=== PATIENT | male | born 1950 | race Caucasian/White ===

== ENCOUNTER 2017-11-19 07:22 | Day surgery (SDC) | payer OTHER, BC ==
[2017-11-18 11:21] VITALS: BMI 31.8
[2017-11-19] MEDS ORDERED: PROMETHAZINE HCL 25 MG/1 ML VIAL IVPB PRN (09:35)
[2017-11-19] MEDS ORDERED: ONDANSETRON 4 MG/2 ML VIAL IVPUSH PRN (09:35)
[2017-11-19] MEDS ORDERED: PROPOFOL 20 ML ONE ×2 (09:40→11:11)
[2017-11-19] MEDS ORDERED: MIDAZOLAM HCL 2 MG/2 ML SINGLE DOSE VIAL ONE (09:40)
[2017-11-19] MEDS ORDERED: LACTATED RINGERS SOLUTION 1,000 ML IV SCH (09:45)
[2017-11-19] MEDS ORDERED: ceFAZolin SODIUM 1 GM VIAL ONE (10:06)
[2017-11-19] MEDS ORDERED: SODIUM CHLORIDE 0.9% P/F 10 ML VIAL IJ ONE (10:06)
[2017-11-19] MEDS ORDERED: LIDOCAINE HCL/PF 2% SDV 5ML VIAL ONE (10:11)
[2017-11-19] MEDS ORDERED: ceFAZolin SODIUM 1 GM VIAL IVPB ONE ×2 (10:12)
[2017-11-19] MEDS ORDERED: LIDOCAINE HCL 1%, 10 MG/ML (20ML VIAL) PNB ONE (10:40)
--- NOTE | 2017-11-19 10:57 | EKG ---
Test Reason : Blood Pressure : / mmHG Vent. Rate : 067 BPM Atrial Rate : 067 BPM P-R Int : 182 ms QRS Dur : 086 ms QT Int : 406 ms P-R-T Axes : 063 053 055 degrees QTc Int : 429 ms NORMAL SINUS RHYTHM NORMAL ECG NO PREVIOUS ECGS AVAILABLE Confirmed by CLAY MOHAN, RHIANNA ([id number]) on 11/19/2017 10:57:26 AM Referred By: VIRAL AMAYA Confirmed By:RHIANNA WILLIAMSON MD
[2017-11-19] MEDS ORDERED: IOHEXOL 300 MG/ML INFUS..BTL IV ONE (11:39)
[2017-11-19] MEDS ORDERED: CLOPIDOGREL BISULFATE 75 MG TABLET (FP) PO ONE (11:52)
--- NOTE | 2017-11-19 11:52 | HP ---
Admitting History and Physical - Admission Chief Complaint: left heel ulcer - Advance Directives Advance Directives: Yes: Health Care Proxy - Smoking History Smoking history: Former smoker Have you smoked in the past 12 months: No If you are a former smoker, when did you quit?: 25 years ago - Alcohol/Substance Use Hx Alcohol Use: No Home Medications - Allergies Allergies/Adverse Reactions: Allergies Allergy/AdvReac Type Severity Reaction Status Date / Time levofloxacin [From Levaquin] Allergy Intermediate Verified 11/18/17 11:35 morphine Allergy Intermediate Vomiting Verified 11/18/17 11:35 codeine AdvReac Verified 10/13/17 15:00 - Home Medications Home Medications: Ambulatory Orders Collagenase Clostridium Hist. [Santyl] 1 applic TP DAILY #90 oint...g. 10/13/17 Amoxicillin/Potassium Clav [Augmentin 500-125 Tablet] 1 each PO BID 11/18/17 Aspirin Coated [Ecotrin -] 81 mg PO DAILY 11/18/17 Insulin Glargine/Lixisenatide [Soliqua 100 Unit-33 Mcg/ml Pen] 6 ml SQ ACBK Pregabalin [Lyrica] 100 mg PO BID 11/18/17 Review of Systems - Review of Systems Constitutional: reports: No Symptoms Eyes: reports: No Symptoms HENT: reports: No Symptoms Neck: reports: No Symptoms Cardiovascular: reports: No Symptoms Respiratory: reports: No Symptoms Gastrointestinal: reports: No Symptoms Genitourinary: reports: No Symptoms Breasts: reports: No Symptoms Reported Musculoskeletal: reports: No Symptoms Integumentary: reports: No Symptoms Neurological: reports: No Symptoms Endocrine: reports: No Symptoms Hematology/Lymphatic: reports: No Symptoms Psychiatric: reports: No Symptoms Physical Examination Vital Signs: Vital Signs Temperature 98.2 F 11/19/17 08:12 Pulse Rate 66 11/19/17 08:12 Respiratory Rate 18 11/19/17 08:12 Blood Pressure 138/76 11/19/17 08:12 O2 Sat by Pulse Oximetry (%) 97 11/19/17 08:13 Constitutional: Yes: Well Nourished, No Distress, Calm Eyes: Yes: WNL, Conjunctiva Clear, EOM Intact HENT: Yes: WNL, Atraumatic, Normocephalic Neck: Yes: WNL, Supple, Trachea Midline Cardiovascular: Yes: WNL, Regular Rate and Rhythm Respiratory: Yes: WNL, Regular, CTA Bilaterally Gastrointestinal: Yes: WNL, Normal Bowel Sounds Musculoskeletal: Yes: WNL Extremities: Yes: WNL Edema: No Integumentary: Yes: WNL Neurological: Yes: WNL, Alert, Oriented ...Motor Strength: WNL Psychiatric: Yes: WNL Problem List - Problems (1) Diabetic foot ulcer Code(s): E11.621 - TYPE 2 DIABETES MELLITUS WITH FOOT ULCER; L97.509 - NON- PRESSURE CHRONIC ULCER OTH PRT UNSP FOOT W UNSP SEVERITY Assessment/Plan left heel ulcer 1. for angiogram today
--- NOTE | 2017-11-19 11:56 | OP ---
Operative Note - Note: Operative Date: 11/19/17 Pre-Operative Diagnosis: left heel ulcer Operation: Aortogram, LLE angiogram, ant tibial artery angioplasty , SFA, Popliteal artery DCB angioplasty . Findings: SFA/Pop 80% stenosis Post-Operative Diagnosis: Same as Pre-op Anesthesia: Fractional Estimated Blood Loss (mls): 50 Operative Report Dictated: Yes
[2017-11-19 13:12] VITALS: TEMP 97.8
--- NOTE | 2017-11-19 16:35 | OP ---
DATE OF OPERATION: 11/19/2017 PREOPERATIVE DIAGNOSIS: Left heel ulcer. POSTOPERATIVE DIAGNOSIS: Left heel ulcer. PROCEDURE: Aortogram, left lower extremity angiogram, anterior tibial artery angioplasty, superficial popliteal artery, and DCB angioplasty. SURGEON: Matt Mix D.O. ANESTHESIA: Fractional. BLOOD LOSS: 50 mL. INDICATION FOR PROCEDURE: The patient is a 67-year-old male with a left heel ulcer that has been non-healing for about 6 months. Preoperative ultrasound showed that he has superficial popliteal artery disease and it was decided that he would need an angiogram. The patient was cleared by Cardiology. The patient then came through Ambulatory Surgery. The patient was consented for the procedure, understanding all the risks, benefits and alternatives and was then taken to the operating room. DESCRIPTION OF THE PROCEDURE: Once in the operating room he was laid on the operating table in a supine manner. The areas of the right and left groin were prepped and draped in a sterile surgical manner. We then injected 10 mL of lidocaine 1% into the right groin. We then went ahead and took our micropuncture needle and punctured the right common femoral artery. The micropuncture wire was inserted and the micropuncture sheath was inserted. We then placed a 0.035 floppy guidewire into the aorta followed by an Omniflush catheter. We then shot an aortogram via hand injection showing that the aorta and the coronary arteries were without any disease. We then placed a 0.035 floppy guidewire up and over to the left common femoral artery and into the SFA. We then placed a 6 x 45 crossover sheath up and over the left common femoral artery. Then 5000 units of IV heparin were administered to the patient. We then went ahead and shot an angiogram of the left lower extremity showing that the SFA, profunda, and the common femoral artery but the distal SFA had a 90% stenosis above the knee and the popliteal artery had an 80% stenosis. The anterior tibial artery was occluded. PT trunk was patent and the patient had a 2-vessel run off into the foot which was PT and peroneal. At this point we went ahead and got our 0.035 stiff guidewire through the stenosis and the SFA vein and popliteal artery and placed it down into the anterior tibial artery. We exchanged for a wire. We then used a 2.5 x 220 Ultraverse balloon and formed an angioplasty of the anterior tibial artery. We then went ahead and used a 4 x 100 DCB balloon and performed DCB angioplasty of the SFA vein and popliteal artery of both stenoses. Completion angiogram now showed that the SFA vein and popliteal arteries were patent. The anterior tibial artery was still occluded. TP trunk was patent and the patient had 2-vessel runoff into the foot. Opening the proximal lesions will now get more blood flow down to the heel and at this point no more intervention was needed. We brought our sheath up and over and the StarClose device was successfully deployed in the right common femoral artery. Pressure was up for 5 minutes. After there was no more bleeding, the area was wet and dried and Dermabond was placed. The patient tolerated the procedure with no complication. The patient was transferred to the PACU in stable condition. MATT MIX DO [id number]
[2017-11-19 17:19] VITALS: BP 142/74; PULSE 71
== END 2017-11-19 16:30 | disposition home or self-care (01) ==
LOC: JASU-SURG 07:22
PROVIDERS: ATTEND Surgery Vascular Surgery
PROC: 047L3Z1 Dilation of Left Femoral Artery using Drug-Coated Balloon, Percutaneous Approach (ICD-10-PCS; 2017-11-19)
PROC: B41DZZZ Fluoroscopy of Aorta and Bilateral Lower Extremity Arteries (ICD-10-PCS; 2017-11-19)
PROC: 047N3Z1 Dilation of Left Popliteal Artery using Drug-Coated Balloon, Percutaneous Approach (ICD-10-PCS; principal; 2017-11-19 09:00)
DX: E11.621 Type 2 diabetes mellitus with foot ulcer (principal); L97.509 Non-pressure chronic ulcer of other part of unspecified foot with unspecified severity; Z79.4 Long term (current) use of insulin; I70.202 Unspecified atherosclerosis of native arteries of extremities, left leg; Z87.891 Personal history of nicotine dependence
CPT/HCPCS: 37224; C1725; C2623; 76000-TC; 82962; 93005; 93010; 94760; J1644

== ENCOUNTER 2018-01-06 12:21 | Inpatient (IN) | payer OTHER, BC ==
[2018-01-06 12:27] VITALS: BMI 30.7
--- NOTE | 2018-01-06 12:33 | PDOC ---
History of Present Illness <Kaylene Garcia - Last Filed: 01/06/18 16:07> - History of Present Illness Initial Comments: 01/06/18 12:34 Mr. Red is a 67 yo male w/ pmh of DM, quadruple bypass, leg stent on plavix , stroke, and chronic wound to left heel recently grafted by Dr. Garcia who presents complaining of pain and swelling in his right hand. He had initially noticed a small cut to the mid proximal phalange of his 2nd finger on the right hand on friday and was given a bandaid to put on it at his hyperbarics session. He took off the bandage today and noticed that his finger had swollen. He also complains of pain with flexion/extension of the finger and that he believes the dorsum of his hand is swollen as well. Mr. Red cannot recall his last tetanus immunization. The patient denies chest pain, shortness of breath, headache and dizziness. Denies fever, chills, nausea, vomit, diarrhea and constipation. Denies dysuria, frequency, urgency and hematuria. Allergies: Levofloxacin, morphine, codeine <Raman Stoll - Last Filed: 01/06/18 16:49> - General Chief Complaint: Wound Stated Complaint: RT FINGER WOUND (WOUND CARE SENT) Time Seen by Provider: 01/06/18 12:33 Past History <Kaylene Garcia - Last Filed: 01/06/18 16:07> - Past Medical History Anemia: No Asthma: No Cancer: No Cardiac Disorders: No CVA: Yes COPD: No CHF: No Dementia: No Diabetes: Yes GI Disorders: No Disorders: No HTN: Yes Hypercholesterolemia: No Liver Disease: No Seizures: No Thyroid Disease: No - Surgical History Abdominal Surgery: Yes Appendectomy: No Cardiac Surgery: Yes (quad bypass) Cholecystectomy: No Lung Surgery: No Neurologic Surgery: Yes (diac replaced - titanium screws) Orthopedic Surgery: Yes - Immunization History Immunization Up to Date: Yes - Suicide/Smoking/Psychosocial Hx Smoking History: Never smoked Have you smoked in the past 12 months: No If you are a former smoker, when did you quit?: 25 years ago Information on smoking cessation initiated: No Hx Alcohol Use: No Drug/Substance Use Hx: No Substance Use Type: None <Raman Stoll - Last Filed: 01/06/18 16:49> - Past Medical History Allergies/Adverse Reactions: Allergies Allergy/AdvReac Type Severity Reaction Status Date / Time levofloxacin [From Levaquin] Allergy Intermediate Verified 01/06/18 12:24 morphine Allergy Intermediate Vomiting Verified 01/06/18 12:24 codeine AdvReac Verified 01/06/18 12:24 Home Medications: Ambulatory Orders Collagenase Clostridium Hist. [Santyl] 1 applic TP DAILY #90 oint...g. 10/13/17 Aspirin Coated [Ecotrin -] 81 mg PO DAILY 11/18/17 Insulin Glargine/Lixisenatide [Soliqua 100 Unit-33 Mcg/ml Pen] 6 ml SQ ACBK Pregabalin [Lyrica] 100 mg PO BID 11/18/17 Clopidogrel Bisulfate [Plavix -] 75 mg PO DAILY #120 tablet MDD 1 11/19/17 Becaplermin [Regranex] 15 gm TP DAILY #1 gel..gram. 11/28/17 Becaplermin [Regranex] 15 gm TP DAILY #1 gel..gram. 12/19/17 Review of Systems - Review of Systems Comments:: 01/06/18 12:34 GENERAL/CONSTITUTIONAL: No fever or chills. No weakness. HEAD, EYES, EARS, NOSE AND THROAT: No change in vision. No ear pain or discharge. No sore throat. CARDIOVASCULAR: No chest pain or shortness of breath RESPIRATORY: No cough, wheezing, or hemoptysis. GASTROINTESTINAL: No nausea, vomiting, diarrhea or constipation. GENITOURINARY: No dysuria, frequency, or change in urination. MUSCULOSKELETAL: +Right 2nd finger swelling with pain on movement and drainage to wound site. SKIN: No rash NEUROLOGIC: No headache, vertigo, loss of consciousness, or change in strength/ sensation. ENDOCRINE: No increased thirst. No abnormal weight change HEMATOLOGIC/LYMPHATIC: No anemia, easy bleeding, or history of blood clots. ALLERGIC/IMMUNOLOGIC: No hives or skin allergy. 01/06/18 12:50 <Raman Stoll - Last Filed: 01/06/18 16:49> *Physical Exam - Vital Signs Last Vital Signs Temp Pulse Resp BP Pulse Ox 97.4 F L 82 17 140/66 99 01/06/18 12:24 01/06/18 12:24 01/06/18 12:24 01/06/18 12:24 01/06/18 12:24 <Kaylene Garcia - Last Filed: 01/06/18 16:07> - Vital Signs Last Vital Signs Temp Pulse Resp BP Pulse Ox 97.4 F L 82 17 140/66 99 01/06/18 12:24 01/06/18 12:24 01/06/18 12:24 01/06/18 12:24 01/06/18 12:24 - Physical Exam Comments: 01/06/18 12:34 GENERAL: Awake, alert, and fully oriented, in no acute distress HEAD: No signs of trauma, normocephalic, atraumatic EYES: PERRLA, EOMI, sclera anicteric, conjunctiva clear ENT: Auricles normal inspection, hearing grossly normal, nares patent, oropharynx clear without exudates. Moist mucosa NECK: Normal ROM, supple, no lymphadenopathy, JVD, or masses LUNGS: No distress, speaks full sentences, clear to auscultation bilaterally HEART: Regular rate and rhythm, normal S1 and S2, no murmurs, rubs or gallops, peripheral pulses normal and equal bilaterally. ABDOMEN: Soft, nontender, normoactive bowel sounds. No guarding, no rebound. No masses EXTREMITIES: +Right 2nd proximal phalange has 1/2 cm abbrasion draining bloody fluid on dorsum of finger. Finger and dorsum of hand noted to be warm, swollen, and painful to flexion. NEUROLOGICAL: Cranial nerves II through XII grossly intact. Normal speech, normal gait, no focal sensorimotor deficits SKIN: Warm, Dry, normal turgor, no rashes or lesions noted. <Raman Stoll - Last Filed: 01/06/18 16:49> ED Treatment Course - LABORATORY CBC & Chemistry Diagram: 01/06/18 13:22 01/06/18 13:22 - ADDITIONAL ORDERS Additional order review: Laboratory Results 01/06/18 13:22 Sodium 139 Potassium 4.3 Chloride 105 Carbon Dioxide 24 Anion Gap 10 BUN 33 H Creatinine 2.6 H Creat Clearance w eGFR 24.67 Random Glucose 288 H Calcium 8.1 L Total Bilirubin 0.3 AST 13 L ALT 13 Alkaline Phosphatase 64 Total Protein 6.7 Albumin 2.9 L 01/06/18 13:22 RBC 3.73 L MCV 78.5 L MCHC 32.6 RDW 14.9 MPV 9.5 Neutrophils % 79.1 Lymphocytes % 11.2 Monocytes % 7.6 Eosinophils % 1.3 Basophils % 0.8 - Medications Given in the ED: ED Medications Discontinued Medications Generic Name Dose Route Start Last Admin Trade Name Melissa PRN Reason Stop Dose Admin Diphtheria/Tetanus/Acell Pertussis 0.5 ml 01/06/18 12:55 01/06/18 13:01 Boostrix - IM 01/06/18 12:56 0.5 ml .ONCE ONE Administration Vancomycin HCl 1,000 mg 01/06/18 12:56 01/06/18 14:05 Vancomycin (Pre-Docked) IVPB 01/06/18 12:57 1,000 mg ONCE ONE Administration Protocol <Kaylene Garcia - Last Filed: 01/06/18 16:07> - LABORATORY CBC & Chemistry Diagram: 01/06/18 13:22 01/06/18 13:22 <Raman Stoll - Last Filed: 01/06/18 16:49> Medical Decision Making - Medical Decision Making 01/06/18 14:35 Dr. Avila was paged and notified via phone service. Second page was placed at 15 :29. Third page was sent at 15:56. Dr. Avila returned our call at 16:07, her patients will be admitted to Hospitalist service. <Kaylene Garcia - Last Filed: 01/06/18 16:07> - Medical Decision Making 01/06/18 13:00 Mr. Red is a 67 yo male w/ pmh as described who presents w/ wound concerning for cellulitis. Wound culture sent. Tetanus booster given. Vancomycin /Unasyn started in ER. CBC/CMP/XR sent for further evaluation. 01/06/18 14:34 Dr. Avila (admitting for Dr. Adam) paged for admission. 01/06/18 16:47 Signout given to Kassidy (PRECIOUS). Admitted to Dr. Serrano <Raman Stoll - Last Filed: 01/06/18 16:49> *DC/Admit/Observation/Transfer <Kaylene Garcia - Last Filed: 01/06/18 16:07> - Discharge Dispostion Admit: Yes <Raman Stoll - Last Filed: 01/06/18 16:49> Diagnosis at time of Disposition: Cellulitis Qualifiers: Site of cellulitis: unspecified site Qualified Code(s): L03.90 - Cellulitis, unspecified - Referrals Referrals: Joaquín Adam MD [Primary Care Provider] -
[2018-01-06] MEDS ORDERED: DIPHTH,PERTUSS(ACELL),TET 0.5 ML DISP.SYRIN IM ONE (12:55)
[2018-01-06] MEDS ORDERED: VANCOMYCIN 1 GRAM (PRE-DOCKED) 1,000 MG/250 ML BAG IVPB ONE ×2 (12:56→14:00)
[2018-01-06] MEDS ORDERED: AMPICILLIN NA/SULBACTAM NA 3 GM in SODIUM CHLORIDE 100 ML IVPB ONE (13:02)
[2018-01-06 13:36] LABS: BASO % 0.8 % (0-2.0); EOS % 1.3 % (0-4.5); HEMATOCRIT 29.3 % (35.4-49); HEMOGLOBIN 9.6 GM/dL (11.7-16.9); LYMPH % 11.2 % (8-40); MCH 25.6 pg (25.7-33.7); MCHC 32.6 g/dl (32.0-35.9); MEAN CELL VOLUME 78.5 fl (80-96); MEAN PLT VOLUME 9.5 fl (7.5-11.1); MONO % 7.6 % (3.8-10.2); NEUT % 79.1 % (42.8-82.8); PLATELET COUNT 248 K/MM3 (134-434); RBC 3.73 M/mm3 (4.00-5.60); RDW 14.9 % (11.9-15.9); WHITE BLOOD COUNT 8.9 K/mm3 (4.0-10.0)
[2018-01-06 14:06] LABS: ALBUMIN 2.9 g/dl (3.4-5.0); ANION GAP 10 (8-16); BLOOD UREA NITROGEN 33 mg/dL (7-18); CALCIUM 8.1 mg/dL (8.5-10.1); CHLORIDE 105 mmol/L (98-107); CO2 24 mmol/L (21-32); CREATININE 2.6 mg/dL (0.7-1.3); GLUCOSE,RANDOM 288 mg/dL (74-106); POTASSIUM 4.3 mmol/L (3.5-5.1); SGOT/AST 13 U/L (15-37); SGPT/ALT 13 U/L (12-78); SODIUM 139 mmol/L (136-145)
[2018-01-06 14:07] LABS: ALK PHOS 64 U/L (45-117); BILIRUBIN,TOTAL 0.3 mg/dL (0.2-1.0); TOT PROT 6.7 g/dl (6.4-8.2)
--- NOTE | 2018-01-06 14:26 | PDOC ---
Attending Attestation - Resident Resident Name: Raman Stoll - ED Attending Attestation I have performed the following: I have examined & evaluated the patient, The case was reviewed & discussed with the resident, I agree w/resident's findings & plan, Exceptions are as noted - HPI HPI: 01/06/18 14:23 67-year-old male with history of CVA, CABG, diabetes sent from wound clinic with worsening right hand infection/swelling over the last 4 days. No fevers or chills, glucose has been at his baseline. - Physicial Exam PE: 01/06/18 14:24 Afebrile. 2-3 mm relatively superficial ulceration on the dorsal aspect of the proximal phalanx of the right index finger, surrounding near circumferential induration and erythema, dorsal hand swelling with discomfort extending to the distal third of the right forearm. There is no crepitus, there is circumferential swelling around the right index finger but no flexor tendon tenderness, full range of motion with brisk cap refill and intact sensation - Medical Decision Making 01/06/18 14:25 Patient seen and evaluated with the resident. I agree with the overall evaluation, assessment, and management with the following summary of visit: 67-year-old male diabetic with worsening right finger/hand cellulitis with proximal extension. Afebrile and neurovascularly intact, but progressive illness. Check labs and right hand x-ray IV antibiotics Likely observation overnight for iv abx Heart Score/ECG Review #1 ECG reviewed & interpreted by me at: 14:48 General ECG Interpretation: Sinus Rhythm, Normal Rate (79), Normal Intervals ( qtc 454), No acute ischemic changes (TWI I/AVL, Q in III)
--- NOTE | 2018-01-06 15:51 | EKG ---
Test Reason : Blood Pressure : / mmHG Vent. Rate : 079 BPM Atrial Rate : 079 BPM P-R Int : 174 ms QRS Dur : 092 ms QT Int : 396 ms P-R-T Axes : 051 022 066 degrees QTc Int : 454 ms NORMAL SINUS RHYTHM INCOMPLETE RIGHT BUNDLE BRANCH BLOCK ABNORMAL ECG WHEN COMPARED WITH ECG OF 19-NOV-2017 09:59, NO SIGNIFICANT CHANGE WAS FOUND Confirmed by MD Cruz, Garrett ([id number]) on 01/06/2018 3:50:56 PM Referred By: Confirmed By:Garrett Arroyo MD
--- NOTE | 2018-01-06 18:05 | HP ---
CHIEF COMPLAINT: Right hand tenderness and swelling PCP: Dr. Joaquín Adam HISTORY OF PRESENT ILLNESS: Patient is a 67 year old male with a significant past medical history of quadruple bypass, leg stent (on Plavix), CVA, chronic wound to left heal with a recent graft by Dr. Garcia. Patient was sent to the ED today after being seen at wound care for pain and swelling of his right hand, 2nd finger. Patient was scheduled for hyperbarics today but it was noted that his finger was swollen, reddended and tender to touch. He states he has limited range of motion and feels that his entire right hand is swollen. In the ED he was given a tetanus immunization. He was given a dose of Vancomycin and Unasyn also. On exam, patient is ambulatory with a steady gait, in no acute distress. States his right hand is painful to touch and he is unable to close his hand fully without experiencing pain/discomfort. Patient is s/p apiligraf on 2017 for left heal diabetic foot ulcer. Of note, in the ED he was noted to have an elevated creatinine of 2.6. No other visits on records to compare previous labs. ER course was notable for: (1) Vancomycin and Unasyn for right hand, 2nd finger cellulitis (2) Creatinine 2.6 (3) Right hand xray negative for fracture Recent Travel: PAST MEDICAL HISTORY: quadruple bypass, leg stent (on Plavix), CVA, chronic wound to left heal with a recent graft by Dr. Garcia. PAST SURGICAL HISTORY: Social History: Smoking: denies Alcohol: denies Drugs: denies Family History: Allergies levofloxacin [From Levaquin] Allergy (Intermediate, Verified 01/06/18 12:24) CHILLS/SHAKES morphine Allergy (Intermediate, Verified 01/06/18 12:24) Vomiting codeine Adverse Reaction (Verified 01/06/18 12:24) HOME MEDICATIONS: Home Medications Medication Instructions Recorded Collagenase Clostridium Hist. 1 applic TP DAILY #90 oint...g. 10/13/17 [Santyl] Aspirin Coated [Ecotrin -] 81 mg PO DAILY 11/18/17 Insulin Glargine/Lixisenatide 6 ml SQ ACBK 11/18/17 [Soliqua 100 Unit-33 Mcg/ml Pen] Pregabalin [Lyrica] 100 mg PO BID 11/18/17 Clopidogrel Bisulfate [Plavix -] 75 mg PO DAILY #120 tablet MDD 1 11/19/17 Becaplermin [Regranex] 15 gm TP DAILY #1 gel..gram. 11/28/17 Becaplermin [Regranex] 15 gm TP DAILY #1 gel..gram. 12/19/17 PHYSICAL EXAMINATION Vital Signs - 24 hr 01/06/18 12:24 Temperature 97.4 F L Pulse Rate 82 Respiratory 17 Rate Blood Pressure 140/66 O2 Sat by Pulse 99 Oximetry (%) GENERAL: Awake, alert, and fully oriented, in no acute distress. HEAD: Normal with no signs of trauma. EYES: Pupils equal, round and reactive to light, extraocular movements intact, sclera anicteric, conjunctiva clear. No lid lag. EARS, NOSE, THROAT: Ears normal, nares patent, oropharynx clear without exudates. Moist mucous membranes. NECK: Normal range of motion, supple without lymphadenopathy, JVD, or masses. LUNGS: Breath sounds equal, clear to auscultation bilaterally. No wheezes, and no crackles. No accessory muscle use. HEART: Regular rate and rhythm, normal S1 and S2 without murmur, rub or gallop. ABDOMEN: Soft, nontender, not distended, normoactive bowel sounds, no guarding, no rebound, no masses. No hepatomegaly or splenomegaly. LOWER EXTREMITIES: left heel diabetic foot ulcer s/p apilgraf, dressing c/d/i UPPER EXT: Right 2nd proximal phalange with 0.5cm of abrasion/scab, no open lesions. Finger and hand with limited ROM, warm and tender to touch NEUROLOGICAL: Normal speech. Normal gait. PSYCHIATRIC: Cooperative. Good eye contact. Appropriate mood and affect. + Laboratory Results - last 24 hr 01/06/18 01/06/18 13:22 13:22 WBC 8.9 RBC 3.73 L Hgb 9.6 L Hct 29.3 L MCV 78.5 L MCH 25.6 L MCHC 32.6 RDW 14.9 Plt Count 248 MPV 9.5 Neutrophils % 79.1 Lymphocytes % 11.2 Monocytes % 7.6 Eosinophils % 1.3 Basophils % 0.8 Sodium 139 Potassium 4.3 Chloride 105 Carbon Dioxide 24 Anion Gap 10 BUN 33 H Creatinine 2.6 H Creat Clearance w eGFR 24.67 Random Glucose 288 H Calcium 8.1 L Total Bilirubin 0.3 AST 13 L ALT 13 Alkaline Phosphatase 64 Total Protein 6.7 Albumin 2.9 L ASSESSMENT/PLAN: Patient is a 67 year old male with a significant past medical history of quadruple bypass, leg stent (on Plavix), CVA, chronic wound to left heal with a recent graft by Dr. Garcia. Patient was sent to the ED today after being seen at wound care for pain and swelling of his right hand, 2nd finger. Patient was scheduled for hyperbarics today but it was noted that his finger was swollen, reddended and tender to touch. He states he has limited range of motion and feels that his entire right hand is swollen. In the ED he was given a tetanus immunization. He was given a dose of Vancomycin and Unasyn also. On exam, patient is ambulatory with a steady gait, in no acute distress. States his right hand is painful to touch and he is unable to close his hand fully without experiencing pain/discomfort. Patient is s/p apiligraf on 2017 for left heal diabetic foot ulcer. Of note, in the ED he was noted to have an elevated creatinine of 2.6. No other visits on records to compare previous labs. Vascular: Right 2nd proximal phalange with 0.5cm of abrasion/scab, no open lesions Hand xray negative for fracture Start on Unasyn q8 Wound culture pending Blood cultures ordered, but given antbx in ED Monitor labs, vitals Vascular consult (Dr. Garcia) Endocrine: Diabetes II, chronic Novolg SS Renal: MALIA @ 2.6 No other labs to compare Hydrate overnight and repeat labs F.E.N. Fluids: NS @ 50cc/hr Electrolytes: monitor Nutrition: diabetic diet. Prophylaxis DVT: deferred, LOS < 48 hrs Disposition: full code. Visit type - Emergency Visit Emergency Visit: Yes ED Registration Date: 01/06/18 Care time: The patient presented to the Emergency Department on the above date and was hospitalized for further evaluation of their emergent condition. - New Patient This patient is new to me today: Yes Date on this admission: 01/06/18 - Critical Care Critical Care patient: No Hospitalist Screening - Colonoscopy Questionnaire Colonoscopy Questionnaire: Colonoscopy Questionnaire - Patient: 50 - 75 years old and never had a screening colonoscopy: Unknown History of colon or rectal polyps, or CA: Unknown History of IBD, Crohn's disease or UC: Unknown History of abdominal radiation therapy as a child: Unknown - Relative: 1 with colon or rectal CA, or polyps at age 60 or younger: Unknown Colon or rectal CA diagnosed at age 45 or younger: Unknown Multiple relatives with colon or rectal CA: Unknown - Outcome: Screening Result: Negative Screen
[2018-01-06] MEDS: SODIUM CHLORIDE 1,000 ML IV SCH (21:15)
[2018-01-06] MEDS ORDERED: INSULIN (NOVOLOG) ASPART 100 UNITS/ML 10ML VIAL ONE (21:17)
[2018-01-06] MEDS ORDERED: INSULIN SLIDING SCALE (NOVOLOG) 1 VIAL SQ SCH (22:00)
[2018-01-06] MEDS: PREGABALIN 100 MG CAPSULE PO SCH (22:16)
[2018-01-06] MEDS: ZOLPIDEM TARTRATE 5 MG TABLET PO PRN (22:16)
[2018-01-06] MEDS ORDERED: ACETAMINOPHEN 325 MG TABLET (FP) PO PRN (22:57)
[2018-01-07] MEDS: AMPICILLIN NA/SULBACTAM NA 3 GM in SODIUM CHLORIDE 100 ML IVPB SCH ×2 (01:23→09:59)
[2018-01-07] MEDS ORDERED: PT OWN MED DRAWER 7, Y5N ONE ×4 (09:52→17:11)
[2018-01-07] MEDS: CLOPIDOGREL BISULFATE 75 MG TABLET (FP) PO SCH (09:59)
[2018-01-07] MEDS: PREGABALIN 100 MG CAPSULE PO SCH ×2 (09:59→21:46)
--- NOTE | 2018-01-07 12:32 | CON.ID ---
Consult Consult Specialty:: infectious disease Referred by:: hospitalist service Reason for Consultation:: finger swelling - History of Present Illness Chief Complaint: finger swelling History of Present Illness: 67 year old man with longstanding diabetes, chronic left heel ulcer- followed at the wound care center by Dr Garcia seen Friday for apligraf placement for his chronic heel wound- he went to hyperbaric after and noted his finger was bleeding- not sure how that happened they gave him a bandaid on Friday he noted the finger was swollen, yesterday he noted pain and swelling of the hand with erythema streaking up the hand to the wrist no fevers seen in ED given tetanus toxoid and vanco/unasyn no blood cultures sent reports there was pus draining from the finger yesterday- now stopped no prior abscesses he has had 2 major surgeries in the last several years- no major infectious complications- cabg and gastric bypass 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 Medical History Cardio/Vascular: Yes: CAD, Other (PAD) Endocrine: Yes: Diabetes Mellitus - Past Surgical History Past Surgical History: Yes: CABG Additional Surgical History: gastric bypass, left leg stent - Alcohol/Substance Use Hx Alcohol Use: No History of Substance Use: reports: None - Smoking History Smoking history: Never smoked Have you smoked in the past 12 months: No If you are a former smoker, when did you quit?: 25 years ago - Social History ADL: Independent History of Recent Travel: No Home Medications - Allergies Allergies/Adverse Reactions: Allergies Allergy/AdvReac Type Severity Reaction Status Date / Time levofloxacin [From Levaquin] Allergy Intermediate Verified 01/06/18 12:24 morphine Allergy Intermediate Vomiting Verified 01/06/18 12:24 codeine AdvReac Verified 01/06/18 12:24 - Home Medications Home Medications: Ambulatory Orders Collagenase Clostridium Hist. [Santyl] 1 applic TP DAILY #90 oint...g. 10/13/17 Aspirin Coated [Ecotrin -] 81 mg PO DAILY 11/18/17 Insulin Glargine/Lixisenatide [Soliqua 100 Unit-33 Mcg/ml Pen] 6 ml SQ ACBK Pregabalin [Lyrica] 100 mg PO BID 11/18/17 Clopidogrel Bisulfate [Plavix -] 75 mg PO DAILY #120 tablet MDD 1 11/19/17 Becaplermin [Regranex] 15 gm TP DAILY #1 gel..gram. 12/19/17 Zolpidem Tartrate [Ambien] 0 mg PO HS 01/06/18 Family Disease History - Family Disease History Family History: Unremarkable Review of Systems - Review of Systems Constitutional: reports: No Symptoms. denies: Chills, Fever Eyes: reports: No Symptoms HENT: reports: No Symptoms Neck: reports: No Symptoms Cardiovascular: reports: No Symptoms. denies: Chest Pain Respiratory: reports: No Symptoms. denies: Cough Gastrointestinal: reports: No Symptoms. denies: Abdominal Pain, Diarrhea Genitourinary: reports: No Symptoms Neurological: reports: No Symptoms Physical Exam Vital Signs: Vital Signs Temperature 98.7 F 01/07/18 09:20 Pulse Rate 85 01/07/18 09:20 Respiratory Rate 18 01/07/18 09:20 Blood Pressure 134/62 01/07/18 09:20 O2 Sat by Pulse Oximetry (%) 98 01/06/18 20:19 Constitutional: Yes: Well Nourished, No Distress, Calm Eyes: Yes: WNL, Conjunctiva Clear HENT: Yes: Atraumatic, Normocephalic Neck: Yes: Supple, Trachea Midline Cardiovascular: Yes: Regular Rate and Rhythm Respiratory: Yes: Regular, CTA Bilaterally Gastrointestinal: Yes: Normal Bowel Sounds, Soft. No: Tenderness, Epigastrium ...Rectal Exam: Yes: Deferred Extremities: Yes: Other (swelling of the seond finger of the right hand, able to bend finger, +flluctuance, +erythema radial pulse 2+) Edema: No Peripheral Pulses WNL: Yes Neurological: Yes: Alert, Oriented Psychiatric: Yes: Alert, Oriented Labs: CBC, BMP 01/06/18 13:22 01/06/18 13:22 Microbiology 01/06/18 13:00 Wound Gram Stain - Final 01/06/18 13:00 Wound Wound Culture - Preliminary Presumptive Mrsa (Pbp2a Pos) Beta Hemolytic Strep Imaging - Results Chest X-ray: Report Reviewed X-ray: Report Reviewed Problem List - Problems (1) Cellulitis Code(s): L03.90 - CELLULITIS, UNSPECIFIED Qualifiers: Site of cellulitis: unspecified site Qualified Code(s): L03.90 - Cellulitis , unspecified (2) Abscess of finger of right hand Code(s): L02.511 - CUTANEOUS ABSCESS OF RIGHT HAND (3) Renal insufficiency Code(s): N28.9 - DISORDER OF KIDNEY AND URETER, UNSPECIFIED Assessment/Plan continue vancomycin based on levels- wound culture strep and probable mrsa isolate, redose if less then 15 hand surgery consult ?renal eval - is renal insuff new?
--- NOTE | 2018-01-07 13:47 | PN ---
Physical Exam: SUBJECTIVE: Patient seen and examined. He denies fever, chills. He has tenderness to r hand. Denies seeing a kidney doctor, knows his cr is high attributed to dehydration. OBJECTIVE: Vital Signs Period Temp Pulse Resp BP Sys/Snow Pulse Ox Last 24 Hr 98.6 F-99.4 F 80-85 18-18 115-146/54-85 96-98 PE Neuro: alert, awake, cn 2-12intact Pulm: CTAB CV: s1 s2 rrr no mrg Abd: s nt nd + bs Ext: R hand swelling, warm, R 2nd digit DIP swelling, erythema, tenderness, mild fluctuance Lfoot wound dressed +1 edema Laboratory Results - last 24 hr 01/06/18 01/06/18 01/07/18 13:22 21:14 06:59 Sodium 139 Potassium 4.3 Chloride 105 Carbon Dioxide 24 Anion Gap 10 BUN 33 H Creatinine 2.6 H Creat Clearance w eGFR 24.67 POC Glucometer 288 78 Random Glucose 288 H Calcium 8.1 L Total Bilirubin 0.3 AST 13 L ALT 13 Alkaline Phosphatase 64 Total Protein 6.7 Albumin 2.9 L Active Medications Generic Name Dose Route Start Last Admin Trade Name Freq PRN Reason Stop Dose Admin Acetaminophen 650 mg 01/06/18 22:57 Tylenol - PO Q6H PRN pain 4-6 Clopidogrel Bisulfate 75 mg 01/07/18 10:00 01/07/18 09:59 Plavix - PO 75 mg DAILY LINDA Administration Sodium Chloride 1,000 mls @ 50 mls/hr 01/06/18 19:30 01/06/18 21:15 Normal Saline - IV 01/07/18 19:18 50 mls/hr ASDIR LINDA Administration Insulin Aspart 1 vial 01/06/18 22:00 01/06/18 21:17 Novolog Vial Sliding Scale - SQ 6 units HS LINDA Administration Protocol Pregabalin 100 mg 01/06/18 22:00 01/07/18 09:59 Lyrica - PO 100 mg BID LINDA Administration Zolpidem Tartrate 5 mg 01/06/18 21:38 01/06/18 22:16 Ambien - PO 5 mg HS PRN Administration INSOMNIA Microbiology 01/06/18 13:00 Wound Gram Stain - Final 01/06/18 13:00 Wound Wound Culture - Preliminary Presumptive Mrsa (Pbp2a Pos) Beta Hemolytic Strep Assessment: 67 year old male with pmhx quadruple bypass, leg stent (on Plavix), CVA, chronic wound to left heal with a recent graft by Dr. Garcia admitted with cellulitis to R 2nd finger. Plan: 1. R hand 2nd digit cellulitis - Wound cx presumptive MRSA.strep - Stop Unysan - Vanco given in ED - Repeat Vanco level now, if <15 redose 1gm - Dr. Mcleod consulted for I&D 2. DM II - ISS, BGM ACHS - Pt has own insulin pen, NF here 3. s/p leg stent - Continue plavix 4. Diabetic Neuropathy - Lyrica 100mg BID 5. MALIA on ?CKD - UA and urine studies - Urine cr, sodium, electrolytes, renal us - Renal consulted Visit type - Emergency Visit Emergency Visit: Yes ED Registration Date: 01/06/18 Care time: The patient presented to the Emergency Department on the above date and was hospitalized for further evaluation of their emergent condition. - New Patient This patient is new to me today: Yes Date on this admission: 01/07/18 - Critical Care Critical Care patient: No
[2018-01-07] MEDS ORDERED: VANCOMYCIN 1 GRAM (PRE-DOCKED) 1,000 MG/250 ML BAG IVPB ONE (15:15)
--- NOTE | 2018-01-07 15:24 | CONSULT ---
Consult Consult Specialty:: Nephrology Reason for Consultation:: MALIA - History of Present Illness Chief Complaint: sent in for right second figure swelling and erythema History of Present Illness: Pt is a 67 year old male with pmhx of DM, CABG, PCD, and left foot wound who was sent in for pain and swelling of his right hand second finger. He denies fevers or chills. The wound started as a small cut. He denies fevers or chills. I was called to evaluate him for elevated creatinine. He denies dysuria or hematuria. He takes nsaids at times. He denies history of CKD. He does have foamy urine. - History Source History Provided By: Patient, Medical Record - Past Medical History Cardio/Vascular: Yes: CAD, Other (PAD) Endocrine: Yes: Diabetes Mellitus - Past Surgical History Past Surgical History: Yes: CABG Additional Surgical History: gastric bypass, left leg stent - Alcohol/Substance Use Hx Alcohol Use: No History of Substance Use: reports: None - Smoking History Smoking history: Never smoked Have you smoked in the past 12 months: No If you are a former smoker, when did you quit?: 25 years ago - Social History ADL: Independent History of Recent Travel: No Home Medications - Allergies Allergies/Adverse Reactions: Allergies Allergy/AdvReac Type Severity Reaction Status Date / Time levofloxacin [From Levaquin] Allergy Intermediate Verified 01/06/18 12:24 morphine Allergy Intermediate Vomiting Verified 01/06/18 12:24 codeine AdvReac Verified 01/06/18 12:24 - Home Medications Home Medications: Ambulatory Orders Collagenase Clostridium Hist. [Santyl] 1 applic TP DAILY #90 oint...g. 10/13/17 Aspirin Coated [Ecotrin -] 81 mg PO DAILY 11/18/17 Insulin Glargine/Lixisenatide [Soliqua 100 Unit-33 Mcg/ml Pen] 6 ml SQ ACBK Pregabalin [Lyrica] 100 mg PO BID 11/18/17 Clopidogrel Bisulfate [Plavix -] 75 mg PO DAILY #120 tablet MDD 1 11/19/17 Becaplermin [Regranex] 15 gm TP DAILY #1 gel..gram. 12/19/17 Zolpidem Tartrate [Ambien] 0 mg PO HS 01/06/18 Family Disease History - Family Disease History Family History: Denies Review of Systems - Review of Systems Constitutional: denies: Chills, Fever Eyes: reports: No Symptoms HENT: reports: No Symptoms Neck: reports: No Symptoms Cardiovascular: reports: No Symptoms Respiratory: reports: No Symptoms Gastrointestinal: reports: No Symptoms Genitourinary: reports: No Symptoms Musculoskeletal: reports: No Symptoms Integumentary: reports: Erythema, Wound Neurological: reports: No Symptoms Endocrine: reports: No Symptoms Hematology/Lymphatic: reports: No Symptoms Psychiatric: reports: No Symptoms Physical Exam Vital Signs: Vital Signs Temperature 98.7 F 01/07/18 09:20 Pulse Rate 85 01/07/18 09:20 Respiratory Rate 18 01/07/18 09:20 Blood Pressure 134/62 01/07/18 09:20 O2 Sat by Pulse Oximetry (%) 98 01/06/18 20:19 Constitutional: Yes: Calm Eyes: Yes: Conjunctiva Clear HENT: Yes: Atraumatic Cardiovascular: Yes: S1, S2 Respiratory: Yes: CTA Bilaterally Gastrointestinal: Yes: Normal Bowel Sounds Renal/: Yes: WNL Musculoskeletal: Yes: WNL Edema: Yes Edema: LLE: Trace Wound/Incision: Yes: Open to air, Other (right hand second finger) Neurological: Yes: Oriented Psychiatric: Yes: Oriented Labs: CBC, BMP 01/06/18 13:22 01/06/18 13:22 Laboratory Tests 01/06/18 01/06/18 01/07/18 13:22 13:22 13:30 WBC 8.9 Hgb 9.6 L Plt Count 248 Sodium 139 Potassium 4.3 Chloride 105 Carbon Dioxide 24 BUN 33 H Creatinine 2.6 H Random Glucose 288 H Calcium 8.1 L AST 13 L ALT 13 Random Vancomycin 5.521 Imaging - Results Ultrasound: Report Reviewed Problem List - Problems (1) Cellulitis Code(s): L03.90 - CELLULITIS, UNSPECIFIED Qualifiers: Site of cellulitis: unspecified site Qualified Code(s): L03.90 - Cellulitis , unspecified (2) Renal insufficiency Code(s): N28.9 - DISORDER OF KIDNEY AND URETER, UNSPECIFIED (3) Diabetic foot ulcer Code(s): E11.621 - TYPE 2 DIABETES MELLITUS WITH FOOT ULCER; L97.509 - NON- PRESSURE CHRONIC ULCER OTH PRT UNSP FOOT W UNSP SEVERITY Assessment/Plan Current Medications Generic Name Dose Route Start Last Admin Trade Name Reneq PRN Reason Stop Dose Admin Acetaminophen 650 mg 01/06/18 22:57 Tylenol - PO Q6H PRN pain 4-6 Clopidogrel Bisulfate 75 mg 01/07/18 10:00 01/07/18 09:59 Plavix - PO 75 mg DAILY LINDA Administration Heparin Sodium (Porcine) 5,000 unit 01/07/18 14:00 Heparin - SQ TID LINDA Sodium Chloride 1,000 mls @ 50 mls/hr 01/06/18 19:30 01/06/18 21:15 Normal Saline - IV 01/07/18 19:18 50 mls/hr ASDIR LINDA Administration Vancomycin HCl 1,000 mg/ 250 mls @ 500 mls/hr 01/07/18 15:30 Dextrose IVPB 01/07/18 15:59 ONCE ONE Insulin Aspart 1 vial 01/07/18 16:30 Novolog Vial Sliding Scale - SQ ACHS LINDA Protocol Pregabalin 100 mg 01/06/18 22:00 01/07/18 09:59 Lyrica - PO 100 mg BID LINDA Administration Zolpidem Tartrate 5 mg 01/06/18 21:38 01/06/18 22:16 Ambien - PO 5 mg HS PRN Administration INSOMNIA Impression 1. MALIA 2. cellulitis 3. DM 4. PVD 5. insomnia 6. anemia Plan - check ua and lytes - check bmp - can start fluids, will order - cont abx - hand surgery eval - anemia workup, check iron studies and stool for occult blood - cont wound care - renal ultrasound reviewed - discussed with medical team - will order urine protein to replenishment specialist ratio as he describes foam in his urine - will need to obtain outpt labs to see what baseline replenishment specialist is Dr Daniel
[2018-01-07] MEDS ORDERED: VANCOMYCIN 1,000 MG in DEXTROSE 5%-WATER - 250 ML IVPB ONE (15:30)
[2018-01-07] MEDS: HEPARIN NA (PORCINE) 5,000 UNITS/ML 1ML VIAL SQ SCH ×2 (15:39→21:46)
[2018-01-07] MEDS: SODIUM CHLORIDE 1,000 ML IV SCH (15:53)
[2018-01-07 16:49] LABS: ANION GAP 9 (8-16); BLOOD UREA NITROGEN 36 mg/dL (7-18); CALCIUM 7.6 mg/dL (8.5-10.1); CHLORIDE 109 mmol/L (98-107); CO2 23 mmol/L (21-32); CREATININE 2.1 mg/dL (0.7-1.3); GLUCOSE,RANDOM 250 mg/dL (74-106); SODIUM 141 mmol/L (136-145)
[2018-01-07] MEDS: INSULIN SLIDING SCALE (NOVOLOG) 1 VIAL SQ SCH ×2 (17:16→21:46)
[2018-01-07] MEDS: MAG HYDROX/AL HYDROX/SIMETH 30 ML UNIT-DOSE CUP PO PRN (19:02)
[2018-01-07 19:26] LABS: URINE APPEARANCE CLEAR; URINE BILIRUBIN NEGATIVE (NEGATIVE); URINE BLOOD NEGATIVE (NEGATIVE); URINE COLOR STRAW; URINE GLUCOSE (UA) 3+ (NEGATIVE); URINE KETONE NEGATIVE (NEGATIVE); URINE LEUK ESTERASE NEGATIVE (NEGATIVE); URINE NITRITE NEGATIVE (NEGATIVE); URINE UROBILINOGEN NEGATIVE mg/dL (0.2-1.0)
[2018-01-07 20:03] LABS: URINE CREATININE 53.8 mg/dL (20-370)
[2018-01-07 20:47] LABS: URINE PROTEIN 2+ (NEGATIVE)
[2018-01-07 21:19] LABS: URINE MUCUS RARE
[2018-01-07] MEDS: ZOLPIDEM TARTRATE 5 MG TABLET PO PRN (21:46)
[2018-01-08] MEDS: HEPARIN NA (PORCINE) 5,000 UNITS/ML 1ML VIAL SQ SCH ×3 (06:30→22:07)
[2018-01-08] MEDS: INSULIN SLIDING SCALE (NOVOLOG) 1 VIAL SQ SCH ×2 (06:30→11:58)
[2018-01-08 07:49] LABS: BASO % 0.6 % (0-2.0); EOS % 2.2 % (0-4.5); HEMATOCRIT 26.5 % (35.4-49); HEMOGLOBIN 8.8 GM/dL (11.7-16.9); LYMPH % 16.1 % (8-40); MCH 25.7 pg (25.7-33.7); MEAN CELL VOLUME 77.8 fl (80-96); MEAN PLT VOLUME 9.4 fl (7.5-11.1); MONO % 7.9 % (3.8-10.2); NEUT % 73.2 % (42.8-82.8); PLATELET COUNT 236 K/MM3 (134-434); RBC 3.41 M/mm3 (4.00-5.60); RDW 14.9 % (11.9-15.9); WHITE BLOOD COUNT 8.1 K/mm3 (4.0-10.0)
--- NOTE | 2018-01-08 09:33 | PN ---
Progress Note (short form) - Note Progress Note: [facility] Pt seen and examined. Pt has right index finger cellulitis with abscess. Palpable radial pulse. General surgery already consulted for I&D of area. Will follow Matt magana DO
[2018-01-08] MEDS: PREGABALIN 100 MG CAPSULE PO SCH ×2 (10:25→22:07)
[2018-01-08] MEDS: CLOPIDOGREL BISULFATE 75 MG TABLET (FP) PO SCH (10:25)
[2018-01-08] MEDS: MAG HYDROX/AL HYDROX/SIMETH 30 ML UNIT-DOSE CUP PO PRN (10:26)
[2018-01-08] MEDS ORDERED: PT OWN MED DRAWER 7, Y5N ONE (11:44)
--- NOTE | 2018-01-08 12:30 | PN ---
Progress Note, Physician - Current Medication List Current Medications: Active Medications Acetaminophen (Tylenol -) 650 mg PO Q6H PRN PRN Reason: pain 4-6 Al Hydroxide/Mg Hydroxide (Mylanta Oral Suspension -) 30 ml PO Q6H PRN PRN Reason: INDIGESTION Last Admin: 01/08/18 10:26 Dose: 30 ml Clopidogrel Bisulfate (Plavix -) 75 mg PO DAILY [facility] Last Admin: 01/08/18 10:25 Dose: 75 mg Heparin Sodium (Porcine) (Heparin -) 5,000 unit SQ TID [facility] Last Admin: 01/08/18 06:30 Dose: 5,000 unit Insulin Aspart (Novolog Vial Sliding Scale -) 1 vial SQ ACHS [facility] PRN Reason: Protocol Last Admin: 01/08/18 11:58 Dose: 4 units Pregabalin (Lyrica -) 100 mg PO BID [facility] Last Admin: 01/08/18 10:25 Dose: 100 mg Zolpidem Tartrate (Ambien -) 5 mg PO HS PRN PRN Reason: INSOMNIA Last Admin: 01/07/18 21:46 Dose: 5 mg - Objective Vital Signs: Vital Signs Temperature 99.2 F 01/08/18 10:21 Pulse Rate 72 01/08/18 10:21 Respiratory Rate 24 01/08/18 10:21 Blood Pressure 154/70 01/08/18 10:21 O2 Sat by Pulse Oximetry (%) 98 01/07/18 20:58 Labs: CBC, BMP 01/08/18 06:30 01/07/18 16:00
--- NOTE | 2018-01-08 12:39 | CONSULT ---
Consult Consult Specialty:: hand and microsurgery Referred by:: Cornelius - Reason for Consultation:: right hand cellulitis - History of Present Illness Chief Complaint: right index finger infection History of Present Illness: 67 yo LHD male PMH DM type 2 s/p bypass, leg stent (on Plavix), CVA, chronic wound to left heal with a recent graft by Dr. Garcia. Patient was sent to the ED today after being seen at wound care for pain and swelling of his right hand , 2nd finger. Patient was scheduled for hyperbarics today but it was noted that his finger was swollen, reddended and tender to touch. He states he has limited range of motion and feels that his entire right hand is swollen. we were asked to assess. - History Source History Provided By: Patient, Medical Record Limitations to Obtaining History: No Limitations - Past Medical History Cardio/Vascular: Yes: CAD, Other (PAD) Endocrine: Yes: Diabetes Mellitus - Past Surgical History Past Surgical History: Yes: CABG Additional Surgical History: gastric bypass, left leg stent - Alcohol/Substance Use Hx Alcohol Use: No History of Substance Use: reports: None - Smoking History Smoking history: Never smoked Have you smoked in the past 12 months: No If you are a former smoker, when did you quit?: 25 years ago - Social History ADL: Independent History of Recent Travel: No Home Medications - Allergies Allergies/Adverse Reactions: Allergies Allergy/AdvReac Type Severity Reaction Status Date / Time levofloxacin [From Levaquin] Allergy Intermediate Verified 01/06/18 12:24 morphine Allergy Intermediate Vomiting Verified 01/06/18 12:24 codeine AdvReac Verified 01/06/18 12:24 - Home Medications Home Medications: Ambulatory Orders Collagenase Clostridium Hist. [Santyl] 1 applic TP DAILY #90 oint...g. 10/13/17 Aspirin Coated [Ecotrin -] 81 mg PO DAILY 11/18/17 Insulin Glargine/Lixisenatide [Soliqua 100 Unit-33 Mcg/ml Pen] 6 ml SQ ACBK Pregabalin [Lyrica] 100 mg PO BID 11/18/17 Clopidogrel Bisulfate [Plavix -] 75 mg PO DAILY #120 tablet MDD 1 11/19/17 Becaplermin [Regranex] 15 gm TP DAILY #1 gel..gram. 12/19/17 Zolpidem Tartrate [Ambien] 0 mg PO HS 01/06/18 Review of Systems - Review of Systems Constitutional: denies: Chills, Fever Eyes: denies: Blurred Vision, Recent Change in Vision HENT: denies: Difficult Swallowing, Throat Pain Neck: denies: Swollen Glands, Tenderness Respiratory: reports: Snoring. denies: Cough, SOB Gastrointestinal: denies: Abdominal Pain, Constipation, Diarrhea Genitourinary: denies: Discharge, Dysuria Musculoskeletal: denies: Muscle Pain, Muscle Weakness Integumentary: denies: Lesions, Rash Neurological: denies: Seizure, Syncope, Tremors Endocrine: denies: Unexplained Weight Gain, Unexplained Weight Loss Hematology/Lymphatic: reports: Easily Bruised, Excessive Bleeding Psychiatric: denies: Anxiety, Depression Physical Exam Vital Signs: Vital Signs Temperature 99.2 F 01/08/18 10:21 Pulse Rate 72 01/08/18 10:21 Respiratory Rate 24 01/08/18 10:21 Blood Pressure 154/70 01/08/18 10:21 O2 Sat by Pulse Oximetry (%) 98 01/07/18 20:58 Constitutional: Yes: No Distress, Calm, Obese Eyes: Yes: Conjunctiva Clear, EOM Intact HENT: Yes: Atraumatic, Normocephalic Neck: Yes: Supple, Trachea Midline Cardiovascular: Yes: Regular Rate and Rhythm, S1, S2 Respiratory: Yes: Regular, CTA Bilaterally. No: Cough Gastrointestinal: Yes: Normal Bowel Sounds, Soft. No: Tenderness ...Rectal Exam: Yes: Deferred Renal/: No: CVA Tenderness - Left, CVA Tenderness - Right Musculoskeletal: No: Muscle Pain, Muscle Weakness Extremities: Yes: Erythema (dorsum of right index finger). No: Cool, Cyanosis Edema: Yes Edema: RUE: Trace (dorsum of right index over proximal phalanx) Integumentary: Yes: Erythema (dorsal right index finger 3cm^2). No: Jaundice, Rash Wound/Incision: Yes: Open to air (right index finger), Draining, Reddened Neurological: Yes: Alert, Oriented Psychiatric: Yes: Alert, Oriented Labs: CBC, BMP 01/08/18 06:30 01/07/18 16:00 Imaging - Results Chest X-ray: Report Reviewed, Image Reviewed X-ray: Report Reviewed, Image Reviewed (right hand soft tissue swellling) Problem List - Problems (1) Abscess of finger Assessment/Plan: 67 yo male MMP including DM with right index finger abscess NPO and IVF hydration Broad spectrum IV antibiotics OR for Incision and drainge of right index finger abscess - Discussed with patient risks, benefits and alternatives of to proposed procedure, including but not limited to bleeding, infection, injury to adjacent structures, loss of function, intraabdominal abscess, need for further procedures, ; alternatives include antibiotics, delayed or no surgery - risks of this include failure of nonoperative therapy, perforation, sepsis, recurrence, . Patient desires to proceed with operation - will take to OR for above. Informed consent signed for same. Thank you for the opportunity to participate in the care of this patient. Code(s): L02.519 - CUTANEOUS ABSCESS OF UNSPECIFIED HAND (2) PVD (peripheral vascular disease) Code(s): I73.9 - PERIPHERAL VASCULAR DISEASE, UNSPECIFIED (3) Cellulitis Code(s): L03.90 - CELLULITIS, UNSPECIFIED Qualifiers: Site of cellulitis: unspecified site Qualified Code(s): L03.90 - Cellulitis , unspecified (4) Renal insufficiency Code(s): N28.9 - DISORDER OF KIDNEY AND URETER, UNSPECIFIED (5) Diabetic foot ulcer Code(s): E11.621 - TYPE 2 DIABETES MELLITUS WITH FOOT ULCER; L97.509 - NON- PRESSURE CHRONIC ULCER OTH PRT UNSP FOOT W UNSP SEVERITY
[2018-01-08] MEDS ORDERED: BUPIVACAINE HCL/PF 0.5% (5MG/ML) 10 ML VIAL ONE (14:32)
--- NOTE | 2018-01-08 14:32 | PN ---
Progress Note, Physician History of Present Illness: Pt seen and examined at bedside. He is awake and alert. He feels that his finger is worse today. - Current Medication List Current Medications: Active Medications Acetaminophen (Tylenol -) 650 mg PO Q6H PRN PRN Reason: pain 4-6 Al Hydroxide/Mg Hydroxide (Mylanta Oral Suspension -) 30 ml PO Q6H PRN PRN Reason: INDIGESTION Last Admin: 01/08/18 10:26 Dose: 30 ml Clopidogrel Bisulfate (Plavix -) 75 mg PO DAILY [facility] Last Admin: 01/08/18 10:25 Dose: 75 mg Heparin Sodium (Porcine) (Heparin -) 5,000 unit SQ TID [facility] Last Admin: 01/08/18 13:42 Dose: 5,000 unit Insulin Aspart (Novolog Vial Sliding Scale -) 1 vial SQ ACHS LINDA PRN Reason: Protocol Last Admin: 01/08/18 11:58 Dose: 4 units Pregabalin (Lyrica -) 100 mg PO BID [facility] Last Admin: 01/08/18 10:25 Dose: 100 mg Zolpidem Tartrate (Ambien -) 5 mg PO HS PRN PRN Reason: INSOMNIA Last Admin: 01/07/18 21:46 Dose: 5 mg - Objective Vital Signs: Vital Signs Temperature 99.2 F 01/08/18 10:21 Pulse Rate 72 01/08/18 10:21 Respiratory Rate 24 01/08/18 10:21 Blood Pressure 154/70 01/08/18 10:21 O2 Sat by Pulse Oximetry (%) 98 01/07/18 20:58 Constitutional: Yes: Calm Eyes: Yes: Conjunctiva Clear HENT: Yes: Atraumatic Cardiovascular: Yes: S1, S2 Respiratory: Yes: CTA Bilaterally Gastrointestinal: Yes: Soft Genitourinary: Yes: WNL Musculoskeletal: Yes: WNL Edema: Yes Neurological: Yes: Oriented Psychiatric: Yes: Oriented Labs: CBC, BMP 01/08/18 06:30 01/07/18 16:00 Problem List - Problems (1) Cellulitis Code(s): L03.90 - CELLULITIS, UNSPECIFIED Qualifiers: Qualified Code(s): L03.90 - Cellulitis, unspecified (2) Renal insufficiency Code(s): N28.9 - DISORDER OF KIDNEY AND URETER, UNSPECIFIED (3) Diabetic foot ulcer Code(s): E11.621 - TYPE 2 DIABETES MELLITUS WITH FOOT ULCER; L97.509 - NON- PRESSURE CHRONIC ULCER OTH PRT UNSP FOOT W UNSP SEVERITY Assessment/Plan Current Medications Generic Name Dose Route Start Last Admin Trade Name Freq PRN Reason Stop Dose Admin Acetaminophen 650 mg 01/06/18 22:57 Tylenol - PO Q6H PRN pain 4-6 Al Hydroxide/Mg Hydroxide 30 ml 01/07/18 17:02 01/08/18 10:26 Mylanta Oral Suspension - PO 30 ml Q6H PRN Administration INDIGESTION Clopidogrel Bisulfate 75 mg 01/07/18 10:00 01/08/18 10:25 Plavix - PO 75 mg DAILY LINDA Administration Heparin Sodium (Porcine) 5,000 unit 01/07/18 14:00 01/08/18 13:42 Heparin - SQ 5,000 unit TID LINDA Administration Insulin Aspart 1 vial 01/07/18 16:30 01/08/18 11:58 Novolog Vial Sliding Scale - SQ 4 units ACHS LINDA Administration Protocol Pregabalin 100 mg 01/06/18 22:00 01/08/18 10:25 Lyrica - PO 100 mg BID LINDA Administration Zolpidem Tartrate 5 mg 01/06/18 21:38 01/07/18 21:46 Ambien - PO 5 mg HS PRN Administration INSOMNIA Laboratory Tests 01/07/18 19:00 Protein/Creatinin Ratio 4.0 Impression 1. MALIA 2. cellulitis 3. DM 4. PVD 5. insomnia 6. anemia Plan - renal function is improving - pt has about 4 grams of protein in his urine - cont with fluids - surgery eval for possible abscess - cont abx - monitor vanco levels - check bmp - pt will need a full renal workup and will need outpt follow up Dr Daniel
--- NOTE | 2018-01-08 14:33 | PN ---
Progress Note (short form) - Note Progress Note: ID Getting Vancomycin dosing Seen by general surgery and vascular Selected Entries 01/08/18 10:21 Temperature 99.2 F Pulse Rate 72 Respiratory 24 Rate Blood Pressure 154/70 Right second finger swelling with erythema ? fluctuance dry necrotic eschar Laboratory Tests 01/08/18 06:30 Random Vancomycin 12.155 Microbiology 01/06/18 13:00 Wound Gram Stain - Final 01/06/18 13:00 Wound Wound Culture - Preliminary Mr S Aureus Beta Hemolytic Strep Assessment Abscess with cellulitis MRSA strep Plan Redose Vanco x 1- 1 gram and going to OR today Lennox MOHAN
[2018-01-08] MEDS ORDERED: MIDAZOLAM HCL 2 MG/2 ML SINGLE DOSE VIAL ONE ×3 (14:34→17:44)
[2018-01-08] MEDS: VANCOMYCIN 1,000 MG in DEXTROSE 5%-WATER - 250 ML IVPB ONE ×2 (15:30→16:49)
[2018-01-08] MEDS ORDERED: ONDANSETRON 4 MG/2 ML VIAL IVPUSH PRN (17:22)
--- NOTE | 2018-01-08 17:32 | OP ---
Operative Note - Note: Operative Date: 01/08/18 Pre-Operative Diagnosis: right index finger abscess Operation: incsion and drainge of right index finger abscess Findings: right index finger abscess dorsally over proximal phalanx, thick yellow/ white pus ~4ml Post-Operative Diagnosis: Same as Pre-op Surgeon: Joaquín Mcleod Anesthesiologist/ADVERTISING SALES AGENT: Gregorio Mathews Anesthesia: Local (scalene block), MAC Specimens Removed: tissue culture and culture swab Estimated Blood Loss (mls): 2 Instrument used (Debridements only): scalple and scissors Drains & Tubes with Location: none Fluid Volume Replaced (mls): 400 (crystalloid ) Operative Report Dictated: Yes
[2018-01-08] MEDS ORDERED: PROPOFOL 20 ML ONE (17:47)
[2018-01-08] MEDS ORDERED: LIDOCAINE HCL/PF 2% SDV 5ML VIAL ONE (17:47)
[2018-01-08] MEDS ORDERED: SUCCINYLCHOLINE CHLORIDE 200 MG/10 ML VIAL ONE (17:55)
[2018-01-08] MEDS ORDERED: ACETAMINOPHEN 325 MG TABLET (FP) PO PRN (18:49)
[2018-01-08] MEDS ORDERED: MAG HYDROX/AL HYDROX/SIMETH 30 ML UNIT-DOSE CUP PO PRN (18:49)
[2018-01-08] MEDS ORDERED: DEXTROSE 5%-0.45% SALINE 1,000 ML IV SCH (20:45)
[2018-01-08] MEDS: ZOLPIDEM TARTRATE 5 MG TABLET PO PRN (22:07)
--- NOTE | 2018-01-08 22:31 | PN ---
Progress Note, Physician History of Present Illness: Pt went to OR today - Current Medication List Current Medications: Active Medications Acetaminophen (Tylenol -) 650 mg PO Q6H PRN PRN Reason: pain 4-6 Al Hydroxide/Mg Hydroxide (Mylanta Oral Suspension -) 30 ml PO Q6H PRN PRN Reason: INDIGESTION Clopidogrel Bisulfate (Plavix -) 75 mg PO DAILY [facility] Heparin Sodium (Porcine) (Heparin -) 5,000 unit SQ TID [facility] Last Admin: 01/08/18 22:07 Dose: 5,000 unit Dextrose/Sodium Chloride (D5-1/2ns -) 1,000 mls @ 75 mls/hr IV ASDIR [facility] Last Admin: 01/08/18 21:30 Dose: 75 mls/hr Insulin Aspart (Novolog Vial Sliding Scale -) 1 vial SQ ACHS [facility] PRN Reason: Protocol Pregabalin (Lyrica -) 100 mg PO BID [facility] Last Admin: 01/08/18 22:07 Dose: 100 mg Zolpidem Tartrate (Ambien -) 5 mg PO HS PRN PRN Reason: INSOMNIA Last Admin: 01/08/18 22:07 Dose: 5 mg - Objective Vital Signs: Vital Signs Temperature 98.1 F 01/08/18 20:00 Pulse Rate 70 01/08/18 20:00 Respiratory Rate 18 01/08/18 20:00 Blood Pressure 153/71 01/08/18 20:00 O2 Sat by Pulse Oximetry (%) 98 01/08/18 20:00 HENT: Yes: WNL Neck: Yes: WNL, Supple Cardiovascular: Yes: WNL, Regular Rate and Rhythm Respiratory: Yes: WNL, Regular, CTA Bilaterally Gastrointestinal: Yes: WNL, Normal Bowel Sounds, Soft Extremities: Yes: Other (RT index finger in dressing) Labs: CBC, BMP 01/08/18 06:30 01/07/18 16:00 Problem List - Problems (1) Abscess of finger Assessment/Plan: S/P I&D of finger Cont wound care Antibxs as per ID Code(s): L02.519 - CUTANEOUS ABSCESS OF UNSPECIFIED HAND (2) Renal insufficiency Assessment/Plan: Cont IV hydration Monitor labs As per renal Code(s): N28.9 - DISORDER OF KIDNEY AND URETER, UNSPECIFIED (3) Cellulitis Assessment/Plan: Cont IV antibxs Code(s): L03.90 - CELLULITIS, UNSPECIFIED Qualifiers: Site of cellulitis: unspecified site Qualified Code(s): L03.90 - Cellulitis , unspecified (4) Diabetes mellitus Assessment/Plan: Cont sliding scale w/ coverage Code(s): E11.9 - TYPE 2 DIABETES MELLITUS WITHOUT COMPLICATIONS
[2018-01-09] MEDS: INSULIN SLIDING SCALE (NOVOLOG) 1 VIAL SQ SCH ×5 (00:16→22:55)
[2018-01-09] MEDS: DOCUSATE SODIUM 100 MG CAPSULE (FP) PO SCH ×4 (01:51→21:37)
[2018-01-09] MEDS: SODIUM CHLORIDE 0.45% 1,000 ML IV SCH (01:51)
[2018-01-09] MEDS: HEPARIN NA (PORCINE) 5,000 UNITS/ML 1ML VIAL SQ SCH ×3 (05:38→21:37)
[2018-01-09 06:06] LABS: TRANSFERRIN 188 mg/dL (200-370)
[2018-01-09 08:07] LABS: SERUM IRON SATURATION 6 % (15-55); TOTAL IRON BINDING CAPACITY 232 ug/dL (250-450); UIBC 217 ug/dL (111-343)
[2018-01-09 08:33] LABS: BASO % 0.7 % (0-2.0); EOS % 3.3 % (0-4.5); HEMOGLOBIN 8.9 GM/dL (11.7-16.9); LYMPH % 16.9 % (8-40); MCH 25.4 pg (25.7-33.7); MEAN CELL VOLUME 77.2 fl (80-96); MEAN PLT VOLUME 9.5 fl (7.5-11.1); MONO % 8.1 % (3.8-10.2); PLATELET COUNT 245 K/MM3 (134-434); RBC 3.49 M/mm3 (4.00-5.60); RDW 14.7 % (11.9-15.9); WHITE BLOOD COUNT 6.4 K/mm3 (4.0-10.0)
[2018-01-09 08:56] LABS: CHLORIDE 108 mmol/L (98-107); SODIUM 141 mmol/L (136-145)
[2018-01-09 09:04] LABS: ALBUMIN 2.3 g/dl (3.4-5.0); ALK PHOS 54 U/L (45-117); ANION GAP 9 (8-16); BILIRUBIN,TOTAL 0.5 mg/dL (0.2-1.0); BLOOD UREA NITROGEN 28 mg/dL (7-18); CALCIUM 7.7 mg/dL (8.5-10.1); CO2 24 mmol/L (21-32); CREATININE 1.9 mg/dL (0.7-1.3); GLUCOSE,RANDOM 162 mg/dL (74-106); SGOT/AST 11 U/L (15-37); SGPT/ALT 8 U/L (12-78); TOT PROT 5.8 g/dl (6.4-8.2)
[2018-01-09] MEDS ORDERED: IRON SUCROSE INJECTION 200 MG in SODIUM CHLORIDE 90 ML IVPB ONE (09:30)
[2018-01-09] MEDS: CLOPIDOGREL BISULFATE 75 MG TABLET (FP) PO SCH (09:44)
[2018-01-09] MEDS: PREGABALIN 100 MG CAPSULE PO SCH ×2 (09:45→21:36)
[2018-01-09] MEDS: ASCORBIC ACID 500 MG TABLET (FP) PO SCH (09:45)
[2018-01-09] MEDS ORDERED: DOCUSATE SODIUM 100 MG CAPSULE (FP) PO SCH (10:00)
--- NOTE | 2018-01-09 10:34 | PN ---
Physical Exam: SUBJECTIVE: Patient seen and examined. He feels well, no complaints, no pain, wants to go home OBJECTIVE: Vital Signs Period Temp Pulse Resp BP Sys/Snow Pulse Ox Last 24 Hr 98 F-99.3 F 63-79 16-20 124-184/54-80 95-100 PE Neuro: alert, awake, cn 2-12intact Pulm: CTA anteriorly CV: s1 s2 rrr no mrg Abd: s nt nd + bs Ext: L Foot dressing intact, R hand dressing in tact, no pain Laboratory Results - last 24 hr 01/08/18 01/08/18 01/08/18 06:30 11:56 22:10 WBC RBC Hgb Hct MCV MCH MCHC RDW Plt Count MPV Neutrophils % Lymphocytes % Monocytes % Eosinophils % Basophils % Sodium Potassium Chloride Carbon Dioxide Anion Gap BUN Creatinine Creat Clearance w eGFR POC Glucometer 209 495 Random Glucose Calcium Iron 15 L TIBC 232 L Iron Saturation 6 L Transferrin 188 L Total Bilirubin AST ALT Alkaline Phosphatase Total Protein Albumin 01/09/18 01/09/18 07:30 07:30 WBC 6.4 RBC 3.49 L Hgb 8.9 L Hct 27.0 L MCV 77.2 L MCH 25.4 L MCHC 33.0 RDW 14.7 Plt Count 245 MPV 9.5 Neutrophils % 71.0 Lymphocytes % 16.9 Monocytes % 8.1 Eosinophils % 3.3 Basophils % 0.7 Sodium 141 Potassium 4.0 Chloride 108 H Carbon Dioxide 24 Anion Gap 9 BUN 28 H D Creatinine 1.9 H Creat Clearance w eGFR 35.43 POC Glucometer Random Glucose 162 H D Calcium 7.7 L Iron TIBC Iron Saturation Transferrin Total Bilirubin 0.5 D AST 11 L ALT 8 L D Alkaline Phosphatase 54 Total Protein 5.8 L Albumin 2.3 L D Active Medications Generic Name Dose Route Start Last Admin Trade Name Freq PRN Reason Stop Dose Admin Acetaminophen 650 mg 01/08/18 18:49 Tylenol - PO Q6H PRN pain 4-6 Al Hydroxide/Mg Hydroxide 30 ml 01/08/18 18:49 01/09/18 09:44 Mylanta Oral Suspension - PO 30 ml Q6H PRN Administration INDIGESTION Ascorbic Acid 500 mg 01/09/18 10:00 01/09/18 09:45 Vitamin C - PO 500 mg DAILY [facility] Administration Clopidogrel Bisulfate 75 mg 01/09/18 10:00 01/09/18 09:44 Plavix - PO 75 mg DAILY [facility] Administration Docusate Sodium 100 mg 01/09/18 01:00 01/09/18 05:38 Colace - PO 100 mg TID [facility] Administration Ferrous Sulfate 325 mg 01/09/18 12:00 Feosol - PO TIDCM [facility] Heparin Sodium (Porcine) 5,000 unit 01/08/18 22:00 01/09/18 05:38 Heparin - SQ 5,000 unit TID [facility] Administration Sodium Chloride 1,000 mls @ 75 mls/hr 01/09/18 01:00 01/09/18 01:51 1/2 Normal Saline IV 75 mls/hr ASDIR [facility] Administration Insulin Aspart 1 vial 01/08/18 22:00 01/09/18 06:01 Novolog Vial Sliding Scale - SQ 2 units ACHS [facility] Administration Protocol Pregabalin 100 mg 01/08/18 22:00 01/09/18 09:45 Lyrica - PO 100 mg BID [facility] Administration Zolpidem Tartrate 5 mg 01/08/18 18:49 01/08/18 22:07 Ambien - PO 5 mg HS PRN Administration INSOMNIA Microbiology 01/06/18 13:00 Wound Gram Stain - Final 01/06/18 13:00 Wound Wound Culture - Final Mr S Aureus Streptococcus Pyogenes Grp A 01/08/18 19:45 Finger - Right Index Finger Wound Culture - Preliminary Assessment: 67 year old male with pmhx quadruple bypass, leg stent (on Plavix), CVA, chronic wound to left heal with a recent graft by Dr. Garcia admitted with cellulitis to R 2nd finger. Plan: 1. R hand 2nd digit cellulitis - s/p I&D R finger abscess01/08 - Daily dressing changes per Dr. Mcleod - Wound cx presumptive MRSA, strep - Vanco dosing daily per levels - Goal 15 - ESR/CRP 2. DM II - ISS, BGM ACHS - Pt has own insulin pen, NF here 3. s/p leg stent - Continue plavix 4. Diabetic Neuropathy - Lyrica 100mg BID 5. MALIA on ?CKD - CKD likely DM related - Cr improving - Will need continued outpt work up, pt aware - Continue 1/2 75cc/hr - Renal seeing 6. Iron deficiency anemia - Iron studies noted - Venofer 200mg x1 now - Start Ferrous sulfate TID - Vit C - Colace Visit type - Emergency Visit Emergency Visit: Yes ED Registration Date: 01/08/18 Care time: The patient presented to the Emergency Department on the above date and was hospitalized for further evaluation of their emergent condition. - New Patient This patient is new to me today: No - Critical Care Critical Care patient: No
--- NOTE | 2018-01-09 11:05 | PN ---
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 Garcia. Patient was sent to the ED today after being seen at wound care for pain and swelling of his right hand , 2nd finger. stable overnight, afebrile Tmax 99.3 - Current Medication List Current Medications: Active Medications Acetaminophen (Tylenol -) 650 mg PO Q6H PRN PRN Reason: pain 4-6 Al Hydroxide/Mg Hydroxide (Mylanta Oral Suspension -) 30 ml PO Q6H PRN PRN Reason: INDIGESTION Last Admin: 01/09/18 09:44 Dose: 30 ml Amlodipine Besylate (Norvasc -) 5 mg PO DAILY [facility] Ascorbic Acid (Vitamin C -) 500 mg PO DAILY [facility] Last Admin: 01/09/18 09:45 Dose: 500 mg Clopidogrel Bisulfate (Plavix -) 75 mg PO DAILY [facility] Last Admin: 01/09/18 09:44 Dose: 75 mg Docusate Sodium (Colace -) 100 mg PO TID [facility] Last Admin: 01/09/18 05:38 Dose: 100 mg Ferrous Sulfate (Feosol -) 325 mg PO TIDCM [facility] Heparin Sodium (Porcine) (Heparin -) 5,000 unit SQ TID [facility] Last Admin: 01/09/18 05:38 Dose: 5,000 unit Sodium Chloride (1/2 Normal Saline) 1,000 mls @ 75 mls/hr IV ASDIR [facility] Last Admin: 01/09/18 01:51 Dose: 75 mls/hr Insulin Aspart (Novolog Vial Sliding Scale -) 1 vial SQ ACHS [facility] PRN Reason: Protocol Last Admin: 01/09/18 06:01 Dose: 2 units Pregabalin (Lyrica -) 100 mg PO BID [facility] Last Admin: 01/09/18 09:45 Dose: 100 mg Zolpidem Tartrate (Ambien -) 5 mg PO HS PRN PRN Reason: INSOMNIA Last Admin: 01/08/18 22:07 Dose: 5 mg - Objective Vital Signs: Vital Signs Temperature 98 F 01/09/18 09:40 Pulse Rate 76 01/09/18 09:40 Respiratory Rate 20 01/09/18 09:40 Blood Pressure 157/63 01/09/18 09:40 O2 Sat by Pulse Oximetry (%) 98 01/08/18 21:00 Vital Signs Period Temp Pulse Resp BP Sys/Snow Pulse Ox Last 24 Hr 98 F-99.3 F 63-79 16-20 124-184/54-80 95-100 Constitutional: Yes: No Distress, Calm Eyes: Yes: Conjunctiva Clear, EOM Intact HENT: Yes: Atraumatic, Normocephalic Neck: Yes: Supple, Trachea Midline Cardiovascular: Yes: Regular Rate and Rhythm, S1, S2 Respiratory: Yes: Regular, CTA Bilaterally Gastrointestinal: Yes: Normal Bowel Sounds, Soft Genitourinary: No: CVA Tenderness - Left, CVA Tenderness - Right Extremities: Yes: Other (Wound Measurement: Dorsum of Right Index finger, [id number] with extensor tendon at the base Dressing Instrucstion: 1/4" iodoform packing, 4X4 gauze and kerlex with tape). No: Cool, Cyanosis Edema: No Peripheral Pulses WNL: No Neurological: Yes: Alert, Oriented Psychiatric: Yes: Alert, Oriented Labs: CBC, BMP 01/09/18 07:30 01/09/18 07:30 Problem List - Problems (1) Abscess of finger Assessment/Plan: 67 yo male MMP including DM with right index finger abscess POD#1 s/p I&D and debridement of right index finger abscess Daily wound care by VNS or at wound care Wound Measurement: Dorsum of Right Index finger, [id number] with extensor tendon at the base Dressing Instrucstion: 1/4" iodoform packing, 4X4 gauze and kerlex with tape Right Arm elevation encourage ambulation and Incentive spirometry Adequate analgesia Code(s): L02.519 - CUTANEOUS ABSCESS OF UNSPECIFIED HAND (2) PVD (peripheral vascular disease) Code(s): I73.9 - PERIPHERAL VASCULAR DISEASE, UNSPECIFIED (3) Cellulitis Code(s): L03.90 - CELLULITIS, UNSPECIFIED Qualifiers: Site of cellulitis: unspecified site Qualified Code(s): L03.90 - Cellulitis , unspecified (4) Renal insufficiency Code(s): N28.9 - DISORDER OF KIDNEY AND URETER, UNSPECIFIED (5) Diabetic foot ulcer Code(s): E11.621 - TYPE 2 DIABETES MELLITUS WITH FOOT ULCER; L97.509 - NON- PRESSURE CHRONIC ULCER OTH PRT UNSP FOOT W UNSP SEVERITY
[2018-01-09] MEDS ORDERED: INSULIN (NOVOLOG) ASPART 100 UNITS/ML 10ML VIAL ONE ×4 (11:40→19:36)
[2018-01-09] MEDS: amLODIPine BESYLATE 5 MG TABLET (FP) PO SCH (11:51)
--- NOTE | 2018-01-09 12:05 | PN ---
Progress Note (short form) - Note Progress Note: ANESTHESIOLOGY POST-OP CHECK 67M s/p right hand I&D under peripheral nerve block and sedation. No acute complaints. Denies pain, N/V. Vital Signs Temperature 98 F 01/09/18 09:40 Pulse Rate 71 01/09/18 11:50 Respiratory Rate 20 01/09/18 11:50 Blood Pressure 169/77 01/09/18 11:50 O2 Sat by Pulse Oximetry (%) 98 01/08/18 21:00 Active Medications Acetaminophen (Tylenol -) 650 mg PO Q6H PRN PRN Reason: pain 4-6 Al Hydroxide/Mg Hydroxide (Mylanta Oral Suspension -) 30 ml PO Q6H PRN PRN Reason: INDIGESTION Last Admin: 01/09/18 09:44 Dose: 30 ml Amlodipine Besylate (Norvasc -) 5 mg PO DAILY [facility] Last Admin: 01/09/18 11:51 Dose: 5 mg Ascorbic Acid (Vitamin C -) 500 mg PO DAILY [facility] Last Admin: 01/09/18 09:45 Dose: 500 mg Clopidogrel Bisulfate (Plavix -) 75 mg PO DAILY [facility] Last Admin: 01/09/18 09:44 Dose: 75 mg Docusate Sodium (Colace -) 100 mg PO TID [facility] Last Admin: 01/09/18 05:38 Dose: 100 mg Ferrous Sulfate (Feosol -) 325 mg PO TIDCM [facility] Heparin Sodium (Porcine) (Heparin -) 5,000 unit SQ TID [facility] Last Admin: 01/09/18 05:38 Dose: 5,000 unit Sodium Chloride (1/2 Normal Saline) 1,000 mls @ 75 mls/hr IV ASDIR [facility] Last Admin: 01/09/18 01:51 Dose: 75 mls/hr Insulin Aspart (Novolog Vial Sliding Scale -) 1 vial SQ ACHS [facility] PRN Reason: Protocol Last Admin: 01/09/18 11:51 Dose: 6 units Pregabalin (Lyrica -) 100 mg PO BID [facility] Last Admin: 01/09/18 09:45 Dose: 100 mg Zolpidem Tartrate (Ambien -) 5 mg PO HS PRN PRN Reason: INSOMNIA Last Admin: 01/08/18 22:07 Dose: 5 mg Gen: Awake, alert Ext: No motor or sensory deficits No apparent anesthesia complications. Pain well controlled. continue management as per primary team.
[2018-01-09] MEDS: FERROUS SO4 325 MG TABLET (FP) PO SCH ×2 (12:13→17:43)
--- NOTE | 2018-01-09 13:10 | PN ---
Progress Note (short form) - Note Progress Note: s/p drainage of finger abscess yesterday by Dr Mcleod hand is wrapped he feels well Vital Signs Period Temp Pulse Resp BP Sys/Snow Pulse Ox Last 24 Hr 98 F-99.3 F 63-79 16-20 124-184/54-80 93-100 cor-rrr lungs clear abd soft,nt ext hand is wrapped CBC, BMP 01/09/18 07:30 01/09/18 07:30 Microbiology 01/06/18 13:00 Wound Gram Stain - Final 01/06/18 13:00 Wound Wound Culture - Final Mr S Aureus Streptococcus Pyogenes Grp A 01/08/18 19:45 Finger - Right Index Finger Wound Culture - Preliminary a/p s/p drainage of finger abscess-MRSA, Group A strep DM renal insufficiency- improving vancomycin daily (vanco levels renewed) check esr/crp- will d/w surgery f/u cultures Problem List - Problems (1) Cellulitis Code(s): L03.90 - CELLULITIS, UNSPECIFIED Qualifiers: Site of cellulitis: unspecified site Qualified Code(s): L03.90 - Cellulitis , unspecified (2) Abscess of finger of right hand Code(s): L02.511 - CUTANEOUS ABSCESS OF RIGHT HAND (3) Renal insufficiency Code(s): N28.9 - DISORDER OF KIDNEY AND URETER, UNSPECIFIED
[2018-01-09] MEDS ORDERED: VANCOMYCIN 1 GRAM (PRE-DOCKED) 1,000 MG/250 ML BAG IVPB SCH (13:15)
[2018-01-09] MEDS: CEFTRIAXONE 1 G/50 ML PREMIX 50 ML IVPB SCH (14:42)
--- NOTE | 2018-01-09 15:16 | PN ---
Progress Note, Physician History of Present Illness: Pt seen and examined at bedside. He is awake and alert. He says that he is eager to go home. - Current Medication List Current Medications: Active Medications Acetaminophen (Tylenol -) 650 mg PO Q6H PRN PRN Reason: pain 4-6 Al Hydroxide/Mg Hydroxide (Mylanta Oral Suspension -) 30 ml PO Q6H PRN PRN Reason: INDIGESTION Last Admin: 01/09/18 09:44 Dose: 30 ml Amlodipine Besylate (Norvasc -) 5 mg PO DAILY [facility] Last Admin: 01/09/18 11:51 Dose: 5 mg Ascorbic Acid (Vitamin C -) 500 mg PO DAILY [facility] Last Admin: 01/09/18 09:45 Dose: 500 mg Clopidogrel Bisulfate (Plavix -) 75 mg PO DAILY [facility] Last Admin: 01/09/18 09:44 Dose: 75 mg Docusate Sodium (Colace -) 100 mg PO TID [facility] Last Admin: 01/09/18 14:39 Dose: 100 mg Ferrous Sulfate (Feosol -) 325 mg PO TIDCM [facility] Last Admin: 01/09/18 12:13 Dose: 325 mg Heparin Sodium (Porcine) (Heparin -) 5,000 unit SQ TID [facility] Last Admin: 01/09/18 14:39 Dose: 5,000 unit Sodium Chloride (1/2 Normal Saline) 1,000 mls @ 75 mls/hr IV ASDIR [facility] Last Admin: 01/09/18 01:51 Dose: 75 mls/hr Vancomycin HCl 1,000 mg/ (Dextrose) 250 mls @ 250 mls/hr IVPB DAILY@1400 [facility] CEFTRIAXONE 1 G/50 ML PREMIX (Ceftriaxone 1 Gm-D5w Bag) 50 mls @ 100 mls/hr IVPB DAILY [facility] Last Admin: 01/09/18 14:42 Dose: 100 mls/hr Insulin Aspart (Novolog Vial Sliding Scale -) 1 vial SQ ACHS [facility] PRN Reason: Protocol Last Admin: 01/09/18 11:51 Dose: 6 units Pregabalin (Lyrica -) 100 mg PO BID [facility] Last Admin: 01/09/18 09:45 Dose: 100 mg Zolpidem Tartrate (Ambien -) 5 mg PO HS PRN PRN Reason: INSOMNIA Last Admin: 01/08/18 22:07 Dose: 5 mg - Objective Vital Signs: Vital Signs Temperature 98 F 01/09/18 09:40 Pulse Rate 71 01/09/18 11:50 Respiratory Rate 20 01/09/18 11:50 Blood Pressure 169/77 01/09/18 11:50 O2 Sat by Pulse Oximetry (%) 93 L 01/09/18 11:05 Constitutional: Yes: Calm Eyes: Yes: Conjunctiva Clear HENT: Yes: Atraumatic Cardiovascular: Yes: S1, S2 Respiratory: Yes: CTA Bilaterally Gastrointestinal: Yes: Normal Bowel Sounds, Soft Genitourinary: Yes: WNL Musculoskeletal: Yes: WNL Edema: Yes Neurological: Yes: Oriented Psychiatric: Yes: Oriented Labs: CBC, BMP 01/09/18 07:30 01/09/18 07:30 Problem List - Problems (1) Cellulitis Code(s): L03.90 - CELLULITIS, UNSPECIFIED Qualifiers: Site of cellulitis: unspecified site Qualified Code(s): L03.90 - Cellulitis , unspecified (2) Renal insufficiency Code(s): N28.9 - DISORDER OF KIDNEY AND URETER, UNSPECIFIED (3) Diabetic foot ulcer Code(s): E11.621 - TYPE 2 DIABETES MELLITUS WITH FOOT ULCER; L97.509 - NON- PRESSURE CHRONIC ULCER OTH PRT UNSP FOOT W UNSP SEVERITY Assessment/Plan Current Medications Generic Name Dose Route Start Last Admin Trade Name Freq PRN Reason Stop Dose Admin Acetaminophen 650 mg 01/08/18 18:49 Tylenol - PO Q6H PRN pain 4-6 Al Hydroxide/Mg Hydroxide 30 ml 01/08/18 18:49 01/09/18 09:44 Mylanta Oral Suspension - PO 30 ml Q6H PRN Administration INDIGESTION Amlodipine Besylate 5 mg 01/09/18 10:45 01/09/18 11:51 Norvasc - PO 5 mg DAILY [facility] Administration Ascorbic Acid 500 mg 01/09/18 10:00 01/09/18 09:45 Vitamin C - PO 500 mg DAILY [facility] Administration Clopidogrel Bisulfate 75 mg 01/09/18 10:00 01/09/18 09:44 Plavix - PO 75 mg DAILY [facility] Administration Docusate Sodium 100 mg 01/09/18 01:00 01/09/18 14:39 Colace - PO 100 mg TID [facility] Administration Ferrous Sulfate 325 mg 01/09/18 12:00 01/09/18 12:13 Feosol - PO 325 mg TIDCM [facility] Administration Heparin Sodium (Porcine) 5,000 unit 01/08/18 22:00 01/09/18 14:39 Heparin - SQ 5,000 unit TID [facility] Administration Sodium Chloride 1,000 mls @ 75 mls/hr 01/09/18 01:00 01/09/18 01:51 1/2 Normal Saline IV 75 mls/hr ASDIR [facility] Administration Vancomycin HCl 1,000 mg/ 250 mls @ 250 mls/hr 01/09/18 14:00 Dextrose IVPB DAILY@1400 [facility] CEFTRIAXONE 1 G/50 ML PREMIX 50 mls @ 100 mls/hr 01/09/18 14:00 01/09/18 14: 42 Ceftriaxone 1 Gm-D5w Bag IVPB 100 mls/hr DAILY [facility] Administration Insulin Aspart 1 vial 01/08/18 22:00 01/09/18 11:51 Novolog Vial Sliding Scale - SQ 6 units ACHS [facility] Administration Protocol Pregabalin 100 mg 01/08/18 22:00 01/09/18 09:45 Lyrica - PO 100 mg BID [facility] Administration Zolpidem Tartrate 5 mg 01/08/18 18:49 01/08/18 22:07 Ambien - PO 5 mg HS PRN Administration INSOMNIA Impression 1. MALIA 2. cellulitis 3. DM 4. PVD 5. insomnia 6. anemia 7. CKD Plan - renal function is improving - cont with hypotonic saline - repeat labs in am - will need renal workup after discharge - pt was s/p I and D right hand index finger abscess - cont abx - monitor vanco levels Dr Daniel
[2018-01-09] MEDS: VANCOMYCIN 1,000 MG in DEXTROSE 5%-WATER - 250 ML IVPB SCH (15:36)
[2018-01-09] MEDS ORDERED: BISACODYL 10 MG SUPP.RECT PR ONE (18:07)
[2018-01-09] MEDS ORDERED: MAGNESIUM HYDROX 2400MG/30ML ORAL SUSPENSION 30 ML CUP PO ONE (19:00)
[2018-01-09] MEDS ORDERED: PT OWN MED DRAWER 7, Y5N ONE (19:35)
[2018-01-09] MEDS: ZOLPIDEM TARTRATE 5 MG TABLET PO PRN (21:57)
[2018-01-09] MEDS: INSULIN DETEMIR 100 UNITS/ML MDV SQ SCH (22:53)
[2018-01-10] MEDS: HEPARIN NA (PORCINE) 5,000 UNITS/ML 1ML VIAL SQ SCH ×3 (06:25→22:24)
[2018-01-10] MEDS: DOCUSATE SODIUM 100 MG CAPSULE (FP) PO SCH ×3 (06:28→22:30)
[2018-01-10] MEDS: SODIUM CHLORIDE 0.45% 1,000 ML IV SCH (06:50)
[2018-01-10] MEDS: INSULIN SLIDING SCALE (NOVOLOG) 1 VIAL SQ SCH ×5 (06:54→22:25)
[2018-01-10 08:30] LABS: ANION GAP 11 (8-16); BLOOD UREA NITROGEN 26 mg/dL (7-18); CHLORIDE 109 mmol/L (98-107); CO2 23 mmol/L (21-32); GLUCOSE,RANDOM 126 mg/dL (74-106); POTASSIUM 3.9 mmol/L (3.5-5.1); SODIUM 143 mmol/L (136-145)
[2018-01-10 08:33] LABS: CREATININE 1.8 mg/dL (0.7-1.3)
[2018-01-10] MEDS: FERROUS SO4 325 MG TABLET (FP) PO SCH ×3 (09:11→17:11)
--- NOTE | 2018-01-10 09:53 | PN ---
Progress Note (short form) - Note Progress Note: s/p drainage of finger abscess by Dr Mcleod-d/w Dr Mcleod- finger is improving hand is wrapped he feels well Vital Signs Period Temp Pulse Resp BP Sys/Snow Pulse Ox Last 24 Hr 97.9 F-99.2 F 63-74 16-20 130-169/55-79 93-93 cor-rrr lungs clear abd soft,nt ext hand dressing intact CBC, BMP 01/09/18 07:30 01/10/18 07:50 Microbiology 01/08/18 19:45 Finger - Right Index Finger Gram Stain - Final 01/06/18 13:00 Wound Gram Stain - Final 01/06/18 13:00 Wound Wound Culture - Final Mr S Aureus Streptococcus Pyogenes Grp A a/p s/p drainage of finger abscess-MRSA, Group A strep DM renal insufficiency- improving vancomycin daily (vanco levels reviewed- ordered for tomorrow), rocephin plan iv antibioitcs at least through the weekend, po options limited given renal insuff and sensitivities of the MRSA patient is aware Problem List - Problems (1) Cellulitis Code(s): L03.90 - CELLULITIS, UNSPECIFIED Qualifiers: Site of cellulitis: unspecified site Qualified Code(s): L03.90 - Cellulitis , unspecified (2) Abscess of finger of right hand Code(s): L02.511 - CUTANEOUS ABSCESS OF RIGHT HAND (3) Renal insufficiency Code(s): N28.9 - DISORDER OF KIDNEY AND URETER, UNSPECIFIED
[2018-01-10] MEDS ORDERED: PT OWN MED DRAWER 7, Y5N ONE ×3 (10:39→18:34)
[2018-01-10] MEDS: amLODIPine BESYLATE 5 MG TABLET (FP) PO SCH (10:55)
[2018-01-10] MEDS: CEFTRIAXONE 1 G/50 ML PREMIX 50 ML IVPB SCH (10:55)
[2018-01-10] MEDS: CLOPIDOGREL BISULFATE 75 MG TABLET (FP) PO SCH (10:55)
[2018-01-10] MEDS: PREGABALIN 100 MG CAPSULE PO SCH ×2 (10:55→22:29)
[2018-01-10] MEDS: ASCORBIC ACID 500 MG TABLET (FP) PO SCH (10:55)
[2018-01-10] MEDS ORDERED: DOCUSATE SODIUM 100 MG CAPSULE (FP) PO SCH (11:00)
[2018-01-10] MEDS ORDERED: DOCUSATE SODIUM 100 MG CAPSULE (FP) PO ONE (11:00)
--- NOTE | 2018-01-10 11:02 | OP ---
DATE OF OPERATION: 01/08/2018 PREOPERATIVE DIAGNOSIS: Right index finger abscess. POSTOPERATIVE DIAGNOSIS: Right index finger abscess. PROCEDURE: Incision and drainage, right index finger abscess. ATTENDING SURGEON: Joaquín Mcleod MD ANESTHESIOLOGIST: PIANO CASE AND BENCH ASSEMBLER: None. ANESTHESIA: Includes scalene block and MAC. SPECIMEN SENT: Culture swab, right index finger abscess and tissue culture, right index finger abscess. ESTIMATED BLOOD LOSS: 2 mL INTRAVENOUS FLUID: 400 mL crystalloid. INSTRUMENTS USED FOR DEBRIDEMENT: Scalpel and scissors. INDICATION: Patient is a 67-year-old male. He has a history of diabetes, presents with right index finger swelling, pain extending to the dorsum of the right hand for a period of 3 days, worsening. He was seen in the wound care clinic for a foot ulcer that is maintained. He was counseled regarding the need for evaluation of the index finger given the redness and swelling that ensued. He was explained the risks, benefits, and alternatives to incision, drainage, and debridement, signed informed consent, was taken for the procedure. DESCRIPTION OF PROCEDURE: Patient was brought to the operating room, placed in supine position on the operating table. With the right arm extended at 90 degrees perpendicular to the body's axis, the patient had a tourniquet placed after a scalene block was placed by Anesthesia. He had the lower extremities, bilateral SCDs were placed. He was given intravenous antibiotics. At which point, sedation was administered. Patient was provided with supplemental oxygen without incident. We then proceeded with a formal shave, prep, and drape of the right hand into a surgical field. Formal timeout was completed, identifying the operative site as the index finger which was marked. At this point, we proceeded then with surgical marking. A linear incision was scribed circumferential around the punctum that was on the dorsum of the right index finger overlying the proximal phalanx. It was incised with a 15-blade scalpel, deepened and widened through the subcutaneous tissue with a scalpel until there was a gush of thick pus. It did not appear foul smelling. It was immediately culture swabbed. At which point, we proceeded then with excising an ellipse of skin to exclude the punctum which was the likely entry for the abscess. The pus was expressed from the dorsum of the palm toward the index finger. There appeared to be a copious amount. Approximately 3 mL of kendall purulent drainage was noted. It was suctioned from the site. Additional rongeur and freer was used to identify the plane. The skin was opened a length of approximately 2 cm proximally and distally over the proximal interphalangeal joint as well as over the metacarpophalangeal joint on the dorsum to clear the pus. The extensor tendon was identified below. A rongeur and curette were used to clear the fibrinous material which was organized and appeared to be applied to the extensor complex. It was cleared until only the tenosynovium, which was clean, was remaining. The area was completely debrided using scalpel and tenotomy scissors to debride the purulent material and its pseudocapsule. It was debrided from the field and sent for tissue culture as well. The site was then irrigated with 0.5 L of saline irrigation solution. The site, once clean, was approximated with 4-0 nylon in interrupted fashion, everting skin edges with a vertical mattress close to the site of the punctum and simple interrupted flanking each of these vertical mattress sutures. This was done to ablate the space over the extensor tendon and conceal it except for a small opening where 1/4-inch Iodoform packing was installed into the site. This would allow for packing the site above the tendon until the wound could contract and close just above the extensor tendon. The skin was cleaned. Sterile dressings of absorbent gauze with web space protection were placed. The patient was then placed into a volar resting splint with care taken to pad the wrist and place the patient's hand into a position of function. Counts were correct. The patient was then placed into a sling carefully. He was awoken from his sedation and tolerated the procedure, was stable throughout the procedure, and was returned to Recovery in stable condition. MD SUNIL [id number]
[2018-01-10] MEDS ORDERED: BISACODYL 5 MG TABLET.DR (FP) PO ONE (12:00)
[2018-01-10] MEDS ORDERED: BISACODYL 10 MG SUPP.RECT RC ONE (12:00)
[2018-01-10] MEDS ORDERED: INSULIN (NOVOLOG) ASPART 100 UNITS/ML 10ML VIAL ONE ×3 (12:33→18:34)
[2018-01-10] MEDS: VANCOMYCIN 1,000 MG in DEXTROSE 5%-WATER - 250 ML IVPB SCH (14:50)
--- NOTE | 2018-01-10 15:46 | PN ---
Progress Note, Physician History of Present Illness: Pt seen and examined at bedside. He is awake and alert. He denies shortness of breath. - Current Medication List Current Medications: Active Medications Acetaminophen (Tylenol -) 650 mg PO Q6H PRN PRN Reason: pain 4-6 Al Hydroxide/Mg Hydroxide (Mylanta Oral Suspension -) 30 ml PO Q6H PRN PRN Reason: INDIGESTION Last Admin: 01/09/18 09:44 Dose: 30 ml Amlodipine Besylate (Norvasc -) 5 mg PO DAILY [facility] Last Admin: 01/10/18 10:55 Dose: 5 mg Ascorbic Acid (Vitamin C -) 500 mg PO DAILY [facility] Last Admin: 01/10/18 10:55 Dose: 500 mg Clopidogrel Bisulfate (Plavix -) 75 mg PO DAILY [facility] Last Admin: 01/10/18 10:55 Dose: 75 mg Docusate Sodium (Colace -) 100 mg PO TID [facility] Last Admin: 01/10/18 15:02 Dose: 100 mg Ferrous Sulfate (Feosol -) 325 mg PO TIDCM [facility] Last Admin: 01/10/18 12:42 Dose: 325 mg Heparin Sodium (Porcine) (Heparin -) 5,000 unit SQ TID [facility] Last Admin: 01/10/18 14:50 Dose: 5,000 unit Sodium Chloride (1/2 Normal Saline) 1,000 mls @ 75 mls/hr IV ASDIR [facility] Last Admin: 01/10/18 06:50 Dose: 75 mls/hr Vancomycin HCl 1,000 mg/ (Dextrose) 250 mls @ 250 mls/hr IVPB DAILY@1400 [facility] Last Admin: 01/10/18 14:50 Dose: 250 mls/hr CEFTRIAXONE 1 G/50 ML PREMIX (Ceftriaxone 1 Gm-D5w Bag) 50 mls @ 100 mls/hr IVPB DAILY [facility] Last Admin: 01/10/18 10:55 Dose: 100 mls/hr Insulin Aspart (Novolog Vial Sliding Scale -) 1 vial SQ ACHS [facility] PRN Reason: Protocol Last Admin: 01/10/18 12:40 Dose: 4 units Insulin Detemir (Levemir Vial) 12 units SQ HS [facility] Last Admin: 01/09/18 22:53 Dose: 12 units Pregabalin (Lyrica -) 100 mg PO BID [facility] Last Admin: 01/10/18 10:55 Dose: 100 mg Zolpidem Tartrate (Ambien -) 5 mg PO HS PRN PRN Reason: INSOMNIA Last Admin: 01/09/18 21:57 Dose: 5 mg - Objective Vital Signs: Vital Signs Temperature 97.8 F 01/10/18 15:10 Pulse Rate 70 01/10/18 15:10 Respiratory Rate 18 01/10/18 15:10 Blood Pressure 139/64 01/10/18 15:10 O2 Sat by Pulse Oximetry (%) 95 01/10/18 09:00 Constitutional: Yes: Calm Eyes: Yes: Conjunctiva Clear HENT: Yes: Atraumatic Neck: Yes: Supple Cardiovascular: Yes: S1, S2 Respiratory: Yes: CTA Bilaterally Gastrointestinal: Yes: Soft, Abdomen, Obese Genitourinary: Yes: WNL Musculoskeletal: Yes: WNL Edema: Yes Wound/Incision: Yes: Dressing Dry and Intact Neurological: Yes: Oriented Psychiatric: Yes: Oriented Labs: CBC, BMP 01/09/18 07:30 01/10/18 07:50 Problem List - Problems (1) Cellulitis Code(s): L03.90 - CELLULITIS, UNSPECIFIED Qualifiers: Site of cellulitis: unspecified site Qualified Code(s): L03.90 - Cellulitis , unspecified (2) Renal insufficiency Code(s): N28.9 - DISORDER OF KIDNEY AND URETER, UNSPECIFIED (3) Diabetic foot ulcer Code(s): E11.621 - TYPE 2 DIABETES MELLITUS WITH FOOT ULCER; L97.509 - NON- PRESSURE CHRONIC ULCER OTH PRT UNSP FOOT W UNSP SEVERITY Assessment/Plan Current Medications Generic Name Dose Route Start Last Admin Trade Name Reneq PRN Reason Stop Dose Admin Acetaminophen 650 mg 01/08/18 18:49 Tylenol - PO Q6H PRN pain 4-6 Al Hydroxide/Mg Hydroxide 30 ml 01/08/18 18:49 01/09/18 09:44 Mylanta Oral Suspension - PO 30 ml Q6H PRN Administration INDIGESTION Amlodipine Besylate 5 mg 01/09/18 10:45 01/10/18 10:55 Norvasc - PO 5 mg DAILY [facility] Administration Ascorbic Acid 500 mg 01/09/18 10:00 01/10/18 10:55 Vitamin C - PO 500 mg DAILY [facility] Administration Clopidogrel Bisulfate 75 mg 01/09/18 10:00 01/10/18 10:55 Plavix - PO 75 mg DAILY [facility] Administration Docusate Sodium 100 mg 01/09/18 01:00 01/10/18 15:02 Colace - PO 100 mg TID [facility] Administration Ferrous Sulfate 325 mg 01/09/18 12:00 01/10/18 12:42 Feosol - PO 325 mg TIDCM [facility] Administration Heparin Sodium (Porcine) 5,000 unit 01/08/18 22:00 01/10/18 14:50 Heparin - SQ 5,000 unit TID [facility] Administration Sodium Chloride 1,000 mls @ 75 mls/hr 01/09/18 01:00 01/10/18 06:50 1/2 Normal Saline IV 75 mls/hr ASDIR [facility] Administration Vancomycin HCl 1,000 mg/ 250 mls @ 250 mls/hr 01/09/18 14:00 01/10/18 14:50 Dextrose IVPB 250 mls/hr DAILY@1400 [facility] Administration CEFTRIAXONE 1 G/50 ML PREMIX 50 mls @ 100 mls/hr 01/09/18 14:00 01/10/18 10: 55 Ceftriaxone 1 Gm-D5w Bag IVPB 100 mls/hr DAILY [facility] Administration Insulin Aspart 1 vial 01/08/18 22:00 01/10/18 12:40 Novolog Vial Sliding Scale - SQ 4 units ACHS [facility] Administration Protocol Insulin Detemir 12 units 01/09/18 22:00 01/09/18 22:53 Levemir Vial SQ 12 units HS [facility] Administration Pregabalin 100 mg 01/08/18 22:00 01/10/18 10:55 Lyrica - PO 100 mg BID [facility] Administration Zolpidem Tartrate 5 mg 01/08/18 18:49 01/09/18 21:57 Ambien - PO 5 mg HS PRN Administration INSOMNIA Impression 1. MALIA 2. cellulitis 3. DM 4. PVD 5. insomnia 6. anemia 7. CKD Plan - cont fluids - repeat labs in am - renal function is stabilizing - will need outpt workup - cont wound care - abx per ID Dr Daniel
--- NOTE | 2018-01-10 20:17 | PN ---
Progress Note, Physician History of Present Illness: S/P I&D of rt index finger - Current Medication List Current Medications: Active Medications Acetaminophen (Tylenol -) 650 mg PO Q6H PRN PRN Reason: pain 4-6 Al Hydroxide/Mg Hydroxide (Mylanta Oral Suspension -) 30 ml PO Q6H PRN PRN Reason: INDIGESTION Last Admin: 01/09/18 09:44 Dose: 30 ml Amlodipine Besylate (Norvasc -) 5 mg PO DAILY [facility] Last Admin: 01/10/18 10:55 Dose: 5 mg Ascorbic Acid (Vitamin C -) 500 mg PO DAILY [facility] Last Admin: 01/10/18 10:55 Dose: 500 mg Clopidogrel Bisulfate (Plavix -) 75 mg PO DAILY [facility] Last Admin: 01/10/18 10:55 Dose: 75 mg Docusate Sodium (Colace -) 100 mg PO TID [facility] Last Admin: 01/10/18 15:02 Dose: 100 mg Ferrous Sulfate (Feosol -) 325 mg PO TIDCM [facility] Last Admin: 01/10/18 17:11 Dose: 325 mg Heparin Sodium (Porcine) (Heparin -) 5,000 unit SQ TID [facility] Last Admin: 01/10/18 14:50 Dose: 5,000 unit Sodium Chloride (1/2 Normal Saline) 1,000 mls @ 75 mls/hr IV ASDIR [facility] Last Admin: 01/10/18 06:50 Dose: 75 mls/hr Vancomycin HCl 1,000 mg/ (Dextrose) 250 mls @ 250 mls/hr IVPB DAILY@1400 [facility] Last Admin: 01/10/18 14:50 Dose: 250 mls/hr CEFTRIAXONE 1 G/50 ML PREMIX (Ceftriaxone 1 Gm-D5w Bag) 50 mls @ 100 mls/hr IVPB DAILY [facility] Last Admin: 01/10/18 10:55 Dose: 100 mls/hr Insulin Aspart (Novolog Vial Sliding Scale -) 1 vial SQ ACHS [facility] PRN Reason: Protocol Last Admin: 01/10/18 17:11 Dose: 8 units Insulin Detemir (Levemir Vial) 12 units SQ HS [facility] Last Admin: 01/09/18 22:53 Dose: 12 units Pregabalin (Lyrica -) 100 mg PO BID [facility] Last Admin: 01/10/18 10:55 Dose: 100 mg Zolpidem Tartrate (Ambien -) 5 mg PO HS PRN PRN Reason: INSOMNIA Last Admin: 01/09/18 21:57 Dose: 5 mg - Objective Vital Signs: Vital Signs Temperature 98.2 F 01/10/18 18:41 Pulse Rate 74 01/10/18 18:41 Respiratory Rate 20 01/10/18 18:41 Blood Pressure 160/74 01/10/18 18:41 O2 Sat by Pulse Oximetry (%) 95 01/10/18 09:00 Constitutional: Yes: Well Nourished Neck: Yes: WNL, Supple Cardiovascular: Yes: WNL, Regular Rate and Rhythm Respiratory: Yes: WNL, Regular, CTA Bilaterally Gastrointestinal: Yes: WNL, Normal Bowel Sounds, Soft Extremities: Yes: Other (RT hand in dressing) Labs: CBC, BMP 01/09/18 07:30 01/10/18 07:50 Problem List - Problems (1) Abscess of finger Assessment/Plan: S/P I&D of finger Cont wound care Antibxs as per ID Code(s): L02.519 - CUTANEOUS ABSCESS OF UNSPECIFIED HAND (2) Renal insufficiency Assessment/Plan: Cont IV hydration Monitor labs As per renal Code(s): N28.9 - DISORDER OF KIDNEY AND URETER, UNSPECIFIED (3) Cellulitis Assessment/Plan: Cont IV antibxs Code(s): L03.90 - CELLULITIS, UNSPECIFIED Qualifiers: Site of cellulitis: unspecified site Qualified Code(s): L03.90 - Cellulitis , unspecified (4) Diabetes mellitus Assessment/Plan: Cont sliding scale w/ coverage Code(s): E11.9 - TYPE 2 DIABETES MELLITUS WITHOUT COMPLICATIONS
[2018-01-10] MEDS: ZOLPIDEM TARTRATE 5 MG TABLET PO PRN (22:23)
[2018-01-10] MEDS: INSULIN DETEMIR 100 UNITS/ML MDV SQ SCH (22:27)
[2018-01-11] MEDS: SODIUM CHLORIDE 0.45% 1,000 ML IV SCH ×2 (06:05→19:00)
[2018-01-11] MEDS: HEPARIN NA (PORCINE) 5,000 UNITS/ML 1ML VIAL SQ SCH ×3 (06:07→21:21)
[2018-01-11] MEDS: DOCUSATE SODIUM 100 MG CAPSULE (FP) PO SCH ×3 (06:07→21:23)
[2018-01-11] MEDS: INSULIN SLIDING SCALE (NOVOLOG) 1 VIAL SQ SCH ×4 (06:55→21:24)
[2018-01-11] MEDS: FERROUS SO4 325 MG TABLET (FP) PO SCH ×3 (08:46→17:34)
[2018-01-11] MEDS: CLOPIDOGREL BISULFATE 75 MG TABLET (FP) PO SCH (10:30)
[2018-01-11] MEDS: ASCORBIC ACID 500 MG TABLET (FP) PO SCH (10:30)
[2018-01-11] MEDS: PREGABALIN 100 MG CAPSULE PO SCH ×2 (10:31→21:23)
[2018-01-11] MEDS: amLODIPine BESYLATE 5 MG TABLET (FP) PO SCH (10:31)
[2018-01-11] MEDS: CEFTRIAXONE 1 G/50 ML PREMIX 50 ML IVPB SCH (10:31)
[2018-01-11] MEDS: SENNOSIDES 8.6MG TABLET (FP) PO SCH ×2 (11:09→21:23)
--- NOTE | 2018-01-11 11:17 | PN ---
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 Garcia. Patient was sent to the ED today after being seen at wound care for pain and swelling of his right hand , 2nd finger. stable overnight, afebrile Tmax 99.3 - Current Medication List Current Medications: Active Medications Acetaminophen (Tylenol -) 650 mg PO Q6H PRN PRN Reason: pain 4-6 Al Hydroxide/Mg Hydroxide (Mylanta Oral Suspension -) 30 ml PO Q6H PRN PRN Reason: INDIGESTION Last Admin: 01/09/18 09:44 Dose: 30 ml Amlodipine Besylate (Norvasc -) 5 mg PO DAILY [facility] Last Admin: 01/11/18 10:31 Dose: 5 mg Ascorbic Acid (Vitamin C -) 500 mg PO DAILY [facility] Last Admin: 01/11/18 10:30 Dose: 500 mg Clopidogrel Bisulfate (Plavix -) 75 mg PO DAILY [facility] Last Admin: 01/11/18 10:30 Dose: 75 mg Docusate Sodium (Colace -) 100 mg PO TID [facility] Last Admin: 01/11/18 06:07 Dose: 100 mg Ferrous Sulfate (Feosol -) 325 mg PO TIDCM [facility] Last Admin: 01/11/18 08:46 Dose: 325 mg Heparin Sodium (Porcine) (Heparin -) 5,000 unit SQ TID [facility] Last Admin: 01/11/18 06:07 Dose: 5,000 unit Sodium Chloride (1/2 Normal Saline) 1,000 mls @ 75 mls/hr IV ASDIR [facility] Last Admin: 01/11/18 06:05 Dose: 75 mls/hr Vancomycin HCl 1,000 mg/ (Dextrose) 250 mls @ 250 mls/hr IVPB DAILY@1400 [facility] Last Admin: 01/10/18 14:50 Dose: 250 mls/hr CEFTRIAXONE 1 G/50 ML PREMIX (Ceftriaxone 1 Gm-D5w Bag) 50 mls @ 100 mls/hr IVPB DAILY [facility] Last Admin: 01/11/18 10:31 Dose: 100 mls/hr Insulin Aspart (Novolog Vial Sliding Scale -) 1 vial SQ ACHS [facility] PRN Reason: Protocol Last Admin: 01/11/18 06:55 Dose: 4 units Insulin Detemir (Levemir Vial) 12 units SQ HS [facility] Last Admin: 01/10/18 22:27 Dose: 12 units Pregabalin (Lyrica -) 100 mg PO BID [facility] Last Admin: 01/11/18 10:31 Dose: 100 mg Senna (Senna -) 1 tab PO HS [facility] Last Admin: 01/11/18 11:09 Dose: 1 tab Zolpidem Tartrate (Ambien -) 5 mg PO HS PRN PRN Reason: INSOMNIA Last Admin: 01/10/18 22:23 Dose: 5 mg - Objective Vital Signs: Vital Signs Temperature 98.1 F 01/11/18 06:00 Pulse Rate 61 01/11/18 06:00 Respiratory Rate 20 01/11/18 06:00 Blood Pressure 143/71 01/11/18 06:00 O2 Sat by Pulse Oximetry (%) 95 01/10/18 21:00 Vital Signs Period Temp Pulse Resp BP Sys/Snow Pulse Ox Last 24 Hr 97.8 F-98.5 F 61-74 18-20 139-160/64-74 95 Constitutional: Yes: No Distress, Calm, Obese Eyes: Yes: Conjunctiva Clear, EOM Intact HENT: Yes: Atraumatic, Normocephalic Neck: Yes: Supple, Trachea Midline Cardiovascular: Yes: Regular Rate and Rhythm, S1, S2. No: Murmur Respiratory: Yes: Regular, CTA Bilaterally Gastrointestinal: Yes: Normal Bowel Sounds, Soft, Abdomen, Obese. No: Tenderness ...Rectal Exam: Yes: Deferred Genitourinary: No: CVA Tenderness - Left, CVA Tenderness - Right Extremities: No: Cool, Cyanosis Wound/Incision: Yes: Unapproximated Neurological: Yes: Alert, Oriented Psychiatric: Yes: Alert, Oriented Labs: CBC, BMP 01/09/18 07:30 01/10/18 07:50 Problem List - Problems (1) Abscess of finger Assessment/Plan: 67 yo male MMP including DM with right index finger abscess POD#2 s/p I&D and debridement of right index finger abscess Daily wound care by [facility] or at wound care Wound Measurement: Dorsum of Right Index finger, [id number] with extensor tendon at the base Dressing Instrucstion: 11/06" iodoform packing, 4X4 gauze and kerlex with tape Right Arm elevation encourage ambulation and Incentive spirometry Adequate analgesia Code(s): L02.519 - CUTANEOUS ABSCESS OF UNSPECIFIED HAND (2) PVD (peripheral vascular disease) Code(s): I73.9 - PERIPHERAL VASCULAR DISEASE, UNSPECIFIED (3) Cellulitis Code(s): L03.90 - CELLULITIS, UNSPECIFIED Qualifiers: Site of cellulitis: unspecified site Qualified Code(s): L03.90 - Cellulitis , unspecified (4) Renal insufficiency Code(s): N28.9 - DISORDER OF KIDNEY AND URETER, UNSPECIFIED (5) Diabetic foot ulcer Code(s): E11.621 - TYPE 2 DIABETES MELLITUS WITH FOOT ULCER; L97.509 - NON- PRESSURE CHRONIC ULCER OTH PRT UNSP FOOT W UNSP SEVERITY
[2018-01-11] MEDS ORDERED: INSULIN (NOVOLOG) ASPART 100 UNITS/ML 10ML VIAL ONE ×3 (12:05→17:31)
--- NOTE | 2018-01-11 13:03 | PN ---
Progress Note (short form) - Note Progress Note: s/p drainage of finger abscess by Dr Mcleod-01/08 he feels well Vital Signs Period Temp Pulse Resp BP Sys/Snow Pulse Ox Last 24 Hr 97.8 F-98.5 F 61-74 18-20 139-160/64-74 95 finger examined - wound with exposed tendon, still some diffuse swelling, able to flex, no palmar erythema CBC, BMP 01/09/18 07:30 01/10/18 07:50 Laboratory Tests 01/09/18 01/10/18 01/10/18 09:50 07:50 07:50 ESR 105 H C-Reactive Protein 10.1 H Random Vancomycin 9.565 Microbiology 01/09/18 09:40 Blood - Peripheral Venous Blood Culture - Preliminary NO GROWTH OBTAINED AFTER 48 HOURS, INCUBATION TO CONTINUE FOR 3 DAYS. 01/09/18 10:00 Blood - Peripheral Venous Blood Culture - Preliminary NO GROWTH OBTAINED AFTER 48 HOURS, INCUBATION TO CONTINUE FOR 3 DAYS. 01/08/18 19:45 Finger - Right Index Finger Gram Stain - Final 01/08/18 19:45 Finger - Right Index Finger Wound Culture - Final Mr S Aureus 01/08/18 19:45 Finger - Right Index Finger Wound Culture - Preliminary Presumptive Mrsa (Pbp2a Pos) 01/06/18 13:00 Wound Gram Stain - Final 01/06/18 13:00 Wound Wound Culture - Final Mr S Aureus Streptococcus Pyogenes Grp A a/p s/p drainage of finger abscess-MRSA, Group A strep DM renal insufficiency- improving vancomycin daily /rocephin, vancomycin trough today repeat crp in am repeat renal function in am Problem List - Problems (1) Cellulitis Code(s): L03.90 - CELLULITIS, UNSPECIFIED Qualifiers: Site of cellulitis: unspecified site Qualified Code(s): L03.90 - Cellulitis , unspecified (2) Abscess of finger of right hand Code(s): L02.511 - CUTANEOUS ABSCESS OF RIGHT HAND (3) Renal insufficiency Code(s): N28.9 - DISORDER OF KIDNEY AND URETER, UNSPECIFIED
[2018-01-11] MEDS ORDERED: PT OWN MED DRAWER 7, Y5N ONE (15:07)
[2018-01-11] MEDS: VANCOMYCIN 1,000 MG in DEXTROSE 5%-WATER - 250 ML IVPB SCH (15:10)
--- NOTE | 2018-01-11 18:41 | PN ---
Progress Note, Physician History of Present Illness: Pt seen and examined at bedside. He is awake and alert. He denies shortness of breath. - Current Medication List Current Medications: Active Medications Acetaminophen (Tylenol -) 650 mg PO Q6H PRN PRN Reason: pain 4-6 Al Hydroxide/Mg Hydroxide (Mylanta Oral Suspension -) 30 ml PO Q6H PRN PRN Reason: INDIGESTION Last Admin: 01/09/18 09:44 Dose: 30 ml Amlodipine Besylate (Norvasc -) 5 mg PO DAILY [facility] Last Admin: 01/11/18 10:31 Dose: 5 mg Ascorbic Acid (Vitamin C -) 500 mg PO DAILY [facility] Last Admin: 01/11/18 10:30 Dose: 500 mg Clopidogrel Bisulfate (Plavix -) 75 mg PO DAILY [facility] Last Admin: 01/11/18 10:30 Dose: 75 mg Docusate Sodium (Colace -) 100 mg PO TID [facility] Last Admin: 01/11/18 15:10 Dose: 100 mg Ferrous Sulfate (Feosol -) 325 mg PO TIDCM [facility] Last Admin: 01/11/18 17:34 Dose: 325 mg Heparin Sodium (Porcine) (Heparin -) 5,000 unit SQ TID [facility] Last Admin: 01/11/18 15:10 Dose: 5,000 unit Sodium Chloride (1/2 Normal Saline) 1,000 mls @ 75 mls/hr IV ASDIR [facility] Last Admin: 01/11/18 06:05 Dose: 75 mls/hr Vancomycin HCl 1,000 mg/ (Dextrose) 250 mls @ 250 mls/hr IVPB DAILY@1400 [facility] Last Admin: 01/11/18 15:10 Dose: 250 mls/hr CEFTRIAXONE 1 G/50 ML PREMIX (Ceftriaxone 1 Gm-D5w Bag) 50 mls @ 100 mls/hr IVPB DAILY [facility] Last Admin: 01/11/18 10:31 Dose: 100 mls/hr Insulin Aspart (Novolog Vial Sliding Scale -) 1 vial SQ ACHS [facility] PRN Reason: Protocol Last Admin: 01/11/18 17:33 Dose: 8 units Insulin Detemir (Levemir Vial) 12 units SQ HS [facility] Last Admin: 01/10/18 22:27 Dose: 12 units Pregabalin (Lyrica -) 100 mg PO BID [facility] Last Admin: 01/11/18 10:31 Dose: 100 mg Senna (Senna -) 1 tab PO HS [facility] Last Admin: 01/11/18 11:09 Dose: 1 tab Zolpidem Tartrate (Ambien -) 5 mg PO HS PRN PRN Reason: INSOMNIA Last Admin: 01/10/18 22:23 Dose: 5 mg - Objective Vital Signs: Vital Signs Temperature 98.6 F 01/11/18 17:00 Pulse Rate 69 01/11/18 17:00 Respiratory Rate 16 01/11/18 17:00 Blood Pressure 106/51 01/11/18 17:00 O2 Sat by Pulse Oximetry (%) 97 01/11/18 09:00 Constitutional: Yes: Calm Eyes: Yes: Conjunctiva Clear HENT: Yes: Atraumatic Neck: Yes: Supple Cardiovascular: Yes: S1, S2 Respiratory: Yes: CTA Bilaterally Gastrointestinal: Yes: Soft Genitourinary: Yes: WNL Musculoskeletal: Yes: WNL Edema: Yes Edema: LLE: Trace, RLE: Trace Wound/Incision: Yes: Dressing Dry and Intact Neurological: Yes: Oriented Psychiatric: Yes: Oriented Labs: CBC, BMP 01/09/18 07:30 01/10/18 07:50 Problem List - Problems (1) Cellulitis Code(s): L03.90 - CELLULITIS, UNSPECIFIED Qualifiers: Site of cellulitis: unspecified site Qualified Code(s): L03.90 - Cellulitis , unspecified (2) Renal insufficiency Code(s): N28.9 - DISORDER OF KIDNEY AND URETER, UNSPECIFIED (3) Diabetic foot ulcer Code(s): E11.621 - TYPE 2 DIABETES MELLITUS WITH FOOT ULCER; L97.509 - NON- PRESSURE CHRONIC ULCER OTH PRT UNSP FOOT W UNSP SEVERITY Assessment/Plan Current Medications Generic Name Dose Route Start Last Admin Trade Name Freq PRN Reason Stop Dose Admin Acetaminophen 650 mg 01/08/18 18:49 Tylenol - PO Q6H PRN pain 4-6 Al Hydroxide/Mg Hydroxide 30 ml 01/08/18 18:49 01/09/18 09:44 Mylanta Oral Suspension - PO 30 ml Q6H PRN Administration INDIGESTION Amlodipine Besylate 5 mg 01/09/18 10:45 01/11/18 10:31 Norvasc - PO 5 mg DAILY [facility] Administration Ascorbic Acid 500 mg 01/09/18 10:00 01/11/18 10:30 Vitamin C - PO 500 mg DAILY [facility] Administration Clopidogrel Bisulfate 75 mg 01/09/18 10:00 01/11/18 10:30 Plavix - PO 75 mg DAILY [facility] Administration Docusate Sodium 100 mg 01/09/18 01:00 01/11/18 15:10 Colace - PO 100 mg TID [facility] Administration Ferrous Sulfate 325 mg 01/09/18 12:00 01/11/18 17:34 Feosol - PO 325 mg TIDCM [facility] Administration Heparin Sodium (Porcine) 5,000 unit 01/08/18 22:00 01/11/18 15:10 Heparin - SQ 5,000 unit TID [facility] Administration Sodium Chloride 1,000 mls @ 75 mls/hr 01/09/18 01:00 01/11/18 06:05 1/2 Normal Saline IV 75 mls/hr ASDIR [facility] Administration Vancomycin HCl 1,000 mg/ 250 mls @ 250 mls/hr 01/09/18 14:00 01/11/18 15:10 Dextrose IVPB 250 mls/hr DAILY@1400 [facility] Administration CEFTRIAXONE 1 G/50 ML PREMIX 50 mls @ 100 mls/hr 01/09/18 14:00 01/11/18 10: 31 Ceftriaxone 1 Gm-D5w Bag IVPB 100 mls/hr DAILY [facility] Administration Insulin Aspart 1 vial 01/08/18 22:00 01/11/18 17:33 Novolog Vial Sliding Scale - SQ 8 units ACHS [facility] Administration Protocol Insulin Detemir 12 units 01/09/18 22:00 01/10/18 22:27 Levemir Vial SQ 12 units HS [facility] Administration Pregabalin 100 mg 01/08/18 22:00 01/11/18 10:31 Lyrica - PO 100 mg BID [facility] Administration Senna 1 tab 01/11/18 10:45 01/11/18 11:09 Senna - PO 1 tab HS [facility] Administration Zolpidem Tartrate 5 mg 01/08/18 18:49 01/10/18 22:23 Ambien - PO 5 mg HS PRN Administration INSOMNIA Impression 1. MALIA 2. cellulitis 3. DM 4. PVD 5. insomnia 6. anemia 7. CKD Plan - check bmp in am - cont fluids - cont abx - follow cultures - will need outpt workup - cont wound care - abx per ID Dr Daniel
[2018-01-11] MEDS: ZOLPIDEM TARTRATE 5 MG TABLET PO PRN (21:23)
[2018-01-11] MEDS: INSULIN DETEMIR 100 UNITS/ML MDV SQ SCH (21:24)
--- NOTE | 2018-01-11 23:07 | PN ---
Progress Note, Physician - Current Medication List Current Medications: Active Medications Acetaminophen (Tylenol -) 650 mg PO Q6H PRN PRN Reason: pain 4-6 Al Hydroxide/Mg Hydroxide (Mylanta Oral Suspension -) 30 ml PO Q6H PRN PRN Reason: INDIGESTION Last Admin: 01/09/18 09:44 Dose: 30 ml Amlodipine Besylate (Norvasc -) 5 mg PO DAILY [facility] Last Admin: 01/11/18 10:31 Dose: 5 mg Ascorbic Acid (Vitamin C -) 500 mg PO DAILY [facility] Last Admin: 01/11/18 10:30 Dose: 500 mg Clopidogrel Bisulfate (Plavix -) 75 mg PO DAILY [facility] Last Admin: 01/11/18 10:30 Dose: 75 mg Docusate Sodium (Colace -) 100 mg PO TID [facility] Last Admin: 01/11/18 21:23 Dose: 100 mg Ferrous Sulfate (Feosol -) 325 mg PO TIDCM [facility] Last Admin: 01/11/18 17:34 Dose: 325 mg Heparin Sodium (Porcine) (Heparin -) 5,000 unit SQ TID [facility] Last Admin: 01/11/18 21:21 Dose: 5,000 unit Sodium Chloride (1/2 Normal Saline) 1,000 mls @ 75 mls/hr IV ASDIR [facility] Last Admin: 01/11/18 19:00 Dose: 75 mls/hr Vancomycin HCl 1,000 mg/ (Dextrose) 250 mls @ 250 mls/hr IVPB DAILY@1400 [facility] Last Admin: 01/11/18 15:10 Dose: 250 mls/hr CEFTRIAXONE 1 G/50 ML PREMIX (Ceftriaxone 1 Gm-D5w Bag) 50 mls @ 100 mls/hr IVPB DAILY [facility] Last Admin: 01/11/18 10:31 Dose: 100 mls/hr Insulin Aspart (Novolog Vial Sliding Scale -) 1 vial SQ ACHS [facility] PRN Reason: Protocol Last Admin: 01/11/18 21:24 Dose: 6 units Insulin Detemir (Levemir Vial) 12 units SQ HS [facility] Last Admin: 01/11/18 21:24 Dose: 12 units Pregabalin (Lyrica -) 100 mg PO BID [facility] Last Admin: 01/11/18 21:23 Dose: 100 mg Senna (Senna -) 1 tab PO HS [facility] Last Admin: 01/11/18 21:23 Dose: 1 tab Zolpidem Tartrate (Ambien -) 5 mg PO HS PRN PRN Reason: INSOMNIA Last Admin: 01/11/18 21:23 Dose: 5 mg - Objective Vital Signs: Vital Signs Temperature 98.6 F 01/11/18 17:00 Pulse Rate 69 01/11/18 17:00 Respiratory Rate 16 01/11/18 17:00 Blood Pressure 106/51 01/11/18 17:00 O2 Sat by Pulse Oximetry (%) 97 01/11/18 09:00 Labs: CBC, BMP 01/09/18 07:30 01/10/18 07:50 Problem List - Problems (1) Abscess of finger Code(s): L02.519 - CUTANEOUS ABSCESS OF UNSPECIFIED HAND (2) Renal insufficiency Code(s): N28.9 - DISORDER OF KIDNEY AND URETER, UNSPECIFIED (3) Cellulitis Code(s): L03.90 - CELLULITIS, UNSPECIFIED Qualifiers: Site of cellulitis: unspecified site Qualified Code(s): L03.90 - Cellulitis , unspecified (4) Diabetes mellitus Code(s): E11.9 - TYPE 2 DIABETES MELLITUS WITHOUT COMPLICATIONS
[2018-01-12] MEDS: SODIUM CHLORIDE 0.45% 1,000 ML IV SCH (01:20)
[2018-01-12] MEDS: DOCUSATE SODIUM 100 MG CAPSULE (FP) PO SCH ×3 (06:20→22:06)
[2018-01-12] MEDS: HEPARIN NA (PORCINE) 5,000 UNITS/ML 1ML VIAL SQ SCH ×3 (06:20→22:07)
[2018-01-12] MEDS: INSULIN SLIDING SCALE (NOVOLOG) 1 VIAL SQ SCH ×4 (06:21→22:07)
[2018-01-12 08:12] LABS: ANION GAP 10 (8-16); BLOOD UREA NITROGEN 22 mg/dL (7-18); CALCIUM 7.2 mg/dL (8.5-10.1); CHLORIDE 109 mmol/L (98-107); CO2 23 mmol/L (21-32); CREATININE 1.9 mg/dL (0.7-1.3); GLUCOSE,RANDOM 223 mg/dL (74-106); POTASSIUM 3.7 mmol/L (3.5-5.1); SODIUM 142 mmol/L (136-145)
[2018-01-12] MEDS: FERROUS SO4 325 MG TABLET (FP) PO SCH ×3 (08:27→17:21)
[2018-01-12] MEDS ORDERED: PICC LINE 8 ML FLUSH PROTOCOL IVPUSH PRN (08:59)
--- NOTE | 2018-01-12 08:59 | PN ---
Progress Note (short form) - Note Progress Note: s/p drainage of finger abscess by Dr Mcleod-01/08 he feels well anxious to go home Vital Signs Period Temp Pulse Resp BP Sys/Snow Pulse Ox Last 24 Hr 97.2 F-98.8 F 64-80 16-20 106-150/51-80 97-99 cor-rrr llungs clear abd soft,nt ext finger is wrapped CBC, BMP 01/09/18 07:30 01/12/18 06:35 Laboratory Tests 01/10/18 01/10/18 01/12/18 07:50 07:50 06:35 ESR 105 H C-Reactive Protein 10.1 H 3.1 H Microbiology 01/09/18 09:40 Blood - Peripheral Venous Blood Culture - Preliminary NO GROWTH OBTAINED AFTER 48 HOURS, INCUBATION TO CONTINUE FOR 3 DAYS. 01/09/18 10:00 Blood - Peripheral Venous Blood Culture - Preliminary NO GROWTH OBTAINED AFTER 48 HOURS, INCUBATION TO CONTINUE FOR 3 DAYS. 01/08/18 19:45 Finger - Right Index Finger Gram Stain - Final 01/08/18 19:45 Finger - Right Index Finger Wound Culture - Final S Aureus 01/08/18 19:45 Finger - Right Index Finger Wound Culture - Preliminary Presumptive Mrsa (Pbp2a Pos) 01/06/18 13:00 Wound Gram Stain - Final 01/06/18 13:00 Wound Wound Culture - Final Mr S Aureus-clindamycin resistant Streptococcus Pyogenes Grp A vanco trough 12.8 Current Medications Acetaminophen (Tylenol -) 650 mg PO Q6H PRN PRN Reason: pain 4-6 Al Hydroxide/Mg Hydroxide (Mylanta Oral Suspension -) 30 ml PO Q6H PRN PRN Reason: INDIGESTION Last Admin: 01/09/18 09:44 Dose: 30 ml Amlodipine Besylate (Norvasc -) 5 mg PO DAILY [facility] Last Admin: 01/11/18 10:31 Dose: 5 mg Ascorbic Acid (Vitamin C -) 500 mg PO DAILY [facility] Last Admin: 01/11/18 10:30 Dose: 500 mg Clopidogrel Bisulfate (Plavix -) 75 mg PO DAILY [facility] Last Admin: 01/11/18 10:30 Dose: 75 mg Docusate Sodium (Colace -) 100 mg PO TID [facility] Last Admin: 01/12/18 06:20 Dose: 100 mg Ferrous Sulfate (Feosol -) 325 mg PO TIDCM [facility] Last Admin: 01/12/18 08:27 Dose: 325 mg Heparin Sodium (Porcine) (Heparin -) 5,000 unit SQ TID [facility] Last Admin: 01/12/18 06:20 Dose: 5,000 unit IV Flush (Picc Line Flush) 8 ml IVPUSH PRN PRN PRN Reason: Protocol Sodium Chloride (1/2 Normal Saline) 1,000 mls @ 75 mls/hr IV ASDIR [facility] Last Admin: 01/12/18 01:20 Dose: 75 mls/hr Vancomycin HCl 1,000 mg/ (Dextrose) 250 mls @ 250 mls/hr IVPB DAILY@1400 [facility] Last Admin: 01/11/18 15:10 Dose: 250 mls/hr CEFTRIAXONE 1 G/50 ML PREMIX (Ceftriaxone 1 Gm-D5w Bag) 50 mls @ 100 mls/hr IVPB DAILY [facility] Last Admin: 01/11/18 10:31 Dose: 100 mls/hr Insulin Aspart (Novolog Vial Sliding Scale -) 1 vial SQ ACHS [facility] PRN Reason: Protocol Last Admin: 01/12/18 06:21 Dose: 6 units Insulin Detemir (Levemir Vial) 12 units SQ HS [facility] Last Admin: 01/11/18 21:24 Dose: 12 units Pregabalin (Lyrica -) 100 mg PO BID [facility] Last Admin: 01/11/18 21:23 Dose: 100 mg Senna (Senna -) 1 tab PO HS [facility] Last Admin: 01/11/18 21:23 Dose: 1 tab Zolpidem Tartrate (Ambien -) 5 mg PO HS PRN PRN Reason: INSOMNIA Last Admin: 01/11/18 21:23 Dose: 5 mg a/p s/p drainage of finger abscess-MRSA, Group A strep DM renal insufficiency- stable given elevated inflammatory markers and extent of drainage will place picc line and treat with iv vancomycin will need close f/u of labs as outpt needs close f/u with ID and 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
[2018-01-12] MEDS: amLODIPine BESYLATE 5 MG TABLET (FP) PO SCH (09:55)
[2018-01-12] MEDS: CLOPIDOGREL BISULFATE 75 MG TABLET (FP) PO SCH (09:55)
[2018-01-12] MEDS: PREGABALIN 100 MG CAPSULE PO SCH ×2 (09:55→22:06)
[2018-01-12] MEDS: CEFTRIAXONE 1 G/50 ML PREMIX 50 ML IVPB SCH (09:55)
[2018-01-12] MEDS: ASCORBIC ACID 500 MG TABLET (FP) PO SCH (09:55)
--- NOTE | 2018-01-12 10:17 | PN ---
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 Garcia. Patient was sent to the ED today after being seen at wound care for pain and swelling of his right hand , 2nd finger. stable overnight, afebrile. - Current Medication List Current Medications: Active Medications Acetaminophen (Tylenol -) 650 mg PO Q6H PRN PRN Reason: pain 4-6 Al Hydroxide/Mg Hydroxide (Mylanta Oral Suspension -) 30 ml PO Q6H PRN PRN Reason: INDIGESTION Last Admin: 01/09/18 09:44 Dose: 30 ml Amlodipine Besylate (Norvasc -) 5 mg PO DAILY [facility] Last Admin: 01/12/18 09:55 Dose: 5 mg Ascorbic Acid (Vitamin C -) 500 mg PO DAILY [facility] Last Admin: 01/12/18 09:55 Dose: 500 mg Clopidogrel Bisulfate (Plavix -) 75 mg PO DAILY [facility] Last Admin: 01/12/18 09:55 Dose: 75 mg Docusate Sodium (Colace -) 100 mg PO TID [facility] Last Admin: 01/12/18 06:20 Dose: 100 mg Ferrous Sulfate (Feosol -) 325 mg PO TIDCM [facility] Last Admin: 01/12/18 08:27 Dose: 325 mg Heparin Sodium (Porcine) (Heparin -) 5,000 unit SQ TID [facility] Last Admin: 01/12/18 06:20 Dose: 5,000 unit IV Flush (Picc Line Flush) 8 ml IVPUSH PRN PRN PRN Reason: Protocol Sodium Chloride (1/2 Normal Saline) 1,000 mls @ 75 mls/hr IV ASDIR [facility] Last Admin: 01/12/18 01:20 Dose: 75 mls/hr Vancomycin HCl 1,000 mg/ (Dextrose) 250 mls @ 250 mls/hr IVPB DAILY@1400 [facility] Last Admin: 01/11/18 15:10 Dose: 250 mls/hr CEFTRIAXONE 1 G/50 ML PREMIX (Ceftriaxone 1 Gm-D5w Bag) 50 mls @ 100 mls/hr IVPB DAILY [facility] Last Admin: 01/12/18 09:55 Dose: 100 mls/hr Insulin Aspart (Novolog Vial Sliding Scale -) 1 vial SQ ACHS [facility] PRN Reason: Protocol Last Admin: 01/12/18 06:21 Dose: 6 units Insulin Detemir (Levemir Vial) 12 units SQ HS [facility] Last Admin: 01/11/18 21:24 Dose: 12 units Pregabalin (Lyrica -) 100 mg PO BID [facility] Last Admin: 01/12/18 09:55 Dose: 100 mg Senna (Senna -) 1 tab PO HS [facility] Last Admin: 01/11/18 21:23 Dose: 1 tab Zolpidem Tartrate (Ambien -) 5 mg PO HS PRN PRN Reason: INSOMNIA Last Admin: 01/11/18 21:23 Dose: 5 mg - Objective Vital Signs: Vital Signs Temperature 98.8 F 01/12/18 10:00 Pulse Rate 65 01/12/18 10:00 Respiratory Rate 18 01/12/18 10:00 Blood Pressure 151/72 01/12/18 10:00 O2 Sat by Pulse Oximetry (%) 99 01/11/18 21:00 Vital Signs Period Temp Pulse Resp BP Sys/Snow Pulse Ox Last 24 Hr 97.2 F-98.8 F 64-71 16-20 106-151/51-80 99 Constitutional: Yes: No Distress, Calm, Anxious, Obese Eyes: Yes: Conjunctiva Clear, EOM Intact HENT: Yes: Atraumatic, Normocephalic Neck: Yes: Supple, Trachea Midline Cardiovascular: Yes: Regular Rate and Rhythm, S1, S2. No: Murmur Respiratory: Yes: Regular, CTA Bilaterally Gastrointestinal: Yes: Normal Bowel Sounds, Soft. No: Tenderness ...Rectal Exam: Yes: Deferred Extremities: No: Cool, Cyanosis Wound/Incision: Yes: Unapproximated (right index finger). No: Draining, Reddened, Bleeding Neurological: Yes: Alert, Oriented Psychiatric: Yes: Alert, Oriented Labs: CBC, BMP 01/09/18 07:30 01/12/18 06:35 Microbiology 01/09/18 09:40 Blood - Peripheral Venous Blood Culture - Preliminary NO GROWTH OBTAINED AFTER 72 HOURS, INCUBATION TO CONTINUE FOR 2 DAYS. 01/09/18 10:00 Blood - Peripheral Venous Blood Culture - Preliminary NO GROWTH OBTAINED AFTER 72 HOURS, INCUBATION TO CONTINUE FOR 2 DAYS. 01/08/18 19:45 Finger - Right Index Finger Gram Stain - Final 01/08/18 19:45 Finger - Right Index Finger Wound Culture - Final Presumptive Mrsa (Pbp2a Pos) 01/08/18 19:45 Finger - Right Index Finger Gram Stain - Final 01/08/18 19:45 Finger - Right Index Finger Wound Culture - Final S Aureus 01/06/18 13:00 Wound Gram Stain - Final 01/06/18 13:00 Wound Wound Culture - Final S Aureus Streptococcus Pyogenes Grp A Problem List - Problems (1) Abscess of finger Assessment/Plan: 67 yo male MMP including DM with right index finger abscess POD#3 s/p I&D and debridement of right index finger abscess, MRSA in culture. Agree with PICC and continued IV antibiotics Physical Therapy evaluation - Right hand active and passive ROM and strengthening exercises Daily wound care by . She should come in to learn how to do the dressing prior to discharge Wound Measurement: Dorsum of Right Index finger, 0.5cmX0.5cmX0.2cm with extensor tendon at the base Dressing Instrucstion: 11/06" iodoform packing, 4X4 gauze and kerlex with tape Right Arm elevation Adequate analgesia Code(s): L02.519 - CUTANEOUS ABSCESS OF UNSPECIFIED HAND (2) PVD (peripheral vascular disease) Code(s): I73.9 - PERIPHERAL VASCULAR DISEASE, UNSPECIFIED (3) Cellulitis Code(s): L03.90 - CELLULITIS, UNSPECIFIED Qualifiers: Site of cellulitis: unspecified site Qualified Code(s): L03.90 - Cellulitis , unspecified (4) Renal insufficiency Code(s): N28.9 - DISORDER OF KIDNEY AND URETER, UNSPECIFIED (5) Diabetic foot ulcer Code(s): E11.621 - TYPE 2 DIABETES MELLITUS WITH FOOT ULCER; L97.509 - NON- PRESSURE CHRONIC ULCER OTH PRT UNSP FOOT W UNSP SEVERITY
[2018-01-12] MEDS ORDERED: PT OWN MED DRAWER 7, Y5N ONE (13:50)
[2018-01-12] MEDS: VANCOMYCIN 1,000 MG in DEXTROSE 5%-WATER - 250 ML IVPB SCH (13:55)
--- NOTE | 2018-01-12 18:19 | PN ---
Progress Note, Physician History of Present Illness: Pt seen and examined at bedside. He is awake and alert. He is eager to go home. - Current Medication List Current Medications: Active Medications Acetaminophen (Tylenol -) 650 mg PO Q6H PRN PRN Reason: pain 4-6 Al Hydroxide/Mg Hydroxide (Mylanta Oral Suspension -) 30 ml PO Q6H PRN PRN Reason: INDIGESTION Last Admin: 01/09/18 09:44 Dose: 30 ml Amlodipine Besylate (Norvasc -) 5 mg PO DAILY [facility] Last Admin: 01/12/18 09:55 Dose: 5 mg Ascorbic Acid (Vitamin C -) 500 mg PO DAILY [facility] Last Admin: 01/12/18 09:55 Dose: 500 mg Clopidogrel Bisulfate (Plavix -) 75 mg PO DAILY [facility] Last Admin: 01/12/18 09:55 Dose: 75 mg Docusate Sodium (Colace -) 100 mg PO TID [facility] Last Admin: 01/12/18 13:55 Dose: 100 mg Ferrous Sulfate (Feosol -) 325 mg PO TIDCM [facility] Last Admin: 01/12/18 17:21 Dose: 325 mg Heparin Sodium (Porcine) (Heparin -) 5,000 unit SQ TID [facility] Last Admin: 01/12/18 13:55 Dose: 5,000 unit IV Flush (Picc Line Flush) 8 ml IVPUSH PRN PRN PRN Reason: Protocol Sodium Chloride (1/2 Normal Saline) 1,000 mls @ 75 mls/hr IV ASDIR [facility] Last Admin: 01/12/18 01:20 Dose: 75 mls/hr Vancomycin HCl 1,000 mg/ (Dextrose) 250 mls @ 250 mls/hr IVPB DAILY@1400 [facility] Last Admin: 01/12/18 13:55 Dose: 250 mls/hr CEFTRIAXONE 1 G/50 ML PREMIX (Ceftriaxone 1 Gm-D5w Bag) 50 mls @ 100 mls/hr IVPB DAILY [facility] Last Admin: 01/12/18 09:55 Dose: 100 mls/hr Insulin Aspart (Novolog Vial Sliding Scale -) 1 vial SQ ACHS [facility] PRN Reason: Protocol Last Admin: 01/12/18 16:50 Dose: 4 units Insulin Detemir (Levemir Vial) 12 units SQ HS [facility] Last Admin: 01/11/18 21:24 Dose: 12 units Pregabalin (Lyrica -) 100 mg PO BID [facility] Last Admin: 01/12/18 09:55 Dose: 100 mg Senna (Senna -) 1 tab PO HS [facility] Last Admin: 01/11/18 21:23 Dose: 1 tab Zolpidem Tartrate (Ambien -) 5 mg PO HS PRN PRN Reason: INSOMNIA Last Admin: 01/11/18 21:23 Dose: 5 mg - Objective Vital Signs: Vital Signs Temperature 98.9 F 01/12/18 14:58 Pulse Rate 66 01/12/18 14:58 Respiratory Rate 20 01/12/18 14:58 Blood Pressure 140/61 01/12/18 14:58 O2 Sat by Pulse Oximetry (%) 99 01/11/18 21:00 Constitutional: Yes: Calm Eyes: Yes: Conjunctiva Clear HENT: Yes: Atraumatic Neck: Yes: Supple Cardiovascular: Yes: S1, S2 Respiratory: Yes: CTA Bilaterally Gastrointestinal: Yes: Normal Bowel Sounds, Soft Genitourinary: Yes: WNL Musculoskeletal: Yes: WNL Edema: Yes Edema: LLE: Trace, RLE: Trace Neurological: Yes: Oriented Psychiatric: Yes: Oriented Labs: CBC, BMP 01/09/18 07:30 01/12/18 06:35 Problem List - Problems (1) Cellulitis Code(s): L03.90 - CELLULITIS, UNSPECIFIED Qualifiers: Site of cellulitis: unspecified site Qualified Code(s): L03.90 - Cellulitis , unspecified (2) Renal insufficiency Code(s): N28.9 - DISORDER OF KIDNEY AND URETER, UNSPECIFIED (3) Diabetic foot ulcer Code(s): E11.621 - TYPE 2 DIABETES MELLITUS WITH FOOT ULCER; L97.509 - NON- PRESSURE CHRONIC ULCER OTH PRT UNSP FOOT W UNSP SEVERITY Assessment/Plan Current Medications Generic Name Dose Route Start Last Admin Trade Name Freq PRN Reason Stop Dose Admin Acetaminophen 650 mg 01/08/18 18:49 Tylenol - PO Q6H PRN pain 4-6 Al Hydroxide/Mg Hydroxide 30 ml 01/08/18 18:49 01/09/18 09:44 Mylanta Oral Suspension - PO 30 ml Q6H PRN Administration INDIGESTION Amlodipine Besylate 5 mg 01/09/18 10:45 01/12/18 09:55 Norvasc - PO 5 mg DAILY [facility] Administration Ascorbic Acid 500 mg 01/09/18 10:00 01/12/18 09:55 Vitamin C - PO 500 mg DAILY [facility] Administration Clopidogrel Bisulfate 75 mg 01/09/18 10:00 01/12/18 09:55 Plavix - PO 75 mg DAILY [facility] Administration Docusate Sodium 100 mg 01/09/18 01:00 01/12/18 13:55 Colace - PO 100 mg TID [facility] Administration Ferrous Sulfate 325 mg 01/09/18 12:00 01/12/18 17:21 Feosol - PO 325 mg TIDCM [facility] Administration Heparin Sodium (Porcine) 5,000 unit 01/08/18 22:00 01/12/18 13:55 Heparin - SQ 5,000 unit TID [facility] Administration IV Flush 8 ml 01/12/18 08:59 Picc Line Flush IVPUSH PRN PRN Protocol Sodium Chloride 1,000 mls @ 75 mls/hr 01/09/18 01:00 01/12/18 01:20 1/2 Normal Saline IV 75 mls/hr ASDIR [facility] Administration Vancomycin HCl 1,000 mg/ 250 mls @ 250 mls/hr 01/09/18 14:00 01/12/18 13:55 Dextrose IVPB 250 mls/hr DAILY@1400 [facility] Administration CEFTRIAXONE 1 G/50 ML PREMIX 50 mls @ 100 mls/hr 01/09/18 14:00 01/12/18 09: 55 Ceftriaxone 1 Gm-D5w Bag IVPB 100 mls/hr DAILY [facility] Administration Insulin Aspart 1 vial 01/08/18 22:00 01/12/18 16:50 Novolog Vial Sliding Scale - SQ 4 units ACHS [facility] Administration Protocol Insulin Detemir 12 units 01/09/18 22:00 01/11/18 21:24 Levemir Vial SQ 12 units HS [facility] Administration Pregabalin 100 mg 01/08/18 22:00 01/12/18 09:55 Lyrica - PO 100 mg BID [facility] Administration Senna 1 tab 01/11/18 10:45 01/11/18 21:23 Senna - PO 1 tab HS [facility] Administration Zolpidem Tartrate 5 mg 01/08/18 18:49 01/11/18 21:23 Ambien - PO 5 mg HS PRN Administration INSOMNIA Impression 1. MALIA 2. cellulitis 3. DM 4. PVD 5. insomnia 6. anemia 7. CKD Plan - monitor vanco levels - will need outpt follow up - discussed abx with ID - check bmp in am - cont fluids - cont wound care Dr Daniel
--- NOTE | 2018-01-12 21:18 | PN ---
Progress Note, Physician - Current Medication List Current Medications: Active Medications Acetaminophen (Tylenol -) 650 mg PO Q6H PRN PRN Reason: pain 4-6 Al Hydroxide/Mg Hydroxide (Mylanta Oral Suspension -) 30 ml PO Q6H PRN PRN Reason: INDIGESTION Last Admin: 01/09/18 09:44 Dose: 30 ml Amlodipine Besylate (Norvasc -) 5 mg PO DAILY [facility] Last Admin: 01/12/18 09:55 Dose: 5 mg Ascorbic Acid (Vitamin C -) 500 mg PO DAILY [facility] Last Admin: 01/12/18 09:55 Dose: 500 mg Clopidogrel Bisulfate (Plavix -) 75 mg PO DAILY [facility] Last Admin: 01/12/18 09:55 Dose: 75 mg Docusate Sodium (Colace -) 100 mg PO TID [facility] Last Admin: 01/12/18 13:55 Dose: 100 mg Ferrous Sulfate (Feosol -) 325 mg PO TIDCM [facility] Last Admin: 01/12/18 17:21 Dose: 325 mg Heparin Sodium (Porcine) (Heparin -) 5,000 unit SQ TID [facility] Last Admin: 01/12/18 13:55 Dose: 5,000 unit IV Flush (Picc Line Flush) 8 ml IVPUSH PRN PRN PRN Reason: Protocol Sodium Chloride (1/2 Normal Saline) 1,000 mls @ 75 mls/hr IV ASDIR [facility] Last Admin: 01/12/18 01:20 Dose: 75 mls/hr Vancomycin HCl 1,000 mg/ (Dextrose) 250 mls @ 250 mls/hr IVPB DAILY@1400 [facility] Last Admin: 01/12/18 13:55 Dose: 250 mls/hr CEFTRIAXONE 1 G/50 ML PREMIX (Ceftriaxone 1 Gm-D5w Bag) 50 mls @ 100 mls/hr IVPB DAILY [facility] Last Admin: 01/12/18 09:55 Dose: 100 mls/hr Insulin Aspart (Novolog Vial Sliding Scale -) 1 vial SQ ACHS [facility] PRN Reason: Protocol Last Admin: 01/12/18 16:50 Dose: 4 units Insulin Detemir (Levemir Vial) 12 units SQ HS [facility] Last Admin: 01/11/18 21:24 Dose: 12 units Pregabalin (Lyrica -) 100 mg PO BID [facility] Last Admin: 01/12/18 09:55 Dose: 100 mg Senna (Senna -) 1 tab PO HS [facility] Last Admin: 01/11/18 21:23 Dose: 1 tab Zolpidem Tartrate (Ambien -) 5 mg PO HS PRN PRN Reason: INSOMNIA Last Admin: 01/11/18 21:23 Dose: 5 mg - Objective Vital Signs: Vital Signs Temperature 99.2 F 01/12/18 18:42 Pulse Rate 68 01/12/18 18:42 Respiratory Rate 20 01/12/18 18:42 Blood Pressure 151/66 01/12/18 18:42 O2 Sat by Pulse Oximetry (%) 99 01/11/18 21:00 Labs: CBC, BMP 01/09/18 07:30 01/12/18 06:35 Problem List - Problems (1) Abscess of finger Code(s): L02.519 - CUTANEOUS ABSCESS OF UNSPECIFIED HAND (2) Renal insufficiency Code(s): N28.9 - DISORDER OF KIDNEY AND URETER, UNSPECIFIED (3) Cellulitis Code(s): L03.90 - CELLULITIS, UNSPECIFIED Qualifiers: Site of cellulitis: unspecified site Qualified Code(s): L03.90 - Cellulitis , unspecified (4) Diabetes mellitus Code(s): E11.9 - TYPE 2 DIABETES MELLITUS WITHOUT COMPLICATIONS
[2018-01-12] MEDS: SENNOSIDES 8.6MG TABLET (FP) PO SCH (22:06)
[2018-01-12] MEDS: ZOLPIDEM TARTRATE 5 MG TABLET PO PRN (22:06)
[2018-01-12] MEDS: INSULIN DETEMIR 100 UNITS/ML MDV SQ SCH (22:07)
[2018-01-13] MEDS: SODIUM CHLORIDE 0.45% 1,000 ML IV SCH (01:30)
[2018-01-13] MEDS: DOCUSATE SODIUM 100 MG CAPSULE (FP) PO SCH ×2 (06:00→13:50)
[2018-01-13] MEDS: HEPARIN NA (PORCINE) 5,000 UNITS/ML 1ML VIAL SQ SCH ×2 (06:01→13:50)
[2018-01-13] MEDS: INSULIN SLIDING SCALE (NOVOLOG) 1 VIAL SQ SCH ×2 (06:01→12:31)
[2018-01-13 08:09] LABS: ANION GAP 11 (8-16); BLOOD UREA NITROGEN 19 mg/dL (7-18); CALCIUM 7.3 mg/dL (8.5-10.1); CHLORIDE 108 mmol/L (98-107); CO2 23 mmol/L (21-32); CREATININE 1.8 mg/dL (0.7-1.3); GLUCOSE,RANDOM 154 mg/dL (74-106); POTASSIUM 3.8 mmol/L (3.5-5.1); SODIUM 142 mmol/L (136-145)
[2018-01-13] MEDS: FERROUS SO4 325 MG TABLET (FP) PO SCH ×2 (08:24→12:54)
--- NOTE | 2018-01-13 09:58 | PN ---
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 Garcia. Patient was sent to the ED today after being seen at wound care for pain and swelling of his right hand , 2nd finger. stable overnight, afebrile. - Current Medication List Current Medications: Active Medications Acetaminophen (Tylenol -) 650 mg PO Q6H PRN PRN Reason: pain 4-6 Al Hydroxide/Mg Hydroxide (Mylanta Oral Suspension -) 30 ml PO Q6H PRN PRN Reason: INDIGESTION Last Admin: 01/09/18 09:44 Dose: 30 ml Amlodipine Besylate (Norvasc -) 5 mg PO DAILY [facility] Last Admin: 01/12/18 09:55 Dose: 5 mg Ascorbic Acid (Vitamin C -) 500 mg PO DAILY [facility] Last Admin: 01/12/18 09:55 Dose: 500 mg Clopidogrel Bisulfate (Plavix -) 75 mg PO DAILY [facility] Last Admin: 01/12/18 09:55 Dose: 75 mg Docusate Sodium (Colace -) 100 mg PO TID [facility] Last Admin: 01/13/18 06:00 Dose: Not Given Ferrous Sulfate (Feosol -) 325 mg PO TIDCM [facility] Last Admin: 01/13/18 08:24 Dose: 325 mg Heparin Sodium (Porcine) (Heparin -) 5,000 unit SQ TID [facility] Last Admin: 01/13/18 06:01 Dose: Not Given IV Flush (Picc Line Flush) 8 ml IVPUSH PRN PRN PRN Reason: Protocol Sodium Chloride (1/2 Normal Saline) 1,000 mls @ 75 mls/hr IV ASDIR [facility] Last Admin: 01/13/18 01:30 Dose: 75 mls/hr Vancomycin HCl 1,000 mg/ (Dextrose) 250 mls @ 250 mls/hr IVPB DAILY@1400 [facility] Last Admin: 01/12/18 13:55 Dose: 250 mls/hr CEFTRIAXONE 1 G/50 ML PREMIX (Ceftriaxone 1 Gm-D5w Bag) 50 mls @ 100 mls/hr IVPB DAILY [facility] Last Admin: 01/12/18 09:55 Dose: 100 mls/hr Insulin Aspart (Novolog Vial Sliding Scale -) 1 vial SQ ACHS [facility] PRN Reason: Protocol Last Admin: 01/13/18 06:01 Dose: Not Given Insulin Detemir (Levemir Vial) 12 units SQ HS [facility] Last Admin: 01/12/18 22:07 Dose: 12 units Pregabalin (Lyrica -) 100 mg PO BID [facility] Last Admin: 01/12/18 22:06 Dose: 100 mg Senna (Senna -) 1 tab PO HS [facility] Last Admin: 01/12/18 22:06 Dose: 1 tab Zolpidem Tartrate (Ambien -) 5 mg PO HS PRN PRN Reason: INSOMNIA Last Admin: 01/12/18 22:06 Dose: 5 mg - Objective Vital Signs: Vital Signs Temperature 98.1 F 01/13/18 08:50 Pulse Rate 94 H 01/13/18 08:50 Respiratory Rate 17 01/13/18 08:50 Blood Pressure 130/81 01/13/18 08:50 O2 Sat by Pulse Oximetry (%) 99 01/12/18 21:00 Vital Signs Period Temp Pulse Resp BP Sys/Snow Pulse Ox Last 24 Hr 97.6 F-99.2 F 64-94 17-20 130-151/61-81 99 Constitutional: Yes: No Distress, Calm, Obese Eyes: Yes: Conjunctiva Clear, EOM Intact HENT: Yes: Atraumatic, Normocephalic Neck: Yes: Supple, Trachea Midline Respiratory: Yes: Regular, CTA Bilaterally Gastrointestinal: Yes: Normal Bowel Sounds, Soft. No: Tenderness Extremities: No: Cool, Cyanosis Wound/Incision: Yes: Dressing Removed, Unapproximated Neurological: Yes: Alert, Oriented Psychiatric: Yes: Alert, Oriented Labs: CBC, BMP 01/09/18 07:30 01/13/18 06:30 Problem List - Problems (1) Abscess of finger Assessment/Plan: 67 yo male MMP including DM with right index finger abscess POD#4 s/p I&D and debridement of right index finger abscess, MRSA in culture. Agree with PICC and continued IV antibiotics Physical Therapy evaluation - Right hand active and passive ROM and strengthening exercises Daily wound care by . She should come in to learn how to do the dressing prior to discharge Wound Measurement: Dorsum of Right Index finger, 0.5cmX0.5cmX0.2cm with extensor tendon at the base Dressing Instrucstion: 11/06" iodoform packing, 4X4 gauze and kerlex with tape Right Arm elevation Adequate analgesia Code(s): L02.519 - CUTANEOUS ABSCESS OF UNSPECIFIED HAND (2) PVD (peripheral vascular disease) Code(s): I73.9 - PERIPHERAL VASCULAR DISEASE, UNSPECIFIED (3) Cellulitis Code(s): L03.90 - CELLULITIS, UNSPECIFIED Qualifiers: Site of cellulitis: unspecified site Qualified Code(s): L03.90 - Cellulitis , unspecified (4) Renal insufficiency Code(s): N28.9 - DISORDER OF KIDNEY AND URETER, UNSPECIFIED (5) Diabetic foot ulcer Code(s): E11.621 - TYPE 2 DIABETES MELLITUS WITH FOOT ULCER; L97.509 - NON- PRESSURE CHRONIC ULCER OTH PRT UNSP FOOT W UNSP SEVERITY
[2018-01-13] MEDS ORDERED: INSULIN (NOVOLOG) ASPART 100 UNITS/ML 10ML VIAL ONE (12:07)
[2018-01-13] MEDS: CEFTRIAXONE 1 G/50 ML PREMIX 50 ML IVPB SCH (12:13)
[2018-01-13] MEDS: ASCORBIC ACID 500 MG TABLET (FP) PO SCH (12:13)
[2018-01-13] MEDS: amLODIPine BESYLATE 5 MG TABLET (FP) PO SCH (12:13)
[2018-01-13] MEDS: PREGABALIN 100 MG CAPSULE PO SCH (12:13)
[2018-01-13] MEDS: CLOPIDOGREL BISULFATE 75 MG TABLET (FP) PO SCH (12:13)
--- NOTE | 2018-01-13 12:37 | DS ---
Physical Examination Vital Signs: Vital Signs Temperature 98.1 F 01/13/18 08:50 Pulse Rate 94 H 01/13/18 08:50 Respiratory Rate 17 01/13/18 08:50 Blood Pressure 130/81 01/13/18 08:50 O2 Sat by Pulse Oximetry (%) 99 01/12/18 21:00 HENT: Yes: WNL Neck: Yes: WNL, Supple Cardiovascular: Yes: WNL Respiratory: Yes: WNL, Regular, CTA Bilaterally Gastrointestinal: Yes: WNL, Normal Bowel Sounds, Soft Extremities: Yes: Other ((+) dressing right finger) Labs: CBC, BMP 01/09/18 07:30 01/13/18 06:30 Discharge Summary Reason For Visit: CELLULITIS OF RIGHT HAND Current Active Problems Abscess of finger (Acute) Abscess of finger of right hand (Acute) Cellulitis (Acute) Diabetes mellitus (Acute) PVD (peripheral vascular disease) (Acute) Renal insufficiency (Acute) Hospital Course: Pt is a 67 y/o male wo presented to the ER w/ cellulitis and abscess of his rt inex finger. Pt was started on IV antibxs and was followed by ID and hand surgeo. Pt was also followed by renal for ARF. Pt was taken to the OR for I&D of rt finger and has been receiving wound care. Wound cultures grew MR S Aureus and streptococcus pyogenes Pt is to conitnue IV Vanco for another 4 weeks and had PIC line placement. Patient is to follow up in [address] Dr Mcleod and to follow up with infectious disease Dr Frias [phone] Patient also to see Dr Joaquín Adam [phone] Patient is to have labs: CBC CMP and vanco trough levels twice a week while on antibiotis Wound care includes: 11/06" iodoform packing with 4 x 4 gauze and kerlex w/ tape Condition: Improved - Instructions Diet, Activity, Other Instructions: Postoperative instructions: You had an incision and drainage of right index finger abscess on 01/08/[address] Joaquín Mcleod of [facility]. Activity: Resume your usual activities gradually, but no heavy exertion or lifting more than 10-15 pounds for 4-6 weeks. Please keep you dressing clean and dry. Sutures will need be removed in 10-14 days. Eat lightly at first, but advance to your usual diet as tolerated. Pain: For pain, you may use and alternate Tylenol (acetaminophen) and/or ibuprofen every 6 hours each as needed; this means that you can take one OR the other at 3-hour intervals. If you are prescribed a Tylenol/narcotic combination for severe pain, use it instead of plain Tylenol as needed and switch back when your pain starts decreasing. Do not take more than 4000mg of acetaminophen in a day. Take medications as prescribed or indicated on the labeling. Follow-up: Call Dr. Mcleod' office at [phone] to make your postop appointment (Friday ~2 weeks after surgery as advised). Clinic is held in the [facility] on the first floor of [facility]. Call the office if you have: * increasing pain not responsive to pain medication * fever of 101F or higher * unusual or increasing bleeding or drainage from wounds * increasing redness or swelling at wound sites Also, see your primary medical doctor within 1-2 weeks. Referrals: Joaquín Adam MD [Primary Care Provider] - Disposition: HOME - Home Medications Comprehensive Discharge Medication List: Ambulatory Orders Collagenase Clostridium Hist. [Santyl] 1 applic TP DAILY #90 oint...g. 10/13/17 Aspirin Coated [Ecotrin -] 81 mg PO DAILY 11/18/17 Insulin Glargine/Lixisenatide [Soliqua 100 Unit-33 Mcg/ml Pen] 6 ml SQ ACBK Pregabalin [Lyrica] 100 mg PO BID 11/18/17 Clopidogrel Bisulfate [Plavix -] 75 mg PO DAILY #120 tablet MDD 1 11/19/17 Becaplermin [Regranex] 15 gm TP DAILY #1 gel..gram. 12/19/17 Zolpidem Tartrate [Ambien] 0 mg PO HS 01/06/18 Acetaminophen [Tylenol .Regular Strength -] 650 mg PO Q6H PRN #90 tablet Amlodipine Besylate [Norvasc -] 5 mg PO DAILY #30 tablet 01/13/18 Ascorbic Acid [Vitamin C -] 500 mg PO DAILY tablet 01/13/18 Ceftriaxone 1 G/50 ml Premix [Ceftriaxone 1 gm-D5w Bag] 1 ml IVPB DAILY #30 bag 01/13/18 Docusate Sodium [Colace -] 100 mg PO TID capsule 01/13/18 Ferrous Sulfate [Feosol] 325 mg PO TIDCM #90 ud 01/13/18 Mag Hydrox/Al Hydrox/Simeth [Mylanta Oral Suspension -] 30 ml PO Q6H PRN cup Picc Line Flush [Picc Line Flush -] 8 ml IVPUSH PRN PRN ml 01/13/18 Pregabalin [Lyrica -] 100 mg PO BID #60 capsule MDD 2 01/13/18 Vancomycin 1,000 mg IVPB DAILY@1400 #30 vial 01/13/18
--- NOTE | 2018-01-13 12:38 | PN ---
Progress Note (short form) - Note Progress Note: This was entered in error Problem List - Problems (1) Abscess of finger Code(s): L02.519 - CUTANEOUS ABSCESS OF UNSPECIFIED HAND (2) Renal insufficiency Code(s): N28.9 - DISORDER OF KIDNEY AND URETER, UNSPECIFIED (3) Cellulitis Code(s): L03.90 - CELLULITIS, UNSPECIFIED Qualifiers: Site of cellulitis: unspecified site Qualified Code(s): L03.90 - Cellulitis , unspecified (4) Diabetes mellitus Code(s): E11.9 - TYPE 2 DIABETES MELLITUS WITHOUT COMPLICATIONS
[2018-01-13] MEDS ORDERED: PT OWN MED DRAWER 7, Y5N ONE (13:24)
[2018-01-13] MEDS: VANCOMYCIN 1,000 MG in DEXTROSE 5%-WATER - 250 ML IVPB SCH (13:43)
[2018-01-13 14:48] VITALS: BP 153/76; PULSE 68; TEMP 98.5
--- NOTE | 2018-01-13 16:21 | PN ---
Progress Note, Physician History of Present Illness: Pt seen and examined at bedside. He is awake and alert. He had catheter placed for abx. - Current Medication List Current Medications: Active Medications Acetaminophen (Tylenol -) 650 mg PO Q6H PRN PRN Reason: pain 4-6 Al Hydroxide/Mg Hydroxide (Mylanta Oral Suspension -) 30 ml PO Q6H PRN PRN Reason: INDIGESTION Last Admin: 01/09/18 09:44 Dose: 30 ml Amlodipine Besylate (Norvasc -) 5 mg PO DAILY [facility] Last Admin: 01/13/18 12:13 Dose: 5 mg Ascorbic Acid (Vitamin C -) 500 mg PO DAILY [facility] Last Admin: 01/13/18 12:13 Dose: 500 mg Clopidogrel Bisulfate (Plavix -) 75 mg PO DAILY [facility] Last Admin: 01/13/18 12:13 Dose: 75 mg Docusate Sodium (Colace -) 100 mg PO TID [facility] Last Admin: 01/13/18 13:50 Dose: Not Given Ferrous Sulfate (Feosol -) 325 mg PO TIDCM [facility] Last Admin: 01/13/18 12:54 Dose: 325 mg Heparin Sodium (Porcine) (Heparin -) 5,000 unit SQ TID [facility] Last Admin: 01/13/18 13:50 Dose: Not Given IV Flush (Picc Line Flush) 8 ml IVPUSH PRN PRN PRN Reason: Protocol Sodium Chloride (1/2 Normal Saline) 1,000 mls @ 75 mls/hr IV ASDIR [facility] Last Admin: 01/13/18 01:30 Dose: 75 mls/hr Vancomycin HCl 1,000 mg/ (Dextrose) 250 mls @ 250 mls/hr IVPB DAILY@1400 [facility] Last Admin: 01/13/18 13:43 Dose: 250 mls/hr CEFTRIAXONE 1 G/50 ML PREMIX (Ceftriaxone 1 Gm-D5w Bag) 50 mls @ 100 mls/hr IVPB DAILY [facility] Last Admin: 01/13/18 12:13 Dose: 100 mls/hr Insulin Aspart (Novolog Vial Sliding Scale -) 1 vial SQ ACHS [facility] PRN Reason: Protocol Last Admin: 01/13/18 12:31 Dose: 4 units Insulin Detemir (Levemir Vial) 12 units SQ HS [facility] Last Admin: 01/12/18 22:07 Dose: 12 units Pregabalin (Lyrica -) 100 mg PO BID [facility] Last Admin: 01/13/18 12:13 Dose: 100 mg Senna (Senna -) 1 tab PO HS [facility] Last Admin: 01/12/18 22:06 Dose: 1 tab Zolpidem Tartrate (Ambien -) 5 mg PO HS PRN PRN Reason: INSOMNIA Last Admin: 01/12/18 22:06 Dose: 5 mg - Objective Vital Signs: Vital Signs Temperature 98.5 F 01/13/18 14:46 Pulse Rate 68 01/13/18 14:46 Respiratory Rate 22 01/13/18 14:46 Blood Pressure 153/76 01/13/18 14:46 O2 Sat by Pulse Oximetry (%) 97 01/13/18 09:00 Constitutional: Yes: Calm Eyes: Yes: Conjunctiva Clear HENT: Yes: Atraumatic Cardiovascular: Yes: S1, S2 Respiratory: Yes: CTA Bilaterally Gastrointestinal: Yes: Soft Genitourinary: Yes: WNL Wound/Incision: Yes: Dressing Dry and Intact Labs: CBC, BMP 01/09/18 07:30 01/13/18 06:30 Problem List - Problems (1) Cellulitis Code(s): L03.90 - CELLULITIS, UNSPECIFIED Qualifiers: Site of cellulitis: unspecified site Qualified Code(s): L03.90 - Cellulitis , unspecified (2) Renal insufficiency Code(s): N28.9 - DISORDER OF KIDNEY AND URETER, UNSPECIFIED (3) Diabetic foot ulcer Code(s): E11.621 - TYPE 2 DIABETES MELLITUS WITH FOOT ULCER; L97.509 - NON- PRESSURE CHRONIC ULCER OTH PRT UNSP FOOT W UNSP SEVERITY Assessment/Plan Current Medications Generic Name Dose Route Start Last Admin Trade Name Freq PRN Reason Stop Dose Admin Acetaminophen 650 mg 01/08/18 18:49 Tylenol - PO Q6H PRN pain 4-6 Al Hydroxide/Mg Hydroxide 30 ml 01/08/18 18:49 01/09/18 09:44 Mylanta Oral Suspension - PO 30 ml Q6H PRN Administration INDIGESTION Amlodipine Besylate 5 mg 01/09/18 10:45 01/13/18 12:13 Norvasc - PO 5 mg DAILY [facility] Administration Ascorbic Acid 500 mg 01/09/18 10:00 01/13/18 12:13 Vitamin C - PO 500 mg DAILY [facility] Administration Clopidogrel Bisulfate 75 mg 01/09/18 10:00 01/13/18 12:13 Plavix - PO 75 mg DAILY [facility] Administration Docusate Sodium 100 mg 01/09/18 01:00 01/13/18 13:50 Colace - PO Not Given TID [facility] Ferrous Sulfate 325 mg 01/09/18 12:00 01/13/18 12:54 Feosol - PO 325 mg TIDCM [facility] Administration Heparin Sodium (Porcine) 5,000 unit 01/08/18 22:00 01/13/18 13:50 Heparin - SQ Not Given TID [facility] IV Flush 8 ml 01/12/18 08:59 Picc Line Flush IVPUSH PRN PRN Protocol Sodium Chloride 1,000 mls @ 75 mls/hr 01/09/18 01:00 01/13/18 01:30 1/2 Normal Saline IV 75 mls/hr ASDIR [facility] Administration Vancomycin HCl 1,000 mg/ 250 mls @ 250 mls/hr 01/09/18 14:00 01/13/18 13:43 Dextrose IVPB 250 mls/hr DAILY@1400 [facility] Administration CEFTRIAXONE 1 G/50 ML PREMIX 50 mls @ 100 mls/hr 01/09/18 14:00 01/13/18 12: 13 Ceftriaxone 1 Gm-D5w Bag IVPB 100 mls/hr DAILY [facility] Administration Insulin Aspart 1 vial 01/08/18 22:00 01/13/18 12:31 Novolog Vial Sliding Scale - SQ 4 units ACHS [facility] Administration Protocol Insulin Detemir 12 units 01/09/18 22:00 01/12/18 22:07 Levemir Vial SQ 12 units HS [facility] Administration Pregabalin 100 mg 01/08/18 22:00 01/13/18 12:13 Lyrica - PO 100 mg BID [facility] Administration Senna 1 tab 01/11/18 10:45 01/12/18 22:06 Senna - PO 1 tab HS [facility] Administration Zolpidem Tartrate 5 mg 01/08/18 18:49 01/12/18 22:06 Ambien - PO 5 mg HS PRN Administration INSOMNIA Impression 1. MALIA 2. cellulitis 3. DM 4. PVD 5. insomnia 6. anemia 7. CKD Plan - will need outpt follow up - will have bmp and vanco levels checked as outpt - channel turner has been stable for last few days - cont fluids - cont wound care Dr Daniel
== END 2018-01-13 16:42 | disposition home or self-care (01) | DRG 580 ==
LOC: JER 12:21 → JERBED 16:41 → J5S 19:11 → OBSVTOIN 01-08 10:00
PROVIDERS: ADMIT Internal Medicine; ATTEND Internal Medicine
PROC: 0J9J0ZX Drainage of Right Hand Subcutaneous Tissue and Fascia, Open Approach, Diagnostic (ICD-10-PCS; 2018-01-08)
PROC: 0JBJ0ZZ Excision of Right Hand Subcutaneous Tissue and Fascia, Open Approach (ICD-10-PCS; principal; 2018-01-08 15:30)
PROC: 05HM33Z Insertion of Infusion Device into Right Internal Jugular Vein, Percutaneous Approach (ICD-10-PCS; 2018-01-13)
PROC: B513ZZA Fluoroscopy of Right Jugular Veins, Guidance (ICD-10-PCS; 2018-01-13)
DX: L02.511 Cutaneous abscess of right hand (principal); N17.9 Acute kidney failure, unspecified; E11.621 Type 2 diabetes mellitus with foot ulcer; I73.9 Peripheral vascular disease, unspecified; A49.02 Methicillin resistant Staphylococcus aureus infection, unspecified site; Z86.73 Personal history of transient ischemic attack (TIA), and cerebral infarction without residual deficits; G47.00 Insomnia, unspecified; N18.9 Chronic kidney disease, unspecified; E11.40 Type 2 diabetes mellitus with diabetic neuropathy, unspecified; D50.9 Iron deficiency anemia, unspecified; I25.10 Atherosclerotic heart disease of native coronary artery without angina pectoris; Z95.1 Presence of aortocoronary bypass graft; L03.011 Cellulitis of right finger; L97.509 Non-pressure chronic ulcer of other part of unspecified foot with unspecified severity
CPT/HCPCS: 36415; 36558; 71046-TC-FY; 73130-TC-RT-FY; 76775-TC; 77001-TC-FY; 80048; 80053; 81003; 81015; 82272; 82436; 82570; 82947; 82962; 83540; 83550; 84133; 84156; 84300; 84466; 85025; 85651; 86140; 87040; 87070; 87186; 87205; 90715; 93005; 93010; 94760; 97161-GP; 99283-25; C1751; G0277; G0378; G0480; J1644; J1756; J7030

== ENCOUNTER → 2018-02-19 | Day surgery (SDC) | payer OTHER, BC | END | disposition home or self-care (01) | LOC: JRADIR 13:07 | PROVIDERS: ATTEND Internal Medicine | PROC: 02PY03Z Removal of Infusion Device from Great Vessel, Open Approach (ICD-10-PCS; principal; 2018-02-19) | DX: Z45.2 Encounter for adjustment and management of vascular access device (principal) | CPT/HCPCS: 36589 ==

== ENCOUNTER 2019-07-19 19:34 | Inpatient (IN) | payer OTHER, BC ==
--- NOTE | 2019-07-19 20:38 | PDOC ---
History of Present Illness - General Chief Complaint: Lightheaded Stated Complaint: DIZZY Time Seen by Provider: 07/19/19 20:31 - History of Present Illness Initial Comments: 07/19/19 21:32 69 y/o M hx of CAD, s/p cabg,PAD s/p right carotid endarctetomy and stent placement, CVA, Diabetes( with insulin pump) bariatric surgery, presents to the ED with 1 week of nausea and vomiting. He saw his bariatric surgeon who saw him last week and did an endoscopy. He claims " inflammation was found" but reports no other findings.He has had approximately 2 episodes of non-bloody emesis a day with associated stomach cramping and burning preceding these episodes. the cramping pain is epigastric and subsides after emesis. He has had episodes of vertigo and lightheadedness on standing from sitting position for the last 4 days. He has fell a few days ago when he was going to the bathroom. He denies hitting his head, and fell on his buttocks. His last bowel movement was 3 days ago.He denies any fevers, chills, diarrhea, dysuria, hematuria, bloody stools. 07/19/19 23:10 Past History - Past Medical History Allergies/Adverse Reactions: Allergies Allergy/AdvReac Type Severity Reaction Status Date / Time levofloxacin [From Levaquin] Allergy Intermediate Verified 07/19/19 20:33 morphine Allergy Intermediate Vomiting Verified 07/19/19 20:33 codeine AdvReac Verified 07/19/19 20:33 Home Medications: Ambulatory Orders Aspirin Coated [Ecotrin -] 81 mg PO DAILY 11/18/17 Insulin Glargine/Lixisenatide [Soliqua 100 Unit-33 Mcg/ml Pen] 6 ml SQ ACBK Zolpidem Tartrate [Ambien] 10 mg PO HS 01/06/18 Acetaminophen [Tylenol .Regular Strength -] 650 mg PO Q6H PRN #90 tablet Docusate Sodium [Colace -] 100 mg PO TID capsule 01/13/18 Mag Hydrox/Al Hydrox/Simeth [Mylanta Oral Suspension -] 30 ml PO Q6H PRN cup Pregabalin [Lyrica -] 100 mg PO BID #60 capsule MDD 2 01/13/18 Cholecalciferol (Vitamin D3) [Vitamin D3] 10,000 unit PO WEEKLY 05/24/18 Glucosamine Chondroitin Tab 1 tablet PO BID 05/24/18 Prevacid 40 mg PO DAILY 05/24/18 Lisinopril 1 tab PO DAILY 04/19/19 Prednisone 10 mg PO BID #14 tablet 06/21/19 Anemia: No Asthma: No Cancer: No Cardiac Disorders: No CVA: Yes COPD: No CHF: No Dementia: No Diabetes: Yes GI Disorders: No Disorders: No HTN: Yes Hypercholesterolemia: No Liver Disease: No Seizures: No Thyroid Disease: No - Surgical History Abdominal Surgery: Yes Appendectomy: No Cardiac Surgery: Yes (quad bypass) Cholecystectomy: No Lung Surgery: No Neurologic Surgery: Yes (DDD) Orthopedic Surgery: Yes - Immunization History Immunization Up to Date: Yes - Suicide/Smoking/Psychosocial Hx Smoking History: Former smoker Have you smoked in the past 12 months: No If you are a former smoker, when did you quit?: 25 years ago Hx Alcohol Use: No Drug/Substance Use Hx: No Substance Use Type: None Hx Substance Use Treatment: No Review of Systems - Review of Systems Constitutional: No: Chills, Fever, Loss of Appetite HEENTM: No: Eye Pain, Recent change in vision Respiratory: No: Cough, Shortness of Breath Cardiac (ROS): No: Chest Pain ABD/GI: Yes: Symptoms Reported : No: Burning, Dysuria Musculoskeletal: No: Back Pain, Joint Pain Integumentary: Yes: Pruritus Neurological: No: Headache, Tingling, Dizziness *Physical Exam - Physical Exam General Appearance: Yes: Nourished, Appropriately Dressed. No: Apparent Distress HEENT: positive: EOMI. negative: Scleral Icterus (R), Scleral Icterus (L) Neck: positive: Trachea midline, Supple. negative: Tender Respiratory/Chest: positive: Lungs Clear, Normal Breath Sounds. negative: Chest Tender, Respiratory Distress, Accessory Muscle Use Cardiovascular: positive: Regular Rhythm, Regular Rate, S1, S2. negative: JVD Gastrointestinal/Abdominal: positive: Normal Bowel Sounds, Soft, Guarding (in the RLQ and epigastric area), Tenderness (sligh bulge palpated slightly superior to the umbilicus) Musculoskeletal: positive: Normal Inspection. negative: CVA Tenderness Extremity: positive: Normal Capillary Refill, Normal Inspection, Normal Range of Motion, Other (diminished sensation on left lower leg from calf downwards. stasis dermatitis on that portion of affected leg. Not a new finding, hx of venous insufficiency) Neurologic: positive: president celebrity acquistion II-XII NML intact, Fully Oriented, Alert, Normal Mood/ Affect ED Treatment Course - LABORATORY CBC & Chemistry Diagram: 07/19/19 21:30 07/19/19 21:30 Medical Decision Making - Medical Decision Making 07/19/19 21:53 69 y/o M hx of CAD, s/p cabg,PAD s/p right carotid endarctetomy and stent placement, CVA, Diabetes( with insulin pump) bariatric surgery, presents to the ED with 1 week of nausea and vomiting. cbc, cmp, ua ekg, troponin, cmp, pending cmp results, CT abdomen and pelvis with IV contrast. Troponin at 0.3 repeat in 3hours BUN/Cr elevated pt will get CT with oral contrast. Pt. signed out to Dr. Natarajan 07/20/19 00:06 *DC/Admit/Observation/Transfer Diagnosis at time of Disposition: Nausea & vomiting Qualifiers: Vomiting type: unspecified Vomiting Intractability: unspecified Qualified Code( s): R11.2 - Nausea with vomiting, unspecified - Referrals Referrals: Joaquín Adam MD [Primary Care Provider] - - Patient Instructions - Post Discharge Activity
[2019-07-19] MEDS ORDERED: SODIUM CHLORIDE 1,000 ML IV STA ×2 (21:08→23:48)
[2019-07-19] MEDS ORDERED: FAMOTIDINE 20 MG/50 ML IVPB 20 MG/50 ML MG IVPB ONE ×2 (21:08→21:43)
[2019-07-19] MEDS ORDERED: ONDANSETRON 4 MG/2 ML VIAL IVPB ONE (21:08)
[2019-07-19] MEDS ORDERED: ONDANSETRON 4 MG/2 ML VIAL ONE (21:42)
[2019-07-19 22:06] LABS: BASO % 1.1 % (0-2.0); EOS % 1.7 % (0-4.5); HEMATOCRIT 36.1 % (35.4-49); HEMOGLOBIN 11.4 GM/dL (11.7-16.9); LYMPH % 15.5 % (8-40); MCH 25.9 pg (25.7-33.7); MCHC 31.7 g/dl (32.0-35.9); MEAN CELL VOLUME 81.6 fl (80-96); MEAN PLT VOLUME 9.6 fl (7.5-11.1); MONO % 8.3 % (3.8-10.2); NEUT % 73.4 % (42.8-82.8); PLATELET COUNT 273 K/MM3 (134-434); RBC 4.42 M/mm3 (4.00-5.60); WHITE BLOOD COUNT 7.2 K/mm3 (4.0-10.0)
[2019-07-19 22:34] LABS: ALBUMIN 2.8 g/dl (3.4-5.0); BILIRUBIN,TOTAL 0.3 mg/dL (0.2-1); BLOOD UREA NITROGEN 30.8 mg/dL (7-18); CALCIUM 11.1 mg/dL (8.5-10.1); CREATININE 3.4 mg/dL (0.55-1.3); POTASSIUM 3.7 mmol/L (3.5-5.1); TOT PROT 5.8 g/dl (6.4-8.2)
--- NOTE | 2019-07-19 22:47 | PDOC ---
Attending Attestation - Resident Resident Name: Estephanie Chaves - ED Attending Attestation I have performed the following: I have examined & evaluated the patient, The case was reviewed & discussed with the resident, I agree w/resident's findings & plan, Exceptions are as noted - HPI HPI: 07/19/19 22:41 69 yo male h/;o htn, dm insulin pump, cad, cabg, bariatric surgery (sleeve) here with c/o intermittent nausea vomiting. for one week. pt states she has had it off and on every since his surgery 1.5 yrs ago. denies f/c does have lower abd pain. no cp no other complaints. saw his surgeon at [facility] 5 days ago,had recent endoscopy was feeling lightheaded and fagiue, generalized weakness had fall few days ago out of weakness. no melena, no dark stool, last bm 3 days ago, normal. - Physicial Exam PE: 07/19/19 22:43 awake alert nad lungs clear bilat heart reg rate Rythm, no mrg abd soft pump in place. no palp hernia. rlq ttp. no rebound no guarding. ext wwp no edema. no calf tenderness. alert oriented x 3. - Medical Decision Making 07/19/19 22:46 69 yo male h/o bariatric surg, dm htn cabg here with c/o n/v abd pain. differential obstruction, electrolyte abnormality, appendicitis, hyponatremia, renal failure, uti. plan ct a/p labs iv hydration antiemetics, ekg. 07/20/19 00:04 pt with MALIA creatinine 3.[address] a/p pending without iv contrast. oral only.
[2019-07-19] MEDS ORDERED: oxyCODONE HCL 5 MG TABLET PO ONE (23:21)
[2019-07-19] MEDS ORDERED: GABAPENTIN 300 MG CAPSULE (FP) PO ONE (23:21)
--- NOTE | 2019-07-20 01:52 | PDOC ---
*Physical Exam - Vital Signs Last Vital Signs Temp Pulse Resp BP Pulse Ox 98.4 F 84 19 98/64 100 07/19/19 20:31 07/19/19 20:31 07/19/19 20:31 07/19/19 20:31 07/19/19 20:31 ED Treatment Course - LABORATORY CBC & Chemistry Diagram: 07/19/19 21:30 07/19/19 21:30 - ADDITIONAL ORDERS Additional order review: Laboratory Results 07/19/19 07/19/19 21:30 21:30 Sodium 141 Potassium 3.7 Chloride 102 Carbon Dioxide 34 H Anion Gap 6 L BUN 30.8 H Creatinine 3.4 H Est GFR (CKD-EPI)AfAm 20.04 Est GFR (CKD-EPI)NonAf 17.29 Random Glucose 220 H Calcium 11.1 H Total Bilirubin 0.3 AST 14 L ALT 13 Alkaline Phosphatase 57 Creatine Kinase 128 Troponin I 0.30 H Total Protein 5.8 L Albumin 2.8 L Lipase 196 07/19/19 21:30 RBC 4.42 MCV 81.6 MCHC 31.7 L RDW 15.0 D MPV 9.6 Neutrophils % 73.4 Lymphocytes % 15.5 Monocytes % 8.3 D Eosinophils % 1.7 Basophils % 1.1 - Medications Given in the ED: ED Medications Discontinued Medications Generic Name Dose Route Start Last Admin Trade Name Melissa PRN Reason Stop Dose Admin Diphenhydramine HCl 12.5 mg 07/19/19 22:26 07/19/19 22:58 Benadryl Injection - IVPUSH 07/19/19 22:27 12.5 mg ONCE ONE Administration Famotidine/Sodium Chloride 20 mg in 50 mls @ 100 mls/hr 07/19/19 21:08 21:55 Pepcid 20 Mg Premixed Ivpb - IVPB 07/19/19 21:37 100 mls/hr ONCE ONE Administration Sodium Chloride 1,000 mls @ 1,000 mls/hr 07/19/19 21:08 07/19/19 21:55 Normal Saline - IV 07/19/19 22:07 1,000 mls/hr ASDIR STA Administration Sodium Chloride 1,000 mls @ 1,000 mls/hr 07/19/19 23:48 07/20/19 00:35 Normal Saline - IV 07/20/19 00:47 1,000 mls/hr ASDIR STA Administration Ondansetron HCl 4 mg 07/19/19 21:08 07/19/19 21:56 Zofran Injection IVPB 07/19/19 21:09 4 mg ONCE ONE Administration Medical Decision Making - Medical Decision Making 07/20/19 01:38 Sign out received. Benji Red is a 69yo man with a PMH of CAD s/p CABG, PAD, carotid stenosis s/p Rt CEA, IDDM with insulin pump, CVA, obesity s/p bariatric surgery who presented to the ED with one week of nausea and vomiting, now w/ 4 days of dizziness upon standing. He did see his surgeon and had an endoscopy showing "inflammation." He denies fevers/chills, dysuria, melena, but does endorse 3 days of constipation. ED course so far notable for: - Labs notable for MALIA, Cr 3.7 and trop 0.30 - CT abd/pelvis with PO contrast ordered. Currently being completed - IVF for MALIA - Repeat trop at 3hrs - Pt currently at CT, will evaluate when he returns 07/20/19 04:04 - CT without obstruction, colitis, free air, free fluid - Repeat trop elevated to 0.36 - Plan to admit to trend trop and for MALIA - Dr Avila called by Dr Bonner. Will accept to telemetry. Discussed with Dr Britton. Joellen Natarajan PGY2 *DC/Admit/Observation/Transfer Diagnosis at time of Disposition: MALIA (acute kidney injury), Elevated troponin Nausea & vomiting Qualifiers: Vomiting type: unspecified Vomiting Intractability: unspecified Qualified Code( s): R11.2 - Nausea with vomiting, unspecified - Discharge Dispostion Decision to Admit order: Yes - Referrals Referrals: Joaquín Adam MD [Primary Care Provider] - - Patient Instructions - Post Discharge Activity
[2019-07-20 03:24] LABS: EPI CELLS 2.8 /HPF (0-5/HPF); HYALINE CASTS 9 /lpf (0-8); PH,URINE 7.5 (5.0-8.0); URINE APPEARANCE CLEAR; URINE BACTERIA 1.5 /hpf (NEGATIVE); URINE BILIRUBIN NEGATIVE (NEGATIVE); URINE COLOR YELLOW; URINE GLUCOSE (UA) 1+ (NEGATIVE); URINE KETONE NEGATIVE (NEGATIVE); URINE LEUK ESTERASE NEGATIVE (NEGATIVE); URINE NITRITE NEGATIVE (NEGATIVE); URINE PROTEIN 4+ (NEGATIVE); URINE RBC 1 /hpf (0-4); URINE UROBILINOGEN 0.2 mg/dL (0.2-1.0); URINE WBC 2 /hpf (0-5)
[2019-07-20] MEDS ORDERED: ZOLPIDEM TARTRATE 5 MG TABLET PO ONE (04:30)
[2019-07-20] MEDS ORDERED: ZOLPIDEM TARTRATE 5 MG TABLET ONE (04:58)
--- NOTE | 2019-07-20 10:47 | EKG ---
Test Reason : Blood Pressure : / mmHG Vent. Rate : 073 BPM Atrial Rate : 073 BPM P-R Int : 172 ms QRS Dur : 102 ms QT Int : 380 ms P-R-T Axes : 019 005 267 degrees QTc Int : 418 ms NORMAL SINUS RHYTHM INCOMPLETE RIGHT BUNDLE BRANCH BLOCK ANTERIOR INFARCT , AGE UNDETERMINED ABNORMAL ECG WHEN COMPARED WITH ECG OF 24-MAY-2018 06:59, VENT. RATE HAS DECREASED BY 44 BPM QRS AXIS SHIFTED LEFT T WAVE INVERSION NOW EVIDENT IN INFERIOR LEADS T WAVE INVERSION NOW EVIDENT IN ANTEROLATERAL LEADS Confirmed by MD Cruz, Garrett ([id number]) on 07/20/2019 10:46:31 AM Referred By: Confirmed By:Garrett Arroyo MD
[2019-07-20] MEDS ORDERED: DEXTROSE 5%-0.45% SALINE 1,000 ML IV SCH (15:45)
--- NOTE | 2019-07-20 17:50 | CONSULT ---
Consult Consult Specialty:: Nephrology Reason for Consultation:: MALIA - History of Present Illness Chief Complaint: nausea and vomiting History of Present Illness: Pt is a 69 year old male with pmhx of HTN, DM, CKD, proteinuria, CABG, and cad who presents to the ER with nausea and vomiting for the last week. He was found to have elevated creatinine and I was called to evaluate him. He denies shortness of breath or chest pain. He denies fevers or chills. He denies dysuria or hematuria. He has not followed in the office in quite some time. He has proteinuria. - History Source History Provided By: Patient, Medical Record - Past Medical History SKATE HOP: Yes: CVA Cardio/Vascular: Yes: CAD, Other Renal/: Yes: Renal Failure (? baseline creatinine, elevated on this admission) , Renal Inusuff Infectious Disease: Yes: MRSA (Lt finger abscess) Endocrine: Yes: Diabetes Mellitus Dermatology: Yes: Cellulitis - Past Surgical History Past Surgical History: Yes: Bariatric Surgery (gastric sleeve ), CABG (about 2 years ago) - Alcohol/Substance Use Hx Alcohol Use: No History of Substance Use: reports: None - Smoking History Smoking history: Former smoker Have you smoked in the past 12 months: No If you are a former smoker, when did you quit?: 25 years ago - Social History ADL: Independent History of Recent Travel: No Home Medications - Allergies Allergies/Adverse Reactions: Allergies Allergy/AdvReac Type Severity Reaction Status Date / Time levofloxacin [From Levaquin] Allergy Intermediate Verified 07/19/19 20:33 morphine Allergy Intermediate Vomiting Verified 07/19/19 20:33 codeine AdvReac Verified 07/19/19 20:33 - Home Medications Home Medications: Ambulatory Orders Aspirin Coated [Ecotrin -] 81 mg PO DAILY 11/18/17 Insulin Glargine/Lixisenatide [Soliqua 100 Unit-33 Mcg/ml Pen] 6 ml SQ ACBK Zolpidem Tartrate [Ambien] 10 mg PO HS 01/06/18 Acetaminophen [Tylenol .Regular Strength -] 650 mg PO Q6H PRN #90 tablet Docusate Sodium [Colace -] 100 mg PO TID capsule 01/13/18 Mag Hydrox/Al Hydrox/Simeth [Mylanta Oral Suspension -] 30 ml PO Q6H PRN cup Cholecalciferol (Vitamin D3) [Vitamin D3] 10,000 unit PO WEEKLY 05/24/18 Glucosamine Chondroitin Tab 1 tablet PO BID 05/24/18 Prevacid 40 mg PO DAILY 05/24/18 Lisinopril 1 tab PO DAILY 04/19/19 Duloxetine HCl 40 mg PO DAILY 07/20/19 Pregabalin [Lyrica -] 50 mg PO BID MDD 2 07/20/19 Family Disease History - Family Disease History Family Disease History: Diabetes: Father, CA: Mother (breast with mets unclear wehre ) Review of Systems - Review of Systems Constitutional: reports: Malaise. denies: Chills Eyes: reports: No Symptoms HENT: reports: No Symptoms Neck: reports: No Symptoms Cardiovascular: reports: No Symptoms Gastrointestinal: reports: Abdominal Pain, Indigestion, Vomiting Genitourinary: reports: No Symptoms Musculoskeletal: reports: No Symptoms Integumentary: reports: No Symptoms Neurological: reports: No Symptoms Endocrine: reports: No Symptoms Hematology/Lymphatic: reports: No Symptoms Psychiatric: reports: No Symptoms Physical Exam Vital Signs: Vital Signs Temperature 97.6 F 07/20/19 11:44 Pulse Rate 68 07/20/19 11:44 Respiratory Rate 16 07/20/19 07:12 Blood Pressure 140/76 07/20/19 11:44 O2 Sat by Pulse Oximetry (%) 95 07/20/19 07:12 Constitutional: Yes: Calm Eyes: Yes: Conjunctiva Clear HENT: Yes: Atraumatic Neck: Yes: Supple Cardiovascular: Yes: S1, S2 Respiratory: Yes: CTA Bilaterally Gastrointestinal: Yes: Normal Bowel Sounds, Soft Renal/: Yes: WNL Musculoskeletal: Yes: WNL Edema: LLE: Trace, RLE: Trace Neurological: Yes: Oriented Psychiatric: Yes: Oriented Labs: CBC, BMP 07/19/19 21:30 07/19/19 21:30 Laboratory Tests 01/13/18 05/24/18 05/25/18 06:30 06:58 06:00 Creatinine 1.8 H 3.1 H 3.1 H Urine Protein Urine Blood Myeloperoxidase Ab Double Strand DNA Ab Glomerular Base Memb Ab 05/26/18 05/26/18 05/26/18 06:00 06:00 06:00 Creatinine 2.7 H Urine Protein Urine Blood Myeloperoxidase Ab Pending Double Strand DNA Ab 1 Glomerular Base Memb Ab Pending 05/27/18 07/19/19 07/20/19 06:00 21:30 01:00 Creatinine 2.2 H 3.4 H Urine Protein 4+ H Urine Blood Trace Myeloperoxidase Ab Double Strand DNA Ab Glomerular Base Memb Ab Imaging - Results Cat Scan: Report Reviewed Problem List - Problems (1) Acute kidney injury Code(s): N17.9 - ACUTE KIDNEY FAILURE, UNSPECIFIED Assessment/Plan Current Medications Generic Name Dose Route Start Last Admin Trade Name Freq PRN Reason Stop Dose Admin Aspirin 81 mg 07/21/19 10:00 Ecotrin - PO DAILY LINDA Docusate Sodium 100 mg 07/20/19 22:00 Colace - PO TID LINDA Duloxetine HCl 40 mg 07/20/19 15:45 Cymbalta - PO DAILY [facility] Heparin Sodium (Porcine) 5,000 unit 07/20/19 22:00 Heparin - SQ BID LINDA Dextrose/Sodium Chloride 1,000 mls @ 75 mls/hr 07/20/19 15:45 07/20/19 16:40 D5-1/2ns - IV 75 mls/hr ASDIR LINDA Administration Insulin Aspart 1 vial 07/20/19 16:30 Novolog Vial Sliding Scale - SQ ACHS [facility] Protocol Lisinopril 10 mg 07/21/19 10:00 Prinivil PO DAILY LINDA Pregabalin 50 mg 07/20/19 22:00 Lyrica - PO BID LINDA Zolpidem Tartrate 5 mg 07/20/19 15:37 Ambien - PO HS PRN INSOMNIA Impression 1. MALIA 2. vomiting 3. DM 4. PVD 5. insomnia 6. anemia 7. CKD 8. proteinuria 9. non compliance 10. bladder diverticulum Plan - change fluids from d51/2 to 1/2 - repeat labs in am - check ua and lytes - pt is not compliant with outpt follow up - check prt to sleever ratio
[2019-07-20] MEDS: DULoxetine HCL 20 MG CAPSULE.DR PO SCH (18:00)
[2019-07-20] MEDS ORDERED: SODIUM CHLORIDE 0.45% 1,000 ML IV SCH (18:00)
[2019-07-20] MEDS: INSULIN SLIDING SCALE (NOVOLOG) 1 VIAL SQ SCH ×2 (18:35→22:55)
[2019-07-20] MEDS ORDERED: LISINOPRIL 10 MG TABLET (FP) PO ONE (21:45)
[2019-07-20] MEDS: PREGABALIN 50 MG CAPSULE PO SCH (22:55)
[2019-07-20] MEDS: DOCUSATE SODIUM 100 MG CAPSULE (FP) PO SCH (22:55)
[2019-07-20] MEDS: ZOLPIDEM TARTRATE 5 MG TABLET PO PRN (22:55)
[2019-07-20] MEDS: HEPARIN NA (PORCINE) 5,000 UNITS/ML 1ML VIAL SQ SCH (22:55)
[2019-07-20 23:24] LABS: EPI CELLS 1.3 /HPF (0-5/HPF); HYALINE CASTS 3 /lpf (0-8); URINE APPEARANCE CLEAR; URINE BACTERIA 0.5 /hpf (NEGATIVE); URINE BILIRUBIN NEGATIVE (NEGATIVE); URINE COLOR YELLOW; URINE GLUCOSE (UA) TRACE (NEGATIVE); URINE KETONE NEGATIVE (NEGATIVE); URINE LEUK ESTERASE NEGATIVE (NEGATIVE); URINE NITRITE NEGATIVE (NEGATIVE); URINE PROTEIN 3+ (NEGATIVE); URINE RBC 1 /hpf (0-4); URINE UROBILINOGEN 0.2 mg/dL (0.2-1.0); URINE WBC 1 /hpf (0-5)
--- NOTE | 2019-07-20 23:45 | HP ---
Admitting History and Physical - Admission History of Present Illness: Pt is a 69 y/o male w/ PMH significant for CAD(s/p cabg), PAD, carotid stenosis (s/p right carotid endarctetomy), CVA, diabetes( with insulin pump), CKD, HTN and bariatric surgery few months ago. Pt now presents to the ER with 1 week of nausea and vomiting. He saw his bariatric surgeon last week and did an endoscopy. He was told that he had inflammation and was put on 3 medications( prevacid and antibx). He has had approximately 2 episodes of non-bloody emesis a day with associated stomach cramping wc is epigastric and sensation of burning with these episodes. He has had episodes of vertigo and lightheadedness on standing from sitting position for the last 4 days. He has fell a few days ago when he was going to the bathroom. He denies hitting his head, and fell on his buttocks. His last bowel movement was 3 days ago. In the ER pt found to have elevated creatinine and troponin. 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 baseline creatinine, elevated on this admission) , Renal Inusuff Infectious Disease: Yes: MRSA (Lt finger abscess) Endocrine: Yes: Diabetes Mellitus Dermatology: Yes: Cellulitis - Past Surgical History Past Surgical History: Yes: Bariatric Surgery (gastric sleeve ), CABG (about 2 years ago), Carotid Endarterectomy - Smoking History Smoking history: Former smoker Have you smoked in the past 12 months: No If you are a former smoker, when did you quit?: 25 years ago - Alcohol/Substance Use Hx Alcohol Use: No History of Substance Use: reports: None - Social History ADL: Independent History of Recent Travel: No Home Medications - Allergies Allergies/Adverse Reactions: Allergies Allergy/AdvReac Type Severity Reaction Status Date / Time levofloxacin [From Levaquin] Allergy Intermediate Verified 07/19/19 20:33 morphine Allergy Intermediate Vomiting Verified 07/19/19 20:33 codeine AdvReac Verified 07/19/19 20:33 - Home Medications Home Medications: Ambulatory Orders Aspirin Coated [Ecotrin -] 81 mg PO DAILY 11/18/17 Insulin Glargine/Lixisenatide [Soliqua 100 Unit-33 Mcg/ml Pen] 6 ml SQ ACBK Zolpidem Tartrate [Ambien] 10 mg PO HS 01/06/18 Acetaminophen [Tylenol .Regular Strength -] 650 mg PO Q6H PRN #90 tablet Docusate Sodium [Colace -] 100 mg PO TID capsule 01/13/18 Mag Hydrox/Al Hydrox/Simeth [Mylanta Oral Suspension -] 30 ml PO Q6H PRN cup Cholecalciferol (Vitamin D3) [Vitamin D3] 10,000 unit PO WEEKLY 05/24/18 Glucosamine Chondroitin Tab 1 tablet PO BID 05/24/18 Prevacid 40 mg PO DAILY 05/24/18 Lisinopril 1 tab PO DAILY 04/19/19 Duloxetine HCl 40 mg PO DAILY 07/20/19 Pregabalin [Lyrica -] 50 mg PO BID MDD 2 07/20/19 Family Disease History - Family Disease History Family History: Unremarkable Family Disease History: Diabetes: Father, CA: Mother (breast with mets unclear wehre ) Review of Systems - Review of Systems Constitutional: reports: Loss of Appetite, Weakness Eyes: reports: No Symptoms HENT: reports: No Symptoms Neck: reports: No Symptoms Cardiovascular: reports: No Symptoms Respiratory: reports: No Symptoms Gastrointestinal: reports: Abdominal Pain, Nausea, Vomiting Genitourinary: reports: No Symptoms Physical Examination Vital Signs: Vital Signs Temperature 98.4 F 07/20/19 18:44 Pulse Rate 77 07/20/19 18:44 Respiratory Rate 12 07/20/19 18:44 Blood Pressure 147/63 07/20/19 18:44 O2 Sat by Pulse Oximetry (%) 98 07/20/19 18:44 Constitutional: Yes: Well Nourished Eyes: Yes: WNL HENT: Yes: WNL Neck: Yes: WNL, Supple Cardiovascular: Yes: WNL, Regular Rate and Rhythm Respiratory: Yes: WNL, Regular, CTA Bilaterally Gastrointestinal: Yes: WNL, Normal Bowel Sounds, Soft Musculoskeletal: Yes: WNL Extremities: Yes: WNL Edema: No Neurological: Yes: WNL, Alert, Oriented ...Motor Strength: WNL Labs: CBC, BMP 07/19/19 21:30 07/19/19 21:30 Problem List - Problems (1) Elevated troponin Assessment/Plan: Cont to trend cpk/troponin Cardio consult Check echo Code(s): R74.8 - ABNORMAL LEVELS OF OTHER SERUM ENZYMES (2) ARF (acute renal failure) Assessment/Plan: Cont IVF ?Due to dehydration from N/V Renal consult Code(s): N17.9 - ACUTE KIDNEY FAILURE, UNSPECIFIED (3) Nausea & vomiting Assessment/Plan: Now resolved Cont to monitor Code(s): R11.2 - NAUSEA WITH VOMITING, UNSPECIFIED Qualifiers: Vomiting type: unspecified Vomiting Intractability: unspecified Qualified Code(s): R11.2 - Nausea with vomiting, unspecified (4) Diabetes mellitus Assessment/Plan: Cont sliding scale w/ coverage Code(s): E11.9 - TYPE 2 DIABETES MELLITUS WITHOUT COMPLICATIONS (5) Hyperlipidemia Assessment/Plan: Cont lipitor Code(s): E78.5 - HYPERLIPIDEMIA, UNSPECIFIED (6) Hypertension Assessment/Plan: BP stable Cont lisinopril/hctz Code(s): I10 - ESSENTIAL (PRIMARY) HYPERTENSION
[2019-07-21 00:52] LABS: RATIO URIN PROTEIN/URIN CREAT 5.25 MG/DL
[2019-07-21 03:42] VITALS: BMI 31.6
[2019-07-21 06:20] LABS: HEMOGLOBIN 9.9 GM/dL (11.7-16.9)
[2019-07-21] MEDS: DOCUSATE SODIUM 100 MG CAPSULE (FP) PO SCH ×3 (06:39→22:03)
[2019-07-21] MEDS: INSULIN SLIDING SCALE (NOVOLOG) 1 VIAL SQ SCH ×4 (06:39→22:01)
[2019-07-21 06:49] LABS: ALBUMIN 2.5 g/dl (3.4-5.0); BILIRUBIN,TOTAL 0.3 mg/dL (0.2-1); CALCIUM 8.6 mg/dL (8.5-10.1); CREATININE 3.5 mg/dL (0.55-1.3); POTASSIUM 3.1 mmol/L (3.5-5.1); TOT PROT 5.2 g/dl (6.4-8.2)
[2019-07-21 06:53] LABS: BASO % 0.9 % (0-2.0); EOS % 4.4 % (0-4.5); HEMATOCRIT 30.4 % (35.4-49); LYMPH % 22.5 % (8-40); MCH 26.3 pg (25.7-33.7); MCHC 32.4 g/dl (32.0-35.9); MEAN CELL VOLUME 81.1 fl (80-96); MONO % 7.8 % (3.8-10.2); NEUT % 64.4 % (42.8-82.8); PLATELET COUNT 229 K/MM3 (134-434); RBC 3.75 M/mm3 (4.00-5.60); RDW 14.8 % (11.9-15.9); WHITE BLOOD COUNT 5.3 K/mm3 (4.0-10.0)
[2019-07-21] MEDS: HEPARIN NA (PORCINE) 5,000 UNITS/ML 1ML VIAL SQ SCH ×2 (09:05→22:02)
[2019-07-21] MEDS: ASPIRIN COATED 81 MG TABLET.EC PO SCH (09:05)
[2019-07-21] MEDS: PREGABALIN 50 MG CAPSULE PO SCH ×2 (09:06→22:03)
[2019-07-21] MEDS: DULoxetine HCL 20 MG CAPSULE.DR PO SCH (09:06)
[2019-07-21] MEDS: LISINOPRIL 10 MG TABLET (FP) PO SCH (09:06)
--- NOTE | 2019-07-21 11:50 | CON.CARD ---
Consult Consult Specialty:: Cardiology - History of Present Illness History of Present Illness: 69 yo male h/;o htn, dm insulin pump, cad, cabg, bariatric surgery (sleeve) here with c/o intermittent nausea vomiting. for one week. pt states she has had it off and on every since his surgery 1.5 yrs ago. denies f/c does have lower abd pain. no cp no other complaints. saw his surgeon at [facility] 5 days ago,had recent endoscopy was feeling lightheaded and fagiue, generalized weakness had fall few days ago out of weakness. no melena, no dark stool, last bm 3 days ago, normal. 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 baseline creatinine, elevated on this admission) , Renal Inusuff Infectious Disease: Yes: MRSA (Lt finger abscess) Endocrine: Yes: Diabetes Mellitus Dermatology: Yes: Cellulitis - Past Surgical History Past Surgical History: Yes: Bariatric Surgery (gastric sleeve ), CABG (about 2 years ago) - Alcohol/Substance Use Hx Alcohol Use: No History of Substance Use: reports: None - Smoking History Smoking history: Former smoker Have you smoked in the past 12 months: No If you are a former smoker, when did you quit?: 25 years ago - Social History ADL: Independent History of Recent Travel: No Home Medications - Allergies Allergies/Adverse Reactions: Allergies Allergy/AdvReac Type Severity Reaction Status Date / Time levofloxacin [From Levaquin] Allergy Intermediate Verified 07/19/19 20:33 morphine Allergy Intermediate Vomiting Verified 07/19/19 20:33 codeine AdvReac Verified 07/19/19 20:33 - Home Medications Home Medications: Ambulatory Orders Aspirin Coated [Ecotrin -] 81 mg PO DAILY 11/18/17 Insulin Glargine/Lixisenatide [Soliqua 100 Unit-33 Mcg/ml Pen] 6 ml SQ ACBK Zolpidem Tartrate [Ambien] 10 mg PO HS 01/06/18 Acetaminophen [Tylenol .Regular Strength -] 650 mg PO Q6H PRN #90 tablet Docusate Sodium [Colace -] 100 mg PO TID capsule 01/13/18 Mag Hydrox/Al Hydrox/Simeth [Mylanta Oral Suspension -] 30 ml PO Q6H PRN cup Cholecalciferol (Vitamin D3) [Vitamin D3] 10,000 unit PO WEEKLY 05/24/18 Glucosamine Chondroitin Tab 1 tablet PO BID 05/24/18 Prevacid 40 mg PO DAILY 05/24/18 Lisinopril 1 tab PO DAILY 04/19/19 Duloxetine HCl 40 mg PO DAILY 07/20/19 Pregabalin [Lyrica -] 50 mg PO BID MDD 2 07/20/19 Family Disease History - Family Disease History Family Disease History: Diabetes: Father, CA: Mother (breast with mets unclear wehre ) Review of Systems - Review of Systems Constitutional: reports: No Symptoms Eyes: reports: No Symptoms HENT: reports: No Symptoms Neck: reports: No Symptoms Cardiovascular: reports: No Symptoms Gastrointestinal: reports: No Symptoms Genitourinary: reports: No Symptoms Breasts: reports: No Symptoms Reported Musculoskeletal: reports: No Symptoms Integumentary: reports: No Symptoms Neurological: reports: No Symptoms Endocrine: reports: No Symptoms Hematology/Lymphatic: reports: No Symptoms Psychiatric: reports: No Symptoms Vital Signs: Vital Signs Temperature 98.2 F 07/21/19 10:41 Pulse Rate 78 07/21/19 08:47 Respiratory Rate 16 07/21/19 08:47 Blood Pressure 135/58 L 07/21/19 08:47 O2 Sat by Pulse Oximetry (%) 99 07/20/19 22:00 Constitutional: Yes: Well Nourished, No Distress, Calm Eyes: Yes: WNL, Conjunctiva Clear, EOM Intact HENT: Yes: WNL, Atraumatic, Normocephalic Neck: Yes: WNL, Supple, Trachea Midline Respiratory: Yes: WNL, Regular, CTA Bilaterally Gastrointestinal: Yes: WNL, Normal Bowel Sounds Renal/: Yes: WNL Cardiovascular: Yes: WNL, Regular Rate and Rhythm Heart Sounds: Yes: S1, S2 Musculoskeletal: Yes: WNL Extremities: Yes: WNL Integumentary: Yes: WNL Neurological: Yes: WNL, Alert, Oriented ...Motor Strength: WNL Psychiatric: Yes: WNL, Alert, Oriented - Other Data Labs, Other Data: CBC, BMP 07/21/19 05:30 07/21/19 05:30 Laboratory Tests 07/19/19 07/19/19 07/19/19 21:30 21:30 21:30 WBC 7.2 RBC 4.42 Hgb 11.4 L Hct 36.1 D MCV 81.6 MCH 25.9 MCHC 31.7 L RDW 15.0 D Plt Count 273 MPV 9.6 Absolute Neuts (auto) 5.3 Neutrophils % 73.4 Lymphocytes % 15.5 Monocytes % 8.3 D Eosinophils % 1.7 Basophils % 1.1 Nucleated RBC % 0 Sodium 141 Potassium 3.7 Chloride 102 Carbon Dioxide 34 H Anion Gap 6 L BUN 30.8 H Creatinine 3.4 H Est GFR (CKD-EPI)AfAm 20.04 Est GFR (CKD-EPI)NonAf 17.29 POC Glucometer Random Glucose 220 H Calcium 11.1 H Total Bilirubin 0.3 AST 14 L ALT 13 Alkaline Phosphatase 57 Creatine Kinase 128 Troponin I 0.30 H Total Protein 5.8 L Albumin 2.8 L Lipase 196 Urine Color Urine Appearance Urine pH Ur Specific [place] Urine Protein Urine Glucose (UA) Urine Ketones Urine Blood Urine Nitrite Urine Bilirubin Urine Urobilinogen Ur Leukocyte Esterase Urine WBC (Auto) Urine RBC (Auto) Urine Casts (Auto) U Epithel Cells (Auto) Urine Bacteria (Auto) Ur Random Creatinine U Random Total Protein Ur Random Sodium Ur Random Potassium Ur Random Chloride Urine Creatinine Protein/Creatinin Ratio Blood Type Antibody Screen 07/20/19 07/20/19 07/20/19 01:00 01:13 01:13 WBC RBC Hgb Hct MCV MCH MCHC RDW Plt Count MPV Absolute Neuts (auto) Neutrophils % Lymphocytes % Monocytes % Eosinophils % Basophils % Nucleated RBC % Sodium Potassium Chloride Carbon Dioxide Anion Gap BUN Creatinine Est GFR (CKD-EPI)AfAm Est GFR (CKD-EPI)NonAf POC Glucometer Random Glucose Calcium Total Bilirubin AST ALT Alkaline Phosphatase Creatine Kinase Troponin I 0.36 H Total Protein Albumin Lipase Urine Color Yellow Urine Appearance Clear Urine pH 7.5 D Ur Specific [place] 1.017 Urine Protein 4+ H Urine Glucose (UA) 1+ H Urine Ketones Negative Urine Blood Trace Urine Nitrite Negative Urine Bilirubin Negative Urine Urobilinogen 0.2 Ur Leukocyte Esterase Negative Urine WBC (Auto) 2 Urine RBC (Auto) 1 Urine Casts (Auto) 9 U Epithel Cells (Auto) 2.8 Urine Bacteria (Auto) 1.5 Ur Random Creatinine U Random Total Protein Ur Random Sodium Ur Random Potassium Ur Random Chloride Urine Creatinine Protein/Creatinin Ratio Blood Type A POSITIVE Antibody Screen Negative 07/20/19 07/20/19 07/20/19 09:18 10:38 17:20 WBC RBC Hgb Hct MCV MCH MCHC RDW Plt Count MPV Absolute Neuts (auto) Neutrophils % Lymphocytes % Monocytes % Eosinophils % Basophils % Nucleated RBC % Sodium Potassium Chloride Carbon Dioxide Anion Gap BUN Creatinine Est GFR (CKD-EPI)AfAm Est GFR (CKD-EPI)NonAf POC Glucometer 207 Random Glucose Calcium Total Bilirubin AST ALT Alkaline Phosphatase Creatine Kinase Troponin I 0.39 H Total Protein Albumin Lipase Urine Color Urine Appearance Urine pH Ur Specific [place] Urine Protein Urine Glucose (UA) Urine Ketones Urine Blood Urine Nitrite Urine Bilirubin Urine Urobilinogen Ur Leukocyte Esterase Urine WBC (Auto) Urine RBC (Auto) Urine Casts (Auto) U Epithel Cells (Auto) Urine Bacteria (Auto) Ur Random Creatinine U Random Total Protein Ur Random Sodium Ur Random Potassium Ur Random Chloride Urine Creatinine Protein/Creatinin Ratio Blood Type A POSITIVE Antibody Screen 07/20/19 07/20/19 07/20/19 21:51 21:51 21:51 WBC RBC Hgb Hct MCV MCH MCHC RDW Plt Count MPV Absolute Neuts (auto) Neutrophils % Lymphocytes % Monocytes % Eosinophils % Basophils % Nucleated RBC % Sodium Potassium Chloride Carbon Dioxide Anion Gap BUN Creatinine Est GFR (CKD-EPI)AfAm Est GFR (CKD-EPI)NonAf POC Glucometer Random Glucose Calcium Total Bilirubin AST ALT Alkaline Phosphatase Creatine Kinase Troponin I Total Protein Albumin Lipase Urine Color Yellow Urine Appearance Clear Urine pH 7.0 Ur Specific [place] 1.013 Urine Protein 3+ H Urine Glucose (UA) Trace Urine Ketones Negative Urine Blood 1+ H Urine Nitrite Negative Urine Bilirubin Negative Urine Urobilinogen 0.2 Ur Leukocyte Esterase Negative Urine WBC (Auto) 1 Urine RBC (Auto) 1 Urine Casts (Auto) 3 U Epithel Cells (Auto) 1.3 Urine Bacteria (Auto) 0.5 Ur Random Creatinine 72.0 U Random Total Protein 378.0 H Ur Random Sodium 60 Ur Random Potassium 21.0 L Ur Random Chloride 56 L Urine Creatinine 72.0 Protein/Creatinin Ratio 5.250 Blood Type Antibody Screen 07/20/19 07/21/19 07/21/19 22:53 05:30 05:30 WBC 5.3 RBC 3.75 L Hgb 9.9 L Hct 30.4 L D MCV 81.1 MCH 26.3 MCHC 32.4 RDW 14.8 Plt Count 229 MPV 9.0 Absolute Neuts (auto) 3.4 Neutrophils % 64.4 Lymphocytes % 22.5 D Monocytes % 7.8 Eosinophils % 4.4 D Basophils % 0.9 Nucleated RBC % 0 Sodium 141 Potassium 3.1 L Chloride 104 Carbon Dioxide 31 Anion Gap 6 L BUN 29.0 H Creatinine 3.5 H Est GFR (CKD-EPI)AfAm 19.35 Est GFR (CKD-EPI)NonAf 16.69 POC Glucometer 110 Random Glucose 80 Calcium 8.6 Total Bilirubin 0.3 AST 19 ALT 12 L Alkaline Phosphatase 51 Creatine Kinase Troponin I Total Protein 5.2 L Albumin 2.5 L Lipase Urine Color Urine Appearance Urine pH Ur Specific [place] Urine Protein Urine Glucose (UA) Urine Ketones Urine Blood Urine Nitrite Urine Bilirubin Urine Urobilinogen Ur Leukocyte Esterase Urine WBC (Auto) Urine RBC (Auto) Urine Casts (Auto) U Epithel Cells (Auto) Urine Bacteria (Auto) Ur Random Creatinine U Random Total Protein Ur Random Sodium Ur Random Potassium Ur Random Chloride Urine Creatinine Protein/Creatinin Ratio Blood Type Antibody Screen 07/21/19 07/21/19 06:37 12:06 WBC RBC Hgb Hct MCV MCH MCHC RDW Plt Count MPV Absolute Neuts (auto) Neutrophils % Lymphocytes % Monocytes % Eosinophils % Basophils % Nucleated RBC % Sodium Potassium Chloride Carbon Dioxide Anion Gap BUN Creatinine Est GFR (CKD-EPI)AfAm Est GFR (CKD-EPI)NonAf POC Glucometer 87 134 Random Glucose Calcium Total Bilirubin AST ALT Alkaline Phosphatase Creatine Kinase Troponin I Total Protein Albumin Lipase Urine Color Urine Appearance Urine pH Ur Specific [place] Urine Protein Urine Glucose (UA) Urine Ketones Urine Blood Urine Nitrite Urine Bilirubin Urine Urobilinogen Ur Leukocyte Esterase Urine WBC (Auto) Urine RBC (Auto) Urine Casts (Auto) U Epithel Cells (Auto) Urine Bacteria (Auto) Ur Random Creatinine U Random Total Protein Ur Random Sodium Ur Random Potassium Ur Random Chloride Urine Creatinine Protein/Creatinin Ratio Blood Type Antibody Screen Imaging - Results Chest X-ray: Image Reviewed (no i/e) EKG: Image Reviewed (sr rbbb ?old anterio septal mi inf-lateral ischemia) Problem List - Problems (1) Acute kidney injury Code(s): N17.9 - ACUTE KIDNEY FAILURE, UNSPECIFIED (2) Elevated troponin Code(s): R74.8 - ABNORMAL LEVELS OF OTHER SERUM ENZYMES (3) Nausea & vomiting Code(s): R11.2 - NAUSEA WITH VOMITING, UNSPECIFIED Qualifiers: Vomiting type: unspecified Vomiting Intractability: unspecified Qualified Code(s): R11.2 - Nausea with vomiting, unspecified (4) Cellulitis of finger of right hand Code(s): L03.011 - CELLULITIS OF RIGHT FINGER (5) Diabetic ulcer of left foot Code(s): E11.621 - TYPE 2 DIABETES MELLITUS WITH FOOT ULCER; L97.529 - NON- PRESSURE CHRONIC ULCER OTH PRT LEFT FOOT W UNSP SEVERITY Qualifiers: Diabetic foot ulcer location: toe (6) Foot ulcer Code(s): L97.509 - NON-PRESSURE CHRONIC ULCER OTH PRT UNSP FOOT W UNSP SEVERITY Qualifiers: Laterality: left (7) Pneumonia Code(s): J18.9 - PNEUMONIA, UNSPECIFIED ORGANISM (8) Sepsis Code(s): A41.9 - SEPSIS, UNSPECIFIED ORGANISM Qualifiers: Sepsis type: sepsis due to unspecified organism Qualified Code(s): A41.9 - Sepsis, unspecified organism (9) Type 2 diabetes mellitus with foot ulcer Code(s): E11.621 - TYPE 2 DIABETES MELLITUS WITH FOOT ULCER; L97.509 - NON- PRESSURE CHRONIC ULCER OTH PRT UNSP FOOT W UNSP SEVERITY (10) Venous insufficiency Code(s): I87.2 - VENOUS INSUFFICIENCY (CHRONIC) (PERIPHERAL) (11) CAD (coronary artery disease) Code(s): I25.10 - ATHSCL HEART DISEASE OF [place] CORONARY ARTERY W/O ANG PCTRS (12) Diabetes mellitus Code(s): E11.9 - TYPE 2 DIABETES MELLITUS WITHOUT COMPLICATIONS (13) Hyperlipidemia Code(s): E78.5 - HYPERLIPIDEMIA, UNSPECIFIED (14) Hypertension Code(s): I10 - ESSENTIAL (PRIMARY) HYPERTENSION (15) PVD (peripheral vascular disease) Code(s): I73.9 - PERIPHERAL VASCULAR DISEASE, UNSPECIFIED (16) Renal insufficiency Code(s): N28.9 - DISORDER OF KIDNEY AND URETER, UNSPECIFIED Assessment/Plan 69 yo male h/;o htn, dm insulin pump, cad, cabg, bariatric surgery (sleeve) here with c/o intermittent nausea vomitin for one week found to have ARF Cr 3.5 and elevated tnis 0.39 nl ck and ? new ekg changes. ECHO tds nl ef, hct drop from 36to 30% overnight ? dilution, cp free Plan; asa telemetry seria;ekg and tnis repeat hct supplement K MIBI stress test when stable keep ldl below 70 Lipitor started
[2019-07-21] MEDS ORDERED: POTASSIUM CHLORIDE ORAL LIQUID 20 MEQ/15 ML PO ONE (12:15)
--- NOTE | 2019-07-21 12:18 | ECHO ---
Name: KATHERINE RODRIGUEZ Exam:Adult Echocardiogram Study Date: 07/21/2019 09:22 AM Age: 69 yrs Reason For Study: Chest pain Height: 71 in Weight: 270 lb BSA: 2.4 m2 MMode/2D Measurements & Calculations IVSd: 1.3 cm Ao root diam: 3.1 cm LVIDd: 4.1 cm LA dimension: 3.4 cm LVIDs: 2.6 cm LVPWd: 1.3 cm LVPWs: 1.6 cm EDV(Teich): 75.3 ml ESV(Teich): 24.5 ml LVOT diam: 2.1 cm Doppler Measurements & Calculations MV E max suraj: 71.1 cm/sec Ao V2 max: 148.5 cm/sec MV A max suraj: 105.1 cm/sec Ao max P.0 mmHg MV E/A: 0.68 Ao V2 mean: 103.8 cm/sec MV dec time: 0.26 sec Ao mean P.0 mmHg Ao V2 VTI: 25.5 cm ISAIAH(I,D): 3.5 cm2 ISAIAH(V,D): 3.2 cm2 LV V1 max P.2 mmHg SV(LVOT): 89.7 ml LV V1 mean P.7 mmHg LV V1 max: 143.1 cm/sec LV V1 mean: 103.7 cm/sec LV V1 VTI: 27.0 cm PA V2 max: 143.9 cm/sec Lat Peak E' Suraj: 6.4 cm/sec PA max P.3 mmHg Lat E/e': 11.0 Procedure A two-dimensional transthoracic echocardiogram with color flow and Doppler was performed. The study w as technically difficult with many images being suboptimal in quality. Left Ventricle There is mild concentric left ventricular hypertrophy. The left ventricular ejection fraction is norm al. E/A reversal consistent with but not diagnostic of poor LV compliance. Regional wall motion abnormalities cannot be excluded due to limited visualization. Right Ventricle The right ventricle is not well visualized. Atria Normal left and right atrial size and function. Mitral Valve The mitral valve is not well visualized. There is no mitral valve stenosis. There is mild mitral regurgitation. Tricuspid Valve The tricuspid valve is not well visualized. There is no tricuspid stenosis. There was insufficient TR detected to calculate RV systolic pressure. Aortic Valve The aortic valve is not well visualized. No hemodynamically significant valvular aortic stenosis. No aortic regurgitation is present. Pulmonic Valve The pulmonic valve is not well visualized. Great Vessels The aortic root is normal size. Pericardium/Pleura There is no pericardial effusion. Interpretation Summary There is mild concentric left ventricular hypertrophy. The left ventricular ejection fraction is normal. The study was technically difficult with many images being suboptimal in quality. The right ventricle is not well visualized. E/A reversal consistent with but not diagnostic of poor LV compliance Regional wall motion abnormalities cannot be excluded due to limited visualization. There is mild mitral regurgitation. There was insufficient TR detected to calculate RV systolic pressure. MD Piero Dejesus 07/21/2019 12:17 PM
--- NOTE | 2019-07-21 13:10 | PN ---
Progress Note, Physician History of Present Illness: Pt seen and examined at bedside. He is awake and alert. He says that he feels much better. - Current Medication List Current Medications: Active Medications Aspirin (Ecotrin -) 81 mg PO DAILY [facility] Last Admin: 07/21/19 09:05 Dose: 81 mg Atorvastatin Calcium (Lipitor -) 20 mg PO HS [facility] Docusate Sodium (Colace -) 100 mg PO TID [facility] Last Admin: 07/21/19 06:39 Dose: Not Given Duloxetine HCl (Cymbalta -) 40 mg PO DAILY [facility] Last Admin: 07/21/19 09:06 Dose: 40 mg Heparin Sodium (Porcine) (Heparin -) 5,000 unit SQ BID [facility] Last Admin: 07/21/19 09:05 Dose: 5,000 unit Sodium Chloride (1/2 Normal Saline) 1,000 mls @ 75 mls/hr IV ASDIR [facility] Last Admin: 07/20/19 18:34 Dose: 75 mls/hr Insulin Aspart (Novolog Vial Sliding Scale -) 1 vial SQ ACHS [facility]; Protocol Last Admin: 07/21/19 12:17 Dose: Not Given Lisinopril (Prinivil) 10 mg PO DAILY [facility] Last Admin: 07/21/19 09:06 Dose: 10 mg Pregabalin (Lyrica -) 50 mg PO BID [facility] Last Admin: 07/21/19 09:06 Dose: 50 mg Zolpidem Tartrate (Ambien -) 5 mg PO HS PRN PRN Reason: INSOMNIA Last Admin: 07/20/19 22:55 Dose: 5 mg - Objective Vital Signs: Vital Signs Temperature 98.2 F 07/21/19 10:41 Pulse Rate 78 07/21/19 08:47 Respiratory Rate 16 07/21/19 08:47 Blood Pressure 135/58 L 07/21/19 08:47 O2 Sat by Pulse Oximetry (%) 99 07/20/19 22:00 Constitutional: Yes: Calm Eyes: Yes: Conjunctiva Clear HENT: Yes: Atraumatic Neck: Yes: Supple Cardiovascular: Yes: S1, S2 Respiratory: Yes: CTA Bilaterally Gastrointestinal: Yes: Soft Genitourinary: Yes: WNL Musculoskeletal: Yes: WNL Edema: No Neurological: Yes: Oriented Psychiatric: Yes: Oriented Labs: CBC, BMP 07/21/19 05:30 07/21/19 05:30 Problem List - Problems (1) Acute kidney injury Code(s): N17.9 - ACUTE KIDNEY FAILURE, UNSPECIFIED Assessment/Plan Current Medications Generic Name Dose Route Start Last Admin Trade Name Melissa PRN Reason Stop Dose Admin Aspirin 81 mg 07/21/19 10:00 07/21/19 09:05 Ecotrin - PO 81 mg DAILY LINDA Administration Atorvastatin Calcium 20 mg 07/21/19 22:00 Lipitor - PO HS LINDA Docusate Sodium 100 mg 07/20/19 22:00 07/21/19 06:39 Colace - PO Not Given TID LINDA Duloxetine HCl 40 mg 07/20/19 15:45 07/21/19 09:06 Cymbalta - PO 40 mg DAILY LINDA Administration Heparin Sodium (Porcine) 5,000 unit 07/20/19 22:00 07/21/19 09:05 Heparin - SQ 5,000 unit BID LINDA Administration Sodium Chloride 1,000 mls @ 75 mls/hr 07/20/19 18:00 07/20/19 18:34 1/2 Normal Saline IV 75 mls/hr ASDIR LINDA Administration Insulin Aspart 1 vial 07/20/19 16:30 07/21/19 12:17 Novolog Vial Sliding Scale - SQ Not Given ACHS [facility] Protocol Lisinopril 10 mg 07/21/19 10:00 07/21/19 09:06 Prinivil PO 10 mg DAILY [facility]DA Administration Pregabalin 50 mg 07/20/19 22:00 07/21/19 09:06 Lyrica - PO 50 mg BID [facility]DA Administration Zolpidem Tartrate 5 mg 07/20/19 15:37 07/20/19 22:55 Ambien - PO 5 mg HS PRN Administration INSOMNIA Impression 1. MALIA 2. vomiting 3. DM 4. PVD 5. insomnia 6. anemia 7. CKD 8. proteinuria 9. non compliance 10. bladder diverticulum Plan - d/c fluids - pt tolerating diet - replace potassium - monitor renal function - he will need outpt follow up - he is still not sure whether or not he wants a kidney biopsy
--- NOTE | 2019-07-21 15:02 | EKG ---
Test Reason : Blood Pressure : / mmHG Vent. Rate : 077 BPM Atrial Rate : 077 BPM P-R Int : 168 ms QRS Dur : 098 ms QT Int : 418 ms P-R-T Axes : 062 008 196 degrees QTc Int : 473 ms NORMAL SINUS RHYTHM T WAVE ABNORMALITY, CONSIDER ANTEROLATERAL ISCHEMIA PROLONGED QT ABNORMAL ECG WHEN COMPARED WITH ECG OF 19-JUL-2019 22:58, QT HAS LENGTHENED Confirmed by RHIANNA WILLIAMSON MD ([id number]) on 07/21/2019 3:02:01 PM Referred By: CLAY MOCTEZUMA DR Confirmed By:RHIANNA WILLIAMSON MD
[2019-07-21 17:28] LABS: BASO % 0.8 % (0-2.0); EOS % 4.4 % (0-4.5); HEMATOCRIT 32.6 % (35.4-49); HEMOGLOBIN 10.3 GM/dL (11.7-16.9); LYMPH % 17.7 % (8-40); MCHC 31.7 g/dl (32.0-35.9); MEAN CELL VOLUME 82.1 fl (80-96); MEAN PLT VOLUME 9.8 fl (7.5-11.1); MONO % 7.4 % (3.8-10.2); NEUT % 69.7 % (42.8-82.8); PLATELET COUNT 254 K/MM3 (134-434); RBC 3.97 M/mm3 (4.00-5.60); RDW 15.3 % (11.9-15.9); WHITE BLOOD COUNT 5.2 K/mm3 (4.0-10.0)
[2019-07-21 17:49] LABS: CHOLESTEROL 195 mg/dL (50-200); HDL CHOLESTEROL 47 mg/dL (40-60); TRIGLYCERIDES 392 mg/dL (0-150)
--- NOTE | 2019-07-21 20:44 | PN ---
Progress Note, Physician History of Present Illness: Pt feels better - Current Medication List Current Medications: Active Medications Aspirin (Ecotrin -) 81 mg PO DAILY [facility] Last Admin: 07/21/19 09:05 Dose: 81 mg Atorvastatin Calcium (Lipitor -) 20 mg PO HS [facility] Docusate Sodium (Colace -) 100 mg PO TID [facility] Last Admin: 07/21/19 13:41 Dose: 100 mg Duloxetine HCl (Cymbalta -) 40 mg PO DAILY [facility] Last Admin: 07/21/19 09:06 Dose: 40 mg Heparin Sodium (Porcine) (Heparin -) 5,000 unit SQ BID [facility] Last Admin: 07/21/19 09:05 Dose: 5,000 unit Insulin Aspart (Novolog Vial Sliding Scale -) 1 vial SQ ACHS [facility]; Protocol Last Admin: 07/21/19 17:14 Dose: 2 units Lisinopril (Prinivil) 10 mg PO DAILY [facility] Last Admin: 07/21/19 09:06 Dose: 10 mg Pregabalin (Lyrica -) 50 mg PO BID [facility] Last Admin: 07/21/19 09:06 Dose: 50 mg Zolpidem Tartrate (Ambien -) 5 mg PO HS PRN PRN Reason: INSOMNIA Last Admin: 07/20/19 22:55 Dose: 5 mg - Objective Vital Signs: Vital Signs Temperature 97.7 F 07/21/19 18:00 Pulse Rate 69 07/21/19 18:00 Respiratory Rate 19 07/21/19 18:00 Blood Pressure 119/70 07/21/19 18:00 O2 Sat by Pulse Oximetry (%) 95 07/21/19 10:00 Neck: Yes: WNL, Supple Cardiovascular: Yes: WNL, Regular Rate and Rhythm Respiratory: Yes: WNL, Regular, CTA Bilaterally Gastrointestinal: Yes: WNL, Normal Bowel Sounds, Soft Extremities: Yes: WNL Edema: No Labs: CBC, BMP 07/21/19 16:30 07/21/19 05:30 Problem List - Problems (1) ARF (acute renal failure) Assessment/Plan: IVF wi'ed Pt may need renal bx in future Cont to trend creatinine Code(s): N17.9 - ACUTE KIDNEY FAILURE, UNSPECIFIED (2) Elevated troponin Assessment/Plan: Cont to trend cpk/troponin Cardio consult Check echo Code(s): R74.8 - ABNORMAL LEVELS OF OTHER SERUM ENZYMES (3) Nausea & vomiting Assessment/Plan: Now resolved Cont to monitor Code(s): R11.2 - NAUSEA WITH VOMITING, UNSPECIFIED Qualifiers: Vomiting type: unspecified Vomiting Intractability: unspecified Qualified Code(s): R11.2 - Nausea with vomiting, unspecified (4) CAD (coronary artery disease) Code(s): I25.10 - ATHSCL HEART DISEASE OF [place] CORONARY ARTERY W/O ANG PCTRS (5) Diabetes mellitus Assessment/Plan: Cont sliding scale w/ coverage Code(s): E11.9 - TYPE 2 DIABETES MELLITUS WITHOUT COMPLICATIONS (6) Hyperlipidemia Assessment/Plan: Cont lipitor Code(s): E78.5 - HYPERLIPIDEMIA, UNSPECIFIED (7) Hypertension Assessment/Plan: BP stable Cont lisinopril/hctz Code(s): I10 - ESSENTIAL (PRIMARY) HYPERTENSION
[2019-07-21] MEDS ORDERED: ATORVASTATIN CA 20 MG TABLET (FP) PO SCH (22:00)
[2019-07-21] MEDS: PANTOPRAZOLE 40 MG TABLET (FP) PO SCH (22:03)
[2019-07-21] MEDS: ZOLPIDEM TARTRATE 5 MG TABLET PO PRN (22:10)
[2019-07-22] MEDS: INSULIN SLIDING SCALE (NOVOLOG) 1 VIAL SQ SCH ×2 (06:20→11:00)
[2019-07-22] MEDS: DOCUSATE SODIUM 100 MG CAPSULE (FP) PO SCH (06:21)
[2019-07-22 06:48] LABS: ALBUMIN 2.6 g/dl (3.4-5.0); BILIRUBIN,TOTAL 0.3 mg/dL (0.2-1); BLOOD UREA NITROGEN 31.6 mg/dL (7-18); CALCIUM 8.3 mg/dL (8.5-10.1); CREATININE 3.7 mg/dL (0.55-1.3); POTASSIUM 3.5 mmol/L (3.5-5.1); TOT PROT 5.5 g/dl (6.4-8.2)
[2019-07-22 07:57] VITALS: BP 143/86; PULSE 87
[2019-07-22 08:11] VITALS: TEMP 98
--- NOTE | 2019-07-22 08:42 | PN ---
Progress Note, Physician Chief Complaint: Pt A&Ox3; siting up at bedside; feels "100% better"; no more nausea. No chest pain, dizziness, palpitations, dyspnea. History of Present Illness: 69 yo male h/;o CABG ?2016 (no hx IN), s/p ablation therapy for "atrial flutter " 06/08/2019 at [facility] (anticoagulation was discontinued shortly afterward)htn,s/ p loop recorder implantation a few weeks ago, dm insulin pump, s/p bariatric surgery (sleeve) here with c/o intermittent nausea vomiting. for one week. pt states she has had it off and on every since his surgery 1.5 yrs ago. denies f/ c does have lower abd pain. no cp no other complaints. saw his surgeon at [facility] 5 days ago,had recent endoscopy was feeling lightheaded and fagiue, generalized weakness had fall few days ago out of weakness. no melena, no dark stool, last bm 3 days ago, normal. Pt's paster hat lining: Dr. Huggins ([facility]) PMD: Dr. Joaquín Adam - Current Medication List Current Medications: Active Medications Aspirin (Ecotrin -) 81 mg PO DAILY [facility] Last Admin: 07/21/19 09:05 Dose: 81 mg Atorvastatin Calcium (Lipitor -) 20 mg PO HS [facility] Last Admin: 07/21/19 22:03 Dose: 20 mg Docusate Sodium (Colace -) 100 mg PO TID [facility] Last Admin: 07/22/19 06:21 Dose: 100 mg Duloxetine HCl (Cymbalta -) 40 mg PO DAILY [facility] Last Admin: 07/21/19 09:06 Dose: 40 mg Heparin Sodium (Porcine) (Heparin -) 5,000 unit SQ BID [facility] Last Admin: 07/21/19 22:02 Dose: 5,000 unit Insulin Aspart (Novolog Vial Sliding Scale -) 1 vial SQ ACHS [facility]; Protocol Last Admin: 07/22/19 06:20 Dose: Not Given Lisinopril (Prinivil) 10 mg PO DAILY [facility] Last Admin: 07/21/19 09:06 Dose: 10 mg Pantoprazole Sodium (Protonix -) 40 mg PO DAILY [facility] Last Admin: 07/21/19 22:03 Dose: 40 mg Pregabalin (Lyrica -) 50 mg PO BID [facility] Last Admin: 07/21/19 22:03 Dose: 50 mg Zolpidem Tartrate (Ambien -) 5 mg PO HS PRN PRN Reason: INSOMNIA Last Admin: 07/21/19 22:10 Dose: 5 mg - Objective Vital Signs: Vital Signs Temperature 98.0 F 07/22/19 07:56 Pulse Rate 87 07/22/19 07:56 Respiratory Rate 16 07/22/19 07:56 Blood Pressure 143/86 07/22/19 07:56 O2 Sat by Pulse Oximetry (%) 98 07/21/19 21:00 Constitutional: Yes: No Distress, Obese Eyes: Yes: WNL HENT: Yes: WNL Neck: Yes: WNL Labs: CBC, BMP 07/21/19 16:30 07/22/19 05:30 Problem List - Problems (1) Diabetic neuropathy Code(s): E11.40 - TYPE 2 DIABETES MELLITUS WITH DIABETIC NEUROPATHY, UNSP (2) Hx of CABG Code(s): Z95.1 - PRESENCE OF AORTOCORONARY BYPASS GRAFT (3) S/P ablation of accessory bypass tract Code(s): Z98.890 - OTHER SPECIFIED POSTPROCEDURAL STATES (4) Elevated troponin Assessment/Plan: TNI 0.30-->0.24 EKG: NSR: incomplete RBBB; T wave changes I, aVL, precordially. ECHO: normal LVEF. Pt has been walking for nearly an hour a day, [place] uses a cart for support due to peripheral neuropathy), up to the time of this admission, without chest pain or dyspnea. I discussed Mr. Moeller with his paster hat lining, Dr. Huggins. Pt has Lexiscan stress MIBI 12/2018: small, mildly intense inferolateral ischemia was noted.He had T wave inversions, though not as marked precordially. He underwent ablation therapy in June for atrial flutter, with resulting TNI and EKG changes. He will see him at [facility] for further evaluation of coronary artery status; this may include a repeat nuclear MIBI and/or coronary angiogram.Pt was told that he needed to be transferred to [facility], but he refuses, saying he will go to the hospital in the morning. The risks involved, which may include IN and , were discussed with him. Discussed pt's case with his RN and Dr. Avila. Code(s): R74.8 - ABNORMAL LEVELS OF OTHER SERUM ENZYMES (5) Nausea & vomiting Code(s): R11.2 - NAUSEA WITH VOMITING, UNSPECIFIED Qualifiers: Vomiting type: unspecified Vomiting Intractability: unspecified Qualified Code(s): R11.2 - Nausea with vomiting, unspecified (6) Diabetic ulcer of left foot Code(s): E11.621 - TYPE 2 DIABETES MELLITUS WITH FOOT ULCER; L97.529 - NON- PRESSURE CHRONIC ULCER OTH PRT LEFT FOOT W UNSP SEVERITY Qualifiers: Diabetic foot ulcer location: toe
[2019-07-22] MEDS: PANTOPRAZOLE 40 MG TABLET (FP) PO SCH (09:30)
[2019-07-22] MEDS: PREGABALIN 50 MG CAPSULE PO SCH (09:30)
[2019-07-22] MEDS: DULoxetine HCL 20 MG CAPSULE.DR PO SCH (09:30)
[2019-07-22] MEDS: ASPIRIN COATED 81 MG TABLET.EC PO SCH (09:30)
[2019-07-22] MEDS: LISINOPRIL 10 MG TABLET (FP) PO SCH (09:30)
[2019-07-22] MEDS: HEPARIN NA (PORCINE) 5,000 UNITS/ML 1ML VIAL SQ SCH (09:31)
--- NOTE | 2019-07-22 14:24 | PN ---
Progress Note, Physician History of Present Illness: Pt seen and examined at bedside. He is awake and alert. His is at bedside. She says that he has not been compliant with diet or meds. - Current Medication List Current Medications: Active Medications Aspirin (Ecotrin -) 81 mg PO DAILY [facility] Last Admin: 07/22/19 09:30 Dose: 81 mg Atorvastatin Calcium (Lipitor -) 20 mg PO HS [facility] Last Admin: 07/21/19 22:03 Dose: 20 mg Docusate Sodium (Colace -) 100 mg PO TID [facility] Last Admin: 07/22/19 06:21 Dose: 100 mg Duloxetine HCl (Cymbalta -) 40 mg PO DAILY [facility] Last Admin: 07/22/19 09:30 Dose: 40 mg Heparin Sodium (Porcine) (Heparin -) 5,000 unit SQ BID [facility] Last Admin: 07/22/19 09:31 Dose: 5,000 unit Insulin Aspart (Novolog Vial Sliding Scale -) 1 vial SQ ACHS [facility]; Protocol Last Admin: 07/22/19 11:00 Dose: 6 units Lisinopril (Prinivil) 10 mg PO DAILY [facility] Last Admin: 07/22/19 09:30 Dose: 10 mg Pantoprazole Sodium (Protonix -) 40 mg PO DAILY [facility] Last Admin: 07/22/19 09:30 Dose: 40 mg Pregabalin (Lyrica -) 50 mg PO BID [facility] Last Admin: 07/22/19 09:30 Dose: 50 mg Zolpidem Tartrate (Ambien -) 5 mg PO HS PRN PRN Reason: INSOMNIA Last Admin: 07/21/19 22:10 Dose: 5 mg - Objective Vital Signs: Vital Signs Temperature 98.0 F 07/22/19 07:56 Pulse Rate 87 07/22/19 07:56 Respiratory Rate 16 07/22/19 07:56 Blood Pressure 143/86 07/22/19 07:56 O2 Sat by Pulse Oximetry (%) 98 07/21/19 21:00 Constitutional: Yes: Calm Eyes: Yes: Conjunctiva Clear HENT: Yes: Atraumatic Cardiovascular: Yes: S1, S2 Respiratory: Yes: CTA Bilaterally Gastrointestinal: Yes: Soft Genitourinary: Yes: WNL Musculoskeletal: Yes: WNL Edema: Yes Edema: LLE: Trace, RLE: Trace Integumentary: Yes: Venous Stasis Changes Neurological: Yes: Oriented Psychiatric: Yes: Oriented Labs: CBC, BMP 07/21/19 16:30 07/22/19 05:30 Problem List - Problems (1) Acute kidney injury Code(s): N17.9 - ACUTE KIDNEY FAILURE, UNSPECIFIED Assessment/Plan Current Medications Generic Name Dose Route Start Last Admin Trade Name Freq PRN Reason Stop Dose Admin Aspirin 81 mg 07/21/19 10:00 07/22/19 09:30 Ecotrin - PO 81 mg DAILY LINDA Administration Atorvastatin Calcium 20 mg 07/21/19 22:00 07/21/19 22:03 Lipitor - PO 20 mg HS LINDA Administration Docusate Sodium 100 mg 07/20/19 22:00 07/22/19 06:21 Colace - PO 100 mg TID LINDA Administration Duloxetine HCl 40 mg 07/20/19 15:45 07/22/19 09:30 Cymbalta - PO 40 mg DAILY LINDA Administration Heparin Sodium (Porcine) 5,000 unit 07/20/19 22:00 07/22/19 09:31 Heparin - SQ 5,000 unit BID LINDA Administration Insulin Aspart 1 vial 07/20/19 16:30 07/22/19 11:00 Novolog Vial Sliding Scale - SQ 6 units ACHS LINDA Administration Protocol Lisinopril 10 mg 07/21/19 10:00 07/22/19 09:30 Prinivil PO 10 mg DAILY LINDA Administration Pantoprazole Sodium 40 mg 07/21/19 21:30 07/22/19 09:30 Protonix - PO 40 mg DAILY LINDA Administration Pregabalin 50 mg 07/20/19 22:00 07/22/19 09:30 Lyrica - PO 50 mg BID LINDA Administration Zolpidem Tartrate 5 mg 07/20/19 15:37 07/21/19 22:10 Ambien - PO 5 mg HS PRN Administration INSOMNIA Impression 1. MALIA 2. vomiting 3. DM 4. PVD 5. insomnia 6. anemia 7. CKD 8. proteinuria 9. non compliance 10. bladder diverticulum Plan - will need outpt follow up - discussed compliance with meds - at bedside and is aware of plan - pt likely has progression of his CKD - he does not want to get a kidney biopsy
--- NOTE | 2019-07-23 14:40 | EKG ---
Test Reason : Blood Pressure : / mmHG Vent. Rate : 075 BPM Atrial Rate : 075 BPM P-R Int : 204 ms QRS Dur : 098 ms QT Int : 398 ms P-R-T Axes : 049 -07 254 degrees QTc Int : 444 ms NORMAL SINUS RHYTHM INCOMPLETE RIGHT BUNDLE BRANCH BLOCK POSSIBLE ANTERIOR INFARCT , AGE UNDETERMINED ABNORMAL ECG WHEN COMPARED WITH ECG OF 21-JUL-2019 13:17, NO SIGNIFICANT CHANGE WAS FOUND Confirmed by TRACY MOHAN, AZAM ([id number]) on 07/23/2019 2:39:46 PM Referred By: CLAY MOCTEZUMA DR Confirmed By:AZAM MOLINA MD
== END 2019-07-22 15:17 | disposition home or self-care (01) | DRG 684 ==
LOC: JER 19:34 → JERBED 23:50 → J4S 07-20 20:34
PROVIDERS: ADMIT Internal Medicine; ATTEND Internal Medicine
DX: N17.9 Acute kidney failure, unspecified (principal); I25.10 Atherosclerotic heart disease of native coronary artery without angina pectoris; E11.9 Type 2 diabetes mellitus without complications; Z95.1 Presence of aortocoronary bypass graft; R11.2 Nausea with vomiting, unspecified; E78.5 Hyperlipidemia, unspecified; R74.8 Abnormal levels of other serum enzymes; I12.9 Hypertensive chronic kidney disease with stage 1 through stage 4 chronic kidney disease, or unspecified chronic kidney disease; D64.9 Anemia, unspecified; N18.9 Chronic kidney disease, unspecified; E66.9 Obesity, unspecified; Z68.31 Body mass index [BMI] 31.0-31.9, adult; G47.00 Insomnia, unspecified; E86.0 Dehydration
CPT/HCPCS: 36415; 74176-TC; 76775-TC; 80053; 80061; 81003; 82436; 82550; 82565; 82570; 82962; 83690; 83721; 84133; 84156; 84300; 84484; 85025; 86850; 86900; 86901; 87081; 93005; 93010; 93306-TC; 99284-25; J1644; J7030

== ENCOUNTER 2020-05-12 14:13 | Inpatient (IN) | payer OTHER, BC ==
--- NOTE | 2020-05-12 14:18 | PDOC ---
Rapid Medical Evaluation Time Seen by Provider: 05/12/20 14:16 Medical Evaluation: Allergies Allergy/AdvReac Type Severity Reaction Status Date / Time levofloxacin [From Levaquin] Allergy Intermediate Verified 05/12/20 14:16 morphine Allergy Intermediate Vomiting Verified 05/12/20 14:16 codeine AdvReac Verified 05/12/20 14:16 egg AdvReac Vomiting Verified 05/12/20 14:16 egg yolk AdvReac Vomiting Verified 05/12/20 14:16 05/12/20 14:16 CC: sent for admission form dr magana, diabetic foot ulcer x 1 month, in hyperbarics. no fever Exam: VSS. Plan: Labs, iv, Discharge Disposition - Diagnosis Foot ulcer - Referrals - Patient Instructions - Post Discharge Activity
[2020-05-12 15:12] LABS: BASO % 0.5 % (0-2.0); EOS % 3.7 % (0-4.5); HEMATOCRIT 24.6 % (35.4-49); HEMOGLOBIN 7.8 GM/dL (11.7-16.9); LYMPH % 13.4 % (8-40); MCH 27.9 pg (25.7-33.7); MCHC 31.6 g/dl (32.0-35.9); MEAN CELL VOLUME 88.3 fl (80-96); MEAN PLT VOLUME 9.2 fl (7.5-11.1); MONO % 10.3 % (3.8-10.2); NEUT % 72.1 % (42.8-82.8); PLATELET COUNT 178 K/MM3 (134-434); RBC 2.78 M/mm3 (4.00-5.60); RDW 17.3 % (11.9-15.9); WHITE BLOOD COUNT 6.1 K/mm3 (4.0-10.0)
[2020-05-12 15:21] LABS: INR 1.2 (0.83-1.09); PROTHROMBIN TIME (PATIENT) 14.2 SEC (9.7-13.0)
[2020-05-12] MEDS ORDERED: VANCOMYCIN HCL 1,500 MG in DEXTROSE 5%-WATER - 500 ML IVPB ONE (15:28)
[2020-05-12] MEDS ORDERED: PIPERACILLIN/TAZOB 3.375 GM 3.375 GM in DEXTROSE 5%-WATER - 50 ML IVPB ONE (15:29)
--- NOTE | 2020-05-12 15:34 | PDOC ---
History of Present Illness - General Chief Complaint: Wound Stated Complaint: SENT BY PCP/LT FOOT CELLULITIS Time Seen by Provider: 05/12/20 14:16 - History of Present Illness Initial Comments: 05/12/20 15:28 69 yo male with a history of DM, HTN, CAD, BOBY, CKD, HLD, diastolic CHF, atrial flutter, CVA, PAD, peripheral neuropathy and morbid obesity sent to ED by Dr Garcia (wound care) for chronic left lateral mal ulcer with overlying cellulitis. Pt states that he has had the ulcer which has not improved with hyperbarics for 2 months. Pt states that he has limited sensation in his LE 2/2 neuropathy and can not endorse pain at this time. Pt states he has however noted increased swelling in the LLE. Pt otherwise denies: fevers, chills, syncope, lightheadedness, dizziness, headaches, neck pain, chest pain, shortness of b reath, palpitations, back pain, abdominal pain, nausea, vomiting, diarrhea, constipation. Past History - Medical History Allergies/Adverse Reactions: Allergies Allergy/AdvReac Type Severity Reaction Status Date / Time levofloxacin [From Levaquin] Allergy Intermediate Verified 05/12/20 14:16 morphine Allergy Intermediate Vomiting Verified 05/12/20 14:16 codeine AdvReac Verified 05/12/20 14:16 egg AdvReac Vomiting Verified 05/12/20 14:16 egg yolk AdvReac Vomiting Verified 05/12/20 14:16 Home Medications: Ambulatory Orders Aspirin Coated [Ecotrin -] 81 mg PO DAILY 11/18/17 Zolpidem Tartrate [Ambien] 10 mg PO HS 01/06/18 Duloxetine HCl 40 mg PO DAILY 07/20/19 Pregabalin [Lyrica -] 50 mg PO BID MDD 2 07/20/19 Apixaban [Eliquis -] 5 mg PO BID 12/24/19 Gabapentin [Neurontin -] 100 mg PO BID 04/12/20 Insulin Aspart [Novolog] 0 unit SQ ASDIR 04/12/20 Amlodipine Besylate [Norvasc -] 5 mg PO DAILY #30 tablet 04/18/20 Atorvastatin Ca [Lipitor] 20 mg PO HS #30 tablet 04/18/20 Calcium 500Mg/Vit-D 200 Units [Os-Osvaldo 500+D -] 1 tab PO DAILY #30 tab 04/18/20 Collagenase Clostridium Hist. [Santyl -] 1 applic TP DAILY #1 tube 04/18/20 Metoprolol Succinate [Toprol XL -] 25 mg PO DAILY #30 tab.sr.24h 04/18/20 Pantoprazole Sodium [Protonix -] 40 mg PO DAILY #30 tablet.ec 04/18/20 Anemia: No Asthma: No Cancer: No Cardiac Disorders: Yes (a fib on eliquis) CVA: Yes COPD: No CHF: No Dementia: No Diabetes: Yes GI Disorders: No Disorders: Yes (CKD) HTN: Yes Hypercholesterolemia: Yes Liver Disease: No Seizures: No Thyroid Disease: No - Surgical History Abdominal Surgery: Yes (BARIATRIC) Appendectomy: No Cardiac Surgery: Yes (quad bypass) Cholecystectomy: No Lung Surgery: No Neurologic Surgery: Yes (DDD) Orthopedic Surgery: Yes (RIGHT HAND, NECK) - Immunization History Immunization Up to Date: Yes - Psycho-Social/Smoking History Smoking History: Unknown if ever smoked Have you smoked in the past 12 months: No If you are a former smoker, when did you quit?: 25 years ago - Substance Abuse Hx (Audit-C & DAST Scrn) How often the patient has a drink containing alcohol: Monthly or less Score: In Men: 4 or > Positive; In Women: 3 or > Positive: 1 Screen Result (Pos requires Nsg. Audit-10AR): Negative In the last yr the pt used illegal drug/Rx for NonMed reason: No Score: Yes response is considered Positive: 0 Screen Result (Positive result requires Nsg. DAST-10): Negative Review of Systems - Review of Systems Constitutional: No: Chills, Fever Respiratory: No: Orthopnea, Shortness of Breath Cardiac (ROS): No: Chest Pain ABD/GI: No: Abdominal Distended : No: Dysuria, Discharge Integumentary: Yes: Change in Color, Erythema. No: Bruising Neurological: No: Headache, Tingling *Physical Exam - Vital Signs Last Vital Signs Temp Pulse Resp BP Pulse Ox 98.0 F 65 18 133/53 L 99 05/12/20 14:20 05/12/20 14:20 05/12/20 14:20 05/12/20 14:20 05/12/20 14:20 - Physical Exam 05/12/20 15:33 Gen: AAOx 3, no acute distress, comfortable, no signs of respiratory distress HENT: atraumatic, normocephalic with no laceration or contusion. Nasal mucosa without erythema. Oropharynx without erythema or exudates. Mucous membranes moist. EYES: PERRL, EOM intact, conjunctiva pink NECK: supple; trachea midline; no JVD, no lymphadenopathy, or thyromegaly CV: RRR no murmurs, gallops, or rubs. CHEST: CTA b/l no wheezing, rales or rhonchi ABD: +BS/ND. no TTP; soft, no rebound, no guarding EXTREMITY: no cyanosis or erythema. 1+ dorsalis pedis, posterior tibial, and radial pulse. No pedal edema; LLE calf swelling without tenderness LLE: swelling and erythema to the anterior gu with increased warmth, stage 4 ulcer to the lateral mal SKIN: no rash, warm and dry, no diaphoresis HEME: no purpura or ecchymosis NEURO: normal speech, CN II-XII intact, sensation intact, normal gait, no cerebellar deficits MS: 5/5 strength in all extremities, FROM intact in all extremities. ED Treatment Course - LABORATORY CBC & Chemistry Diagram: 05/12/20 14:48 05/12/20 14:48 - ADDITIONAL ORDERS Additional order review: Laboratory Results 05/12/20 14:48 PT with INR 14.20 H INR 1.20 H 05/12/20 14:48 RBC 2.78 L MCV 88.3 MCHC 31.6 L RDW 17.3 H MPV 9.2 Neutrophils % 72.1 Lymphocytes % 13.4 D Monocytes % 10.3 H Eosinophils % 3.7 Basophils % 0.5 - RADIOLOGY Radiology Studies Ordered: Category Date Time Status ANKLE & FOOT-LEFT* [RAD] Stat Radiology 05/12/20 15:15 Ordered DUPLEX VASCUL US-1 LEG [US] Stat Ultrasound 05/12/20 15:15 Ordered Medical Decision Making - Medical Decision Making 05/12/20 15:34 69 yo male with a history of DM, HTN, CAD, BOBY, CKD, HLD, diastolic CHF, atrial flutter, CVA, PAD, peripheral neuropathy and morbid obesity sent for admission for LLE ulcer and cellulitis. Will obtain CBC, CMP, BCx2, Wound culture, US doppler LLE, XR left ankle and foot, lactate. Will adminsiter Reva and Shyanne Spoke with Dr Garcia, Dr Null, and Dr Avila. Pt admitted to Dr Vo service for further management. X-ray shows moderate soft tissue swelling of the medial mall no acute fracture dislocation or bone destruction identified Venous doppler negative for DVT in LLE Labs Show: Laboratory Tests 05/12/20 05/12/20 05/12/20 14:48 14:48 14:48 RBC 2.78 L Hgb 7.8 L Hct 24.6 L PT with INR 14.20 H INR 1.20 H Potassium 5.1 BUN 67.9 H Creatinine 5.0 H Random Glucose 300 H Calcium 7.1 L CRP 1.6H Last admission on 04/17/20 H&H 8.8/27 Cr 4.4 Will defer decision to transfuse to admitting team. Discharge - Discharge Information Problems reviewed: Yes Clinical Impression/Diagnosis: Diabetic ulcer of left foot Qualifiers: Diabetic foot ulcer location: unspecified part of foot Diabetes mellitus type: type 2 Non-pressure ulcer stage: unspecified non-pressure ulcer stage Qualified Code(s): E11.621 - Type 2 diabetes mellitus with foot ulcer; L97.529 - Non- pressure chronic ulcer of other part of left foot with unspecified severity - Follow up/Referral - Patient Discharge Instructions - Post Discharge Activity
[2020-05-12 15:47] LABS: ALBUMIN 2.5 g/dl (3.4-5.0); BILIRUBIN,TOTAL 0.4 mg/dL (0.2-1); BLOOD UREA NITROGEN 67.9 mg/dL (7-18); CALCIUM 7.1 mg/dL (8.5-10.1); POTASSIUM 5.1 mmol/L (3.5-5.1); TOT PROT 5.7 g/dl (6.4-8.2)
[2020-05-12] MEDS ORDERED: PIPERACILLIN/TAZOB 3.375 GM 3.375 GM/50 ML BAG IVPB ONE (17:07)
[2020-05-12 18:00] LABS: ERYTHROCYTE SEDIMENTATION RATE 105 mm/hr (0-20)
[2020-05-12 19:24] LABS: EPI CELLS 6 /uL (0-25.1); HYALINE CASTS 1 /uL (0-3.1); URINE APPEARANCE CLEAR; URINE BACTERIA 10 /uL (0-1359); URINE BILIRUBIN NEGATIVE (NEGATIVE); URINE COLOR YELLOW; URINE GLUCOSE (UA) 3+ (NEGATIVE); URINE KETONE NEGATIVE (NEGATIVE); URINE LEUK ESTERASE NEGATIVE (NEGATIVE); URINE NITRITE NEGATIVE (NEGATIVE); URINE PROTEIN 3+ (NEGATIVE); URINE RBC 20 /uL (0-23.9); URINE UROBILINOGEN 0.2 mg/dL (0.2-1.0); URINE WBC 9 /uL (0-25.8)
[2020-05-12] MEDS ORDERED: ZOLPIDEM TARTRATE 5 MG TABLET PO ONE (23:00)
--- NOTE | 2020-05-12 23:55 | HP ---
Admitting History and Physical - Admission History of Present Illness: 69 yo male with a history of DM, HTN, CAD, BOBY, CKD, HLD, diastolic CHF, atrial flutter, CVA, PAD, peripheral neuropathy and morbid obesity sent to ED by Dr Garcia (wound care) for chronic left lateral mal ulcer with overlying cellulitis. Pt states that he has had the ulcer which has not improved with hyperbarics for 2 months. Pt states that he has limited sensation in his LE 2/2 neuropathy and can not endorse pain at this time. Pt states he has however noted increased swelling in the LLE. Pt otherwise denies: fevers, chills, syncope, ligh theadedness, dizziness, headaches, neck pain, chest pain, shortness of breath, palpitations, back pain, abdominal pain, nausea, vomiting, diarrhea, constipation. 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 Cardiovascular: Yes: CAD, HTN, Other Renal/: Yes: Renal Failure, Renal Inusuff Infectious Disease: Yes: MRSA (Lt finger abscess) Endocrine: Yes: Diabetes Mellitus Dermatology: Yes: Cellulitis - Past Surgical History Past Surgical History: Yes: Bariatric Surgery, CABG, Carotid Endarterectomy - Advance Directives Advance Directives: Yes: Health Care Proxy - Smoking History Smoking history: Unknown if ever smoked Have you smoked in the past 12 months: No If you are a former smoker, when did you quit?: 25 years ago - Alcohol/Substance Use Hx Alcohol Use: No History of Substance Use: reports: None - Social History ADL: Independent History of Recent Travel: No Home Medications - Allergies Allergies/Adverse Reactions: Allergies Allergy/AdvReac Type Severity Reaction Status Date / Time levofloxacin [From Levaquin] Allergy Intermediate Verified 05/12/20 14:16 morphine Allergy Intermediate Vomiting Verified 05/12/20 14:16 codeine AdvReac Verified 05/12/20 14:16 egg AdvReac Vomiting Verified 05/12/20 14:16 egg yolk AdvReac Vomiting Verified 05/12/20 14:16 - Home Medications Home Medications: Ambulatory Orders Aspirin Coated [Ecotrin -] 81 mg PO DAILY 11/18/17 Zolpidem Tartrate [Ambien] 10 mg PO HS 01/06/18 Duloxetine HCl 40 mg PO DAILY 07/20/19 Pregabalin [Lyrica -] 50 mg PO BID MDD 2 07/20/19 Apixaban [Eliquis -] 5 mg PO BID 12/24/19 Gabapentin [Neurontin -] 100 mg PO BID 04/12/20 Insulin Aspart [Novolog] 0 unit SQ ASDIR 04/12/20 Amlodipine Besylate [Norvasc -] 5 mg PO DAILY #30 tablet 04/18/20 Atorvastatin Ca [Lipitor] 20 mg PO HS #30 tablet 04/18/20 Calcium 500Mg/Vit-D 200 Units [Os-Osvaldo 500+D -] 1 tab PO DAILY #30 tab 04/18/20 Collagenase Clostridium Hist. [Santyl -] 1 applic TP DAILY #1 tube 04/18/20 Metoprolol Succinate [Toprol XL -] 25 mg PO DAILY #30 tab.sr.24h 04/18/20 Pantoprazole Sodium [Protonix -] 40 mg PO DAILY #30 tablet.ec 04/18/20 Family Medical History Family History: Unremarkable Physical Examination Vital Signs: Vital Signs Temperature 98.4 F 05/12/20 18:14 Pulse Rate 81 05/12/20 18:14 Respiratory Rate 20 05/12/20 18:14 Blood Pressure 165/92 05/12/20 18:14 O2 Sat by Pulse Oximetry (%) 100 05/12/20 17:40 Constitutional: Yes: Well Nourished Eyes: Yes: WNL HENT: Yes: WNL Neck: Yes: WNL, Supple Cardiovascular: Yes: WNL, Regular Rate and Rhythm Respiratory: Yes: WNL, Regular, CTA Bilaterally Gastrointestinal: Yes: WNL, Normal Bowel Sounds, Soft, Abdomen, Obese Musculoskeletal: Yes: Other (Lt foot lat ulcer) Edema: Yes Edema: LLE: Trace, RLE: Trace Neurological: Yes: WNL, Alert, Oriented ...Motor Strength: WNL Labs: CBC, BMP 05/12/20 14:48 05/12/20 14:48 Problem List - Problems (1) Diabetic ulcer of left foot Assessment/Plan: Cont IV Zosyn/vanco Check cultures ID/Vascular consults Code(s): E11.621 - TYPE 2 DIABETES MELLITUS WITH FOOT ULCER; L97.529 - NON- PRESSURE CHRONIC ULCER OTH PRT LEFT FOOT W UNSP SEVERITY Qualifiers: Diabetic foot ulcer location: unspecified part of foot Diabetes mellitus ty pe: type 2 Non-pressure ulcer stage: unspecified non-pressure ulcer stage Qualified Code(s): E11.621 - Type 2 diabetes mellitus with foot ulcer; L97.529 - Non-pressure chronic ulcer of other part of left foot with unspecified severity (2) Atrial fibrillation Assessment/Plan: renal dosing of eliquis Rate controlled Code(s): I48.91 - UNSPECIFIED ATRIAL FIBRILLATION (3) Acute on chronic renal failure Assessment/Plan: As per renal Cont to monitor Monitor BUN/creatinine Code(s): N17.9 - ACUTE KIDNEY FAILURE, UNSPECIFIED; N18.9 - CHRONIC KIDNEY DISEASE, UNSPECIFIED (4) Diabetic neuropathy Code(s): E11.40 - TYPE 2 DIABETES MELLITUS WITH DIABETIC NEUROPATHY, UNSP (5) Hx of CABG Code(s): Z95.1 - PRESENCE OF AORTOCORONARY BYPASS GRAFT (6) PAD (peripheral artery disease) Code(s): I73.9 - PERIPHERAL VASCULAR DISEASE, UNSPECIFIED (7) Hyperlipidemia Code(s): E78.5 - HYPERLIPIDEMIA, UNSPECIFIED Qualifiers: Hyperlipidemia type: pure hypercholesterolemia Qualified Code(s): E78.00 - Pure hypercholesterolemia, unspecified; E78.0 - Pure hypercholesterolemia (8) Hypertension Code(s): I10 - ESSENTIAL (PRIMARY) HYPERTENSION Qualifiers: Hypertension type: essential hypertension Qualified Code(s): I10 - Essential (primary) hypertension
[2020-05-13] MEDS: APIXABAN 5 MG TABLET PO SCH ×3 (00:27→21:45)
[2020-05-13] MEDS ORDERED: DEXTROSE 5%-WATER - 50 ML IVPB ONE ×4 (01:26→17:35)
[2020-05-13] MEDS ORDERED: PIPERACILLIN/TAZOBACTAM 3.375 GM VIAL IVPB ONE ×3 (01:26→09:03)
[2020-05-13] MEDS: PIPERACILLIN/TAZOB 3.375 GM 3.375 GM in DEXTROSE 5%-WATER - 50 ML IVPB SCH ×2 (02:00→09:08)
[2020-05-13] MEDS: INSULIN SLIDING SCALE (NOVOLOG) 1 VIAL SQ SCH ×4 (06:13→21:49)
[2020-05-13 08:48] LABS: BASO % 0.5 % (0-2.0); EOS % 3.1 % (0-4.5); HEMOGLOBIN 7.4 GM/dL (11.7-16.9); LYMPH % 9.9 % (8-40); MCH 28.1 pg (25.7-33.7); MCHC 32.2 g/dl (32.0-35.9); MEAN CELL VOLUME 87.5 fl (80-96); MEAN PLT VOLUME 9.3 fl (7.5-11.1); MONO % 9.6 % (3.8-10.2); NEUT % 76.9 % (42.8-82.8); PLATELET COUNT 186 K/MM3 (134-434); RBC 2.63 M/mm3 (4.00-5.60); RDW 16.9 % (11.9-15.9); WHITE BLOOD COUNT 6.5 K/mm3 (4.0-10.0)
[2020-05-13] MEDS ORDERED: PT OWN MED DRAWER 7, Y5N ONE ×2 (09:03→14:31)
[2020-05-13] MEDS: metoPROLOL SUCCINATE 25 MG TAB.SR.24H (FP) PO SCH (09:07)
[2020-05-13] MEDS: amLODIPine BESYLATE 5 MG TABLET (FP) PO SCH (09:07)
[2020-05-13] MEDS: CALCIUM 500MG/VIT-D 200 UNITS COMBO TABLET (FP) PO SCH (09:07)
[2020-05-13] MEDS: GABAPENTIN 100 MG CAPSULE PO SCH ×2 (09:07→21:45)
[2020-05-13] MEDS: PANTOPRAZOLE 40 MG TABLET PO SCH (09:07)
[2020-05-13] MEDS: DULoxetine HCL 20 MG CAPSULE.DR PO SCH (09:07)
[2020-05-13] MEDS: ASPIRIN COATED 81 MG TABLET.EC PO SCH (09:08)
[2020-05-13 09:14] LABS: ALBUMIN 2.2 g/dl (3.4-5.0); BILIRUBIN,TOTAL 0.4 mg/dL (0.2-1); BLOOD UREA NITROGEN 62.5 mg/dL (7-18); CALCIUM 7.1 mg/dL (8.5-10.1); POTASSIUM 4.4 mmol/L (3.5-5.1)
[2020-05-13 09:15] LABS: CREATININE 5.1 mg/dL (0.55-1.3); TOT PROT 5.3 g/dl (6.4-8.2)
[2020-05-13] MEDS ORDERED: EPOETIN ALFA 20,000 UNIT/1 ML VIAL SQ ONE (13:09)
--- NOTE | 2020-05-13 13:09 | CON.NEP ---
Consult Consult Specialty:: Nephrology Referred by:: Medicine Reason for Consultation:: CKD stage 5 - History of Present Illness Chief Complaint: non-healing leg wound History of Present Illness: This is a 69 year old male with PMHx of CKD stage 5 (Last outpatient Cr 5), hypertension, DM, PVD, CAD s/p CABG who was sent in from the wound care clinic with LE wound and found to have suspected cellulitis. Seen and examined at the [facility]. Pt follows with Dr. Shy Brown as an outpatient for his CKD, was last seen May 03. He offers no acute complaints at this time. No SOB, CP, fever, chills, N/V/D, flank pain, dysuria or frequency. Making urine. No leg swelling. 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 Cardio/Vascular: Yes: CAD, HTN, Other Renal/: Yes: Renal Failure, Renal Inusuff Infectious Disease: Yes: MRSA (Lt finger abscess) Endocrine: Yes: Diabetes Mellitus Dermatology: Yes: Cellulitis - Past Surgical History Past Surgical History: Yes: Bariatric Surgery, CABG, Carotid Endarterectomy - Alcohol/Substance Use Hx Alcohol Use: No History of Substance Use: reports: None - Smoking History Smoking history: Unknown if ever smoked Have you smoked in the past 12 months: No If you are a former smoker, when did you quit?: 25 years ago - Social History ADL: Independent History of Recent Travel: No Home Medications - Allergies Allergies/Adverse Reactions: Allergies Allergy/AdvReac Type Severity Reaction Status Date / Time levofloxacin [From Levaquin] Allergy Intermediate Verified 05/12/20 14:16 morphine Allergy Intermediate Vomiting Verified 05/12/20 14:16 codeine AdvReac Verified 05/12/20 14:16 egg AdvReac Vomiting Verified 05/12/20 14:16 egg yolk AdvReac Vomiting Verified 05/12/20 14:16 - Home Medications Home Medications: Ambulatory Orders Aspirin Coated [Ecotrin -] 81 mg PO DAILY 11/18/17 Zolpidem Tartrate [Ambien] 10 mg PO HS 01/06/18 Duloxetine HCl 40 mg PO DAILY 07/20/19 Pregabalin [Lyrica -] 50 mg PO BID MDD 2 07/20/19 Apixaban [Eliquis -] 5 mg PO BID 12/24/19 Gabapentin [Neurontin -] 100 mg PO BID 04/12/20 Insulin Aspart [Novolog] 0 unit SQ ASDIR 04/12/20 Amlodipine Besylate [Norvasc -] 5 mg PO DAILY #30 tablet 04/18/20 Atorvastatin Ca [Lipitor] 20 mg PO HS #30 tablet 04/18/20 Calcium 500Mg/Vit-D 200 Units [Os-Osvaldo 500+D -] 1 tab PO DAILY #30 tab 04/18/20 Collagenase Clostridium Hist. [Santyl -] 1 applic TP DAILY #1 tube 04/18/20 Metoprolol Succinate [Toprol XL -] 25 mg PO DAILY #30 tab.sr.24h 04/18/20 Pantoprazole Sodium [Protonix -] 40 mg PO DAILY #30 tablet.ec 04/18/20 Family Medical History Family History: Unremarkable Review of Systems - Review of Systems Constitutional: reports: No Symptoms Eyes: reports: No Symptoms HENT: reports: No Symptoms Neck: reports: No Symptoms Cardiovascular: reports: No Symptoms Respiratory: reports: No Symptoms Gastrointestinal: reports: No Symptoms Genitourinary: reports: No Symptoms Musculoskeletal: reports: Other (foot swelling and reddness) Integumentary: reports: Erythema Neurological: reports: No Symptoms Nephrology Consult - Height Height: 5 ft 11 in - Weight Weight: 109.372 kg - BMI Body Mass Index (BMI): 33.6 - Lab Results CBC,BMP: CBC, BMP 05/13/20 07:38 05/13/20 07:38 Anion Gap: Anion Gap Anion Gap 8 MMOL/L (8-16) 05/13/20 07:38 - Imaging X-ray: Report Reviewed, Image Reviewed - Physical Examination Vital Signs: Vital Signs Temperature 98.5 F 05/13/20 10:00 Pulse Rate 82 05/13/20 10:00 Respiratory Rate 20 05/13/20 10:00 Blood Pressure 147/71 05/13/20 10:00 O2 Sat by Pulse Oximetry (%) 99 05/13/20 09:00 Constitutional: Yes: Well Nourished, No Distress Eyes: Yes: Conjunctiva Clear HENT: Yes: Atraumatic Neck: Yes: Supple Cardiovascular: Yes: Regular Rate and Rhythm. No: Murmur, Rub Respiratory: Yes: Regular, CTA Bilaterally Gastrointestinal: Yes: Soft Renal/: No: Bladder Distention, CVA Tenderness - Left, CVA Tenderness - Right Extremities: Yes: Erythema. No: Cyanosis Edema: Yes Edema: LLE: Trace Neurological: Yes: Alert, Oriented Assessment/Plan 69 year old male with PMHx of CKD stage 5 (Last outpatient Cr 5), hypertension, DM, PVD, CAD s/p CABG who was sent in from the wound care clinic with LE wound and found to have suspected cellulitis. 1. CKD stage 5 not yet on dialysis 2. LE wound 3. Cellulitis of the lower extremity 4. Hypertension 5. DM 6. Chronic anemia Renal function essentially stable. Despite low eGFR there is no acute indication for renal replacement therapy at this time. He is in the process of getting AVF placed as an outpatient Will give ANNI today for anemia Check iron levels continue antibiotics as per primary team Trend renal function and electrolytes daily Vascular follow up Jonah Painting DO
[2020-05-13] MEDS ORDERED: PIPERACILLIN/TAZOB 2.25 GM 2.25 GM in DEXTROSE 5%-WATER - 50 ML IVPB SCH ×2 (13:30→18:00)
--- NOTE | 2020-05-13 15:35 | CON.ID ---
Consult Consult Specialty:: infetious diseases Referred by:: Reason for Consultation:: r/o osteo,wound infection,cellulitis of the leg - History of Present Illness Chief Complaint: non healing wound and redness of he leg History of Present Illness: 69 yo male with a history of DM, HTN, CAD, BOBY, CKD, HLD, diastolic CHF, atrial flutter, CVA, PAD, peripheral neuropathy and morbid obesity sent to ED by Dr Garcia (wound care) for chronic left lateral mal ulcer with overlying cellulitis. Pt states that he has had the ulcer which has not improved with hyperbarics for 2 months. Pt states that he has limited sensation in his LE 2/2 neuropathy and can not endorse pain at this time. Pt states he has however noted increased swelling in the LLE. Pt otherwise denies: fevers, chills, syncope, lightheadedness, dizziness, headaches, neck pain, chest pain, shortness of breath, palpitations, back pain, abdominal pain, nausea, vomiting, diarrhea, constipation. 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 Cardio/Vascular: Yes: CAD, HTN, Other Renal/: Yes: Renal Failure, Renal Inusuff Infectious Disease: Yes: MRSA (Lt finger abscess) Endocrine: Yes: Diabetes Mellitus Dermatology: Yes: Cellulitis - Past Surgical History Past Surgical History: Yes: Bariatric Surgery, CABG, Carotid Endarterectomy - Alcohol/Substance Use Hx Alcohol Use: No History of Substance Use: reports: None - Smoking History Smoking history: Unknown if ever smoked Have you smoked in the past 12 months: No If you are a former smoker, when did you quit?: 25 years ago - Social History ADL: Independent History of Recent Travel: No Home Medications - Allergies Allergies/Adverse Reactions: Allergies Allergy/AdvReac Type Severity Reaction Status Date / Time levofloxacin [From Levaquin] Allergy Intermediate Verified 05/12/20 14:16 morphine Allergy Intermediate Vomiting Verified 05/12/20 14:16 codeine AdvReac Verified 05/12/20 14:16 egg AdvReac Vomiting Verified 05/12/20 14:16 egg yolk AdvReac Vomiting Verified 05/12/20 14:16 - Home Medications Home Medications: Ambulatory Orders Aspirin Coated [Ecotrin -] 81 mg PO DAILY 11/18/17 Zolpidem Tartrate [Ambien] 10 mg PO HS 01/06/18 Duloxetine HCl 40 mg PO DAILY 07/20/19 Pregabalin [Lyrica -] 50 mg PO BID MDD 2 07/20/19 Apixaban [Eliquis -] 5 mg PO BID 12/24/19 Gabapentin [Neurontin -] 100 mg PO BID 04/12/20 Insulin Aspart [Novolog] 0 unit SQ ASDIR 04/12/20 Amlodipine Besylate [Norvasc -] 5 mg PO DAILY #30 tablet 04/18/20 Atorvastatin Ca [Lipitor] 20 mg PO HS #30 tablet 04/18/20 Calcium 500Mg/Vit-D 200 Units [Os-Osvaldo 500+D -] 1 tab PO DAILY #30 tab 04/18/20 Collagenase Clostridium Hist. [Santyl -] 1 applic TP DAILY #1 tube 04/18/20 Metoprolol Succinate [Toprol XL -] 25 mg PO DAILY #30 tab.sr.24h 04/18/20 Pantoprazole Sodium [Protonix -] 40 mg PO DAILY #30 tablet.ec 04/18/20 Review of Systems - Review of Systems Constitutional: reports: No Symptoms Eyes: reports: No Symptoms HENT: reports: No Symptoms Neck: reports: No Symptoms Cardiovascular: reports: No Symptoms Respiratory: reports: No Symptoms Gastrointestinal: reports: No Symptoms Genitourinary: reports: No Symptoms Musculoskeletal: reports: Extremity Pain Integumentary: reports: Erythema Neurological: reports: No Symptoms Endocrine: reports: No Symptoms Hematology/Lymphatic: reports: No Symptoms Psychiatric: reports: No Symptoms Physical Exam Vital Signs: Vital Signs Temperature 98.5 F 05/13/20 10:00 Pulse Rate 82 05/13/20 10:00 Respiratory Rate 20 05/13/20 10:00 Blood Pressure 147/71 05/13/20 10:00 O2 Sat by Pulse Oximetry (%) 99 05/13/20 09:00 Constitutional: Yes: Calm, Mild Distress, Obese Eyes: Yes: Conjunctiva Clear, EOM Intact HENT: Yes: Atraumatic, Normocephalic Neck: Yes: Supple, Trachea Midline Cardiovascular: Yes: Regular Rate and Rhythm Respiratory: Yes: Regular, CTA Bilaterally Gastrointestinal: Yes: Normal Bowel Sounds, Soft Musculoskeletal: Yes: WNL Extremities: Yes: Other Integumentary: Yes: Other Wound/Incision: Yes: Other (wound on the ankle region ,infected probably extending to the bone) Neurological: Yes: Alert, Oriented Psychiatric: Yes: Alert, Oriented Labs: CBC, BMP 05/13/20 07:38 05/13/20 07:38 Imaging - Results X-ray: Report Reviewed, Image Reviewed Assessment/Plan 69 yo male with a history of DM, HTN, CAD, BOBY, CKD, HLD, diastolic CHF, atrial flutter, CVA, PAD, peripheral neuropathy and morbid obesity sent for admission for LLE ulcer and cellulitis. i am worried that the patient has osteo will need wound debridement further abx r/o osteo by mri wound care rest s per the team
--- NOTE | 2020-05-13 15:41 | PN ---
Progress Note, Physician History of Present Illness: stable no new issues - Current Medication List Current Medications: Active Medications Amlodipine Besylate (Norvasc -) 5 mg PO DAILY [facility] Last Admin: 05/13/20 09:07 Dose: 5 mg Documented by: Apixaban (Eliquis -) 5 mg PO BID [facility] Last Admin: 05/13/20 09:08 Dose: Not Given Documented by: Aspirin (Ecotrin -) 81 mg PO DAILY [facility] Last Admin: 05/13/20 09:08 Dose: 81 mg Documented by: Atorvastatin Calcium (Lipitor -) 20 mg PO [facility] Calcium Carbonate/Cholecalciferol (Os-Osvaldo 500+D -) 1 tab PO DAILY [facility] Last Admin: 05/13/20 09:07 Dose: 1 tab Documented by: Duloxetine HCl (Cymbalta -) 40 mg PO DAILY [facility] Last Admin: 05/13/20 09:07 Dose: 40 mg Documented by: Gabapentin (Neurontin -) 100 mg PO BID [facility] Last Admin: 05/13/20 09:07 Dose: 100 mg Documented by: Piperacillin Sod/Tazobactam (Sod 2.25 gm/ Dextrose) 50 mls @ 100 mls/hr IVPB Q8H-IV [facility]; Protocol Piperacillin Sod/Tazobactam (Sod 2.25 gm/ Dextrose) 50 mls @ 100 mls/hr IVPB Q8H-IV [facility]; Protocol Stop: 05/14/20 10:29 Piperacillin Sod/Tazobactam (Sod 2.25 gm/ Dextrose) 50 mls @ 100 mls/hr IVPB Q8H-IV [facility]; Protocol Insulin Aspart (Novolog Vial Sliding Scale -) 1 vial SQ ACHS [facility]; Protocol Last Admin: 05/13/20 11:30 Dose: 10 units Documented by: Metoprolol Succinate (Toprol Xl -) 25 mg PO DAILY [facility] Last Admin: 05/13/20 09:07 Dose: 25 mg Documented by: Pantoprazole Sodium (Protonix -) 40 mg PO DAILY [facility] Last Admin: 05/13/20 09:07 Dose: 40 mg Documented by: - Objective Vital Signs: Vital Signs Temperature 98.5 F 05/13/20 10:00 Pulse Rate 82 05/13/20 10:00 Respiratory Rate 20 05/13/20 10:00 Blood Pressure 147/71 05/13/20 10:00 O2 Sat by Pulse Oximetry (%) 99 05/13/20 09:00 Constitutional: Yes: No Distress, Calm, Obese Cardiovascular: Yes: S1, S2 Respiratory: Yes: Regular, CTA Bilaterally Gastrointestinal: Yes: Normal Bowel Sounds, Soft Musculoskeletal: Yes: WNL Extremities: Yes: WNL Wound/Incision: Yes: Dressing Dry and Intact Neurological: Yes: Alert, Oriented Psychiatric: Yes: Alert, Oriented Labs: CBC, BMP 05/13/20 07:38 05/13/20 07:38 INR, PTT INR 1.20 (0.83-1.09) H 05/12/20 14:48 Assessment/Plan 69 yo male with a history of DM, HTN, CAD, BOBY, CKD, HLD, diastolic CHF, atrial flutter, CVA, PAD, peripheral neuropathy and morbid obesity sent for admission for LLE ulcer and cellulitis. plan get an mri of the foot vascular/wound care abx ret as per the team
[2020-05-13] MEDS ORDERED: PIPERACILLIN/TAZOBACTAM 2.25 GM VIAL IVPB ONE (17:35)
[2020-05-13] MEDS: PIPERACILLIN/TAZOB 2.25 GM 2.25 GM in DEXTROSE 5%-WATER - 50 ML IVPB SCH (17:48)
[2020-05-13] MEDS ORDERED: PIPERACILLIN/TAZOB 3.375 GM 3.375 GM in DEXTROSE 5%-WATER - 50 ML IVPB SCH (18:00)
--- NOTE | 2020-05-13 21:32 | PN ---
Progress Note, Physician History of Present Illness: No new complaints - Current Medication List Current Medications: Active Medications Amlodipine Besylate (Norvasc -) 5 mg PO DAILY [facility] Last Admin: 05/13/20 09:07 Dose: 5 mg Documented by: Apixaban (Eliquis -) 5 mg PO BID [facility] Last Admin: 05/13/20 09:08 Dose: Not Given Documented by: Aspirin (Ecotrin -) 81 mg PO DAILY [facility] Last Admin: 05/13/20 09:08 Dose: 81 mg Documented by: Atorvastatin Calcium (Lipitor -) 20 mg PO [facility] Calcium Carbonate/Cholecalciferol (Os-Osvaldo 500+D -) 1 tab PO DAILY [facility] Last Admin: 05/13/20 09:07 Dose: 1 tab Documented by: Duloxetine HCl (Cymbalta -) 40 mg PO DAILY [facility] Last Admin: 05/13/20 09:07 Dose: 40 mg Documented by: Gabapentin (Neurontin -) 100 mg PO BID [facility] Last Admin: 05/13/20 09:07 Dose: 100 mg Documented by: Piperacillin Sod/Tazobactam (Sod 2.25 gm/ Dextrose) 50 mls @ 100 mls/hr IVPB Q8H-IV [facility]; Protocol Last Admin: 05/13/20 17:48 Dose: 100 mls/hr Documented by: Insulin Aspart (Novolog Vial Sliding Scale -) 1 vial SQ ACHS [facility]; Protocol Last Admin: 05/13/20 16:27 Dose: 2 units Documented by: Metoprolol Succinate (Toprol Xl -) 25 mg PO DAILY [facility] Last Admin: 05/13/20 09:07 Dose: 25 mg Documented by: Pantoprazole Sodium (Protonix -) 40 mg PO DAILY [facility] Last Admin: 05/13/20 09:07 Dose: 40 mg Documented by: - Objective Vital Signs: Vital Signs Temperature 98.5 F 05/13/20 10:00 Pulse Rate 82 05/13/20 10:00 Respiratory Rate 20 05/13/20 10:00 Blood Pressure 147/71 05/13/20 10:00 O2 Sat by Pulse Oximetry (%) 99 05/13/20 09:00 Cardiovascular: Yes: WNL, Regular Rate and Rhythm Respiratory: Yes: WNL, Regular, CTA Bilaterally Gastrointestinal: Yes: WNL, Normal Bowel Sounds, Soft, Abdomen, Obese Extremities: Yes: Other (Lt foot in dressing) Labs: CBC, BMP 05/13/20 07:38 05/13/20 07:38 INR, PTT INR 1.20 (0.83-1.09) H 05/12/20 14:48 Problem List - Problems (1) Atrial fibrillation Assessment/Plan: renal dosing of eliquis Rate controlled Code(s): I48.91 - UNSPECIFIED ATRIAL FIBRILLATION (2) Diabetic ulcer of left foot Assessment/Plan: Cont IV Zosyn/vanco Check cultures ID/Vascular consults Code(s): E11.621 - TYPE 2 DIABETES MELLITUS WITH FOOT ULCER; L97.529 - NON- PRESSURE CHRONIC ULCER OTH PRT LEFT FOOT W UNSP SEVERITY Qualifiers: Diabetic foot ulcer location: unspecified part of foot Diabetes mellitus type: type 2 Non-pressure ulcer stage: unspecified non-pressure ulcer stage Qualified Code(s): E11.621 - Type 2 diabetes mellitus with foot ulcer; L97.529 - Non-pressure chronic ulcer of other part of left foot with unspecified severity (3) Acute on chronic renal failure Assessment/Plan: As per renal Cont to monitor Monitor BUN/creatinine Code(s): N17.9 - ACUTE KIDNEY FAILURE, UNSPECIFIED; N18.9 - CHRONIC KIDNEY DISEASE, UNSPECIFIED (4) Hx of CABG Code(s): Z95.1 - PRESENCE OF AORTOCORONARY BYPASS GRAFT (5) PAD (peripheral artery disease) Code(s): I73.9 - PERIPHERAL VASCULAR DISEASE, UNSPECIFIED (6) Hyperlipidemia Code(s): E78.5 - HYPERLIPIDEMIA, UNSPECIFIED Qualifiers: Hyperlipidemia type: pure hypercholesterolemia Qualified Code(s): E78.00 - Pure hypercholesterolemia, unspecified; E78.0 - Pure hypercholesterolemia (7) Hypertension Code(s): I10 - ESSENTIAL (PRIMARY) HYPERTENSION Qualifiers: Hypertension type: essential hypertension Qualified Code(s): I10 - Essential (primary) hypertension
[2020-05-13] MEDS: ATORVASTATIN CA 20 MG TABLET (FP) PO SCH (21:45)
[2020-05-13] MEDS ORDERED: ZOLPIDEM TARTRATE 5 MG TABLET PO ONE (23:30)
[2020-05-14] MEDS ORDERED: DEXTROSE 5%-WATER - 50 ML IVPB ONE ×4 (02:00→17:25)
[2020-05-14] MEDS ORDERED: PIPERACILLIN/TAZOBACTAM 2.25 GM VIAL IVPB ONE ×4 (02:00→17:25)
[2020-05-14] MEDS: PIPERACILLIN/TAZOB 2.25 GM 2.25 GM in DEXTROSE 5%-WATER - 50 ML IVPB SCH ×2 (02:10→09:31)
[2020-05-14] MEDS: INSULIN SLIDING SCALE (NOVOLOG) 1 VIAL SQ SCH ×4 (06:17→21:46)
[2020-05-14 08:21] LABS: BASO % 0.4 % (0-2.0); EOS % 1.9 % (0-4.5); HEMATOCRIT 25.8 % (35.4-49); HEMOGLOBIN 8.2 GM/dL (11.7-16.9); MCH 27.6 pg (25.7-33.7); MCHC 31.7 g/dl (32.0-35.9); MEAN CELL VOLUME 87.1 fl (80-96); MONO % 8.7 % (3.8-10.2); PLATELET COUNT 215 K/MM3 (134-434); RBC 2.96 M/mm3 (4.00-5.60); RDW 16.7 % (11.9-15.9); WHITE BLOOD COUNT 7.5 K/mm3 (4.0-10.0)
[2020-05-14 08:49] LABS: ALBUMIN 2.2 g/dl (3.4-5.0); BILIRUBIN,TOTAL 0.5 mg/dL (0.2-1); BLOOD UREA NITROGEN 60.9 mg/dL (7-18); CALCIUM 7.4 mg/dL (8.5-10.1); CREATININE 5.3 mg/dL (0.55-1.3); MAGNESIUM 2.1 mg/dL (1.8-2.4); PHOSPHOROUS 4.1 mg/dL (2.5-4.9); POTASSIUM 4.2 mmol/L (3.5-5.1); TOT PROT 5.8 g/dl (6.4-8.2)
[2020-05-14] MEDS ORDERED: PT OWN MED DRAWER 7, Y5N ONE (08:58)
[2020-05-14] MEDS: ASPIRIN COATED 81 MG TABLET.EC PO SCH (09:31)
[2020-05-14] MEDS: PANTOPRAZOLE 40 MG TABLET PO SCH (09:31)
[2020-05-14] MEDS: metoPROLOL SUCCINATE 25 MG TAB.SR.24H (FP) PO SCH (09:31)
[2020-05-14] MEDS: APIXABAN 5 MG TABLET PO SCH ×2 (09:31→21:40)
[2020-05-14] MEDS: amLODIPine BESYLATE 5 MG TABLET (FP) PO SCH (09:31)
[2020-05-14] MEDS: CALCIUM 500MG/VIT-D 200 UNITS COMBO TABLET (FP) PO SCH (09:31)
[2020-05-14] MEDS: GABAPENTIN 100 MG CAPSULE PO SCH ×2 (09:31→21:40)
[2020-05-14] MEDS: DULoxetine HCL 20 MG CAPSULE.DR PO SCH (09:32)
[2020-05-14] MEDS ORDERED: INSULIN (NOVOLOG) ASPART 100 UNITS/ML 10ML VIAL ONE ×2 (10:59→21:45)
[2020-05-14] MEDS ORDERED: VANCOMYCIN 1 GM in D5W (PRE-DOCKED) 1,000 MG/250 ML IVPB ONE (11:10)
--- NOTE | 2020-05-14 12:03 | PN ---
Progress Note, Physician Chief Complaint: Leg ulcer History of Present Illness: Seen and examined at the bedside awake and alert offers no acute complaints making urine no swelling no pain in foot - Current Medication List Current Medications: Active Medications Amlodipine Besylate (Norvasc -) 5 mg PO DAILY [facility] Last Admin: 05/14/20 09:31 Dose: 5 mg Documented by: Apixaban (Eliquis -) 5 mg PO BID [facility] Last Admin: 05/14/20 09:31 Dose: Not Given Documented by: Aspirin (Ecotrin -) 81 mg PO DAILY [facility] Last Admin: 05/14/20 09:31 Dose: Not Given Documented by: Atorvastatin Calcium (Lipitor -) 20 mg PO HS [facility] Last Admin: 05/13/20 21:45 Dose: 20 mg Documented by: Calcium Carbonate/Cholecalciferol (Os-Osvaldo 500+D -) 1 tab PO DAILY [facility] Last Admin: 05/14/20 09:31 Dose: 1 tab Documented by: Duloxetine HCl (Cymbalta -) 40 mg PO DAILY [facility] Last Admin: 05/14/20 09:32 Dose: 40 mg Documented by: Gabapentin (Neurontin -) 100 mg PO BID [facility] Last Admin: 05/14/20 09:31 Dose: 100 mg Documented by: Piperacillin Sod/Tazobactam (Sod 2.25 gm/ Dextrose) 50 mls @ 100 mls/hr IVPB Q8H-IV [facility]; Protocol Last Admin: 05/14/20 09:31 Dose: 100 mls/hr Documented by: Insulin Aspart (Novolog Vial Sliding Scale -) 1 vial SQ ACHS [facility]; Protocol Last Admin: 05/14/20 11:16 Dose: 8 units Documented by: Metoprolol Succinate (Toprol Xl -) 25 mg PO DAILY [facility] Last Admin: 05/14/20 09:31 Dose: 25 mg Documented by: Pantoprazole Sodium (Protonix -) 40 mg PO DAILY [facility] Last Admin: 05/14/20 09:31 Dose: 40 mg Documented by: - Objective Vital Signs: Vital Signs Temperature 99.7 F H 05/14/20 10:00 Pulse Rate 92 H 05/14/20 10:00 Respiratory Rate 05/14/20 10:00 Blood Pressure 133/66 05/14/20 10:00 O2 Sat by Pulse Oximetry (%) 98 05/14/20 09:00 Constitutional: Yes: No Distress HENT: Yes: Atraumatic Neck: Yes: Supple Cardiovascular: Yes: Regular Rate and Rhythm Respiratory: Yes: Regular Gastrointestinal: Yes: Soft Edema: No Labs: CBC, BMP 05/14/20 07:38 05/14/20 07:38 INR, PTT INR 1.20 (0.83-1.09) H 05/12/20 14:48 Assessment/Plan 69 year old male with PMHx of CKD stage 5 (Last outpatient Cr 5), hypertension, DM, PVD, CAD s/p CABG who was sent in from the wound care clinic with LE wound and found to have suspected cellulitis. 1. CKD stage 5 not yet on dialysis 2. LE wound 3. Cellulitis of the lower extremity 4. Hypertension 5. DM 6. Chronic anemia Renal function stable Despite low eGFR there is no acute indication for renal replacement therapy at this time. f/u iron levels and trend H/H. S/p ANNI yesterday continue antibiotics as per primary team. Vanco level 11 today, will redose. Trend renal function and electrolytes daily Vascular follow up Jonah Painting DO
--- NOTE | 2020-05-14 12:09 | PN ---
Progress Note, Physician History of Present Illness: stable no complaints - Current Medication List Current Medications: Active Medications Amlodipine Besylate (Norvasc -) 5 mg PO DAILY [facility] Last Admin: 05/14/20 09:31 Dose: 5 mg Documented by: Apixaban (Eliquis -) 5 mg PO BID [facility] Last Admin: 05/14/20 09:31 Dose: Not Given Documented by: Aspirin (Ecotrin -) 81 mg PO DAILY [facility] Last Admin: 05/14/20 09:31 Dose: Not Given Documented by: Atorvastatin Calcium (Lipitor -) 20 mg PO HS [facility] Last Admin: 05/13/20 21:45 Dose: 20 mg Documented by: Calcium Carbonate/Cholecalciferol (Os-Osvaldo 500+D -) 1 tab PO DAILY [facility] Last Admin: 05/14/20 09:31 Dose: 1 tab Documented by: Duloxetine HCl (Cymbalta -) 40 mg PO DAILY [facility] Last Admin: 05/14/20 09:32 Dose: 40 mg Documented by: Gabapentin (Neurontin -) 100 mg PO BID [facility] Last Admin: 05/14/20 09:31 Dose: 100 mg Documented by: Piperacillin Sod/Tazobactam (Sod 2.25 gm/ Dextrose) 50 mls @ 100 mls/hr IVPB Q8H-IV [facility]; Protocol Last Admin: 05/14/20 09:31 Dose: 100 mls/hr Documented by: Insulin Aspart (Novolog Vial Sliding Scale -) 1 vial SQ ACHS [facility]; Protocol Last Admin: 05/14/20 11:16 Dose: 8 units Documented by: Metoprolol Succinate (Toprol Xl -) 25 mg PO DAILY [facility] Last Admin: 05/14/20 09:31 Dose: 25 mg Documented by: Pantoprazole Sodium (Protonix -) 40 mg PO DAILY [facility] Last Admin: 05/14/20 09:31 Dose: 40 mg Documented by: - Objective Vital Signs: Vital Signs Temperature 99.7 F H 05/14/20 10:00 Pulse Rate 92 H 05/14/20 10:00 Respiratory Rate 20 05/14/20 10:00 Blood Pressure 133/66 05/14/20 10:00 O2 Sat by Pulse Oximetry (%) 98 05/14/20 09:00 Constitutional: Yes: No Distress, Calm Cardiovascular: Yes: S1, S2 Respiratory: Yes: Regular, CTA Bilaterally Musculoskeletal: Yes: WNL Extremities: Yes: Other Wound/Incision: Yes: Dressing Dry and Intact Psychiatric: Yes: Alert, Oriented Labs: CBC, BMP 05/14/20 07:38 05/14/20 07:38 INR, PTT INR 1.20 (0.83-1.09) H 05/12/20 14:48 Assessment/Plan 69 yo male with a history of DM, HTN, CAD, BOBY, CKD, HLD, diastolic CHF, atrial flutter, CVA, PAD, peripheral neuropathy and morbid obesity sent for admission for LLE ulcer and cellulitis. plan continue current mgmt wound care vascular input rest as per the team
[2020-05-14] MEDS ORDERED: PIPERACILLIN/TAZOB 2.25 GM 2.25 GM in DEXTROSE 5%-WATER - 50 ML IVPB SCH (18:00)
--- NOTE | 2020-05-14 21:23 | PN ---
Progress Note, Physician History of Present Illness: Pt complains of tinnitus - Current Medication List Current Medications: Active Medications Amlodipine Besylate (Norvasc -) 5 mg PO DAILY [facility] Last Admin: 05/14/20 09:31 Dose: 5 mg Documented by: Apixaban (Eliquis -) 5 mg PO BID [facility] Last Admin: 05/14/20 09:31 Dose: Not Given Documented by: Aspirin (Ecotrin -) 81 mg PO DAILY [facility] Last Admin: 05/14/20 09:31 Dose: Not Given Documented by: Atorvastatin Calcium (Lipitor -) 20 mg PO HS [facility] Last Admin: 05/13/20 21:45 Dose: 20 mg Documented by: Calcium Carbonate/Cholecalciferol (Os-Osvaldo 500+D -) 1 tab PO DAILY [facility] Last Admin: 05/14/20 09:31 Dose: 1 tab Documented by: Duloxetine HCl (Cymbalta -) 40 mg PO DAILY [facility] Last Admin: 05/14/20 09:32 Dose: 40 mg Documented by: Gabapentin (Neurontin -) 100 mg PO BID [facility] Last Admin: 05/14/20 09:31 Dose: 100 mg Documented by: Piperacillin Sod/Tazobactam (Sod 2.25 gm/ Dextrose) 50 mls @ 100 mls/hr IVPB Q8H-IV [facility]; Protocol Last Admin: 05/14/20 09:31 Dose: 100 mls/hr Documented by: Insulin Aspart (Novolog Vial Sliding Scale -) 1 vial SQ ACHS [facility]; Protocol Last Admin: 05/14/20 17:13 Dose: 6 units Documented by: Metoprolol Succinate (Toprol Xl -) 25 mg PO DAILY [facility] Last Admin: 05/14/20 09:31 Dose: 25 mg Documented by: Pantoprazole Sodium (Protonix -) 40 mg PO DAILY [facility] Last Admin: 05/14/20 09:31 Dose: 40 mg Documented by: - Objective Vital Signs: Vital Signs Temperature 99.7 F H 05/14/20 18:54 Pulse Rate 77 05/14/20 18:54 Respiratory Rate 20 05/14/20 18:54 Blood Pressure 138/69 05/14/20 18:54 O2 Sat by Pulse Oximetry (%) 98 05/14/20 09:00 Neck: Yes: WNL, Supple Cardiovascular: Yes: WNL, Regular Rate and Rhythm Respiratory: Yes: WNL, Regular, CTA Bilaterally Gastrointestinal: Yes: WNL, Normal Bowel Sounds, Soft Extremities: Yes: Other (LLE ulcer) Labs: CBC, BMP 05/14/20 07:38 05/14/20 07:38 INR, PTT INR 1.20 (0.83-1.09) H 05/12/20 14:48 Problem List - Problems (1) Diabetic ulcer of left foot Assessment/Plan: Cont IV antibxs Vascular consult Code(s): E11.621 - TYPE 2 DIABETES MELLITUS WITH FOOT ULCER; L97.529 - NON- PRESSURE CHRONIC ULCER OTH PRT LEFT FOOT W UNSP SEVERITY Qualifiers: Diabetic foot ulcer location: unspecified part of foot Diabetes mellitus type: type 2 Non-pressure ulcer stage: unspecified non-pressure ulcer stage Qualified Code(s): E11.621 - Type 2 diabetes mellitus with foot ulcer; L97.529 - Non-pressure chronic ulcer of other part of left foot with unspecified severity (2) Acute on chronic renal failure Assessment/Plan: As per renal Monitor BUN/creatinine Code(s): N17.9 - ACUTE KIDNEY FAILURE, UNSPECIFIED; N18.9 - CHRONIC KIDNEY DISEASE, UNSPECIFIED (3) Atrial fibrillation Assessment/Plan: Eliquis on hold for surgery Rate controlled Code(s): I48.91 - UNSPECIFIED ATRIAL FIBRILLATION (4) CHF (congestive heart failure) Code(s): I50.9 - HEART FAILURE, UNSPECIFIED (5) Diabetic neuropathy Code(s): E11.40 - TYPE 2 DIABETES MELLITUS WITH DIABETIC NEUROPATHY, UNSP (6) Hx of CABG Code(s): Z95.1 - PRESENCE OF AORTOCORONARY BYPASS GRAFT (7) PAD (peripheral artery disease) Code(s): I73.9 - PERIPHERAL VASCULAR DISEASE, UNSPECIFIED (8) CAD (coronary artery disease) Code(s): I25.10 - ATHSCL HEART DISEASE OF [place] CORONARY ARTERY W/O ANG PCTRS Qualifiers: Coronary Disease-Associated Artery/Lesion type: [place] artery [place] vs. transplanted heart: [place] heart Associated angina: without angina Qualified Code(s): I25.10 - Atherosclerotic heart disease of [place] coronary artery without angina pectoris (9) Diabetes mellitus Code(s): E11.9 - TYPE 2 DIABETES MELLITUS WITHOUT COMPLICATIONS Qualifiers: Diabetes mellitus type: type 2 Diabetes mellitus ad terminal makeup operator insulin use: w ithout fpc use Diabetes mellitus complication status: with circulatory complication Diabetes mellitus complication detail: with peripheral angiopathy without gangrene Qualified Code(s): E11.51 - Type 2 diabetes mellitus with diabetic peripheral angiopathy without gangrene (10) Hyperlipidemia Code(s): E78.5 - HYPERLIPIDEMIA, UNSPECIFIED Qualifiers: Hyperlipidemia type: pure hypercholesterolemia Qualified Code(s): E78.00 - Pure hypercholesterolemia, unspecified; E78.0 - Pure hypercholesterolemia (11) Hypertension Code(s): I10 - ESSENTIAL (PRIMARY) HYPERTENSION Qualifiers: Hypertension type: essential hypertension Qualified Code(s): I10 - Essential (primary) hypertension
[2020-05-14] MEDS: ATORVASTATIN CA 20 MG TABLET (FP) PO SCH (21:40)
[2020-05-14] MEDS ORDERED: ZOLPIDEM TARTRATE 5 MG TABLET PO PRN (22:36)
[2020-05-15] MEDS ORDERED: PIPERACILLIN/TAZOBACTAM 2.25 GM VIAL IVPB ONE ×3 (01:49→17:13)
[2020-05-15] MEDS ORDERED: DEXTROSE 5%-WATER - 50 ML IVPB ONE ×3 (01:50→17:13)
[2020-05-15] MEDS: PIPERACILLIN/TAZOB 2.25 GM 2.25 GM in DEXTROSE 5%-WATER - 50 ML IVPB SCH ×4 (02:15→17:15)
[2020-05-15] MEDS: INSULIN SLIDING SCALE (NOVOLOG) 1 VIAL SQ SCH ×4 (07:24→21:30)
[2020-05-15 08:33] LABS: BASO % 0.9 % (0-2.0); EOS % 1.5 % (0-4.5); HEMATOCRIT 24.2 % (35.4-49); HEMOGLOBIN 7.8 GM/dL (11.7-16.9); MCH 27.9 pg (25.7-33.7); MCHC 32.1 g/dl (32.0-35.9); MEAN CELL VOLUME 86.8 fl (80-96); MEAN PLT VOLUME 9.4 fl (7.5-11.1); MONO % 11.8 % (3.8-10.2); NEUT % 73.8 % (42.8-82.8); PLATELET COUNT 171 K/MM3 (134-434); RBC 2.79 M/mm3 (4.00-5.60); RDW 16.3 % (11.9-15.9); WHITE BLOOD COUNT 6.7 K/mm3 (4.0-10.0)
[2020-05-15 08:59] LABS: BILIRUBIN,TOTAL 0.5 mg/dL (0.2-1); BLOOD UREA NITROGEN 58.9 mg/dL (7-18); CALCIUM 7.3 mg/dL (8.5-10.1); CREATININE 5.4 mg/dL (0.55-1.3); MAGNESIUM 1.9 mg/dL (1.8-2.4); POTASSIUM 4.2 mmol/L (3.5-5.1); TOT PROT 5.6 g/dl (6.4-8.2)
[2020-05-15] MEDS: amLODIPine BESYLATE 5 MG TABLET (FP) PO SCH (10:24)
[2020-05-15] MEDS: GABAPENTIN 100 MG CAPSULE PO SCH ×2 (10:24→21:31)
[2020-05-15] MEDS: ASPIRIN COATED 81 MG TABLET.EC PO SCH (10:24)
[2020-05-15] MEDS: PANTOPRAZOLE 40 MG TABLET PO SCH (10:24)
[2020-05-15] MEDS: metoPROLOL SUCCINATE 25 MG TAB.SR.24H (FP) PO SCH (10:24)
[2020-05-15] MEDS: CALCIUM 500MG/VIT-D 200 UNITS COMBO TABLET (FP) PO SCH (10:24)
[2020-05-15] MEDS: APIXABAN 2.5 MG TABLET PO SCH ×2 (10:24→21:31)
[2020-05-15] MEDS: DULoxetine HCL 20 MG CAPSULE.DR PO SCH (10:26)
--- NOTE | 2020-05-15 14:08 | PN ---
Progress Note (short form) - Note Progress Note: Vascular Surgery Pt seen and examined. Left foot ulcer with cellulitis. Pt on zosyn. MRI without contrast ordered to check for osteo. Will follow Matt Garcia dO
--- NOTE | 2020-05-15 15:31 | PN ---
Progress Note, Physician Chief Complaint: Leg ulcer History of Present Illness: Seen and examined at the bedside awake and alert offers no acute complaints at this time. Denies any shortness of breath, chest pain, dyspnea on exertion, abdominal pain, nausea, vomiting or diarrhea. He has no pain in his lower extremity secondary to his neuropathy Reports making urine without difficulty. Appetite is good. No swelling - Current Medication List Current Medications: Active Medications Amlodipine Besylate (Norvasc -) 5 mg PO DAILY [facility] Last Admin: 05/15/20 10:24 Dose: 5 mg Documented by: Apixaban (Eliquis -) 2.5 mg PO BID [facility] Last Admin: 05/15/20 10:24 Dose: 2.5 mg Documented by: Aspirin (Ecotrin -) 81 mg PO DAILY [facility] Last Admin: 05/15/20 10:24 Dose: 81 mg Documented by: Atorvastatin Calcium (Lipitor -) 20 mg PO HS [facility] Last Admin: 05/14/20 21:40 Dose: 20 mg Documented by: Calcium Carbonate/Cholecalciferol (Os-Osvaldo 500+D -) 1 tab PO DAILY [facility] Last Admin: 05/15/20 10:24 Dose: 1 tab Documented by: Duloxetine HCl (Cymbalta -) 40 mg PO DAILY [facility] Last Admin: 05/15/20 10:26 Dose: 40 mg Documented by: Gabapentin (Neurontin -) 100 mg PO BID [facility] Last Admin: 05/15/20 10:24 Dose: 100 mg Documented by: Piperacillin Sod/Tazobactam (Sod 2.25 gm/ Dextrose) 50 mls @ 100 mls/hr IVPB Q8H-IV [facility]; Protocol Last Admin: 05/15/20 10:24 Dose: 100 mls/hr Documented by: Insulin Aspart (Novolog Vial Sliding Scale -) 1 vial SQ ACHS [facility]; Protocol Last Admin: 05/15/20 12:13 Dose: 6 units Documented by: Metoprolol Succinate (Toprol Xl -) 25 mg PO DAILY [facility] Last Admin: 05/15/20 10:24 Dose: 25 mg Documented by: Pantoprazole Sodium (Protonix -) 40 mg PO DAILY [facility] Last Admin: 05/15/20 10:24 Dose: 40 mg Documented by: Zolpidem Tartrate (Ambien -) 5 mg PO HS PRN PRN Reason: INSOMNIA - Objective Vital Signs: Vital Signs Temperature 100.3 F H 05/15/20 14:16 Pulse Rate 84 05/15/20 14:16 Respiratory Rate 20 05/15/20 14:16 Blood Pressure 133/65 05/15/20 14:16 O2 Sat by Pulse Oximetry (%) 98 05/14/20 21:00 Constitutional: Yes: No Distress HENT: Yes: Atraumatic Neck: Yes: Supple Respiratory: Yes: Regular Gastrointestinal: Yes: Soft Extremities: Yes: Other (foot in dressing). No: Cyanosis Edema: No Neurological: Yes: Alert, Oriented Labs: CBC, BMP 05/15/20 07:57 05/15/20 07:57 INR, PTT INR 1.20 (0.83-1.09) H 05/12/20 14:48 Assessment/Plan 69 year old male with PMHx of CKD stage 5 (Last outpatient Cr 5), hypertension, DM, PVD, CAD s/p CABG who was sent in from the wound care clinic with LE wound and found to have suspected cellulitis. 1. CKD stage 5 not yet on dialysis 2. LE wound 3. Cellulitis of the lower extremity 4. Hypertension 5. DM 6. Chronic anemia Renal function stable Despite load EGFR there is no acute need for renal placement therapy. We will need to monitor renal function very closely. Avoid nephrotoxins such as NSAIDs or IV contrast. Patient will need access placement for future dialysis as an outpatient. Trend H&H. Status post revision earlier this admission. Will re-dose of Epogen tomorrow. Will defer an iron given acute infection. Trend renal function and electrolytes daily. Jonah Painting DO
[2020-05-15] MEDS: ZOLPIDEM TARTRATE 5 MG TABLET PO PRN (21:31)
[2020-05-15] MEDS: ATORVASTATIN CA 20 MG TABLET (FP) PO SCH (21:31)
--- NOTE | 2020-05-15 22:00 | PN ---
Progress Note, Physician History of Present Illness: Pt has penile implant and is questionable if he can have MRI - Current Medication List Current Medications: Active Medications Amlodipine Besylate (Norvasc -) 5 mg PO DAILY [facility] Last Admin: 05/15/20 10:24 Dose: 5 mg Documented by: Apixaban (Eliquis -) 2.5 mg PO BID [facility] Last Admin: 05/15/20 21:31 Dose: 2.5 mg Documented by: Aspirin (Ecotrin -) 81 mg PO DAILY [facility] Last Admin: 05/15/20 10:24 Dose: 81 mg Documented by: Atorvastatin Calcium (Lipitor -) 20 mg PO HS [facility] Last Admin: 05/15/20 21:31 Dose: 20 mg Documented by: Calcium Carbonate/Cholecalciferol (Os-Osvaldo 500+D -) 1 tab PO DAILY [facility] Last Admin: 05/15/20 10:24 Dose: 1 tab Documented by: Duloxetine HCl (Cymbalta -) 40 mg PO DAILY [facility] Last Admin: 05/15/20 10:26 Dose: 40 mg Documented by: Epoetin Errol (Procrit -) 20,000 unit SQ ONCE ONE Stop: 05/16/20 10:01 Gabapentin (Neurontin -) 100 mg PO BID [facility] Last Admin: 05/15/20 21:31 Dose: 100 mg Documented by: Piperacillin Sod/Tazobactam (Sod 2.25 gm/ Dextrose) 50 mls @ 100 mls/hr IVPB Q8H-IV [facility]; Protocol Last Admin: 05/15/20 17:15 Dose: 100 mls/hr Documented by: Insulin Aspart (Novolog Vial Sliding Scale -) 1 vial SQ ACHS [facility]; Protocol Last Admin: 05/15/20 21:30 Dose: 8 units Documented by: Metoprolol Succinate (Toprol Xl -) 25 mg PO DAILY [facility] Last Admin: 05/15/20 10:24 Dose: 25 mg Documented by: Pantoprazole Sodium (Protonix -) 40 mg PO DAILY [facility] Last Admin: 05/15/20 10:24 Dose: 40 mg Documented by: Zolpidem Tartrate (Ambien -) 5 mg PO HS PRN PRN Reason: INSOMNIA Last Admin: 05/15/20 21:31 Dose: 5 mg Documented by: - Objective Vital Signs: Vital Signs Temperature 98.7 F 07/13/20 19:21 Pulse Rate 90 05/15/20 19:21 Respiratory Rate 20 05/15/20 14:16 Blood Pressure 145/58 L 05/15/20 19:21 O2 Sat by Pulse Oximetry (%) 98 05/14/20 21:00 Cardiovascular: Yes: WNL, Regular Rate and Rhythm Respiratory: Yes: WNL, Regular, CTA Bilaterally Gastrointestinal: Yes: WNL, Normal Bowel Sounds, Soft Labs: CBC, BMP 05/15/20 07:57 05/15/20 07:57 INR, PTT INR 1.20 (0.83-1.09) H 05/12/20 14:48 Problem List - Problems (1) Diabetic ulcer of left foot Assessment/Plan: Cont IV Zosyn/Vanco Wound culture (+) for enterobacter/Grp D strept Will need to find out if pt can have MRI w/ penile implant Code(s): E11.621 - TYPE 2 DIABETES MELLITUS WITH FOOT ULCER; L97.529 - NON- PRESSURE CHRONIC ULCER OTH PRT LEFT FOOT W UNSP SEVERITY Qualifiers: Diabetic foot ulcer location: unspecified part of foot Diabetes mellitus type: type 2 Non-pressure ulcer stage: unspecified non-pressure ulcer stage Qualified Code(s): E11.621 - Type 2 diabetes mellitus with foot ulcer; L97.529 - Non-pressure chronic ulcer of other part of left foot with unspecified severity (2) Acute on chronic renal failure Assessment/Plan: As per renal Monitor BUN/creatinine Code(s): N17.9 - ACUTE KIDNEY FAILURE, UNSPECIFIED; N18.9 - CHRONIC KIDNEY DISEASE, UNSPECIFIED (3) Atrial fibrillation Assessment/Plan: renal dosing of eliquis Rate controlled Code(s): I48.91 - UNSPECIFIED ATRIAL FIBRILLATION (4) CHF (congestive heart failure) Code(s): I50.9 - HEART FAILURE, UNSPECIFIED (5) Diabetic neuropathy Code(s): E11.40 - TYPE 2 DIABETES MELLITUS WITH DIABETIC NEUROPATHY, UNSP (6) Hx of CABG Code(s): Z95.1 - PRESENCE OF AORTOCORONARY BYPASS GRAFT (7) PAD (peripheral artery disease) Code(s): I73.9 - PERIPHERAL VASCULAR DISEASE, UNSPECIFIED (8) CAD (coronary artery disease) Code(s): I25.10 - ATHSCL HEART DISEASE OF [place] CORONARY ARTERY W/O ANG PCTRS Qualifiers: Coronary Disease-Associated Artery/Lesion type: [place] artery [place] vs. transplanted heart: [place] Associated angina: without angina Qualified Code(s): I25.10 - Atherosclerotic heart disease of [place] coronary artery without angina pectoris (9) Diabetes mellitus Assessment/Plan: Cont sliding scale w/ coverage Code(s): E11.9 - TYPE 2 DIABETES MELLITUS WITHOUT COMPLICATIONS Qualifiers: Diabetes mellitus type: type 2 Diabetes mellitus senior living insulin use: without senior living use Diabetes mellitus complication status: with circulatory complication Diabetes mellitus complication detail: with peripheral angiopathy without gangrene Qualified Code(s): E11.51 - Type 2 diabetes mellitus with diabetic peripheral angiopathy without gangrene (10) Hyperlipidemia Code(s): E78.5 - HYPERLIPIDEMIA, UNSPECIFIED Qualifiers: Hyperlipidemia type: pure hypercholesterolemia Qualified Code(s): E78.00 - Pure hypercholesterolemia, unspecified; E78.0 - Pure hypercholesterolemia (11) Hypertension Code(s): I10 - ESSENTIAL (PRIMARY) HYPERTENSION Qualifiers: Hypertension type: essential hypertension Qualified Code(s): I10 - Essential (primary) hypertension
[2020-05-16] MEDS ORDERED: DEXTROSE 5%-WATER - 50 ML IVPB ONE ×3 (01:34→16:39)
[2020-05-16] MEDS ORDERED: PIPERACILLIN/TAZOBACTAM 2.25 GM VIAL IVPB ONE ×3 (01:34→16:39)
[2020-05-16] MEDS: PIPERACILLIN/TAZOB 2.25 GM 2.25 GM in DEXTROSE 5%-WATER - 50 ML IVPB SCH ×3 (01:52→18:24)
[2020-05-16] MEDS: INSULIN SLIDING SCALE (NOVOLOG) 1 VIAL SQ SCH ×4 (06:28→21:10)
[2020-05-16 07:58] LABS: BASO % 0.9 % (0-2.0); EOS % 2.3 % (0-4.5); HEMATOCRIT 23.4 % (35.4-49); HEMOGLOBIN 7.5 GM/dL (11.7-16.9); LYMPH % 14.7 % (8-40); MCH 27.6 pg (25.7-33.7); MCHC 32.1 g/dl (32.0-35.9); MEAN CELL VOLUME 85.9 fl (80-96); MEAN PLT VOLUME 9.5 fl (7.5-11.1); MONO % 11.5 % (3.8-10.2); NEUT % 70.6 % (42.8-82.8); PLATELET COUNT 165 K/MM3 (134-434); RBC 2.72 M/mm3 (4.00-5.60); RDW 16.1 % (11.9-15.9); WHITE BLOOD COUNT 7.6 K/mm3 (4.0-10.0)
[2020-05-16 08:30] LABS: BLOOD UREA NITROGEN 59.9 mg/dL (7-18); CALCIUM 7.4 mg/dL (8.5-10.1); CREATININE 5.9 mg/dL (0.55-1.3); PHOSPHOROUS 4.8 mg/dL (2.5-4.9); POTASSIUM 3.8 mmol/L (3.5-5.1)
[2020-05-16] MEDS: ASPIRIN COATED 81 MG TABLET.EC PO SCH (09:32)
[2020-05-16] MEDS: PANTOPRAZOLE 40 MG TABLET PO SCH (09:32)
[2020-05-16] MEDS: metoPROLOL SUCCINATE 25 MG TAB.SR.24H (FP) PO SCH (09:40)
[2020-05-16] MEDS: CALCIUM 500MG/VIT-D 200 UNITS COMBO TABLET (FP) PO SCH (09:40)
[2020-05-16] MEDS: APIXABAN 2.5 MG TABLET PO SCH ×2 (09:40→21:09)
[2020-05-16] MEDS: amLODIPine BESYLATE 5 MG TABLET (FP) PO SCH (09:40)
[2020-05-16] MEDS: GABAPENTIN 100 MG CAPSULE PO SCH ×2 (09:40→21:09)
[2020-05-16] MEDS: DULoxetine HCL 20 MG CAPSULE.DR PO SCH (09:46)
[2020-05-16] MEDS ORDERED: EPOETIN ALFA 20,000 UNIT/1 ML VIAL SQ ONE (10:00)
--- NOTE | 2020-05-16 10:22 | CON.PULM ---
Consult Consult Specialty:: PULMONARY Referred by:: Dr Avila Reason for Consultation:: shortness of breath - History of Present Illness Chief Complaint: leg pain History of Present Illness: 70yo male with h/o HTN, DM, CAD s/p CABG, PAD, CKD V who was sent from the wound care clinic for cellulitis. Being treated with antibiotics, overnight, became acutely hypoxic and short of breath. He states he heard wheezing from his chest, now on NRB. Reports a nonproductive cough and had low grade temps during the day yesterday. He is a remote smoker, smoked about 10 years total. No history of asthma or COPD. CXR overnight showing new bilateral infiltrates and congestion. 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 Cardio/Vascular: Yes: CAD, HTN, Other Renal/: Yes: Renal Failure, Renal Inusuff Infectious Disease: Yes: MRSA (Lt finger abscess) Endocrine: Yes: Diabetes Mellitus Dermatology: Yes: Cellulitis - Past Surgical History Past Surgical History: Yes: Bariatric Surgery, CABG, Carotid Endarterectomy - Alcohol/Substance Use Hx Alcohol Use: No History of Substance Use: reports: None - Smoking History Smoking history: Unknown if ever smoked Have you smoked in the past 12 months: No If you are a former smoker, when did you quit?: 25 years ago - Social History ADL: Independent History of Recent Travel: No Home Medications - Allergies Allergies/Adverse Reactions: Allergies Allergy/AdvReac Type Severity Reaction Status Date / Time levofloxacin [From Levaquin] Allergy Intermediate Verified 05/12/20 14:16 morphine Allergy Intermediate Vomiting Verified 05/12/20 14:16 codeine AdvReac Verified 05/12/20 14:16 egg AdvReac Vomiting Verified 05/12/20 14:16 egg yolk AdvReac Vomiting Verified 05/12/20 14:16 - Home Medications Home Medications: Ambulatory Orders Aspirin Coated [Ecotrin -] 81 mg PO DAILY 11/18/17 Zolpidem Tartrate [Ambien] 10 mg PO HS 01/06/18 Duloxetine HCl 40 mg PO DAILY 07/20/19 Pregabalin [Lyrica -] 50 mg PO BID MDD 2 07/20/19 Apixaban [Eliquis -] 5 mg PO BID 12/24/19 Gabapentin [Neurontin -] 100 mg PO BID 04/12/20 Insulin Aspart [Novolog] 0 unit SQ ASDIR 04/12/20 Amlodipine Besylate [Norvasc -] 5 mg PO DAILY #30 tablet 04/18/20 Atorvastatin Ca [Lipitor] 20 mg PO HS #30 tablet 04/18/20 Calcium 500Mg/Vit-D 200 Units [Os-Osvaldo 500+D -] 1 tab PO DAILY #30 tab 04/18/20 Collagenase Clostridium Hist. [Santyl -] 1 applic TP DAILY #1 tube 04/18/20 Metoprolol Succinate [Toprol XL -] 25 mg PO DAILY #30 tab.sr.24h 04/18/20 Pantoprazole Sodium [Protonix -] 40 mg PO DAILY #30 tablet.ec 04/18/20 Review of Systems - Review of Systems Constitutional: reports: Weakness. denies: Chills Eyes: denies: Recent Change in Vision HENT: reports: Ear Pain, Hearing Loss. denies: Throat Pain Neck: denies: Tenderness Cardiovascular: reports: Shortness of Breath. denies: Chest Pain, Edema, Palpitations Respiratory: reports: Cough, SOB, Wheezing. denies: Hemoptysis Gastrointestinal: denies: Abdominal Pain, Nausea, Vomiting Genitourinary: denies: Dysuria, Hematuria Neurological: denies: Dizziness, Headache Endocrine: denies: Unexplained Weight Loss Physical Exam Vital Sings: Vital Signs Temperature 99 F 05/16/20 06:26 Pulse Rate 81 05/16/20 06:26 Respiratory Rate 20 05/16/20 06:26 Blood Pressure 143/76 05/16/20 06:26 O2 Sat by Pulse Oximetry (%) 95 05/15/20 21:00 Constitutional: Yes: Anxious Eyes: Yes: Conjunctiva Clear, EOM Intact HENT: Yes: Atraumatic, Normocephalic Neck: Yes: Supple, Trachea Midline Cardiovascular: Yes: Regular Rate and Rhythm Respiratory: Yes: Rales, Rhonchi ...Clubbing: No Gastrointestinal: Yes: Normal Bowel Sounds, Soft. No: Tenderness Edema: No Neurological: Yes: Alert, Oriented Labs: CBC, BMP 05/16/20 07:25 05/16/20 07:25 Imaging - Results Chest X-ray: Report Reviewed, Image Reviewed (bilateral infiltrates, pulmonary vascular congestion) Assessment/Plan Acute on Chronic Diastolic Heart Failure Acute on Chronic Renal Failure Cellulitis r/o Pneumonia CAD s/p CABG HTN DM PAD - IV lasix - monitor urine output, creatinine - O2 to keep SpO2 >90% - inhaled bronchodilators - continue antibiotics - monitor CXR - DVT prophylaxis Thank you for this consult Jean Paul Judge MD
[2020-05-16] MEDS ORDERED: ALBUTEROL SO4 0.083% IH SOL 2.5 MG/3 ML VIAL.NEB. NEB PRN (10:30)
[2020-05-16] MEDS ORDERED: FUROSEMIDE 40 MG/4 ML INJECTABLE VIAL IVPUSH ONE (10:30)
[2020-05-16] MEDS: ALBUTEROL SO4 2.5/IPRATROPIUM 0.5 INH SOL 3 ML VIAL.NEB. NEB SCH ×3 (11:10→20:00)
--- NOTE | 2020-05-16 13:56 | PN ---
Progress Note, Physician History of Present Illness: stable still some sob - Current Medication List Current Medications: Active Medications Albuterol Sulfate (Ventolin 0.083% Nebulizer Soln -) 1 amp NEB Q4H PRN PRN Reason: SHORT OF BREATH/WHEEZING Albuterol/Ipratropium (Duoneb -) 1 amp NEB RQID [facility] Last Admin: 05/16/20 11:10 Dose: 1 amp Documented by: Amlodipine Besylate (Norvasc -) 5 mg PO DAILY [facility] Last Admin: 05/16/20 09:40 Dose: 5 mg Documented by: Apixaban (Eliquis -) 2.5 mg PO BID [facility] Last Admin: 05/16/20 09:40 Dose: 2.5 mg Documented by: Aspirin (Ecotrin -) 81 mg PO DAILY [facility] Last Admin: 05/16/20 09:32 Dose: 81 mg Documented by: Atorvastatin Calcium (Lipitor -) 20 mg PO HS [facility] Last Admin: 05/15/20 21:31 Dose: 20 mg Documented by: Calcium Carbonate/Cholecalciferol (Os-Osvaldo 500+D -) 1 tab PO DAILY [facility] Last Admin: 05/16/20 09:40 Dose: 1 tab Documented by: Duloxetine HCl (Cymbalta -) 40 mg PO DAILY [facility] Last Admin: 05/16/20 09:46 Dose: 40 mg Documented by: Gabapentin (Neurontin -) 100 mg PO BID [facility] Last Admin: 05/16/20 09:40 Dose: 100 mg Documented by: Piperacillin Sod/Tazobactam (Sod 2.25 gm/ Dextrose) 50 mls @ 100 mls/hr IVPB Q8H-IV [facility]; Protocol Last Admin: 05/16/20 09:46 Dose: 100 mls/hr Documented by: Insulin Aspart (Novolog Vial Sliding Scale -) 1 vial SQ ACHS [facility]; Protocol Last Admin: 05/16/20 11:16 Dose: 6 units Documented by: Metoprolol Succinate (Toprol Xl -) 25 mg PO DAILY [facility] Last Admin: 05/16/20 09:40 Dose: 25 mg Documented by: Pantoprazole Sodium (Protonix -) 40 mg PO DAILY [facility] Last Admin: 05/16/20 09:32 Dose: 40 mg Documented by: Zolpidem Tartrate (Ambien -) 5 mg PO HS PRN PRN Reason: INSOMNIA Last Admin: 05/15/20 21:31 Dose: 5 mg Documented by: - Objective Vital Signs: Vital Signs Temperature 98.6 F 05/16/20 10:47 Pulse Rate 81 05/16/20 10:47 Respiratory Rate 05/16/20 10:47 Blood Pressure 138/62 05/16/20 10:47 O2 Sat by Pulse Oximetry (%) 100 05/16/20 09:00 Constitutional: Yes: Calm, Mild Distress Cardiovascular: Yes: S1, S2 Respiratory: Yes: Regular, Poor Air Entry Gastrointestinal: Yes: Normal Bowel Sounds, Soft Musculoskeletal: Yes: WNL Extremities: Yes: Other (leg wound cellulitis better) Neurological: Yes: Alert, Oriented Psychiatric: Yes: Alert, Oriented Labs: CBC, BMP 05/16/20 07:25 05/16/20 07:25 INR, PTT INR 1.20 (0.83-1.09) H 05/12/20 14:48 Assessment/Plan 69 yo male with a history of DM, HTN, CAD, BOBY, CKD, HLD, diastolic CHF, atrial flutter, CVA, PAD, peripheral neuropathy and morbid obesity sent for admission for LLE ulcer and cellulitis. plan continue current mgmt wound care resp supprt rest as per the team
--- NOTE | 2020-05-16 14:27 | CON.CARD ---
Consult Consult Specialty:: cardiology Reason for Consultation:: PAF s/p ablation Rx; CAD; PAD - History of Present Illness Chief Complaint: Pt A&Ox3; no chest pain or dyspnea. On Ventimask History of Present Illness: Mr. Red is a 69 year old white male with PMHx of CKD stage 5, hypertension, DM (insulin pump), PVD, CAD s/p CABG 2015 (no hx [place]), PAD-->LLE stent 2017 (Dr. Carolyn Garcia), CVA ("three TIAs", with residual mild left-sided weakness), s/p Rt Carotid endarterectomy 2015, diastolic CHF, s/p atrial "flutter"-->ablation Rx 06/[address] [facility] (now on metoprolol and apixaban), anemia, elevated TNI since at least 2017, obesity (s/p gastric bypass surgery; weighed 285 lbs before the surgery), who was sent in from the wound care clinic with LE (dorsum of left foot) wound, and found to have suspected cellulitis. He says he was told he would "need surgery" (he says he has been walking regularly, and that the wound does not impede this). Seen and examined at the bedside. Pt follows with Dr. Shy Brown as an outpatient for CKD, was last seen by him May 03. He offers no acute complaints at this time. No SOB, CP, fever, chills, N/V/D, flank pain, dysuria or frequency. Making urine. No leg swelling. PMD: Dr. Joaquín Adam Guzzler Builder: Dr. James, 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 Cardio/Vascular: Yes: AFIB, CAD, CHF, HTN, Hyperlipdemia, Other (PAD) Renal/: Yes: Renal Failure, Renal Inusuff Infectious Disease: Yes: MRSA (Lt finger abscess) Endocrine: Yes: Diabetes Mellitus Dermatology: Yes: Cellulitis - Past Surgical History Past Surgical History: Yes: Bariatric Surgery, CABG, Carotid Endarterectomy - Alcohol/Substance Use Hx Alcohol Use: No History of Substance Use: reports: None - Smoking History Smoking history: Unknown if ever smoked Have you smoked in the past 12 months: No If you are a former smoker, when did you quit?: 25 years ago - Social History ADL: Independent History of Recent Travel: No Home Medications - Allergies Allergies/Adverse Reactions: Allergies Allergy/AdvReac Type Severity Reaction Status Date / Time levofloxacin [From Levaquin] Allergy Intermediate Verified 05/12/20 14:16 morphine Allergy Intermediate Vomiting Verified 05/12/20 14:16 codeine AdvReac Verified 05/12/20 14:16 egg AdvReac Vomiting Verified 05/12/20 14:16 egg yolk AdvReac Vomiting Verified 05/12/20 14:16 - Home Medications Home Medications: Ambulatory Orders Aspirin Coated [Ecotrin -] 81 mg PO DAILY 11/18/17 Zolpidem Tartrate [Ambien] 10 mg PO HS 01/06/18 Duloxetine HCl 40 mg PO DAILY 07/20/19 Pregabalin [Lyrica -] 50 mg PO BID MDD 2 07/20/19 Apixaban [Eliquis -] 5 mg PO BID 12/24/19 Gabapentin [Neurontin -] 100 mg PO BID 04/12/20 Insulin Aspart [Novolog] 0 unit SQ ASDIR 04/12/20 Amlodipine Besylate [Norvasc -] 5 mg PO DAILY #30 tablet 04/18/20 Atorvastatin Ca [Lipitor] 20 mg PO HS #30 tablet 04/18/20 Calcium 500Mg/Vit-D 200 Units [Os-Osvaldo 500+D -] 1 tab PO DAILY #30 tab 04/18/20 Collagenase Clostridium Hist. [Santyl -] 1 applic TP DAILY #1 tube 04/18/20 Metoprolol Succinate [Toprol XL -] 25 mg PO DAILY #30 tab.sr.24h 04/18/20 Pantoprazole Sodium [Protonix -] 40 mg PO DAILY #30 tablet.ec 04/18/20 Family Medical History Family History: Denies Review of Systems - Review of Systems Constitutional: reports: Weakness Eyes: reports: No Symptoms HENT: reports: No Symptoms Neck: reports: No Symptoms Cardiovascular: reports: No Symptoms Respiratory: reports: No Symptoms Gastrointestinal: reports: No Symptoms Genitourinary: reports: No Symptoms Breasts: reports: No Symptoms Reported Musculoskeletal: reports: Muscle Weakness Integumentary: reports: Wound (LE) Neurological: reports: Parasthesia ("neuropathy" of LEs) Endocrine: reports: No Symptoms Hematology/Lymphatic: reports: No Symptoms Psychiatric: reports: No Symptoms - Risk Factors Known Risk Factors: Yes: Age, Diabetes Mellitus, Gender, Hypercholesterolemia, Hypertension, Physical Inactivity, Other (CAD/CABG; PAD) Vital Signs: Vital Signs Temperature 99.4 F 05/16/20 14:12 Pulse Rate 81 05/16/20 14:12 Respiratory Rate 05/16/20 14:12 Blood Pressure 136/78 05/16/20 14:12 O2 Sat by Pulse Oximetry (%) 100 05/16/20 09:00 Constitutional: Yes: Calm Eyes: Yes: WNL HENT: Yes: WNL Neck: Yes: WNL Respiratory: Yes: WNL Gastrointestinal: Yes: Soft Renal/: No: Anuria Cardiovascular: Yes: Regular Rate and Rhythm JVD: No Carotid Bruit: No PMI: Non-Displaced Heart Sounds: Yes: S1, S2, S4 Musculoskeletal: Yes: Muscle Weakness Extremities: Yes: Cool Edema: Yes (LLE) Edema: LLE: 1+ Peripheral Pulses WNL: No Peripheral Pulses: 1+ Left Doralis Pedis, 1+ Right Dorsalis Pedis Integumentary: Yes: Venous Stasis Changes Neurological: Yes: Alert, Oriented Psychiatric: Yes: Alert, Oriented - Other Data Labs, Other Data: CBC, BMP 05/16/20 07:25 05/16/20 07:25 INR, PTT INR 1.20 (0.83-1.09) H 05/12/20 14:48 Abnormal Lab Results 05/18/20 05/18/20 12:44 22:00 BUN 66.7 H Creatinine 6.4 H Random Glucose 363 H > 500 H* Calcium 7.1 L Assessment/Plan COVID not detected; 2nd test results pending. F/u renal w/u with acting manager. F/u anemia w/u. On statin since early April; LDL 65 mg/dL at that time. 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 Continue metoprolol and apixaban (hx atrial flutter-->ablation therapy 2019). For LE vascular workup; may require procedure for non-healing wound. Addendum: Records from [facility] note (03/13/2020) include: 03/08/16 stress MIBI +-->coronary angiogram (mutivessel disease: 70% mid CX, 95% small OM1; 95% large OM2; 70% proximal LAD with 99% adjacent tiny D1; 95% distal LAD; L-->R collaterals; 100% proximal RCA. On 03/27/16: CABG (DOZIER to mid and distal LAD; SVG to D1; SVG to OM2. 07/20: LINQ implanted for unexplained presyncope 11/10/17: LLE arterial PCI for nonhealing Lt foot ulcer (Dr. Lynnette Garcia: [facility]) 07/21 carotid duplex: moderate plaque with 50-79% right ICA stenosis; mild plaque with 16-49% left ICA stenosis 11/21: TIA 12/22: right carotid endarterectomy 04/21: LINQ showed PAF/flutter-->apixaban 5 mg bid 07/22: [facility] admission with nausea/abd discomfort; mild TNi elevation (0.3). Discussed with [facility] team; pt was to be transferred for cath, but refused, wanting instead to go to a [employer] game. 07/23/19: Lexiscan MIBI (at [facility]): moderate sized inferolat ischemia (increased from small on 12/22); normal LVEF. Coronary cath was planned, but cancelled due to renal dysfunction (?dehydration-related). Cr 3.2-->2.97 (09/2019). Meds 03/2020: amlodipine 10 mg/d; metoprolol ER 25 mg/d; atorvastatin 40 mg/d; apixaban 5 mg bid; ASA 81 mg/dm, Vascepa fish oil; Novolog 10 qd; ferrous sulfate 325 mg bid, gabapentin 100 mg ?tid; furosemide 40 mg /d No ischemic symptoms on 03/22 visit.
--- NOTE | 2020-05-16 17:43 | PN ---
Progress Note, Physician Chief Complaint: Leg ulcer History of Present Illness: Seen and examined at the bedside awake and alert has some shortness of breath and slight cough no cp, fever, chills - Current Medication List Current Medications: Active Medications Albuterol Sulfate (Ventolin 0.083% Nebulizer Soln -) 1 amp NEB Q4H PRN PRN Reason: SHORT OF BREATH/WHEEZING Albuterol/Ipratropium (Duoneb -) 1 amp NEB RQID [facility] Last Admin: 05/16/20 16:17 Dose: 1 amp Documented by: Amlodipine Besylate (Norvasc -) 5 mg PO DAILY [facility] Last Admin: 05/16/20 09:40 Dose: 5 mg Documented by: Apixaban (Eliquis -) 2.5 mg PO BID [facility] Last Admin: 05/16/20 09:40 Dose: 2.5 mg Documented by: Aspirin (Ecotrin -) 81 mg PO DAILY [facility] Last Admin: 05/16/20 09:32 Dose: 81 mg Documented by: Atorvastatin Calcium (Lipitor -) 20 mg PO HS [facility] Last Admin: 05/15/20 21:31 Dose: 20 mg Documented by: Calcium Carbonate/Cholecalciferol (Os-Osvaldo 500+D -) 1 tab PO DAILY [facility] Last Admin: 05/16/20 09:40 Dose: 1 tab Documented by: Duloxetine HCl (Cymbalta -) 40 mg PO DAILY [facility] Last Admin: 05/16/20 09:46 Dose: 40 mg Documented by: Gabapentin (Neurontin -) 100 mg PO BID [facility] Last Admin: 05/16/20 09:40 Dose: 100 mg Documented by: Piperacillin Sod/Tazobactam (Sod 2.25 gm/ Dextrose) 50 mls @ 100 mls/hr IVPB Q8H-IV [facility]; Protocol Last Admin: 05/16/20 09:46 Dose: 100 mls/hr Documented by: Insulin Aspart (Novolog Vial Sliding Scale -) 1 vial SQ ACHS [facility]; Protocol Last Admin: 05/16/20 16:48 Dose: 12 units Documented by: Metoprolol Succinate (Toprol Xl -) 25 mg PO DAILY [facility] Last Admin: 05/16/20 09:40 Dose: 25 mg Documented by: Pantoprazole Sodium (Protonix -) 40 mg PO DAILY [facility] Last Admin: 05/16/20 09:32 Dose: 40 mg Documented by: Zolpidem Tartrate (Ambien -) 5 mg PO HS PRN PRN Reason: INSOMNIA Last Admin: 05/15/20 21:31 Dose: 5 mg Documented by: - Objective Vital Signs: Vital Signs Temperature 99.4 F 05/16/20 14:12 Pulse Rate 81 05/16/20 14:12 Respiratory Rate 05/16/20 14:12 Blood Pressure 136/78 05/16/20 14:12 O2 Sat by Pulse Oximetry (%) 100 05/16/20 09:00 Constitutional: Yes: No Distress, Calm HENT: Yes: Atraumatic Neck: Yes: Supple Cardiovascular: Yes: Regular Rate and Rhythm Respiratory: Yes: Diminished, On Venti-Mask Gastrointestinal: Yes: Soft Edema: No Labs: CBC, BMP 05/16/20 07:25 05/16/20 07:25 INR, PTT INR 1.20 (0.83-1.09) H 05/12/20 14:48 Assessment/Plan 69 year old male with PMHx of CKD stage 5 (Last outpatient Cr 5), hypertension, DM, PVD, CAD s/p CABG who was sent in from the wound care clinic with LE wound and found to have suspected cellulitis. 1. CKD stage 5 not yet on dialysis 2. LE wound 3. Cellulitis of the lower extremity 4. Hypertension 5. DM 6. Chronic anemia Cr slowly trending up Despite load EGFR there is no acute need for renal placement therapy. Avoid nephrotoxins such as NSAIDs or IV contrast. Agree with Lasix as ordered, can given 100mg IV tomorrow if response is not good. Patient will need access placement for future dialysis as an outpatient. Trend H&H. Status post revision earlier this admission. Will re-dose of Epogen tomorrow. Will defer an iron given acute infection. Trend renal function and electrolytes daily. Jonah Painting DO
[2020-05-16] MEDS: ATORVASTATIN CA 20 MG TABLET (FP) PO SCH (21:09)
--- NOTE | 2020-05-16 21:27 | PN ---
Progress Note, Physician History of Present Illness: ?Some SOB - Current Medication List Current Medications: Active Medications Albuterol Sulfate (Ventolin 0.083% Nebulizer Soln -) 1 amp NEB Q4H PRN PRN Reason: SHORT OF BREATH/WHEEZING Albuterol/Ipratropium (Duoneb -) 1 amp NEB RQID [facility] Last Admin: 05/16/20 20:00 Dose: 1 amp Documented by: Amlodipine Besylate (Norvasc -) 5 mg PO DAILY [facility] Last Admin: 05/16/20 09:40 Dose: 5 mg Documented by: Apixaban (Eliquis -) 2.5 mg PO BID [facility] Last Admin: 05/16/20 21:09 Dose: 2.5 mg Documented by: Aspirin (Ecotrin -) 81 mg PO DAILY [facility] Last Admin: 05/16/20 09:32 Dose: 81 mg Documented by: Atorvastatin Calcium (Lipitor -) 20 mg PO HS [facility] Last Admin: 05/16/20 21:09 Dose: 20 mg Documented by: Calcium Carbonate/Cholecalciferol (Os-Osvaldo 500+D -) 1 tab PO DAILY [facility] Last Admin: 05/16/20 09:40 Dose: 1 tab Documented by: Duloxetine HCl (Cymbalta -) 40 mg PO DAILY [facility] Last Admin: 05/16/20 09:46 Dose: 40 mg Documented by: Furosemide (Lasix Injection -) 80 mg IVPB BID@0600,1400 [facility] Gabapentin (Neurontin -) 100 mg PO BID [facility] Last Admin: 05/16/20 21:09 Dose: 100 mg Documented by: Piperacillin Sod/Tazobactam (Sod 2.25 gm/ Dextrose) 50 mls @ 100 mls/hr IVPB Q8H-IV [facility]; Protocol Last Admin: 05/16/20 18:24 Dose: 100 mls/hr Documented by: Insulin Aspart (Novolog Vial Sliding Scale -) 1 vial SQ ACHS [facility]; Protocol Last Admin: 05/16/20 21:10 Dose: 10 units Documented by: Metoprolol Succinate (Toprol Xl -) 25 mg PO DAILY [facility] Last Admin: 05/16/20 09:40 Dose: 25 mg Documented by: Pantoprazole Sodium (Protonix -) 40 mg PO DAILY [facility] Last Admin: 05/16/20 09:32 Dose: 40 mg Documented by: Zolpidem Tartrate (Ambien -) 5 mg PO HS PRN PRN Reason: INSOMNIA Last Admin: 05/15/20 21:31 Dose: 5 mg Documented by: - Objective Vital Signs: Vital Signs Temperature 98.4 F 05/16/20 18:57 Pulse Rate 82 05/16/20 18:57 Respiratory Rate 20 05/16/20 20:49 Blood Pressure 116/63 05/16/20 18:57 O2 Sat by Pulse Oximetry (%) 100 05/16/20 20:49 Neck: Yes: WNL, Supple Cardiovascular: Yes: WNL, Regular Rate and Rhythm Respiratory: Yes: Diminished Gastrointestinal: Yes: WNL, Normal Bowel Sounds, Soft Extremities: Yes: Other ((+) lowere extremity) Labs: CBC, BMP 05/16/20 07:25 05/16/20 07:25 INR, PTT INR 1.20 (0.83-1.09) H 05/12/20 14:48 Problem List - Problems (1) Pneumonia Assessment/Plan: Cont IV antibxs Repeat CXR in am Will repeat COVID testing Code(s): J18.9 - PNEUMONIA, UNSPECIFIED ORGANISM (2) CHF (congestive heart failure) Assessment/Plan: Pt given IV lasix Cardio consult Code(s): I50.9 - HEART FAILURE, UNSPECIFIED (3) Diabetic ulcer of left foot Assessment/Plan: Cont IV Zosyn/Vanco Wound culture (+) for enterobacter/Grp D strept Will need to find out if pt can have MRI w/ penile implant Code(s): E11.621 - TYPE 2 DIABETES MELLITUS WITH FOOT ULCER; L97.529 - NON- PRESSURE CHRONIC ULCER OTH PRT LEFT FOOT W UNSP SEVERITY Qualifiers: Diabetic foot ulcer location: unspecified part of foot Diabetes mellitus type: type 2 Non-pressure ulcer stage: unspecified non-pressure ulcer stage Qualified Code(s): E11.621 - Type 2 diabetes mellitus with foot ulcer; L97.529 - Non-pressure chronic ulcer of other part of left foot with unspecified severity (4) Acute on chronic renal failure Assessment/Plan: As per renal Monitor BUN/creatinine Code(s): N17.9 - ACUTE KIDNEY FAILURE, UNSPECIFIED; N18.9 - CHRONIC KIDNEY DISEASE, UNSPECIFIED (5) Atrial fibrillation Assessment/Plan: renal dosing of eliquis Rate controlled Code(s): I48.91 - UNSPECIFIED ATRIAL FIBRILLATION (6) Diabetic neuropathy Code(s): E11.40 - TYPE 2 DIABETES MELLITUS WITH DIABETIC NEUROPATHY, UNSP (7) Hx of CABG Code(s): Z95.1 - PRESENCE OF AORTOCORONARY BYPASS GRAFT (8) PAD (peripheral artery disease) Code(s): I73.9 - PERIPHERAL VASCULAR DISEASE, UNSPECIFIED (9) CAD (coronary artery disease) Code(s): I25.10 - ATHSCL HEART DISEASE OF [place] CORONARY ARTERY W/O ANG PCTRS Qualifiers: Coronary Disease-Associated Artery/Lesion type: [place] artery [place] vs. transplanted heart: [place] heart Associated angina: without angina Qualified Code(s): I25.10 - Atherosclerotic heart disease of [place] coronary artery without angina pectoris (10) Diabetes mellitus Assessment/Plan: Cont sliding scale w/ coverage Code(s): E11.9 - TYPE 2 DIABETES MELLITUS WITHOUT COMPLICATIONS Qualifiers: Diabetes mellitus type: type 2 Diabetes mellitus long-term insulin use: without long-term use Diabetes mellitus complication status: with circulatory complication Diabetes mellitus complication detail: with peripheral angiopathy without gangrene Qualified Code(s): E11.51 - Type 2 diabetes mellitus with diabetic peripheral angiopathy without gangrene (11) Hyperlipidemia Code(s): E78.5 - HYPERLIPIDEMIA, UNSPECIFIED Qualifiers: Hyperlipidemia type: pure hypercholesterolemia Qualified Code(s): E78.00 - Pure hypercholesterolemia, unspecified; E78.0 - Pure hypercholesterolemia (12) Hypertension Code(s): I10 - ESSENTIAL (PRIMARY) HYPERTENSION Qualifiers: Hypertension type: essential hypertension Qualified Code(s): I10 - Essential (primary) hypertension
[2020-05-16] MEDS: ZOLPIDEM TARTRATE 5 MG TABLET PO PRN (22:23)
[2020-05-17] MEDS: PIPERACILLIN/TAZOB 2.25 GM 2.25 GM in DEXTROSE 5%-WATER - 50 ML IVPB SCH ×3 (02:00→17:09)
[2020-05-17] MEDS ORDERED: PIPERACILLIN/TAZOBACTAM 2.25 GM VIAL IVPB ONE ×3 (02:34→16:47)
[2020-05-17] MEDS ORDERED: DEXTROSE 5%-WATER - 50 ML IVPB ONE ×3 (02:34→16:47)
[2020-05-17] MEDS: FUROSEMIDE 40 MG/4 ML INJECTABLE VIAL IVPB SCH ×2 (06:00→13:13)
[2020-05-17] MEDS: INSULIN SLIDING SCALE (NOVOLOG) 1 VIAL SQ SCH ×4 (06:18→21:11)
[2020-05-17] MEDS ORDERED: INSULIN (NOVOLOG) ASPART 100 UNITS/ML 10ML VIAL ONE (06:41)
[2020-05-17 08:25] LABS: BASO % 0.6 % (0-2.0); EOS % 3.9 % (0-4.5); HEMATOCRIT 23.2 % (35.4-49); HEMOGLOBIN 7.4 GM/dL (11.7-16.9); LYMPH % 9.5 % (8-40); MCH 27.8 pg (25.7-33.7); MCHC 31.9 g/dl (32.0-35.9); MEAN CELL VOLUME 87.1 fl (80-96); MEAN PLT VOLUME 9.9 fl (7.5-11.1); MONO % 10.3 % (3.8-10.2); NEUT % 75.7 % (42.8-82.8); PLATELET COUNT 166 K/MM3 (134-434); RBC 2.66 M/mm3 (4.00-5.60); RDW 15.5 % (11.9-15.9); WHITE BLOOD COUNT 7.8 K/mm3 (4.0-10.0)
[2020-05-17] MEDS: ALBUTEROL SO4 2.5/IPRATROPIUM 0.5 INH SOL 3 ML VIAL.NEB. NEB SCH ×4 (08:30→20:55)
[2020-05-17 08:52] LABS: ALBUMIN 1.8 g/dl (3.4-5.0); BILIRUBIN,TOTAL 0.4 mg/dL (0.2-1); BLOOD UREA NITROGEN 63.5 mg/dL (7-18); CALCIUM 7.4 mg/dL (8.5-10.1); CREATININE 6.1 mg/dL (0.55-1.3); TOT PROT 5.6 g/dl (6.4-8.2)
[2020-05-17] MEDS: DULoxetine HCL 20 MG CAPSULE.DR PO SCH (09:23)
[2020-05-17] MEDS: PANTOPRAZOLE 40 MG TABLET PO SCH (09:23)
[2020-05-17] MEDS: CALCIUM 500MG/VIT-D 200 UNITS COMBO TABLET (FP) PO SCH (09:24)
[2020-05-17] MEDS: ASPIRIN COATED 81 MG TABLET.EC PO SCH (09:24)
[2020-05-17] MEDS: metoPROLOL SUCCINATE 25 MG TAB.SR.24H (FP) PO SCH (09:24)
[2020-05-17] MEDS: amLODIPine BESYLATE 5 MG TABLET (FP) PO SCH (09:24)
[2020-05-17] MEDS: APIXABAN 2.5 MG TABLET PO SCH ×2 (09:24→21:10)
[2020-05-17] MEDS: GABAPENTIN 100 MG CAPSULE PO SCH ×2 (09:24→21:10)
[2020-05-17] MEDS ORDERED: ACETAMINOPHEN 1000 MG/100 ML VIAL (NON FORMULARY) IVPB ONE (11:15)
--- NOTE | 2020-05-17 11:44 | PN ---
Progress Note, Physician History of Present Illness: Mr. Red is a 69 year old white male with PMHx of CKD stage 5, hypertension, DM (insulin pump), PVD, CAD s/p CABG 2016 (no hx [place]), PAD-->LLE stent 2017 (Dr. Carolyn Garcia), CVA ("three TIAs", with residual mild left-sided weakness), diastolic CHF, s/p atrial "flutter"-->ablation Rx 2018 at [facility] (now on metoprolol and apixaban), anemia, elevated TNI since at least 2017, obesity (s/p gastric bypass surgery; weighed 285 lbs before the surgery), who was sent in from the wound care clinic with LE (dorsum of left foot) wound and found to have suspected cellulitis. He says he was told he would "need surgery". (He says he has been walking regularly, and that the wound does not impede this. Seen and examined at the bedside. Pt follows with Dr. Shy Brown as an outpatient for CKD, was last seen May 03. He offers no acute complaints at this time. No SOB, CP, fever, chills, N/V/D, flank pain, dysuria or frequency. Making urine. No leg swelling. PMD: Dr. 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 James, [facility] Surgical Hx: spinal disk replacement kidney stone removal/stent CABG 2015 bariatric surgery 04/19 CEA (R) 12/22 EPS: ablation of atrial flutter 06/21 berto LE laser vein surgery - Current Medication List Current Medications: Active Medications Albuterol Sulfate (Ventolin 0.083% Nebulizer Soln -) 1 amp NEB Q4H PRN PRN Reason: SHORT OF BREATH/WHEEZING Albuterol/Ipratropium (Duoneb -) 1 amp NEB RQID [facility] Last Admin: 05/17/20 08:30 Dose: 1 amp Documented by: Amlodipine Besylate (Norvasc -) 5 mg PO DAILY [facility] Last Admin: 05/17/20 09:24 Dose: 5 mg Documented by: Apixaban (Eliquis -) 2.5 mg PO BID [facility] Last Admin: 05/17/20 09:24 Dose: 2.5 mg Documented by: Aspirin (Ecotrin -) 81 mg PO DAILY [facility] Last Admin: 05/17/20 09:24 Dose: 81 mg Documented by: Atorvastatin Calcium (Lipitor -) 20 mg PO HS [facility] Last Admin: 05/16/20 21:09 Dose: 20 mg Documented by: Calcium Carbonate/Cholecalciferol (Os-Osvaldo 500+D -) 1 tab PO DAILY [facility] Last Admin: 05/17/20 09:24 Dose: 1 tab Documented by: Duloxetine HCl (Cymbalta -) 40 mg PO DAILY [facility] Last Admin: 05/17/20 09:23 Dose: 40 mg Documented by: Furosemide (Lasix Injection -) 80 mg IVPB BID@0600,1400 [facility] Last Admin: 05/17/20 06:00 Dose: 80 mg Documented by: Gabapentin (Neurontin -) 100 mg PO BID [facility] Last Admin: 05/17/20 09:24 Dose: 100 mg Documented by: Piperacillin Sod/Tazobactam (Sod 2.25 gm/ Dextrose) 50 mls @ 100 mls/hr IVPB Q8H-IV [facility]; Protocol Last Admin: 05/17/20 09:23 Dose: 100 mls/hr Documented by: Insulin Aspart (Novolog Vial Sliding Scale -) 1 vial SQ ACHS [facility]; Protocol Last Admin: 05/17/20 06:18 Dose: 8 units Documented by: Metoprolol Succinate (Toprol Xl -) 25 mg PO DAILY [facility] Last Admin: 05/17/20 09:24 Dose: 25 mg Documented by: Pantoprazole Sodium (Protonix -) 40 mg PO DAILY [facility] Last Admin: 05/17/20 09:23 Dose: 40 mg Documented by: Zolpidem Tartrate (Ambien -) 5 mg PO HS PRN PRN Reason: INSOMNIA Last Admin: 05/16/20 22:23 Dose: 5 mg Documented by: - Objective Vital Signs: Vital Signs Temperature 99.2 F 05/17/20 09:20 Pulse Rate 87 05/17/20 09:20 Respiratory Rate 21 H 05/17/20 09:20 Blood Pressure 147/64 05/17/20 09:20 O2 Sat by Pulse Oximetry (%) 99 05/17/20 09:20 Eyes: Yes: WNL, Conjunctiva Clear, EOM Intact HENT: Yes: WNL, Atraumatic, Normocephalic Neck: Yes: WNL, Supple, Trachea Midline Cardiovascular: Yes: WNL, Regular Rate and Rhythm Respiratory: Yes: WNL, Regular, CTA Bilaterally Gastrointestinal: Yes: WNL, Normal Bowel Sounds Genitourinary: Yes: WNL Musculoskeletal: Yes: WNL Extremities: Yes: WNL Edema: No Integumentary: Yes: WNL Neurological: Yes: WNL, Alert, Oriented ...Motor Strength: WNL Psychiatric: Yes: WNL Labs: CBC, BMP 05/17/20 07:51 05/17/20 06:00 INR, PTT INR 1.20 (0.83-1.09) H 05/12/20 14:48 Assessment/Plan COVID not detected. 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 On statin since early April; LDL 65 mg/dL at that time. 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 Pt says he is on metoprolol and apixaban (hx atrial flutter-->ablation therapy 2018). For LE vascular workup; may require procedure for non-healing wound. Addendum: Records from [facility] note (03/13/2020) include: 03/08/16 stress MIBI +-->coronary angiogram (mutivessel disease: 70% mid CX, 95% small OM1; 95% large OM2; 70% proximal LAD with 99% adjacent tiny D1; 95% distal LAD; L-->R collaterals; 100% proximal RCA. On 03/27/16: CABG (DOZIER to mid and distal LAD; SVG to D1; SVG to OM2. 07/20: LINQ implanted for unexplained presyncope 11/10/17: LLE arterial PCI for nonhealing Lt foot ulcer (Dr. Lynnette Garcia: [facility]) 07/21 carotid duplex: moderate plaque with 50-79% right ICA stenosis; mild plaque with 16-49% left ICA stenosis 11/21: TIA 12/22: right carotid endarterectomy 04/21: LING showed PAF/flutter-->apixaban 5 mg bid 07/22: [facility] admission with nausea/abd discomfort; mild TNi elevation (0.3). Discussed with [facility] team; pt was to be transferred for cath, but he refused, wanting instead to go to a [place]. 07/23/19: Judeiscan MIBI (at [facility]): moderate sized inferolat ischemia (increased from small on 12/22); normal LVEF. Coronary cath was planned, but cancelled due to renal dysfunction (?dehydration-related). Cr 3.2-->2.97 (09/2019). Meds 03/2020: amlodipine 10 mg/d; metoprolol ER 25 mg/d; atorvastatin 40 mg/d; apixaban 5 mg bid; ASA 81 mg/dm, Vascepa fish oil; Novolog 10 qd; ferrous sulfate 325 mg bid, gabapentin 100 mg ?tid; furosemide 40 mg /d No ishemic symptoms on 03/22 visit.
--- NOTE | 2020-05-17 11:51 | PN ---
Progress Note, Physician History of Present Illness: pulmonary alert,c/o increased sob,placed on 100%nrb,o2 sat 99% - Current Medication List Current Medications: Active Medications Albuterol Sulfate (Ventolin 0.083% Nebulizer Soln -) 1 amp NEB Q4H PRN PRN Reason: SHORT OF BREATH/WHEEZING Albuterol/Ipratropium (Duoneb -) 1 amp NEB RQID [facility] Last Admin: 05/17/20 08:30 Dose: 1 amp Documented by: Amlodipine Besylate (Norvasc -) 5 mg PO DAILY [facility] Last Admin: 05/17/20 09:24 Dose: 5 mg Documented by: Apixaban (Eliquis -) 2.5 mg PO BID [facility] Last Admin: 05/17/20 09:24 Dose: 2.5 mg Documented by: Aspirin (Ecotrin -) 81 mg PO DAILY [facility] Last Admin: 05/17/20 09:24 Dose: 81 mg Documented by: Atorvastatin Calcium (Lipitor -) 20 mg PO HS [facility] Last Admin: 05/16/20 21:09 Dose: 20 mg Documented by: Calcium Carbonate/Cholecalciferol (Os-Osvaldo 500+D -) 1 tab PO DAILY [facility] Last Admin: 05/17/20 09:24 Dose: 1 tab Documented by: Duloxetine HCl (Cymbalta -) 40 mg PO DAILY [facility] Last Admin: 05/17/20 09:23 Dose: 40 mg Documented by: Furosemide (Lasix Injection -) 80 mg IVPB BID@0600,1400 [facility] Last Admin: 05/17/20 06:00 Dose: 80 mg Documented by: Gabapentin (Neurontin -) 100 mg PO BID [facility] Last Admin: 05/17/20 09:24 Dose: 100 mg Documented by: Piperacillin Sod/Tazobactam (Sod 2.25 gm/ Dextrose) 50 mls @ 100 mls/hr IVPB Q8H-IV [facility]; Protocol Last Admin: 05/17/20 09:23 Dose: 100 mls/hr Documented by: Insulin Aspart (Novolog Vial Sliding Scale -) 1 vial SQ ACHS [facility]; Protocol Last Admin: 05/17/20 06:18 Dose: 8 units Documented by: Metoprolol Succinate (Toprol Xl -) 25 mg PO DAILY [facility] Last Admin: 05/17/20 09:24 Dose: 25 mg Documented by: Pantoprazole Sodium (Protonix -) 40 mg PO DAILY [facility] Last Admin: 05/17/20 09:23 Dose: 40 mg Documented by: Zolpidem Tartrate (Ambien -) 5 mg PO HS PRN PRN Reason: INSOMNIA Last Admin: 05/16/20 22:23 Dose: 5 mg Documented by: - Objective Vital Signs: Vital Signs Temperature 99.2 F 05/17/20 09:20 Pulse Rate 87 05/17/20 09:20 Respiratory Rate 21 H 05/17/20 09:20 Blood Pressure 147/64 05/17/20 09:20 O2 Sat by Pulse Oximetry (%) 99 05/17/20 09:20 Constitutional: Yes: Well Nourished, Mild Distress Eyes: Yes: WNL HENT: Yes: WNL Neck: Yes: WNL Cardiovascular: Yes: Pulse Irregular, S1, S2 Respiratory: Yes: Rhonchi (bilateral rales and rhonchi) Gastrointestinal: Yes: Normal Bowel Sounds, Soft Extremities: Yes: WNL Edema: No Labs: CBC, BMP 05/17/20 07:51 05/17/20 06:00 INR, PTT INR 1.20 (0.83-1.09) H 05/12/20 14:48 - ....Imaging Chest X-ray: Report Reviewed, Image Reviewed Problem List - Problems (1) Atrial fibrillation Code(s): I48.91 - UNSPECIFIED ATRIAL FIBRILLATION (2) Diabetic ulcer of left foot Code(s): E11.621 - TYPE 2 DIABETES MELLITUS WITH FOOT ULCER; L97.529 - NON- PRESSURE CHRONIC ULCER OTH PRT LEFT FOOT W UNSP SEVERITY Qualifiers: Diabetic foot ulcer location: unspecified part of foot Diabetes mellitus type: type 2 Non-pressure ulcer stage: unspecified non-pressure ulcer stage Qualified Code(s): E11.621 - Type 2 diabetes mellitus with foot ulcer; L97.529 - Non-pressure chronic ulcer of other part of left foot with unspecified severity (3) Acute kidney injury superimposed on CKD Code(s): N17.9 - ACUTE KIDNEY FAILURE, UNSPECIFIED; N18.9 - CHRONIC KIDNEY D ISEASE, UNSPECIFIED (4) CHF (congestive heart failure) Code(s): I50.9 - HEART FAILURE, UNSPECIFIED (5) Hx of CABG Code(s): Z95.1 - PRESENCE OF AORTOCORONARY BYPASS GRAFT (6) Hypertension Code(s): I10 - ESSENTIAL (PRIMARY) HYPERTENSION Qualifiers: Hypertension type: essential hypertension Qualified Code(s): I10 - E ssential (primary) hypertension (7) PVD (peripheral vascular disease) Code(s): I73.9 - PERIPHERAL VASCULAR DISEASE, UNSPECIFIED (8) Shortness of breath Code(s): R06.02 - SHORTNESS OF BREATH (9) Acute congestive heart failure Code(s): I50.9 - HEART FAILURE, UNSPECIFIED Assessment/Plan Assessment/Plan Acute on Chronic Diastolic Heart Failure Acute on Chronic Renal Failure worsening Cellulitis r/o Pneumonia CAD s/p CABG HTN DM PAD - IV lasix - ? hd as per renal - monitor urine output, creatinine - O2 to keep SpO2 >90% - inhaled bronchodilators - antibiotics - monitor CXR DR ELIAS
--- NOTE | 2020-05-17 14:01 | PN ---
Progress Note (short form) - Note Progress Note: VASCULAR SURGERY Left foot ulcer with cellulitis. Awaiting Left foot MRI (ordered 05/15) to r/o osteo but still not done.
--- NOTE | 2020-05-17 17:17 | PN ---
Progress Note, Physician Chief Complaint: Leg ulcer History of Present Illness: Seen and examined at the bedside daughter at the bedside. Patient offers no acute complaints but does report shortness of breath. He den ies any cough or orthopnea. Chest x-ray done this morning shows worsening of congestion. Patient is making urine. No nausea, vomiting, confusion. Patient is more sleepy today as per his daughter. - Current Medication List Current Medications: Active Medications Albuterol Sulfate (Ventolin 0.083% Nebulizer Soln -) 1 amp NEB Q4H PRN PRN Reason: SHORT OF BREATH/WHEEZING Albuterol/Ipratropium (Duoneb -) 1 amp NEB RQID [facility] Last Admin: 05/17/20 15:53 Dose: 1 amp Documented by: Amlodipine Besylate (Norvasc -) 5 mg PO DAILY [facility] Last Admin: 05/17/20 09:24 Dose: 5 mg Documented by: Apixaban (Eliquis -) 2.5 mg PO BID [facility] Last Admin: 05/17/20 09:24 Dose: 2.5 mg Documented by: Aspirin (Ecotrin -) 81 mg PO DAILY [facility] Last Admin: 05/17/20 09:24 Dose: 81 mg Documented by: Atorvastatin Calcium (Lipitor -) 20 mg PO HS [facility] Last Admin: 05/16/20 21:09 Dose: 20 mg Documented by: Calcium Carbonate/Cholecalciferol (Os-Osvaldo 500+D -) 1 tab PO DAILY [facility] Last Admin: 05/17/20 09:24 Dose: 1 tab Documented by: Duloxetine HCl (Cymbalta -) 40 mg PO DAILY [facility] Last Admin: 05/17/20 09:23 Dose: 40 mg Documented by: Furosemide (Lasix Injection -) 80 mg IVPB BID@0600,1400 [facility] Last Admin: 05/17/20 13:13 Dose: 80 mg Documented by: Gabapentin (Neurontin -) 100 mg PO BID [facility] Last Admin: 05/17/20 09:24 Dose: 100 mg Documented by: Piperacillin Sod/Tazobactam (Sod 2.25 gm/ Dextrose) 50 mls @ 100 mls/hr IVPB Q8H-IV [facility]; Protocol Last Admin: 05/17/20 17:09 Dose: 100 mls/hr Documented by: Insulin Aspart (Novolog Vial Sliding Scale -) 1 vial SQ ACHS [facility]; Protocol Last Admin: 05/17/20 17:09 Dose: 10 units Documented by: Metoprolol Succinate (Toprol Xl -) 25 mg PO DAILY [facility] Last Admin: 05/17/20 09:24 Dose: 25 mg Documented by: Pantoprazole Sodium (Protonix -) 40 mg PO DAILY [facility] Last Admin: 05/17/20 09:23 Dose: 40 mg Documented by: Zolpidem Tartrate (Ambien -) 5 mg PO HS PRN PRN Reason: INSOMNIA Last Admin: 05/16/20 22:23 Dose: 5 mg Documented by: - Objective Vital Signs: Vital Signs Temperature 98.7 F 05/17/20 14:00 Pulse Rate 78 05/17/20 14:00 Respiratory Rate 20 05/17/20 14:00 Blood Pressure 129/69 05/17/20 14:00 O2 Sat by Pulse Oximetry (%) 100 05/17/20 14:00 Constitutional: Yes: No Distress HENT: Yes: Atraumatic Neck: Yes: Supple Cardiovascular: Yes: Regular Rate and Rhythm Respiratory: Yes: Diminished Gastrointestinal: Yes: Soft Extremities: No: Cyanosis Edema: No Labs: CBC, BMP 05/17/20 07:51 05/17/20 06:00 INR, PTT INR 1.20 (0.83-1.09) H 05/12/20 14:48 Assessment/Plan 69 year old male with PMHx of CKD stage 5 (Last outpatient Cr 5), hypertension, DM, PVD, CAD s/p CABG who was sent in from the wound care clinic with LE wound and found to have suspected cellulitis. 1. CKD stage 5 not yet on dialysis 2. LE wound 3. Cellulitis of the lower extremity 4. Hypertension 5. DM 6. Chronic anemia BUN and creatinine both trending up however this is expected in the setting of intravenous diuretics. There is no overt acidosis, hyperkalemia or uremia to warrant hemodialysis at this time. Continue high-dose IV diuretics twice daily. Trend urine output and daily weights. Trend renal function and what twice daily. We will titrate diuretics with goal of euvolemic. Continue antibiotics for lower extremity cellulitis. Vascular workup is ongoing. Jonah Painting DO
--- NOTE | 2020-05-17 18:43 | PN ---
Progress Note, Physician History of Present Illness: Pt with c/o SOB earlier, now feeling better with NRB. Is fully alert and states he feels well. Denies productive cough and afebrile. Daughter at bedside states he is not making urine. - Current Medication List Current Medications: Active Medications Albuterol Sulfate (Ventolin 0.083% Nebulizer Soln -) 1 amp NEB Q4H PRN PRN Reason: SHORT OF BREATH/WHEEZING Albuterol/Ipratropium (Duoneb -) 1 amp NEB RQID [facility] Last Admin: 05/17/20 15:53 Dose: 1 amp Documented by: Amlodipine Besylate (Norvasc -) 5 mg PO DAILY [facility] Last Admin: 05/17/20 09:24 Dose: 5 mg Documented by: Apixaban (Eliquis -) 2.5 mg PO BID [facility] Last Admin: 05/17/20 09:24 Dose: 2.5 mg Documented by: Aspirin (Ecotrin -) 81 mg PO DAILY [facility] Last Admin: 05/17/20 09:24 Dose: 81 mg Documented by: Atorvastatin Calcium (Lipitor -) 20 mg PO HS [facility] Last Admin: 05/16/20 21:09 Dose: 20 mg Documented by: Calcium Carbonate/Cholecalciferol (Os-Osvaldo 500+D -) 1 tab PO DAILY [facility] Last Admin: 05/17/20 09:24 Dose: 1 tab Documented by: Duloxetine HCl (Cymbalta -) 40 mg PO DAILY [facility] Last Admin: 05/17/20 09:23 Dose: 40 mg Documented by: Furosemide (Lasix Injection -) 80 mg IVPB BID@0600,1400 [facility] Last Admin: 05/17/20 13:13 Dose: 80 mg Documented by: Gabapentin (Neurontin -) 100 mg PO BID [facility] Last Admin: 05/17/20 09:24 Dose: 100 mg Documented by: Piperacillin Sod/Tazobactam (Sod 2.25 gm/ Dextrose) 50 mls @ 100 mls/hr IVPB Q8H-IV [facility]; Protocol Last Admin: 05/17/20 17:09 Dose: 100 mls/hr Documented by: Insulin Aspart (Novolog Vial Sliding Scale -) 1 vial SQ ACHS [facility]; Protocol Last Admin: 05/17/20 17:09 Dose: 10 units Documented by: Metoprolol Succinate (Toprol Xl -) 25 mg PO DAILY [facility] Last Admin: 05/17/20 09:24 Dose: 25 mg Documented by: Pantoprazole Sodium (Protonix -) 40 mg PO DAILY [facility] Last Admin: 05/17/20 09:23 Dose: 40 mg Documented by: Zolpidem Tartrate (Ambien -) 5 mg PO HS PRN PRN Reason: INSOMNIA Last Admin: 05/16/20 22:23 Dose: 5 mg Documented by: - Objective Vital Signs: Vital Signs Temperature 98.7 F 05/17/20 14:00 Pulse Rate 78 05/17/20 14:00 Respiratory Rate 20 05/17/20 14:00 Blood Pressure 129/69 05/17/20 14:00 O2 Sat by Pulse Oximetry (%) 100 05/17/20 14:00 Constitutional: Yes: No Distress, Calm Cardiovascular: Yes: Regular Rate and Rhythm Respiratory: Yes: Diminished, Other (NRB) Gastrointestinal: Yes: Normal Bowel Sounds, Soft, Abdomen, Obese Wound/Incision: Yes: Other (Lt foot mild edema, + malleolar ulcer, mild erythema) Neurological: Yes: Alert, Oriented Labs: CBC, BMP 05/17/20 07:51 05/17/20 06:00 INR, PTT INR 1.20 (0.83-1.09) H 05/12/20 14:48 Laboratory Last Values WBC 7.8 K/mm3 (4.0-10.0) 05/17/20 07:51 RBC 2.66 M/mm3 (4.00-5.60) L 05/17/20 07:51 Hgb 7.4 GM/dL (11.7-16.9) L 05/17/20 07:51 Hct 23.2 % (35.4-49) L 05/17/20 07:51 MCV 87.1 fl (80-96) 05/17/20 07:51 MCH 27.8 pg (25.7-33.7) 05/17/20 07:51 MCHC 31.9 g/dl (32.0-35.9) L 05/17/20 07:51 RDW 15.5 % (11.9-15.9) 05/17/20 07:51 Plt Count 166 K/MM3 (134-434) 05/17/20 07:51 MPV 9.9 fl (7.5-11.1) 05/17/20 07:51 Absolute Neuts (auto) 5.9 K/mm3 (1.5-8.0) 05/17/20 07:51 Neutrophils % 75.7 % (42.8-82.8) 05/17/20 07:51 Lymphocytes % 9.5 % (8-40) D 05/17/20 07:51 Monocytes % 10.3 % (3.8-10.2) H 05/17/20 07:51 Eosinophils % 3.9 % (0-4.5) 05/17/20 07:51 Basophils % 0.6 % (0-2.0) 05/17/20 07:51 Nucleated RBC % 0 % (0-0) 05/17/20 07:51 ESR 105 mm/hr (0-20) H 05/12/20 14:48 PT with INR 14.20 SEC (9.7-13.0) H 05/12/20 14:48 INR 1.20 (0.83-1.09) H 05/12/20 14:48 Sodium 140 mmol/L (136-145) 05/17/20 06:00 Potassium 4.0 mmol/L (3.5-5.1) 05/17/20 06:00 Chloride 106 mmol/L (98-107) 05/17/20 06:00 Carbon Dioxide 24 mmol/L (21-32) 05/17/20 06:00 Anion Gap 9 MMOL/L (8-16) 05/17/20 06:00 BUN 63.5 mg/dL (7-18) H 05/17/20 06:00 Creatinine 6.1 mg/dL (0.55-1.3) H 05/17/20 06:00 Est GFR (CKD-EPI)AfAm 9.82 05/17/20 06:00 Est GFR (CKD-EPI)NonAf 8.47 05/17/20 06:00 POC Glucometer 378 UNITS (80-120) 05/17/20 16:21 Random Glucose 279 mg/dL (74-106) H 05/17/20 06:00 Lactic Acid 1.8 mmol/L (0.4-2.0) 05/12/20 14:48 Calcium 7.4 mg/dL (8.5-10.1) L 05/17/20 06:00 Phosphorus 4.8 mg/dL (2.5-4.9) 05/16/20 07:25 Magnesium 2.0 mg/dL (1.8-2.4) 05/16/20 07:25 Iron 12 ug/dL (50-175) L 05/14/20 07:38 TIBC 189 ug/dL (250-450) L 05/14/20 07:38 Iron Saturation 6 % (17.5-39) L 05/14/20 07:38 Unsaturated IBC 177 ug/dL (200-275) L 05/14/20 07:38 Ferritin 63.6 ng/ml (8-388) 05/14/20 07:38 Total Bilirubin 0.4 mg/dL (0.2-1) 05/17/20 06:00 AST 14 U/L (15-37) L 05/17/20 06:00 ALT 21 U/L (13-61) 05/17/20 06:00 Alkaline Phosphatase 70 U/L (45-117) 05/17/20 06:00 C-Reactive Protein 1.6 MG/DL (0.00-0.3) H 05/12/20 14:48 Total Protein 5.6 g/dl (6.4-8.2) L 05/17/20 06:00 Albumin 1.8 g/dl (3.4-5.0) L 05/17/20 06:00 Urine Color Yellow 05/12/20 18:45 Urine Appearance Clear 05/12/20 18:45 Urine pH 6.0 (5.0-8.0) 05/12/20 18:45 Ur Specific [place] 1.015 (1.010-1.035) 05/12/20 18:45 Urine Protein 3+ (NEGATIVE) H 05/12/20 18:45 Urine Glucose (UA) 3+ (NEGATIVE) H 05/12/20 18:45 Urine Ketones Negative (NEGATIVE) 05/12/20 18:45 Urine Blood 1+ (NEGATIVE) H 05/12/20 18:45 Urine Nitrite Negative (NEGATIVE) 05/12/20 18:45 Urine Bilirubin Negative (NEGATIVE) 05/12/20 18:45 Urine Urobilinogen 0.2 mg/dL (0.2-1.0) 05/12/20 18:45 Ur Leukocyte Esterase Negative (NEGATIVE) 05/12/20 18:45 Urine WBC (Auto) 9 /uL (0-25.8) 05/12/20 18:45 Urine RBC (Auto) 20 /uL (0-23.9) 05/12/20 18:45 Urine Casts (Auto) 1 /uL (0-3.1) 05/12/20 18:45 U Epithel Cells (Auto) 6 /uL (0-25.1) 05/12/20 18:45 Urine Bacteria (Auto) 10 /uL (0-1359) 05/12/20 18:45 Random Vancomycin 11.2 ug/ml (5-26) 05/14/20 07:38 COVID-19 (PRISCILLA) Not detected (Not Detected) 05/13/20 10:00 Blood Type A POSITIVE 05/12/20 14:48 Antibody Screen Negative 05/12/20 14:48 Microbiology 05/12/20 14:48 Blood - Peripheral Venous Blood Culture - Final NO GROWTH AFTER 5 DAYS INCUBATION 05/12/20 14:48 Blood - Peripheral Venous Blood Culture - Final NO GROWTH AFTER 5 DAYS INCUBATION 05/12/20 14:48 Foot - Left Gram Stain - Final 05/12/20 14:48 Foot - Left Wound Culture - Final Enterobacter Cloacae Enterococcus Casseliflavus Enterococcus Faecalis Staphylococcus Coagulase Neg - ....Imaging Chest X-ray: Report Reviewed X-ray: Report Reviewed Problem List - Problems (1) Acute congestive heart failure Code(s): I50.9 - HEART FAILURE, UNSPECIFIED (2) Atrial fibrillation Code(s): I48.91 - UNSPECIFIED ATRIAL FIBRILLATION (3) Diabetic ulcer of left foot Code(s): E11.621 - TYPE 2 DIABETES MELLITUS WITH FOOT ULCER; L97.529 - NON- PRESSURE CHRONIC ULCER OTH PRT LEFT FOOT W UNSP SEVERITY Qualifiers: Diabetic foot ulcer location: unspecified part of foot Diabetes mellitus type: type 2 Non-pressure ulcer stage: unspecified non-pressure ulcer stage Qualified Code(s): E11.621 - Type 2 diabetes mellitus with foot ulcer; L97.529 - Non-pressure chronic ulcer of other part of left foot with unspecified severity (4) Shortness of breath Code(s): R06.02 - SHORTNESS OF BREATH (5) Acute on chronic renal failure Code(s): N17.9 - ACUTE KIDNEY FAILURE, UNSPECIFIED; N18.9 - CHRONIC KIDNEY DISEASE, UNSPECIFIED (6) Diabetic foot infection Code(s): E11.628 - TYPE 2 DIABETES MELLITUS WITH OTHER SKIN COMPLICATIONS; L08.9 - LOCAL INFECTION OF THE SKIN AND SUBCUTANEOUS TISSUE, UNSP (7) Diabetic neuropathy Code(s): E11.40 - TYPE 2 DIABETES MELLITUS WITH DIABETIC NEUROPATHY, UNSP (8) Hx of CABG Code(s): Z95.1 - PRESENCE OF AORTOCORONARY BYPASS GRAFT (9) PAD (peripheral artery disease) Code(s): I73.9 - PERIPHERAL VASCULAR DISEASE, UNSPECIFIED (10) CAD (coronary artery disease) Code(s): I25.10 - ATHSCL HEART DISEASE OF [place] CORONARY ARTERY W/O ANG PCTRS Qualifiers: Coronary Disease-Associated Artery/Lesion type: [place] artery [place] vs. transplanted heart: [place] heart Associated angina: without angina Qualified Code(s): I25.10 - Atherosclerotic heart disease of [place] coronary artery without angina pectoris (11) Hyperlipidemia Code(s): E78.5 - HYPERLIPIDEMIA, UNSPECIFIED Qualifiers: Hyperlipidemia type: pure hypercholesterolemia Qualified Code(s): E78.00 - Pure hypercholesterolemia, unspecified; E78.0 - Pure hypercholesterolemia (12) Hypertension Code(s): I10 - ESSENTIAL (PRIMARY) HYPERTENSION Qualifiers: Hypertension type: essential hypertension Qualified Code(s): I10 - Essential (primary) hypertension Assessment/Plan Lt malleolar ulcer r/o OM Lt foot cellulitis Acute resp failure - on NRBM Acute on Chronic renal failure Acute on Chronic HF ? PNA Uncontrolled DM with neuropathy Anemia CAD AFIB s/p CVA Obesity BOBY -- pt is alert, afebrile, Tmax 99F, now on NRB -- continue Zosyn -- MRI can not be done, suggest triple-phase bone scan -- Nephrology following -- needs tight glycemic control -- continue wound care continue monitor vitals
[2020-05-17] MEDS: ATORVASTATIN CA 20 MG TABLET (FP) PO SCH (21:10)
--- NOTE | 2020-05-17 21:57 | PN ---
Progress Note, Physician History of Present Illness: Pt more lethargic - Current Medication List Current Medications: Active Medications Albuterol Sulfate (Ventolin 0.083% Nebulizer Soln -) 1 amp NEB Q4H PRN PRN Reason: SHORT OF BREATH/WHEEZING Albuterol/Ipratropium (Duoneb -) 1 amp NEB RQID [facility] Last Admin: 05/17/20 20:55 Dose: 1 amp Documented by: Amlodipine Besylate (Norvasc -) 5 mg PO DAILY [facility] Last Admin: 05/17/20 09:24 Dose: 5 mg Documented by: Apixaban (Eliquis -) 2.5 mg PO BID [facility] Last Admin: 05/17/20 21:10 Dose: 2.5 mg Documented by: Aspirin (Ecotrin -) 81 mg PO DAILY [facility] Last Admin: 05/17/20 09:24 Dose: 81 mg Documented by: Atorvastatin Calcium (Lipitor -) 20 mg PO HS [facility] Last Admin: 05/17/20 21:10 Dose: 20 mg Documented by: Calcium Carbonate/Cholecalciferol (Os-Osvaldo 500+D -) 1 tab PO DAILY [facility] Last Admin: 05/17/20 09:24 Dose: 1 tab Documented by: Duloxetine HCl (Cymbalta -) 40 mg PO DAILY [facility] Last Admin: 05/17/20 09:23 Dose: 40 mg Documented by: Furosemide (Lasix Injection -) 80 mg IVPB BID@0600,1400 [facility] Last Admin: 05/17/20 13:13 Dose: 80 mg Documented by: Gabapentin (Neurontin -) 100 mg PO BID [facility] Last Admin: 05/17/20 21:10 Dose: 100 mg Documented by: Piperacillin Sod/Tazobactam (Sod 2.25 gm/ Dextrose) 50 mls @ 100 mls/hr IVPB Q8H-IV [facility]; Protocol Last Admin: 05/17/20 17:09 Dose: 100 mls/hr Documented by: Insulin Aspart (Novolog Vial Sliding Scale -) 1 vial SQ ACHS [facility]; Protocol Last Admin: 05/17/20 21:11 Dose: 6 units Documented by: Metoprolol Succinate (Toprol Xl -) 25 mg PO DAILY [facility] Last Admin: 05/17/20 09:24 Dose: 25 mg Documented by: Pantoprazole Sodium (Protonix -) 40 mg PO DAILY [facility] Last Admin: 05/17/20 09:23 Dose: 40 mg Documented by: Zolpidem Tartrate (Ambien -) 5 mg PO HS PRN PRN Reason: INSOMNIA Last Admin: 05/16/20 22:23 Dose: 5 mg Documented by: - Objective Vital Signs: Vital Signs Temperature 98.5 F 05/17/20 19:04 Pulse Rate 77 05/17/20 19:04 Respiratory Rate 20 05/17/20 14:00 Blood Pressure 116/58 L 05/17/20 19:04 O2 Sat by Pulse Oximetry (%) 100 05/17/20 14:00 Cardiovascular: Yes: WNL, Regular Rate and Rhythm Respiratory: Yes: Diminished Gastrointestinal: Yes: WNL, Normal Bowel Sounds, Soft, Abdomen, Obese Labs: CBC, BMP 05/17/20 07:51 05/17/20 06:00 INR, PTT INR 1.20 (0.83-1.09) H 05/12/20 14:48 Problem List - Problems (1) Pneumonia Assessment/Plan: Cont IV antibxs Repeat COVID testing Code(s): J18.9 - PNEUMONIA, UNSPECIFIED ORGANISM (2) CHF (congestive heart failure) Assessment/Plan: Pt given IV lasix CXR shows worsening congestion Code(s): I50.9 - HEART FAILURE, UNSPECIFIED (3) Diabetic ulcer of left foot Assessment/Plan: Cont IV Zosyn/Vanco Wound culture (+) for enterobacter/Grp D strept Will need to find out if pt can have MRI w/ penile implant Code(s): E11.621 - TYPE 2 DIABETES MELLITUS WITH FOOT ULCER; L97.529 - NON- PRESSURE CHRONIC ULCER OTH PRT LEFT FOOT W UNSP SEVERITY Qualifiers: Diabetic foot ulcer location: unspecified part of foot Diabetes mellitus type: type 2 Non-pressure ulcer stage: unspecified non-pressure ulcer stage Qualified Code(s): E11.621 - Type 2 diabetes mellitus with foot ulcer; L97.529 - Non-pressure chronic ulcer of other part of left foot with unspecified severity (4) Acute on chronic renal failure Assessment/Plan: As per renal no dialysis at this time Cont to monitor Monitor BUN/creatinine Code(s): N17.9 - ACUTE KIDNEY FAILURE, UNSPECIFIED; N18.9 - CHRONIC KIDNEY DISEASE, UNSPECIFIED (5) Atrial fibrillation Assessment/Plan: renal dosing of eliquis Rate controlled Code(s): I48.91 - UNSPECIFIED ATRIAL FIBRILLATION (6) Diabetic neuropathy Code(s): E11.40 - TYPE 2 DIABETES MELLITUS WITH DIABETIC NEUROPATHY, UNSP (7) Hx of CABG Code(s): Z95.1 - PRESENCE OF AORTOCORONARY BYPASS GRAFT (8) PAD (peripheral artery disease) Code(s): I73.9 - PERIPHERAL VASCULAR DISEASE, UNSPECIFIED (9) CAD (coronary artery disease) Code(s): I25.10 - ATHSCL HEART DISEASE OF [place] CORONARY ARTERY W/O ANG PCTRS Qualifiers: Coronary Disease-Associated Artery/Lesion type: [place] artery [place] vs. transplanted heart: [place] heart Associated angina: without angina Qualified Code(s): I25.10 - Atherosclerotic heart disease of [place] coronary artery without angina pectoris (10) Diabetes mellitus Code(s): E11.9 - TYPE 2 DIABETES MELLITUS WITHOUT COMPLICATIONS Qualifiers: Diabetes mellitus type: type 2 Diabetes mellitus custodial insulin use: without intermediate designer use Diabetes mellitus complication status: with circulatory complication Diabetes mellitus complication detail: with peripheral angiopathy without gangrene Qualified Code(s): E11.51 - Type 2 diabetes mellitus with diabetic peripheral angiopathy without gangrene (11) Hyperlipidemia Code(s): E78.5 - HYPERLIPIDEMIA, UNSPECIFIED Qualifiers: Hyperlipidemia type: pure hypercholesterolemia Qualified Code(s): E78.00 - Pure hypercholesterolemia, unspecified; E78.0 - Pure hypercholesterolemia (12) Hypertension Code(s): I10 - ESSENTIAL (PRIMARY) HYPERTENSION Qualifiers: Hypertension type: essential hypertension Qualified Code(s): I10 - Essential (primary) hypertension
[2020-05-17] MEDS: ZOLPIDEM TARTRATE 5 MG TABLET PO PRN (23:30)
[2020-05-18] MEDS ORDERED: PIPERACILLIN/TAZOBACTAM 2.25 GM VIAL IVPB ONE ×3 (01:51→18:38)
[2020-05-18] MEDS ORDERED: DEXTROSE 5%-WATER - 50 ML IVPB ONE ×3 (01:51→18:38)
[2020-05-18] MEDS: PIPERACILLIN/TAZOB 2.25 GM 2.25 GM in DEXTROSE 5%-WATER - 50 ML IVPB SCH ×3 (02:08→18:39)
[2020-05-18] MEDS: FUROSEMIDE 40 MG/4 ML INJECTABLE VIAL IVPB SCH ×2 (06:36→15:07)
[2020-05-18] MEDS: INSULIN SLIDING SCALE (NOVOLOG) 1 VIAL SQ SCH ×4 (06:38→22:14)
--- NOTE | 2020-05-18 07:46 | CON.ENT ---
Consult Consult Specialty:: ENT Referred by:: Dr. Judge Reason for Consultation:: ear pain, hearing loss - History of Present Illness Chief Complaint: ears clogged History of Present Illness: 70 yo M admitted with COPD, shortness of breath hx diabetic foot ulcer has been gettting hyperbaric oxygen treatments, noted bilateral ear congestion for several weeks, discomfort, annoying, with reduction in hearing, also has some pounding sounds in the ears. denies ear problems prior to this - History Source History Provided By: Patient, Medical Record Limitations to Obtaining History: No Limitations - Past Medical History CHILD PSYCHIATRIST: Yes: CVA Cardio/Vascular: Yes: AFIB, CAD, CHF, HTN, Hyperlipdemia, Other (PAD) Renal/: Yes: Renal Failure, Renal Inusuff Infectious Disease: Yes: MRSA (Lt finger abscess) Endocrine: Yes: Diabetes Mellitus Dermatology: Yes: Cellulitis - Past Surgical History Past Surgical History: Yes: Bariatric Surgery, CABG, Carotid Endarterectomy - Alcohol/Substance Use Hx Alcohol Use: No History of Substance Use: reports: None - Smoking History Smoking history: Unknown if ever smoked Have you smoked in the past 12 months: No If you are a former smoker, when did you quit?: 25 years ago - Social History ADL: Independent History of Recent Travel: No Home Medications - Allergies Allergies/Adverse Reactions: Allergies Allergy/AdvReac Type Severity Reaction Status Date / Time levofloxacin [From Levaquin] Allergy Intermediate Verified 05/12/20 14:16 morphine Allergy Intermediate Vomiting Verified 05/12/20 14:16 codeine AdvReac Verified 05/12/20 14:16 egg AdvReac Vomiting Verified 05/12/20 14:16 egg yolk AdvReac Vomiting Verified 05/12/20 14:16 - Home Medications Home Medications: Ambulatory Orders Aspirin Coated [Ecotrin -] 81 mg PO DAILY 11/18/17 Zolpidem Tartrate [Ambien] 10 mg PO HS 01/06/18 Duloxetine HCl 40 mg PO DAILY 07/20/19 Pregabalin [Lyrica -] 50 mg PO BID MDD 2 07/20/19 Apixaban [Eliquis -] 5 mg PO BID 12/24/19 Gabapentin [Neurontin -] 100 mg PO BID 04/12/20 Insulin Aspart [Novolog] 0 unit SQ ASDIR 04/12/20 Amlodipine Besylate [Norvasc -] 5 mg PO DAILY #30 tablet 04/18/20 Atorvastatin Ca [Lipitor] 20 mg PO HS #30 tablet 04/18/20 Calcium 500Mg/Vit-D 200 Units [Os-Osvaldo 500+D -] 1 tab PO DAILY #30 tab 04/18/20 Collagenase Clostridium Hist. [Santyl -] 1 applic TP DAILY #1 tube 04/18/20 Metoprolol Succinate [Toprol XL -] 25 mg PO DAILY #30 tab.sr.24h 04/18/20 Pantoprazole Sodium [Protonix -] 40 mg PO DAILY #30 tablet.ec 04/18/20 Physical Exam-ENT Vital Signs: Vital Signs Temperature 98.7 F 05/18/20 05:40 Pulse Rate 80 05/18/20 05:40 Respiratory Rate 18 05/18/20 05:40 Blood Pressure 137/69 05/18/20 05:40 O2 Sat by Pulse Oximetry (%) 98 05/18/20 05:40 Problem List - Problems (1) Ear congestion Assessment/Plan: bilateral ear clogging precipitated by hyperbaric oxygen treatments Eustachian tube dysfunctin with acute serous otitis media suspected Recommend: continue managing acute respiratory condition sometimes this resolves spontaneously to office after discharge for audiogram if this does not resolve, then office procedure (myringotomy) can resolve the fluid and improve the hearing Thank you for consultation, Benji Medel MD FACS Code(s): H93.8X9 - OTHER SPECIFIED DISORDERS OF EAR, UNSPECIFIED EAR Qualifiers: Laterality: bilateral Qualified Code(s): H93.8X3 - Other specified disorders of ear, bilateral
[2020-05-18] MEDS: ALBUTEROL SO4 2.5/IPRATROPIUM 0.5 INH SOL 3 ML VIAL.NEB. NEB SCH ×4 (08:47→20:28)
[2020-05-18] MEDS ORDERED: PT OWN MED DRAWER 7, Y5N ONE (09:35)
[2020-05-18] MEDS: CALCIUM 500MG/VIT-D 200 UNITS COMBO TABLET (FP) PO SCH (09:37)
[2020-05-18] MEDS: amLODIPine BESYLATE 5 MG TABLET (FP) PO SCH (09:37)
[2020-05-18] MEDS: PANTOPRAZOLE 40 MG TABLET PO SCH (09:38)
[2020-05-18] MEDS: DULoxetine HCL 20 MG CAPSULE.DR PO SCH (09:38)
[2020-05-18] MEDS: APIXABAN 2.5 MG TABLET PO SCH ×2 (09:38→22:15)
[2020-05-18] MEDS: ASPIRIN COATED 81 MG TABLET.EC PO SCH (09:38)
[2020-05-18] MEDS: GABAPENTIN 100 MG CAPSULE PO SCH ×2 (09:38→22:15)
[2020-05-18] MEDS: metoPROLOL SUCCINATE 25 MG TAB.SR.24H (FP) PO SCH (09:38)
[2020-05-18] MEDS ORDERED: methylPREDNISolone NA SUCC 40 MG/1 ML VIAL IVPUSH ONE (11:04)
--- NOTE | 2020-05-18 11:04 | PN ---
Progress Note (short form) - Note Progress Note: PULMONARY Remains on NRB. Still feels congested. No fevers, chills. Vital Signs Period Temp Pulse Resp BP Sys/Snow Pulse Ox Last 24 Hr 98.5 F-98.7 F 77-80 18-20 116-137/56-69 98-100 Gen: less tachypneic Heart: RRR Lung: bilateral rhonchi, wheezes Abd: soft, nontender Ext: no edema CBC, BMP 05/17/20 07:51 05/17/20 06:00 Active Medications Albuterol Sulfate (Ventolin 0.083% Nebulizer Soln -) 1 amp NEB Q4H PRN PRN Reason: SHORT OF BREATH/WHEEZING Albuterol/Ipratropium (Duoneb -) 1 amp NEB RQID [facility] Last Admin: 05/18/20 08:47 Dose: Not Given Documented by: Amlodipine Besylate (Norvasc -) 5 mg PO DAILY [facility] Last Admin: 05/18/20 09:37 Dose: 5 mg Documented by: Apixaban (Eliquis -) 2.5 mg PO BID [facility] Last Admin: 05/18/20 09:38 Dose: 2.5 mg Documented by: Aspirin (Ecotrin -) 81 mg PO DAILY [facility] Last Admin: 05/18/20 09:38 Dose: 81 mg Documented by: Atorvastatin Calcium (Lipitor -) 20 mg PO HS [facility] Last Admin: 05/17/20 21:10 Dose: 20 mg Documented by: Calcium Carbonate/Cholecalciferol (Os-Osvaldo 500+D -) 1 tab PO DAILY [facility] Last Admin: 05/18/20 09:37 Dose: 1 tab Documented by: Duloxetine HCl (Cymbalta -) 40 mg PO DAILY [facility] Last Admin: 05/18/20 09:38 Dose: 40 mg Documented by: Furosemide (Lasix Injection -) 80 mg IVPB BID@0600,1400 [facility] Last Admin: 05/18/20 06:36 Dose: 80 mg Documented by: Gabapentin (Neurontin -) 100 mg PO BID [facility] Last Admin: 05/18/20 09:38 Dose: 100 mg Documented by: Piperacillin Sod/Tazobactam (Sod 2.25 gm/ Dextrose) 50 mls @ 100 mls/hr IVPB Q8H-IV [facility]; Protocol Last Admin: 05/18/20 09:38 Dose: 100 mls/hr Documented by: Insulin Aspart (Novolog Vial Sliding Scale -) 1 vial SQ ACHS [facility]; Protocol Last Admin: 05/18/20 06:38 Dose: 4 units Documented by: Metoprolol Succinate (Toprol Xl -) 25 mg PO DAILY [facility] Last Admin: 05/18/20 09:38 Dose: 25 mg Documented by: Pantoprazole Sodium (Protonix -) 40 mg PO DAILY [facility] Last Admin: 05/18/20 09:38 Dose: 40 mg Documented by: Zolpidem Tartrate (Ambien -) 5 mg PO HS PRN PRN Reason: INSOMNIA Last Admin: 05/17/20 23:30 Dose: 5 mg Documented by: A/P Acute on Chronic Diastolic Heart Failure Acute on Chronic Renal Failure Cellulitis r/o Pneumonia CAD s/p CABG HTN DM PAD - continue lasix - monitor urine output, creatinine - O2 to keep SpO2 >90% - inhaled bronchodilators - will give trial dose of medrol - continue antibiotics - monitor CXR - DVT prophylaxis
[2020-05-18] MEDS ORDERED: INSULIN (NOVOLOG) ASPART 100 UNITS/ML 10ML VIAL ONE ×2 (11:33→16:59)
[2020-05-18] MEDS ORDERED: methylPREDNISolone NA SUCC 125 MG/2 ML VIAL ONE (12:40)
[2020-05-18 13:25] LABS: BLOOD UREA NITROGEN 66.7 mg/dL (7-18)
[2020-05-18 13:26] LABS: CALCIUM 7.1 mg/dL (8.5-10.1); CREATININE 6.4 mg/dL (0.55-1.3); POTASSIUM 4.4 mmol/L (3.5-5.1)
--- NOTE | 2020-05-18 13:30 | PN ---
Progress Note, Physician Chief Complaint: Leg ulcer History of Present Illness: Seen and examined at the bedside awake and alert less drowsy making a lot of urine as per patient still has labored breathing on NRB mask . - Current Medication List Current Medications: Active Medications Albuterol Sulfate (Ventolin 0.083% Nebulizer Soln -) 1 amp NEB Q4H PRN PRN Reason: SHORT OF BREATH/WHEEZING Albuterol/Ipratropium (Duoneb -) 1 amp NEB RQID [facility] Last Admin: 05/18/20 11:30 Dose: Not Given Documented by: Amlodipine Besylate (Norvasc -) 5 mg PO DAILY [facility] Last Admin: 05/18/20 09:37 Dose: 5 mg Documented by: Apixaban (Eliquis -) 2.5 mg PO BID [facility] Last Admin: 05/18/20 09:38 Dose: 2.5 mg Documented by: Aspirin (Ecotrin -) 81 mg PO DAILY [facility] Last Admin: 05/18/20 09:38 Dose: 81 mg Documented by: Atorvastatin Calcium (Lipitor -) 20 mg PO HS [facility] Last Admin: 05/17/20 21:10 Dose: 20 mg Documented by: Calcium Carbonate/Cholecalciferol (Os-Osvaldo 500+D -) 1 tab PO DAILY [facility] Last Admin: 05/18/20 09:37 Dose: 1 tab Documented by: Duloxetine HCl (Cymbalta -) 40 mg PO DAILY [facility] Last Admin: 05/18/20 09:38 Dose: 40 mg Documented by: Furosemide (Lasix Injection -) 80 mg IVPB BID@0600,1400 [facility] Last Admin: 05/18/20 06:36 Dose: 80 mg Documented by: Gabapentin (Neurontin -) 100 mg PO BID [facility] Last Admin: 05/18/20 09:38 Dose: 100 mg Documented by: Piperacillin Sod/Tazobactam (Sod 2.25 gm/ Dextrose) 50 mls @ 100 mls/hr IVPB Q8H-IV [facility]; Protocol Last Admin: 05/18/20 09:38 Dose: 100 mls/hr Documented by: Insulin Aspart (Novolog Vial Sliding Scale -) 1 vial SQ ACHS [facility]; Protocol Last Admin: 05/18/20 11:36 Dose: 10 units Documented by: Metoprolol Succinate (Toprol Xl -) 25 mg PO DAILY [facility] Last Admin: 05/18/20 09:38 Dose: 25 mg Documented by: Pantoprazole Sodium (Protonix -) 40 mg PO DAILY [facility] Last Admin: 05/18/20 09:38 Dose: 40 mg Documented by: Zolpidem Tartrate (Ambien -) 5 mg PO HS PRN PRN Reason: INSOMNIA Last Admin: 05/17/20 23:30 Dose: 5 mg Documented by: - Objective Vital Signs: Vital Signs Temperature 99.0 F 05/18/20 13:17 Pulse Rate 83 05/18/20 13:17 Respiratory Rate 18 05/18/20 13:17 Blood Pressure 127/61 05/18/20 13:17 O2 Sat by Pulse Oximetry (%) 99 05/18/20 13:17 Constitutional: Yes: No Distress HENT: Yes: Atraumatic Neck: Yes: Supple Cardiovascular: Yes: Regular Rate and Rhythm Respiratory: Yes: Diminished, On Venti-Mask, Rhonchi, SOB Gastrointestinal: Yes: Soft Extremities: No: Cyanosis Edema: No Neurological: Yes: Alert Labs: CBC, BMP 05/17/20 07:51 05/18/20 12:44 INR, PTT INR 1.20 (0.83-1.09) H 05/12/20 14:48 Assessment/Plan 69 year old male with PMHx of CKD stage 5 (Last outpatient Cr 5), hypertension, DM, PVD, CAD s/p CABG who was sent in from the wound care clinic with LE wound and found to have suspected cellulitis. 1. CKD stage 5 not yet on dialysis 2. LE wound 3. Cellulitis of the lower extremity 4. Hypertension 5. DM 6. Chronic anemia Renal function gradually worsening, no acute need for dialysis at this time. Continue to monitor renal function and electrolytes daily Continue IV Lasix BID Check CXR today Trend urine output and daily weights. We will titrate diuretics with goal of euvolemic. Continue antibiotics for lower extremity cellulitis. Vascular workup is ongoing. Jonah Painting DO
--- NOTE | 2020-05-18 15:11 | PN ---
Progress Note, Physician History of Present Illness: DOING WELL WEANING FROM NRB - Current Medication List Current Medications: Active Medications Albuterol Sulfate (Ventolin 0.083% Nebulizer Soln -) 1 amp NEB Q4H PRN PRN Reason: SHORT OF BREATH/WHEEZING Albuterol/Ipratropium (Duoneb -) 1 amp NEB RQID [facility] Last Admin: 05/18/20 15:07 Dose: 1 amp Documented by: Amlodipine Besylate (Norvasc -) 5 mg PO DAILY [facility] Last Admin: 05/18/20 09:37 Dose: 5 mg Documented by: Apixaban (Eliquis -) 2.5 mg PO BID [facility] Last Admin: 05/18/20 09:38 Dose: 2.5 mg Documented by: Aspirin (Ecotrin -) 81 mg PO DAILY [facility] Last Admin: 05/18/20 09:38 Dose: 81 mg Documented by: Atorvastatin Calcium (Lipitor -) 20 mg PO HS [facility] Last Admin: 05/17/20 21:10 Dose: 20 mg Documented by: Calcium Carbonate/Cholecalciferol (Os-Osvaldo 500+D -) 1 tab PO DAILY [facility] Last Admin: 05/18/20 09:37 Dose: 1 tab Documented by: Duloxetine HCl (Cymbalta -) 40 mg PO DAILY [facility] Last Admin: 05/18/20 09:38 Dose: 40 mg Documented by: Furosemide (Lasix Injection -) 80 mg IVPB BID@0600,1400 [facility] Last Admin: 05/18/20 15:07 Dose: 80 mg Documented by: Gabapentin (Neurontin -) 100 mg PO BID [facility] Last Admin: 05/18/20 09:38 Dose: 100 mg Documented by: Piperacillin Sod/Tazobactam (Sod 2.25 gm/ Dextrose) 50 mls @ 100 mls/hr IVPB Q8H-IV [facility]; Protocol Last Admin: 05/18/20 09:38 Dose: 100 mls/hr Documented by: Insulin Aspart (Novolog Vial Sliding Scale -) 1 vial SQ ACHS [facility]; Protocol Last Admin: 05/18/20 11:36 Dose: 10 units Documented by: Metoprolol Succinate (Toprol Xl -) 25 mg PO DAILY [facility] Last Admin: 05/18/20 09:38 Dose: 25 mg Documented by: Pantoprazole Sodium (Protonix -) 40 mg PO DAILY [facility] Last Admin: 05/18/20 09:38 Dose: 40 mg Documented by: - Objective Vital Signs: Vital Signs Temperature 99.0 F 05/18/20 13:17 Pulse Rate 83 05/18/20 13:17 Respiratory Rate 18 05/18/20 13:17 Blood Pressure 127/61 05/18/20 13:17 O2 Sat by Pulse Oximetry (%) 99 05/18/20 13:17 Constitutional: Yes: No Distress HENT: Yes: Atraumatic Neck: Yes: Supple Cardiovascular: Yes: Regular Rate and Rhythm Respiratory: Yes: Rhonchi Gastrointestinal: Yes: Normal Bowel Sounds Extremities: Yes: Other (L FOOT INFECTION) Neurological: Yes: Alert, Oriented Labs: CBC, BMP 05/17/20 07:51 05/18/20 12:44 INR, PTT INR 1.20 (0.83-1.09) H 05/12/20 14:48 Problem List - Problems (1) Acute congestive heart failure Code(s): I50.9 - HEART FAILURE, UNSPECIFIED (2) Atrial fibrillation Code(s): I48.91 - UNSPECIFIED ATRIAL FIBRILLATION (3) Diabetic ulcer of left foot Code(s): E11.621 - TYPE 2 DIABETES MELLITUS WITH FOOT ULCER; L97.529 - NON- PRESSURE CHRONIC ULCER OTH PRT LEFT FOOT W UNSP SEVERITY Qualifiers: Diabetic foot ulcer location: unspecified part of foot Diabetes mellitus type: type 2 Non-pressure ulcer stage: unspecified non-pressure ulcer stage Qualified Code(s): E11.621 - Type 2 diabetes mellitus with foot ulcer; L97.529 - Non-pressure chronic ulcer of other part of left foot with unspecified severity (4) Pneumonia Code(s): J18.9 - PNEUMONIA, UNSPECIFIED ORGANISM (5) ARF (acute renal failure) Code(s): N17.9 - ACUTE KIDNEY FAILURE, UNSPECIFIED (6) Diabetic foot infection Code(s): E11.628 - TYPE 2 DIABETES MELLITUS WITH OTHER SKIN COMPLICATIONS; L08.9 - LOCAL INFECTION OF THE SKIN AND SUBCUTANEOUS TISSUE, UNSP (7) Diabetic neuropathy Code(s): E11.40 - TYPE 2 DIABETES MELLITUS WITH DIABETIC NEUROPATHY, UNSP (8) Hyperlipidemia Code(s): E78.5 - HYPERLIPIDEMIA, UNSPECIFIED Qualifiers: Hyperlipidemia type: pure hypercholesterolemia Qualified Code(s): E78.00 - Pure hypercholesterolemia, unspecified; E78.0 - Pure hypercholesterolemia (9) Hypertension Code(s): I10 - ESSENTIAL (PRIMARY) HYPERTENSION Qualifiers: Hypertension type: essential hypertension Qualified Code(s): I10 - Essential (primary) hypertension (10) PVD (peripheral vascular disease) Code(s): I73.9 - PERIPHERAL VASCULAR DISEASE, UNSPECIFIED (11) Renal insufficiency Code(s): N28.9 - DISORDER OF KIDNEY AND URETER, UNSPECIFIED Assessment/Plan Assessment/Plan Lt malleolar ulcer r/o OM Lt foot cellulitis Acute resp failure - on NRBM Acute on Chronic renal failure Acute on Chronic HF ? PNA Uncontrolled DM with neuropathy Anemia CAD AFIB s/p CVA Obesity BOBY HTN -- plan continue abx/wound care MRI L FOOT continue other meds monitor blood sugar AND BP ALL MEDS AND CONSULTS REVIEWED COVERING FOR DR GALEAS TODAY
--- NOTE | 2020-05-18 20:05 | PN ---
Progress Note, Physician History of Present Illness: Pt without new complaints. No respiratory distress at this time on O2 via NC. Denies pain in LLE. Remains afebrile. - Current Medication List Current Medications: Active Medications Albuterol Sulfate (Ventolin 0.083% Nebulizer Soln -) 1 amp NEB Q4H PRN PRN Reason: SHORT OF BREATH/WHEEZING Albuterol/Ipratropium (Duoneb -) 1 amp NEB RQID [facility] Last Admin: 05/18/20 15:07 Dose: 1 amp Documented by: Amlodipine Besylate (Norvasc -) 5 mg PO DAILY [facility] Last Admin: 05/18/20 09:37 Dose: 5 mg Documented by: Apixaban (Eliquis -) 2.5 mg PO BID [facility] Last Admin: 05/18/20 09:38 Dose: 2.5 mg Documented by: Aspirin (Ecotrin -) 81 mg PO DAILY [facility] Last Admin: 05/18/20 09:38 Dose: 81 mg Documented by: Atorvastatin Calcium (Lipitor -) 20 mg PO HS [facility] Last Admin: 05/17/20 21:10 Dose: 20 mg Documented by: Calcium Carbonate/Cholecalciferol (Os-Osvaldo 500+D -) 1 tab PO DAILY [facility] Last Admin: 05/18/20 09:37 Dose: 1 tab Documented by: Duloxetine HCl (Cymbalta -) 40 mg PO DAILY [facility] Last Admin: 05/18/20 09:38 Dose: 40 mg Documented by: Furosemide (Lasix Injection -) 80 mg IVPB BID@0600,1400 [facility] Last Admin: 05/18/20 15:07 Dose: 80 mg Documented by: Gabapentin (Neurontin -) 100 mg PO BID [facility] Last Admin: 05/18/20 09:38 Dose: 100 mg Documented by: Piperacillin Sod/Tazobactam (Sod 2.25 gm/ Dextrose) 50 mls @ 100 mls/hr IVPB Q8H-IV [facility]; Protocol Last Admin: 05/18/20 18:39 Dose: 100 mls/hr Documented by: Insulin Aspart (Novolog Vial Sliding Scale -) 1 vial SQ ACHS [facility]; Protocol Last Admin: 05/18/20 17:01 Dose: 10 units Documented by: Metoprolol Succinate (Toprol Xl -) 25 mg PO DAILY [facility] Last Admin: 07/16/20 09:38 Dose: 25 mg Documented by: Pantoprazole Sodium (Protonix -) 40 mg PO DAILY [facility] Last Admin: 05/18/20 09:38 Dose: 40 mg Documented by: - Objective Vital Signs: Vital Signs Temperature 99.0 F 05/18/20 13:17 Pulse Rate 83 05/18/20 13:17 Respiratory Rate 18 05/18/20 13:17 Blood Pressure 127/61 05/18/20 13:17 O2 Sat by Pulse Oximetry (%) 99 05/18/20 13:17 Constitutional: Yes: No Distress Cardiovascular: Yes: Regular Rate and Rhythm Respiratory: Yes: Diminished (bases), On Nasal O2, Rhonchi Gastrointestinal: Yes: Normal Bowel Sounds, Soft Wound/Incision: Yes: Other (Lt lat foot ulcer dry, no erythema, minimal edema, no drainage Lt tibial ulcer clean, no purulence, no erythema/tenderness) Neurological: Yes: Alert Labs: CBC, BMP 05/17/20 07:51 05/18/20 12:44 INR, PTT INR 1.20 (0.83-1.09) H 05/12/20 14:48 Microbiology 05/12/20 14:48 Blood - Peripheral Venous Blood Culture - Final NO GROWTH AFTER 5 DAYS INCUBATION 05/12/20 14:48 Blood - Peripheral Venous Blood Culture - Final NO GROWTH AFTER 5 DAYS INCUBATION 05/12/20 14:48 Foot - Left Gram Stain - Final 05/12/20 14:48 Foot - Left Wound Culture - Final Enterobacter Cloacae Enterococcus Casseliflavus Enterococcus Faecalis Staphylococcus Coagulase Neg - ....Imaging MRI: Pending Problem List - Problems (1) Acute congestive heart failure Code(s): I50.9 - HEART FAILURE, UNSPECIFIED (2) Atrial fibrillation Code(s): I48.91 - UNSPECIFIED ATRIAL FIBRILLATION (3) Diabetic ulcer of left foot Code(s): E11.621 - TYPE 2 DIABETES MELLITUS WITH FOOT ULCER; L97.529 - NON- PRESSURE CHRONIC ULCER OTH PRT LEFT FOOT W UNSP SEVERITY Qualifiers: Diabetic foot ulcer location: unspecified part of foot Diabetes mellitus type: type 2 Non-pressure ulcer stage: unspecified non-pressure ulcer stage Qualified Code(s): E11.621 - Type 2 diabetes mellitus with foot ulcer; L97.529 - Non-pressure chronic ulcer of other part of left foot with unspecified severity (4) Shortness of breath Code(s): R06.02 - SHORTNESS OF BREATH (5) Acute on chronic renal failure Code(s): N17.9 - ACUTE KIDNEY FAILURE, UNSPECIFIED; N18.9 - CHRONIC KIDNEY DISEASE, UNSPECIFIED (6) Diabetic foot infection Code(s): E11.628 - TYPE 2 DIABETES MELLITUS WITH OTHER SKIN COMPLICATIONS; L08.9 - LOCAL INFECTION OF THE SKIN AND SUBCUTANEOUS TISSUE, UNSP (7) Diabetic neuropathy Code(s): E11.40 - TYPE 2 DIABETES MELLITUS WITH DIABETIC NEUROPATHY, UNSP (8) Hx of CABG Code(s): Z95.1 - PRESENCE OF AORTOCORONARY BYPASS GRAFT (9) PAD (peripheral artery disease) Code(s): I73.9 - PERIPHERAL VASCULAR DISEASE, UNSPECIFIED (10) CAD (coronary artery disease) Code(s): I25.10 - ATHSCL HEART DISEASE OF [place] CORONARY ARTERY W/O ANG PCTRS Qualifiers: Coronary Disease-Associated Artery/Lesion type: [place] artery [place] vs. transplanted heart: [place] heart Associated angina: without angina Qualified Code(s): I25.10 - Atherosclerotic heart disease of [place] coronary artery without angina pectoris (11) Hyperlipidemia Code(s): E78.5 - HYPERLIPIDEMIA, UNSPECIFIED Qualifiers: Hyperlipidemia type: pure hypercholesterolemia Qualified Code(s): E78.00 - Pure hypercholesterolemia, unspecified; E78.0 - Pure hypercholesterolemia (12) Hypertension Code(s): I10 - ESSENTIAL (PRIMARY) HYPERTENSION Qualifiers: Hypertension type: essential hypertension Qualified Code(s): I10 - Essential (primary) hypertension Assessment/Plan LE r/o OM Lt foot cellulitis ? PNA Acute resp failure Acute on Chronic renal failure Acute on Chronic HF Uncontrolled DM with neuropathy Anemia CAD AFIB s/p CVA Obesity BOBY -- pt is alert, Tmax 99F., less LE erythema -- continue Zosyn x 2 more days -- f/u MRI results -- Nephrology following -- needs tight glycemic control -- continue wound care
[2020-05-18] MEDS: ATORVASTATIN CA 20 MG TABLET (FP) PO SCH (22:15)
[2020-05-18] MEDS: ZOLPIDEM TARTRATE 5 MG TABLET PO PRN (23:10)
[2020-05-18] MEDS ORDERED: INSULIN (NOVOLOG) ASPART 100 UNITS/ML 10ML VIAL SQ ONE (23:48)
[2020-05-19] MEDS ORDERED: DEXTROSE 5%-WATER - 50 ML IVPB ONE ×3 (01:57→17:08)
[2020-05-19] MEDS ORDERED: PIPERACILLIN/TAZOBACTAM 2.25 GM VIAL IVPB ONE ×3 (01:57→17:07)
[2020-05-19] MEDS: PIPERACILLIN/TAZOB 2.25 GM 2.25 GM in DEXTROSE 5%-WATER - 50 ML IVPB SCH ×3 (02:21→17:27)
[2020-05-19] MEDS: INSULIN SLIDING SCALE (NOVOLOG) 1 VIAL SQ SCH ×4 (06:19→21:45)
[2020-05-19] MEDS: FUROSEMIDE 40 MG/4 ML INJECTABLE VIAL IVPB SCH ×2 (06:19→14:55)
--- NOTE | 2020-05-19 06:53 | PN ---
Progress Note, Physician Chief Complaint: Pt A&Ox3; no chest pain, LE pain. + expiratory wheezing. History of Present Illness: Mr. Red is a 69 year old white male with PMHx of CKD stage 5, hypertension, DM (insulin pump), PVD, CAD s/p CABG 2015 (no hx [place]), PAD-->LLE stent 2017 (Dr. Carolyn Garcia), CVA ("three TIAs", with residual mild left-sided weakness), s/p Rt Carotid endarterectomy 2015, diastolic CHF, s/p atrial "flutter"-->ablation Rx 06/2019 at [facility] (now on metoprolol and apixaban), anemia, elevated TNI since at least 2017, obesity (s/p gastric bypass surgery; weighed 285 lbs before the surgery), who was sent in from the wound care clinic with LE (dorsum of left foot) wound, and found to have suspected cellulitis. He says he was told he would "need surgery" (he says he has been walking regularly, and that the wound does not impede this). Seen and examined at the bedside. Pt follows with Dr. Shy Brown as an outpatient for CKD, was last seen by him May 03. He offers no acute complaints at this time. No SOB, CP, fever, chills, N/V/D, flank pain, dysuria or frequency. Making urine. No leg swelling. PMD: Dr. Joaquín Adam Molecular Modeler: Dr. James, [facility] Surgical Hx: spinal disk replacement kidney stone removal/stent CABG 2015 bariatric surgery 04/19 [facility] (R) 12/22 EPS: ablation of atrial flutter 06/21 berto LE laser vein surgery - Current Medication List Current Medications: Active Medications Albuterol Sulfate (Ventolin 0.083% Nebulizer Soln -) 1 amp NEB Q4H PRN PRN Reason: SHORT OF BREATH/WHEEZING Albuterol/Ipratropium (Duoneb -) 1 amp NEB RQID [facility] Last Admin: 05/18/20 20:28 Dose: 1 amp Documented by: Amlodipine Besylate (Norvasc -) 5 mg PO DAILY [facility] Last Admin: 05/18/20 09:37 Dose: 5 mg Documented by: Apixaban (Eliquis -) 2.5 mg PO BID [facility] Last Admin: 05/18/20 22:15 Dose: 2.5 mg Documented by: Aspirin (Ecotrin -) 81 mg PO DAILY [facility] Last Admin: 05/18/20 09:38 Dose: 81 mg Documented by: Atorvastatin Calcium (Lipitor -) 20 mg PO HS [facility] Last Admin: 05/18/20 22:15 Dose: 20 mg Documented by: Calcium Carbonate/Cholecalciferol (Os-Osvaldo 500+D -) 1 tab PO DAILY [facility] Last Admin: 05/18/20 09:37 Dose: 1 tab Documented by: Duloxetine HCl (Cymbalta -) 40 mg PO DAILY [facility] Last Admin: 05/18/20 09:38 Dose: 40 mg Documented by: Furosemide (Lasix Injection -) 80 mg IVPB BID@0600,1400 [facility] Last Admin: 05/19/20 06:19 Dose: 80 mg Documented by: Gabapentin (Neurontin -) 100 mg PO BID [facility] Last Admin: 05/18/20 22:15 Dose: 100 mg Documented by: Piperacillin Sod/Tazobactam (Sod 2.25 gm/ Dextrose) 50 mls @ 100 mls/hr IVPB Q8H-IV [facility]; Protocol Last Admin: 05/19/20 02:21 Dose: 100 mls/hr Documented by: Insulin Aspart (Novolog Vial Sliding Scale -) 1 vial SQ ACHS [facility]; Protocol Last Admin: 05/19/20 06:19 Dose: 10 units Documented by: Metoprolol Succinate (Toprol Xl -) 25 mg PO DAILY [facility] Last Admin: 05/18/20 09:38 Dose: 25 mg Documented by: Pantoprazole Sodium (Protonix -) 40 mg PO DAILY [facility] Last Admin: 05/18/20 09:38 Dose: 40 mg Documented by: Zolpidem Tartrate (Ambien -) 5 mg PO HS PRN PRN Reason: INSOMNIA Last Admin: 05/18/20 23:10 Dose: 5 mg Documented by: - Objective Vital Signs: Vital Signs Temperature 98.4 F 05/19/20 01:00 Pulse Rate 84 05/19/20 01:00 Respiratory Rate 18 05/19/20 01:00 Blood Pressure 125/65 05/19/20 01:00 O2 Sat by Pulse Oximetry (%) 93 L 05/19/20 01:00 Constitutional: Yes: Calm Eyes: Yes: WNL HENT: Yes: WNL Neck: Yes: Supple Cardiovascular: Yes: JVD, S1, S2 Respiratory: Yes: Regular, Wheezes (bilateral expiratory) ...Rectal Exam: Yes: Deferred Genitourinary: No: Anuria Breast(s): Yes: WNL Musculoskeletal: Yes: Muscle Weakness Peripheral Pulses WNL: No Peripheral Pulses: Left Doralis Pedis: 1+, Right Dorsalis Pedis: 1+ Integumentary: Yes: Venous Stasis Changes, Other (left LE wound) Wound/Incision: Yes: Dressing Dry and Intact Neurological: Yes: Alert, Oriented, Weakness Psychiatric: Yes: WNL Labs: CBC, BMP 05/17/20 07:51 05/18/20 22:00 INR, PTT INR 1.20 (0.83-1.09) H 05/12/20 14:48 Abnormal Lab Results 05/18/20 05/18/20 12:44 22:00 BUN 66.7 H Creatinine 6.4 H Random Glucose 363 H > 500 H* Calcium 7.1 L - ....Imaging Chest X-ray: Image Reviewed EKG: Image Reviewed Assessment/Plan s/p CABG Acute/chronic CHF Poorly-controlled DM HTN PAD: non-healing wound. acute/chronic renal dysfunction COVID not detected x 2. Continue metoprolol and apixaban (hx atrial flutter-->ablation therapy 2018). For LE vascular workup; may require procedure for non-healing wound. Repeat EKG (prolonged QT 04/2020). ECHO for ventricular EF, valve status. CXR F/u BUN/Cr, Is and Os, daily weight, electrolytes. Diuretics per wildland firefighter. On antibiotics.
[2020-05-19] MEDS: ALBUTEROL SO4 2.5/IPRATROPIUM 0.5 INH SOL 3 ML VIAL.NEB. NEB SCH ×4 (07:40→20:20)
[2020-05-19 08:29] LABS: HEMATOCRIT 26.4 % (35.4-49); HEMOGLOBIN 8.4 GM/dL (11.7-16.9); MCH 27.6 pg (25.7-33.7); MCHC 31.9 g/dl (32.0-35.9); MEAN CELL VOLUME 86.5 fl (80-96); MEAN PLT VOLUME 9.8 fl (7.5-11.1); PLATELET COUNT 256 K/MM3 (134-434); RBC 3.06 M/mm3 (4.00-5.60); RDW 15.8 % (11.9-15.9); WHITE BLOOD COUNT 7.7 K/mm3 (4.0-10.0)
[2020-05-19 09:05] LABS: POTASSIUM 4.5 mmol/L (3.5-5.1)
[2020-05-19 09:19] LABS: CALCIUM 7.7 mg/dL (8.5-10.1); CREATININE 6.5 mg/dL (0.55-1.3); MAGNESIUM 2.3 mg/dL (1.8-2.4); PHOSPHOROUS 5.5 mg/dL (2.5-4.9)
[2020-05-19] MEDS ORDERED: PT OWN MED DRAWER 7, Y5N ONE (09:32)
[2020-05-19] MEDS: DULoxetine HCL 20 MG CAPSULE.DR PO SCH (09:33)
[2020-05-19] MEDS: GABAPENTIN 100 MG CAPSULE PO SCH ×2 (09:34→21:46)
[2020-05-19] MEDS: PANTOPRAZOLE 40 MG TABLET PO SCH (09:34)
[2020-05-19] MEDS: CALCIUM 500MG/VIT-D 200 UNITS COMBO TABLET (FP) PO SCH (09:34)
[2020-05-19] MEDS: amLODIPine BESYLATE 5 MG TABLET (FP) PO SCH (09:34)
[2020-05-19] MEDS: ASPIRIN COATED 81 MG TABLET.EC PO SCH (09:34)
[2020-05-19] MEDS: APIXABAN 2.5 MG TABLET PO SCH ×2 (09:34→21:46)
[2020-05-19] MEDS: metoPROLOL SUCCINATE 25 MG TAB.SR.24H (FP) PO SCH (09:35)
--- NOTE | 2020-05-19 10:34 | EKG ---
Test Reason : Blood Pressure : / mmHG Vent. Rate : 088 BPM Atrial Rate : 088 BPM P-R Int : 170 ms QRS Dur : 090 ms QT Int : 388 ms P-R-T Axes : 060 046 037 degrees QTc Int : 469 ms NORMAL SINUS RHYTHM NONSPECIFIC ST ABNORMALITY WHEN COMPARED WITH ECG OF 12-APR-2020 21:00, PREMATURE ATRIAL COMPLEXES ARE NO LONGER PRESENT Confirmed by AZAM MOLINA MD ([id number]) on 05/19/2020 10:34:37 AM Referred By: RONI HENDERSON Confirmed By:AZAM MOLINA MD
--- NOTE | 2020-05-19 11:47 | PN ---
Progress Note (short form) - Note Progress Note: PULMONARY Breathing improved Using nebulizer VSS/Afebrile Gen: less tachypneic Heart: RRR Lung: bilateral rhonchi, wheezes Abd: soft, nontender Ext: no edema Labs/meds/notes/images reviewed A/P Acute on Chronic Diastolic Heart Failure Acute on Chronic Renal Failure Cellulitis r/o Pneumonia CAD s/p CABG HTN DM PAD - continue lasix - monitor urine output, creatinine - O2 to keep SpO2 >90% - inhaled bronchodilators - continue antibiotics - monitor CXR - DVT prophylaxis Naty Sequeira MD
[2020-05-19] MEDS ORDERED: INSULIN (NOVOLOG) ASPART 100 UNITS/ML 10ML VIAL ONE (11:57)
--- NOTE | 2020-05-19 14:29 | ECHO ---
Version: 1 Name: KATHERINE RODRIGUEZ Exam: Adult Echocardiogram Study Date: 05/19/2020, 1:43 PM Age: 70 Years MMode/2D Measurements & Calculations IVSd: 1.36 cm LVIDs: 2.8 cm LVIDd: 5.1 cm LVPWd: 1.28 cm LAV (MOD-bp): 75.0 ml LVOT diam: 2.01 cm Ao root diam: 2.8 cm LA dimension: 4.6 cm Doppler Measurements & Calculations MV E max suraj: 151.0 cm/sec Med E/e': 30.8 MV A max suraj: 127.3 cm/sec Med Peak E' Suraj: 4.9 cm/sec MV E/A: 1.19 Lat E/e': 11.8 Lat Peak E' Suraj: 12.8 cm/sec Ao max P.0 mmHg Ao V2 max: 187.0 cm/sec TR max suraj: 252.4 cm/sec TR max P.5 mmHg Procedure The study was technically difficult with many images being suboptimal in quality. Left Ventricle There is moderate concentric left ventricular hypertrophy. Left ventricular systolic function is dee ssly normal. Ejection Fraction = 50-55%. Septal motion is consistent with conduction abnormality. Right Ventricle The right ventricle is normal in size and function. Atria The left atrium is moderately dilated. Right atrial size is normal. Mitral Valve There is mild to moderate mitral annular calcification. There is mild mitral valve thickening. There is no mitral valve stenosis. There is mild mitral regurgitation. Tricuspid Valve The tricuspid valve is normal in structure and function. There is mild tricuspid regurgitation. Aortic Valve There is mild aortic sclerosis.;. No hemodynamically significant valvular aortic stenosis. No aortic regurgitation is present. Pulmonic Valve The pulmonic valve is not well seen, but is grossly normal. There is no pulmonic valvular stenosis. Great Vessels The aortic root is normal size. Mildly dilated inferior vena cava. Pericardium/Pleura There is no pericardial effusion. Summary Statements The study was technically difficult with many images being suboptimal in quality. Left ventricular systolic function is grossly normal. Ejection Fraction = 50-55%. There is moderate concentric left ventricular hypertrophy. Septal motion is consistent with conduction abnormality. The left atrium is moderately dilated. There is mild to moderate mitral annular calcification. There is mild mitral valve thickening. There is mild mitral regurgitation. There is mild tricuspid regurgitation. There is mild aortic sclerosis.; There is no pericardial effusion. Mildly dilated inferior vena cava MD Perkins *Francescone 05/19/2020, 2:29 PM Ordering Physician: Mauri Davis Performed By: Kavya Nash
--- NOTE | 2020-05-19 14:44 | PN ---
Progress Note (short form) - Note Progress Note: 1. CKD stage 5 not yet on dialysis 2. LE wound 3. Cellulitis of the lower extremity 4. Hypertension 5. DM 6. Chronic anemia Active Medications Albuterol Sulfate (Ventolin 0.083% Nebulizer Soln -) 1 amp NEB Q4H PRN PRN Reason: SHORT OF BREATH/WHEEZING Albuterol/Ipratropium (Duoneb -) 1 amp NEB RQID [facility] Last Admin: 05/19/20 11:33 Dose: 1 amp Documented by: Amlodipine Besylate (Norvasc -) 5 mg PO DAILY [facility] Last Admin: 05/19/20 09:34 Dose: 5 mg Documented by: Apixaban (Eliquis -) 2.5 mg PO BID [facility] Last Admin: 05/19/20 09:34 Dose: 2.5 mg Documented by: Aspirin (Ecotrin -) 81 mg PO DAILY [facility] Last Admin: 05/19/20 09:34 Dose: 81 mg Documented by: Atorvastatin Calcium (Lipitor -) 20 mg PO HS [facility] Last Admin: 05/18/20 22:15 Dose: 20 mg Documented by: Calcium Carbonate/Cholecalciferol (Os-Osvaldo 500+D -) 1 tab PO DAILY [facility] Last Admin: 05/19/20 09:34 Dose: 1 tab Documented by: Duloxetine HCl (Cymbalta -) 40 mg PO DAILY [facility] Last Admin: 05/19/20 09:33 Dose: 40 mg Documented by: Furosemide (Lasix Injection -) 80 mg IVPB BID@0600,1400 [facility] Last Admin: 05/19/20 06:19 Dose: 80 mg Documented by: Gabapentin (Neurontin -) 100 mg PO BID [facility] Last Admin: 05/19/20 09:34 Dose: 100 mg Documented by: Piperacillin Sod/Tazobactam (Sod 2.25 gm/ Dextrose) 50 mls @ 100 mls/hr IVPB Q8H-IV [facility]; Protocol Last Admin: 05/19/20 09:35 Dose: 100 mls/hr Documented by: Insulin Aspart (Novolog Vial Sliding Scale -) 1 vial SQ ACHS [facility]; Protocol Last Admin: 05/19/20 12:07 Dose: 12 units Documented by: Metoprolol Succinate (Toprol Xl -) 25 mg PO DAILY [facility] Last Admin: 05/19/20 09:35 Dose: 25 mg Documented by: Pantoprazole Sodium (Protonix -) 40 mg PO DAILY [facility] Last Admin: 05/19/20 09:34 Dose: 40 mg Documented by: Zolpidem Tartrate (Ambien -) 5 mg PO HS PRN PRN Reason: INSOMNIA Last Admin: 05/18/20 23:10 Dose: 5 mg Documented by: Last Vital Signs Temp Pulse Resp BP Pulse Ox 98.0 F 95 H 18 120/64 92 L 05/19/20 14:03 05/19/20 14:03 05/19/20 14:03 05/19/20 14:03 05/19/20 14:03 CBC, BMP 05/19/20 08:00 05/19/20 08:00 anemia amanda- no uremic sx metabolic acidosis Plan- monitor labs
--- NOTE | 2020-05-19 15:34 | PN ---
Progress Note, Physician History of Present Illness: Mr. Red is a 69 year old white male with PMHx of CKD stage 5, hypertension, DM (insulin pump), PVD, CAD s/p CABG 2016 (no hx [place]), PAD-->LLE stent 2017 (Dr. Carolyn Garcia), CVA ("three TIAs", with residual mild left-sided weakness), diastolic CHF, s/p atrial "flutter"-->ablation Rx 2018 at [facility] (now on metoprolol and apixaban), anemia, elevated TNI since at least 2017, obesity (s/p gastric bypass surgery; weighed 285 lbs before the surgery), who was sent in from the wound care clinic with LE (dorsum of left foot) wound and found to have suspected cellulitis. He says he was told he would "need surgery". (He says he has been walking regularly, and that the wound does not impede this. Seen and examined at the bedside. Pt follows with Dr. Shy Brown as an outpatient for CKD, was last seen May 03. He offers no acute complaints at this time. No SOB, CP, fever, chills, N/V/D, flank pain, dysuria or frequency. Making urine. No leg swelling. PMD: Dr. Joaquín Adam Production Material Handler: Dr. James, [facility] Surgical Hx: spinal disk replacement kidney stone removal/stent CABG 2015 bariatric surgery 04/19 [facility] (R) 12/22 EPS: ablation of atrial flutter 06/21 berto LE laser vein surgery - Current Medication List Current Medications: Active Medications Albuterol Sulfate (Ventolin 0.083% Nebulizer Soln -) 1 amp NEB Q4H PRN PRN Reason: SHORT OF BREATH/WHEEZING Albuterol/Ipratropium (Duoneb -) 1 amp NEB RQID [facility] Last Admin: 05/19/20 11:33 Dose: 1 amp Documented by: Amlodipine Besylate (Norvasc -) 5 mg PO DAILY [facility] Last Admin: 05/19/20 09:34 Dose: 5 mg Documented by: Apixaban (Eliquis -) 2.5 mg PO BID [facility] Last Admin: 05/19/20 09:34 Dose: 2.5 mg Documented by: Aspirin (Ecotrin -) 81 mg PO DAILY [facility] Last Admin: 05/19/20 09:34 Dose: 81 mg Documented by: Atorvastatin Calcium (Lipitor -) 20 mg PO HS [facility] Last Admin: 05/18/20 22:15 Dose: 20 mg Documented by: Calcium Carbonate/Cholecalciferol (Os-Osvaldo 500+D -) 1 tab PO DAILY [facility] Last Admin: 05/19/20 09:34 Dose: 1 tab Documented by: Duloxetine HCl (Cymbalta -) 40 mg PO DAILY [facility] Last Admin: 05/19/20 09:33 Dose: 40 mg Documented by: Furosemide (Lasix Injection -) 80 mg IVPB BID@0600,1400 [facility] Last Admin: 05/19/20 06:19 Dose: 80 mg Documented by: Gabapentin (Neurontin -) 100 mg PO BID [facility] Last Admin: 05/19/20 09:34 Dose: 100 mg Documented by: Piperacillin Sod/Tazobactam (Sod 2.25 gm/ Dextrose) 50 mls @ 100 mls/hr IVPB Q8H-IV [facility]; Protocol Last Admin: 05/19/20 09:35 Dose: 100 mls/hr Documented by: Insulin Aspart (Novolog Vial Sliding Scale -) 1 vial SQ ACHS [facility]; Protocol Last Admin: 05/19/20 12:07 Dose: 12 units Documented by: Metoprolol Succinate (Toprol Xl -) 25 mg PO DAILY [facility] Last Admin: 05/19/20 09:35 Dose: 25 mg Documented by: Pantoprazole Sodium (Protonix -) 40 mg PO DAILY [facility] Last Admin: 05/19/20 09:34 Dose: 40 mg Documented by: Zolpidem Tartrate (Ambien -) 5 mg PO HS PRN PRN Reason: INSOMNIA Last Admin: 05/18/20 23:10 Dose: 5 mg Documented by: - Objective Vital Signs: Vital Signs Temperature 98.0 F 05/19/20 14:03 Pulse Rate 95 H 05/19/20 14:03 Respiratory Rate 18 05/19/20 14:03 Blood Pressure 120/64 05/19/20 14:03 O2 Sat by Pulse Oximetry (%) 92 L 05/19/20 14:03 Eyes: Yes: WNL, Conjunctiva Clear, EOM Intact HENT: Yes: WNL, Atraumatic, Normocephalic Neck: Yes: WNL, Supple, Trachea Midline Cardiovascular: Yes: WNL, Regular Rate and Rhythm Respiratory: Yes: WNL, Regular, CTA Bilaterally Gastrointestinal: Yes: WNL, Normal Bowel Sounds Genitourinary: Yes: WNL Musculoskeletal: Yes: WNL Extremities: Yes: WNL Edema: No Integumentary: Yes: WNL Neurological: Yes: WNL, Alert, Oriented ...Motor Strength: WNL Psychiatric: Yes: WNL Labs: CBC, BMP 05/19/20 08:00 05/19/20 08:00 INR, PTT INR 1.20 (0.83-1.09) H 05/12/20 14:48 Assessment/Plan Assessment/Plan s/p CABG Acute/chronic CHF Poorly-controlled DM HTN PAD: non-healing wound. acute/chronic renal dysfunction COVID not detected x 2. Continue metoprolol and apixaban (hx atrial flutter-->ablation therapy 2018). For LE vascular workup; may require procedure for non-healing wound. Repeat EKG (prolonged QT 04/2020). ECHO for ventricular EF, valve status. CXR F/u BUN/Cr, Is and Os, daily weight, electrolytes. Diuretics per telephone mechanic. On antibiotics.
--- NOTE | 2020-05-19 16:07 | PN ---
Progress Note, Physician History of Present Illness: Pt is alert, without distress. 92% O2 sat on 4L NC. Afebrile. Denies LE pain. - Current Medication List Current Medications: Active Medications Albuterol Sulfate (Ventolin 0.083% Nebulizer Soln -) 1 amp NEB Q4H PRN PRN Reason: SHORT OF BREATH/WHEEZING Albuterol/Ipratropium (Duoneb -) 1 amp NEB RQID [facility] Last Admin: 05/19/20 11:33 Dose: 1 amp Documented by: Amlodipine Besylate (Norvasc -) 5 mg PO DAILY [facility] Last Admin: 05/19/20 09:34 Dose: 5 mg Documented by: Apixaban (Eliquis -) 2.5 mg PO BID [facility] Last Admin: 05/19/20 09:34 Dose: 2.5 mg Documented by: Aspirin (Ecotrin -) 81 mg PO DAILY [facility] Last Admin: 05/19/20 09:34 Dose: 81 mg Documented by: Atorvastatin Calcium (Lipitor -) 20 mg PO HS [facility] Last Admin: 05/18/20 22:15 Dose: 20 mg Documented by: Calcium Carbonate/Cholecalciferol (Os-Osvaldo 500+D -) 1 tab PO DAILY [facility] Last Admin: 05/19/20 09:34 Dose: 1 tab Documented by: Duloxetine HCl (Cymbalta -) 40 mg PO DAILY [facility] Last Admin: 05/19/20 09:33 Dose: 40 mg Documented by: Furosemide (Lasix Injection -) 80 mg IVPB BID@0600,1400 [facility] Last Admin: 05/19/20 14:55 Dose: 80 mg Documented by: Gabapentin (Neurontin -) 100 mg PO BID [facility] Last Admin: 05/19/20 09:34 Dose: 100 mg Documented by: Piperacillin Sod/Tazobactam (Sod 2.25 gm/ Dextrose) 50 mls @ 100 mls/hr IVPB Q8H-IV [facility]; Protocol Last Admin: 05/19/20 09:35 Dose: 100 mls/hr Documented by: Insulin Aspart (Novolog Vial Sliding Scale -) 1 vial SQ ACHS [facility]; Protocol Last Admin: 05/19/20 12:07 Dose: 12 units Documented by: Metoprolol Succinate (Toprol Xl -) 25 mg PO DAILY [facility] Last Admin: 05/19/20 09:35 Dose: 25 mg Documented by: Pantoprazole Sodium (Protonix -) 40 mg PO DAILY [facility] Last Admin: 05/19/20 09:34 Dose: 40 mg Documented by: Zolpidem Tartrate (Ambien -) 5 mg PO HS PRN PRN Reason: INSOMNIA Last Admin: 05/18/20 23:10 Dose: 5 mg Documented by: - Objective Vital Signs: Vital Signs Temperature 98.0 F 05/19/20 14:03 Pulse Rate 95 H 05/19/20 14:03 Respiratory Rate 18 05/19/20 14:03 Blood Pressure 120/64 05/19/20 14:03 O2 Sat by Pulse Oximetry (%) 92 L 05/19/20 14:03 Constitutional: Yes: No Distress, Calm Cardiovascular: Yes: Regular Rate and Rhythm Respiratory: Yes: Diminished Gastrointestinal: Yes: Normal Bowel Sounds, Soft, Abdomen, Obese Wound/Incision: Yes: Dressing Dry and Intact Neurological: Yes: Alert Labs: CBC, BMP 05/19/20 08:00 05/19/20 08:00 INR, PTT INR 1.20 (0.83-1.09) H 05/12/20 14:48 Laboratory Last Values WBC 7.7 K/mm3 (4.0-10.0) 05/19/20 08:00 RBC 3.06 M/mm3 (4.00-5.60) L 05/19/20 08:00 Hgb 8.4 GM/dL (11.7-16.9) L 05/19/20 08:00 Hct 26.4 % (35.4-49) L 05/19/20 08:00 MCV 86.5 fl (80-96) 05/19/20 08:00 MCH 27.6 pg (25.7-33.7) 05/19/20 08:00 MCHC 31.9 g/dl (32.0-35.9) L 05/19/20 08:00 RDW 15.8 % (11.9-15.9) 05/19/20 08:00 Plt Count 256 K/MM3 (134-434) D 05/19/20 08:00 MPV 9.8 fl (7.5-11.1) 05/19/20 08:00 Absolute Neuts (auto) 5.9 K/mm3 (1.5-8.0) 05/17/20 07:51 Neutrophils % 75.7 % (42.8-82.8) 05/17/20 07:51 Lymphocytes % 9.5 % (8-40) D 05/17/20 07:51 Monocytes % 10.3 % (3.8-10.2) H 05/17/20 07:51 Eosinophils % 3.9 % (0-4.5) 05/17/20 07:51 Basophils % 0.6 % (0-2.0) 05/17/20 07:51 Nucleated RBC % 0 % (0-0) 05/17/20 07:51 ESR 105 mm/hr (0-20) H 05/12/20 14:48 PT with INR 14.20 SEC (9.7-13.0) H 05/12/20 14:48 INR 1.20 (0.83-1.09) H 05/12/20 14:48 Sodium 137 mmol/L (136-145) 05/19/20 08:00 Potassium 4.5 mmol/L (3.5-5.1) 05/19/20 08:00 Chloride 104 mmol/L (98-107) 05/19/20 08:00 Carbon Dioxide 20 mmol/L (21-32) L 05/19/20 08:00 Anion Gap 13 MMOL/L (8-16) 05/19/20 08:00 BUN 76.0 mg/dL (7-18) H 05/19/20 08:00 Creatinine 6.5 mg/dL (0.55-1.3) H 05/19/20 08:00 Est GFR (CKD-EPI)AfAm 9.09 05/19/20 08:00 Est GFR (CKD-EPI)NonAf 7.84 05/19/20 08:00 POC Glucometer 562 UNITS (80-120) 05/19/20 11:42 Random Glucose 395 mg/dL (74-106) H 05/19/20 08:00 Lactic Acid 1.8 mmol/L (0.4-2.0) 05/12/20 14:48 Calcium 7.7 mg/dL (8.5-10.1) L 05/19/20 08:00 Phosphorus 5.5 mg/dL (2.5-4.9) H 05/19/20 08:00 Magnesium 2.3 mg/dL (1.8-2.4) 05/19/20 08:00 Iron 12 ug/dL (50-175) L 05/14/20 07:38 TIBC 189 ug/dL (250-450) L 05/14/20 07:38 Iron Saturation 6 % (17.5-39) L 05/14/20 07:38 Unsaturated IBC 177 ug/dL (200-275) L 05/14/20 07:38 Ferritin 63.6 ng/ml (8-388) 05/14/20 07:38 Total Bilirubin 0.4 mg/dL (0.2-1) 05/17/20 06:00 AST 14 U/L (15-37) L 05/17/20 06:00 ALT 21 U/L (13-61) 05/17/20 06:00 Alkaline Phosphatase 70 U/L (45-117) 05/17/20 06:00 C-Reactive Protein 1.6 MG/DL (0.00-0.3) H 05/12/20 14:48 Total Protein 5.6 g/dl (6.4-8.2) L 05/17/20 06:00 Albumin 1.8 g/dl (3.4-5.0) L 05/17/20 06:00 Urine Color Yellow 05/12/20 18:45 Urine Appearance Clear 05/12/20 18:45 Urine pH 6.0 (5.0-8.0) 05/12/20 18:45 Ur Specific [place] 1.015 (1.010-1.035) 05/12/20 18:45 Urine Protein 3+ (NEGATIVE) H 05/12/20 18:45 Urine Glucose (UA) 3+ (NEGATIVE) H 05/12/20 18:45 Urine Ketones Negative (NEGATIVE) 05/12/20 18:45 Urine Blood 1+ (NEGATIVE) H 05/12/20 18:45 Urine Nitrite Negative (NEGATIVE) 05/12/20 18:45 Urine Bilirubin Negative (NEGATIVE) 05/12/20 18:45 Urine Urobilinogen 0.2 mg/dL (0.2-1.0) 05/12/20 18:45 Ur Leukocyte Esterase Negative (NEGATIVE) 05/12/20 18:45 Urine WBC (Auto) 9 /uL (0-25.8) 05/12/20 18:45 Urine RBC (Auto) 20 /uL (0-23.9) 05/12/20 18:45 Urine Casts (Auto) 1 /uL (0-3.1) 05/12/20 18:45 U Epithel Cells (Auto) 6 /uL (0-25.1) 05/12/20 18:45 Urine Bacteria (Auto) 10 /uL (0-1359) 05/12/20 18:45 Random Vancomycin 11.2 ug/ml (5-26) 05/14/20 07:38 COVID-19 (PRISCILLA) Not detected (Not Detected) 05/17/20 06:00 Blood Type A POSITIVE 05/12/20 14:48 Antibody Screen Negative 05/12/20 14:48 Microbiology 05/12/20 14:48 Blood - Peripheral Venous Blood Culture - Final NO GROWTH AFTER 5 DAYS INCUBATION 05/12/20 14:48 Blood - Peripheral Venous Blood Culture - Final NO GROWTH AFTER 5 DAYS INCUBATION 05/12/20 14:48 Foot - Left Gram Stain - Final 05/12/20 14:48 Foot - Left Wound Culture - Final Enterobacter Cloacae Enterococcus Casseliflavus Enterococcus Faecalis Staphylococcus Coagulase Neg - ....Imaging MRI: Report Reviewed Problem List - Problems (1) Acute congestive heart failure Code(s): I50.9 - HEART FAILURE, UNSPECIFIED (2) Atrial fibrillation Code(s): I48.91 - UNSPECIFIED ATRIAL FIBRILLATION (3) Diabetic ulcer of left foot Code(s): E11.621 - TYPE 2 DIABETES MELLITUS WITH FOOT ULCER; L97.529 - NON- PRESSURE CHRONIC ULCER OTH PRT LEFT FOOT W UNSP SEVERITY Qualifiers: Diabetic foot ulcer location: unspecified part of foot Diabetes mellitus type: type 2 Non-pressure ulcer stage: unspecified non-pressure ulcer stage Qualified Code(s): E11.621 - Type 2 diabetes mellitus with foot ulcer; L97.529 - Non-pressure chronic ulcer of other part of left foot with unspecified severity (4) Shortness of breath Code(s): R06.02 - SHORTNESS OF BREATH (5) Acute on chronic renal failure Code(s): N17.9 - ACUTE KIDNEY FAILURE, UNSPECIFIED; N18.9 - CHRONIC KIDNEY DISEASE, UNSPECIFIED (6) Diabetic foot infection Code(s): E11.628 - TYPE 2 DIABETES MELLITUS WITH OTHER SKIN COMPLICATIONS; L08.9 - LOCAL INFECTION OF THE SKIN AND SUBCUTANEOUS TISSUE, UNSP (7) Diabetic neuropathy Code(s): E11.40 - TYPE 2 DIABETES MELLITUS WITH DIABETIC NEUROPATHY, UNSP (8) Hx of CABG Code(s): Z95.1 - PRESENCE OF AORTOCORONARY BYPASS GRAFT (9) PAD (peripheral artery disease) Code(s): I73.9 - PERIPHERAL VASCULAR DISEASE, UNSPECIFIED (10) CAD (coronary artery disease) Code(s): I25.10 - ATHSCL HEART DISEASE OF [place] CORONARY ARTERY W/O ANG PCTRS Qualifiers: Coronary Disease-Associated Artery/Lesion type: [place] artery [place] vs. transplanted heart: [place] heart Associated angina: without angina Qualified Code(s): I25.10 - Atherosclerotic heart disease of [place] coronary artery without angina pectoris (11) Hyperlipidemia Code(s): E78.5 - HYPERLIPIDEMIA, UNSPECIFIED Qualifiers: Hyperlipidemia type: pure hypercholesterolemia Qualified Code(s): E78.00 - Pure hypercholesterolemia, unspecified; E78.0 - Pure hypercholesterolemia (12) Hypertension Code(s): I10 - ESSENTIAL (PRIMARY) HYPERTENSION Qualifiers: Hypertension type: essential hypertension Qualified Code(s): I10 - Essential (primary) hypertension Assessment/Plan Lt foot cellulitis ? PNA Acute resp failure Acute on Chronic renal failure Acute on Chronic HF Uncontrolled DM with neuropathy Anemia CAD AFIB s/p CVA Obesity BOBY -- MRI without evidence of OM, LE cellulitis improving -- plan to d/c antibiotics tomorrow -- continue wound care -- monitor vitals, O2 supplementation
--- NOTE | 2020-05-19 21:26 | PN ---
Progress Note, Physician History of Present Illness: No new complaints - Current Medication List Current Medications: Active Medications Albuterol Sulfate (Ventolin 0.083% Nebulizer Soln -) 1 amp NEB Q4H PRN PRN Reason: SHORT OF BREATH/WHEEZING Albuterol/Ipratropium (Duoneb -) 1 amp NEB RQID [facility] Last Admin: 05/19/20 20:20 Dose: 1 amp Documented by: Amlodipine Besylate (Norvasc -) 5 mg PO DAILY [facility] Last Admin: 05/19/20 09:34 Dose: 5 mg Documented by: Apixaban (Eliquis -) 2.5 mg PO BID [facility] Last Admin: 05/19/20 09:34 Dose: 2.5 mg Documented by: Aspirin (Ecotrin -) 81 mg PO DAILY [facility] Last Admin: 05/19/20 09:34 Dose: 81 mg Documented by: Atorvastatin Calcium (Lipitor -) 20 mg PO HS [facility] Last Admin: 05/18/20 22:15 Dose: 20 mg Documented by: Calcium Carbonate/Cholecalciferol (Os-Osvaldo 500+D -) 1 tab PO DAILY [facility] Last Admin: 05/19/20 09:34 Dose: 1 tab Documented by: Duloxetine HCl (Cymbalta -) 40 mg PO DAILY [facility] Last Admin: 05/19/20 09:33 Dose: 40 mg Documented by: Furosemide (Lasix Injection -) 80 mg IVPB BID@0600,1400 [facility] Last Admin: 05/19/20 14:55 Dose: 80 mg Documented by: Gabapentin (Neurontin -) 100 mg PO BID [facility] Last Admin: 05/19/20 09:34 Dose: 100 mg Documented by: Piperacillin Sod/Tazobactam (Sod 2.25 gm/ Dextrose) 50 mls @ 100 mls/hr IVPB Q8H-IV [facility]; Protocol Last Admin: 05/19/20 17:27 Dose: 100 mls/hr Documented by: Insulin Aspart (Novolog Vial Sliding Scale -) 1 vial SQ ACHS [facility]; Protocol Last Admin: 05/19/20 17:26 Dose: 12 units Documented by: Metoprolol Succinate (Toprol Xl -) 25 mg PO DAILY [facility] Last Admin: 05/19/20 09:35 Dose: 25 mg Documented by: Pantoprazole Sodium (Protonix -) 40 mg PO DAILY [facility] Last Admin: 05/19/20 09:34 Dose: 40 mg Documented by: Zolpidem Tartrate (Ambien -) 5 mg PO HS PRN PRN Reason: INSOMNIA Last Admin: 05/18/20 23:10 Dose: 5 mg Documented by: - Objective Vital Signs: Vital Signs Temperature 98.0 F 05/19/20 14:03 Pulse Rate 95 H 05/19/20 14:03 Respiratory Rate 18 05/19/20 14:03 Blood Pressure 120/64 05/19/20 14:03 O2 Sat by Pulse Oximetry (%) 92 L 05/19/20 14:03 Cardiovascular: Yes: WNL, Regular Rate and Rhythm Respiratory: Yes: Diminished Gastrointestinal: Yes: WNL, Normal Bowel Sounds, Soft Extremities: Yes: Other (Lt foot in dressing) Labs: CBC, BMP 05/19/20 08:00 05/19/20 08:00 INR, PTT INR 1.20 (0.83-1.09) H 05/12/20 14:48 Problem List - Problems (1) Pneumonia Assessment/Plan: Cont IV zosyn CXR 05/18/20 showed RUL infiltrate and ?LLL infiltrate w/ congestive changes Repeat COVID testing was negative Code(s): J18.9 - PNEUMONIA, UNSPECIFIED ORGANISM (2) CHF (congestive heart failure) Assessment/Plan: Pt given IV lasix CXR shows worsening congestion Monitor electrolytes Code(s): I50.9 - HEART FAILURE, UNSPECIFIED (3) Diabetic ulcer of left foot Assessment/Plan: Cont IV Zosyn Wound culture (+) for enterobacter/Grp D strept MRI did not show any osteo but ?foreign body lt foot As per ID/vascular surgery Code(s): E11.621 - TYPE 2 DIABETES MELLITUS WITH FOOT ULCER; L97.529 - NON- PRESSURE CHRONIC ULCER OTH PRT LEFT FOOT W UNSP SEVERITY Qualifiers: Diabetic foot ulcer location: unspecified part of foot Diabetes mellitus type: type 2 Non-pressure ulcer stage: unspecified non-pressure ulcer stage Qualified Code(s): E11.621 - Type 2 diabetes mellitus with foot ulcer; L97.529 - Non-pressure chronic ulcer of other part of left foot with unspecified severity (4) Acute on chronic renal failure Assessment/Plan: As per renal no dialysis at this time Cont to monitor Monitor BUN/creatinine Code(s): N17.9 - ACUTE KIDNEY FAILURE, UNSPECIFIED; N18.9 - CHRONIC KIDNEY DISEASE, UNSPECIFIED (5) Atrial fibrillation Assessment/Plan: renal dosing of eliquis Rate controlled Code(s): I48.91 - UNSPECIFIED ATRIAL FIBRILLATION (6) Diabetic neuropathy Code(s): E11.40 - TYPE 2 DIABETES MELLITUS WITH DIABETIC NEUROPATHY, UNSP (7) Hx of CABG Code(s): Z95.1 - PRESENCE OF AORTOCORONARY BYPASS GRAFT (8) PAD (peripheral artery disease) Code(s): I73.9 - PERIPHERAL VASCULAR DISEASE, UNSPECIFIED (9) CAD (coronary artery disease) Code(s): I25.10 - ATHSCL HEART DISEASE OF [place] CORONARY ARTERY W/O ANG PCTRS Qualifiers: Coronary Disease-Associated Artery/Lesion type: [place] artery [place] vs. transplanted heart: [place] heart Associated angina: without angina Qualified Code(s): I25.10 - Atherosclerotic heart disease of [place] coronary artery without angina pectoris (10) Diabetes mellitus Assessment/Plan: Cont sliding scale w/ coverage Levemir added due to uncontrolled diabetes Endo consult Code(s): E11.9 - TYPE 2 DIABETES MELLITUS WITHOUT COMPLICATIONS Qualifiers: Diabetes mellitus type: type 2 Diabetes mellitus nursing home insulin use: without bed bug exterminator use Diabetes mellitus complication status: with circulatory complication Diabetes mellitus complication detail: with peripheral angiopathy without gangrene Qualified Code(s): E11.51 - Type 2 diabetes mellitus with diabetic peripheral angiopathy without gangrene (11) Hyperlipidemia Code(s): E78.5 - HYPERLIPIDEMIA, UNSPECIFIED Qualifiers: Hyperlipidemia type: pure hypercholesterolemia Qualified Code(s): E78.00 - Pure hypercholesterolemia, unspecified; E78.0 - Pure hypercholesterolemia (12) Hypertension Code(s): I10 - ESSENTIAL (PRIMARY) HYPERTENSION Qualifiers: Hypertension type: essential hypertension Qualified Code(s): I10 - Essenti al (primary) hypertension
[2020-05-19] MEDS: INSULIN (LEVEMIR) 100 UNITS/ML UNITS SQ SCH (21:44)
[2020-05-19] MEDS: ZOLPIDEM TARTRATE 5 MG TABLET PO PRN (21:46)
[2020-05-19] MEDS: ATORVASTATIN CA 20 MG TABLET (FP) PO SCH (21:46)
[2020-05-20] MEDS ORDERED: DEXTROSE 5%-WATER - 50 ML IVPB ONE ×3 (02:20→16:40)
[2020-05-20] MEDS ORDERED: PIPERACILLIN/TAZOBACTAM 2.25 GM VIAL IVPB ONE ×3 (02:20→16:40)
[2020-05-20] MEDS: PIPERACILLIN/TAZOB 2.25 GM 2.25 GM in DEXTROSE 5%-WATER - 50 ML IVPB SCH ×3 (02:54→17:35)
[2020-05-20] MEDS: FUROSEMIDE 40 MG/4 ML INJECTABLE VIAL IVPB SCH ×2 (05:32→14:43)
[2020-05-20] MEDS: INSULIN SLIDING SCALE (NOVOLOG) 1 VIAL SQ SCH ×4 (06:11→21:09)
[2020-05-20] MEDS ORDERED: PT OWN MED DRAWER 7, Y5N ONE (06:20)
[2020-05-20] MEDS: ALBUTEROL SO4 2.5/IPRATROPIUM 0.5 INH SOL 3 ML VIAL.NEB. NEB SCH ×4 (07:32→21:25)
[2020-05-20] MEDS: metoPROLOL SUCCINATE 25 MG TAB.SR.24H (FP) PO SCH (10:52)
[2020-05-20] MEDS: GABAPENTIN 100 MG CAPSULE PO SCH ×2 (10:52→21:07)
[2020-05-20] MEDS: amLODIPine BESYLATE 5 MG TABLET (FP) PO SCH (10:52)
[2020-05-20] MEDS: DULoxetine HCL 20 MG CAPSULE.DR PO SCH (10:52)
[2020-05-20] MEDS: APIXABAN 2.5 MG TABLET PO SCH ×2 (10:52→21:07)
[2020-05-20] MEDS: CALCIUM 500MG/VIT-D 200 UNITS COMBO TABLET (FP) PO SCH (10:52)
[2020-05-20] MEDS: ASPIRIN COATED 81 MG TABLET.EC PO SCH (10:52)
[2020-05-20] MEDS: PANTOPRAZOLE 40 MG TABLET PO SCH (10:52)
[2020-05-20] MEDS: guaiFENesin 200 MG/10 ML 10 ML UNIT-DOSE CUPS PO PRN ×3 (11:56→21:13)
--- NOTE | 2020-05-20 14:23 | PN ---
Progress Note (short form) - Note Progress Note: Still with congested cough and RUIZ. No acute events overnight. Requesting a cough suppressant. Intake & Output 05/17/20 05/18/20 05/19/20 05/20/20 23:59 23:59 23:59 23:59 Intake Total 1190 1190 974 650 Output Total 500 650 550 450 Balance 690 540 424 200 Weight 209 lb 210 lb 193 lb 4.8 oz 198 lb 2 oz Last Vital Signs Temp Pulse Resp BP Pulse Ox 98.1 F 81 18 137/76 94 L 05/20/20 14:14 05/20/20 14:14 05/20/20 14:14 05/20/20 14:14 05/20/20 14:14 Active Medications Albuterol Sulfate (Ventolin 0.083% Nebulizer Soln -) 1 amp NEB Q4H PRN PRN Reason: SHORT OF BREATH/WHEEZING Albuterol/Ipratropium (Duoneb -) 1 amp NEB RQID [facility] Last Admin: 05/20/20 11:41 Dose: 1 amp Documented by: Amlodipine Besylate (Norvasc -) 5 mg PO DAILY [facility] Last Admin: 05/20/20 10:52 Dose: 5 mg Documented by: Apixaban (Eliquis -) 2.5 mg PO BID [facility] Last Admin: 05/20/20 10:52 Dose: 2.5 mg Documented by: Aspirin (Ecotrin -) 81 mg PO DAILY [facility] Last Admin: 05/20/20 10:52 Dose: 81 mg Documented by: Atorvastatin Calcium (Lipitor -) 20 mg PO HS [facility] Last Admin: 05/19/20 21:46 Dose: 20 mg Documented by: Calcium Carbonate/Cholecalciferol (Os-Osvaldo 500+D -) 1 tab PO DAILY [facility] Last Admin: 05/20/20 10:52 Dose: 1 tab Documented by: Duloxetine HCl (Cymbalta -) 40 mg PO DAILY [facility] Last Admin: 05/20/20 10:52 Dose: 40 mg Documented by: Furosemide (Lasix Injection -) 80 mg IVPB BID@0600,1400 [facility] Last Admin: 05/20/20 05:32 Dose: 80 mg Documented by: Gabapentin (Neurontin -) 100 mg PO BID [facility] Last Admin: 05/20/20 10:52 Dose: 100 mg Documented by: Guaifenesin (Robitussin -) 10 ml PO Q4H PRN PRN Reason: COUGH Last Admin: 05/20/20 11:56 Dose: 10 ml Documented by: Piperacillin Sod/Tazobactam (Sod 2.25 gm/ Dextrose) 50 mls @ 100 mls/hr IVPB Q8H-IV [facility]; Protocol Last Admin: 05/20/20 10:52 Dose: 100 mls/hr Documented by: Insulin Aspart (Novolog Vial Sliding Scale -) 1 vial SQ ACHS [facility]; Protocol Last Admin: 05/20/20 11:55 Dose: 10 units Documented by: Insulin Detemir (Levemir Vial) 10 units SQ HS [facility] Last Admin: 05/19/20 21:44 Dose: 20 unit Documented by: Metoprolol Succinate (Toprol Xl -) 25 mg PO DAILY [facility] Last Admin: 05/20/20 10:52 Dose: 25 mg Documented by: Pantoprazole Sodium (Protonix -) 40 mg PO DAILY [facility] Last Admin: 05/20/20 10:52 Dose: 40 mg Documented by: Zolpidem Tartrate (Ambien -) 5 mg PO HS PRN PRN Reason: INSOMNIA Last Admin: 05/19/20 21:46 Dose: 5 mg Documented by: Gen: less tachypneic Heart: RRR Lung: bilateral rhonchi, wheezes Abd: soft, nontender Ext: no edema Laboratory Results - last 24 hr 05/19/20 05/19/20 05/20/20 17:16 21:29 05:29 POC Glucometer 584 530 380 05/20/20 11:21 POC Glucometer 358 A/P Acute on Chronic Diastolic Heart Failure Acute on Chronic Renal Failure Cellulitis r/o Pneumonia CAD s/p CABG HTN DM PAD - Cough suppressant - Lasix - monitor urine output, creatinine - O2 to keep SpO2 >90% - inhaled bronchodilators - Medrol - continue antibiotics - DVT prophylaxis Dr Gibbs
--- NOTE | 2020-05-20 14:37 | PN ---
Progress Note (short form) - Note Progress Note: 1. CKD stage 5 not yet on dialysis 2. LE wound 3. Cellulitis of the lower extremity 4. Hypertension 5. DM 6. Chronic anemia Active Medications Albuterol Sulfate (Ventolin 0.083% Nebulizer Soln -) 1 amp NEB Q4H PRN PRN Reason: SHORT OF BREATH/WHEEZING Albuterol/Ipratropium (Duoneb -) 1 amp NEB RQID [facility] Last Admin: 05/20/20 11:41 Dose: 1 amp Documented by: Amlodipine Besylate (Norvasc -) 5 mg PO DAILY [facility] Last Admin: 05/20/20 10:52 Dose: 5 mg Documented by: Apixaban (Eliquis -) 2.5 mg PO BID [facility] Last Admin: 05/20/20 10:52 Dose: 2.5 mg Documented by: Aspirin (Ecotrin -) 81 mg PO DAILY [facility] Last Admin: 05/20/20 10:52 Dose: 81 mg Documented by: Atorvastatin Calcium (Lipitor -) 20 mg PO HS [facility] Last Admin: 05/19/20 21:46 Dose: 20 mg Documented by: Calcium Carbonate/Cholecalciferol (Os-Osvaldo 500+D -) 1 tab PO DAILY [facility] Last Admin: 05/20/20 10:52 Dose: 1 tab Documented by: Duloxetine HCl (Cymbalta -) 40 mg PO DAILY [facility] Last Admin: 05/20/20 10:52 Dose: 40 mg Documented by: Furosemide (Lasix Injection -) 80 mg IVPB BID@0600,1400 [facility] Last Admin: 05/20/20 05:32 Dose: 80 mg Documented by: Gabapentin (Neurontin -) 100 mg PO BID [facility] Last Admin: 05/20/20 10:52 Dose: 100 mg Documented by: Guaifenesin (Robitussin -) 10 ml PO Q4H PRN PRN Reason: COUGH Last Admin: 05/20/20 11:56 Dose: 10 ml Documented by: Piperacillin Sod/Tazobactam (Sod 2.25 gm/ Dextrose) 50 mls @ 100 mls/hr IVPB Q8H-IV [facility]; Protocol Last Admin: 05/20/20 10:52 Dose: 100 mls/hr Documented by: Insulin Aspart (Novolog Vial Sliding Scale -) 1 vial SQ ACHS [facility]; Protocol Last Admin: 05/20/20 11:55 Dose: 10 units Documented by: Insulin Detemir (Levemir Vial) 10 units SQ HS [facility] Last Admin: 05/19/20 21:44 Dose: 20 unit Documented by: Methylprednisolone Sodium Succinate (Solu-Medrol -) 40 mg IVPUSH Q8H-IV [facility] Metoprolol Succinate (Toprol Xl -) 25 mg PO DAILY [facility] Last Admin: 05/20/20 10:52 Dose: 25 mg Documented by: Pantoprazole Sodium (Protonix -) 40 mg PO DAILY [facility] Last Admin: 05/20/20 10:52 Dose: 40 mg Documented by: Zolpidem Tartrate (Ambien -) 5 mg PO HS PRN PRN Reason: INSOMNIA Last Admin: 05/19/20 21:46 Dose: 5 mg Documented by: Last Vital Signs Temp Pulse Resp BP Pulse Ox 98.1 F 81 18 137/76 94 L 05/20/20 14:14 05/20/20 14:14 05/20/20 14:14 05/20/20 14:14 05/20/20 14:14 CBC, BMP 05/19/20 08:00 05/19/20 08:00 CBC, BMP 05/19/20 08:00 05/19/20 08:00 anemia amanda- no uremic sx metabolic acidosis Plan- monitor labs
[2020-05-20] MEDS: methylPREDNISolone NA SUCC 40 MG/1 ML VIAL IVPUSH SCH ×2 (14:43→17:35)
[2020-05-20 17:03] LABS: POTASSIUM 4.2 mmol/L (3.5-5.1)
[2020-05-20 17:15] LABS: ALBUMIN 1.9 g/dl (3.4-5.0); BILIRUBIN,TOTAL 0.3 mg/dL (0.2-1); BLOOD UREA NITROGEN 91.2 mg/dL (7-18); CALCIUM 7.5 mg/dL (8.5-10.1); CREATININE 6.9 mg/dL (0.55-1.3); TOT PROT 5.9 g/dl (6.4-8.2)
--- NOTE | 2020-05-20 20:38 | PN ---
Progress Note, Physician History of Present Illness: Pt complains of constipation - Current Medication List Current Medications: Active Medications Albuterol Sulfate (Ventolin 0.083% Nebulizer Soln -) 1 amp NEB Q4H PRN PRN Reason: SHORT OF BREATH/WHEEZING Albuterol/Ipratropium (Duoneb -) 1 amp NEB RQID [facility] Last Admin: 05/20/20 16:43 Dose: 1 amp Documented by: Amlodipine Besylate (Norvasc -) 5 mg PO DAILY [facility] Last Admin: 05/20/20 10:52 Dose: 5 mg Documented by: Apixaban (Eliquis -) 2.5 mg PO BID [facility] Last Admin: 05/20/20 10:52 Dose: 2.5 mg Documented by: Aspirin (Ecotrin -) 81 mg PO DAILY [facility] Last Admin: 05/20/20 10:52 Dose: 81 mg Documented by: Atorvastatin Calcium (Lipitor -) 20 mg PO [facility] Last Admin: 05/19/20 21:46 Dose: 20 mg Documented by: Calcium Carbonate/Cholecalciferol (Os-Osvaldo 500+D -) 1 tab PO DAILY [facility] Last Admin: 05/20/20 10:52 Dose: 1 tab Documented by: Duloxetine HCl (Cymbalta -) 40 mg PO DAILY [facility] Last Admin: 05/20/20 10:52 Dose: 40 mg Documented by: Furosemide (Lasix Injection -) 80 mg IVPB BID@0600,1400 [facility] Last Admin: 05/20/20 14:43 Dose: 80 mg Documented by: Gabapentin (Neurontin -) 100 mg PO BID [facility] Last Admin: 05/20/20 10:52 Dose: 100 mg Documented by: Guaifenesin (Robitussin -) 10 ml PO Q4H PRN PRN Reason: COUGH Last Admin: 05/20/20 16:52 Dose: 10 ml Documented by: Piperacillin Sod/Tazobactam (Sod 2.25 gm/ Dextrose) 50 mls @ 100 mls/hr IVPB Q8H-IV [facility]; Protocol Last Admin: 05/20/20 17:35 Dose: 100 mls/hr Documented by: Insulin Aspart (Novolog Vial Sliding Scale -) 1 vial SQ [facility]; Protocol Last Admin: 05/20/20 16:52 Dose: 10 units Documented by: Insulin Detemir (Levemir Vial) 10 units SQ [facility] Last Admin: 05/19/20 21:44 Dose: 20 unit Documented by: Methylprednisolone Sodium Succinate (Solu-Medrol -) 40 mg IVPUSH Q8H-IV [facility] Last Admin: 05/20/20 17:35 Dose: 40 mg Documented by: Metoprolol Succinate (Toprol Xl -) 25 mg PO DAILY [facility] Last Admin: 05/20/20 10:52 Dose: 25 mg Documented by: Pantoprazole Sodium (Protonix -) 40 mg PO DAILY [facility] Last Admin: 05/20/20 10:52 Dose: 40 mg Documented by: Zolpidem Tartrate (Ambien -) 5 mg PO HS PRN PRN Reason: INSOMNIA Last Admin: 05/19/20 21:46 Dose: 5 mg Documented by: - Objective Vital Signs: Vital Signs Temperature 99.0 F 05/20/20 19:47 Pulse Rate 81 05/20/20 19:47 Respiratory Rate 18 05/20/20 14:14 Blood Pressure 126/70 05/20/20 19:47 O2 Sat by Pulse Oximetry (%) 94 L 05/20/20 14:14 Neck: Yes: WNL, Supple Cardiovascular: Yes: WNL, Regular Rate and Rhythm Respiratory: Yes: Diminished Gastrointestinal: Yes: WNL, Normal Bowel Sounds, Soft, Abdomen, Obese Extremities: Yes: Other (Lt foot ulcer) Labs: CBC, BMP 05/19/20 08:00 05/20/20 14:15 INR, PTT INR 1.20 (0.83-1.09) H 05/12/20 14:48 Problem List - Problems (1) Pneumonia Assessment/Plan: Cont IV zosyn CXR 05/18/20 showed RUL infiltrate and ?LLL infiltrate w/ congestive changes Repeat COVID testing was negative Code(s): J18.9 - PNEUMONIA, UNSPECIFIED ORGANISM (2) CHF (congestive heart failure) Assessment/Plan: Pt given IV lasix CXR shows worsening congestion Monitor electrolytes Code(s): I50.9 - HEART FAILURE, UNSPECIFIED (3) Diabetic ulcer of left foot Assessment/Plan: Cont IV Zosyn Wound culture (+) for enterobacter/Grp D strept MRI did not show any osteo but ?foreign body lt foot Will check xray of Lt foot As per ID/vascular surgery Code(s): E11.621 - TYPE 2 DIABETES MELLITUS WITH FOOT ULCER; L97.529 - NON- PRESSURE CHRONIC ULCER OTH PRT LEFT FOOT W UNSP SEVERITY Qualifiers: Diabetic foot ulcer location: unspecified part of foot Diabetes mellitus type: type 2 Non-pressure ulcer stage: unspecified non-pressure ulcer stage Qualified Code(s): E11.621 - Type 2 diabetes mellitus with foot ulcer; L97.529 - Non-pressure chronic ulcer of other part of left foot with unspecified severity (4) Acute on chronic renal failure Assessment/Plan: As per renal no dialysis at this time Cont to monitor Monitor BUN/creatinine Code(s): N17.9 - ACUTE KIDNEY FAILURE, UNSPECIFIED; N18.9 - CHRONIC KIDNEY DISEASE, UNSPECIFIED (5) Atrial fibrillation Assessment/Plan: renal dosing of eliquis Rate controlled Code(s): I48.91 - UNSPECIFIED ATRIAL FIBRILLATION (6) Diabetic neuropathy Code(s): E11.40 - TYPE 2 DIABETES MELLITUS WITH DIABETIC NEUROPATHY, UNSP (7) Hx of CABG Code(s): Z95.1 - PRESENCE OF AORTOCORONARY BYPASS GRAFT (8) PAD (peripheral artery disease) Code(s): I73.9 - PERIPHERAL VASCULAR DISEASE, UNSPECIFIED (9) CAD (coronary artery disease) Code(s): I25.10 - ATHSCL HEART DISEASE OF [place] CORONARY ARTERY W/O ANG PCTRS Qualifiers: Coronary Disease-Associated Artery/Lesion type: [place] artery Circle vs. transplanted heart: [place] heart Associated angina: without angina Qualified Code(s): I25.10 - Atherosclerotic heart disease of [place] coronary artery with out angina pectoris (10) Diabetes mellitus Assessment/Plan: Cont sliding scale w/ coverage Levemir added due to uncontrolled diabetes Endo consult Code(s): E11.9 - TYPE 2 DIABETES MELLITUS WITHOUT COMPLICATIONS Qualifiers: Diabetes mellitus type: type 2 Diabetes mellitus terminal carman insulin use: without terminal carman use Diabetes mellitus complication status: with circulatory complication Diabetes mellitus complication detail: with peripheral angiopathy without gangrene Qualified Code(s): E11.51 - Type 2 diabetes mellitus with diabetic peripheral angiopathy without gangrene (11) Hyperlipidemia Code(s): E78.5 - HYPERLIPIDEMIA, UNSPECIFIED Qualifiers: Hyperlipidemia type: pure hypercholesterolemia Qualified Code(s): E78.00 - Pure hypercholesterolemia, unspecified; E78.0 - Pure hypercholesterolemia (12) Hypertension Code(s): I10 - ESSENTIAL (PRIMARY) HYPERTENSION Qualifiers: Hypertension type: essential hypertension Qualified Code(s): I10 - Essential (primary) hypertension
[2020-05-20] MEDS: ATORVASTATIN CA 20 MG TABLET (FP) PO SCH (21:07)
[2020-05-20] MEDS: INSULIN (LEVEMIR) 100 UNITS/ML UNITS SQ SCH (21:07)
[2020-05-20] MEDS: ZOLPIDEM TARTRATE 5 MG TABLET PO PRN (21:07)
--- NOTE | 2020-05-20 21:34 | PN ---
Progress Note, Physician History of Present Illness: Pt without LE pain, erythema improving. No change in respiratory status. Afebrile. Still c/o difficulty hearing. - Current Medication List Current Medications: Active Medications Albuterol Sulfate (Ventolin 0.083% Nebulizer Soln -) 1 amp NEB Q4H PRN PRN Reason: SHORT OF BREATH/WHEEZING Albuterol/Ipratropium (Duoneb -) 1 amp NEB RQID [facility] Last Admin: 05/20/20 16:43 Dose: 1 amp Documented by: Amlodipine Besylate (Norvasc -) 5 mg PO DAILY [facility] Last Admin: 05/20/20 10:52 Dose: 5 mg Documented by: Apixaban (Eliquis -) 2.5 mg PO BID [facility] Last Admin: 05/20/20 21:07 Dose: 2.5 mg Documented by: Aspirin (Ecotrin -) 81 mg PO DAILY [facility] Last Admin: 05/20/20 10:52 Dose: 81 mg Documented by: Atorvastatin Calcium (Lipitor -) 20 mg PO HS [facility] Last Admin: 05/20/20 21:07 Dose: 20 mg Documented by: Calcium Carbonate/Cholecalciferol (Os-Osvaldo 500+D -) 1 tab PO DAILY [facility] Last Admin: 05/20/20 10:52 Dose: 1 tab Documented by: Duloxetine HCl (Cymbalta -) 40 mg PO DAILY [facility] Last Admin: 05/20/20 10:52 Dose: 40 mg Documented by: Furosemide (Lasix Injection -) 80 mg IVPB BID@0600,1400 [facility] Last Admin: 05/20/20 14:43 Dose: 80 mg Documented by: Gabapentin (Neurontin -) 100 mg PO BID [facility] Last Admin: 05/20/20 21:07 Dose: 100 mg Documented by: Guaifenesin (Robitussin -) 10 ml PO Q4H PRN PRN Reason: COUGH Last Admin: 05/20/20 21:13 Dose: 10 ml Documented by: Piperacillin Sod/Tazobactam (Sod 2.25 gm/ Dextrose) 50 mls @ 100 mls/hr IVPB Q8H-IV [facility]; Protocol Last Admin: 05/20/20 17:35 Dose: 100 mls/hr Documented by: Insulin Aspart (Novolog Vial Sliding Scale -) 1 vial SQ ACHS [facility]; Protocol Last Admin: 05/20/20 21:09 Dose: 12 units Documented by: Insulin Detemir (Levemir Vial) 10 units SQ HS [facility] Last Admin: 05/20/20 21:07 Dose: 10 unit Documented by: Methylprednisolone Sodium Succinate (Solu-Medrol -) 40 mg IVPUSH Q8H-IV [facility] Last Admin: 05/20/20 17:35 Dose: 40 mg Documented by: Metoprolol Succinate (Toprol Xl -) 25 mg PO DAILY [facility] Last Admin: 05/20/20 10:52 Dose: 25 mg Documented by: Pantoprazole Sodium (Protonix -) 40 mg PO DAILY [facility] Last Admin: 05/20/20 10:52 Dose: 40 mg Documented by: Zolpidem Tartrate (Ambien -) 5 mg PO HS PRN PRN Reason: INSOMNIA Last Admin: 05/20/20 21:07 Dose: 5 mg Documented by: - Objective Vital Signs: Vital Signs Temperature 99.0 F 05/20/20 19:47 Pulse Rate 81 05/20/20 19:47 Respiratory Rate 18 05/20/20 14:14 Blood Pressure 126/70 05/20/20 19:47 O2 Sat by Pulse Oximetry (%) 94 L 05/20/20 14:14 Constitutional: Yes: No Distress, Calm Cardiovascular: Yes: Regular Rate and Rhythm Respiratory: Yes: Diminished, On Nasal O2 Gastrointestinal: Yes: Normal Bowel Sounds, Soft Integumentary: Yes: WNL Wound/Incision: Yes: Dressing Dry and Intact Neurological: Yes: Alert Labs: CBC, BMP 05/19/20 08:00 05/20/20 14:15 INR, PTT INR 1.20 (0.83-1.09) H 05/12/20 14:48 Problem List - Problems (1) Acute congestive heart failure Code(s): I50.9 - HEART FAILURE, UNSPECIFIED (2) Atrial fibrillation Code(s): I48.91 - UNSPECIFIED ATRIAL FIBRILLATION (3) Diabetic ulcer of left foot Code(s): E11.621 - TYPE 2 DIABETES MELLITUS WITH FOOT ULCER; L97.529 - NON- PRESSURE CHRONIC ULCER OTH PRT LEFT FOOT W UNSP SEVERITY Qualifiers: Qualified Code(s): E11.621 - Type 2 diabetes mellitus with foot ulcer; L97.529 - Non-pressure chronic ulcer of other part of left foot with unspecified severity (4) Shortness of breath Code(s): R06.02 - SHORTNESS OF BREATH (5) Acute on chronic renal failure Code(s): N17.9 - ACUTE KIDNEY FAILURE, UNSPECIFIED; N18.9 - CHRONIC KIDNEY DISEASE, UNSPECIFIED (6) Diabetic foot infection Code(s): E11.628 - TYPE 2 DIABETES MELLITUS WITH OTHER SKIN COMPLICATIONS; L08.9 - LOCAL INFECTION OF THE SKIN AND SUBCUTANEOUS TISSUE, UNSP (7) Diabetic neuropathy Code(s): E11.40 - TYPE 2 DIABETES MELLITUS WITH DIABETIC NEUROPATHY, UNSP (8) Hx of CABG Code(s): Z95.1 - PRESENCE OF AORTOCORONARY BYPASS GRAFT (9) PAD (peripheral artery disease) Code(s): I73.9 - PERIPHERAL VASCULAR DISEASE, UNSPECIFIED (10) CAD (coronary artery disease) Code(s): I25.10 - ATHSCL HEART DISEASE OF [place] CORONARY ARTERY W/O ANG PCTRS Qualifiers: Qualified Code(s): I25.10 - Atherosclerotic heart disease of [place] coronary artery without angina pectoris (11) Hyperlipidemia Code(s): E78.5 - HYPERLIPIDEMIA, UNSPECIFIED Qualifiers: Qualified Code(s): E78.00 - Pure hypercholesterolemia, unspecified; E78.0 - Pure hypercholesterolemia (12) Hypertension Code(s): I10 - ESSENTIAL (PRIMARY) HYPERTENSION Qualifiers: Qualified Code(s): I10 - Essential (primary) hypertension Assessment/Plan Lt foot cellulitis - improved ? Otitis media - Eustachian tube dysfunction ? PNA Acute resp failure Acute on Chronic renal failure Acute on Chronic HF Uncontrolled DM with neuropathy Anemia CAD AFIB s/p CVA Obesity BOBY -- LLE erythema resolved -- c/o clogged ears/decreased hearing. ENT note reviewed - needs outpt follow up. d/c Zosyn, switch to Augmentin 250 mg po BID x 3 days -- continue wound care -- monitor vitals, O2 supplementation
--- NOTE | 2020-05-21 00:30 | CONSULT ---
Consult Consult Specialty:: endocrine Referred by:: dr.rocco morgan Reason for Consultation:: dmt2/neuropathy - History of Present Illness Chief Complaint: high sugars History of Present Illness: 70ym[age],pmh DM,diabetic neuropathy, HTN, CAD, BOBY, CKD, HLD, diastolic CHF, atrial flutter, CVA, PAD, and morbid obesit followed by Dr Garcia (wound care) for chronic left lateral mal ulcer with overlying cellulitis. Pt states that he has had the ulcer which has not improved with hyperbarics for 2 months. Pt states bs have been elevated,despite less appetite and diet control admitted for uncontrolled dm and wound infection. 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 Cardio/Vascular: Yes: CAD, HTN, Other Renal/: Yes: Renal Failure, Renal Inusuff Infectious Disease: Yes: MRSA (Lt finger abscess) Endocrine: Yes: Diabetes Mellitus Dermatology: Yes: Cellulitis - Past Surgical History Past Surgical History: Yes: Bariatric Surgery, CABG, Carotid Endarterectomy - Alcohol/Substance Use Hx Alcohol Use: No History of Substance Use: reports: None - Smoking History Smoking history: Unknown if ever smoked Have you smoked in the past 12 months: No If you are a former smoker, when did you quit?: 25 years ago - Social History ADL: Independent History of Recent Travel: No Home Medications - Allergies Allergies/Adverse Reactions: Allergies Allergy/AdvReac Type Severity Reaction Status Date / Time levofloxacin [From Levaquin] Allergy Intermediate Verified 05/12/20 14:16 morphine Allergy Intermediate Vomiting Verified 05/12/20 14:16 codeine AdvReac Verified 05/12/20 14:16 egg AdvReac Vomiting Verified 05/12/20 14:16 egg yolk AdvReac Vomiting Verified 05/12/20 14:16 - Home Medications Home Medications: Ambulatory Orders Aspirin Coated [Ecotrin -] 81 mg PO DAILY 11/18/17 Zolpidem Tartrate [Ambien] 10 mg PO HS 01/06/18 Duloxetine HCl 40 mg PO DAILY 07/20/19 Pregabalin [Lyrica -] 50 mg PO BID [facility] 2 07/20/19 Apixaban [Eliquis -] 5 mg PO BID 12/24/19 Gabapentin [Neurontin -] 100 mg PO BID 04/12/20 Insulin Aspart [Novolog] 0 unit SQ [facility] 04/12/20 Amlodipine Besylate [Norvasc -] 5 mg PO DAILY #30 tablet 04/18/20 Atorvastatin Ca [Lipitor] 20 mg PO HS #30 tablet 04/18/20 Calcium 500Mg/Vit-D 200 Units [Os-Osvaldo 500+D -] 1 tab PO DAILY #30 tab 04/18/20 Collagenase Clostridium Hist. [Santyl -] 1 applic TP DAILY #1 tube 04/18/20 Metoprolol Succinate [Toprol XL -] 25 mg PO DAILY #30 tab.sr.24h 04/18/20 Pantoprazole Sodium [Protonix -] 40 mg PO DAILY #30 tablet.ec 04/18/20 Review of Systems - Review of Systems Constitutional: reports: Lethargy Eyes: reports: Blurred Vision HENT: reports: No Symptoms Neck: reports: No Symptoms Respiratory: reports: Exercise Intolerance Gastrointestinal: reports: Bloating, Constipation Genitourinary: reports: No Symptoms Integumentary: reports: Incision, Lesions, Pruritis, Wound Neurological: reports: Numbness Physical Exam Vital Signs: Vital Signs Temperature 99.0 F 05/20/20 19:47 Pulse Rate 81 05/20/20 19:47 Respiratory Rate 18 05/20/20 14:14 Blood Pressure 126/70 05/20/20 19:47 O2 Sat by Pulse Oximetry (%) 94 L 05/20/20 14:14 Labs: CBC, BMP 05/19/20 08:00 05/20/20 14:15 Problem List - Problems (1) Acute congestive heart failure Code(s): I50.9 - HEART FAILURE, UNSPECIFIED (2) Atrial fibrillation Code(s): I48.91 - UNSPECIFIED ATRIAL FIBRILLATION (3) Diabetic ulcer of left foot Code(s): E11.621 - TYPE 2 DIABETES MELLITUS WITH FOOT ULCER; L97.529 - NON- PRESSURE CHRONIC ULCER OTH PRT LEFT FOOT W UNSP SEVERITY Qualifiers: Diabetic foot ulcer location: unspecified part of foot Diabetes mellitus type: type 2 Non-pressure ulcer stage: unspecified non-pressure ulcer stage Qualified Code(s): E11.621 - Type 2 diabetes mellitus with foot ulcer; L97.529 - Non-pressure chronic ulcer of other part of left foot with unspecified severity (4) Ear congestion Code(s): H93.8X9 - OTHER SPECIFIED DISORDERS OF EAR, UNSPECIFIED EAR Qualifiers: Laterality: bilateral Qualified Code(s): H93.8X3 - Other specified disorders of ear, bilateral (5) Foot ulcer Code(s): L97.509 - NON-PRESSURE CHRONIC ULCER OTH PRT UNSP FOOT W UNSP SEVERITY (6) Pneumonia Code(s): J18.9 - PNEUMONIA, UNSPECIFIED ORGANISM (7) Shortness of breath Code(s): R06.02 - SHORTNESS OF BREATH Assessment/Plan Current Active Problems Acute congestive heart failure (Acute) Atrial fibrillation (Acute) Diabetic ulcer of left foot (Acute) Ear congestion (Acute) Foot ulcer (Acute) Pneumonia (Acute) Shortness of breath (Acute) Laboratory Results - last 24 hr 05/20/20 05/20/20 05/20/20 05:29 11:21 14:15 Sodium 137 Potassium 4.2 Chloride 101 Carbon Dioxide 22 Anion Gap 14 BUN 91.2 H Creatinine 6.9 H Est GFR (CKD-EPI)AfAm 8.46 Est GFR (CKD-EPI)NonAf 7.30 POC Glucometer 380 358 Random Glucose 362 H Calcium 7.5 L Total Bilirubin 0.3 AST 14 L ALT 21 Alkaline Phosphatase 67 Total Protein 5.9 L Albumin 1.9 L 05/20/20 05/20/20 16:45 21:06 Sodium Potassium Chloride Carbon Dioxide Anion Gap BUN Creatinine Est GFR (CKD-EPI)AfAm Est GFR (CKD-EPI)NonAf POC Glucometer 359 476 Random Glucose Calcium Total Bilirubin AST ALT Alkaline Phosphatase Total Protein Albumin plan: levemir 20 units bid novolog achs scale dose titrate diet and cgms as outpatient
[2020-05-21] MEDS: methylPREDNISolone NA SUCC 40 MG/1 ML VIAL IVPUSH SCH ×4 (02:00→21:15)
[2020-05-21] MEDS: guaiFENesin 200 MG/10 ML 10 ML UNIT-DOSE CUPS PO PRN ×4 (02:00→21:17)
[2020-05-21] MEDS: FUROSEMIDE 40 MG/4 ML INJECTABLE VIAL IVPB SCH ×2 (06:18→14:04)
[2020-05-21] MEDS: INSULIN SLIDING SCALE (NOVOLOG) 1 VIAL SQ SCH ×4 (06:18→21:14)
[2020-05-21] MEDS: ALBUTEROL SO4 2.5/IPRATROPIUM 0.5 INH SOL 3 ML VIAL.NEB. NEB SCH ×4 (07:20→20:51)
[2020-05-21] MEDS: AMOX TR/POT CLAV 250MG/125MG TABLETS PO SCH ×2 (08:38→17:04)
[2020-05-21 09:01] LABS: BASO % 0.2 % (0-2.0); EOS % 0.1 % (0-4.5); HEMATOCRIT 23.9 % (35.4-49); HEMOGLOBIN 7.6 GM/dL (11.7-16.9); MCHC 31.8 g/dl (32.0-35.9); MEAN CELL VOLUME 84.9 fl (80-96); MEAN PLT VOLUME 9.5 fl (7.5-11.1); MONO % 0.7 % (3.8-10.2); PLATELET COUNT 306 K/MM3 (134-434); RBC 2.82 M/mm3 (4.00-5.60); RDW 15.7 % (11.9-15.9); WHITE BLOOD COUNT 8.8 K/mm3 (4.0-10.0)
[2020-05-21 09:26] LABS: BILIRUBIN,TOTAL 0.5 mg/dL (0.2-1); CALCIUM 7.5 mg/dL (8.5-10.1); CREATININE 6.9 mg/dL (0.55-1.3); POTASSIUM 4.7 mmol/L (3.5-5.1)
[2020-05-21 09:47] LABS: ANISOCYTOSIS 2+; MACROCYTOSIS 0; PLATELET ESTIMATE NORMAL
[2020-05-21] MEDS: GABAPENTIN 100 MG CAPSULE PO SCH ×2 (10:19→21:12)
[2020-05-21] MEDS: DULoxetine HCL 20 MG CAPSULE.DR PO SCH (10:19)
[2020-05-21] MEDS: APIXABAN 2.5 MG TABLET PO SCH ×2 (10:19→21:12)
[2020-05-21] MEDS: metoPROLOL SUCCINATE 25 MG TAB.SR.24H (FP) PO SCH (10:19)
[2020-05-21] MEDS: CALCIUM 500MG/VIT-D 200 UNITS COMBO TABLET (FP) PO SCH (10:19)
[2020-05-21] MEDS: ASPIRIN COATED 81 MG TABLET.EC PO SCH (10:19)
[2020-05-21] MEDS: amLODIPine BESYLATE 5 MG TABLET (FP) PO SCH (10:20)
[2020-05-21] MEDS: INSULIN (LEVEMIR) 100 UNITS/ML UNITS SQ SCH ×2 (10:20→21:13)
[2020-05-21] MEDS: PANTOPRAZOLE 40 MG TABLET PO SCH (10:20)
[2020-05-21] MEDS ORDERED: INSULIN (NOVOLOG) ASPART 100 UNITS/ML 10ML VIAL ONE ×3 (11:37→21:06)
--- NOTE | 2020-05-21 13:41 | PN ---
Progress Note (short form) - Note Progress Note: 1. CKD stage 5 not yet on dialysis 2. LE wound 3. Cellulitis of the lower extremity 4. Hypertension 5. DM 6. Chronic anemia Active Medications Albuterol Sulfate (Ventolin 0.083% Nebulizer Soln -) 1 amp NEB Q4H PRN PRN Reason: SHORT OF BREATH/WHEEZING Albuterol/Ipratropium (Duoneb -) 1 amp NEB RQID [facility] Last Admin: 05/21/20 11:40 Dose: 1 amp Documented by: Amlodipine Besylate (Norvasc -) 5 mg PO DAILY [facility] Last Admin: 05/21/20 10:20 Dose: 5 mg Documented by: Amoxicillin/Clavulanate Potassium (Augmentin - 250mg Tablet) 1 tab PO BID@0800,1730 [facility] Last Admin: 05/21/20 08:38 Dose: 1 tab Documented by: Apixaban (Eliquis -) 2.5 mg PO BID [facility] Last Admin: 05/21/20 10:19 Dose: 2.5 mg Documented by: Aspirin (Ecotrin -) 81 mg PO DAILY [facility] Last Admin: 05/21/20 10:19 Dose: 81 mg Documented by: Atorvastatin Calcium (Lipitor -) 20 mg PO HS [facility] Last Admin: 05/20/20 21:07 Dose: 20 mg Documented by: Calcium Carbonate/Cholecalciferol (Os-Osvaldo 500+D -) 1 tab PO DAILY [facility] Last Admin: 05/21/20 10:19 Dose: 1 tab Documented by: Duloxetine HCl (Cymbalta -) 40 mg PO DAILY [facility] Last Admin: 05/21/20 10:19 Dose: 40 mg Documented by: Furosemide (Lasix Injection -) 80 mg IVPB BID@0600,1400 [facility] Last Admin: 05/21/20 06:18 Dose: 80 mg Documented by: Gabapentin (Neurontin -) 100 mg PO BID [facility] Last Admin: 05/21/20 10:19 Dose: 100 mg Documented by: Guaifenesin (Robitussin -) 10 ml PO Q4H PRN PRN Reason: COUGH Last Admin: 05/21/20 06:17 Dose: 10 ml Documented by: Insulin Aspart (Novolog Vial Sliding Scale -) 1 vial SQ ACHS [facility]; Protocol Last Admin: 05/21/20 11:40 Dose: 15 units Documented by: Insulin Detemir (Levemir Vial) 20 units SQ BID [facility] Last Admin: 05/21/20 10:20 Dose: 20 units Documented by: Methylprednisolone Sodium Succinate (Solu-Medrol -) 40 mg IVPUSH Q8H-IV [facility] Last Admin: 05/21/20 10:20 Dose: 40 mg Documented by: Metoprolol Succinate (Toprol Xl -) 25 mg PO DAILY [facility] Last Admin: 05/21/20 10:19 Dose: 25 mg Documented by: Pantoprazole Sodium (Protonix -) 40 mg PO DAILY [facility] Last Admin: 05/21/20 10:20 Dose: 40 mg Documented by: Zolpidem Tartrate (Ambien -) 5 mg PO HS PRN PRN Reason: INSOMNIA Last Admin: 05/20/20 21:07 Dose: 5 mg Documented by: Last Vital Signs Temp Pulse Resp BP Pulse Ox 98.4 F 73 20 118/56 L 95 05/21/20 06:00 05/21/20 11:00 05/21/20 10:00 05/21/20 10:00 05/21/20 11:00 CBC, [facility] 05/21/20 07:10 05/21/20 07:10 CBC, [facility] 05/19/20 08:00 05/19/20 08:00 CBC, [facility] 05/19/20 08:00 05/19/20 08:00 anemia amanda- no uremic sx metabolic acidosis Plan- monitor labs
--- NOTE | 2020-05-21 13:54 | PN ---
Progress Note (short form) - Note Progress Note: Still with congested cough and RUIZ but better than yesterday. No acute events overnight. Requesting an expectorant. Intake & Output 05/18/20 05/19/20 05/20/20 05/21/20 23:59 23:59 23:59 23:59 Intake Total 7732 338 7727 Output Total 164 791 4115 400 Balance 540 424 580 -400 Weight 210 lb 193 lb 4.8 oz 198 lb 2 oz 204 lb 2 oz Last Vital Signs Temp Pulse Resp BP Pulse Ox 98.4 F 73 20 118/56 L 95 05/21/20 06:00 05/21/20 11:00 05/21/20 10:00 05/21/20 10:00 05/21/20 11:00 Active Medications Albuterol Sulfate (Ventolin 0.083% Nebulizer Soln -) 1 amp NEB Q4H PRN PRN Reason: SHORT OF BREATH/WHEEZING Albuterol/Ipratropium (Duoneb -) 1 amp NEB RQID [facility] Last Admin: 05/21/20 11:40 Dose: 1 amp Documented by: Amlodipine Besylate (Norvasc -) 5 mg PO DAILY [facility] Last Admin: 05/21/20 10:20 Dose: 5 mg Documented by: Amoxicillin/Clavulanate Potassium (Augmentin - 250mg Tablet) 1 tab PO BID@0800,1730 [facility] Last Admin: 05/21/20 08:38 Dose: 1 tab Documented by: Apixaban (Eliquis -) 2.5 mg PO BID [facility] Last Admin: 05/21/20 10:19 Dose: 2.5 mg Documented by: Aspirin (Ecotrin -) 81 mg PO DAILY [facility] Last Admin: 05/21/20 10:19 Dose: 81 mg Documented by: Atorvastatin Calcium (Lipitor -) 20 mg PO [facility] Last Admin: 05/20/20 21:07 Dose: 20 mg Documented by: Calcium Carbonate/Cholecalciferol (Os-Osvaldo 500+D -) 1 tab PO DAILY [facility] Last Admin: 05/21/20 10:19 Dose: 1 tab Documented by: Duloxetine HCl (Cymbalta -) 40 mg PO DAILY [facility] Last Admin: 05/21/20 10:19 Dose: 40 mg Documented by: Furosemide (Lasix Injection -) 80 mg IVPB BID@0600,1400 [facility] Last Admin: 05/21/20 06:18 Dose: 80 mg Documented by: Gabapentin (Neurontin -) 100 mg PO BID [facility] Last Admin: 05/21/20 10:19 Dose: 100 mg Documented by: Guaifenesin (Robitussin -) 10 ml PO Q4H PRN PRN Reason: COUGH Last Admin: 05/21/20 06:17 Dose: 10 ml Documented by: Insulin Aspart (Novolog Vial Sliding Scale -) 1 vial SQ ACHS [facility]; Protocol Last Admin: 05/21/20 11:40 Dose: 15 units Documented by: Insulin Detemir (Levemir Vial) 20 units SQ BID [facility] Last Admin: 05/21/20 10:20 Dose: 20 units Documented by: Methylprednisolone Sodium Succinate (Solu-Medrol -) 40 mg IVPUSH Q8H-IV [facility] Last Admin: 05/21/20 10:20 Dose: 40 mg Documented by: Metoprolol Succinate (Toprol Xl -) 25 mg PO DAILY [facility] Last Admin: 05/21/20 10:19 Dose: 25 mg Documented by: Pantoprazole Sodium (Protonix -) 40 mg PO DAILY [facility] Last Admin: 05/21/20 10:20 Dose: 40 mg Documented by: Zolpidem Tartrate (Ambien -) 5 mg PO HS PRN PRN Reason: INSOMNIA Last Admin: 05/20/20 21:07 Dose: 5 mg Documented by: Gen: less tachypneic Heart: RRR Lung: bilateral rhonchi, Less wheezes Abd: soft, nontender Ext: no edema Laboratory Results - last 24 hr 05/20/20 05/20/20 05/20/20 14:15 16:45 21:06 WBC RBC Hgb Hct MCV MCH MCHC RDW Plt Count MPV Absolute Neuts (auto) Neutrophils % Neutrophils % (Manual) Band Neutrophils % Lymphocytes % Lymphocytes % (Manual) Monocytes % Monocytes % (Manual) Eosinophils % Eosinophils % (Manual) Basophils % Basophils % (Manual) Myelocytes % (Man) Promyelocytes % (Man) Blast Cells % (Manual) Nucleated RBC % Metamyelocytes Hypochromia Platelet Estimate Polychromasia Poikilocytosis Anisocytosis Microcytosis Macrocytosis Sodium 137 Potassium 4.2 Chloride 101 Carbon Dioxide 22 Anion Gap 14 BUN 91.2 H Creatinine 6.9 H Est GFR (CKD-EPI)AfAm 8.46 Est GFR (CKD-EPI)NonAf 7.30 POC Glucometer 359 476 Random Glucose 362 H Calcium 7.5 L Total Bilirubin 0.3 AST 14 L ALT 21 Alkaline Phosphatase 67 Total Protein 5.9 L Albumin 1.9 L 05/21/20 05/21/20 05/21/20 05:42 07:10 07:10 WBC 8.8 RBC 2.82 L Hgb 7.6 L Hct 23.9 L MCV 84.9 MCH 27.0 MCHC 31.8 L RDW 15.7 Plt Count 306 MPV 9.5 Absolute Neuts (auto) 8.4 H Neutrophils % 96.0 H D Neutrophils % (Manual) 93.0 H Band Neutrophils % 0.0 Lymphocytes % 3.0 L D Lymphocytes % (Manual) 6.0 L Monocytes % 0.7 L D Monocytes % (Manual) 1 L Eosinophils % 0.1 D Eosinophils % (Manual) 0.0 Basophils % 0.2 Basophils % (Manual) 0.0 Myelocytes % (Man) 0 Promyelocytes % (Man) 0 Blast Cells % (Manual) 0 Nucleated RBC % 0 Metamyelocytes 0 Hypochromia 0 Platelet Estimate Normal Polychromasia 2+ Poikilocytosis 0 Anisocytosis 2+ Microcytosis 2+ Macrocytosis 0 Sodium 135 L Potassium 4.7 Chloride 100 Carbon Dioxide 23 Anion Gap 12 BUN 98.0 H Creatinine 6.9 H Est GFR (CKD-EPI)AfAm 8.46 Est GFR (CKD-EPI)NonAf 7.30 POC Glucometer 436 Random Glucose 455 H* Calcium 7.5 L Total Bilirubin 0.5 AST 11 L ALT 20 Alkaline Phosphatase 66 Total Protein 6.0 L Albumin 2.0 L 05/21/20 11:32 WBC RBC Hgb Hct MCV MCH MCHC RDW Plt Count MPV Absolute Neuts (auto) Neutrophils % Neutrophils % (Manual) Band Neutrophils % Lymphocytes % Lymphocytes % (Manual) Monocytes % Monocytes % (Manual) Eosinophils % Eosinophils % (Manual) Basophils % Basophils % (Manual) Myelocytes % (Man) Promyelocytes % (Man) Blast Cells % (Manual) Nucleated RBC % Metamyelocytes Hypochromia Platelet Estimate Polychromasia Poikilocytosis Anisocytosis Microcytosis Macrocytosis Sodium Potassium Chloride Carbon Dioxide Anion Gap BUN Creatinine Est GFR (CKD-EPI)AfAm Est GFR (CKD-EPI)NonAf POC Glucometer 510 Random Glucose Calcium Total Bilirubin AST ALT Alkaline Phosphatase Total Protein Albumin A/P Acute on Chronic Diastolic Heart Failure Acute on Chronic Renal Failure Cellulitis r/o Pneumonia CAD s/p CABG HTN DM PAD - Add expectorant - Wean Medrol - Lasix - monitor urine output, creatinine - O2 to keep SpO2 >90% - inhaled bronchodilators - continue antibiotics - DVT prophylaxis Dr Gibbs
[2020-05-21] MEDS: guaiFENesin/D-METHORPHAN TAB.ER.12H PO SCH ×2 (14:31→22:10)
--- NOTE | 2020-05-21 20:54 | PN ---
Progress Note, Physician History of Present Illness: No new complaints - Current Medication List Current Medications: Active Medications Albuterol Sulfate (Ventolin 0.083% Nebulizer Soln -) 1 amp NEB Q4H PRN PRN Reason: SHORT OF BREATH/WHEEZING Albuterol/Ipratropium (Duoneb -) 1 amp NEB RQID [facility] Last Admin: 05/21/20 20:51 Dose: Not Given Documented by: Amlodipine Besylate (Norvasc -) 5 mg PO DAILY [facility] Last Admin: 05/21/20 10:20 Dose: 5 mg Documented by: Amoxicillin/Clavulanate Potassium (Augmentin - 250mg Tablet) 1 tab PO BID@0800,1730 [facility] Last Admin: 05/21/20 17:04 Dose: 1 tab Documented by: Apixaban (Eliquis -) 2.5 mg PO BID [facility] Last Admin: 05/21/20 10:19 Dose: 2.5 mg Documented by: Aspirin (Ecotrin -) 81 mg PO DAILY [facility] Last Admin: 05/21/20 10:19 Dose: 81 mg Documented by: Atorvastatin Calcium (Lipitor -) 20 mg PO HS [facility] Last Admin: 05/20/20 21:07 Dose: 20 mg Documented by: Calcium Carbonate/Cholecalciferol (Os-Osvaldo 500+D -) 1 tab PO DAILY [facility] Last Admin: 05/21/20 10:19 Dose: 1 tab Documented by: Duloxetine HCl (Cymbalta -) 40 mg PO DAILY [facility] Last Admin: 05/21/20 10:19 Dose: 40 mg Documented by: Furosemide (Lasix Injection -) 80 mg IVPB BID@0600,1400 [facility] Last Admin: 05/21/20 14:04 Dose: 80 mg Documented by: Gabapentin (Neurontin -) 100 mg PO BID [facility] Last Admin: 05/21/20 10:19 Dose: 100 mg Documented by: Guaifenesin (Robitussin -) 10 ml PO Q4H PRN PRN Reason: COUGH Last Admin: 05/21/20 14:05 Dose: 10 ml Documented by: Guaifenesin (Mucinex Dm -) 2 tablet PO BID [facility] Last Admin: 05/21/20 14:31 Dose: 2 tablet Documented by: Insulin Aspart (Novolog Vial Sliding Scale -) 1 vial SQ [facility]; Protocol Last Admin: 05/21/20 17:04 Dose: 15 units Documented by: Insulin Detemir (Levemir Vial) 20 units SQ BID [facility] Last Admin: 05/21/20 10:20 Dose: 20 units Documented by: Methylprednisolone Sodium Succinate (Solu-Medrol -) 40 mg IVPUSH BID [facility] Last Admin: 05/21/20 14:11 Dose: Not Given Documented by: Metoprolol Succinate (Toprol Xl -) 25 mg PO DAILY [facility] Last Admin: 05/21/20 10:19 Dose: 25 mg Documented by: Pantoprazole Sodium (Protonix -) 40 mg PO DAILY [facility] Last Admin: 05/21/20 10:20 Dose: 40 mg Documented by: Zolpidem Tartrate (Ambien -) 5 mg PO HS PRN PRN Reason: INSOMNIA Last Admin: 05/20/20 21:07 Dose: 5 mg Documented by: - Objective Vital Signs: Vital Signs Temperature 98.6 F 05/21/20 19:33 Pulse Rate 75 05/21/20 19:33 Respiratory Rate 20 05/21/20 14:26 Blood Pressure 142/73 05/21/20 19:33 O2 Sat by Pulse Oximetry (%) 95 05/21/20 19:33 Cardiovascular: Yes: WNL, Regular Rate and Rhythm Respiratory: Yes: Diminished Gastrointestinal: Yes: WNL, Normal Bowel Sounds, Soft Extremities: Yes: Other (Lt foot in dressing) Labs: CBC, BMP 05/21/20 07:10 05/21/20 18:30 INR, PTT INR 1.20 (0.83-1.09) H 05/12/20 14:48 Problem List - Problems (1) Diabetic ulcer of left foot Assessment/Plan: Cont IV Zosyn Wound culture (+) for enterobacter/Grp D strept MRI did not show any osteo but ?foreign body lt foot XRAY Lt foot ?foreign body 5th toe Will get podiatry consult As per ID/vascular surgery Code(s): E11.621 - TYPE 2 DIABETES MELLITUS WITH FOOT ULCER; L97.529 - NON- PRESSURE CHRONIC ULCER OTH PRT LEFT FOOT W UNSP SEVERITY Qualifiers: Diabetic foot ulcer location: unspecified part of foot Diabetes mellitus type: type 2 Non-pressure ulcer stage: unspecified non-pressure ulcer stage Qualified Code(s): E11.621 - Type 2 diabetes mellitus with foot ulcer; L97.529 - Non-pressure chronic ulcer of other part of left foot with unspecified severity (2) CHF (congestive heart failure) Assessment/Plan: Pt given IV lasix CXR shows worsening congestion Monitor electrolytes Code(s): I50.9 - HEART FAILURE, UNSPECIFIED (3) Pneumonia Assessment/Plan: Cont IV zosyn CXR 05/18/20 showed RUL infiltrate and ?LLL infiltrate w/ congestive changes Repeat COVID testing was negative Code(s): J18.9 - PNEUMONIA, UNSPECIFIED ORGANISM (4) Atrial fibrillation Assessment/Plan: renal dosing of eliquis Rate controlled Code(s): I48.91 - UNSPECIFIED ATRIAL FIBRILLATION (5) Acute on chronic renal failure Code(s): N17.9 - ACUTE KIDNEY FAILURE, UNSPECIFIED; N18.9 - CHRONIC KIDNEY DISEASE, UNSPECIFIED (6) Hx of CABG Code(s): Z95.1 - PRESENCE OF AORTOCORONARY BYPASS GRAFT (7) PAD (peripheral artery disease) Code(s): I73.9 - PERIPHERAL VASCULAR DISEASE, UNSPECIFIED (8) Hyperlipidemia Code(s): E78.5 - HYPERLIPIDEMIA, UNSPECIFIED Qualifiers: Hyperlipidemia type: pure hypercholesterolemia Qualified Code(s): E78.00 - Pure hypercholesterolemia, unspecified; E78.0 - Pure hypercholesterolemia (9) Hypertension Code(s): I10 - ESSENTIAL (PRIMARY) HYPERTENSION Qualifiers: Hypertension type: essential hypertension Qualified Code(s): I10 - Essential (primary) hypertension
--- NOTE | 2020-05-21 20:58 | PN ---
Progress Note, Physician History of Present Illness: Pt without new complaints. Still with RUIZ, no current cough noted. Afebrile. - Current Medication List Current Medications: Active Medications Albuterol Sulfate (Ventolin 0.083% Nebulizer Soln -) 1 amp NEB Q4H PRN PRN Reason: SHORT OF BREATH/WHEEZING Albuterol/Ipratropium (Duoneb -) 1 amp NEB RQID [facility] Last Admin: 05/21/20 20:51 Dose: Not Given Documented by: Amlodipine Besylate (Norvasc -) 5 mg PO DAILY [facility] Last Admin: 05/21/20 10:20 Dose: 5 mg Documented by: Amoxicillin/Clavulanate Potassium (Augmentin - 250mg Tablet) 1 tab PO BID@ 0800,1730 [facility] Last Admin: 05/21/20 17:04 Dose: 1 tab Documented by: Apixaban (Eliquis -) 2.5 mg PO BID [facility] Last Admin: 05/21/20 10:19 Dose: 2.5 mg Documented by: Aspirin (Ecotrin -) 81 mg PO DAILY [facility] Last Admin: 05/21/20 10:19 Dose: 81 mg Documented by: Atorvastatin Calcium (Lipitor -) 20 mg PO HS [facility] Last Admin: 05/20/20 21:07 Dose: 20 mg Documented by: Calcium Carbonate/Cholecalciferol (Os-Osvaldo 500+D -) 1 tab PO DAILY [facility] Last Admin: 05/21/20 10:19 Dose: 1 tab Documented by: Duloxetine HCl (Cymbalta -) 40 mg PO DAILY [facility] Last Admin: 05/21/20 10:19 Dose: 40 mg Documented by: Furosemide (Lasix Injection -) 80 mg IVPB BID@0600,1400 [facility] Last Admin: 05/21/20 14:04 Dose: 80 mg Documented by: Gabapentin (Neurontin -) 100 mg PO BID [facility] Last Admin: 05/21/20 10:19 Dose: 100 mg Documented by: Guaifenesin (Robitussin -) 10 ml PO Q4H PRN PRN Reason: COUGH Last Admin: 05/21/20 14:05 Dose: 10 ml Documented by: Guaifenesin (Mucinex Dm -) 2 tablet PO BID [facility] Last Admin: 05/21/20 14:31 Dose: 2 tablet Documented by: Insulin Aspart (Novolog Vial Sliding Scale -) 1 vial SQ ACHS [facility]; Protocol Last Admin: 05/21/20 17:04 Dose: 15 units Documented by: Insulin Detemir (Levemir Vial) 20 units SQ BID [facility] Last Admin: 05/21/20 10:20 Dose: 20 units Documented by: Methylprednisolone Sodium Succinate (Solu-Medrol -) 40 mg IVPUSH BID [facility] Last Admin: 05/21/20 14:11 Dose: Not Given Documented by: Metoprolol Succinate (Toprol Xl -) 25 mg PO DAILY [facility] Last Admin: 05/21/20 10:19 Dose: 25 mg Documented by: Pantoprazole Sodium (Protonix -) 40 mg PO DAILY [facility] Last Admin: 05/21/20 10:20 Dose: 40 mg Documented by: Zolpidem Tartrate (Ambien -) 5 mg PO HS PRN PRN Reason: INSOMNIA Last Admin: 05/20/20 21:07 Dose: 5 mg Documented by: - Objective Vital Signs: Vital Signs Temperature 98.6 F 05/21/20 19:33 Pulse Rate 75 05/21/20 19:33 Respiratory Rate 20 05/21/20 14:26 Blood Pressure 142/73 05/21/20 19:33 O2 Sat by Pulse Oximetry (%) 95 05/21/20 19:33 Constitutional: Yes: No Distress, Calm Eyes: Yes: Conjunctiva Clear Cardiovascular: Yes: Regular Rate and Rhythm Respiratory: Yes: Rhonchi (scattered, mild wheeze) Gastrointestinal: Yes: Normal Bowel Sounds, Soft Extremities: Yes: Other (resolved LLE erythema, no drainage from ulcer) Integumentary: Yes: WNL Neurological: Yes: Alert Labs: CBC, BMP 05/21/20 07:10 05/21/20 18:30 INR, PTT INR 1.20 (0.83-1.09) H 05/12/20 14:48 Laboratory Last Values WBC 8.8 K/mm3 (4.0-10.0) 05/21/20 07:10 RBC 2.82 M/mm3 (4.00-5.60) L 05/21/20 07:10 Hgb 7.6 GM/dL (11.7-16.9) L 05/21/20 07:10 Hct 23.9 % (35.4-49) L 05/21/20 07:10 MCV 84.9 fl (80-96) 05/21/20 07:10 MCH 27.0 pg (25.7-33.7) 05/21/20 07:10 MCHC 31.8 g/dl (32.0-35.9) L 05/21/20 07:10 RDW 15.7 % (11.9-15.9) 05/21/20 07:10 Plt Count 306 K/MM3 (134-434) 05/21/20 07:10 MPV 9.5 fl (7.5-11.1) 05/21/20 07:10 Absolute Neuts (auto) 8.4 K/mm3 (1.5-8.0) H 05/21/20 07:10 Neutrophils % 96.0 % (42.8-82.8) H D 05/21/20 07:10 Neutrophils % (Manual) 93.0 % (42.8-82.8) H 05/21/20 07:10 Band Neutrophils % 0.0 % 05/21/20 07:10 Lymphocytes % 3.0 % (8-40) L D 05/21/20 07:10 Lymphocytes % (Manual) 6.0 % (8-40) L 05/21/20 07:10 Monocytes % 0.7 % (3.8-10.2) L D 05/21/20 07:10 Monocytes % (Manual) 1 % (3.8-10.2) L 05/21/20 07:10 Eosinophils % 0.1 % (0-4.5) D 05/21/20 07:10 Eosinophils % (Manual) 0.0 % (0-4.5) 05/21/20 07:10 Basophils % 0.2 % (0-2.0) 05/21/20 07:10 Basophils % (Manual) 0.0 % (0-2.0) 05/21/20 07:10 Myelocytes % (Man) 0 % (0-2) 05/21/20 07:10 Promyelocytes % (Man) 0 % (0-2) 05/21/20 07:10 Blast Cells % (Manual) 0 % (0-0) 05/21/20 07:10 Nucleated RBC % 0 % (0-0) 05/21/20 07:10 Metamyelocytes 0 % (0-2) 05/21/20 07:10 Hypochromia 0 05/21/20 07:10 Platelet Estimate Normal 05/21/20 07:10 Polychromasia 2+ 05/21/20 07:10 Poikilocytosis 0 05/21/20 07:10 Anisocytosis 2+ 05/21/20 07:10 Microcytosis 2+ 05/21/20 07:10 Macrocytosis 0 05/21/20 07:10 ESR 105 mm/hr (0-20) H 05/12/20 14:48 PT with INR 14.20 SEC (9.7-13.0) H 05/12/20 14:48 INR 1.20 (0.83-1.09) H 05/12/20 14:48 Sodium 135 mmol/L (136-145) L 05/21/20 07:10 Potassium 4.7 mmol/L (3.5-5.1) 05/21/20 07:10 Chloride 100 mmol/L (98-107) 05/21/20 07:10 Carbon Dioxide 23 mmol/L (21-32) 05/21/20 07:10 Anion Gap 12 MMOL/L (8-16) 05/21/20 07:10 BUN 98.0 mg/dL (7-18) H 05/21/20 07:10 Creatinine 6.9 mg/dL (0.55-1.3) H 05/21/20 07:10 Est GFR (CKD-EPI)AfAm 8.46 05/21/20 07:10 Est GFR (CKD-EPI)NonAf 7.30 05/21/20 07:10 POC Glucometer 542 UNITS (80-120) 05/21/20 16:39 Random Glucose 572 mg/dL (74-106) H* 05/21/20 18:30 Lactic Acid 1.8 mmol/L (0.4-2.0) 05/12/20 14:48 Calcium 7.5 mg/dL (8.5-10.1) L 05/21/20 07:10 Phosphorus 5.5 mg/dL (2.5-4.9) H 05/19/20 08:00 Magnesium 2.3 mg/dL (1.8-2.4) 05/19/20 08:00 Iron 12 ug/dL (50-175) L 05/14/20 07:38 TIBC 189 ug/dL (250-450) L 05/14/20 07:38 Iron Saturation 6 % (17.5-39) L 05/14/20 07:38 Unsaturated IBC 177 ug/dL (200-275) L 05/14/20 07:38 Ferritin 63.6 ng/ml (8-388) 05/14/20 07:38 Total Bilirubin 0.5 mg/dL (0.2-1) 05/21/20 07:10 AST 11 U/L (15-37) L 05/21/20 07:10 ALT 20 U/L (13-61) 05/21/20 07:10 Alkaline Phosphatase 66 U/L (45-117) 05/21/20 07:10 C-Reactive Protein 1.6 MG/DL (0.00-0.3) H 05/12/20 14:48 Total Protein 6.0 g/dl (6.4-8.2) L 05/21/20 07:10 Albumin 2.0 g/dl (3.4-5.0) L 05/21/20 07:10 Urine Color Yellow 05/12/20 18:45 Urine Appearance Clear 05/12/20 18:45 Urine pH 6.0 (5.0-8.0) 05/12/20 18:45 Ur Specific [place] 1.015 (1.010-1.035) 05/12/20 18:45 Urine Protein 3+ (NEGATIVE) H 05/12/20 18:45 Urine Glucose (UA) 3+ (NEGATIVE) H 05/12/20 18:45 Urine Ketones Negative (NEGATIVE) 05/12/20 18:45 Urine Blood 1+ (NEGATIVE) H 05/12/20 18:45 Urine Nitrite Negative (NEGATIVE) 05/12/20 18:45 Urine Bilirubin Negative (NEGATIVE) 05/12/20 18:45 Urine Urobilinogen 0.2 mg/dL (0.2-1.0) 05/12/20 18:45 Ur Leukocyte Esterase Negative (NEGATIVE) 05/12/20 18:45 Urine WBC (Auto) 9 /uL (0-25.8) 05/12/20 18:45 Urine RBC (Auto) 20 /uL (0-23.9) 05/12/20 18:45 Urine Casts (Auto) 1 /uL (0-3.1) 05/12/20 18:45 U Epithel Cells (Auto) 6 /uL (0-25.1) 05/12/20 18:45 Urine Bacteria (Auto) 10 /uL (0-1359) 05/12/20 18:45 Random Vancomycin 11.2 ug/ml (5-26) 05/14/20 07:38 COVID-19 (PRISCILLA) Not detected (Not Detected) 05/17/20 06:00 Blood Type A POSITIVE 05/12/20 14:48 Antibody Screen Negative 05/12/20 14:48 Active Medications Albuterol Sulfate (Ventolin 0.083% Nebulizer Soln -) 1 amp NEB Q4H PRN PRN Reason: SHORT OF BREATH/WHEEZING Albuterol/Ipratropium (Duoneb -) 1 amp NEB RQID [facility] Last Admin: 05/21/20 20:51 Dose: Not Given Documented by: Amlodipine Besylate (Norvasc -) 5 mg PO DAILY [facility] Last Admin: 05/21/20 10:20 Dose: 5 mg Documented by: Amoxicillin/Clavulanate Potassium (Augmentin - 250mg Tablet) 1 tab PO BID@08 00,1730 [facility] Last Admin: 05/21/20 17:04 Dose: 1 tab Documented by: Apixaban (Eliquis -) 2.5 mg PO BID [facility] Last Admin: 05/21/20 10:19 Dose: 2.5 mg Documented by: Aspirin (Ecotrin -) 81 mg PO DAILY [facility] Last Admin: 05/21/20 10:19 Dose: 81 mg Documented by: Atorvastatin Calcium (Lipitor -) 20 mg PO HS [facility] Last Admin: 05/20/20 21:07 Dose: 20 mg Documented by: Calcium Carbonate/Cholecalciferol (Os-Osvaldo 500+D -) 1 tab PO DAILY [facility] Last Admin: 05/21/20 10:19 Dose: 1 tab Documented by: Duloxetine HCl (Cymbalta -) 40 mg PO DAILY [facility] Last Admin: 05/21/20 10:19 Dose: 40 mg Documented by: Furosemide (Lasix Injection -) 80 mg IVPB BID@0600,1400 [facility] Last Admin: 05/21/20 14:04 Dose: 80 mg Documented by: Gabapentin (Neurontin -) 100 mg PO BID [facility] Last Admin: 05/21/20 10:19 Dose: 100 mg Documented by: Guaifenesin (Robitussin -) 10 ml PO Q4H PRN PRN Reason: COUGH Last Admin: 05/21/20 14:05 Dose: 10 ml Documented by: Guaifenesin (Mucinex Dm -) 2 tablet PO BID [facility] Last Admin: 05/21/20 14:31 Dose: 2 tablet Documented by: Insulin Aspart (Novolog Vial Sliding Scale -) 1 vial SQ [facility]; Protocol Last Admin: 05/21/20 17:04 Dose: 15 units Documented by: Insulin Detemir (Levemir Vial) 20 units SQ BID [facility] Last Admin: 05/21/20 10:20 Dose: 20 units Documented by: Methylprednisolone Sodium Succinate (Solu-Medrol -) 40 mg IVPUSH BID [facility] Last Admin: 05/21/20 14:11 Dose: Not Given Documented by: Metoprolol Succinate (Toprol Xl -) 25 mg PO DAILY [facility] Last Admin: 05/21/20 10:19 Dose: 25 mg Documented by: Pantoprazole Sodium (Protonix -) 40 mg PO DAILY [facility] Last Admin: 05/21/20 10:20 Dose: 40 mg Documented by: Zolpidem Tartrate (Ambien -) 5 mg PO HS PRN PRN Reason: INSOMNIA Last Admin: 05/20/20 21:07 Dose: 5 mg Documented by: - ....Imaging X-ray: Report Reviewed MRI: Report Reviewed Problem List - Problems (1) Acute congestive heart failure Code(s): I50.9 - HEART FAILURE, UNSPECIFIED (2) Atrial fibrillation Code(s): I48.91 - UNSPECIFIED ATRIAL FIBRILLATION (3) Diabetic ulcer of left foot Code(s): E11.621 - TYPE 2 DIABETES MELLITUS WITH FOOT ULCER; L97.529 - NON- PRESSURE CHRONIC ULCER OTH PRT LEFT FOOT W UNSP SEVERITY Qualifiers: Qualified Code(s): E11.621 - Type 2 diabetes mellitus with foot ulcer; L97.529 - Non-pressure chronic ulcer of other part of left foot with unspecified severity (4) Shortness of breath Code(s): R06.02 - SHORTNESS OF BREATH (5) Acute on chronic renal failure Code(s): N17.9 - ACUTE KIDNEY FAILURE, UNSPECIFIED; N18.9 - CHRONIC KIDNEY DISEASE, UNSPECIFIED (6) Diabetic foot infection Code(s): E11.628 - TYPE 2 DIABETES MELLITUS WITH OTHER SKIN COMPLICATIONS; L08.9 - LOCAL INFECTION OF THE SKIN AND SUBCUTANEOUS TISSUE, UNSP (7) Diabetic neuropathy Code(s): E11.40 - TYPE 2 DIABETES MELLITUS WITH DIABETIC NEUROPATHY, UNSP (8) Hx of CABG Code(s): Z95.1 - PRESENCE OF AORTOCORONARY BYPASS GRAFT (9) PAD (peripheral artery disease) Code(s): I73.9 - PERIPHERAL VASCULAR DISEASE, UNSPECIFIED (10) CAD (coronary artery disease) Code(s): I25.10 - ATHSCL HEART DISEASE OF [place] CORONARY ARTERY W/O ANG PCTRS Qualifiers: Qualified Code(s): I25.10 - Atherosclerotic heart disease of [place] coronary artery without angina pectoris (11) Hyperlipidemia Code(s): E78.5 - HYPERLIPIDEMIA, UNSPECIFIED Qualifiers: Qualified Code(s): E78.00 - Pure hypercholesterolemia, unspecified; E78.0 - Pure hypercholesterolemia (12) Hypertension Code(s): I10 - ESSENTIAL (PRIMARY) HYPERTENSION Qualifiers: Qualified Code(s): I10 - Essential (primary) hypertension Assessment/Plan Lt foot cellulitis - improved ? Otitis media - Eustachian tube dysfunction ? PNA Acute resp failure Acute on Chronic renal failure Acute on Chronic HF Uncontrolled DM with neuropathy Anemia CAD AFIB s/p CVA Obesity BOBY -- LLE erythema resolved/ ulcer dry, ? foreign body on imaging. Podiatry follow up. -- continue Augmentin x 2 more days -- continue wound care -- monitor vitals, O2 supplementation
[2020-05-21] MEDS: ATORVASTATIN CA 20 MG TABLET (FP) PO SCH (21:12)
[2020-05-21] MEDS: ZOLPIDEM TARTRATE 5 MG TABLET PO PRN (21:17)
[2020-05-22] MEDS: FUROSEMIDE 40 MG/4 ML INJECTABLE VIAL IVPB SCH (06:05)
[2020-05-22] MEDS: INSULIN (NOVOLOG MIX 70/30) 100 UNITS/ML MDV SQ SCH ×2 (06:31→16:55)
[2020-05-22] MEDS: INSULIN SLIDING SCALE (NOVOLOG) 1 VIAL SQ SCH ×4 (06:32→21:23)
[2020-05-22] MEDS: ALBUTEROL SO4 2.5/IPRATROPIUM 0.5 INH SOL 3 ML VIAL.NEB. NEB SCH ×4 (07:35→19:20)
[2020-05-22] MEDS: AMOX TR/POT CLAV 250MG/125MG TABLETS PO SCH ×2 (08:16→17:09)
--- NOTE | 2020-05-22 09:18 | PN ---
Progress Note, Physician History of Present Illness: Mr. Red is a 69 year old white male with PMHx of CKD stage 5, hypertension, DM (insulin pump), PVD, CAD s/p CABG 2016 (no hx NM), PAD-->LLE stent 2017 (Dr. Carolyn Garcia), CVA ("three TIAs", with residual mild left-sided weakness), diastolic CHF, s/p atrial "flutter"-->ablation Rx 2018 at [facility] (now on metoprolol and apixaban), anemia, elevated TNI since at least 2017, obesity (s/p gastric bypass surgery; weighed 285 lbs before the surgery), who was sent in from the wound care clinic with LE (dorsum of left foot) wound and found to have suspected cellulitis. He says he was told he would "need surgery". (He says he has been walking regularly, and that the wound does not impede this. Seen and examined at the bedside. Pt follows with Dr. Shy Brown as an outpatient for CKD, was last seen May 03. He offers no acute complaints at this time. No SOB, CP, fever, chills, N/V/D, flank pain, dysuria or frequency. Making urine. No leg swelling. PMD: Dr. Joaquín Adam Electronic Scale Subassembler: Dr. James, [facility] Surgical Hx: spinal disk replacement kidney stone removal/stent CABG 2015 bariatric surgery 04/19 CEA (R) 12/22 EPS: ablation of atrial flutter 06/21 berto LE laser vein surgery - Current Medication List Current Medications: Active Medications Albuterol Sulfate (Ventolin 0.083% Nebulizer Soln -) 1 amp NEB Q4H PRN PRN Reason: SHORT OF BREATH/WHEEZING Albuterol/Ipratropium (Duoneb -) 1 amp NEB RQID [facility] Last Admin: 05/22/20 07:35 Dose: Not Given Documented by: Amlodipine Besylate (Norvasc -) 5 mg PO DAILY [facility] Last Admin: 05/21/20 10:20 Dose: 5 mg Documented by: Amoxicillin/Clavulanate Potassium (Augmentin - 250mg Tablet) 1 tab PO BID@0800,1730 [facility] Last Admin: 05/21/20 17:04 Dose: 1 tab Documented by: Apixaban (Eliquis -) 2.5 mg PO BID [facility] Last Admin: 05/21/20 21:12 Dose: 2.5 mg Documented by: Aspirin (Ecotrin -) 81 mg PO DAILY [facility] Last Admin: 05/21/20 10:19 Dose: 81 mg Documented by: Atorvastatin Calcium (Lipitor -) 20 mg PO HS [facility] Last Admin: 05/21/20 21:12 Dose: 20 mg Documented by: Calcium Carbonate/Cholecalciferol (Os-Osvaldo 500+D -) 1 tab PO DAILY [facility] Last Admin: 05/21/20 10:19 Dose: 1 tab Documented by: Duloxetine HCl (Cymbalta -) 40 mg PO DAILY [facility] Last Admin: 05/21/20 10:19 Dose: 40 mg Documented by: Furosemide (Lasix Injection -) 80 mg IVPB BID@0600,1400 [facility] Last Admin: 05/22/20 06:05 Dose: 80 mg Documented by: Gabapentin (Neurontin -) 100 mg PO BID [facility] Last Admin: 05/21/20 21:12 Dose: 100 mg Documented by: Guaifenesin (Robitussin -) 10 ml PO Q4H PRN PRN Reason: COUGH Last Admin: 05/21/20 21:17 Dose: 10 ml Documented by: Guaifenesin (Mucinex Dm -) 2 tablet PO BID [facility] Last Admin: 05/21/20 22:10 Dose: 2 tablet Documented by: Insulin Aspart (Novolog Vial Sliding Scale -) 1 vial SQ [facility]; Protocol Last Admin: 05/22/20 06:32 Dose: 8 units Documented by: Insulin Aspart (Novolog Mix 70/30 Vial) 25 units SQ BIDAC [facility] Last Admin: 05/22/20 06:31 Dose: 25 units Documented by: Insulin Detemir (Levemir Vial) 20 units SQ BID [facility] Last Admin: 05/21/20 21:13 Dose: 20 units Documented by: Methylprednisolone Sodium Succinate (Solu-Medrol -) 40 mg IVPUSH BID [facility] Last Admin: 05/21/20 21:15 Dose: 40 mg Documented by: Metoprolol Succinate (Toprol Xl -) 25 mg PO DAILY [facility] Last Admin: 05/21/20 10:19 Dose: 25 mg Documented by: Pantoprazole Sodium (Protonix -) 40 mg PO DAILY [facility] Last Admin: 05/21/20 10:20 Dose: 40 mg Documented by: Zolpidem Tartrate (Ambien -) 5 mg PO HS PRN PRN Reason: INSOMNIA Last Admin: 05/21/20 21:17 Dose: 5 mg Documented by: - Objective Vital Signs: Vital Signs Temperature 98.3 F 05/22/20 08:45 Pulse Rate 78 05/22/20 08:45 Respiratory Rate 18 05/22/20 08:45 Blood Pressure 142/73 05/22/20 08:45 O2 Sat by Pulse Oximetry (%) 94 L 05/22/20 08:45 Eyes: Yes: WNL, Conjunctiva Clear, EOM Intact HENT: Yes: WNL, Atraumatic, Normocephalic Neck: Yes: WNL, Supple, Trachea Midline Cardiovascular: Yes: WNL, Regular Rate and Rhythm Respiratory: Yes: WNL, Regular, CTA Bilaterally Gastrointestinal: Yes: WNL, Normal Bowel Sounds Genitourinary: Yes: WNL Musculoskeletal: Yes: WNL Extremities: Yes: WNL Edema: No Integumentary: Yes: WNL Neurological: Yes: WNL, Alert, Oriented ...Motor Strength: WNL Psychiatric: Yes: WNL Labs: CBC, BMP 05/21/20 07:10 05/21/20 18:30 INR, PTT INR 1.20 (0.83-1.09) H 05/12/20 14:48 Assessment/Plan Assessment/Plan s/p CABG Acute/chronic CHF Poorly-controlled DM HTN PAD: non-healing wound. acute/chronic renal dysfunction COVID not detected x 2. Continue metoprolol and apixaban (hx atrial flutter-->ablation therapy 2018). For LE vascular workup; may require procedure for non-healing wound. Repeat EKG (prolonged QT 04/2020). ECHO for ventricular EF, valve status. CXR F/u BUN/Cr, Is and Os, daily weight, electrolytes. Diuretics per mold presser. On antibiotics.
[2020-05-22] MEDS: DULoxetine HCL 20 MG CAPSULE.DR PO SCH (10:16)
[2020-05-22] MEDS: guaiFENesin/D-METHORPHAN TAB.ER.12H PO SCH ×2 (10:17→23:49)
[2020-05-22] MEDS: APIXABAN 2.5 MG TABLET PO SCH ×2 (10:17→21:23)
[2020-05-22] MEDS: ASPIRIN COATED 81 MG TABLET.EC PO SCH (10:17)
[2020-05-22] MEDS: INSULIN (LEVEMIR) 100 UNITS/ML UNITS SQ SCH ×2 (10:17→21:23)
[2020-05-22] MEDS: GABAPENTIN 100 MG CAPSULE PO SCH ×2 (10:18→21:23)
[2020-05-22] MEDS: PANTOPRAZOLE 40 MG TABLET PO SCH (10:18)
[2020-05-22] MEDS: amLODIPine BESYLATE 5 MG TABLET (FP) PO SCH (10:18)
[2020-05-22] MEDS: CALCIUM 500MG/VIT-D 200 UNITS COMBO TABLET (FP) PO SCH (10:18)
[2020-05-22] MEDS: methylPREDNISolone NA SUCC 40 MG/1 ML VIAL IVPUSH SCH ×2 (10:18→21:23)
[2020-05-22] MEDS: metoPROLOL SUCCINATE 25 MG TAB.SR.24H (FP) PO SCH (10:18)
--- NOTE | 2020-05-22 12:28 | PN ---
Progress Note, Physician History of Present Illness: stable still whitaker - Current Medication List Current Medications: Active Medications Albuterol Sulfate (Ventolin 0.083% Nebulizer Soln -) 1 amp NEB Q4H PRN PRN Reason: SHORT OF BREATH/WHEEZING Albuterol/Ipratropium (Duoneb -) 1 amp NEB RQID [facility] Last Admin: 05/22/20 12:04 Dose: Not Given Documented by: Amlodipine Besylate (Norvasc -) 5 mg PO DAILY [facility] Last Admin: 05/22/20 10:18 Dose: 5 mg Documented by: Amoxicillin/Clavulanate Potassium (Augmentin - 250mg Tablet) 1 tab PO BID@0800,1730 [facility] Last Admin: 05/22/20 08:16 Dose: 1 tab Documented by: Apixaban (Eliquis -) 2.5 mg PO BID [facility] Last Admin: 05/22/20 10:17 Dose: 2.5 mg Documented by: Aspirin (Ecotrin -) 81 mg PO DAILY [facility] Last Admin: 05/22/20 10:17 Dose: 81 mg Documented by: Atorvastatin Calcium (Lipitor -) 20 mg PO HS [facility] Last Admin: 05/21/20 21:12 Dose: 20 mg Documented by: Calcium Carbonate/Cholecalciferol (Os-Osvaldo 500+D -) 1 tab PO DAILY [facility] Last Admin: 05/22/20 10:18 Dose: 1 tab Documented by: Duloxetine HCl (Cymbalta -) 40 mg PO DAILY [facility] Last Admin: 05/22/20 10:16 Dose: 40 mg Documented by: Furosemide (Lasix Injection -) 80 mg IVPB BID@0600,1400 [facility] Last Admin: 05/22/20 06:05 Dose: 80 mg Documented by: Gabapentin (Neurontin -) 100 mg PO BID [facility] Last Admin: 05/22/20 10:18 Dose: 100 mg Documented by: Guaifenesin (Robitussin -) 10 ml PO Q4H PRN PRN Reason: COUGH Last Admin: 05/21/20 21:17 Dose: 10 ml Documented by: Guaifenesin (Mucinex Dm -) 2 tablet PO BID [facility] Last Admin: 05/22/20 10:17 Dose: 2 tablet Documented by: Insulin Aspart (Novolog Vial Sliding Scale -) 1 vial SQ [facility]; Protocol Last Admin: 05/22/20 11:27 Dose: 9 units Documented by: Insulin Aspart (Novolog Mix 70/30 Vial) [facility] Last Admin: 05/22/20 06:31 Dose: 25 units Documented by: Insulin Detemir (Levemir Vial) 20 units SQ BID [facility] Last Admin: 05/22/20 10:17 Dose: 20 units Documented by: Methylprednisolone Sodium Succinate (Solu-Medrol -) 40 mg IVPUSH BID [facility] Last Admin: 05/22/20 10:18 Dose: 40 mg Documented by: Metoprolol Succinate (Toprol Xl -) 25 mg PO DAILY [facility] Last Admin: 05/22/20 10:18 Dose: 25 mg Documented by: Pantoprazole Sodium (Protonix -) 40 mg PO DAILY [facility] Last Admin: 05/22/20 10:18 Dose: 40 mg Documented by: Zolpidem Tartrate (Ambien -) 5 mg PO HS PRN PRN Reason: INSOMNIA Last Admin: 05/21/20 21:17 Dose: 5 mg Documented by: - Objective Vital Signs: Vital Signs Temperature 98.3 F 05/22/20 08:45 Pulse Rate 78 05/22/20 08:45 Respiratory Rate 18 05/22/20 08:45 Blood Pressure 142/73 05/22/20 08:45 O2 Sat by Pulse Oximetry (%) 94 L 05/22/20 09:00 Constitutional: Yes: Calm, Mild Distress Cardiovascular: Yes: S1, S2 Respiratory: Yes: Regular, CTA Bilaterally Gastrointestinal: Yes: Normal Bowel Sounds, Soft Musculoskeletal: Yes: WNL Extremities: Yes: Other Neurological: Yes: Alert, Oriented Psychiatric: Yes: Alert, Oriented Labs: CBC, BMP 05/21/20 07:10 05/21/20 18:30 INR, PTT INR 1.20 (0.83-1.09) H 05/12/20 14:48 Assessment/Plan Problem List - Problems (1) Acute congestive heart failure Code(s): I50.9 - HEART FAILURE, UNSPECIFIED (2) Atrial fibrillation Code(s): I48.91 - UNSPECIFIED ATRIAL FIBRILLATION (3) Diabetic ulcer of left foot Code(s): E11.621 - TYPE 2 DIABETES MELLITUS WITH FOOT ULCER; L97.529 - NON- PRESSURE CHRONIC ULCER OTH PRT LEFT FOOT W UNSP SEVERITY Qualifiers: Qualified Code(s): E11.621 - Type 2 diabetes mellitus with foot ulcer; L97.529 - Non-pressure chronic ulcer of other part of left foot with unspecified severity (4) Shortness of breath Code(s): R06.02 - SHORTNESS OF BREATH (5) Acute on chronic renal failure Code(s): N17.9 - ACUTE KIDNEY FAILURE, UNSPECIFIED; N18.9 - CHRONIC KIDNEY DISEASE, UNSPECIFIED (6) Diabetic foot infection Code(s): E11.628 - TYPE 2 DIABETES MELLITUS WITH OTHER SKIN COMPLICATIONS; L08.9 - LOCAL INFECTION OF THE SKIN AND SUBCUTANEOUS TISSUE, UNSP (7) Diabetic neuropathy Code(s): E11.40 - TYPE 2 DIABETES MELLITUS WITH DIABETIC NEUROPATHY, UNSP (8) Hx of CABG Code(s): Z95.1 - PRESENCE OF AORTOCORONARY BYPASS GRAFT (9) PAD (peripheral artery disease) Code(s): I73.9 - PERIPHERAL VASCULAR DISEASE, UNSPECIFIED (10) CAD (coronary artery disease) Code(s): I25.10 - ATHSCL HEART DISEASE OF [place] CORONARY ARTERY W/O ANG PCTRS Qualifiers: Qualified Code(s): I25.10 - Atherosclerotic heart disease of [place] coronary artery without angina pectoris (11) Hyperlipidemia Code(s): E78.5 - HYPERLIPIDEMIA, UNSPECIFIED Qualifiers: Qualified Code(s): E78.00 - Pure hypercholesterolemia, unspecified; E78.0 - Pure hypercholesterolemia (12) Hypertension Code(s): I10 - ESSENTIAL (PRIMARY) HYPERTENSION Qualifiers: Qualified Code(s): I10 - Essential (primary) hypertension Assessment/Plan Lt foot cellulitis - improved ? Otitis media - Eustachian tube dysfunction ? PNA Acute resp failure Acute on Chronic renal failure Acute on Chronic HF Uncontrolled DM with neuropathy Anemia CAD AFIB s/p CVA Obesity BOBY -- LLE erythema resolved/ ulcer dry, ? foreign body on imaging. Podiatry follow up. -- continue Augmentin x 2 more days -- continue wound care -- monitor vitals, O2 supplementation
--- NOTE | 2020-05-22 12:43 | PN ---
Progress Note (short form) - Note Progress Note: Feels overall better today. No acute events overnight. Intake & Output 05/19/20 05/20/20 05/21/20 05/22/20 23:59 23:59 23:59 23:59 Intake Total 974 1630 810 240 Output Total 550 1050 400 Balance 424 580 410 240 Weight 193 lb 4.8 oz 198 lb 2 oz 204 lb 2 oz 207 lb 12.8 oz Last Vital Signs Temp Pulse Resp BP Pulse Ox 98.3 F 78 18 142/73 94 L 05/22/20 08:45 05/22/20 08:45 05/22/20 08:45 05/22/20 08:45 05/22/20 09:00 Active Medications Albuterol Sulfate (Ventolin 0.083% Nebulizer Soln -) 1 amp NEB Q4H PRN PRN Reason: SHORT OF BREATH/WHEEZING Albuterol/Ipratropium (Duoneb -) 1 amp NEB RQID [facility] Last Admin: 05/22/20 12:04 Dose: Not Given Documented by: Amlodipine Besylate (Norvasc -) 5 mg PO DAILY [facility] Last Admin: 05/22/20 10:18 Dose: 5 mg Documented by: Amoxicillin/Clavulanate Potassium (Augmentin - 250mg Tablet) 1 tab PO BID@0800,1730 [facility] Last Admin: 05/22/20 08:16 Dose: 1 tab Documented by: Apixaban (Eliquis -) 2.5 mg PO BID [facility] Last Admin: 05/22/20 10:17 Dose: 2.5 mg Documented by: Aspirin (Ecotrin -) 81 mg PO DAILY [facility] Last Admin: 05/22/20 10:17 Dose: 81 mg Documented by: Atorvastatin Calcium (Lipitor -) 20 mg PO HS [facility] Last Admin: 05/21/20 21:12 Dose: 20 mg Documented by: Calcium Carbonate/Cholecalciferol (Os-Osvaldo 500+D -) 1 tab PO DAILY [facility] Last Admin: 05/22/20 10:18 Dose: 1 tab Documented by: Duloxetine HCl (Cymbalta -) 40 mg PO DAILY [facility] Last Admin: 05/22/20 10:16 Dose: 40 mg Documented by: Furosemide (Lasix Injection -) 80 mg IVPB BID@0600,1400 [facility] Last Admin: 05/22/20 06:05 Dose: 80 mg Documented by: Gabapentin (Neurontin -) 100 mg PO BID [facility] Last Admin: 05/22/20 10:18 Dose: 100 mg Documented by: Guaifenesin (Robitussin -) 10 ml PO Q4H PRN PRN Reason: COUGH Last Admin: 05/21/20 21:17 Dose: 10 ml Documented by: Guaifenesin (Mucinex Dm -) 2 tablet PO BID [facility] Last Admin: 05/22/20 10:17 Dose: 2 tablet Documented by: Insulin Aspart (Novolog Vial Sliding Scale -) 1 vial SQ ACHS [facility]; Protocol Last Admin: 05/22/20 11:27 Dose: 9 units Documented by: Insulin Aspart (Novolog Mix 70/30 Vial) [facility] Admin: 05/22/20 06:31 Dose: 25 units Documented by: Insulin Detemir (Levemir Vial) 20 units SQ BID [facility] Last Admin: 05/22/20 10:17 Dose: 20 units Documented by: Methylprednisolone Sodium Succinate (Solu-Medrol -) 40 mg IVPUSH BID [facility] Last Admin: 05/22/20 10:18 Dose: 40 mg Documented by: Metoprolol Succinate (Toprol Xl -) 25 mg PO DAILY [facility] Last Admin: 05/22/20 10:18 Dose: 25 mg Documented by: Pantoprazole Sodium (Protonix -) 40 mg PO DAILY [facility] Last Admin: 05/22/20 10:18 Dose: 40 mg Documented by: Zolpidem Tartrate (Ambien -) 5 mg PO HS PRN PRN Reason: INSOMNIA Last Admin: 05/21/20 21:17 Dose: 5 mg Documented by: Gen: NAD Heart: RRR Lung: improving bilateral rhonchi, no wheezes Abd: soft, nontender Ext: no edema Laboratory Results - last 24 hr 05/21/20 05/21/20 05/21/20 11:34 16:39 18:30 POC Glucometer 542 Random Glucose 607 H* 572 H* 05/21/20 05/22/20 05/22/20 21:11 05:21 11:22 POC Glucometer 481 277 308 Random Glucose A/P Acute on Chronic Diastolic Heart Failure Acute on Chronic Renal Failure Cellulitis Pneumonia CAD s/p CABG HTN DM PAD - Expectorant - Can change Medrol to Prednisone - Lasix - monitor urine output, creatinine - O2 to keep SpO2 >90% - inhaled bronchodilators - continue antibiotics - DVT prophylaxis - Check Pre and Post ambulation O2 saturation Dr Gibbs
--- NOTE | 2020-05-22 13:34 | PN ---
Progress Note, Physician Chief Complaint: Leg ulcer History of Present Illness: Seen and examined at the bedside awake and alert reports feeling much better denies any sob today making a lot of urine no cough, fever, chills, N/V/D no leg swelling . - Current Medication List Current Medications: Active Medications Albuterol Sulfate (Ventolin 0.083% Nebulizer Soln -) 1 amp NEB Q4H PRN PRN Reason: SHORT OF BREATH/WHEEZING Albuterol/Ipratropium (Duoneb -) 1 amp NEB RQID [facility] Last Admin: 05/22/20 12:04 Dose: Not Given Documented by: Amlodipine Besylate (Norvasc -) 5 mg PO DAILY [facility] Last Admin: 05/22/20 10:18 Dose: 5 mg Documented by: Amoxicillin/Clavulanate Potassium (Augmentin - 250mg Tablet) 1 tab PO BID@0800,1730 [facility] Last Admin: 05/22/20 08:16 Dose: 1 tab Documented by: Apixaban (Eliquis -) 2.5 mg PO BID [facility] Last Admin: 05/22/20 10:17 Dose: 2.5 mg Documented by: Aspirin (Ecotrin -) 81 mg PO DAILY [facility] Last Admin: 05/22/20 10:17 Dose: 81 mg Documented by: Atorvastatin Calcium (Lipitor -) 20 mg PO HS [facility] Last Admin: 05/21/20 21:12 Dose: 20 mg Documented by: Calcium Carbonate/Cholecalciferol (Os-Osvaldo 500+D -) 1 tab PO DAILY [facility] Last Admin: 05/22/20 10:18 Dose: 1 tab Documented by: Duloxetine HCl (Cymbalta -) 40 mg PO DAILY [facility] Last Admin: 05/22/20 10:16 Dose: 40 mg Documented by: Furosemide (Lasix Injection -) 40 mg IVPUSH BID@0600,1400 [facility] Gabapentin (Neurontin -) 100 mg PO BID [facility] Last Admin: 05/22/20 10:18 Dose: 100 mg Documented by: Guaifenesin (Robitussin -) 10 ml PO Q4H PRN PRN Reason: COUGH Last Admin: 05/21/20 21:17 Dose: 10 ml Documented by: Guaifenesin (Mucinex Dm -) 2 tablet PO BID [facility] Last Admin: 05/22/20 10:17 Dose: 2 tablet Documented by: Insulin Aspart (Novolog Vial Sliding Scale -) 1 vial SQ ACHS [facility]; Protocol Last Admin: 05/22/20 11:27 Dose: 9 units Documented by: Insulin Aspart (Novolog Mix 70/30 Vial) [facility] Last Admin: 05/22/20 06:31 Dose: 25 units Documented by: Insulin Detemir (Levemir Vial) 20 units SQ BID [facility] Last Admin: 05/22/20 10:17 Dose: 20 units Documented by: Methylprednisolone Sodium Succinate (Solu-Medrol -) 40 mg IVPUSH BID [facility] Last Admin: 05/22/20 10:18 Dose: 40 mg Documented by: Metoprolol Succinate (Toprol Xl -) 25 mg PO DAILY [facility] Last Admin: 05/22/20 10:18 Dose: 25 mg Documented by: Pantoprazole Sodium (Protonix -) 40 mg PO DAILY [facility] Last Admin: 05/22/20 10:18 Dose: 40 mg Documented by: Zolpidem Tartrate (Ambien -) 5 mg PO HS PRN PRN Reason: INSOMNIA Last Admin: 05/21/20 21:17 Dose: 5 mg Documented by: - Objective Vital Signs: Vital Signs Temperature 98.3 F 05/22/20 08:45 Pulse Rate 78 05/22/20 08:45 Respiratory Rate 18 05/22/20 08:45 Blood Pressure 142/73 05/22/20 08:45 O2 Sat by Pulse Oximetry (%) 94 L 05/22/20 09:00 Constitutional: Yes: No Distress HENT: Yes: Atraumatic Neck: Yes: Supple Respiratory: Yes: Regular Gastrointestinal: Yes: Soft Extremities: No: Cyanosis Edema: No Labs: CBC, BMP 05/21/20 07:10 05/21/20 18:30 INR, PTT INR 1.20 (0.83-1.09) H 05/12/20 14:48 Assessment/Plan 69 year old male with PMHx of CKD stage 5 (Last outpatient Cr 5), hypertension, DM, PVD, CAD s/p CABG who was sent in from the wound care clinic with LE wound and found to have suspected cellulitis. 1. CKD stage 5 not yet on dialysis 2. LE wound 3. Cellulitis of the lower extremity 4. Hypertension 5. DM 6. Chronic anemia Renal function worsening in setting of high dose IV diuretics clinically imnproved and w/o gross evidence of volume overload Pt reponded well to steroids and B-agonists as per pulmonary will reduce diuretic dose and monitor volume status and renal function no chemistry reported today continue to maintain a low sodium diet Trend renal function and electrolytes daily Jonah Painting DO
[2020-05-22 15:48] LABS: CREATININE 6.7 mg/dL (0.55-1.3); POTASSIUM 4.3 mmol/L (3.5-5.1)
[2020-05-22 16:02] LABS: BLOOD UREA NITROGEN 110.8 mg/dL (7-18)
[2020-05-22] MEDS ORDERED: INSULIN (NOVOLOG) ASPART 100 UNITS/ML 10ML VIAL ONE (21:03)
[2020-05-22] MEDS: ATORVASTATIN CA 20 MG TABLET (FP) PO SCH (21:23)
[2020-05-22] MEDS: ZOLPIDEM TARTRATE 5 MG TABLET PO PRN (21:23)
--- NOTE | 2020-05-22 21:52 | PN ---
Progress Note, Physician History of Present Illness: No new complaints however not OOB much - Current Medication List Current Medications: Active Medications Albuterol Sulfate (Ventolin 0.083% Nebulizer Soln -) 1 amp NEB Q4H PRN PRN Reason: SHORT OF BREATH/WHEEZING Albuterol/Ipratropium (Duoneb -) 1 amp NEB RQID [facility] Last Admin: 05/22/20 19:20 Dose: 1 amp Documented by: Amlodipine Besylate (Norvasc -) 5 mg PO DAILY [facility] Last Admin: 05/22/20 10:18 Dose: 5 mg Documented by: Amoxicillin/Clavulanate Potassium (Augmentin - 250mg Tablet) 1 tab PO BID@0800,1730 [facility] Last Admin: 05/22/20 17:09 Dose: 1 tab Documented by: Apixaban (Eliquis -) 2.5 mg PO BID [facility] Last Admin: 05/22/20 21:23 Dose: 2.5 mg Documented by: Aspirin (Ecotrin -) 81 mg PO DAILY [facility] Last Admin: 05/22/20 10:17 Dose: 81 mg Documented by: Atorvastatin Calcium (Lipitor -) 20 mg PO HS [facility] Last Admin: 05/22/20 21:23 Dose: 20 mg Documented by: Calcium Carbonate/Cholecalciferol (Os-Osvaldo 500+D -) 1 tab PO DAILY [facility] Last Admin: 05/22/20 10:18 Dose: 1 tab Documented by: Duloxetine HCl (Cymbalta -) 40 mg PO DAILY [facility] Last Admin: 05/22/20 10:16 Dose: 40 mg Documented by: Furosemide (Lasix Injection -) 40 mg IVPUSH DAILY [facility] Gabapentin (Neurontin -) 100 mg PO BID [facility] Last Admin: 05/22/20 21:23 Dose: 100 mg Documented by: Guaifenesin (Robitussin -) 10 ml PO Q4H PRN PRN Reason: COUGH Last Admin: 05/21/20 21:17 Dose: 10 ml Documented by: Guaifenesin (Mucinex Dm -) 2 tablet PO BID [facility] Last Admin: 05/22/20 10:17 Dose: 2 tablet Documented by: Insulin Aspart (Novolog Vial Sliding Scale -) 1 vial SQ [facility]; Protocol Last Admin: 05/22/20 21:23 Dose: 12 units Documented by: Insulin Aspart (Novolog Mix 70/30 Vial) 25 units SQ BIDAC [facility] Last Admin: 05/22/20 16:55 Dose: 25 units Documented by: Insulin Detemir (Levemir Vial) 20 units SQ BID [facility] Last Admin: 05/22/20 21:23 Dose: 20 units Documented by: Methylprednisolone Sodium Succinate (Solu-Medrol -) 40 mg IVPUSH BID [facility] Last Admin: 05/22/20 21:23 Dose: 40 mg Documented by: Metoprolol Succinate (Toprol Xl -) 25 mg PO DAILY [facility] Last Admin: 05/22/20 10:18 Dose: 25 mg Documented by: Pantoprazole Sodium (Protonix -) 40 mg PO DAILY [facility] Last Admin: 05/22/20 10:18 Dose: 40 mg Documented by: Zolpidem Tartrate (Ambien -) 5 mg PO HS PRN PRN Reason: INSOMNIA Last Admin: 05/22/20 21:23 Dose: 5 mg Documented by: - Objective Vital Signs: Vital Signs Temperature 97.6 F 05/22/20 19:53 Pulse Rate 77 05/22/20 19:53 Respiratory Rate 18 05/22/20 19:53 Blood Pressure 134/71 05/22/20 19:53 O2 Sat by Pulse Oximetry (%) 97 05/22/20 14:20 Cardiovascular: Yes: WNL, Regular Rate and Rhythm Respiratory: Yes: Diminished Gastrointestinal: Yes: WNL, Normal Bowel Sounds, Soft Extremities: Yes: Other (LLE wound) Labs: CBC, BMP 05/21/20 07:10 05/22/20 14:40 INR, PTT INR 1.20 (0.83-1.09) H 05/12/20 14:48 Problem List - Problems (1) Diabetic ulcer of left foot Assessment/Plan: Pt now on augmentin Wound culture (+) for enterobacter/Grp D strept MRI did not show any osteo but ?foreign body lt foot XRAY Lt foot ?foreign body 5th toe Reconsult vascular surgeon Code(s): E11.621 - TYPE 2 DIABETES MELLITUS WITH FOOT ULCER; L97.529 - NON- PRESSURE CHRONIC ULCER OTH PRT LEFT FOOT W UNSP SEVERITY Qualifiers: Diabetic foot ulcer location: unspecified part of foot Diabetes mellitus type: type 2 Non-pressure ulcer stage: unspecified non-pressure ulcer stage Qualified Code(s): E11.621 - Type 2 diabetes mellitus with foot ulcer; L97.529 - Non-pressure chronic ulcer of other part of left foot with unspecified severity (2) CHF (congestive heart failure) Assessment/Plan: Dose of IV lasix redued Monitor electrolytes Code(s): I50.9 - HEART FAILURE, UNSPECIFIED (3) Acute on chronic renal failure Assessment/Plan: As per renal Cont to monitor Monitor BUN/creatinine Code(s): N17.9 - ACUTE KIDNEY FAILURE, UNSPECIFIED; N18.9 - CHRONIC KIDNEY DISEASE, UNSPECIFIED (4) Pneumonia Assessment/Plan: Cont augmentin CXR 05/18/20 showed RUL infiltrate and ?LLL infiltrate w/ congestive changes Repeat COVID testing was negative Code(s): J18.9 - PNEUMONIA, UNSPECIFIED ORGANISM (5) Atrial fibrillation Assessment/Plan: renal dosing of eliquis Rate controlled Code(s): I48.91 - UNSPECIFIED ATRIAL FIBRILLATION (6) Hx of CABG Code(s): Z95.1 - PRESENCE OF AORTOCORONARY BYPASS GRAFT (7) PAD (peripheral artery disease) Code(s): I73.9 - PERIPHERAL VASCULAR DISEASE, UNSPECIFIED (8) Hyperlipidemia Code(s): E78.5 - HYPERLIPIDEMIA, UNSPECIFIED Qualifiers: Hyperlipidemia type: pure hypercholesterolemia Qualified Code(s): E78.00 - Pure hypercholesterolemia, unspecified; E78.0 - Pure hypercholesterolemia (9) Hypertension Code(s): I10 - ESSENTIAL (PRIMARY) HYPERTENSION Qualifiers: Hypertension type: essential hypertension Qualified Code(s): I10 - Essential (primary) hypertension
[2020-05-22 22:20] VITALS: BMI 28.8
[2020-05-23] MEDS ORDERED: FUROSEMIDE 40 MG/4 ML INJECTABLE VIAL IVPUSH SCH ×2 (06:00→10:00)
[2020-05-23] MEDS: INSULIN SLIDING SCALE (NOVOLOG) 1 VIAL SQ SCH ×4 (06:07→22:10)
[2020-05-23] MEDS ORDERED: INSULIN (NOVOLOG MIX 70/30) 100 UNITS/ML MDV SQ ONE (06:45)
[2020-05-23] MEDS: INSULIN (NOVOLOG MIX 70/30) 100 UNITS/ML MDV SQ SCH ×2 (06:53→17:12)
[2020-05-23] MEDS: ALBUTEROL SO4 2.5/IPRATROPIUM 0.5 INH SOL 3 ML VIAL.NEB. NEB SCH ×4 (07:30→20:20)
[2020-05-23 08:25] LABS: BASO % 0.1 % (0-2.0); HEMATOCRIT 24.7 % (35.4-49); HEMOGLOBIN 7.9 GM/dL (11.7-16.9); LYMPH % 4.7 % (8-40); MCH 27.1 pg (25.7-33.7); MEAN CELL VOLUME 84.8 fl (80-96); MEAN PLT VOLUME 8.9 fl (7.5-11.1); MONO % 3.4 % (3.8-10.2); NEUT % 91.8 % (42.8-82.8); PLATELET COUNT 387 K/MM3 (134-434); RBC 2.91 M/mm3 (4.00-5.60); RDW 15.8 % (11.9-15.9); WHITE BLOOD COUNT 10.2 K/mm3 (4.0-10.0)
[2020-05-23 08:58] LABS: ALBUMIN 2.1 g/dl (3.4-5.0); BILIRUBIN,TOTAL 0.5 mg/dL (0.2-1); CALCIUM 7.7 mg/dL (8.5-10.1); CREATININE 6.8 mg/dL (0.55-1.3); MAGNESIUM 2.6 mg/dL (1.8-2.4); PHOSPHOROUS 7.1 mg/dL (2.5-4.9); POTASSIUM 4.5 mmol/L (3.5-5.1); TOT PROT 5.6 g/dl (6.4-8.2)
[2020-05-23 09:02] LABS: BLOOD UREA NITROGEN 122.2 mg/dL (7-18)
--- NOTE | 2020-05-23 09:27 | PN ---
Progress Note (short form) - Note Progress Note: VASCULAR SURGERY Patient well known to Dr. Garcia as he [facility]. CKD Stage 5 but not on HD. (followed by Dr. Shy Castro/Nephro). Diabetic nephropathy. MRI shows no evidence of OM. Last Vital Signs Temp Pulse Resp BP Pulse Ox 97.8 F 71 18 154/71 97 05/23/20 05:00 05/23/20 05:00 05/22/20 22:00 05/23/20 05:00 05/22/20 22:00 CBC, BMP 05/23/20 07:40 05/23/20 07:40 Gen: alert. nad LLE: chronic diabetic ulcer to lateral aspect. calloused. not indurated. no signs of infection/cellulitis. not boggy. not indurated. no purulent drainage. no lymphatic streaking. Foot is warm. Capr refill < 3 sec. Palpable DP and PT Problem List - Problems (1) Diabetic ulcer of left foot Assessment/Plan: - f/u with Dr. Garcia in [facility] for continued out-patient management of LEFT foot wound - HBO as out-patient - No planned Vascular intervention - f/u w/ Nephrology for CKD stage 5 - Cont medical management - Reconsult prn On behalf of Dr. Garcia, thank you for the opportunity to participate in your patient's care Code(s): E11.621 - TYPE 2 DIABETES MELLITUS WITH FOOT ULCER; L97.529 - NON- PRESSURE CHRONIC ULCER OTH PRT LEFT FOOT W UNSP SEVERITY Qualifiers: Diabetic foot ulcer location: unspecified part of foot Diabetes mellitus type: type 2 Non-pressure ulcer stage: unspecified non-pressure ulcer stage Qualified Code(s): E11.621 - Type 2 diabetes mellitus with foot ulcer; L97.529 - Non-pressure chronic ulcer of other part of left foot with unspecified severity (2) Atrial fibrillation Code(s): I48.91 - UNSPECIFIED ATRIAL FIBRILLATION (3) Pneumonia Code(s): J18.9 - PNEUMONIA, UNSPECIFIED ORGANISM (4) CAD (coronary artery disease) Code(s): I25.10 - ATHSCL HEART DISEASE OF [place] CORONARY ARTERY W/O ANG PCTRS Qualifiers: Coronary Disease-Associated Artery/Lesion type: [place] artery [place] vs. transplanted heart: [place] heart Associated angina: without angina Qualified Code(s): I25.10 - Atherosclerotic heart disease of [place] coronary artery without angina pectoris (5) Hyperlipidemia Code(s): E78.5 - HYPERLIPIDEMIA, UNSPECIFIED Qualifiers: Hyperlipidemia type: pure hypercholesterolemia Qualified Code(s): E78.00 - Pure hypercholesterolemia, unspecified; E78.0 - Pure hypercholesterolemia (6) Hypertension Code(s): I10 - ESSENTIAL (PRIMARY) HYPERTENSION Qualifiers: Hypertension type: essential hypertension Qualified Code(s): I10 - Essential (primary) hypertension (7) PVD (peripheral vascular disease) Code(s): I73.9 - PERIPHERAL VASCULAR DISEASE, UNSPECIFIED
[2020-05-23] MEDS: DULoxetine HCL 20 MG CAPSULE.DR PO SCH (09:44)
[2020-05-23] MEDS: INSULIN (LEVEMIR) 100 UNITS/ML UNITS SQ SCH ×3 (09:44→23:37)
[2020-05-23] MEDS: GABAPENTIN 100 MG CAPSULE PO SCH ×2 (09:44→22:08)
[2020-05-23] MEDS: APIXABAN 2.5 MG TABLET PO SCH ×2 (09:44→22:09)
[2020-05-23] MEDS: CALCIUM 500MG/VIT-D 200 UNITS COMBO TABLET (FP) PO SCH (09:44)
[2020-05-23] MEDS: amLODIPine BESYLATE 5 MG TABLET (FP) PO SCH (09:44)
[2020-05-23] MEDS: AMOX TR/POT CLAV 250MG/125MG TABLETS PO SCH ×2 (09:44→17:13)
[2020-05-23] MEDS: PANTOPRAZOLE 40 MG TABLET PO SCH (09:44)
[2020-05-23] MEDS: metoPROLOL SUCCINATE 25 MG TAB.SR.24H (FP) PO SCH (09:44)
[2020-05-23] MEDS: ASPIRIN COATED 81 MG TABLET.EC PO SCH (09:45)
[2020-05-23] MEDS: guaiFENesin/D-METHORPHAN TAB.ER.12H PO SCH ×2 (09:45→22:09)
[2020-05-23] MEDS ORDERED: predniSONE 20 MG TABLET (UD) PO SCH (10:00)
[2020-05-23 11:21] LABS: ANISOCYTOSIS 0; MACROCYTOSIS 0; PLATELET ESTIMATE NORMAL
[2020-05-23] MEDS ORDERED: INSULIN (NOVOLOG) ASPART 100 UNITS/ML 10ML VIAL ONE ×2 (11:40→16:55)
--- NOTE | 2020-05-23 12:29 | PN ---
Progress Note, Physician History of Present Illness: no new issues - Current Medication List Current Medications: Active Medications Albuterol Sulfate (Ventolin 0.083% Nebulizer Soln -) 1 amp NEB Q4H PRN PRN Reason: SHORT OF BREATH/WHEEZING Albuterol/Ipratropium (Duoneb -) 1 amp NEB RQID [facility] Last Admin: 05/23/20 11:30 Dose: 1 amp Documented by: Amlodipine Besylate (Norvasc -) 5 mg PO DAILY [facility] Last Admin: 05/23/20 09:44 Dose: 5 mg Documented by: Amoxicillin/Clavulanate Potassium (Augmentin - 250mg Tablet) 1 tab PO BID@0800,1730 [facility] Last Admin: 05/23/20 09:44 Dose: 1 tab Documented by: Apixaban (Eliquis -) 2.5 mg PO BID [facility] Last Admin: 05/23/20 09:44 Dose: 2.5 mg Documented by: Aspirin (Ecotrin -) 81 mg PO DAILY [facility] Last Admin: 05/23/20 09:45 Dose: 81 mg Documented by: Atorvastatin Calcium (Lipitor -) 20 mg PO [facility] Last Admin: 05/22/20 21:23 Dose: 20 mg Documented by: Calcium Carbonate/Cholecalciferol (Os-Osvaldo 500+D -) 1 tab PO DAILY [facility] Last Admin: 05/23/20 09:44 Dose: 1 tab Documented by: Duloxetine HCl (Cymbalta -) 40 mg PO DAILY [facility] Last Admin: 05/23/20 09:44 Dose: 40 mg Documented by: Gabapentin (Neurontin -) 100 mg PO BID [facility] Last Admin: 05/23/20 09:44 Dose: 100 mg Documented by: Guaifenesin (Robitussin -) 10 ml PO Q4H PRN PRN Reason: COUGH Last Admin: 05/21/20 21:17 Dose: 10 ml Documented by: Guaifenesin (Mucinex Dm -) 2 tablet PO BID [facility] Last Admin: 05/23/20 09:45 Dose: 2 tablet Documented by: Insulin Aspart (Novolog Vial Sliding Scale -) 1 vial SQ [facility]; Protocol Last Admin: 05/23/20 06:07 Dose: 9 units Documented by: Insulin Aspart ([facility]olog Mix 70/30 Vial) [facility] Insulin Detemir (Levemir Vial) 20 units SQ BID [facility] Last Admin: 05/23/20 09:44 Dose: 20 units Documented by: Metoprolol Succinate (Toprol Xl -) 25 mg PO DAILY [facility] Last Admin: 05/23/20 09:44 Dose: 25 mg Documented by: Pantoprazole Sodium (Protonix -) 40 mg PO DAILY [facility] Last Admin: 05/23/20 09:44 Dose: 40 mg Documented by: Prednisone (Deltasone -) 40 mg PO DAILY [facility] Last Admin: 05/23/20 09:45 Dose: 40 mg Documented by: Sevelamer Carbonate (Renvela -) 800 mg PO [facility] Zolpidem Tartrate (Ambien -) 5 mg PO HS PRN PRN Reason: INSOMNIA Last Admin: 05/22/20 21:23 Dose: 5 mg Documented by: - Objective Vital Signs: Vital Signs Temperature 97.8 F 05/23/20 05:00 Pulse Rate 94 H 05/23/20 10:00 Respiratory Rate 20 05/23/20 10:00 Blood Pressure 125/69 05/23/20 10:00 O2 Sat by Pulse Oximetry (%) 94 L 05/23/20 10:00 Constitutional: Yes: No Distress, Calm Cardiovascular: Yes: S1, S2 Respiratory: Yes: Regular, CTA Bilaterally Gastrointestinal: Yes: Normal Bowel Sounds, Soft Musculoskeletal: Yes: WNL Extremities: Yes: Other Neurological: Yes: Alert, Oriented Psychiatric: Yes: Alert, Oriented Labs: CBC, BMP 05/23/20 07:40 05/23/20 07:40 INR, PTT INR 1.20 (0.83-1.09) H 05/12/20 14:48 Assessment/Plan Problem List - Problems (1) Acute congestive heart failure Code(s): I50.9 - HEART FAILURE, UNSPECIFIED (2) Atrial fibrillation Code(s): I48.91 - UNSPECIFIED ATRIAL FIBRILLATION (3) Diabetic ulcer of left foot Code(s): E11.621 - TYPE 2 DIABETES MELLITUS WITH FOOT ULCER; L97.529 - NON- PRESSURE CHRONIC ULCER OTH PRT LEFT FOOT W UNSP SEVERITY Qualifiers: Qualified Code(s): E11.621 - Type 2 diabetes mellitus with foot ulcer; L97.529 - Non-pressure chronic ulcer of other part of left foot with unspecified severity (4) Shortness of breath Code(s): R06.02 - SHORTNESS OF BREATH (5) Acute on chronic renal failure Code(s): N17.9 - ACUTE KIDNEY FAILURE, UNSPECIFIED; N18.9 - CHRONIC KIDNEY DISEASE, UNSPECIFIED (6) Diabetic foot infection Code(s): E11.628 - TYPE 2 DIABETES MELLITUS WITH OTHER SKIN COMPLICATIONS; L08.9 - LOCAL INFECTION OF THE SKIN AND SUBCUTANEOUS TISSUE, UNSP (7) Diabetic neuropathy Code(s): E11.40 - TYPE 2 DIABETES MELLITUS WITH DIABETIC NEUROPATHY, UNSP (8) Hx of CABG Code(s): Z95.1 - PRESENCE OF AORTOCORONARY BYPASS GRAFT (9) PAD (peripheral artery disease) Code(s): I73.9 - PERIPHERAL VASCULAR DISEASE, UNSPECIFIED (10) CAD (coronary artery disease) Code(s): I25.10 - ATHSCL HEART DISEASE OF [place] CORONARY ARTERY W/O ANG PCTRS Qualifiers: Qualified Code(s): I25.10 - Atherosclerotic heart disease of [place] coronary artery without angina pectoris (11) Hyperlipidemia Code(s): E78.5 - HYPERLIPIDEMIA, UNSPECIFIED Qualifiers: Qualified Code(s): E78.00 - Pure hypercholesterolemia, unspecified; E78.0 - Pure hypercholesterolemia (12) Hypertension Code(s): I10 - ESSENTIAL (PRIMARY) HYPERTENSION Qualifiers: Qualified Code(s): I10 - Essential (primary) hypertension Assessment/Plan Lt foot cellulitis - improved ? Otitis media - Eustachian tube dysfunction ? PNA Acute resp failure Acute on Chronic renal failure Acute on Chronic HF Uncontrolled DM with neuropathy Anemia CAD AFIB s/p CVA Obesity BOBY -- LLE erythema resolved/ ulcer dry, ? foreign body on imaging. Podiatry follow up. -- continue Augmentin x 1 more days -- continue wound care -- monitor vitals, O2 supplementation
[2020-05-23] MEDS: SEVELAMER CARBONATE 800 MG TAB (FP) PO SCH ×2 (12:56→17:13)
--- NOTE | 2020-05-23 13:12 | PN ---
Progress Note (short form) - Note Progress Note: Feels overall better today. No acute events overnight. Intake & Output 05/20/20 05/21/20 05/22/20 05/23/20 23:59 23:59 23:59 23:59 Intake Total 1630 810 800 50 Output Total 1050 400 Balance 580 410 800 50 Weight 198 lb 2 oz 204 lb 2 oz 207 lb 12.8 oz Last Vital Signs Temp Pulse Resp BP Pulse Ox 97.8 F 94 H 20 125/69 94 L 05/23/20 05:00 05/23/20 10:00 05/23/20 10:00 05/23/20 10:00 05/23/20 10:00 Active Medications Albuterol Sulfate (Ventolin 0.083% Nebulizer Soln -) 1 amp NEB Q4H PRN PRN Reason: SHORT OF BREATH/WHEEZING Albuterol/Ipratropium (Duoneb -) 1 amp NEB RQID [facility] Last Admin: 05/23/20 11:30 Dose: 1 amp Documented by: Amlodipine Besylate (Norvasc -) 5 mg PO DAILY [facility] Last Admin: 05/23/20 09:44 Dose: 5 mg Documented by: Amoxicillin/Clavulanate Potassium (Augmentin - 250mg Tablet) 1 tab PO BID@0800,1730 [facility] Last Admin: 05/23/20 09:44 Dose: 1 tab Documented by: Apixaban (Eliquis -) 2.5 mg PO BID [facility] Last Admin: 05/23/20 09:44 Dose: 2.5 mg Documented by: Aspirin (Ecotrin -) 81 mg PO DAILY [facility] Last Admin: 05/23/20 09:45 Dose: 81 mg Documented by: Atorvastatin Calcium (Lipitor -) 20 mg PO [facility] Last Admin: 05/22/20 21:23 Dose: 20 mg Documented by: Calcium Carbonate/Cholecalciferol (Os-Osvaldo 500+D -) 1 tab PO DAILY [facility] Last Admin: 05/23/20 09:44 Dose: 1 tab Documented by: Duloxetine HCl (Cymbalta -) 40 mg PO DAILY [facility] Last Admin: 05/23/20 09:44 Dose: 40 mg Documented by: Gabapentin (Neurontin -) 100 mg PO BID [facility] Last Admin: 05/23/20 09:44 Dose: 100 mg Documented by: Guaifenesin (Robitussin -) 10 ml PO Q4H PRN PRN Reason: COUGH Last Admin: 05/21/20 21:17 Dose: 10 ml Documented by: Guaifenesin (Mucinex Dm -) 2 tablet PO BID [facility] Last Admin: 05/23/20 09:45 Dose: 2 tablet Documented by: Insulin Aspart (Novolog Vial Sliding Scale -) 1 vial SQ ACHS [facility]; Protocol Last Admin: 05/23/20 12:56 Dose: 12 units Documented by: Insulin Aspart (Novolog Mix 70/30 Vial) 35 units SQ BIDAC [facility] Insulin Detemir (Levemir Vial) 20 units SQ BID [facility] Last Admin: 05/23/20 09:44 Dose: 20 units Documented by: Metoprolol Succinate (Toprol Xl -) 25 mg PO DAILY [facility] Last Admin: 05/23/20 09:44 Dose: 25 mg Documented by: Pantoprazole Sodium (Protonix -) 40 mg PO DAILY [facility] Last Admin: 05/23/20 09:44 Dose: 40 mg Documented by: Prednisone (Deltasone -) 40 mg PO DAILY [facility] Last Admin: 05/23/20 09:45 Dose: 40 mg Documented by: Sevelamer Carbonate (Renvela -) 800 mg PO TIDCM [facility] Last Admin: 05/23/20 12:56 Dose: 800 mg Documented by: Zolpidem Tartrate (Ambien -) 5 mg PO HS PRN PRN Reason: INSOMNIA Last Admin: 05/22/20 21:23 Dose: 5 mg Documented by: Gen: NAD Heart: RRR Lung: No wheeze, few scattered rhonchi Abd: soft, nontender Ext: no edema Laboratory Results - last 24 hr 05/22/20 05/22/20 05/22/20 14:40 16:58 21:19 WBC RBC Hgb Hct MCV MCH MCHC RDW Plt Count MPV Absolute Neuts (auto) Neutrophils % Neutrophils % (Manual) Band Neutrophils % Lymphocytes % Lymphocytes % (Manual) Monocytes % Monocytes % (Manual) Eosinophils % Eosinophils % (Manual) Basophils % Basophils % (Manual) Myelocytes % (Man) Promyelocytes % (Man) Blast Cells % (Manual) Nucleated RBC % Metamyelocytes Hypochromia Platelet Estimate Polychromasia Poikilocytosis Anisocytosis Microcytosis Macrocytosis Sodium 137 Potassium 4.3 Chloride 101 Carbon Dioxide 22 Anion Gap 14 BUN 110.8 H* Creatinine 6.7 H Est GFR (CKD-EPI)AfAm 8.76 Est GFR (CKD-EPI)NonAf 7.56 POC Glucometer 345 397 Random Glucose 283 H Calcium 8.0 L Phosphorus Magnesium Total Bilirubin AST ALT Alkaline Phosphatase Total Protein Albumin 05/23/20 05/23/20 05/23/20 05:56 07:40 07:40 WBC 10.2 H RBC 2.91 L Hgb 7.9 L Hct 24.7 L MCV 84.8 MCH 27.1 MCHC 32.0 RDW 15.8 Plt Count 387 D MPV 8.9 Absolute Neuts (auto) 9.4 H Neutrophils % 91.8 H Neutrophils % (Manual) 90.5 H Band Neutrophils % 0.0 Lymphocytes % 4.7 L D Lymphocytes % (Manual) 7.6 L D Monocytes % 3.4 L D Monocytes % (Manual) 0 L D Eosinophils % 0.0 D Eosinophils % (Manual) 0.0 Basophils % 0.1 Basophils % (Manual) 0.0 Myelocytes % (Man) 0 Promyelocytes % (Man) 0 Blast Cells % (Manual) 0 Nucleated RBC % 0 Metamyelocytes 2 D Hypochromia 0 Platelet Estimate Normal Polychromasia 0 Poikilocytosis 0 Anisocytosis 0 Microcytosis 0 Macrocytosis 0 Sodium 138 Potassium 4.5 Chloride 102 Carbon Dioxide 24 Anion Gap 12 BUN 122.2 H* Creatinine 6.8 H Est GFR (CKD-EPI)AfAm 8.61 Est GFR (CKD-EPI)NonAf 7.43 POC Glucometer 330 Random Glucose 324 H Calcium 7.7 L Phosphorus 7.1 H Magnesium 2.6 H Total Bilirubin 0.5 AST 9 L ALT 19 Alkaline Phosphatase 59 Total Protein 5.6 L Albumin 2.1 L 05/23/20 11:23 WBC RBC Hgb Hct MCV MCH MCHC RDW Plt Count MPV Absolute Neuts (auto) Neutrophils % Neutrophils % (Manual) Band Neutrophils % Lymphocytes % Lymphocytes % (Manual) Monocytes % Monocytes % (Manual) Eosinophils % Eosinophils % (Manual) Basophils % Basophils % (Manual) Myelocytes % (Man) Promyelocytes % (Man) Blast Cells % (Manual) Nucleated RBC % Metamyelocytes Hypochromia Platelet Estimate Polychromasia Poikilocytosis Anisocytosis Microcytosis Macrocytosis Sodium Potassium Chloride Carbon Dioxide Anion Gap BUN Creatinine Est GFR (CKD-EPI)AfAm Est GFR (CKD-EPI)NonAf POC Glucometer 335 Random Glucose Calcium Phosphorus Magnesium Total Bilirubin AST ALT Alkaline Phosphatase Total Protein Albumin A/P Acute on Chronic Diastolic Heart Failure Acute on Chronic Renal Failure Cellulitis Pneumonia CAD s/p CABG HTN DM PAD - Prednisone taper - inhaled bronchodilators - Can follow in office in [address] Gibbs
--- NOTE | 2020-05-23 16:08 | PN ---
Progress Note, Physician Chief Complaint: Leg ulcer History of Present Illness: Seen and examined at the bedside awake and alert reports feeling much better denies any sob today making urine . - Current Medication List Current Medications: Active Medications Albuterol Sulfate (Ventolin 0.083% Nebulizer Soln -) 1 amp NEB Q4H PRN PRN Reason: SHORT OF BREATH/WHEEZING Albuterol/Ipratropium (Duoneb -) 1 amp NEB RQID [facility] Last Admin: 05/23/20 11:30 Dose: 1 amp Documented by: Amlodipine Besylate (Norvasc -) 5 mg PO DAILY [facility] Last Admin: 05/23/20 09:44 Dose: 5 mg Documented by: Amoxicillin/Clavulanate Potassium (Augmentin - 250mg Tablet) 1 tab PO BID@0800,1730 [facility] Last Admin: 05/23/20 09:44 Dose: 1 tab Documented by: Apixaban (Eliquis -) 2.5 mg PO BID [facility] Last Admin: 05/23/20 09:44 Dose: 2.5 mg Documented by: Aspirin (Ecotrin -) 81 mg PO DAILY [facility] Last Admin: 05/23/20 09:45 Dose: 81 mg Documented by: Atorvastatin Calcium (Lipitor -) 20 mg PO HS [facility] Last Admin: 05/22/20 21:23 Dose: 20 mg Documented by: Calcium Carbonate/Cholecalciferol (Os-Osvaldo 500+D -) 1 tab PO DAILY [facility] Last Admin: 05/23/20 09:44 Dose: 1 tab Documented by: Duloxetine HCl (Cymbalta -) 40 mg PO DAILY [facility] Last Admin: 05/23/20 09:44 Dose: 40 mg Documented by: Gabapentin (Neurontin -) 100 mg PO BID [facility] Last Admin: 05/23/20 09:44 Dose: 100 mg Documented by: Guaifenesin (Robitussin -) 10 ml PO Q4H PRN PRN Reason: COUGH Last Admin: 05/21/20 21:17 Dose: 10 ml Documented by: Guaifenesin (Mucinex Dm -) 2 tablet PO BID [facility] Last Admin: 05/23/20 09:45 Dose: 2 tablet Documented by: Sodium Chloride (Normal Saline -) 1,000 mls @ 83 mls/hr IV ASDIR [facility] Insulin Aspart (Novolog Vial Sliding Scale -) 1 vial SQ ACHS [facility]; Protocol Last Admin: 05/23/20 12:56 Dose: 12 units Documented by: Insulin Aspart ([facility] 70/30 [facility]) [facility] Detemir (Levemir Vial) 20 units SQ BID [facility] Last Admin: 05/23/20 09:44 Dose: 20 units Documented by: Metoprolol Succinate (Toprol Xl -) 25 mg PO DAILY [facility] Last Admin: 05/23/20 09:44 Dose: 25 mg Documented by: Pantoprazole Sodium (Protonix -) 40 mg PO DAILY [facility] Last Admin: 05/23/20 09:44 Dose: 40 mg Documented by: Prednisone (Deltasone -) 40 mg PO DAILY [facility] Last Admin: 05/23/20 09:45 Dose: 40 mg Documented by: Sevelamer Carbonate (Renvela -) 800 mg PO TIDCM [facility] Last Admin: 05/23/20 12:56 Dose: 800 mg Documented by: - Objective Vital Signs: Vital Signs Temperature 97.7 F 05/23/20 14:43 Pulse Rate 70 05/23/20 14:43 Respiratory Rate 05/23/20 14:43 Blood Pressure 131/59 L 05/23/20 14:43 O2 Sat by Pulse Oximetry (%) 94 L 05/23/20 10:00 Constitutional: Yes: No Distress Eyes: Yes: Occular Prosthesis Neck: Yes: Supple Cardiovascular: Yes: Regular Rate and Rhythm Respiratory: Yes: Regular Gastrointestinal: Yes: Soft Genitourinary: No: Bladder Distention Extremities: No: Cyanosis Edema: No Neurological: Yes: Alert, Oriented Labs: CBC, BMP 05/23/20 07:40 05/23/20 07:40 INR, PTT INR 1.20 (0.83-1.09) H 05/12/20 14:48 Assessment/Plan 69 year old male with PMHx of CKD stage 5 (Last outpatient Cr 5), hypertension, DM, PVD, CAD s/p CABG who was sent in from the wound care clinic with LE wound and found to have suspected cellulitis. 1. CKD stage 5 not yet on dialysis 2. LE wound 3. Cellulitis of the lower extremity 4. Hypertension 5. DM 6. Chronic anemia BUN/Cr remain high as as a result of IV Lasix + steroids (BUN) no overt uremia, acidosis or hyperkalemia to warrant emergent [employer] clinically improved and w/o gross evidence of volume overload Pt responded well to steroids and B-agonists as per pulmonary holding diuretics for now but on discharge can resume Lasix 40mg daily with nina se monitoring of renal function and volume status Will give NS x 14 hours to help improve volume status prior to discharge continue to maintain a low sodium diet Trend renal function and electrolytes daily if renal function stable or improved can anticipate discharge with close monitoring of renal function as an outpatient in our office. Jonah Painting DO
--- NOTE | 2020-05-23 21:20 | PN ---
Progress Note, Physician History of Present Illness: No new complaints - Current Medication List Current Medications: Active Medications Albuterol Sulfate (Ventolin 0.083% Nebulizer Soln -) 1 amp NEB Q4H PRN PRN Reason: SHORT OF BREATH/WHEEZING Albuterol/Ipratropium (Duoneb -) 1 amp NEB RQID [facility] Last Admin: 05/23/20 17:01 Dose: Not Given Documented by: Amlodipine Besylate (Norvasc -) 5 mg PO DAILY [facility] Last Admin: 05/23/20 09:44 Dose: 5 mg Documented by: Amoxicillin/Clavulanate Potassium (Augmentin - 250mg Tablet) 1 tab PO BID@0800,1730 [facility] Last Admin: 05/23/20 17:13 Dose: 1 tab Documented by: Apixaban (Eliquis -) 2.5 mg PO BID [facility] Last Admin: 05/23/20 09:44 Dose: 2.5 mg Documented by: Aspirin (Ecotrin -) 81 mg PO DAILY [facility] Last Admin: 05/23/20 09:45 Dose: 81 mg Documented by: Atorvastatin Calcium (Lipitor -) 20 mg PO HS [facility] Last Admin: 05/22/20 21:23 Dose: 20 mg Documented by: Calcium Carbonate/Cholecalciferol (Os-Osvaldo 500+D -) 1 tab PO DAILY [facility] Last Admin: 05/23/20 09:44 Dose: 1 tab Documented by: Duloxetine HCl (Cymbalta -) 40 mg PO DAILY [facility] Last Admin: 05/23/20 09:44 Dose: 40 mg Documented by: Gabapentin (Neurontin -) 100 mg PO BID [facility] Last Admin: 05/23/20 09:44 Dose: 100 mg Documented by: Guaifenesin (Robitussin -) 10 ml PO Q4H PRN PRN Reason: COUGH Last Admin: 05/21/20 21:17 Dose: 10 ml Documented by: Guaifenesin (Mucinex Dm -) 2 tablet PO BID [facility] Last Admin: 05/23/20 09:45 Dose: 2 tablet Documented by: Sodium Chloride (Normal Saline -) 1,000 mls @ 83 mls/hr IV ASDIR [facility] Insulin Aspart (Novolog Vial Sliding Scale -) 1 vial SQ ACHS [facility]; Protocol Last Admin: 05/23/20 17:13 Dose: 12 units Documented by: Insulin Aspart (Novolog Mix 70/30 Vial) [facility] Last Admin: 05/23/20 17:12 Dose: 35 units Documented by: Insulin Detemir (Levemir Vial) 20 units SQ BID [facility] Last Admin: 05/23/20 09:44 Dose: 20 units Documented by: Metoprolol Succinate (Toprol Xl -) 25 mg PO DAILY [facility] Last Admin: 05/23/20 09:44 Dose: 25 mg Documented by: Pantoprazole Sodium (Protonix -) 40 mg PO DAILY [facility] Last Admin: 05/23/20 09:44 Dose: 40 mg Documented by: Prednisone (Deltasone -) 20 mg PO DAILY [facility] Sevelamer Carbonate (Renvela -) 800 mg PO TIDCM [facility] Last Admin: 05/23/20 17:13 Dose: 800 mg Documented by: - Objective Vital Signs: Vital Signs Temperature 97.4 F L 05/23/20 19:44 Pulse Rate 74 05/23/20 19:44 Respiratory Rate 20 05/23/20 19:44 Blood Pressure 128/65 05/23/20 19:44 O2 Sat by Pulse Oximetry (%) 94 L 05/23/20 10:00 Cardiovascular: Yes: WNL, Regular Rate and Rhythm Respiratory: Yes: WNL, Regular, CTA Bilaterally Gastrointestinal: Yes: WNL, Normal Bowel Sounds, Soft Labs: CBC, BMP 05/23/20 07:40 05/23/20 07:40 INR, PTT INR 1.20 (0.83-1.09) H 05/12/20 14:48 Problem List - Problems (1) Diabetic ulcer of left foot Assessment/Plan: Pt now on augmentin Wound culture (+) for enterobacter/Grp D strept MRI did not show any osteo but ?foreign body lt foot XRAY Lt foot ?foreign body 5th toe Code(s): E11.621 - TYPE 2 DIABETES MELLITUS WITH FOOT ULCER; L97.529 - NON- PRESSURE CHRONIC ULCER OTH PRT LEFT FOOT W UNSP SEVERITY Qualifiers: Diabetic foot ulcer location: unspecified part of foot Diabetes mellitus type: type 2 Non-pressure ulcer stage: unspecified non-pressure ulcer stage Qualified Code(s): E11.621 - Type 2 diabetes mellitus with foot ulcer; L97.529 - Non-pressure chronic ulcer of other part of left foot with unspecified severity (2) CHF (congestive heart failure) Assessment/Plan: Lasix NC'ed Monitor electrolytes Code(s): I50.9 - HEART FAILURE, UNSPECIFIED (3) Acute on chronic renal failure Assessment/Plan: Increase bun/creatinine As per renal Pt given gentle IV hydration Cont to monitor Monitor BUN/creatinine Code(s): N17.9 - ACUTE KIDNEY FAILURE, UNSPECIFIED; N18.9 - CHRONIC KIDNEY DISEASE, UNSPECIFIED (4) Pneumonia Assessment/Plan: Cont augmentin CXR 05/18/20 showed RUL infiltrate and ?LLL infiltrate w/ congestive changes Repeat COVID testing was negative Code(s): J18.9 - PNEUMONIA, UNSPECIFIED ORGANISM (5) Atrial fibrillation Assessment/Plan: renal dosing of eliquis Rate controlled Code(s): I48.91 - UNSPECIFIED ATRIAL FIBRILLATION (6) Hx of CABG Code(s): Z95.1 - PRESENCE OF AORTOCORONARY BYPASS GRAFT (7) PAD (peripheral artery disease) Code(s): I73.9 - PERIPHERAL VASCULAR DISEASE, UNSPECIFIED (8) Hyperlipidemia Code(s): E78.5 - HYPERLIPIDEMIA, UNSPECIFIED Qualifiers: Hyperlipidemia type: pure hypercholesterolemia Qualified Code(s): E78.00 - Pure hypercholesterolemia, unspecified; E78.0 - Pure hypercholesterolemia (9) Hypertension Code(s): I10 - ESSENTIAL (PRIMARY) HYPERTENSION Qualifiers: Hypertension type: essential hypertension Qualified Code(s): I10 - Essential (primary) hypertension
[2020-05-23] MEDS: ATORVASTATIN CA 20 MG TABLET (FP) PO SCH (22:09)
[2020-05-23] MEDS ORDERED: ZOLPIDEM TARTRATE 5 MG TABLET PO ONE (23:45)
[2020-05-24] MEDS: INSULIN (LEVEMIR) 100 UNITS/ML UNITS SQ SCH (07:01)
[2020-05-24] MEDS: INSULIN (NOVOLOG MIX 70/30) 100 UNITS/ML MDV SQ SCH (07:03)
[2020-05-24] MEDS: INSULIN SLIDING SCALE (NOVOLOG) 1 VIAL SQ SCH ×2 (07:10→11:42)
[2020-05-24] MEDS ORDERED: SODIUM CHLORIDE 1,000 ML IV SCH (08:00)
[2020-05-24] MEDS: SEVELAMER CARBONATE 800 MG TAB (FP) PO SCH ×2 (08:12→11:42)
[2020-05-24] MEDS: ALBUTEROL SO4 2.5/IPRATROPIUM 0.5 INH SOL 3 ML VIAL.NEB. NEB SCH ×2 (08:38→11:48)
[2020-05-24 09:05] LABS: CALCIUM 7.5 mg/dL (8.5-10.1); CREATININE 6.3 mg/dL (0.55-1.3); POTASSIUM 3.9 mmol/L (3.5-5.1)
[2020-05-24 09:13] LABS: BLOOD UREA NITROGEN 120.5 mg/dL (7-18)
[2020-05-24] MEDS: GABAPENTIN 100 MG CAPSULE PO SCH (09:39)
[2020-05-24] MEDS: DULoxetine HCL 20 MG CAPSULE.DR PO SCH (09:39)
[2020-05-24] MEDS: metoPROLOL SUCCINATE 25 MG TAB.SR.24H (FP) PO SCH (09:40)
[2020-05-24] MEDS: ASPIRIN COATED 81 MG TABLET.EC PO SCH (09:40)
[2020-05-24] MEDS: APIXABAN 2.5 MG TABLET PO SCH (09:40)
[2020-05-24] MEDS: amLODIPine BESYLATE 5 MG TABLET (FP) PO SCH (09:40)
[2020-05-24] MEDS: CALCIUM 500MG/VIT-D 200 UNITS COMBO TABLET (FP) PO SCH (09:40)
[2020-05-24] MEDS: guaiFENesin/D-METHORPHAN TAB.ER.12H PO SCH (09:40)
[2020-05-24] MEDS: PANTOPRAZOLE 40 MG TABLET PO SCH (09:40)
[2020-05-24] MEDS ORDERED: predniSONE 20 MG TABLET (UD) PO SCH (10:00)
[2020-05-24] MEDS ORDERED: SODIUM BICARBONATE 650 MG TABLET PO SCH (10:00)
--- NOTE | 2020-05-24 10:14 | PN ---
Progress Note, Physician History of Present Illness: pulmonary alert,comfortable,-resp distress - Current Medication List Current Medications: Active Medications Albuterol Sulfate (Ventolin 0.083% Nebulizer Soln -) 1 amp NEB Q4H PRN PRN Reason: SHORT OF BREATH/WHEEZING Albuterol/Ipratropium (Duoneb -) 1 amp NEB RQID [facility] Last Admin: 05/24/20 08:38 Dose: Not Given Documented by: Amlodipine Besylate (Norvasc -) 5 mg PO DAILY [facility] Last Admin: 05/24/20 09:40 Dose: 5 mg Documented by: Apixaban (Eliquis -) 2.5 mg PO BID [facility] Last Admin: 05/24/20 09:40 Dose: 2.5 mg Documented by: Aspirin (Ecotrin -) 81 mg PO DAILY [facility] Last Admin: 05/24/20 09:40 Dose: 81 mg Documented by: Atorvastatin Calcium (Lipitor -) 20 mg PO HS [facility] Last Admin: 05/23/20 22:09 Dose: 20 mg Documented by: Calcium Carbonate/Cholecalciferol (Os-Osvaldo 500+D -) 1 tab PO DAILY [facility] Last Admin: 05/24/20 09:40 Dose: 1 tab Documented by: Duloxetine HCl (Cymbalta -) 40 mg PO DAILY [facility] Last Admin: 05/24/20 09:39 Dose: 40 mg Documented by: Gabapentin (Neurontin -) 100 mg PO BID [facility] Last Admin: 05/24/20 09:39 Dose: 100 mg Documented by: Guaifenesin (Robitussin -) 10 ml PO Q4H PRN PRN Reason: COUGH Last Admin: 05/21/20 21:17 Dose: 10 ml Documented by: Guaifenesin (Mucinex Dm -) 2 tablet PO BID [facility] Last Admin: 05/24/20 09:40 Dose: 2 tablet Documented by: Insulin Aspart (Novolog Vial Sliding Scale -) 1 vial SQ ACHS [facility]; Protocol Last Admin: 05/24/20 07:10 Dose: 7 units Documented by: Insulin Aspart (Novolog Mix 70/30 Vial) 35 units SQ BIDAC [facility] Last Admin: 05/24/20 07:03 Dose: 35 units Documented by: Insulin Detemir (Levemir Vial) 30 units SQ BID@0700,2200 [facility] Last Admin: 05/24/20 07:01 Dose: 30 units Documented by: Metoprolol Succinate (Toprol Xl -) 25 mg PO DAILY [facility] Last Admin: 05/24/20 09:40 Dose: 25 mg Documented by: Pantoprazole Sodium (Protonix -) 40 mg PO DAILY [facility] Last Admin: 05/24/20 09:40 Dose: 40 mg Documented by: Prednisone (Deltasone -) 20 mg PO DAILY [facility] Last Admin: 05/24/20 09:40 Dose: 20 mg Documented by: Sevelamer Carbonate (Renvela -) 800 mg PO TIDCM [facility] Last Admin: 05/24/20 08:12 Dose: 800 mg Documented by: Sodium Bicarbonate (Sodium Bicarbonate -) 650 mg PO DAILY [facility] Last Admin: 05/24/20 09:40 Dose: 650 mg Documented by: - Objective Vital Signs: Vital Signs Temperature 98.3 F 05/24/20 05:00 Pulse Rate 66 05/24/20 05:00 Respiratory Rate 20 05/23/20 22:00 Blood Pressure 131/60 05/24/20 05:00 O2 Sat by Pulse Oximetry (%) 96 05/23/20 22:00 Constitutional: Yes: Well Nourished, Calm Eyes: Yes: WNL HENT: Yes: WNL Neck: Yes: WNL Cardiovascular: Yes: Pulse Irregular, S1, S2 Respiratory: Yes: CTA Bilaterally Gastrointestinal: Yes: Normal Bowel Sounds, Soft Extremities: Yes: WNL Edema: No Labs: CBC, BMP 05/23/20 07:40 05/24/20 08:15 INR, PTT INR 1.20 (0.83-1.09) H 05/12/20 14:48 Problem List - Problems (1) Atrial fibrillation Code(s): I48.91 - UNSPECIFIED ATRIAL FIBRILLATION (2) Diabetic ulcer of left foot Code(s): E11.621 - TYPE 2 DIABETES MELLITUS WITH FOOT ULCER; L97.529 - NON- PRESSURE CHRONIC ULCER OTH PRT LEFT FOOT W UNSP SEVERITY Qualifiers: Diabetic foot ulcer location: unspecified part of foot Diabetes mellitus t ype: type 2 Non-pressure ulcer stage: unspecified non-pressure ulcer stage Qualified Code(s): E11.621 - Type 2 diabetes mellitus with foot ulcer; L97.529 - Non-pressure chronic ulcer of other part of left foot with unspecified severity (3) Acute kidney injury superimposed on CKD Code(s): N17.9 - ACUTE KIDNEY FAILURE, UNSPECIFIED; N18.9 - CHRONIC KIDNEY DISEASE, UNSPECIFIED (4) CHF (congestive heart failure) Code(s): I50.9 - HEART FAILURE, UNSPECIFIED (5) Hx of CABG Code(s): Z95.1 - PRESENCE OF AORTOCORONARY BYPASS GRAFT (6) Hypertension Code(s): I10 - ESSENTIAL (PRIMARY) HYPERTENSION Qualifiers: Hypertension type: essential hypertension Qualified Code(s): I10 - Essential (primary) hypertension (7) PVD (peripheral vascular disease) Code(s): I73.9 - PERIPHERAL VASCULAR DISEASE, UNSPECIFIED (8) Shortness of breath Code(s): R06.02 - SHORTNESS OF BREATH (9) Acute congestive heart failure Code(s): I50.9 - HEART FAILURE, UNSPECIFIED Assessment/Plan Assessment/Plan Acute on Chronic Diastolic Heart Failure Acute on Chronic Renal Failure worsening Cellulitis r/o Pneumonia CAD s/p CABG HTN DM PAD - ? hd as per renal - monitor urine output, creatinine - O2 to keep SpO2 >90% - inhaled bronchodilators - antibiotics - monitor CXR DR ELIAS
--- NOTE | 2020-05-24 10:19 | PN ---
Progress Note, Physician Chief Complaint: Pt A&Ox3; no chest pain, LE pain. + expiratory wheezing. History of Present Illness: Mr. Red is a 69 year old white male with PMHx of CKD stage 5, hypertension, DM (insulin pump), PVD, CAD s/p CABG 2015 (no hx OR), PAD-->LLE stent 2017 (Dr. Carolyn Garcia), CVA ("three TIAs", with residual mild left-sided weakness), s/p Rt Carotid endarterectomy 2015, diastolic CHF, s/p atrial "flutter"-->ablation Rx 06/2019 at [facility] (now on metoprolol and apixaban), anemia, elevated TNI since at least 2017, obesity (s/p gastric bypass surgery; weighed 285 lbs before the surgery), who was sent in from the wound care clinic with LE (dorsum of left foot) wound, and found to have suspected cellulitis. He says he was told he would "need surgery" (he says he has been walking regularly, and that the wound does not impede this). Seen and examined at the bedside. Pt follows with Dr. Shy Brown as an outpatient for CKD, was last seen by him May 03. He offers no acute complaints at this time. No SOB, CP, fever, chills, N/V/D, flank pain, dysuria or frequency. Making urine. No leg swelling. PMD: Dr. Joaquín Adam Felt Hat Pouncing Operator Hand: Dr. James, [facility] Surgical Hx: spinal disk replacement kidney stone removal/stent CABG 2015 bariatric surgery 04/19 CEA (R) 12/22 EPS: ablation of atrial flutter 06/21 berto LE laser vein surgery - Current Medication List Current Medications: Active Medications Albuterol Sulfate (Ventolin 0.083% Nebulizer Soln -) 1 amp NEB Q4H PRN PRN Reason: SHORT OF BREATH/WHEEZING Albuterol/Ipratropium (Duoneb -) 1 amp NEB RQID [facility] Last Admin: 05/24/20 08:38 Dose: Not Given Documented by: Amlodipine Besylate (Norvasc -) 5 mg PO DAILY [facility] Last Admin: 05/24/20 09:40 Dose: 5 mg Documented by: Apixaban (Eliquis -) 2.5 mg PO BID [facility] Last Admin: 05/24/20 09:40 Dose: 2.5 mg Documented by: Aspirin (Ecotrin -) 81 mg PO DAILY [facility] Last Admin: 05/24/20 09:40 Dose: 81 mg Documented by: Atorvastatin Calcium (Lipitor -) 20 mg PO HS [facility] Last Admin: 05/23/20 22:09 Dose: 20 mg Documented by: Calcium Carbonate/Cholecalciferol (Os-Osvaldo 500+D -) 1 tab PO DAILY [facility] Last Admin: 05/24/20 09:40 Dose: 1 tab Documented by: Duloxetine HCl (Cymbalta -) 40 mg PO DAILY [facility] Last Admin: 05/24/20 09:39 Dose: 40 mg Documented by: Gabapentin (Neurontin -) 100 mg PO BID [facility] Last Admin: 05/24/20 09:39 Dose: 100 mg Documented by: Guaifenesin (Robitussin -) 10 ml PO Q4H PRN PRN Reason: COUGH Last Admin: 05/21/20 21:17 Dose: 10 ml Documented by: Guaifenesin (Mucinex Dm -) 2 tablet PO BID [facility] Last Admin: 05/24/20 09:40 Dose: 2 tablet Documented by: Insulin Aspart (Novolog Vial Sliding Scale -) 1 vial SQ [facility]; Protocol Last Admin: 05/24/20 07:10 Dose: 7 units Documented by: Insulin Aspart (Novolog Mix 70/30 Vial) 35 units SQ BIDAC [facility] Last Admin: 05/24/20 07:03 Dose: 35 units Documented by: Insulin Detemir (Levemir Vial) 30 units SQ BID@0700,2200 [facility] Last Admin: 05/24/20 07:01 Dose: 30 units Documented by: Metoprolol Succinate (Toprol Xl -) 25 mg PO DAILY [facility] Last Admin: 05/24/20 09:40 Dose: 25 mg Documented by: Pantoprazole Sodium (Protonix -) 40 mg PO DAILY [facility] Last Admin: 05/24/20 09:40 Dose: 40 mg Documented by: Prednisone (Deltasone -) 20 mg PO DAILY [facility] Last Admin: 05/24/20 09:40 Dose: 20 mg Documented by: Sevelamer Carbonate (Renvela -) 800 mg PO TIDCM [facility] Last Admin: 05/24/20 08:12 Dose: 800 mg Documented by: Sodium Bicarbonate (Sodium Bicarbonate -) 650 mg PO DAILY [facility] Last Admin: 05/24/20 09:40 Dose: 650 mg Documented by: - Objective Vital Signs: Vital Signs Temperature 98.3 F 05/24/20 05:00 Pulse Rate 66 05/24/20 05:00 Respiratory Rate 05/23/20 22:00 Blood Pressure 131/60 05/24/20 05:00 O2 Sat by Pulse Oximetry (%) 96 05/23/20 22:00 Constitutional: Yes: Well Nourished Eyes: Yes: WNL HENT: Yes: WNL Cardiovascular: Yes: S1, S2, S4 Respiratory: Yes: WNL Gastrointestinal: Yes: Soft ...Rectal Exam: Yes: Deferred Genitourinary: No: Anuria Musculoskeletal: Yes: WNL Extremities: Yes: Other (LLE ankle/foot dressing dry) Edema: No Peripheral Pulses WNL: Yes Integumentary: Yes: WNL Wound/Incision: Yes: Clean/Dry Neurological: Yes: WNL Psychiatric: Yes: WNL Labs: CBC, BMP 05/23/20 07:40 05/24/20 08:15 INR, PTT INR 1.20 (0.83-1.09) H 05/12/20 14:48 - ....Imaging Chest X-ray: Image Reviewed Other: Image Reviewed Assessment/Plan s/p CABG Acute/chronic CHF Poorly-controlled DM HTN PAD: non-healing wound. acute/chronic renal dysfunction; rising BUN, >100. Anxiety/depression COVID not detected x 2. Continue metoprolol and apixaban (hx atrial flutter-->ablation therapy 2019). F/u LE vascular lesion (no osteomyelitis or abscess) with wound care specialists. ECHO: Normal LVEF; moderate LAE and LVH. CXR 05/18/20: CHF F/u BUN/Cr, Is and Os, daily weight, electrolytes. Discussed with canvas goods fabricator: pt for IV fluids overnight; f/u BUN/Cr. On Cymbalta. On antibiotics.
--- NOTE | 2020-05-24 12:16 | PN ---
Progress Note, Physician History of Present Illness: Mr. Red is a 69 year old white male with PMHx of CKD stage 5, hypertension, DM (insulin pump), PVD, CAD s/p CABG 2016 (no hx [place]), PAD-->LLE stent 2017 (Dr. Carolyn Garcia), CVA ("three TIAs", with residual mild left-sided weakness), diastolic CHF, s/p atrial "flutter"-->ablation Rx 2018 at [facility] (now on metoprolol and apixaban), anemia, elevated TNI since at least 2017, obesity (s/p gastric bypass surgery; weighed 285 lbs before the surgery), who was sent in from the wound care clinic with LE (dorsum of left foot) wound and found to have suspected cellulitis. He says he was told he would "need surgery". (He says he has been walking regularly, and that the wound does not impede this. Seen and examined at the bedside. Pt follows with Dr. Shy Brown as an outpatient for CKD, was last seen May 03. He offers no acute complaints at this time. No SOB, CP, fever, chills, N/V/D, flank pain, dysuria or frequency. Making urine. No leg swelling. PMD: Dr. Joaquín Adam Outreach Coordinator: Dr. James, [facility] Surgical Hx: spinal disk replacement kidney stone removal/stent CABG 2015 bariatric surgery 04/19 CEA (R) 12/22 EPS: ablation of atrial flutter 06/21 berto LE laser vein surgery - Current Medication List Current Medications: Active Medications Albuterol Sulfate (Ventolin 0.083% Nebulizer Soln -) 1 amp NEB Q4H PRN PRN Reason: SHORT OF BREATH/WHEEZING Albuterol/Ipratropium (Duoneb -) 1 amp NEB RQID [facility] Last Admin: 05/24/20 11:48 Dose: Not Given Documented by: Amlodipine Besylate (Norvasc -) 5 mg PO DAILY [facility] Last Admin: 05/24/20 09:40 Dose: 5 mg Documented by: Apixaban (Eliquis -) 2.5 mg PO BID [facility] Last Admin: 05/24/20 09:40 Dose: 2.5 mg Documented by: Aspirin (Ecotrin -) 81 mg PO DAILY [facility] Last Admin: 05/24/20 09:40 Dose: 81 mg Documented by: Atorvastatin Calcium (Lipitor -) 20 mg PO HS [facility] Last Admin: 05/23/20 22:09 Dose: 20 mg Documented by: Calcium Carbonate/Cholecalciferol (Os-Osvaldo 500+D -) 1 tab PO DAILY [facility] Last Admin: 05/24/20 09:40 Dose: 1 tab Documented by: Duloxetine HCl (Cymbalta -) 40 mg PO DAILY [facility] Last Admin: 05/24/20 09:39 Dose: 40 mg Documented by: Gabapentin (Neurontin -) 100 mg PO BID [facility] Last Admin: 05/24/20 09:39 Dose: 100 mg Documented by: Guaifenesin (Robitussin -) 10 ml PO Q4H PRN PRN Reason: COUGH Last Admin: 05/21/20 21:17 Dose: 10 ml Documented by: Guaifenesin (Mucinex Dm -) 2 tablet PO BID [facility] Last Admin: 05/24/20 09:40 Dose: 2 tablet Documented by: Insulin Aspart (Novolog Vial Sliding Scale -) 1 vial SQ ACHS [facility]; Protocol Last Admin: 05/24/20 11:42 Dose: 9 units Documented by: Insulin Aspart (Novolog Mix 70/30 Vial) 35 units SQ BIDAC [facility] Last Admin: 05/24/20 07:03 Dose: 35 units Documented by: Insulin Detemir (Levemir Vial) 30 units SQ BID@0700,2200 [facility] Last Admin: 05/24/20 07:01 Dose: 30 units Documented by: Metoprolol Succinate (Toprol Xl -) 25 mg PO DAILY [facility] Last Admin: 05/24/20 09:40 Dose: 25 mg Documented by: Pantoprazole Sodium (Protonix -) 40 mg PO DAILY [facility] Last Admin: 05/24/20 09:40 Dose: 40 mg Documented by: Prednisone (Deltasone -) 20 mg PO DAILY [facility] Last Admin: 05/24/20 09:40 Dose: 20 mg Documented by: Sevelamer Carbonate (Renvela -) 800 mg PO TIDCM [facility] Last Admin: 05/24/20 11:42 Dose: 800 mg Documented by: Sodium Bicarbonate (Sodium Bicarbonate -) 650 mg PO DAILY [facility] Last Admin: 05/24/20 09:40 Dose: 650 mg Documented by: - Objective Vital Signs: Vital Signs Temperature 98.3 F 07/22/20 05:00 Pulse Rate 66 05/24/20 05:00 Respiratory Rate 20 05/23/20 22:00 Blood Pressure 131/60 05/24/20 05:00 O2 Sat by Pulse Oximetry (%) 96 05/23/20 22:00 Eyes: Yes: WNL, Conjunctiva Clear, EOM Intact HENT: Yes: WNL, Atraumatic, Normocephalic Neck: Yes: WNL, Supple, Trachea Midline Cardiovascular: Yes: WNL, Regular Rate and Rhythm Respiratory: Yes: WNL, Regular, CTA Bilaterally Gastrointestinal: Yes: WNL, Normal Bowel Sounds Genitourinary: Yes: WNL Musculoskeletal: Yes: WNL Extremities: Yes: WNL Edema: No Integumentary: Yes: WNL Neurological: Yes: WNL, Alert, Oriented ...Motor Strength: WNL Psychiatric: Yes: WNL Labs: CBC, BMP 05/23/20 07:40 05/24/20 08:15 INR, PTT INR 1.20 (0.83-1.09) H 05/12/20 14:48 Assessment/Plan Assessment/Plan s/p CABG Acute/chronic CHF Poorly-controlled DM HTN PAD: non-healing wound. acute/chronic renal dysfunction; rising BUN, >100. Anxiety/depression COVID not detected x 2. Continue metoprolol and apixaban (hx atrial flutter-->ablation therapy 2018). F/u LE vascular lesion (no osteomyelitis or abscess) with wound care specialists. ECHO: Normal LVEF; moderate LAE and LVH. CXR 05/18/20: CHF F/u BUN/Cr, Is and Os, daily weight, electrolytes. Discussed with water resources business segment leader: pt for IV fluids overnight; f/u BUN/Cr. On Cymbalta. On antibiotics.
--- NOTE | 2020-05-24 12:38 | PN ---
Progress Note, Physician History of Present Illness: patient stable no new issues - Current Medication List Current Medications: Active Medications Albuterol Sulfate (Ventolin 0.083% Nebulizer Soln -) 1 amp NEB Q4H PRN PRN Reason: SHORT OF BREATH/WHEEZING Albuterol/Ipratropium (Duoneb -) 1 amp NEB RQID [facility] Last Admin: 05/24/20 11:48 Dose: Not Given Documented by: Amlodipine Besylate (Norvasc -) 5 mg PO DAILY [facility] Last Admin: 05/24/20 09:40 Dose: 5 mg Documented by: Apixaban (Eliquis -) 2.5 mg PO BID [facility] Last Admin: 05/24/20 09:40 Dose: 2.5 mg Documented by: Aspirin (Ecotrin -) 81 mg PO DAILY [facility] Last Admin: 05/24/20 09:40 Dose: 81 mg Documented by: Atorvastatin Calcium (Lipitor -) 20 mg PO HS [facility] Last Admin: 05/23/20 22:09 Dose: 20 mg Documented by: Calcium Carbonate/Cholecalciferol (Os-Osvaldo 500+D -) 1 tab PO DAILY [facility] Last Admin: 05/24/20 09:40 Dose: 1 tab Documented by: Duloxetine HCl (Cymbalta -) 40 mg PO DAILY [facility] Last Admin: 05/24/20 09:39 Dose: 40 mg Documented by: Gabapentin (Neurontin -) 100 mg PO BID [facility] Last Admin: 05/24/20 09:39 Dose: 100 mg Documented by: Guaifenesin (Robitussin -) 10 ml PO Q4H PRN PRN Reason: COUGH Last Admin: 05/21/20 21:17 Dose: 10 ml Documented by: Guaifenesin (Mucinex Dm -) 2 tablet PO BID [facility] Last Admin: 05/24/20 09:40 Dose: 2 tablet Documented by: Insulin Aspart (Novolog Vial Sliding Scale -) 1 vial SQ ACHS [facility]; Protocol Last Admin: 05/24/20 11:42 Dose: 9 units Documented by: Insulin Aspart (Novolog Mix 70/30 Vial) 35 units SQ BIDAC [facility] Last Admin: 05/24/20 07:03 Dose: 35 units Documented by: Insulin Detemir (Levemir Vial) 30 units SQ BID@0700,2200 [facility] Last Admin: 05/24/20 07:01 Dose: 30 units Documented by: Metoprolol Succinate (Toprol Xl -) 25 mg PO DAILY [facility] Last Admin: 05/24/20 09:40 Dose: 25 mg Documented by: Pantoprazole Sodium (Protonix -) 40 mg PO DAILY [facility] Last Admin: 05/24/20 09:40 Dose: 40 mg Documented by: Prednisone (Deltasone -) 20 mg PO DAILY [facility] Last Admin: 05/24/20 09:40 Dose: 20 mg Documented by: Sevelamer Carbonate (Renvela -) 800 mg PO TIDCM [facility] Last Admin: 05/24/20 11:42 Dose: 800 mg Documented by: Sodium Bicarbonate (Sodium Bicarbonate -) 650 mg PO DAILY [facility] Last Admin: 05/24/20 09:40 Dose: 650 mg Documented by: - Objective Vital Signs: Vital Signs Temperature 98.3 F 05/24/20 05:00 Pulse Rate 69 05/24/20 10:00 Respiratory Rate 05/24/20 10:00 Blood Pressure 135/62 05/24/20 10:00 O2 Sat by Pulse Oximetry (%) 94 L 05/24/20 10:00 Constitutional: Yes: No Distress, Calm Cardiovascular: Yes: S1, S2 Respiratory: Yes: Regular, CTA Bilaterally Gastrointestinal: Yes: Normal Bowel Sounds, Soft Musculoskeletal: Yes: WNL Extremities: Yes: Other Neurological: Yes: Alert, Oriented Psychiatric: Yes: Alert, Oriented Labs: CBC, BMP 05/23/20 07:40 05/24/20 08:15 INR, PTT INR 1.20 (0.83-1.09) H 05/12/20 14:48 Assessment/Plan 69 yo male with a history of DM, HTN, CAD, BOBY, CKD, HLD, diastolic CHF, atrial flutter, CVA, PAD, peripheral neuropathy and morbid obesity sent for admission for LLE ulcer and cellulitis. plan continue current mgmt wound care vascular input rest as per the team
[2020-05-24 13:46] VITALS: BP 131/69; PULSE 73; TEMP 98.8
== END 2020-05-24 16:21 | disposition home or self-care (01) | DRG 637 ==
LOC: JER 14:13 → JERBED 16:07 → J6S 18:08
PROVIDERS: ADMIT Internal Medicine; ATTEND Internal Medicine
DX: E11.621 Type 2 diabetes mellitus with foot ulcer (principal); I50.33 Acute on chronic diastolic (congestive) heart failure; J18.9 Pneumonia, unspecified organism; J96.00 Acute respiratory failure, unspecified whether with hypoxia or hypercapnia; I13.2 Hypertensive heart and chronic kidney disease with heart failure and with stage 5 chronic kidney disease, or end stage renal disease; L03.116 Cellulitis of left lower limb; I48.92 Unspecified atrial flutter; E87.2 Acidosis; F41.8 Other specified anxiety disorders; L97.529 Non-pressure chronic ulcer of other part of left foot with unspecified severity; E11.51 Type 2 diabetes mellitus with diabetic peripheral angiopathy without gangrene; N17.9 Acute kidney failure, unspecified; I25.10 Atherosclerotic heart disease of native coronary artery without angina pectoris; E11.22 Type 2 diabetes mellitus with diabetic chronic kidney disease; N18.5 Chronic kidney disease, stage 5; E11.65 Type 2 diabetes mellitus with hyperglycemia; D64.9 Anemia, unspecified; E11.40 Type 2 diabetes mellitus with diabetic neuropathy, unspecified; H66.93 Otitis media, unspecified, bilateral; G47.33 Obstructive sleep apnea (adult) (pediatric); E78.5 Hyperlipidemia, unspecified; I48.91 Unspecified atrial fibrillation; Z98.84 Bariatric surgery status; E66.9 Obesity, unspecified; Z68.29 Body mass index [BMI] 29.0-29.9, adult; Z86.73 Personal history of transient ischemic attack (TIA), and cerebral infarction without residual deficits; Z95.1 Presence of aortocoronary bypass graft
CPT/HCPCS: 11042; 36415; 71045-TC-FY; 73610-TC-LT-FY; 73630-TC-LT; 73718-TC-LT; 80048; 80053; 81003; 82728; 82947; 82962; 83540; 83550; 83605; 83735; 84100; 85025; 85027; 85610; 85651; 86140; 86850; 86900; 86901; 87040; 87070; 87186; 87205; 93005; 93010; 93306-TC; 93923; 93925-TC; 93971-TC; 93978; 94640; 94761; 97116-GP; 97161-GP; 99285-25; G0277; G0480; J0131; J0885; U0003

== ENCOUNTER 2020-06-07 12:59 | Inpatient (IN) | payer OTHER, BC ==
--- NOTE | 2020-06-07 14:19 | PDOC ---
Rapid Medical Evaluation Chief Complaint: Abnormal Lab Results (Outside) Time Seen by Provider: 06/07/20 13:36 Medical Evaluation: Allergies Allergy/AdvReac Type Severity Reaction Status Date / Time levofloxacin [From Levaquin] Allergy Intermediate Verified 06/07/20 13:13 morphine Allergy Intermediate Vomiting Verified 06/07/20 13:13 codeine AdvReac Verified 06/07/20 13:13 Vital Signs Temp Pulse Resp BP Pulse Ox 98.4 F 68 21 H 139/63 100 06/07/20 13:11 06/07/20 13:11 06/07/20 13:11 06/07/20 13:11 06/07/20 13:11 06/07/20 14:17 70 yo male history of diabetes, hypertension, CAD, hyperlipidemia, CKD, CVA, PAD, BOBY sent in by PMD for admission, as per triage note needs dialysis access. Vital signs reviewed Labs ordered Chest x-ray, EKG To main ED Discharge Disposition - Discharge Dispostion Last Admission D/C Date: 05/24/20 - Referrals Referrals: Joaquín Adam MD [Primary Care Provider] - - Patient Instructions - Post Discharge Activity
--- NOTE | 2020-06-07 15:02 | PDOC ---
History of Present Illness - General Chief Complaint: Abnormal Lab Results (Outside) Stated Complaint: SENT BY PCP/(SURGERY) Time Seen by Provider: 06/07/20 13:36 History Source: Patient, Spouse Exam Limitations: No Limitations - History of Present Illness Initial Comments: Benji Red is a 70 M with a PMH of IDDM, HTN, HLD, BOBY, CHF, Aflutter(s/p ablation, on Eliquis 2.5mg), CAD(s/p CABG), 2 TIAs, PAD(s/p left leg stent), CKD(stage 5 not on dialysis), sent by PCP(Joaquín Patricio) for Placement of an AV fistula for dialysis tomorrow with Dr. Garcia. Nephrology Jonah Hernandez. Patient was recently admitted to [facility] from 05/12-05/24 for wound care of chronic left lateral mal ulcer with overlying cellulitis. Patient reports that his cellulitis resolved during hospital stay and now again since 1 week, she has noticed, erythema on the left leg. patient denies any SOB, chest pain, cough, weakness, LOC, changes in bowel or urinary habits, changes in vision, fever, chills, nausea, vomiting. 06/07/20 15:10 06/07/20 15:49 Past History - Travel History Traveled outside of the country in the last 30 days: No - Medical History Allergies/Adverse Reactions: Allergies Allergy/AdvReac Type Severity Reaction Status Date / Time levofloxacin [From Levaquin] Allergy Intermediate Verified 06/07/20 13:13 morphine Allergy Intermediate Vomiting Verified 06/07/20 13:13 codeine AdvReac Verified 06/07/20 13:13 Home Medications: Ambulatory Orders Aspirin Coated [Ecotrin -] 81 mg PO DAILY 11/18/17 Zolpidem Tartrate [Ambien] 10 mg PO HS 01/06/18 Duloxetine HCl 40 mg PO DAILY 07/20/19 Pregabalin [Lyrica -] 50 mg PO BID [facility] 2 07/20/19 Gabapentin [Neurontin -] 100 mg PO BID 04/12/20 Insulin Aspart [Novolog] 0 unit SQ ASDIR 04/12/20 Amlodipine Besylate [Norvasc -] 5 mg PO DAILY #30 tablet 04/18/20 Atorvastatin Ca [Lipitor] 20 mg PO HS #30 tablet 04/18/20 Calcium 500Mg/Vit-D 200 Units [Os-Osvaldo 500+D -] 1 tab PO DAILY #30 tab 04/18/20 Collagenase Clostridium Hist. [Santyl -] 1 applic TP DAILY #1 tube 04/18/20 Metoprolol Succinate [Toprol XL -] 25 mg PO DAILY #30 tab.sr.24h 04/18/20 Pantoprazole Sodium [Protonix -] 40 mg PO DAILY #30 tablet.ec 04/18/20 Apixaban [Eliquis -] 2.5 mg PO BID #60 tablet 05/23/20 Insulin (Novolog 70/30) [Novolog Mix 70/30 Vial -] 35 units SQ BIDAC #0 units 05/23/20 Sevelamer Carbonate [Renvela -] 800 mg PO TIDCM #90 tab 05/23/20 Furosemide [Lasix] 20 mg PO DAILY #30 tablet 05/24/20 Anemia: No Asthma: No Cancer: No Cardiac Disorders: Yes (a fib on eliquis) CVA: Yes COPD: No CHF: No Dementia: No Diabetes: Yes GI Disorders: No Disorders: Yes (CKD) HTN: Yes Hypercholesterolemia: Yes Liver Disease: No Seizures: No Thyroid Disease: No - Surgical History Abdominal Surgery: Yes (BARIATRIC) Appendectomy: No Cardiac Surgery: Yes (quad bypass) Cholecystectomy: No Lung Surgery: No Neurologic Surgery: Yes (DDD) Orthopedic Surgery: Yes (RIGHT HAND, NECK) - Immunization History Immunization Up to Date: Yes - Psycho-Social/Smoking History Smoking History: Former smoker Have you smoked in the past 12 months: No If you are a former smoker, when did you quit?: 25 years ago Information on smoking cessation initiated: No - Substance Abuse Hx (Audit-C & DAST Scrn) How often the patient has a drink containing alcohol: Never Score: In Men: 4 or > Positive; In Women: 3 or > Positive: 0 Screen Result (Pos requires Nsg. Audit-10AR): Negative In the last yr the pt used illegal drug/Rx for NonMed reason: No Score: Yes response is considered Positive: 0 Screen Result (Positive result requires Nsg. DAST-10): Negative Review of Systems - Review of Systems Able to Perform ROS?: Yes Is the patient limited Citizen [place] proficient: No Constitutional: No: Chills, Fever, Loss of Appetite, Night Sweats, Weakness HEENTM: No: Blurred Vision, Nose Congestion, Throat Pain, Throat Swelling, Difficulty Swallowing Respiratory: No: Cough, Shortness of Breath Cardiac (ROS): Yes: Edema (chronic b/l extremity edema, L>R). No: Chest Pain, Palpitations ABD/GI: No: Abdominal Distended, Constipated, Diarrhea, Nausea, Vomiting : No: Burning, Dysuria, Incontinence Integumentary: Yes: Erythema (left leg ). No: Lesions, Rash Neurological: Yes: Pre-Existing Deficit (sensory deficit b/l LE). No: Headache *Physical Exam - Vital Signs Last Vital Signs Temp Pulse Resp BP Pulse Ox 98.4 F 68 21 H 139/63 100 06/07/20 13:11 06/07/20 13:11 06/07/20 13:11 06/07/20 13:11 06/07/20 13:11 - Physical Exam General Appearance: Yes: Nourished, Obese. No: Apparent Distress HEENT: positive: EOMI, TERRY. negative: Nasal Congestion, Rhinorrhea Neck: positive: Supple. negative: Tender, Rigid, Carotid bruit Respiratory/Chest: positive: Normal Breath Sounds. negative: Respiratory Distress, Crackles, Rales, Rhonchi Cardiovascular: positive: Regular Rhythm, Regular Rate, S1, S2, Edema (chronic b/l +2 pitting edema L>R). negative: JVD, Murmur Vascular Pulses: Carotid (R): 2+, Carotid (L): 2+ Gastrointestinal/Abdominal: positive: Normal Bowel Sounds, Protuberent. negative: Tender, Tenderness, Hernia Extremity: positive: Normal Inspection, Pedal Edema (chronic b/l LE). 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 Garcia. #AV fistula placement #cellulitis of LLE - CBC, CMP, PT(INR), PTT - UA - CXR- No infiltrates - EKG: Sinus Tachy with 1st degree AV block, Vent rate 74, NJ 212, QTc 477 - u/s LLE: no DVT - Blood cultures x 2 - Linezolid 600 mg IV - Dispo: ADM 06/07/20 17:46 Discharge - Discharge Information Problems reviewed: Yes Clinical Impression/Diagnosis: AV fistula - Admission Yes - Follow up/Referral Referrals: Joaquín Adam MD [Primary Care Provider] - - Patient Discharge Instructions - Post Discharge Activity
[2020-06-07] MEDS ORDERED: LINEZOLID 600 MG PREMIX BAG 600 MG in PREMIX 300 IV ONE (15:07)
[2020-06-07 15:38] LABS: BASO % 0.9 % (0-2.0); EOS % 2.6 % (0-4.5); HEMOGLOBIN 8.4 GM/dL (11.7-16.9); MCH 26.5 pg (25.7-33.7); MCHC 31.3 g/dl (32.0-35.9); MEAN CELL VOLUME 84.8 fl (80-96); MEAN PLT VOLUME 8.2 fl (7.5-11.1); MONO % 6.7 % (3.8-10.2); NEUT % 71.8 % (42.8-82.8); PLATELET COUNT 229 K/MM3 (134-434); RBC 3.19 M/mm3 (4.00-5.60); RDW 16.7 % (11.9-15.9)
[2020-06-07 15:45] LABS: INR 1.06 (0.83-1.09); PROTHROMBIN TIME (PATIENT) 12.5 SEC (9.7-13.0)
--- NOTE | 2020-06-07 15:46 | PDOC ---
Attending Attestation - Resident Resident Name: Justus eHrnandez - ED Attending Attestation I have performed the following: I have examined & evaluated the patient, The case was reviewed & discussed with the resident, I agree w/resident's findings & plan, Exceptions are as noted - HPI HPI: 06/07/20 15:44 70-year-old male with multiple comorbidities presents to the ER for placement of AV fistula to initiate hemodialysis. patient denies chest pain shortness of breath/fever/chills. - Physicial Exam PE: 06/07/20 15:45 Patient is awake and alert, nontoxic-appearing, in no significant distress nc, atr perrla, eomi cta no jvd lle erythema c/w cellulitis/thrombphlebitis 06/07/20 16:04 - Medical Decision Making 06/07/20 15:45 70-year-old male with multiple comorbidities presents to the ER for admission. Will admit for AV fistula placement to initiate hemodialysis. Discharge - Discharge Information Problems reviewed: Yes Clinical Impression/Diagnosis: AV fistula Condition: Good Disposition: HOME - Follow up/Referral - Patient Discharge Instructions - Post Discharge Activity
[2020-06-07 15:53] LABS: EPI CELLS 9 /uL (0-25.1); HYALINE CASTS 2 /uL (0-3.1); PH,URINE 5.5 (5.0-8.0); URINE APPEARANCE CLEAR; URINE BACTERIA 7 /uL (0-1359); URINE BILIRUBIN NEGATIVE (NEGATIVE); URINE COLOR YELLOW; URINE GLUCOSE (UA) 1+ (NEGATIVE); URINE KETONE NEGATIVE (NEGATIVE); URINE LEUK ESTERASE NEGATIVE (NEGATIVE); URINE NITRITE NEGATIVE (NEGATIVE); URINE PROTEIN 4+ (NEGATIVE); URINE RBC 18 /uL (0-23.9); URINE UROBILINOGEN 0.2 mg/dL (0.2-1.0); URINE WBC 17 /uL (0-25.8)
--- NOTE | 2020-06-07 15:59 | EKG ---
Test Reason : Blood Pressure : / mmHG Vent. Rate : 074 BPM Atrial Rate : 074 BPM P-R Int : 212 ms QRS Dur : 084 ms QT Int : 430 ms P-R-T Axes : 060 023 071 degrees QTc Int : 477 ms POOR DATA QUALITY, INTERPRETATION MAY BE ADVERSELY AFFECTED SINUS RHYTHM WITH 1ST DEGREE A-V BLOCK OTHERWISE NORMAL ECG WHEN COMPARED WITH ECG OF 19-MAY-2020 09:48, [place] INTERVAL HAS INCREASED Confirmed by Lei Chavez ([id number]) on 06/07/2020 3:58:44 PM Referred By: Confirmed By:Lei Chavez
[2020-06-07 16:10] LABS: ALBUMIN 2.3 g/dl (3.4-5.0); BILIRUBIN,TOTAL 0.2 mg/dL (0.2-1); BLOOD UREA NITROGEN 42.5 mg/dL (7-18); CALCIUM 7.7 mg/dL (8.5-10.1); CREATININE 3.8 mg/dL (0.55-1.3); MAGNESIUM 1.8 mg/dL (1.8-2.4); POTASSIUM 5.1 mmol/L (3.5-5.1); TOT PROT 5.8 g/dl (6.4-8.2)
[2020-06-08 05:23] VITALS: BMI 31.6
[2020-06-08] MEDS: INSULIN (NOVOLOG MIX 70/30) 100 UNITS/ML MDV SQ SCH ×2 (06:42→17:00)
[2020-06-08] MEDS: INSULIN SLIDING SCALE (NOVOLOG) 1 VIAL SQ SCH ×4 (06:43→21:21)
[2020-06-08 07:23] LABS: EOS % 3.4 % (0-4.5); HEMATOCRIT 29.6 % (35.4-49); HEMOGLOBIN 9.2 GM/dL (11.7-16.9); LYMPH % 19.8 % (8-40); MCH 26.3 pg (25.7-33.7); MCHC 31.2 g/dl (32.0-35.9); MEAN CELL VOLUME 84.4 fl (80-96); MEAN PLT VOLUME 8.4 fl (7.5-11.1); MONO % 8.3 % (3.8-10.2); NEUT % 67.5 % (42.8-82.8); PLATELET COUNT 212 K/MM3 (134-434); RDW 16.6 % (11.9-15.9); WHITE BLOOD COUNT 5.8 K/mm3 (4.0-10.0)
[2020-06-08 08:14] LABS: ALBUMIN 2.3 g/dl (3.4-5.0); BILIRUBIN,TOTAL 0.3 mg/dL (0.2-1); BLOOD UREA NITROGEN 40.2 mg/dL (7-18); CALCIUM 7.6 mg/dL (8.5-10.1); CREATININE 3.8 mg/dL (0.55-1.3); POTASSIUM 4.4 mmol/L (3.5-5.1); TOT PROT 5.7 g/dl (6.4-8.2)
--- NOTE | 2020-06-08 08:30 | PN ---
Progress Note (short form) - Note Progress Note: VASCULAR SURGERY 70yo M with ESRD was consulted to vascular for permacath and AVF placement. Pt states he has not started HD yet. Pt is Left handed. Pt had vein mapping done yesterday. Pt does still make urine. Last Vital Signs Temp Pulse Resp BP Pulse Ox 98.0 F 71 20 164/76 98 06/08/20 05:06 06/08/20 05:06 06/08/20 05:06 06/08/20 05:06 06/08/20 05:06 CBC, BMP 06/08/20 05:56 06/08/20 05:56 PE: Gen: A&O x 3 Resp: breathing comfortably Ext: arms no edema, +2 radial pulses Problem List - Problems (1) ESRF (end stage renal failure) Assessment/Plan: Plan -will plan for permacath and AVF creation later today 06/08/20 -NPO -IVF -medical optimization Pt discussed with Dr. Garcia who agrees with plan Code(s): N18.6 - END STAGE RENAL DISEASE
[2020-06-08] MEDS ORDERED: PATIENT'S OWN MEDICATION (NON-FORMULARY) (Omeprazole 20 MG) PO SCH (10:00)
[2020-06-08] MEDS ORDERED: CALCIUM 500MG/VIT-D 200 UNITS COMBO TABLET (FP) PO SCH (10:00)
[2020-06-08] MEDS ORDERED: ASPIRIN COATED 81 MG TABLET.EC PO SCH (10:00)
[2020-06-08] MEDS ORDERED: LINEZOLID 600 MG TABLET (RESTRICTED TO ID) PO SCH ×2 (10:00)
[2020-06-08] MEDS ORDERED: APIXABAN 2.5 MG TABLET PO SCH (10:00)
[2020-06-08] MEDS ORDERED: amLODIPine BESYLATE 5 MG TABLET (FP) PO SCH (10:00)
[2020-06-08] MEDS ORDERED: metoPROLOL SUCCINATE 25 MG TAB.SR.24H (FP) PO SCH (10:00)
[2020-06-08] MEDS ORDERED: GABAPENTIN 100 MG CAPSULE PO SCH (10:00)
[2020-06-08] MEDS ORDERED: PANTOPRAZOLE 20 MG TABLET PO SCH (10:00)
[2020-06-08] MEDS ORDERED: DULoxetine HCL 20 MG CAPSULE.DR PO SCH (10:00)
--- NOTE | 2020-06-08 11:21 | CON.ID ---
Consult Consult Specialty:: infectious diseases Referred by:: dr morgan Reason for Consultation:: wound infection - History of Present Illness Chief Complaint: leg pain History of Present Illness: 70 M with a PMH of IDDM, HTN, HLD, BOBY, CHF, Aflutter(s/p ablation, on Eliquis 2.5mg), CAD(s/p CABG), 2 TIAs, PAD(s/p left leg stent), CKD(stage 5 not on dialysis), sent by PCP(Joaquín Patricio) for Placement of an AV fistula for dialysis tomorrow with Dr. Garcia. Nephrology Jonah Hernandez. Patient was recently admitted to [facility] from 05/12-05/24 for wound care of chronic left lateral mal ulcer with overlying cellulitis. Patient reports that his cellulitis resolved during hospital stay and now again since 1 week, she has noticed, erythema on the left leg. patient denies any SOB, chest pain, cough, weakness, LOC, changes in bowel or urinary habits, changes in vision, fever, chills, nausea, vomiting. 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 Cardio/Vascular: Yes: CAD, HTN, Other Renal/: Yes: Renal Failure, Renal Inusuff Infectious Disease: Yes: MRSA (Lt finger abscess) Endocrine: Yes: Diabetes Mellitus Dermatology: Yes: Cellulitis - Past Surgical History Past Surgical History: Yes: Bariatric Surgery, CABG, Carotid Endarterectomy - Alcohol/Substance Use Hx Alcohol Use: No History of Substance Use: reports: None - Smoking History Smoking history: Former smoker Have you smoked in the past 12 months: No If you are a former smoker, when did you quit?: 25 years ago - Social History ADL: Independent History of Recent Travel: No Home Medications - Allergies Allergies/Adverse Reactions: Allergies Allergy/AdvReac Type Severity Reaction Status Date / Time levofloxacin [From Levaquin] Allergy Intermediate Verified 06/27/20 22:15 morphine Allergy Intermediate Vomiting Verified 06/27/20 22:15 codeine AdvReac Verified 06/27/20 22:15 - Home Medications Home Medications: Ambulatory Orders RX: Aspirin Coated [Ecotrin -] 81 mg PO DAILY 11/18/17 RX: Zolpidem Tartrate [Ambien] 10 mg PO HS 01/06/18 RX: Duloxetine HCl 40 mg PO DAILY 07/20/19 RX: Gabapentin [Neurontin -] 100 mg PO BID 04/12/20 RX: Amlodipine Besylate [Norvasc -] 5 mg PO DAILY #30 tablet 04/18/20 RX: Calcium 500Mg/Vit-D 200 Units [Os-Osvaldo 500+D -] 1 tab PO DAILY #30 tab 04/18/20 RX: Metoprolol Succinate [Toprol XL -] 25 mg PO DAILY #30 tab.sr.24h 04/18/20 RX: Insulin (Novolog 70/30) [Novolog Mix 70/30 Vial -] 35 units SQ BIDAC #0 uni ts 05/23/20 RX: Omeprazole 20 mg PO DAILY 06/07/20 RX: Apixaban [Eliquis -] 2.5 mg PO BID tablet 06/09/20 RX: Furosemide [Lasix -] 40 mg PO DAILY tablet 06/09/20 Review of Systems - Review of Systems Constitutional: reports: No Symptoms Eyes: reports: No Symptoms HENT: reports: No Symptoms Neck: reports: No Symptoms Cardiovascular: reports: No Symptoms Respiratory: reports: No Symptoms Gastrointestinal: reports: No Symptoms Genitourinary: reports: No Symptoms Musculoskeletal: reports: Other Integumentary: reports: Change in Color Neurological: reports: No Symptoms Endocrine: reports: No Symptoms Hematology/Lymphatic: reports: No Symptoms Psychiatric: reports: No Symptoms Physical Exam Vital Signs: Vital Signs Temperature 98.0 F 06/08/20 09:40 Pulse Rate 77 06/08/20 09:40 Respiratory Rate 19 06/08/20 09:40 Blood Pressure 159/78 06/08/20 09:40 O2 Sat by Pulse Oximetry (%) 97 06/08/20 09:40 Constitutional: Yes: Well Nourished, No Distress, Calm Eyes: Yes: Conjunctiva Clear HENT: Yes: Atraumatic, Normocephalic Neck: Yes: Supple, Trachea Midline Cardiovascular: Yes: Regular Rate and Rhythm Respiratory: Yes: Regular, CTA Bilaterally Gastrointestinal: Yes: Normal Bowel Sounds, Soft Musculoskeletal: Yes: WNL Extremities: Yes: Other Neurological: Yes: Alert, Oriented Psychiatric: Yes: Alert, Oriented Labs: CBC, BMP 06/08/20 05:56 06/08/20 05:56 Assessment/Plan 70 year old male with history of CKD stage 5, hypertension, CAD, PVD who was sent to the ED by Dr. Shy Brown for suspected worsening renal failure and uremia. 1. Acute kidney injury on CKD 2. CKD stage 4 3. AVF creation 4. Lower extremity soft tissue infection 5. Hx of CHF/Volume overload 6. PVD 7 ulcer of the leg plan continue current mgmt rest as per the team follow up with vascular await for fistula will cover him with abx for fistula as patient as lot of comorbid conditions
[2020-06-08] MEDS ORDERED: CEFTRIAXONE 1 GM in DEXTROSE 5%-WATER - 50 ML IVPB SCH (11:30)
[2020-06-08] MEDS ORDERED: cefTRIAXone SODIUM 1 GM VIAL ONE (11:52)
[2020-06-08] MEDS ORDERED: DEXTROSE 5%-WATER - 50 ML IVPB ONE (11:53)
[2020-06-08] MEDS ORDERED: HEPARIN NA (PORCINE) 5,000 UNITS/ML 1ML VIAL ONE (12:15)
[2020-06-08] MEDS ORDERED: LIDOCAINE HCL 1%, 10 MG/ML (20ML VIAL) ONE (12:15)
--- NOTE | 2020-06-08 12:39 | CON.NEP ---
Consult Consult Specialty:: Nephrology Referred by:: ED Reason for Consultation:: CKD stage 5 - History of Present Illness Chief Complaint: Worsening renal function History of Present Illness: This is a 70 year old male with history of CKD stage 5, hypertension, CAD, PVD who was sent to the ED by Dr. Shy Brown for suspected worsening renal failure and uremia. Pt was in the hospital last month for soft tissue infection of the lower extremity complicated with acute on chronic renal failure with BUN/Cr > 120/6. Pt was not started on dialysis at that time. Currently his complains only of some fatigue. Denies any SOB, CP, N/V, confusion, weakness, metallic taste in the mouth. He is planned to have a AVF placed later today. Is making urine. 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 Cardio/Vascular: Yes: CAD, HTN, Other Renal/: Yes: Renal Failure, Renal Inusuff Infectious Disease: Yes: MRSA (Lt finger abscess) Endocrine: Yes: Diabetes Mellitus Dermatology: Yes: Cellulitis - Past Surgical History Past Surgical History: Yes: Bariatric Surgery, CABG, Carotid Endarterectomy - Alcohol/Substance Use Hx Alcohol Use: No History of Substance Use: reports: None - Smoking History Smoking history: Former smoker Have you smoked in the past 12 months: No If you are a former smoker, when did you quit?: 25 years ago - Social History ADL: Independent History of Recent Travel: No Home Medications - Allergies Allergies/Adverse Reactions: Allergies Allergy/AdvReac Type Severity Reaction Status Date / Time levofloxacin [From Levaquin] Allergy Intermediate Verified 06/07/20 13:13 morphine Allergy Intermediate Vomiting Verified 06/07/20 13:13 codeine AdvReac Verified 06/07/20 13:13 - Home Medications Home Medications: Ambulatory Orders Aspirin Coated [Ecotrin -] 81 mg PO DAILY 11/18/17 Zolpidem Tartrate [Ambien] 10 mg PO HS 01/06/18 Duloxetine HCl 40 mg PO DAILY 07/20/19 Gabapentin [Neurontin -] 100 mg PO BID 04/12/20 Amlodipine Besylate [Norvasc -] 5 mg PO DAILY #30 tablet 04/18/20 Calcium 500Mg/Vit-D 200 Units [Os-Osvaldo 500+D -] 1 tab PO DAILY #30 tab 04/18/20 Metoprolol Succinate [Toprol XL -] 25 mg PO DAILY #30 tab.sr.24h 04/18/20 Apixaban [Eliquis -] 2.5 mg PO BID #60 tablet 05/23/20 Insulin (Novolog 70/30) [Novolog Mix 70/30 Vial -] 35 units SQ BIDAC #0 units 05/23/20 Furosemide [Lasix] 20 mg PO DAILY #30 tablet 05/24/20 Omeprazole 20 mg PO DAILY 06/07/20 Family Medical History Family History: Unremarkable Review of Systems - Review of Systems Constitutional: reports: Lethargy Eyes: reports: No Symptoms HENT: reports: No Symptoms Neck: reports: No Symptoms Cardiovascular: reports: Edema. denies: Chest Pain, Palpitations, Shortness of Breath Respiratory: denies: Cough, Hemoptysis, Orthopnea, SOB Gastrointestinal: reports: No Symptoms Genitourinary: reports: No Symptoms Musculoskeletal: reports: No Symptoms Neurological: reports: No Symptoms Endocrine: reports: No Symptoms Nephrology Consult - Height Height: 5 ft 11 in - Weight Weight: 102.739 kg - BMI Body Mass Index (BMI): 31.6 - Lab Results CBC,BMP: CBC, BMP 06/08/20 05:56 06/08/20 05:56 Anion Gap: Anion Gap Anion Gap 7 MMOL/L (8-16) L 06/08/20 05:56 - Imaging Chest X-ray: Report Reviewed, Image Reviewed - Physical Examination Vital Signs: Vital Signs Temperature 98.0 F 06/08/20 09:40 Pulse Rate 77 06/08/20 09:40 Respiratory Rate 19 06/08/20 09:40 Blood Pressure 159/78 06/08/20 09:40 O2 Sat by Pulse Oximetry (%) 97 06/08/20 09:40 Constitutional: Yes: Well Nourished, No Distress, Calm Eyes: Yes: Conjunctiva Clear HENT: Yes: Atraumatic Neck: Yes: Supple Cardiovascular: Yes: Regular Rate and Rhythm Respiratory: Yes: Regular, CTA Bilaterally. No: Rales, Rhonchi, SOB Gastrointestinal: Yes: Soft. No: Tenderness Renal/: No: Bladder Distention, CVA Tenderness - Left, CVA Tenderness - Right, Jarvis Present Extremities: Yes: Erythema Edema: Yes Edema: LLE: Trace, RLE: Trace Neurological: Yes: Alert, Oriented. No: Asterixis Assessment/Plan 70 year old male with history of CKD stage 5, hypertension, CAD, PVD who was sent to the ED by Dr. Shy Brown for suspected worsening renal failure and uremia. 1. Acute kidney injury on CKD 2. CKD stage 4 3. AVF creation 4. Lower extremity soft tissue infection 5. Hx of CHF/Volume overload 6. PVD Renal function significantly improved from discharge of last admission. There is no overt hyperkalemia or metabolic acidosis noted. Pt has mild fatigue however that likely is multifactorial from anemia + CKD No emergent need for dialysis at this time. For AVF placement today Will need continue Lasix 40mg Daily, and possibly titrate to BID as an outpatient if weights increase. There is no overt fluid overload noted at this time. Continue Abx as per ID consider discharge planning tomorrow after procedure. Thank you Jonah Painting DO
[2020-06-08] MEDS ORDERED: EPOETIN ALFA 20,000 UNIT/1 ML VIAL SQ ONE ×2 (13:01→16:45)
[2020-06-08] MEDS ORDERED: IRON SUCROSE INJECTION 100 MG in SODIUM CHLORIDE 95 ML IVPB ONE ×2 (13:02→16:45)
[2020-06-08] MEDS ORDERED: FUROSEMIDE 40 MG TABLET (FP) PO SCH (13:15)
[2020-06-08] MEDS ORDERED: ceFAZolin SODIUM 1 GM VIAL IVPB ONE (13:42)
[2020-06-08] MEDS ORDERED: ONDANSETRON 4 MG/2 ML VIAL IVPUSH PRN ×2 (14:07→16:45)
[2020-06-08] MEDS ORDERED: LIDOCAINE HCL 1%, 10 MG/ML (20ML VIAL) INF ONE ×2 (14:15)
[2020-06-08] MEDS ORDERED: HEPARIN NA (PORCINE) 5,000 UNITS/ML 1ML VIAL SQ ONE (14:20)
--- NOTE | 2020-06-08 15:31 | HP ---
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 Cardiovascular: Yes: CAD, HTN, Other Renal/: Yes: Renal Failure, Renal Inusuff Infectious Disease: Yes: MRSA (Lt finger abscess) Endocrine: Yes: Diabetes Mellitus Dermatology: Yes: Cellulitis - Past Surgical History Past Surgical History: Yes: Bariatric Surgery, CABG, Carotid Endarterectomy - Smoking History Smoking history: Former smoker Have you smoked in the past 12 months: No If you are a former smoker, when did you quit?: 25 years ago - Alcohol/Substance Use Hx Alcohol Use: No History of Substance Use: reports: None - Social History ADL: Independent History of Recent Travel: No Home Medications - Allergies Allergies/Adverse Reactions: Allergies Allergy/AdvReac Type Severity Reaction Status Date / Time levofloxacin [From Levaquin] Allergy Intermediate Verified 06/27/20 22:15 morphine Allergy Intermediate Vomiting Verified 06/27/20 22:15 codeine AdvReac Verified 06/27/20 22:15 - Home Medications Home Medications: Ambulatory Orders Aspirin Coated [Ecotrin -] 81 mg PO DAILY 11/18/17 Zolpidem Tartrate [Ambien] 10 mg PO HS 01/06/18 Duloxetine HCl 40 mg PO DAILY 07/20/19 Gabapentin [Neurontin -] 100 mg PO BID 04/12/20 Amlodipine Besylate [Norvasc -] 5 mg PO DAILY #30 tablet 04/18/20 Calcium 500Mg/Vit-D 200 Units [Os-Osvaldo 500+D -] 1 tab PO DAILY #30 tab 04/18/20 Metoprolol Succinate [Toprol XL -] 25 mg PO DAILY #30 tab.sr.24h 04/18/20 Insulin (Novolog 70/30) [Novolog Mix 70/30 Vial -] 35 units SQ BIDAC #0 units 05/23/20 Omeprazole 20 mg PO DAILY 06/07/20 Apixaban [Eliquis -] 2.5 mg PO BID tablet 06/09/20 Apixaban [Eliquis -] 2.5 mg PO BID tablet 07/13/20 Doxycycline Hyclate [Vibramycin -] 100 mg PO BID@1000,1800 #30 capsule 07/13/20 Meclizine HCl [Antivert -] 12.5 mg PO Q6HPO PRN tablet 07/13/20 Piperacillin/Tazob 2.25 gm [Zosyn -] 2.25 gm IVPB Q8H-IV vial 07/13/20 Sennosides [Senna -] 1 tab PO HS PRN #30 tablet 07/13/20 Sevelamer Carbonate [Renvela -] 800 mg PO TIDCM #90 tab 07/13/20 Sodium Bicarbonate - 650 mg PO BID #60 tablet 07/13/20 Zolpidem Tartrate [Ambien] 5 mg PO HS PRN tablet 07/13/20 Physical Examination Vital Signs: Vital Signs Temperature 98.0 F 06/08/20 09:40 Pulse Rate 77 06/08/20 09:40 Respiratory Rate 19 06/08/20 09:40 Blood Pressure 159/78 06/08/20 09:40 O2 Sat by Pulse Oximetry (%) 97 06/08/20 09:40 Labs: CBC, BMP 06/08/20 05:56 06/08/20 05:56 Problem List - Problems (1) Acute on chronic renal failure Code(s): N17.9 - ACUTE KIDNEY FAILURE, UNSPECIFIED; N18.9 - CHRONIC KIDNEY DISEASE, UNSPECIFIED (2) Atrial fibrillation Code(s): I48.91 - UNSPECIFIED ATRIAL FIBRILLATION (3) CHF (congestive heart failure) Code(s): I50.9 - HEART FAILURE, UNSPECIFIED (4) Diabetic foot infection Code(s): E11.628 - TYPE 2 DIABETES MELLITUS WITH OTHER SKIN COMPLICATIONS; L08.9 - LOCAL INFECTION OF THE SKIN AND SUBCUTANEOUS TISSUE, UNSP (5) Hx of CABG Code(s): Z95.1 - PRESENCE OF AORTOCORONARY BYPASS GRAFT (6) PAD (peripheral artery disease) Code(s): I73.9 - PERIPHERAL VASCULAR DISEASE, UNSPECIFIED (7) CAD (coronary artery disease) Code(s): I25.10 - ATHSCL HEART DISEASE OF [place] CORONARY ARTERY W/O ANG PCTRS Qualifiers: Coronary Disease-Associated Artery/Lesion type: [place] artery [place] vs. transplanted heart: [place] heart Associated angina: without angina Qualified Code(s): I25.10 - Atherosclerotic heart disease of [place] coronary artery without angina pectoris (8) Hyperlipidemia Code(s): E78.5 - HYPERLIPIDEMIA, UNSPECIFIED Qualifiers: Hyperlipidemia type: pure hypercholesterolemia Qualified Code(s): E78.00 - Pure hypercholesterolemia, unspecified; E78.0 - Pure hypercholesterolemia (9) Hypertension Code(s): I10 - ESSENTIAL (PRIMARY) HYPERTENSION Qualifiers: Hypertension type: essential hypertension Qualified Code(s): I10 - Essential (primary) hypertension
--- NOTE | 2020-06-08 15:57 | OP ---
Operative Note - Note: Operative Date: 06/08/20 Pre-Operative Diagnosis: CRF Operation: Creation of right basilic vein fistula Post-Operative Diagnosis: Same as Pre-op Surgeon: Matt Garcia Anesthesia: MAC Estimated Blood Loss (mls): 40 Operative Report Dictated: Yes
--- NOTE | 2020-06-08 16:00 | PN ---
Progress Note (short form) - Note Progress Note: Vascular Surgery S/P basilic vein fistula right arm. Pt can be DC home in am. Gianfranco pt can restart his eliquis. Pt should follow up in office in one week for staple removal. Call for appt -- [phone] Matt Garcia DO
[2020-06-08] MEDS ORDERED: traMADol HCL 50 MG TABLET PO ONE (17:45)
[2020-06-08] MEDS ORDERED: ACETAMINOPHEN 1000 MG/100 ML VIAL (NON FORMULARY) IVPB PRN (21:08)
[2020-06-08] MEDS: GABAPENTIN 100 MG CAPSULE PO SCH (21:20)
[2020-06-08] MEDS ORDERED: ZOLPIDEM TARTRATE 5 MG TABLET PO PRN ×2 (22:00)
[2020-06-09] MEDS: INSULIN SLIDING SCALE (NOVOLOG) 1 VIAL SQ SCH ×2 (06:12→11:55)
[2020-06-09] MEDS ORDERED: PT OWN MED DRAWER 7, Y5N ONE (06:57)
[2020-06-09] MEDS ORDERED: INSULIN (NOVOLOG MIX 70/30) 100 UNITS/ML MDV SQ SCH (07:00)
[2020-06-09 07:10] LABS: BLOOD UREA NITROGEN 38.6 mg/dL (7-18); CALCIUM 7.4 mg/dL (8.5-10.1); CREATININE 3.9 mg/dL (0.55-1.3); POTASSIUM 4.6 mmol/L (3.5-5.1)
[2020-06-09] MEDS ORDERED: DEXTROSE 5%-WATER - 50 ML IVPB ONE (09:09)
[2020-06-09] MEDS ORDERED: cefTRIAXone SODIUM 1 GM VIAL ONE (09:09)
[2020-06-09 09:14] VITALS: BP 143/68; PULSE 78; TEMP 97.6
[2020-06-09] MEDS: GABAPENTIN 100 MG CAPSULE PO SCH (09:16)
[2020-06-09] MEDS ORDERED: FUROSEMIDE 40 MG TABLET (FP) PO SCH (10:00)
[2020-06-09] MEDS ORDERED: amLODIPine BESYLATE 5 MG TABLET (FP) PO SCH (10:00)
[2020-06-09] MEDS ORDERED: PANTOPRAZOLE 20 MG TABLET PO SCH (10:00)
[2020-06-09] MEDS ORDERED: CEFTRIAXONE 1 GM in DEXTROSE 5%-WATER - 50 ML IVPB SCH (10:00)
[2020-06-09] MEDS ORDERED: ASPIRIN COATED 81 MG TABLET.EC PO SCH (10:00)
[2020-06-09] MEDS ORDERED: APIXABAN 2.5 MG TABLET PO SCH (10:00)
[2020-06-09] MEDS ORDERED: CALCIUM 500MG/VIT-D 200 UNITS COMBO TABLET (FP) PO SCH (10:00)
[2020-06-09] MEDS ORDERED: metoPROLOL SUCCINATE 25 MG TAB.SR.24H (FP) PO SCH (10:00)
[2020-06-09] MEDS ORDERED: DULoxetine HCL 20 MG CAPSULE.DR PO SCH (10:00)
--- NOTE | 2020-06-09 10:29 | PN ---
Progress Note (short form) - Note Progress Note: Anesthesia POD#1 S/P AVF creation under MAC VSS,awake, Alert, no pain or N/V. Doing well. Emmy Sanchez MD.
--- NOTE | 2020-06-09 10:49 | PN ---
Progress Note, Physician History of Present Illness: patient stable no new issues - Current Medication List Current Medications: Active Medications Acetaminophen (Ofirmev Injection -) 1,000 mg IVPB Q6H PRN PRN Reason: pain scale 6-10 Stop: 06/09/20 21:07 Last Admin: 06/08/20 21:22 Dose: 1,000 mg Documented by: Amlodipine Besylate (Norvasc -) 5 mg PO DAILY [facility] Last Admin: 06/09/20 09:17 Dose: 5 mg Documented by: Apixaban (Eliquis -) 2.5 mg PO BID [facility] Last Admin: 06/09/20 09:17 Dose: 2.5 mg Documented by: Aspirin (Ecotrin -) 81 mg PO DAILY [facility] Last Admin: 06/09/20 09:16 Dose: 81 mg Documented by: Calcium Carbonate/Cholecalciferol (Os-Osvaldo 500+D -) 1 tab PO DAILY [facility] Last Admin: 06/09/20 09:16 Dose: 1 tab Documented by: Duloxetine HCl (Cymbalta -) 40 mg PO DAILY [facility] Last Admin: 06/09/20 09:16 Dose: 40 mg Documented by: Furosemide (Lasix -) 40 mg PO DAILY [facility] Last Admin: 06/09/20 09:16 Dose: 40 mg Documented by: Gabapentin (Neurontin -) 100 mg PO BID [facility] Last Admin: 06/09/20 09:16 Dose: 100 mg Documented by: Ceftriaxone Sodium 1 gm/ (Dextrose) 50 mls @ 200 mls/hr IVPB DAILY [facility]; Protocol Last Admin: 06/09/20 09:15 Dose: 200 mls/hr Documented by: Insulin Aspart (Novolog Mix 70/30 Vial) 35 units SQ BIDAC [facility] Last Admin: 06/09/20 06:52 Dose: 35 units Documented by: Insulin Aspart (Novolog Vial Sliding Scale -) 1 vial SQ ACHS [facility]; Protocol Last Admin: 06/09/20 06:12 Dose: Not Given Documented by: Metoprolol Succinate (Toprol Xl -) 25 mg PO DAILY [facility] Last Admin: 06/09/20 09:16 Dose: 25 mg Documented by: Ondansetron HCl (Zofran Injection) 4 mg IVPUSH Q6H PRN PRN Reason: NAUSEA AND/OR VOMITING Stop: 06/09/20 14:06 Pantoprazole Sodium (Protonix -) 20 mg PO DAILY [facility] Last Admin: 06/09/20 09:16 Dose: 20 mg Documented by: Zolpidem Tartrate (Ambien -) 5 mg PO HS PRN PRN Reason: INSOMNIA Last Admin: 06/08/20 22:17 Dose: 5 mg Documented by: - Objective Vital Signs: Vital Signs Temperature 97.6 F 06/09/20 09:13 Pulse Rate 78 06/09/20 09:13 Respiratory Rate 19 06/09/20 09:13 Blood Pressure 143/68 06/09/20 09:13 O2 Sat by Pulse Oximetry (%) 97 06/09/20 09:13 Constitutional: Yes: No Distress, Calm Cardiovascular: Yes: S1, S2 Respiratory: Yes: Regular, CTA Bilaterally Gastrointestinal: Yes: Normal Bowel Sounds, Soft Musculoskeletal: Yes: Other Extremities: Yes: Other Neurological: Yes: Alert, Oriented Psychiatric: Yes: Alert, Oriented Labs: CBC, BMP 06/08/20 05:56 06/09/20 06:02 INR, PTT INR 1.06 (0.83-1.09) 06/07/20 15:20 Assessment/Plan 70 year old male with history of CKD stage 5, hypertension, CAD, PVD who was sent to the ED by Dr. Shy Brown for suspected worsening renal failure and uremia. 1. Acute kidney injury on CKD 2. CKD stage 4 3. AVF creation 4. Lower extremity soft tissue infection 5. Hx of CHF/Volume overload 6. PVD 7 ulcer of the leg plan continue current mgmt rest as per the team can stop iv abx wound care follow up with vascular
--- NOTE | 2020-06-14 11:53 | OP ---
DATE OF OPERATION: 06/08/2020 PREOPERATIVE DIAGNOSIS: Chronic renal failure. POSTOPERATIVE DIAGNOSIS: Chronic renal failure. PROCEDURE: Creation of right basilic vein fistula. SURGEON: Matt Mix DO ANESTHESIA: Fractional. BLOOD LOSS: 50 mL. INDICATIONS: The patient is a 70-year-old male that comes into the hospital needing a PermCath and AV fistula placement for dialysis initiation. Patient had a vein mapping done yesterday showing that he has a good right basilic vein in his arm. Patient is left handed. Patient was consented for the procedure, understanding all risks, benefits, alternatives, and was then taken to the operating room. Once in the operating room, he was laid on the operating table in supine manner, and the area of the right arm was prepped and draped in a sterile surgical manner. Under ultrasound guidance, we were able to visualize the right basilic vein, and that was marked on the skin using a skin marker above the antecubital fossa, and our brachial artery was then marked on the skin above the antecubital fossa. We then went ahead and injected 15 mL of lidocaine 1% over the basilic vein. We then made a 5-cm incision over the basilic vein. We then used Bovie electrocautery to get down through all the subcutaneous tissue. We then dissected out the basilic vein all branches were ligated using 4-0 silk. We then went ahead and went medially and made our 3-cm incision over the brachial artery. Ten milliliters of lidocaine 1% was injected there. We then went through all the subcutaneous tissue using Bovie electrocautery, and then we then dissected out our brachial artery. Brachial artery was dissected anteriorly and posteriorly, and Vesseloops were placed proximally and distally. We then went ahead and ligated our vein distally, and we took it out under the nerve so that it can be free. We then went ahead and transposed the vein over to the artery. A 6-mm venotomy was made using Meyers scissors on the vein. IV heparin, 5000 units, was administered to the patient. After 3 minutes, we got distal and proximal control on the artery. We then used a 15-blade and an arteriotomy was made, extending it to 7 mm. We then used 6-0 Prolene double arm, and stay sutures were placed on the artery. We then used 6-0 Prolene double arm, went outside in on the vein, inside out on the artery and ran the suture artery and the vein. Once completed, we opened the distal artery first, then the proximal artery, and there was a good thrill in our AV fistula. We then irrigated the wound copiously. Surgicel was placed at the anastomosis. Vicryl 3-0 was used and the subcutaneous tissue was approximated in interrupted manner for both incisions. Skin was closed with skin taryn. Area was wet and dried; 4 x 4, Tegaderms were placed. Patient tolerated the procedure with no complications. Patient transferred to PACU in stable condition. MATT MIX DO [id number]
== END 2020-06-09 13:49 | disposition home health service (06) | DRG 264 ==
LOC: JER 12:59 → JERBED 18:11 → J4S 06-08 04:31
PROVIDERS: ADMIT Internal Medicine; ATTEND Internal Medicine
DX: I13.2 Hypertensive heart and chronic kidney disease with heart failure and with stage 5 chronic kidney disease, or end stage renal disease (principal); N18.6 End stage renal disease; I48.92 Unspecified atrial flutter; L03.116 Cellulitis of left lower limb; N17.9 Acute kidney failure, unspecified; E11.22 Type 2 diabetes mellitus with diabetic chronic kidney disease; E11.51 Type 2 diabetes mellitus with diabetic peripheral angiopathy without gangrene; E78.5 Hyperlipidemia, unspecified; G47.33 Obstructive sleep apnea (adult) (pediatric); I50.9 Heart failure, unspecified; I48.91 Unspecified atrial fibrillation; E66.9 Obesity, unspecified; Z68.31 Body mass index [BMI] 31.0-31.9, adult; I44.0 Atrioventricular block, first degree; D63.1 Anemia in chronic kidney disease; I25.10 Atherosclerotic heart disease of native coronary artery without angina pectoris; I73.9 Peripheral vascular disease, unspecified; Z95.1 Presence of aortocoronary bypass graft
CPT/HCPCS: 11042; 15275; 36415; 71046-TC-FY; 80048; 80053; 81003; 82962; 83540; 83550; 83735; 85025; 85610; 85730; 86850; 86900; 86901; 87040; 93005; 93010; 93971-TC; 93985; 94760; 99285-25; G0277; J0131; J0885; J1644; J1756; Q4196; U0003

== ENCOUNTER 2020-06-27 21:51 | Inpatient (IN) | payer OTHER, BC ==
--- NOTE | 2020-06-27 23:30 | PDOC ---
Attending Attestation - Resident Resident Name: Rosa Tate - ED Attending Attestation I have performed the following: I have examined & evaluated the patient, The case was reviewed & discussed with the resident, I agree w/resident's findings & plan - HPI HPI: 06/28/20 00:30 see resident hpi - Physicial Exam PE: 06/28/20 00:30 see resident exam - Medical Decision Making 06/28/20 00:30 70-year-old male status post fall x2 today with complaints of weakness and inability to ambulate securely Per patient he normally goes to the grocery store and this is not his baseline He denies any pain at this time, patient unable to stand or pivot without losing balance He is currently on anticoagulation Plan for syncope evaluation as well as CT scan of the head and cervical spine with plans for observation admission PT evaluation Discharge - Discharge Information Problems reviewed: Yes Clinical Impression/Diagnosis: Weakness, Near syncope Condition: Fair - Follow up/Referral Referrals: Joaquín Adam MD [Primary Care Provider] - - Patient Discharge Instructions - Post Discharge Activity
--- NOTE | 2020-06-28 01:04 | PDOC ---
History of Present Illness - General Chief Complaint: Injury Stated Complaint: FALL Time Seen by Provider: 06/27/20 23:23 History Source: Patient Exam Limitations: No Limitations - History of Present Illness Initial Comments: 06/28/20 02:37 70y M with PMH of PMH of IDDM, HTN, HLD, BOBY, CHF, Aflutter(s/p ablation, on Eliquis 2.5mg), CAD(s/p CABG), 2 TIAs, PAD(s/p left leg stent), CKD s/p R AVF 06/08/20 presenting to the ER for slip off of the couch. Pt states he was on the sofa and slid off but could not get up. His could not lift him either. Pt also states that he fell today in hyperbaric today, got up with assistance and was able to ambulate. Denies hitting his head, loc, chest pain, back pain, unilateral weakness, numbness/tingling, abdominal pain, n/v/d, fevers, chills. He does endorse generalized weakness. He is on Eliquis PMD: Pavan Adam Renal: Mert PMH: see hpi PSH: see hpi, cervical fusion Meds: see med rec Allergies: levaquin Social: denies Past History - Medical History Allergies/Adverse Reactions: Allergies Allergy/AdvReac Type Severity Reaction Status Date / Time levofloxacin [From Levaquin] Allergy Intermediate Verified 06/27/20 22:15 morphine Allergy Intermediate Vomiting Verified 06/27/20 22:15 codeine AdvReac Verified 06/27/20 22:15 Home Medications: Ambulatory Orders Aspirin Coated [Ecotrin -] 81 mg PO DAILY 11/18/17 Zolpidem Tartrate [Ambien] 10 mg PO HS 01/06/18 Duloxetine HCl 40 mg PO DAILY 07/20/19 Gabapentin [Neurontin -] 100 mg PO BID 04/12/20 Amlodipine Besylate [Norvasc -] 5 mg PO DAILY #30 tablet 04/18/20 Calcium 500Mg/Vit-D 200 Units [Os-Osvaldo 500+D -] 1 tab PO DAILY #30 tab 04/18/20 Metoprolol Succinate [Toprol XL -] 25 mg PO DAILY #30 tab.sr.24h 04/18/20 Insulin (Novolog 70/30) [Novolog Mix 70/30 Vial -] 35 units SQ BIDAC #0 units 05/23/20 Omeprazole 20 mg PO DAILY 06/07/20 Apixaban [Eliquis -] 2.5 mg PO BID tablet 06/09/20 Furosemide [Lasix -] 40 mg PO DAILY tablet 06/09/20 Anemia: Yes Asthma: No Cancer: No Cardiac Disorders: Yes (AFIB - ELIQUIS; C.ABLATION [facility] 1 1/2YRS AGO) CVA: Yes (TIA X 2) COPD: No CHF: No Dementia: No Diabetes: Yes GI Disorders: No Disorders: Yes (CKD) HTN: Yes Hypercholesterolemia: Yes Liver Disease: No Seizures: No Thyroid Disease: No - Surgical History Abdominal Surgery: Yes (BARIATRIC) Appendectomy: No Cardiac Surgery: Yes (quad bypass) Cholecystectomy: No Lung Surgery: No Neurologic Surgery: Yes (DDD) Orthopedic Surgery: Yes (RIGHT HAND, NECK) - Immunization History Immunization Up to Date: Yes - Psycho-Social/Smoking History Smoking History: Never smoked Have you smoked in the past 12 months: No If you are a former smoker, when did you quit?: 25 years ago Information on smoking cessation initiated: No - Substance Abuse Hx (Audit-C & DAST Scrn) How often the patient has a drink containing alcohol: Never Score: In Men: 4 or > Positive; In Women: 3 or > Positive: 0 Screen Result (Pos requires Nsg. Audit-10AR): Negative In the last yr the pt used illegal drug/Rx for NonMed reason: No Score: Yes response is considered Positive: 0 Screen Result (Positive result requires Nsg. DAST-10): Negative Review of Systems - Review of Systems Constitutional: Yes: Weakness. No: Chills, Fever, Malaise, Night Sweats HEENTM: No: Symptoms Reported Respiratory: No: Symptoms reported Cardiac (ROS): No: Symptoms Reported ABD/GI: No: Symptoms Reported : Yes: Frequency. No: Burning, Dysuria, Discharge, Flank Pain, Urgency Musculoskeletal: Yes: See HPI Integumentary: No: Symptoms Reported Neurological: No: Symptoms reported *Physical Exam - Vital Signs Last Vital Signs Temp Pulse Resp BP Pulse Ox 98.1 F 90 18 141/61 97 06/27/20 22:12 06/27/20 22:12 06/27/20 22:12 06/27/20 22:12 06/27/20 22:12 - Physical Exam General Appearance: Yes: Appropriately Dressed, Obese. No: Apparent Distress HEENT: positive: EOMI, TERRY. negative: Scleral Icterus (R), Scleral Icterus (L) Neck: positive: Trachea midline, Supple. negative: Lymphadenopathy (R), Lymphadenopathy (L) Respiratory/Chest: positive: Lungs Clear, Normal Breath Sounds. negative: Crackles, Rales, Rhonchi, Stridor, Wheezing Cardiovascular: positive: Regular Rhythm, Regular Rate, S1, S2. negative: JVD, Murmur Vascular Pulses: Dorsalis-Pedis (R): 1+, Doralis-Pedis (L): 1+ Comments:: 06/28/20 07:04 R AVF thrill Gastrointestinal/Abdominal: positive: Normal Bowel Sounds, Soft, Protuberent. negative: Tender, Guarding, Rebound, Tenderness, Hernia, Mass Musculoskeletal: negative: CVA Tenderness, Vertebral Tenderness Extremity: positive: Normal Capillary Refill, Pedal Edema, Other (R lateral foot wound, no superimposed infection noted, no erythema or induration). 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, Fully Oriented, Alert, Normal Mood/Affect, Normal Response, Motor Strength 5/5, Other (difficulty with standing and shifting weight while standing) ED Treatment Course - LABORATORY CBC & Chemistry Diagram: 06/28/20 02:50 06/28/20 02:50 - RADIOLOGY Radiology Studies Ordered: Category Date Time Status CERVICAL SPINE CT W/O CONTR [CT] Stat CT Scan 06/28/20 00:[address] WITHOUT CONTRAST [CT] Stat CT Scan 06/28/20 00:[address] W/O CONTRAST [CT] Stat CT Scan 06/28/20 00:11 Ordered CXRPORT [CHEST X-RAY PORTABLE*] [RAD] Stat Radiology 06/28/20 00:12 Ordered Medical Decision Making - Medical Decision Making 06/28/20 06:07 70y M with multiple comorbidities presenting to the ER for fall. Pt endorses w eakness. vitals wnl PE: normal muscle strength, no acute findings. Pt having difficulty with standi ng and moving. palpable thrill in r AVF. does not appear to be infected ddx includes infection, cardiac pathology, uti, electrolyte abnormality. less concerned for ascending paralysis (normal muscle tone), cva/tia, spinal abscess, compression/cauda equina (no neurological complaints). -labs -ct -ekg: sinus with sinus arrhtymia. no ferny or depressions. no signs of acute ischemia given pt cannot walk, will likely need admission. labs show wbc 20, no acute findings on cxr per my read. no acute findings on CT scans. ua negative for infection. hgb at baseline, cr at baseline. labs otherwise wnl. pt is afebrile, not tachycardic, do not suspect sepsis. will admit. Discharge - Discharge Information Problems reviewed: Yes Clinical Impression/Diagnosis: Weakness, Near syncope Condition: Fair - Admission Yes - Follow up/Referral Referrals: Joaquín Adam MD [Primary Care Provider] - - Patient Discharge Instructions - Post Discharge Activity
[2020-06-28 03:01] LABS: HEMATOCRIT 27.6 % (35.4-49); HEMOGLOBIN 8.5 GM/dL (11.7-16.9); LYMPH % 5.1 % (8-40); MCH 26.1 pg (25.7-33.7); MCHC 30.9 g/dl (32.0-35.9); MEAN CELL VOLUME 84.3 fl (80-96); MEAN PLT VOLUME 9.3 fl (7.5-11.1); MONO % 11.4 % (3.8-10.2); NEUT % 82.5 % (42.8-82.8); PLATELET COUNT 293 K/MM3 (134-434); RBC 3.27 M/mm3 (4.00-5.60); RDW 15.4 % (11.9-15.9); WHITE BLOOD COUNT 20.8 K/mm3 (4.0-10.0)
[2020-06-28 03:25] LABS: ALBUMIN 2.3 g/dl (3.4-5.0); BILIRUBIN,TOTAL 0.4 mg/dL (0.2-1); BLOOD UREA NITROGEN 52.5 mg/dL (7-18); CREATININE 4.5 mg/dL (0.55-1.3); POTASSIUM 4.7 mmol/L (3.5-5.1); TOT PROT 6.5 g/dl (6.4-8.2)
[2020-06-28 04:07] LABS: VENOUS BASE EXCESS -5.1 mmol/L (-2-2); VENOUS PH 7.342 (7.310-7.410)
[2020-06-28 05:41] LABS: EPI CELLS >36 /uL (0-25.1); HYALINE CASTS 44 /uL (0-3.1); URINE APPEARANCE CLOUDY; URINE BACTERIA 22 /uL (0-1359); URINE BILIRUBIN NEGATIVE (NEGATIVE); URINE COLOR YELLOW; URINE GLUCOSE (UA) 2+ (NEGATIVE); URINE KETONE NEGATIVE (NEGATIVE); URINE LEUK ESTERASE NEGATIVE (NEGATIVE); URINE NITRITE NEGATIVE (NEGATIVE); URINE PROTEIN 4+ (NEGATIVE); URINE RBC 9 /uL (0-23.9); URINE UROBILINOGEN 0.2 mg/dL (0.2-1.0); URINE WBC 52 /uL (0-25.8)
[2020-06-28] MEDS ORDERED: PIPERACILLIN/TAZOB 2.25 GM 2.25 GM in DEXTROSE 5%-WATER - 50 ML IVPB ONE (05:46)
[2020-06-28 05:50] LABS: SMUDGE CELLS FEW
[2020-06-28 05:51] LABS: PLATELET ESTIMATE ADEQUATE
[2020-06-28] MEDS ORDERED: PIPERACILLIN/TAZOB 2.25 GM 2.25 GM/50 ML BAG IVPB ONE ×2 (06:50→17:16)
--- NOTE | 2020-06-28 10:04 | EKG ---
Test Reason : Blood Pressure : / mmHG Vent. Rate : 077 BPM Atrial Rate : 082 BPM P-R Int : 168 ms QRS Dur : 090 ms QT Int : 392 ms P-R-T Axes : 030 037 050 degrees QTc Int : 443 ms SINUS RHYTHM WITH MARKED SINUS ARRHYTHMIA OTHERWISE NORMAL ECG WHEN COMPARED WITH ECG OF 07-JUN-2020 14:11, ID INTERVAL HAS DECREASED Confirmed by MD Dias Daniel ([id number]) on 06/28/2020 10:04:09 AM Referred By: Confirmed By:Maxwell Dias MD
--- NOTE | 2020-06-28 11:55 | CON.ID ---
Consult Consult Specialty:: infectious disease Referred by:: Reason for Consultation:: weakness,left leg cellulitis,wound of the left leg - History of Present Illness Chief Complaint: weakness,fall History of Present Illness: 70y M with PMH of PMH of IDDM, HTN, HLD, BOBY, CHF, Aflutter(s/p ablation, on Eliquis 2.5mg), CAD(s/p CABG), 2 TIAs, PAD(s/p left leg stent), CKD s/p R AVF 06/08/20 presenting to the ER for slip off of the couch. Pt states he was on the sofa and slid off but could not get up. His could not lift him either. Pt also states that he fell today in hyperbaric today, got up with assistance and was able to ambulate. Denies hitting his head, loc, chest pain, back pain, unilateral weakness, numbness/tingling, abdominal pain, n/v/d, fevers, chills. He does endorse generalized weakness. 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 Cardio/Vascular: Yes: CAD, HTN, Other Renal/: Yes: Renal Failure, Renal Inusuff Infectious Disease: Yes: MRSA (Lt finger abscess) Endocrine: Yes: Diabetes Mellitus Dermatology: Yes: Cellulitis - Past Surgical History Past Surgical History: Yes: Bariatric Surgery, CABG, Carotid Endarterectomy - Alcohol/Substance Use Hx Alcohol Use: No History of Substance Use: reports: None - Smoking History Smoking history: Never smoked Have you smoked in the past 12 months: No If you are a former smoker, when did you quit?: 25 years ago - Social History ADL: Independent History of Recent Travel: No Home Medications - Allergies Allergies/Adverse Reactions: Allergies Allergy/AdvReac Type Severity Reaction Status Date / Time levofloxacin [From Levaquin] Allergy Intermediate Verified 06/27/20 22:15 morphine Allergy Intermediate Vomiting Verified 06/27/20 22:15 codeine AdvReac Verified 06/27/20 22:15 - Home Medications Home Medications: Ambulatory Orders Aspirin Coated [Ecotrin -] 81 mg PO DAILY 11/18/17 Zolpidem Tartrate [Ambien] 10 mg PO HS 01/06/18 Duloxetine HCl 40 mg PO DAILY 07/20/19 Gabapentin [Neurontin -] 100 mg PO BID 04/12/20 Amlodipine Besylate [Norvasc -] 5 mg PO DAILY #30 tablet 04/18/20 Calcium 500Mg/Vit-D 200 Units [Os-Osvaldo 500+D -] 1 tab PO DAILY #30 tab 04/18/20 Metoprolol Succinate [Toprol XL -] 25 mg PO DAILY #30 tab.sr.24h 04/18/20 Insulin (Novolog 70/30) [Novolog Mix 70/30 Vial -] 35 units SQ BIDAC #0 units 05/23/20 Omeprazole 20 mg PO DAILY 06/07/20 Apixaban [Eliquis -] 2.5 mg PO BID tablet 06/09/20 Furosemide [Lasix -] 40 mg PO DAILY tablet 06/09/20 Review of Systems - Review of Systems Constitutional: reports: Weakness Eyes: reports: No Symptoms HENT: reports: No Symptoms Neck: reports: No Symptoms Cardiovascular: reports: No Symptoms Respiratory: reports: No Symptoms Gastrointestinal: reports: No Symptoms Genitourinary: reports: No Symptoms Musculoskeletal: reports: Other Integumentary: reports: Change in Color, Erythema, Other Neurological: reports: Other Endocrine: reports: No Symptoms Hematology/Lymphatic: reports: No Symptoms Psychiatric: reports: No Symptoms Physical Exam Vital Signs: Vital Signs Temperature 98.6 F 06/28/20 07:15 Pulse Rate 55 L 06/28/20 07:15 Respiratory Rate 17 06/28/20 07:15 Blood Pressure 155/68 06/28/20 07:15 O2 Sat by Pulse Oximetry (%) 98 06/28/20 07:15 Constitutional: Yes: Calm, Mild Distress Eyes: Yes: Conjunctiva Clear Cardiovascular: Yes: Regular Rate and Rhythm Respiratory: Yes: Regular, CTA Bilaterally Gastrointestinal: Yes: Normal Bowel Sounds, Soft Musculoskeletal: Yes: WNL Extremities: Yes: Erythema, Other Integumentary: Yes: Erythema, Other Wound/Incision: Yes: Dressing Dry and Intact Neurological: Yes: Alert, Other Psychiatric: Yes: Alert Labs: CBC, BMP 06/28/20 02:50 06/28/20 02:50 Imaging - Results Chest X-ray: Report Reviewed, Image Reviewed Cat Scan: Report Reviewed, Image Reviewed Assessment/Plan this patient with multiple medicl problems coming in with weakness also patients cellulitis has flared up leg looks bad i am going to start him on abx elevation of leg surgery to see the patient rest as per the team
--- NOTE | 2020-06-28 16:30 | CON.NEP ---
Consult Consult Specialty:: Nephrology Referred by:: Medicine Reason for Consultation:: Advanced CKD - History of Present Illness Chief Complaint: Fall History of Present Illness: This is a 70 year old male with history of CKD stage 4/5, IDDM, hypertension, hyperlipidemia, BOBY, CHF, Aflutter, PVD who presented from home with a fall and generalized weakness and noted to have left lower extremity cellulitis with leukocytosis/WBC of 20k and Cr of 4.5. Seen and examined in the ED. He is awake and alert. Denies any pain in his lower extremity. He slid down from his sofa but was too weak to get back up. He denies any sob, chest pain, abdominal pain, fever or chills. Pt had been going to wound care. He denies any confusion/patience rgy/weakness. No flank pain. Making urine. Denies any NSAID use. 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 Cardio/Vascular: Yes: CAD, HTN, Other Renal/: Yes: Renal Failure, Renal Inusuff Infectious Disease: Yes: MRSA (Lt finger abscess) Endocrine: Yes: Diabetes Mellitus Dermatology: Yes: Cellulitis - Past Surgical History Past Surgical History: Yes: Bariatric Surgery, CABG, Carotid Endarterectomy - Alcohol/Substance Use Hx Alcohol Use: No History of Substance Use: reports: None - Smoking History Smoking history: Never smoked Have you smoked in the past 12 months: No If you are a former smoker, when did you quit?: 25 years ago - Social History ADL: Independent History of Recent Travel: No Home Medications - Allergies Allergies/Adverse Reactions: Allergies Allergy/AdvReac Type Severity Reaction Status Date / Time levofloxacin [From Levaquin] Allergy Intermediate Verified 06/27/20 22:15 morphine Allergy Intermediate Vomiting Verified 06/27/20 22:15 codeine AdvReac Verified 06/27/20 22:15 - Home Medications Home Medications: Ambulatory Orders Aspirin Coated [Ecotrin -] 81 mg PO DAILY 11/18/17 Zolpidem Tartrate [Ambien] 10 mg PO HS 01/06/18 Duloxetine HCl 40 mg PO DAILY 07/20/19 Gabapentin [Neurontin -] 100 mg PO BID 04/12/20 Amlodipine Besylate [Norvasc -] 5 mg PO DAILY #30 tablet 04/18/20 Calcium 500Mg/Vit-D 200 Units [Os-Osvaldo 500+D -] 1 tab PO DAILY #30 tab 04/18/20 Metoprolol Succinate [Toprol XL -] 25 mg PO DAILY #30 tab.sr.24h 04/18/20 Insulin (Novolog 70/30) [Novolog Mix 70/30 Vial -] 35 units SQ BIDAC #0 units 05/23/20 Omeprazole 20 mg PO DAILY 06/07/20 Apixaban [Eliquis -] 2.5 mg PO BID tablet 06/09/20 Furosemide [Lasix -] 40 mg PO DAILY tablet 06/09/20 Family Medical History Family History: Unremarkable Review of Systems - Review of Systems Constitutional: reports: Weakness Eyes: reports: No Symptoms HENT: reports: No Symptoms Neck: reports: No Symptoms Cardiovascular: reports: No Symptoms Respiratory: reports: No Symptoms Gastrointestinal: reports: No Symptoms Genitourinary: reports: No Symptoms Musculoskeletal: reports: Joint Swelling Integumentary: reports: Erythema Neurological: reports: No Symptoms Endocrine: reports: No Symptoms Nephrology Consult - Height Height: 5 ft 11 in - Weight Weight: 97.522 kg - BMI Body Mass Index (BMI): 29.9 - Lab Results CBC,BMP: CBC, BMP 06/28/20 02:50 06/28/20 02:50 Anion Gap: Anion Gap Anion Gap 12 MMOL/L (8-16) 06/28/20 02:50 - Physical Examination Vital Signs: Vital Signs Temperature 99.5 F 06/28/20 14:32 Pulse Rate 78 06/28/20 14:32 Respiratory Rate 18 06/28/20 14:32 Blood Pressure 147/67 06/28/20 14:32 O2 Sat by Pulse Oximetry (%) 93 L 06/28/20 14:32 Constitutional: Yes: Well Nourished, No Distress, Calm HENT: Yes: Atraumatic Neck: Yes: Supple Cardiovascular: Yes: Regular Rate and Rhythm Respiratory: Yes: Regular, CTA Bilaterally Gastrointestinal: Yes: Soft. No: Tenderness Renal/: No: Bladder Distention Extremities: Yes: Erythema Edema: Yes Edema: LUE: 1+ Wound/Incision: Yes: Dressing Dry and Intact Neurological: Yes: Alert, Oriented Assessment/Plan 70 year old male with history of CKD stage 4/5, IDDM, hypertension, hyperli pidemia, BOBY, CHF, Aflutter, PVD who presented from home with a fall and generalized weakness and noted to have left lower extremity cellulitis with leukocytosis/WBC of 20k and Cr of 4.5. 1. Lower extremity cellulitis r/o osteomylitis 2. CKD stage 4/5 3. Anemia 4. Hx of CHF w/o evidence of acute exacerbation 5. Hypertension 6. 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
[2020-06-28] MEDS ORDERED: VANCOMYCIN 1 GM in D5W (PRE-DOCKED) 1,000 MG/250 ML IVPB ONE (17:08)
[2020-06-28] MEDS ORDERED: VANCOMYCIN 1 GRAM (PRE-DOCKED) 1,000 MG/250 ML BAG IVPB ONE (17:16)
[2020-06-28] MEDS: PIPERACILLIN/TAZOB 2.25 GM 2.25 GM in DEXTROSE 5%-WATER - 50 ML IVPB SCH (18:36)
[2020-06-28] MEDS ORDERED: metoPROLOL SUCCINATE 25 MG TAB.SR.24H (FP) ONE (18:37)
[2020-06-28] MEDS ORDERED: amLODIPine BESYLATE 5 MG TABLET (FP) ONE (18:37)
[2020-06-28] MEDS: metoPROLOL SUCCINATE 25 MG TAB.SR.24H (FP) PO SCH (18:39)
[2020-06-28] MEDS: amLODIPine BESYLATE 5 MG TABLET (FP) PO SCH (18:39)
--- NOTE | 2020-06-28 20:34 | HP ---
Admitting History and Physical - Admission History of Present Illness: Pt is a 70 year old male with history of CKD stage 4/5, IDDM, hypertension, hyperlipidemia, BOBY, CHF, CAD(S/P CABG), Aflutter, and PVD. Pt presented from home with a fall and generalized weakness and noted to have left lower extremity cellulitis with leukocytosis/WBC of 20k and Cr of 4.5. He slid down from his sofa but was too weak to get back up. He denies any sob, chest pain, abdominal pain, fever or chills. Pt had been going to wound care. He denies any confusion/lethargy/weakness. No flank pain. Making urine. Denies any NSAID use. 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: CVA Cardiovascular: Yes: CAD, HTN, Other Renal/: Yes: Renal Failure, Renal Inusuff Infectious Disease: Yes: MRSA (Lt finger abscess) Endocrine: Yes: Diabetes Mellitus Dermatology: Yes: Cellulitis - Past Surgical History Past Surgical History: Yes: Bariatric Surgery, CABG, Carotid Endarterectomy - Smoking History Smoking history: Never smoked Have you smoked in the past 12 months: No If you are a former smoker, when did you quit?: 25 years ago - Alcohol/Substance Use Hx Alcohol Use: No History of Substance Use: reports: None - Social History ADL: Independent History of Recent Travel: No Home Medications - Allergies Allergies/Adverse Reactions: Allergies Allergy/AdvReac Type Severity Reaction Status Date / Time levofloxacin [From Levaquin] Allergy Intermediate Verified 06/27/20 22:15 morphine Allergy Intermediate Vomiting Verified 06/27/20 22:15 codeine AdvReac Verified 06/27/20 22:15 - Home Medications Home Medications: Ambulatory Orders Aspirin Coated [Ecotrin -] 81 mg PO DAILY 11/18/17 Zolpidem Tartrate [Ambien] 10 mg PO HS 01/06/18 Duloxetine HCl 40 mg PO DAILY 07/20/19 Gabapentin [Neurontin -] 100 mg PO BID 04/12/20 Amlodipine Besylate [Norvasc -] 5 mg PO DAILY #30 tablet 04/18/20 Calcium 500Mg/Vit-D 200 Units [Os-Osvaldo 500+D -] 1 tab PO DAILY #30 tab 04/18/20 Metoprolol Succinate [Toprol XL -] 25 mg PO DAILY #30 tab.sr.24h 04/18/20 Insulin (Novolog 70/30) [Novolog Mix 70/30 Vial -] 35 units SQ BIDAC #0 units 05/23/20 Omeprazole 20 mg PO DAILY 06/07/20 Apixaban [Eliquis -] 2.5 mg PO BID tablet 06/09/20 Furosemide [Lasix -] 40 mg PO DAILY tablet 06/09/20 Family Medical History Family History: Unremarkable Review of Systems - Review of Systems Constitutional: reports: Weakness Eyes: reports: No Symptoms HENT: reports: No Symptoms Neck: reports: No Symptoms Cardiovascular: reports: No Symptoms Respiratory: reports: No Symptoms Gastrointestinal: reports: No Symptoms Genitourinary: reports: No Symptoms Physical Examination Vital Signs: Vital Signs Temperature 99.5 F 06/28/20 14:32 Pulse Rate 78 06/28/20 14:32 Respiratory Rate 18 06/28/20 14:32 Blood Pressure 147/67 06/28/20 14:32 O2 Sat by Pulse Oximetry (%) 93 L 06/28/20 14:32 Constitutional: Yes: Well Nourished Eyes: Yes: WNL HENT: Yes: WNL Neck: Yes: WNL, Supple Cardiovascular: Yes: WNL, Regular Rate and Rhythm Respiratory: Yes: WNL, Regular, CTA Bilaterally Gastrointestinal: Yes: WNL, Normal Bowel Sounds, Soft, Abdomen, Obese Extremities: Yes: Erythema Edema: Yes Edema: LLE: Trace, RLE: Trace Neurological: Yes: WNL, Alert, Oriented ...Motor Strength: WNL Labs: CBC, BMP 06/28/20 02:50 06/28/20 02:50 Problem List - Problems (1) Cellulitis Assessment/Plan: Cont IV antibxs ID consult Will get vascular consult Monitor cultures Monitor WBC Code(s): L03.90 - CELLULITIS, UNSPECIFIED (2) ESRF (end stage renal failure) Assessment/Plan: Monitor BUN/creatinine As per renal Code(s): N18.6 - END STAGE RENAL DISEASE (3) Hypertension Assessment/Plan: Cont norvasc/metoprolol Code(s): I10 - ESSENTIAL (PRIMARY) HYPERTENSION Qualifiers: Hypertension type: essential hypertension Qualified Code(s): I10 - Essential (primary) hypertension (4) Diabetes Assessment/Plan: Cont levemir Cont sliding scale w/ coverage Code(s): E11.9 - TYPE 2 DIABETES MELLITUS WITHOUT COMPLICATIONS (5) CHF (congestive heart failure) Assessment/Plan: Cont lasix for now Code(s): I50.9 - HEART FAILURE, UNSPECIFIED (6) Diabetic neuropathy Code(s): E11.40 - TYPE 2 DIABETES MELLITUS WITH DIABETIC NEUROPATHY, UNSP (7) Hx of CABG Code(s): Z95.1 - PRESENCE OF AORTOCORONARY BYPASS GRAFT (8) CAD (coronary artery disease) Code(s): I25.10 - ATHSCL HEART DISEASE OF [place] CORONARY ARTERY W/O ANG PCTRS Qualifiers: Coronary Disease-Associated Artery/Lesion type: [place] artery Three Affiliated vs. transplanted heart: [place] heart Associated angina: without angina Qualified Code(s): I25.10 - Atherosclerotic heart disease of [place] coronary artery without angina pectoris (9) Hyperlipidemia Code(s): E78.5 - HYPERLIPIDEMIA, UNSPECIFIED Qualifiers: Hyperlipidemia type: pure hypercholesterolemia Qualified Code(s): E78.00 - Pure hypercholesterolemia, unspecified; E78.0 - Pure hypercholesterolemia (10) PVD (peripheral vascular disease) Code(s): I73.9 - PERIPHERAL VASCULAR DISEASE, UNSPECIFIED
[2020-06-28] MEDS ORDERED: ZOLPIDEM TARTRATE 5 MG TABLET PO PRN (22:00)
[2020-06-28] MEDS ORDERED: INSULIN (LEVEMIR) 100 UNITS/ML UNITS SQ ONE (22:09)
[2020-06-28] MEDS ORDERED: APIXABAN 5 MG TABLET ONE (22:11)
[2020-06-28] MEDS ORDERED: GABAPENTIN 100 MG CAPSULE ONE (22:13)
[2020-06-28] MEDS: APIXABAN 2.5 MG TABLET PO SCH (22:23)
[2020-06-28] MEDS: GABAPENTIN 100 MG CAPSULE PO SCH (22:24)
[2020-06-28] MEDS: INSULIN (LEVEMIR) 100 UNITS/ML UNITS SQ SCH (22:24)
[2020-06-28] MEDS ORDERED: amLODIPine BESYLATE 2.5 MG TABLET (FP) PO ONE (23:47)
[2020-06-29] MEDS ORDERED: PIPERACILLIN/TAZOBACTAM 2.25 GM VIAL IVPB ONE ×3 (01:06→16:43)
[2020-06-29] MEDS ORDERED: DEXTROSE 5%-WATER - 50 ML IVPB ONE ×3 (01:06→16:43)
[2020-06-29] MEDS: ACETAMINOPHEN 325 MG TABLET (FP) PO PRN ×2 (01:11→21:27)
[2020-06-29] MEDS: PIPERACILLIN/TAZOB 2.25 GM 2.25 GM in DEXTROSE 5%-WATER - 50 ML IVPB SCH ×3 (01:11→17:18)
[2020-06-29] MEDS: INSULIN SLIDING SCALE (NOVOLOG) 1 VIAL SQ SCH ×4 (06:25→21:28)
[2020-06-29 07:05] LABS: BASO % 0.3 % (0-2.0); EOS % 0.3 % (0-4.5); HEMATOCRIT 25.9 % (35.4-49); LYMPH % 5.8 % (8-40); MCH 25.6 pg (25.7-33.7); MCHC 30.8 g/dl (32.0-35.9); MEAN CELL VOLUME 83.1 fl (80-96); MEAN PLT VOLUME 9.6 fl (7.5-11.1); MONO % 8.8 % (3.8-10.2); NEUT % 84.8 % (42.8-82.8); PLATELET COUNT 237 K/MM3 (134-434); RBC 3.12 M/mm3 (4.00-5.60); RDW 15.3 % (11.9-15.9); WHITE BLOOD COUNT 16.6 K/mm3 (4.0-10.0)
[2020-06-29 08:03] LABS: ALBUMIN 1.7 g/dl (3.4-5.0); BILIRUBIN,TOTAL 0.4 mg/dL (0.2-1); BLOOD UREA NITROGEN 58.4 mg/dL (7-18); CALCIUM 7.3 mg/dL (8.5-10.1); CREATININE 4.9 mg/dL (0.55-1.3); POTASSIUM 4.7 mmol/L (3.5-5.1); TOT PROT 5.6 g/dl (6.4-8.2)
--- NOTE | 2020-06-29 09:23 | CONSULT ---
- Consultation REQUESTING PROVIDER: CONSULT REQUEST: We have been asked to surgically evaluate this patient for Left leg cellulitis. PCP:Isa Avila HISTORY OF PRESENT ILLNESS: The patient is a 70 yo male with a history of DM, chronic renal failure and chronic left foot wounds. He came to the hospital to be seen for fall. He states that he slid off of the couch and wasn't able to get up. He has been having weakness but was able to move his extremitites. His was with him at the time. No LOC. He denies any CP/SOB. The wounds that he has have been chronic on his feet. He applies a dry dressing to them and is seen by Dr. Garcia and Dr. Powell in the wound clinic. Last note by Dr. Powell on 06/13 decribes a left 5th lateral metatarsal diabetic wound which gets debridment and puraply graft application. At home he doesn't require any assist devices to ambulate but does use a cane when outside his home. He wears a diabetic shoe on the right and surgical shoe on the left. PMHx: CRF, DM, HTN, Hyperlipidemia, aflutter, peripheral neuropathy PSHx: s/p RUE fistula 06/08/2020 s/p CABG , R CEA and laparoscopic gastric bypass surgery Home Medications Medication Instructions Recorded Aspirin Coated [Ecotrin -] 81 mg PO DAILY 11/18/17 Zolpidem Tartrate [Ambien] 10 mg PO HS 01/06/18 Duloxetine HCl 40 mg PO DAILY 07/20/19 Gabapentin [Neurontin -] 100 mg PO BID 04/12/20 Amlodipine Besylate [Norvasc -] 5 mg PO DAILY #30 tablet 04/18/20 Calcium 500Mg/Vit-D 200 Units 1 tab PO DAILY #30 tab 04/18/20 [Os-Osvaldo 500+D -] Metoprolol Succinate [Toprol XL -] 25 mg PO DAILY #30 tab.sr.24h 04/18/20 Insulin (Novolog 70/30) [Novolog 35 units SQ BIDAC #0 units 05/23/20 Mix 70/30 Vial -] Omeprazole 20 mg PO DAILY 06/07/20 Apixaban [Eliquis -] 2.5 mg PO BID tablet 06/09/20 Furosemide [Lasix -] 40 mg PO DAILY tablet 06/09/20 Allergies Allergy/AdvReac Type Severity Reaction Status Date / Time levofloxacin [From Levaquin] Allergy Intermediate Verified 06/27/20 22:15 morphine Allergy Intermediate Vomiting Verified 06/27/20 22:15 codeine AdvReac Verified 06/27/20 22:15 REVIEW OF SYSTEMS: CONSTITUTIONAL: Absent: fever, chills Present:generalized weakness CARDIOVASCULAR: Absent: chest pain, syncope RESPIRATORY: Absent: cough, shortness of breath GASTROINTESTINAL: Absent: abdominal pain, abdominal distension, nausea, vomiting, diarrhea colonoscopy 6 years ago and was normal GENITOURINARY: Absent: dysuria,hematuria NEUROLOGIC: Absent: headache,paresthesias, dizziness PHYSICAL EXAM: GENERAL: Awake, alert, and fully oriented, in no acute distress. ABDOMEN: Soft, nontender, not distended, normoactive bowel sounds, no guarding, no rebound, no masses. No organomegaly. UPPER EXTREMITIES: 2+ DP pulses, warm, well-perfused. No cyanosis. Cap refill <2 seconds. No peripheral edema. RUE with healed incision and palpation thrill. LOWER EXTREMITIES: Left foot: +2 DP with doppler and monophasic PT. Foot swollen and mild erythema to forefoot and mid gu. Left lateral 5th metarsal wound 3x4cm with fibrograular wound base and surrounding hyperkatotic borders. no drainage noted and wound doesn't probe. 4th web toe base with wound 1cm by 2mm deep/no tracking with probe or drainage. Right foot: no erythema. Callour to right heel 3x 3cm, +2 dp/pt pulse with doppler NEUROLOGICAL: Normal speech, gait not observed. Vital Signs Temperature 97.9 F 06/29/20 06:00 Pulse Rate 82 06/29/20 06:00 Respiratory Rate 20 06/29/20 06:00 Blood Pressure 126/55 L 06/29/20 06:00 O2 Sat by Pulse Oximetry (%) 95 06/29/20 06:00 Lab Results WBC 16.6 K/mm3 (4.0-10.0) H 06/29/20 06:37 RBC 3.12 M/mm3 (4.00-5.60) L 06/29/20 06:37 Hgb 8.0 GM/dL (11.7-16.9) L 06/29/20 06:37 Hct 25.9 % (35.4-49) L 06/29/20 06:37 MCV 83.1 fl (80-96) 06/29/20 06:37 MCHC 30.8 g/dl (32.0-35.9) L 06/29/20 06:37 RDW 15.3 % (11.9-15.9) 06/29/20 06:37 Plt Count 237 K/MM3 (134-434) 06/29/20 06:37 Sodium 135 mmol/L (136-145) L 06/29/20 06:37 Potassium 4.7 mmol/L (3.5-5.1) 06/29/20 06:37 Chloride 105 mmol/L (98-107) 06/29/20 06:37 Carbon Dioxide 19 mmol/L (21-32) L 06/29/20 06:37 Anion Gap 11 MMOL/L (8-16) 06/29/20 06:37 BUN 58.4 mg/dL (7-18) H 06/29/20 06:37 Creatinine 4.9 mg/dL (0.55-1.3) H 06/29/20 06:37 Random Glucose 306 mg/dL (74-106) H 06/29/20 06:37 Calcium 7.3 mg/dL (8.5-10.1) L 06/29/20 06:37 7/16 MRI- without any evidence of osteomyelitits 06/22 Left foot xray: no acute pathology. No fractures/dislocations Microbiology 06/28/20 04:50 Urine - Urine Clean Catch Urine Culture - Final NO GROWTH OBTAINED 06/28/20 03:40 Blood - Peripheral Venous Blood Culture - Preliminary NO GROWTH OBTAINED AFTER 24 HOURS, INCUBATION TO CONTINUE FOR 4 DAYS. 06/28/20 03:40 Blood - Peripheral Venous Blood Culture - Preliminary NO GROWTH OBTAINED AFTER 24 HOURS, INCUBATION TO CONTINUE FOR 4 DAYS. Laboratory Tests 06/28/20 04:00 COVID-19 (PRISCILLA) Not detected Problem List - Problems (1) Diabetic ulcer of left foot Assessment/Plan: chronic left foot ulcer without any evidence drainage or tracking. Cellulitis to his foot/left leg. Recommend IV abx and monitor fever curve and leukocytosis. If no improvement recommend CT scan of Lower ext to r/o collection. Local wound care D/w Dr. Garcia Problems reviewed: Yes Code(s): E11.621 - TYPE 2 DIABETES MELLITUS WITH FOOT ULCER; L97.529 - NON- PRESSURE CHRONIC ULCER OTH PRT LEFT FOOT W UNSP SEVERITY Qualifiers: Diabetic foot ulcer location: unspecified part of foot Diabetes mellitus type: type 2 Non-pressure ulcer stage: unspecified non-pressure ulcer stage Qualified Code(s): E11.621 - Type 2 diabetes mellitus with foot ulcer; L97.529 - Non-pressure chronic ulcer of other part of left foot with unspecified severity
[2020-06-29] MEDS: metoPROLOL SUCCINATE 25 MG TAB.SR.24H (FP) PO SCH (09:48)
[2020-06-29] MEDS: amLODIPine BESYLATE 5 MG TABLET (FP) PO SCH (09:49)
[2020-06-29] MEDS: ASPIRIN COATED 81 MG TABLET.EC PO SCH (09:49)
[2020-06-29] MEDS: PANTOPRAZOLE 20 MG TABLET PO SCH (09:49)
[2020-06-29] MEDS: APIXABAN 2.5 MG TABLET PO SCH ×2 (09:49→21:28)
[2020-06-29] MEDS: GABAPENTIN 100 MG CAPSULE PO SCH ×2 (09:49→21:28)
[2020-06-29] MEDS ORDERED: FUROSEMIDE 40 MG TABLET (FP) PO SCH (10:00)
[2020-06-29] MEDS ORDERED: INSULIN (NOVOLOG) ASPART 100 UNITS/ML 10ML VIAL ONE ×3 (11:25→20:54)
[2020-06-29] MEDS: DULoxetine HCL 20 MG CAPSULE.DR PO SCH (11:30)
--- NOTE | 2020-06-29 11:59 | PN ---
Progress Note, Physician History of Present Illness: feels better today cellulitis improving swelling better still very weak - Current Medication List Current Medications: Active Medications Acetaminophen (Tylenol -) 650 mg PO Q4H PRN PRN Reason: FEVER Last Admin: 06/29/20 01:11 Dose: 650 mg Documented by: Amlodipine Besylate (Norvasc -) 5 mg PO DAILY [facility] Last Admin: 06/29/20 09:49 Dose: 5 mg Documented by: Apixaban (Eliquis -) 2.5 mg PO BID [facility] Last Admin: 06/29/20 09:49 Dose: 2.5 mg Documented by: Aspirin (Ecotrin -) 81 mg PO DAILY [facility] Last Admin: 06/29/20 09:49 Dose: 81 mg Documented by: Duloxetine HCl (Cymbalta -) 40 mg PO DAILY [facility] Last Admin: 06/29/20 11:30 Dose: 40 mg Documented by: Furosemide (Lasix -) 40 mg PO DAILY [facility] Last Admin: 06/29/20 09:49 Dose: 40 mg Documented by: Gabapentin (Neurontin -) 100 mg PO BID [facility] Last Admin: 06/29/20 09:49 Dose: 100 mg Documented by: Piperacillin Sod/Tazobactam (Sod 2.25 gm/ Dextrose) 50 mls @ 100 mls/hr IVPB Q8H-IV [facility]; Protocol Last Admin: 06/29/20 09:50 Dose: 100 mls/hr Documented by: Insulin Aspart (Novolog Vial Sliding Scale -) 1 vial SQ ACHS [facility]; Protocol Last Admin: 06/29/20 11:31 Dose: 6 units Documented by: Insulin Detemir (Levemir Vial) 30 units SQ HS [facility] Last Admin: 06/28/20 22:24 Dose: 30 unit Documented by: Metoprolol Succinate (Toprol Xl -) 25 mg PO DAILY [facility] Last Admin: 06/29/20 09:48 Dose: 25 mg Documented by: Pantoprazole Sodium (Protonix -) 20 mg PO DAILY [facility] Last Admin: 06/29/20 09:49 Dose: 20 mg Documented by: Zolpidem Tartrate (Ambien -) 5 mg PO HS PRN PRN Reason: INSOMNIA Last Admin: 06/29/20 00:02 Dose: 5 mg Documented by: - Objective Vital Signs: Vital Signs Temperature 98.4 F 06/29/20 10:00 Pulse Rate 76 06/29/20 10:00 Respiratory Rate 20 06/29/20 10:00 Blood Pressure 146/68 06/29/20 10:00 O2 Sat by Pulse Oximetry (%) 100 06/29/20 10:00 Constitutional: Yes: Calm, Mild Distress, Other (weak) Cardiovascular: Yes: Other Respiratory: Yes: Regular, CTA Bilaterally Gastrointestinal: Yes: Normal Bowel Sounds, Soft Musculoskeletal: Yes: WNL Extremities: Yes: Erythema, Other Neurological: Yes: Alert, Oriented Psychiatric: Yes: Alert, Oriented Labs: CBC, BMP 06/29/20 06:37 06/29/20 06:37 Assessment/Plan Problem List - Problems (1) Cellulitis Code(s): L03.90 - CELLULITIS, UNSPECIFIED (2) ESRF (end stage renal failure) Code(s): N18.6 - END STAGE RENAL DISEASE (3) Hypertension Code(s): I10 - ESSENTIAL (PRIMARY) HYPERTENSION Qualifiers: Hypertension type: essential hypertension Qualified Code(s): I10 - Essential (primary) hypertension (4) Diabetes Code(s): E11.9 - TYPE 2 DIABETES MELLITUS WITHOUT COMPLICATIONS (5) CHF (congestive heart failure) Code(s): I50.9 - HEART FAILURE, UNSPECIFIED (6) Diabetic neuropathy Code(s): E11.40 - TYPE 2 DIABETES MELLITUS WITH DIABETIC NEUROPATHY, UNSP (7) Hx of CABG Code(s): Z95.1 - PRESENCE OF AORTOCORONARY BYPASS GRAFT (8) CAD (coronary artery disease) Code(s): I25.10 - ATHSCL HEART DISEASE OF [place] CORONARY ARTERY W/O ANG PCTRS Qualifiers: Coronary Disease-Associated Artery/Lesion type: [place] artery [place] vs. transplanted heart: [place] heart Associated angina: without angina Qualified Code(s): I25.10 - Atherosclerotic heart disease of [place] coronary artery witho ut angina pectoris (9) Hyperlipidemia Code(s): E78.5 - HYPERLIPIDEMIA, UNSPECIFIED Qualifiers: Hyperlipidemia type: pure hypercholesterolemia Qualified Code(s): E78.00 - Pure hypercholesterolemia, unspecified; E78.0 - Pure hypercholesterolemia (10) PVD (peripheral vascular disease) Code(s): I73.9 - PERIPHERAL VASCULAR DISEASE, UNSPECIFIED plan continue abx monitor wbc elevation of the leg rest as per the team
--- NOTE | 2020-06-29 12:50 | PN ---
Progress Note, Physician Chief Complaint: Weakness History of Present Illness: Seen and examined at the bedside drowsy but arouseable no sob, cp, abdominal pain + Fever last night took ambien last night as well - Current Medication List Current Medications: Active Medications Acetaminophen (Tylenol -) 650 mg PO Q4H PRN PRN Reason: FEVER Last Admin: 06/29/20 01:11 Dose: 650 mg Documented by: Amlodipine Besylate (Norvasc -) 5 mg PO DAILY [facility] Last Admin: 06/29/20 09:49 Dose: 5 mg Documented by: Apixaban (Eliquis -) 2.5 mg PO BID [facility] Last Admin: 06/29/20 09:49 Dose: 2.5 mg Documented by: Aspirin (Ecotrin -) 81 mg PO DAILY [facility] Last Admin: 06/29/20 09:49 Dose: 81 mg Documented by: Duloxetine HCl (Cymbalta -) 40 mg PO DAILY [facility] Last Admin: 06/29/20 11:30 Dose: 40 mg Documented by: Gabapentin (Neurontin -) 100 mg PO BID [facility] Last Admin: 06/29/20 09:49 Dose: 100 mg Documented by: Piperacillin Sod/Tazobactam (Sod 2.25 gm/ Dextrose) 50 mls @ 100 mls/hr IVPB Q8H-IV [facility]; Protocol Last Admin: 06/29/20 09:50 Dose: 100 mls/hr Documented by: Insulin Aspart (Novolog Vial Sliding Scale -) 1 vial SQ ACHS [facility]; Protocol Last Admin: 06/29/20 11:31 Dose: 6 units Documented by: Insulin Detemir (Levemir Vial) 30 units SQ HS [facility] Last Admin: 06/28/20 22:24 Dose: 30 unit Documented by: Metoprolol Succinate (Toprol Xl -) 25 mg PO DAILY [facility] Last Admin: 06/29/20 09:48 Dose: 25 mg Documented by: Pantoprazole Sodium (Protonix -) 20 mg PO DAILY [facility] Last Admin: 06/29/20 09:49 Dose: 20 mg Documented by: - Objective Vital Signs: Vital Signs Temperature 98.4 F 06/29/20 10:00 Pulse Rate 76 06/29/20 10:00 Respiratory Rate 20 06/29/20 10:00 Blood Pressure 146/68 06/29/20 10:00 O2 Sat by Pulse Oximetry (%) 100 06/29/20 10:00 Constitutional: Yes: No Distress, Calm HENT: Yes: Atraumatic Neck: Yes: Supple Cardiovascular: Yes: Regular Rate and Rhythm Respiratory: Yes: Regular Gastrointestinal: Yes: Soft Genitourinary: No: Bladder Distention Extremities: Yes: Erythema. No: Cyanosis Edema: Yes Edema: LLE: Trace Neurological: Yes: Alert Labs: CBC, BMP 06/29/20 06:37 06/29/20 06:37 Assessment/Plan 70 year old male with history of CKD stage 4/5, IDDM, hypertension, hyperlipidemia, BOBY, CHF, Aflutter, PVD who presented from home with a fall and generalized weakness and noted to have left lower extremity cellulitis with leukocytosis/WBC of 20k and Cr of 4.5. 1. Lower extremity cellulitis r/o osteomylitis 2. CKD stage 4/5 3. Anemia 4. Hx of CHF w/o evidence of acute exacerbation 5. Hypertension 6. Hyperlipidemia Continue antibiotics for LE cellulitis Vanco level is ~10 today, will redose 1g Imaging studies of the lower extremity as per vascular/ID Check blood cultures BUN/Cr slightly trending up no emergent indication for GROUNDSKEEPING MAINTENANCE will trend renal function and electrolytes closely Renal diet Hold Lasix for now No JEWEL/ARB given low eGFR D/c Ambien given lethargy Thank you Jonah Painting DO
[2020-06-29] MEDS ORDERED: VANCOMYCIN 1 GM in D5W (PRE-DOCKED) 1,000 MG/250 ML IVPB ONE (13:00)
--- NOTE | 2020-06-29 17:53 | PN ---
Progress Note, Physician - Current Medication List Current Medications: Active Medications Acetaminophen (Tylenol -) 650 mg PO Q4H PRN PRN Reason: FEVER Last Admin: 06/29/20 01:11 Dose: 650 mg Documented by: Amlodipine Besylate (Norvasc -) 5 mg PO DAILY [facility] Last Admin: 06/29/20 09:49 Dose: 5 mg Documented by: Apixaban (Eliquis -) 2.5 mg PO BID [facility] Last Admin: 06/29/20 09:49 Dose: 2.5 mg Documented by: Aspirin (Ecotrin -) 81 mg PO DAILY [facility] Last Admin: 06/29/20 09:49 Dose: 81 mg Documented by: Duloxetine HCl (Cymbalta -) 40 mg PO DAILY [facility] Last Admin: 06/29/20 11:30 Dose: 40 mg Documented by: Gabapentin (Neurontin -) 100 mg PO BID [facility] Last Admin: 06/29/20 09:49 Dose: 100 mg Documented by: Piperacillin Sod/Tazobactam (Sod 2.25 gm/ Dextrose) 50 mls @ 100 mls/hr IVPB Q8H-IV [facility]; Protocol Last Admin: 06/29/20 17:18 Dose: 100 mls/hr Documented by: Insulin Aspart (Novolog Vial Sliding Scale -) 1 vial SQ ACHS [facility]; Protocol Last Admin: 06/29/20 17:18 Dose: 2 units Documented by: Insulin Detemir (Levemir Vial) 30 units SQ HS [facility] Last Admin: 06/28/20 22:24 Dose: 30 unit Documented by: Metoprolol Succinate (Toprol Xl -) 25 mg PO DAILY [facility] Last Admin: 06/29/20 09:48 Dose: 25 mg Documented by: Pantoprazole Sodium (Protonix -) 20 mg PO DAILY [facility] Last Admin: 06/29/20 09:49 Dose: 20 mg Documented by: - Objective Vital Signs: Vital Signs Temperature 99.3 F 06/29/20 15:06 Pulse Rate 73 06/29/20 15:06 Respiratory Rate 20 06/29/20 15:06 Blood Pressure 130/55 L 06/29/20 15:06 O2 Sat by Pulse Oximetry (%) 94 L 06/29/20 15:06 Constitutional: Yes: No Distress HENT: Yes: Atraumatic Neck: Yes: Supple Cardiovascular: Yes: Regular Rate and Rhythm Respiratory: Yes: Rhonchi Gastrointestinal: Yes: Normal Bowel Sounds Extremities: Yes: Other (llex cellulitis) Neurological: Yes: Alert, Oriented Labs: CBC, BMP 06/29/20 06:37 06/29/20 06:37 Problem List - Problems (1) Cellulitis Assessment/Plan: iv abx id on board Code(s): L03.90 - CELLULITIS, UNSPECIFIED (2) Diabetes Assessment/Plan: on insulin bgms Code(s): E11.9 - TYPE 2 DIABETES MELLITUS WITHOUT COMPLICATIONS (3) ARF (acute renal failure) Assessment/Plan: monitor renal on board Code(s): N17.9 - ACUTE KIDNEY FAILURE, UNSPECIFIED (4) Hx of CABG Code(s): Z95.1 - PRESENCE OF AORTOCORONARY BYPASS GRAFT (5) PAD (peripheral artery disease) Code(s): I73.9 - PERIPHERAL VASCULAR DISEASE, UNSPECIFIED (6) Hypertension Assessment/Plan: on meds monitor Code(s): I10 - ESSENTIAL (PRIMARY) HYPERTENSION Qualifiers: Hypertension type: essential hypertension Qualified Code(s): I10 - Essential (primary) hypertension (7) Atrial fibrillation Code(s): I48.91 - UNSPECIFIED ATRIAL FIBRILLATION Assessment/Plan COVERING FOR DR ADAL BRUCE
[2020-06-29] MEDS: ZOLPIDEM TARTRATE 5 MG TABLET PO PRN (21:28)
[2020-06-29] MEDS: INSULIN (LEVEMIR) 100 UNITS/ML UNITS SQ SCH (21:29)
[2020-06-30] MEDS ORDERED: DEXTROSE 5%-WATER - 50 ML IVPB ONE ×3 (01:06→17:04)
[2020-06-30] MEDS ORDERED: PIPERACILLIN/TAZOBACTAM 2.25 GM VIAL IVPB ONE ×3 (01:06→17:04)
[2020-06-30] MEDS: PIPERACILLIN/TAZOB 2.25 GM 2.25 GM in DEXTROSE 5%-WATER - 50 ML IVPB SCH ×3 (01:11→17:13)
[2020-06-30] MEDS: INSULIN SLIDING SCALE (NOVOLOG) 1 VIAL SQ SCH ×4 (06:16→21:53)
[2020-06-30 07:40] LABS: BASO % 0.3 % (0-2.0); EOS % 1.5 % (0-4.5); HEMATOCRIT 25.7 % (35.4-49); MCH 25.6 pg (25.7-33.7); MEAN CELL VOLUME 82.5 fl (80-96); MEAN PLT VOLUME 9.6 fl (7.5-11.1); MONO % 8.1 % (3.8-10.2); NEUT % 83.1 % (42.8-82.8); PLATELET COUNT 264 K/MM3 (134-434); RBC 3.11 M/mm3 (4.00-5.60); RDW 15.4 % (11.9-15.9)
[2020-06-30 08:00] LABS: ALBUMIN 1.5 g/dl (3.4-5.0); BILIRUBIN,TOTAL 0.4 mg/dL (0.2-1); BLOOD UREA NITROGEN 63.2 mg/dL (7-18); CALCIUM 7.2 mg/dL (8.5-10.1); CREATININE 5.4 mg/dL (0.55-1.3); POTASSIUM 4.1 mmol/L (3.5-5.1); TOT PROT 5.5 g/dl (6.4-8.2)
--- NOTE | 2020-06-30 09:08 | PN ---
Progress Note, Physician History of Present Illness: feels better today cellulitis improving swelling better still weak - Current Medication List Current Medications: Active Medications Acetaminophen (Tylenol -) 650 mg PO Q4H PRN PRN Reason: FEVER Last Admin: 06/29/20 21:27 Dose: 650 mg Documented by: Amlodipine Besylate (Norvasc -) 5 mg PO DAILY [facility] Last Admin: 06/29/20 09:49 Dose: 5 mg Documented by: Apixaban (Eliquis -) 2.5 mg PO BID [facility] Last Admin: 06/29/20 21:28 Dose: 2.5 mg Documented by: Aspirin (Ecotrin -) 81 mg PO DAILY [facility] Last Admin: 06/29/20 09:49 Dose: 81 mg Documented by: Duloxetine HCl (Cymbalta -) 40 mg PO DAILY [facility] Last Admin: 06/29/20 11:30 Dose: 40 mg Documented by: Gabapentin (Neurontin -) 100 mg PO BID [facility] Last Admin: 06/29/20 21:28 Dose: 100 mg Documented by: Piperacillin Sod/Tazobactam (Sod 2.25 gm/ Dextrose) 50 mls @ 100 mls/hr IVPB Q8 H-IV [facility]; Protocol Last Admin: 06/30/20 01:11 Dose: 100 mls/hr Documented by: Insulin Aspart (Novolog Vial Sliding Scale -) 1 vial SQ [facility]; Protocol Last Admin: 06/30/20 06:16 Dose: Not Given Documented by: Insulin Detemir (Levemir Vial) 30 units SQ HS [facility] Last Admin: 06/29/20 21:29 Dose: 30 unit Documented by: Metoprolol Succinate (Toprol Xl -) 25 mg PO DAILY [facility] Last Admin: 06/29/20 09:48 Dose: 25 mg Documented by: Pantoprazole Sodium (Protonix -) 20 mg PO DAILY [facility] Last Admin: 06/29/20 09:49 Dose: 20 mg Documented by: Zolpidem Tartrate (Ambien -) 5 mg PO HS PRN PRN Reason: INSOMNIA Last Admin: 06/29/20 21:28 Dose: 5 mg Documented by: - Objective Vital Signs: Vital Signs Temperature 99.4 F 06/30/20 06:00 Pulse Rate 75 06/30/20 06:00 Respiratory Rate 20 06/30/20 06:00 Blood Pressure 153/62 06/30/20 06:00 O2 Sat by Pulse Oximetry (%) 97 06/30/20 06:00 Constitutional: Yes: No Distress, Calm Cardiovascular: Yes: S1, S2 Respiratory: Yes: Regular, CTA Bilaterally Gastrointestinal: Yes: Normal Bowel Sounds, Soft Musculoskeletal: Yes: WNL Extremities: Yes: Other Neurological: Yes: Alert, Oriented Psychiatric: Yes: Alert, Oriented Labs: CBC, BMP 06/30/20 06:38 06/30/20 06:38 Assessment/Plan Problem List - Problems (1) Cellulitis Code(s): L03.90 - CELLULITIS, UNSPECIFIED (2) ESRF (end stage renal failure) Code(s): N18.6 - END STAGE RENAL DISEASE (3) Hypertension Code(s): I10 - ESSENTIAL (PRIMARY) HYPERTENSION Qualifiers: Hypertension type: essential hypertension Qualified Code(s): I10 - Essential (primary) hypertension (4) Diabetes Code(s): E11.9 - TYPE 2 DIABETES MELLITUS WITHOUT COMPLICATIONS (5) CHF (congestive heart failure) Code(s): I50.9 - HEART FAILURE, UNSPECIFIED (6) Diabetic neuropathy Code(s): E11.40 - TYPE 2 DIABETES MELLITUS WITH DIABETIC NEUROPATHY, UNSP (7) Hx of CABG Code(s): Z95.1 - PRESENCE OF AORTOCORONARY BYPASS GRAFT (8) CAD (coronary artery disease) Code(s): I25.10 - ATHSCL HEART DISEASE OF [place] CORONARY ARTERY W/O ANG PCTRS Qualifiers: Coronary Disease-Associated Artery/Lesion type: [place] artery [place] vs. transplanted heart: [place] heart Associated angina: without angina Qualified Code(s): I25.10 - Atherosclerotic heart disease of [place] coronary artery without angina pectoris (9) Hyperlipidemia Code(s): E78.5 - HYPERLIPIDEMIA, UNSPECIFIED Qualifiers: Hyperlipidemia type: pure hypercholesterolemia Qualified Code(s): E78.00 - Pure hypercholesterolemia, unspecified; E78.0 - Pure hypercholesterolemia (10) PVD (peripheral vascular disease) Code(s): I73.9 - PERIPHERAL VASCULAR DISEASE, UNSPECIFIED plan continue abx monitor wbc elevation of the leg rest as per the team
[2020-06-30] MEDS ORDERED: INSULIN (NOVOLOG) ASPART 100 UNITS/ML 10ML VIAL ONE ×2 (11:30→21:44)
[2020-06-30] MEDS: PANTOPRAZOLE 20 MG TABLET PO SCH (11:34)
[2020-06-30] MEDS: metoPROLOL SUCCINATE 25 MG TAB.SR.24H (FP) PO SCH (11:34)
[2020-06-30] MEDS: GABAPENTIN 100 MG CAPSULE PO SCH ×2 (11:34→21:53)
[2020-06-30] MEDS: DULoxetine HCL 20 MG CAPSULE.DR PO SCH (11:34)
[2020-06-30] MEDS: ASPIRIN COATED 81 MG TABLET.EC PO SCH (11:34)
[2020-06-30] MEDS: APIXABAN 2.5 MG TABLET PO SCH ×2 (11:35→21:53)
[2020-06-30] MEDS: amLODIPine BESYLATE 5 MG TABLET (FP) PO SCH (11:35)
--- NOTE | 2020-06-30 12:56 | PN ---
Progress Note, Physician - Current Medication List Current Medications: Active Medications Acetaminophen (Tylenol -) 650 mg PO Q4H PRN PRN Reason: FEVER Last Admin: 06/29/20 21:27 Dose: 650 mg Documented by: Amlodipine Besylate (Norvasc -) 5 mg PO DAILY [facility] Last Admin: 06/30/20 11:35 Dose: 5 mg Documented by: Apixaban (Eliquis -) 2.5 mg PO BID [facility] Last Admin: 06/30/20 11:35 Dose: 2.5 mg Documented by: Aspirin (Ecotrin -) 81 mg PO DAILY [facility] Last Admin: 06/30/20 11:34 Dose: 81 mg Documented by: Duloxetine HCl (Cymbalta -) 40 mg PO DAILY [facility] Last Admin: 06/30/20 11:34 Dose: 40 mg Documented by: Gabapentin (Neurontin -) 100 mg PO BID [facility] Last Admin: 06/30/20 11:34 Dose: 100 mg Documented by: Piperacillin Sod/Tazobactam (Sod 2.25 gm/ Dextrose) 50 mls @ 100 mls/hr IVPB Q8H-IV [facility]; Protocol Last Admin: 06/30/20 11:34 Dose: 100 mls/hr Documented by: Insulin Aspart (Novolog Vial Sliding Scale -) [address] [facility]; Protocol Last Admin: 06/30/20 11:35 Dose: Not Given Documented by: Insulin Detemir (Levemir Vial) 30 units SQ HS [facility] Last Admin: 06/29/20 21:29 Dose: 30 unit Documented by: Metoprolol Succinate (Toprol Xl -) 25 mg PO DAILY [facility] Last Admin: 06/30/20 11:34 Dose: 25 mg Documented by: Pantoprazole Sodium (Protonix -) 20 mg PO DAILY [facility] Last Admin: 06/30/20 11:34 Dose: 20 mg Documented by: Zolpidem Tartrate (Ambien -) 5 mg PO HS PRN PRN Reason: INSOMNIA Last Admin: 06/29/20 21:28 Dose: 5 mg Documented by: - Objective Vital Signs: Vital Signs Temperature 99.6 F 06/30/20 10:00 Pulse Rate 82 06/30/20 10:00 Respiratory Rate 19 06/30/20 10:00 Blood Pressure 153/70 06/30/20 10:00 O2 Sat by Pulse Oximetry (%) 97 06/30/20 10:00 Constitutional: Yes: No Distress HENT: Yes: Atraumatic Neck: Yes: Supple Cardiovascular: Yes: Regular Rate and Rhythm Respiratory: Yes: CTA Bilaterally Gastrointestinal: Yes: Normal Bowel Sounds Extremities: Yes: Other (LLEX CELLULITIS) Neurological: Yes: Alert, Oriented Labs: CBC, BMP 06/30/20 06:38 06/30/20 06:38 Problem List - Problems (1) Cellulitis Assessment/Plan: iv abx id on board Code(s): L03.90 - CELLULITIS, UNSPECIFIED (2) Diabetes Assessment/Plan: on insulin bgms Code(s): E11.9 - TYPE 2 DIABETES MELLITUS WITHOUT COMPLICATIONS (3) ARF (acute renal failure) Assessment/Plan: monitor renal on board Code(s): N17.9 - ACUTE KIDNEY FAILURE, UNSPECIFIED (4) Hx of CABG Code(s): Z95.1 - PRESENCE OF AORTOCORONARY BYPASS GRAFT (5) PAD (peripheral artery disease) Code(s): I73.9 - PERIPHERAL VASCULAR DISEASE, UNSPECIFIED (6) Hypertension Assessment/Plan: on meds monitor Code(s): I10 - ESSENTIAL (PRIMARY) HYPERTENSION Qualifiers: Hypertension type: essential hypertension Qualified Code(s): I10 - Ess ential (primary) hypertension (7) Atrial fibrillation Code(s): I48.91 - UNSPECIFIED ATRIAL FIBRILLATION
--- NOTE | 2020-06-30 16:26 | PN ---
Progress Note (short form) - Note Progress Note: Vascular surgery: Pt states that he isn 't having any pain in his foot. Vital Signs Period Temp Pulse Resp BP Sys/Snow Pulse Ox Last 24 Hr 98.6 F-102.9 F 75-86 19-22 133-153/56-70 91-99 GEN: A&0x3, NAD Left foot: decreased swelling and edema to the LLE. His forefoot remains erythematous with blanching on the dorsal aspect. No drainage noted from left 5th metatarsal wound(dressing dry) from yesterday. Wound didn't probe with exam yesterday and today, no purulent drainage with palpation. CBC, BMP 06/30/20 06:38 06/30/20 06:[address] scan: No evidence of collection SQ edema and Soft tissue swelling A/P; 70 yo male with chronic Left foot ulcer and now with erythema/fevers and swelling His leukocytosis has improved but had continued fevers. The LLE is less swollen and with decreased edema and CT scan was obtained to r/o collection. No collections seen S/w Dr. Garcia and recommend to continue IV abx and dry dressing Local wd care with xeroform/Kerlix daily Consult placed for Dr. Powell, the patient was also seen by him in the clinic Problem List - Problems (1) Diabetic ulcer of left foot Code(s): E11.621 - TYPE 2 DIABETES MELLITUS WITH FOOT ULCER; L97.529 - NON- PRESSURE CHRONIC ULCER OTH PRT LEFT FOOT W UNSP SEVERITY Qualifiers: Diabetic foot ulcer location: unspecified part of foot Diabetes mellitus type: type 2 Non-pressure ulcer stage: unspecified non-pressure ulcer stage Qualified Code(s): E11.621 - Type 2 diabetes mellitus with foot ulcer; L97.529 - Non-pressure chronic ulcer of other part of left foot with unspecified severity
--- NOTE | 2020-06-30 16:43 | PN ---
Progress Note, Physician Chief Complaint: Weakness History of Present Illness: Seen and examined at the bedside awake and alert offers no acute complaints and feels better making urine denies any shortness of breath, chest pain, abdominal pain, fever or chills s/p CT of the lower extremity - Current Medication List Current Medications: Active Medications Acetaminophen (Tylenol -) 650 mg PO Q4H PRN PRN Reason: FEVER Last Admin: 06/29/20 21:27 Dose: 650 mg Documented by: Amlodipine Besylate (Norvasc -) 5 mg PO DAILY [facility] Last Admin: 06/30/20 11:35 Dose: 5 mg Documented by: Apixaban (Eliquis -) 2.5 mg PO BID [facility] Last Admin: 06/30/20 11:35 Dose: 2.5 mg Documented by: Aspirin (Ecotrin -) 81 mg PO DAILY [facility] Last Admin: 06/30/20 11:34 Dose: 81 mg Documented by: Duloxetine HCl (Cymbalta -) 40 mg PO DAILY [facility] Last Admin: 06/30/20 11:34 Dose: 40 mg Documented by: Gabapentin (Neurontin -) 100 mg PO BID [facility] Last Admin: 06/30/20 11:34 Dose: 100 mg Documented by: Piperacillin Sod/Tazobactam (Sod 2.25 gm/ Dextrose) 50 mls @ 100 mls/hr IVPB Q8H-IV [facility]; Protocol Last Admin: 06/30/20 11:34 Dose: 100 mls/hr Documented by: Insulin Aspart (Novolog Vial Sliding Scale -) 1 vial SQ [facility]; Protocol Last Admin: 06/30/20 11:35 Dose: Not Given Documented by: Insulin Detemir (Levemir Vial) 30 units SQ HS [facility] Last Admin: 06/29/20 21:29 Dose: 30 unit Documented by: Metoprolol Succinate (Toprol Xl -) 25 mg PO DAILY [facility] Last Admin: 06/30/20 11:34 Dose: 25 mg Documented by: Pantoprazole Sodium (Protonix -) 20 mg PO DAILY [facility] Last Admin: 06/30/20 11:34 Dose: 20 mg Documented by: Zolpidem Tartrate (Ambien -) 5 mg PO HS PRN PRN Reason: INSOMNIA Last Admin: 06/29/20 21:28 Dose: 5 mg Documented by: - Objective Vital Signs: Vital Signs Temperature 99.6 F 06/30/20 10:00 Pulse Rate 82 06/30/20 10:00 Respiratory Rate 19 06/30/20 10:00 Blood Pressure 153/70 06/30/20 10:00 O2 Sat by Pulse Oximetry (%) 97 06/30/20 10:00 Constitutional: Yes: No Distress, Calm HENT: Yes: Atraumatic Neck: Yes: Supple Cardiovascular: Yes: Regular Rate and Rhythm Respiratory: Yes: Regular, CTA Bilaterally. No: Rales, SOB Gastrointestinal: Yes: Soft, Abdomen, Obese Genitourinary: No: Bladder Distention Edema: Yes Edema: LLE: Trace Labs: CBC, BMP 06/30/20 06:38 06/30/20 06:38 Assessment/Plan 70 year old male with history of CKD stage 4/5, IDDM, hypertension, hyperlipidemia, BOBY, CHF, Aflutter, PVD who presented from home with a fall and generalized weakness and noted to have left lower extremity cellulitis with leukocytosis/WBC of 20k and Cr of 4.5. 1. Lower extremity cellulitis r/o osteomylitis 2. CKD stage 4/5 3. Anemia 4. Hx of CHF w/o evidence of acute exacerbation 5. Hypertension 6. Hyperlipidemia BUN/Cr trending up Appears euvolemic on examination No overt electrolyte or acid/base disturbances If renal function continues to worsen during the admission may consider starting dialysis given pt has advanced underlying CKD. will continue to hold diuretics for now Continue antibiotics for LE cellulitis Imaging studies showed no abcess or collection f/u final cultures BUN/Cr slightly trending up Renal diet No JEWEL/ARB given low eGFR Thank you Jonah Painting DO
[2020-06-30] MEDS: ACETAMINOPHEN 325 MG TABLET (FP) PO PRN (21:52)
[2020-06-30] MEDS: ZOLPIDEM TARTRATE 5 MG TABLET PO PRN (21:53)
[2020-06-30] MEDS: INSULIN (LEVEMIR) 100 UNITS/ML UNITS SQ SCH (21:53)
[2020-07-01] MEDS ORDERED: PIPERACILLIN/TAZOBACTAM 2.25 GM VIAL IVPB ONE ×3 (01:31→16:53)
[2020-07-01] MEDS ORDERED: DEXTROSE 5%-WATER - 50 ML IVPB ONE ×3 (01:31→16:53)
[2020-07-01] MEDS: PIPERACILLIN/TAZOB 2.25 GM 2.25 GM in DEXTROSE 5%-WATER - 50 ML IVPB SCH ×3 (01:48→17:11)
[2020-07-01] MEDS: INSULIN SLIDING SCALE (NOVOLOG) 1 VIAL SQ SCH ×4 (06:14→21:21)
[2020-07-01 07:18] LABS: HEMATOCRIT 24.6 % (35.4-49); HEMOGLOBIN 7.7 GM/dL (11.7-16.9); MCH 25.9 pg (25.7-33.7); MCHC 31.2 g/dl (32.0-35.9); MEAN CELL VOLUME 83.2 fl (80-96); MEAN PLT VOLUME 9.4 fl (7.5-11.1); PLATELET COUNT 279 K/MM3 (134-434); RBC 2.96 M/mm3 (4.00-5.60); RDW 15.6 % (11.9-15.9); WHITE BLOOD COUNT 12.5 K/mm3 (4.0-10.0)
[2020-07-01 07:41] LABS: BLOOD UREA NITROGEN 67.4 mg/dL (7-18); CALCIUM 7.1 mg/dL (8.5-10.1); CREATININE 5.9 mg/dL (0.55-1.3); PHOSPHOROUS 5.8 mg/dL (2.5-4.9); POTASSIUM 4.5 mmol/L (3.5-5.1)
[2020-07-01] MEDS: ASPIRIN COATED 81 MG TABLET.EC PO SCH (09:54)
[2020-07-01] MEDS: DULoxetine HCL 20 MG CAPSULE.DR PO SCH (09:54)
[2020-07-01] MEDS: APIXABAN 2.5 MG TABLET PO SCH ×2 (09:54→21:21)
[2020-07-01] MEDS: PANTOPRAZOLE 20 MG TABLET PO SCH (09:54)
[2020-07-01] MEDS: amLODIPine BESYLATE 5 MG TABLET (FP) PO SCH (09:54)
[2020-07-01] MEDS: metoPROLOL SUCCINATE 25 MG TAB.SR.24H (FP) PO SCH (09:54)
[2020-07-01] MEDS: GABAPENTIN 100 MG CAPSULE PO SCH ×2 (09:54→21:21)
--- NOTE | 2020-07-01 12:46 | PN ---
Progress Note (short form) - Note Progress Note: RENAL Awake and alert hungry denies specific complaints Last Vital Signs Temp Pulse Resp BP Pulse Ox 98.9 F 86 18 139/69 97 07/01/20 10:00 07/01/20 10:00 07/01/20 10:00 07/01/20 10:00 07/01/20 10:00 lungs clear cvs s1s2 rr abd soft, obese ext no edema, has an avf in right upper ext neuro a+ox3 CBC, BMP 07/01/20 05:57 07/01/20 05:57 Current Medications Generic Name Dose Route Start Last Admin Trade Name Freq PRN Reason Stop Dose Admin Acetaminophen 650 mg 06/29/20 01:02 06/30/20 21:52 Tylenol - PO 650 mg Q4H PRN Administration FEVER Amlodipine Besylate 5 mg 06/28/20 18:00 07/01/20 09:54 Norvasc - PO 5 mg DAILY [facility] Administration Apixaban 2.5 mg 06/28/20 22:00 07/01/20 09:54 Eliquis - PO 2.5 mg BID [facility] Administration Aspirin 81 mg 06/29/20 10:00 07/01/20 09:54 Ecotrin - PO 81 mg DAILY [facility] Administration Duloxetine HCl 40 mg 06/29/20 10:00 07/01/20 09:54 Cymbalta - PO 40 mg DAILY [facility] Administration Gabapentin 100 mg 06/28/20 22:00 07/01/20 09:54 Neurontin - PO 100 mg BID [facility] Administration Piperacillin Sod/Tazobactam 50 mls @ 100 mls/hr 06/28/20 18:00 07/01/20 09:54 Sod 2.25 gm/ Dextrose IVPB 100 mls/hr Q8H-IV [facility] Administration Protocol Insulin Aspart 1 vial 06/29/20 07:00 07/01/20 11:17 Novolog Vial Sliding Scale - SQ Not Given ACHS [facility] Protocol Insulin Detemir 30 units 06/28/20 22:00 06/30/20 21:53 Levemir Vial SQ 30 unit HS [facility] Administration Metoprolol Succinate 25 mg 06/28/20 18:00 07/01/20 09:54 Toprol Xl - PO 25 mg DAILY [facility] Administration Pantoprazole Sodium 20 mg 06/29/20 10:00 07/01/20 09:54 Protonix - PO 20 mg DAILY [facility] Administration Zolpidem Tartrate 5 mg 06/29/20 20:53 06/30/20 21:53 Ambien - PO 5 mg HS PRN Administration INSOMNIA 70 year old male with history of CKD stage 4/5, IDDM, hypertension, hyperlipidemia, BOBY, CHF, Aflutter, PVD who presented from home with a fall and generalized weakness and noted to have left lower extremity cellulitis with leukocytosis/WBC of 20k and Cr of 4.5. 1. Lower extremity cellulitis r/o osteomylitis 2. CKD stage 4/5 3. Anemia 4. Hx of CHF w/o evidence of acute exacerbation 5. Hypertension 6. Hyperlipidemia BUN/Cr trending up no acute indication for hd would dc ambien given all the potential side effects of this medication would start ANNI Ideall he should wait until avf can be transposed before initiating hd start phosphate binder MV
--- NOTE | 2020-07-01 13:30 | CONSULT ---
Consult - text type - Consultation Consultation Note: Podiatry Consultation: 70 year old diabetic male presented to the ED s/p fall. Patient noted increased redness/swelling to the left foot, lateral foot. He presented with no SOB or CP. He has been febrile with temp spikes since admission. Had temp to 101 F yesterday, currently afebrile. Denies chills/vomitting/nausea. States that he has no pain to the left foot secondary to neuropathy PMHx: IDDM, HTN, HLP, AFib on AC Meds: noted ALL: levaquin, morphine, codeine KOREY: L foot: Pedal pulses weakly palpable, Temperature gradient warm-warm, CFT brisk to all digits. There is a fifth metatarsal base diabetic ulcer with fibrotic base, surrounding erythema to the lateral midfoot. On palpation of the ulcer, at the superior margin of the ulcer, there is tracking to the midfoot. There is purulent drainage on palpation and compression. There is no soft tissue crepitus, no streaking ascending cellulitis to the leg, no lymphangitis. No tenderness to palpation. WBC: 12.5 Blood Cx: no growth CT scan: no appreciable collection Imp: 70 year old diabetic male with abscess/cellulitis and diabetic ulcer left foot Informed consent obtained. Bedside decompression performed utilizing #15 blade scalpel, sterile scissor and sterile forceps. Tracking released superiorly to the level of the dorsal midfoot. Approximately 10 CCs of purulent drainage expressed. The site was flushed with sterile saline and sterile dressing was applied. No local anesthetic was needed due to neuropathy. The patient tolerated the procedure well. I recommend left foot xray and left foot MRI to determine presence of further abscess. The patient is currently eating lunch. Discussed with patient that MRI is needed to determine location of infection. He will need decompression in OR on Friday. NPO after midnight on Friday night. Thank you for the courtesy of this consultation, will follow. Arsalan Powell DPM
[2020-07-01] MEDS ORDERED: EPOETIN ALFA-EPBX 10,000 UNIT/ML VIAL SQ ONE (14:00)
--- NOTE | 2020-07-01 16:10 | PN ---
Progress Note, Physician History of Present Illness: Events noted. Lt foot diabetic ulcer noted with purulent drainage now s/p drainage by Podiatry. Lt foot edema. Febrile to 101.2F last night, currently afebrile. - Current Medication List Current Medications: Active Medications Acetaminophen (Tylenol -) 650 mg PO Q4H PRN PRN Reason: FEVER Last Admin: 06/30/20 21:52 Dose: 650 mg Documented by: Amlodipine Besylate (Norvasc -) 5 mg PO DAILY [facility] Last Admin: 07/01/20 09:54 Dose: 5 mg Documented by: Apixaban (Eliquis -) 2.5 mg PO BID [facility] Last Admin: 07/01/20 09:54 Dose: 2.5 mg Documented by: Aspirin (Ecotrin -) 81 mg PO DAILY [facility] Last Admin: 07/01/20 09:54 Dose: 81 mg Documented by: Duloxetine HCl (Cymbalta -) 40 mg PO DAILY [facility] Last Admin: 07/01/20 09:54 Dose: 40 mg Documented by: Gabapentin (Neurontin -) 100 mg PO BID [facility] Last Admin: 07/01/20 09:54 Dose: 100 mg Documented by: Piperacillin Sod/Tazobactam (Sod 2.25 gm/ Dextrose) 50 mls @ 100 mls/hr IVPB Q8H-IV [facility]; Protocol Last Admin: 07/01/20 09:54 Dose: 100 mls/hr Documented by: Insulin Aspart (Novolog Vial Sliding Scale -) 1 vial SQ ACHS [facility]; Protocol Last Admin: 07/01/20 11:17 Dose: Not Given Documented by: Insulin Detemir (Levemir Vial) 30 units SQ HS [facility] Last Admin: 06/30/20 21:53 Dose: 30 unit Documented by: Metoprolol Succinate (Toprol Xl -) 25 mg PO DAILY [facility] Last Admin: 07/01/20 09:54 Dose: 25 mg Documented by: Pantoprazole Sodium (Protonix -) 20 mg PO DAILY [facility] Last Admin: 07/01/20 09:54 Dose: 20 mg Documented by: Sevelamer Carbonate (Renvela -) 800 mg PO TIDCM [facility] Zolpidem Tartrate (Ambien -) 5 mg PO HS PRN PRN Reason: INSOMNIA Last Admin: 06/30/20 21:53 Dose: 5 mg Documented by: - Objective Vital Signs: Vital Signs Temperature 99.2 F 07/01/20 14:35 Pulse Rate 83 07/01/20 14:35 Respiratory Rate 18 07/01/20 14:35 Blood Pressure 149/62 07/01/20 14:35 O2 Sat by Pulse Oximetry (%) 95 07/01/20 14:35 Constitutional: Yes: No Distress Eyes: Yes: Conjunctiva Clear Cardiovascular: Yes: Regular Rate and Rhythm Respiratory: Yes: Regular Gastrointestinal: Yes: Normal Bowel Sounds, Soft, Abdomen, Obese Edema: RLE: 2+ Integumentary: Yes: Other (LLE edema/erythema/warm, no tenderness, foot ulcer) Labs: CBC, BMP 07/01/20 05:57 07/01/20 05:57 Laboratory Last Values WBC 12.5 K/mm3 (4.0-10.0) H 07/01/20 05:57 RBC 2.96 M/mm3 (4.00-5.60) L 07/01/20 05:57 Hgb 7.7 GM/dL (11.7-16.9) L 07/01/20 05:57 Hct 24.6 % (35.4-49) L 07/01/20 05:57 MCV 83.2 fl (80-96) 07/01/20 05:57 MCH 25.9 pg (25.7-33.7) 07/01/20 05:57 MCHC 31.2 g/dl (32.0-35.9) L 07/01/20 05:57 RDW 15.6 % (11.9-15.9) 07/01/20 05:57 Plt Count 279 K/MM3 (134-434) 07/01/20 05:57 MPV 9.4 fl (7.5-11.1) 07/01/20 05:57 Absolute Neuts (auto) 12.5 K/mm3 (1.5-8.0) H 06/30/20 06:38 Total Counted 100 06/28/20 02:50 Neutrophils % 83.1 % (42.8-82.8) H 06/30/20 06:38 Neutrophils % (Manual) 81.0 % (42.8-82.8) 06/28/20 02:50 Band Neutrophils % 5.0 % (0-10) 06/28/20 02:50 Lymphocytes % 7.0 % (8-40) L D 06/30/20 06:38 Lymphocytes % (Manual) 6.0 % (8-40) L D 06/28/20 02:50 Monocytes % 8.1 % (3.8-10.2) 06/30/20 06:38 Monocytes % (Manual) 8 % (3.8-10.2) D 06/28/20 02:50 Eosinophils % 1.5 % (0-4.5) D 06/30/20 06:38 Basophils % 0.3 % (0-2.0) 06/30/20 06:38 Nucleated RBC % 0 % (0-0) 06/30/20 06:38 Smudge Cells Few 06/28/20 02:50 Hypochromia 1+ 06/28/20 02:50 Platelet Estimate Adequate 06/28/20 02:50 Platelet Comment No clotting detected 06/28/20 02:50 Fragmented RBCs Few 06/28/20 02:50 VBG pH 7.342 (7.310-7.410) 06/28/20 03:40 POC VBG pCO2 38.0 mmHg (38-52) 06/28/20 03:40 POC VBG pO2 24.1 mmHg (28-48) L 06/28/20 03:40 VBG HCO3 20.1 mmol/L (23-29) L 06/28/20 03:40 VBG O2 Sat (Jossy) 40.0 % (70-80) L 06/28/20 03:40 VBG Base Excess -5.1 mmol/L (-2-2) L 06/28/20 03:40 Sodium 137 mmol/L (136-145) 07/01/20 05:57 Potassium 4.5 mmol/L (3.5-5.1) 07/01/20 05:57 Chloride 107 mmol/L (98-107) 07/01/20 05:57 Carbon Dioxide 20 mmol/L (21-32) L 07/01/20 05:57 Anion Gap 11 MMOL/L (8-16) 07/01/20 05:57 BUN 67.4 mg/dL (7-18) H 07/01/20 05:57 Creatinine 5.9 mg/dL (0.55-1.3) H 07/01/20 05:57 Est GFR (CKD-EPI)AfAm 10.22 07/01/20 05:57 Est GFR (CKD-EPI)NonAf 8.82 07/01/20 05:57 POC Glucometer 145 UNITS (80-120) 07/01/20 11:16 Random Glucose 149 mg/dL (74-106) H 07/01/20 05:57 Lactic Acid 1.6 mmol/L (0.4-2.0) 06/28/20 03:40 Calcium 7.1 mg/dL (8.5-10.1) L 07/01/20 05:57 Phosphorus 5.8 mg/dL (2.5-4.9) H 07/01/20 05:57 Magnesium 2.0 mg/dL (1.8-2.4) 07/01/20 05:57 Total Bilirubin 0.4 mg/dL (0.2-1) 06/30/20 06:38 AST 20 U/L (15-37) 06/30/20 06:38 ALT 16 U/L (13-61) 06/30/20 06:38 Alkaline Phosphatase 88 U/L (45-117) 06/30/20 06:38 Creatine Kinase 343 U/L (26-308) H 06/28/20 02:50 Creatine Kinase Index 1.0 % (0.0-5.0) 06/28/20 02:50 CK-MB (CK-2) 3.6 ng/mL (0.5-3.6) 06/28/20 02:50 Troponin I 0.24 ng/ml (0.00-0.05) H 06/28/20 02:50 Total Protein 5.5 g/dl (6.4-8.2) L 06/30/20 06:38 Albumin 1.5 g/dl (3.4-5.0) L 06/30/20 06:38 Urine Color Yellow 06/28/20 04:50 Urine Appearance Cloudy 06/28/20 04:50 Urine pH 5.0 (5.0-8.0) 06/28/20 04:50 Ur Specific [place] 1.021 (1.010-1.035) 06/28/20 04:50 Urine Protein 4+ (NEGATIVE) H 06/28/20 04:50 Urine Glucose (UA) 2+ (NEGATIVE) H 06/28/20 04:50 Urine Ketones Negative (NEGATIVE) 06/28/20 04:50 Urine Blood 2+ (NEGATIVE) H 06/28/20 04:50 Urine Nitrite Negative (NEGATIVE) 06/28/20 04:50 Urine Bilirubin Negative (NEGATIVE) 06/28/20 04:50 Urine Urobilinogen 0.2 mg/dL (0.2-1.0) 06/28/20 04:50 Ur Leukocyte Esterase Negative (NEGATIVE) 06/28/20 04:50 Urine WBC (Auto) 52 /uL (0-25.8) 06/28/20 04:50 Urine RBC (Auto) 9 /uL (0-23.9) 06/28/20 04:50 Urine Casts (Auto) 44 /uL (0-3.1) 06/28/20 04:50 U Pathogenic Cast Auto No Result Required. 06/28/20 04:50 U Epithel Cells (Auto) >36 /uL (0-25.1) 06/28/20 04:50 U Sm Round Cell (Auto) 3 06/28/20 04:50 Urine Bacteria (Auto) 22 /uL (0-1359) 06/28/20 04:50 Random Vancomycin 14.1 ug/ml (5-26) 07/01/20 05:57 COVID-19 (PRISCILLA) Not detected (Not Detected) 06/28/20 04:00 Microbiology 06/28/20 03:40 Blood - Peripheral Venous Blood Culture - Preliminary NO GROWTH OBTAINED AFTER 72 HOURS, INCUBATION TO CONTINUE FOR 2 DAYS. 06/28/20 03:40 Blood - Peripheral Venous Blood Culture - Preliminary NO GROWTH OBTAINED AFTER 72 HOURS, INCUBATION TO CONTINUE FOR 2 DAYS. 06/28/20 04:50 Urine - Urine Clean Catch Urine Culture - Final NO GROWTH OBTAINED - ....Imaging Cat Scan: Report Reviewed Problem List - Problems (1) Cellulitis Code(s): L03.90 - CELLULITIS, UNSPECIFIED (2) Diabetes Code(s): E11.9 - TYPE 2 DIABETES MELLITUS WITHOUT COMPLICATIONS (3) CHF (congestive heart failure) Code(s): I50.9 - HEART FAILURE, UNSPECIFIED (4) Diabetic neuropathy Code(s): E11.40 - TYPE 2 DIABETES MELLITUS WITH DIABETIC NEUROPATHY, UNSP (5) ESRF (end stage renal failure) Code(s): N18.6 - END STAGE RENAL DISEASE (6) Hx of CABG Code(s): Z95.1 - PRESENCE OF AORTOCORONARY BYPASS GRAFT (7) PAD (peripheral artery disease) Code(s): I73.9 - PERIPHERAL VASCULAR DISEASE, UNSPECIFIED (8) CAD (coronary artery disease) Code(s): I25.10 - ATHSCL HEART DISEASE OF [place] CORONARY ARTERY W/O ANG PCTRS Qualifiers: Coronary Disease-Associated Artery/Lesion type: [place] artery [place] vs. transplanted heart: [place] heart Associated angina: without angina Qualified Code(s): I25.10 - Atherosclerotic heart disease of [place] coronary artery without angina pectoris (9) Hyperlipidemia Code(s): E78.5 - HYPERLIPIDEMIA, UNSPECIFIED Qualifiers: Hyperlipidemia type: pure hypercholesterolemia Qualified Code(s): E78.00 - Pure hypercholesterolemia, unspecified; E78.0 - Pure hypercholesterolemia (10) Hypertension Code(s): I10 - ESSENTIAL (PRIMARY) HYPERTENSION Qualifiers: Hypertension type: essential hypertension Qualified Code(s): I10 - Essential (primary) hypertension (11) PVD (peripheral vascular disease) Code(s): I73.9 - PERIPHERAL VASCULAR DISEASE, UNSPECIFIED Assessment/Plan LLE cellulitis/foot abscess Diabetic foot ulcer Fever Leukocytosis Neuropathy PVD CAD s/p CABG CKD -- abscess from foot ulcer site drained, for further surgery -- wbc trending down, mild temp elevation today -- continue antibiotics -- wound cultures -- MRI foot pending -- CT results noted -- continue monitor temps/wbc trend -- wound care
[2020-07-01] MEDS: SEVELAMER CARBONATE 800 MG TAB (FP) PO SCH (17:11)
--- NOTE | 2020-07-01 20:34 | PN ---
Progress Note, Physician - Current Medication List Current Medications: Active Medications Acetaminophen (Tylenol -) 650 mg PO Q4H PRN PRN Reason: FEVER Last Admin: 06/30/20 21:52 Dose: 650 mg Documented by: Amlodipine Besylate (Norvasc -) 5 mg PO DAILY [facility] Last Admin: 07/01/20 09:54 Dose: 5 mg Documented by: Apixaban (Eliquis -) 2.5 mg PO BID [facility] Last Admin: 07/01/20 09:54 Dose: 2.5 mg Documented by: Aspirin (Ecotrin -) 81 mg PO DAILY [facility] Last Admin: 07/01/20 09:54 Dose: 81 mg Documented by: Duloxetine HCl (Cymbalta -) 40 mg PO DAILY [facility] Last Admin: 07/01/20 09:54 Dose: 40 mg Documented by: Gabapentin (Neurontin -) 100 mg PO BID [facility] Last Admin: 07/01/20 09:54 Dose: 100 mg Documented by: Piperacillin Sod/Tazobactam (Sod 2.25 gm/ Dextrose) 50 mls @ 100 mls/hr IVPB Q8H-IV [facility]; Protocol Last Admin: 07/01/20 17:11 Dose: 100 mls/hr Documented by: Insulin Aspart (Novolog Vial Sliding Scale -) 1 vial SQ ACHS [facility]; Protocol Last Admin: 07/01/20 17:11 Dose: 2 units Documented by: Insulin Detemir (Levemir Vial) 30 units SQ HS [facility] Last Admin: 06/30/20 21:53 Dose: 30 unit Documented by: Metoprolol Succinate (Toprol Xl -) 25 mg PO DAILY [facility] Last Admin: 07/01/20 09:54 Dose: 25 mg Documented by: Pantoprazole Sodium (Protonix -) 20 mg PO DAILY [facility] Last Admin: 07/01/20 09:54 Dose: 20 mg Documented by: Sevelamer Carbonate (Renvela -) 800 mg PO TIDCM [facility] Last Admin: 07/01/20 17:11 Dose: 800 mg Documented by: Zolpidem Tartrate (Ambien -) 5 mg PO HS PRN PRN Reason: INSOMNIA Last Admin: 06/30/20 21:53 Dose: 5 mg Documented by: - Objective Vital Signs: Vital Signs Temperature 99.2 F 07/01/20 14:35 Pulse Rate 83 07/01/20 14:35 Respiratory Rate 18 07/01/20 14:35 Blood Pressure 149/62 07/01/20 14:35 O2 Sat by Pulse Oximetry (%) 95 07/01/20 14:35 Labs: CBC, BMP 07/01/20 05:57 07/01/20 05:57 Problem List - Problems (1) Cellulitis Code(s): L03.90 - CELLULITIS, UNSPECIFIED (2) ESRF (end stage renal failure) Code(s): N18.6 - END STAGE RENAL DISEASE (3) Hypertension Code(s): I10 - ESSENTIAL (PRIMARY) HYPERTENSION Qualifiers: Hypertension type: essential hypertension Qualified Code(s): I10 - Essential (primary) hypertension (4) Diabetes Code(s): E11.9 - TYPE 2 DIABETES MELLITUS WITHOUT COMPLICATIONS (5) CHF (congestive heart failure) Code(s): I50.9 - HEART FAILURE, UNSPECIFIED (6) Diabetic neuropathy Code(s): E11.40 - TYPE 2 DIABETES MELLITUS WITH DIABETIC NEUROPATHY, UNSP (7) Hx of CABG Code(s): Z95.1 - PRESENCE OF AORTOCORONARY BYPASS GRAFT (8) CAD (coronary artery disease) Code(s): I25.10 - ATHSCL HEART DISEASE OF [place] CORONARY ARTERY W/O ANG PCTRS Qualifiers: Coronary Disease-Associated Artery/Lesion type: [place] artery [place] vs. transplanted heart: [place] heart Associated angina: without angina Qualified Code(s): I25.10 - Atherosclerotic heart disease of [place] coronary artery without angina pectoris (9) Hyperlipidemia Code(s): E78.5 - HYPERLIPIDEMIA, UNSPECIFIED Qualifiers: Hyperlipidemia type: pure hypercholesterolemia Qualified Code(s): E78.00 - Pure hypercholesterolemia, unspecified; E78.0 - Pure hypercholesterolemia (10) PVD (peripheral vascular disease) Code(s): I73.9 - PERIPHERAL VASCULAR DISEASE, UNSPECIFIED
[2020-07-01] MEDS ORDERED: INSULIN (NOVOLOG) ASPART 100 UNITS/ML 10ML VIAL ONE (21:06)
[2020-07-01] MEDS: ZOLPIDEM TARTRATE 5 MG TABLET PO PRN (21:21)
[2020-07-01] MEDS: INSULIN (LEVEMIR) 100 UNITS/ML UNITS SQ SCH (21:21)
[2020-07-02] MEDS ORDERED: DEXTROSE 5%-WATER - 50 ML IVPB ONE ×3 (01:31→17:06)
[2020-07-02] MEDS ORDERED: PIPERACILLIN/TAZOBACTAM 2.25 GM VIAL IVPB ONE ×3 (01:31→17:06)
[2020-07-02] MEDS: PIPERACILLIN/TAZOB 2.25 GM 2.25 GM in DEXTROSE 5%-WATER - 50 ML IVPB SCH ×3 (01:34→17:10)
[2020-07-02] MEDS ORDERED: INSULIN (NOVOLOG) ASPART 100 UNITS/ML 10ML VIAL ONE (06:00)
[2020-07-02] MEDS: INSULIN SLIDING SCALE (NOVOLOG) 1 VIAL SQ SCH ×4 (06:12→21:43)
[2020-07-02] MEDS: amLODIPine BESYLATE 5 MG TABLET (FP) PO SCH (09:42)
[2020-07-02] MEDS: SEVELAMER CARBONATE 800 MG TAB (FP) PO SCH ×3 (09:42→16:58)
[2020-07-02] MEDS: ASPIRIN COATED 81 MG TABLET.EC PO SCH (09:42)
[2020-07-02] MEDS: metoPROLOL SUCCINATE 25 MG TAB.SR.24H (FP) PO SCH (09:42)
[2020-07-02] MEDS: APIXABAN 2.5 MG TABLET PO SCH ×2 (09:43→21:44)
[2020-07-02] MEDS: PANTOPRAZOLE 20 MG TABLET PO SCH (09:43)
[2020-07-02] MEDS: GABAPENTIN 100 MG CAPSULE PO SCH ×2 (09:43→21:44)
[2020-07-02] MEDS ORDERED: PT OWN MED DRAWER 7, Y5N ONE (09:53)
[2020-07-02] MEDS: DULoxetine HCL 20 MG CAPSULE.DR PO SCH (09:54)
--- NOTE | 2020-07-02 12:25 | PN ---
Progress Note (short form) - Note Progress Note: Vascular Surgery Pt seen and examined. Dressing changed. Wound cultures done from drainage. MRI is neg for osteo and for any abscess. Would hold off further OR debridement. Lets wait for culture results in case antibiotics need to be changed. Matt Garcia DO
--- NOTE | 2020-07-02 13:27 | PN ---
Progress Note (short form) - Note Progress Note: RENAL Awake and alert denies specific complaints Last Vital Signs Temp Pulse Resp BP Pulse Ox 99 F 70 18 148/65 98 07/02/20 10:09 07/02/20 10:09 07/02/20 10:09 07/02/20 10:09 07/02/20 10:09 lungs clear cvs s1s2 rr abd soft, obese ext no edema, has an avf in right upper ext neuro a+ox3, poor memory CBC, BMP 07/01/20 05:57 07/01/20 05:57 Current Medications Generic Name Dose Route Start Last Admin Trade Name Freq PRN Reason Stop Dose Admin Acetaminophen 650 mg 06/29/20 01:02 06/30/20 21:52 Tylenol - PO 650 mg Q4H PRN Administration FEVER Amlodipine Besylate 5 mg 06/28/20 18:00 07/02/20 09:42 Norvasc - PO 5 mg DAILY [facility] Administration Apixaban 2.5 mg 06/28/20 22:00 07/02/20 09:43 Eliquis - PO 2.5 mg BID [facility] Administration Aspirin 81 mg 06/29/20 10:00 07/02/20 09:42 Ecotrin - PO 81 mg DAILY [facility] Administration Duloxetine HCl 40 mg 06/29/20 10:00 07/02/20 09:54 Cymbalta - PO 40 mg DAILY [facility] Administration Gabapentin 100 mg 06/28/20 22:00 07/02/20 09:43 Neurontin - PO 100 mg BID [facility] Administration Piperacillin Sod/Tazobactam 50 mls @ 100 mls/hr 06/28/20 18:00 07/02/20 09:43 Sod 2.25 gm/ Dextrose IVPB 100 mls/hr Q8H-IV [facility] Administration Protocol Insulin Aspart 1 vial 06/29/20 07:00 07/02/20 12:44 Novolog Vial Sliding Scale - SQ 2 units ACHS [facility] Administration Protocol Insulin Detemir 30 units 06/28/20 22:00 07/01/20 21:21 Levemir Vial SQ 30 unit HS [facility] Administration Metoprolol Succinate 25 mg 06/28/20 18:00 07/02/20 09:42 Toprol Xl - PO 25 mg DAILY [facility] Administration Pantoprazole Sodium 20 mg 06/29/20 10:00 07/02/20 09:43 Protonix - PO 20 mg DAILY [facility] Administration Sevelamer Carbonate 800 mg 07/01/20 17:30 07/02/20 12:50 Renvela - PO 800 mg TIDCM [facility] Administration Zolpidem Tartrate 5 mg 06/29/20 20:53 07/01/20 21:21 Ambien - PO 5 mg HS PRN Administration INSOMNIA 70 year old male with history of CKD stage 4/5, IDDM, hypertension, hyperlipidemia, BOBY, CHF, Aflutter, PVD who presented from home with a fall and generalized weakness and noted to have left lower extremity cellulitis with leukocytosis/WBC of 20k and Cr of 4.5. 1. Lower extremity cellulitis r/o osteomylitis 2. CKD stage 4/5 3. Anemia 4. Hx of CHF w/o evidence of acute exacerbation 5. Hypertension 6. Hyperlipidemia BUN/Cr trending up no acute indication for hd would dc ambien given all the potential side effects of this medication procrit started Ideally he should wait until avf can be transposed before initiating hd sevealmer as ordered repeat labs vascular surgery note read and appreciated ZORA
[2020-07-02] MEDS: guaiFENesin 200 MG/10 ML 10 ML UNIT-DOSE CUPS PO PRN (16:57)
[2020-07-02] MEDS: ALBUTEROL SO4 2.5/IPRATROPIUM 0.5 INH SOL 3 ML VIAL.NEB. NEB PRN ×2 (17:33→21:50)
--- NOTE | 2020-07-02 20:22 | PN ---
Progress Note, Physician History of Present Illness: Pt states he feels well. LLE still with warmth/erythema, chronic edema. Temp 99.3F. No specific complaints. MRI results/Vascular note reviewed. - Current Medication List Current Medications: Active Medications Acetaminophen (Tylenol -) 650 mg PO Q4H PRN PRN Reason: FEVER Last Admin: 06/30/20 21:52 Dose: 650 mg Documented by: Albuterol/Ipratropium (Duoneb -) 1 amp NEB Q6H PRN PRN Reason: WHEEZING Last Admin: 07/02/20 17:33 Dose: 1 amp Documented by: Amlodipine Besylate (Norvasc -) 5 mg PO DAILY [facility] Last Admin: 07/02/20 09:42 Dose: 5 mg Documented by: Apixaban (Eliquis -) 2.5 mg PO BID [facility] Last Admin: 07/02/20 09:43 Dose: 2.5 mg Documented by: Aspirin (Ecotrin -) 81 mg PO DAILY [facility] Last Admin: 07/02/20 09:42 Dose: 81 mg Documented by: Duloxetine HCl (Cymbalta -) 40 mg PO DAILY [facility] Last Admin: 07/02/20 09:54 Dose: 40 mg Documented by: Gabapentin (Neurontin -) 100 mg PO BID [facility] Last Admin: 07/02/20 09:43 Dose: 100 mg Documented by: Guaifenesin (Robitussin -) 5 ml PO Q8H PRN PRN Reason: COUGH Last Admin: 07/02/20 16:57 Dose: 5 ml Documented by: Piperacillin Sod/Tazobactam (Sod 2.25 gm/ Dextrose) 50 mls @ 100 mls/hr IVPB Q8H-IV [facility]; Protocol Last Admin: 07/02/20 17:10 Dose: 100 mls/hr Documented by: Insulin Aspart (Novolog Vial Sliding Scale -) 1 vial SQ ACHS [facility]; Protocol Last Admin: 07/02/20 17:15 Dose: 2 units Documented by: Insulin Detemir (Levemir Vial) 30 units SQ HS [facility] Last Admin: 07/01/20 21:21 Dose: 30 unit Documented by: Metoprolol Succinate (Toprol Xl -) 25 mg PO DAILY [facility] Last Admin: 07/02/20 09:42 Dose: 25 mg Documented by: Pantoprazole Sodium (Protonix -) 20 mg PO DAILY [facility] Last Admin: 07/02/20 09:43 Dose: 20 mg Documented by: Sevelamer Carbonate (Renvela -) 800 mg PO TIDCM [facility] Last Admin: 07/02/20 16:58 Dose: 800 mg Documented by: Zolpidem Tartrate (Ambien -) 5 mg PO HS PRN PRN Reason: INSOMNIA Last Admin: 07/01/20 21:21 Dose: 5 mg Documented by: - Objective Vital Signs: Vital Signs Temperature 99.3 F 07/02/20 13:43 Pulse Rate 76 07/02/20 13:43 Respiratory Rate 18 07/02/20 13:43 Blood Pressure 154/65 07/02/20 13:43 O2 Sat by Pulse Oximetry (%) 96 07/02/20 13:43 Constitutional: Yes: No Distress, Calm Cardiovascular: Yes: Regular Rate and Rhythm Respiratory: Yes: Regular Gastrointestinal: Yes: Normal Bowel Sounds, Soft, Abdomen, Obese Extremities: Yes: Erythema (LLE edema/erythema/warmth) Wound/Incision: Yes: Dressing Dry and Intact Neurological: Yes: Alert, Oriented Labs: CBC, BMP 07/01/20 05:57 07/01/20 05:57 Microbiology 07/02/20 12:20 Foot - Left Lateral Gram Stain - Final 06/28/20 03:40 Blood - Peripheral Venous Blood Culture - Preliminary NO GROWTH OBTAINED AFTER 96 HOURS, INCUBATION TO CONTINUE FOR 1 DAYS. 06/28/20 03:40 Blood - Peripheral Venous Blood Culture - Preliminary NO GROWTH OBTAINED AFTER 96 HOURS, INCUBATION TO CONTINUE FOR 1 DAYS. 06/28/20 04:50 Urine - Urine Clean Catch Urine Culture - Final NO GROWTH OBTAINED - ....Imaging MRI: Report Reviewed Problem List - Problems (1) Cellulitis Code(s): L03.90 - CELLULITIS, UNSPECIFIED (2) Diabetes Code(s): E11.9 - TYPE 2 DIABETES MELLITUS WITHOUT COMPLICATIONS (3) CHF (congestive heart failure) Code(s): I50.9 - HEART FAILURE, UNSPECIFIED (4) Diabetic neuropathy Code(s): E11.40 - TYPE 2 DIABETES MELLITUS WITH DIABETIC NEUROPATHY, UNSP (5) ESRF (end stage renal failure) Code(s): N18.6 - END STAGE RENAL DISEASE (6) Hx of CABG Code(s): Z95.1 - PRESENCE OF AORTOCORONARY BYPASS GRAFT (7) PAD (peripheral artery disease) Code(s): I73.9 - PERIPHERAL VASCULAR DISEASE, UNSPECIFIED (8) CAD (coronary artery disease) Code(s): I25.10 - ATHSCL HEART DISEASE OF [place] CORONARY ARTERY W/O ANG PCTRS Qualifiers: Coronary Disease-Associated Artery/Lesion type: [place] artery [place] vs. transplanted heart: [place] heart Associated angina: without angina Qualified Code(s): I25.10 - Atherosclerotic heart disease of [place] coronary artery without angina pectoris (9) Hyperlipidemia Code(s): E78.5 - HYPERLIPIDEMIA, UNSPECIFIED Qualifiers: Hyperlipidemia type: pure hypercholesterolemia Qualified Code(s): E78.00 - Pure hypercholesterolemia, unspecified; E78.0 - Pure hypercholesterolemia (10) Hypertension Code(s): I10 - ESSENTIAL (PRIMARY) HYPERTENSION Qualifiers: Hypertension type: essential hypertension Qualified Code(s): I10 - Essential (primary) hypertension (11) PVD (peripheral vascular disease) Code(s): I73.9 - PERIPHERAL VASCULAR DISEASE, UNSPECIFIED Assessment/Plan LLE cellulitis/foot abscess - s/p drainage Diabetic foot ulcer Fever Leukocytosis Neuropathy PVD CAD s/p CABG CKD -- abscess from foot ulcer site drained, wound culture pending -- wbc trended down, low grade fever - continue monitor -- continue current antibiotics for now -- MRI foot without evidence of obvious abscess/OM -- Vascular evaluated -- continue wound care
[2020-07-02] MEDS: INSULIN (LEVEMIR) 100 UNITS/ML UNITS SQ SCH (21:42)
--- NOTE | 2020-07-02 22:20 | PN ---
Progress Note, Physician - Current Medication List Current Medications: Active Medications Acetaminophen (Tylenol -) 650 mg PO Q4H PRN PRN Reason: FEVER Last Admin: 06/30/20 21:52 Dose: 650 mg Documented by: Albuterol/Ipratropium (Duoneb -) 1 amp NEB Q6H PRN PRN Reason: WHEEZING Last Admin: 07/02/20 17:33 Dose: 1 amp Documented by: Amlodipine Besylate (Norvasc -) 5 mg PO DAILY [facility] Last Admin: 07/02/20 09:42 Dose: 5 mg Documented by: Apixaban (Eliquis -) 2.5 mg PO BID [facility] Last Admin: 07/02/20 21:44 Dose: 2.5 mg Documented by: Aspirin (Ecotrin -) 81 mg PO DAILY [facility] Last Admin: 07/02/20 09:42 Dose: 81 mg Documented by: Duloxetine HCl (Cymbalta -) 40 mg PO DAILY [facility] Last Admin: 07/02/20 09:54 Dose: 40 mg Documented by: Gabapentin (Neurontin -) 100 mg PO BID [facility] Last Admin: 07/02/20 21:44 Dose: 100 mg Documented by: Guaifenesin (Robitussin -) 5 ml PO Q8H PRN PRN Reason: COUGH Last Admin: 07/02/20 16:57 Dose: 5 ml Documented by: Piperacillin Sod/Tazobactam (Sod 2.25 gm/ Dextrose) 50 mls @ 100 mls/hr IVPB Q8H-IV [facility]; Protocol Last Admin: 07/02/20 17:10 Dose: 100 mls/hr Documented by: Insulin Aspart (Novolog Vial Sliding Scale -) 1 vial SQ ACHS [facility]; Protocol Last Admin: 07/02/20 21:43 Dose: 4 units Documented by: Insulin Detemir (Levemir Vial) 30 units SQ HS [facility] Last Admin: 07/02/20 21:42 Dose: 30 unit Documented by: Metoprolol Succinate (Toprol Xl -) 25 mg PO DAILY [facility] Last Admin: 07/02/20 09:42 Dose: 25 mg Documented by: Pantoprazole Sodium (Protonix -) 20 mg PO DAILY [facility] Last Admin: 07/02/20 09:43 Dose: 20 mg Documented by: Sevelamer Carbonate (Renvela -) 800 mg PO TIDCM [facility] Last Admin: 07/02/20 16:58 Dose: 800 mg Documented by: - Objective Vital Signs: Vital Signs Temperature 98.6 F 07/02/20 20:55 Pulse Rate 70 07/02/20 20:55 Respiratory Rate 18 07/02/20 20:55 Blood Pressure 135/59 L 07/02/20 20:55 O2 Sat by Pulse Oximetry (%) 98 07/02/20 20:55 Neck: Yes: WNL, Supple Cardiovascular: Yes: WNL, Regular Rate and Rhythm Respiratory: Yes: Wheezes Gastrointestinal: Yes: WNL, Normal Bowel Sounds, Soft Extremities: Yes: Other (RUE AV fistula w/ thrill LLE Lt foot w/ erythema/warmth) Edema: Yes Edema: LLE: Trace, RLE: Trace Labs: CBC, BMP 07/01/20 05:57 07/01/20 05:57 Problem List - Problems (1) Cellulitis Assessment/Plan: Cont IV antibxs S/P drainage lt foot ulcer Awaiting cultures MRI lt foot was negative for osteo/abscess Cont wound care Code(s): L03.90 - CELLULITIS, UNSPECIFIED (2) Cough Assessment/Plan: Cont duoneb CAR showed ?LLL atelectasis vs infiltrate Check ct scan chest Code(s): R05 - COUGH (3) ESRF (end stage renal failure) Assessment/Plan: Monitor BUN/creatinine As per renal Code(s): N18.6 - END STAGE RENAL DISEASE (4) Hypertension Assessment/Plan: Cont norvasc/metoprolol Code(s): I10 - ESSENTIAL (PRIMARY) HYPERTENSION Qualifiers: Hypertension type: essential hypertension Qualified Code(s): I10 - Essen tial (primary) hypertension (5) Diabetes Assessment/Plan: Cont levemir Cont sliding scale w/ coverage Code(s): E11.9 - TYPE 2 DIABETES MELLITUS WITHOUT COMPLICATIONS (6) CHF (congestive heart failure) Assessment/Plan: Cont lasix for now Code(s): I50.9 - HEART FAILURE, UNSPECIFIED (7) Diabetic neuropathy Code(s): E11.40 - TYPE 2 DIABETES MELLITUS WITH DIABETIC NEUROPATHY, UNSP (8) Hx of CABG Code(s): Z95.1 - PRESENCE OF AORTOCORONARY BYPASS GRAFT (9) CAD (coronary artery disease) Code(s): I25.10 - ATHSCL HEART DISEASE OF [place] CORONARY ARTERY W/O ANG PCTRS Qualifiers: Coronary Disease-Associated Artery/Lesion type: [place] artery [place] vs. transplanted heart: [place] heart Associated angina: without angina Qualified Code(s): I25.10 - Atherosclerotic heart disease of [place] coronary artery without angina pectoris (10) Hyperlipidemia Code(s): E78.5 - HYPERLIPIDEMIA, UNSPECIFIED Qualifiers: Hyperlipidemia type: pure hypercholesterolemia Qualified Code(s): E78.00 - Pure hypercholesterolemia, unspecified; E78.0 - Pure hypercholesterolemia (11) PVD (peripheral vascular disease) Code(s): I73.9 - PERIPHERAL VASCULAR DISEASE, UNSPECIFIED
[2020-07-02] MEDS: ZOLPIDEM TARTRATE 5 MG TABLET PO PRN (23:15)
[2020-07-03] MEDS ORDERED: PIPERACILLIN/TAZOBACTAM 2.25 GM VIAL IVPB ONE ×3 (02:04→16:54)
[2020-07-03] MEDS ORDERED: DEXTROSE 5%-WATER - 50 ML IVPB ONE ×3 (02:05→16:54)
[2020-07-03] MEDS: PIPERACILLIN/TAZOB 2.25 GM 2.25 GM in DEXTROSE 5%-WATER - 50 ML IVPB SCH ×3 (02:15→17:04)
[2020-07-03] MEDS: INSULIN SLIDING SCALE (NOVOLOG) 1 VIAL SQ SCH ×4 (06:04→21:40)
--- NOTE | 2020-07-03 07:21 | PN ---
Progress Note (short form) - Note Progress Note: Pod f/u: 70 year old diabetic male presented to the ED s/p fall. Patient noted increased redness/swelling to the left foot, lateral foot. He presented with no SOB or CP. Doing well today. States that since partner drained abscess feeling much better. States right knee pain today. Denies any left foot pain. States that his sugars run regularly in the 300's at home. PMHx: IDDM, HTN, HLP, AFib on AC Meds: noted ALL: levaquin, morphine, codeine KOREY: L foot: Pedal pulses weakly palpable, Temperature gradient warm-warm, CFT brisk to all digits. There is a fifth metatarsal base diabetic ulcer with fibrotic base, packing pulled, minimal amount of purulent drainage noted, minimal surrounding erythema; no streaking; no crepitus noted, no POP noted MRI: negative osteo; negative abscess Imp: 70 year old diabetic male with abscess/cellulitis and diabetic ulcer left foot s/p bedside drainage Evaluated and reviewed discussed findings with patient; wbc trending down and is afebrile will await cultures improving discussed patient has to have tighter glycemic control or he will have future complications which could include loss of limb if not cared for for now hopeful to avoid intervention in the OR flushed at bedside and redressed with betadine dsd will follow
[2020-07-03 08:06] LABS: BASO % 0.5 % (0-2.0); EOS % 2.4 % (0-4.5); HEMATOCRIT 23.4 % (35.4-49); HEMOGLOBIN 7.4 GM/dL (11.7-16.9); LYMPH % 9.2 % (8-40); MCH 25.9 pg (25.7-33.7); MCHC 31.7 g/dl (32.0-35.9); MEAN CELL VOLUME 81.9 fl (80-96); MEAN PLT VOLUME 8.9 fl (7.5-11.1); MONO % 7.6 % (3.8-10.2); NEUT % 80.3 % (42.8-82.8); PLATELET COUNT 341 K/MM3 (134-434); RBC 2.85 M/mm3 (4.00-5.60); RDW 15.3 % (11.9-15.9); WHITE BLOOD COUNT 11.6 K/mm3 (4.0-10.0)
[2020-07-03 08:35] LABS: ALBUMIN 1.4 g/dl (3.4-5.0); BILIRUBIN,TOTAL 0.4 mg/dL (0.2-1); BLOOD UREA NITROGEN 75.4 mg/dL (7-18); CALCIUM 7.4 mg/dL (8.5-10.1); CREATININE 6.1 mg/dL (0.55-1.3); POTASSIUM 4.4 mmol/L (3.5-5.1); TOT PROT 5.9 g/dl (6.4-8.2)
[2020-07-03] MEDS: APIXABAN 2.5 MG TABLET PO SCH ×2 (10:08→21:43)
[2020-07-03] MEDS: DULoxetine HCL 20 MG CAPSULE.DR PO SCH (10:08)
[2020-07-03] MEDS: GABAPENTIN 100 MG CAPSULE PO SCH ×2 (10:08→21:43)
[2020-07-03] MEDS: metoPROLOL SUCCINATE 25 MG TAB.SR.24H (FP) PO SCH (10:09)
[2020-07-03] MEDS: ASPIRIN COATED 81 MG TABLET.EC PO SCH (10:09)
[2020-07-03] MEDS: amLODIPine BESYLATE 5 MG TABLET (FP) PO SCH (10:09)
[2020-07-03] MEDS: PANTOPRAZOLE 20 MG TABLET PO SCH (10:09)
[2020-07-03] MEDS: SEVELAMER CARBONATE 800 MG TAB (FP) PO SCH ×3 (10:09→17:03)
--- NOTE | 2020-07-03 10:17 | PN ---
Progress Note, Physician History of Present Illness: feels better today cellulitis improving has been afebrile post draiange of the abscess - Current Medication List Current Medications: Active Medications Acetaminophen (Tylenol -) 650 mg PO Q4H PRN PRN Reason: FEVER Last Admin: 06/30/20 21:52 Dose: 650 mg Documented by: Albuterol/Ipratropium (Duoneb -) 1 amp NEB Q6H PRN PRN Reason: WHEEZING Last Admin: 07/02/20 21:50 Dose: 1 amp Documented by: Amlodipine Besylate (Norvasc -) 5 mg PO DAILY [facility] Last Admin: 07/03/20 10:09 Dose: 5 mg Documented by: Apixaban (Eliquis -) 2.5 mg PO BID [facility] Last Admin: 07/03/20 10:08 Dose: 2.5 mg Documented by: Aspirin (Ecotrin -) 81 mg PO DAILY [facility] Last Admin: 07/03/20 10:09 Dose: 81 mg Documented by: Duloxetine HCl (Cymbalta -) 40 mg PO DAILY [facility] Last Admin: 07/03/20 10:08 Dose: 40 mg Documented by: Gabapentin (Neurontin -) 100 mg PO BID [facility] Last Admin: 07/03/20 10:08 Dose: 100 mg Documented by: Guaifenesin (Robitussin -) 5 ml PO Q8H PRN PRN Reason: COUGH Last Admin: 07/02/20 16:57 Dose: 5 ml Documented by: Piperacillin Sod/Tazobactam (Sod 2.25 gm/ Dextrose) 50 mls @ 100 mls/hr IVPB Q8H-IV [facility]; Protocol Last Admin: 07/03/20 10:08 Dose: 100 mls/hr Documented by: Insulin Aspart (Novolog Vial Sliding Scale -) 1 vial SQ [facility]; Protocol Last Admin: 07/03/20 06:04 Dose: Not Given Documented by: Insulin Detemir (Levemir Vial) 30 units SQ HS [facility] Last Admin: 07/02/20 21:42 Dose: 30 unit Documented by: Metoprolol Succinate (Toprol Xl -) 25 mg PO DAILY [facility] Last Admin: 07/03/20 10:09 Dose: 25 mg Documented by: Pantoprazole Sodium (Protonix -) 20 mg PO DAILY [facility] Last Admin: 07/03/20 10:09 Dose: 20 mg Documented by: Sevelamer Carbonate (Renvela -) 800 mg PO TIDCM [facility] Last Admin: 07/03/20 10:09 Dose: 800 mg Documented by: Zolpidem Tartrate (Ambien -) 5 mg PO HS PRN PRN Reason: INSOMNIA Last Admin: 07/02/20 23:15 Dose: 5 mg Documented by: - Objective Vital Signs: Vital Signs Temperature 98.8 F 07/03/20 05:00 Pulse Rate 69 07/03/20 05:00 Respiratory Rate 18 07/03/20 05:00 Blood Pressure 141/64 07/03/20 05:00 O2 Sat by Pulse Oximetry (%) 91 L 07/03/20 05:00 Constitutional: Yes: No Distress, Calm Cardiovascular: Yes: S1, S2 Respiratory: Yes: Regular, CTA Bilaterally Gastrointestinal: Yes: Normal Bowel Sounds, Soft Musculoskeletal: Yes: WNL, Other Extremities: Yes: Erythema (improing) Integumentary: Yes: Erythema (improving) Neurological: Yes: Alert, Oriented Psychiatric: Yes: Alert, Oriented Labs: CBC, BMP 07/03/20 07:20 07/03/20 07:20 Assessment/Plan Problem List - Problems (1) Cellulitis Code(s): L03.90 - CELLULITIS, UNSPECIFIED (2) Diabetes Code(s): E11.9 - TYPE 2 DIABETES MELLITUS WITHOUT COMPLICATIONS (3) CHF (congestive heart failure) Code(s): I50.9 - HEART FAILURE, UNSPECIFIED (4) Diabetic neuropathy Code(s): E11.40 - TYPE 2 DIABETES MELLITUS WITH DIABETIC NEUROPATHY, UNSP (5) ESRF (end stage renal failure) Code(s): N18.6 - END STAGE RENAL DISEASE (6) Hx of CABG Code(s): Z95.1 - PRESENCE OF AORTOCORONARY BYPASS GRAFT (7) PAD (peripheral artery disease) Code(s): I73.9 - PERIPHERAL VASCULAR DISEASE, UNSPECIFIED (8) CAD (coronary artery disease) Code(s): I25.10 - ATHSCL HEART DISEASE OF [place] CORONARY ARTERY W/O ANG PCTRS Qualifiers: Coronary Disease-Associated Artery/Lesion type: [place] artery [place] vs. transplanted heart: [place] heart Associated angina: without angina Qualified Code(s): I25.10 - Atherosclerotic heart disease of [place] coronary artery wi thout angina pectoris (9) Hyperlipidemia Code(s): E78.5 - HYPERLIPIDEMIA, UNSPECIFIED Qualifiers: Hyperlipidemia type: pure hypercholesterolemia Qualified Code(s): E78.00 - Pure hypercholesterolemia, unspecified; E78.0 - Pure hypercholesterolemia (10) Hypertension Code(s): I10 - ESSENTIAL (PRIMARY) HYPERTENSION Qualifiers: Hypertension type: essential hypertension Qualified Code(s): I10 - Essent ial (primary) hypertension (11) PVD (peripheral vascular disease) Code(s): I73.9 - PERIPHERAL VASCULAR DISEASE, UNSPECIFIED Assessment/Plan LLE cellulitis/foot abscess - s/p drainage Diabetic foot ulcer Fever Leukocytosis Neuropathy PVD CAD s/p CABG CKD wound cx pending monitor rest as per the team wound care
[2020-07-03] MEDS ORDERED: INSULIN (NOVOLOG) ASPART 100 UNITS/ML 10ML VIAL ONE (10:57)
--- NOTE | 2020-07-03 18:39 | PN ---
Progress Note, Physician Chief Complaint: Weakness History of Present Illness: Seen and examined at the bedside awake and alert denies any shortness of breath or chest pain no abdominal discomfort making urine feels better overall - Current Medication List Current Medications: Active Medications Acetaminophen (Tylenol -) 650 mg PO Q4H PRN PRN Reason: FEVER Last Admin: 06/30/20 21:52 Dose: 650 mg Documented by: Albuterol/Ipratropium (Duoneb -) 1 amp NEB Q6H PRN PRN Reason: WHEEZING Last Admin: 07/02/20 21:50 Dose: 1 amp Documented by: Amlodipine Besylate (Norvasc -) 5 mg PO DAILY [facility] Last Admin: 07/03/20 10:09 Dose: 5 mg Documented by: Apixaban (Eliquis -) 2.5 mg PO BID [facility] Last Admin: 07/03/20 10:08 Dose: 2.5 mg Documented by: Aspirin (Ecotrin -) 81 mg PO DAILY [facility] Last Admin: 07/03/20 10:09 Dose: 81 mg Documented by: Duloxetine HCl (Cymbalta -) 40 mg PO DAILY [facility] Last Admin: 07/03/20 10:08 Dose: 40 mg Documented by: Gabapentin (Neurontin -) 100 mg PO BID [facility] Last Admin: 07/03/20 10:08 Dose: 100 mg Documented by: Guaifenesin (Robitussin -) 5 ml PO Q8H PRN PRN Reason: COUGH Last Admin: 07/02/20 16:57 Dose: 5 ml Documented by: Piperacillin Sod/Tazobactam (Sod 2.25 gm/ Dextrose) 50 mls @ 100 mls/hr IVPB Q8H-IV [facility]; Protocol Last Admin: 07/03/20 17:04 Dose: 100 mls/hr Documented by: Insulin Aspart (Novolog Vial Sliding Scale -) 1 vial SQ ACHS [facility]; Protocol Last Admin: 07/03/20 17:04 Dose: 2 units Documented by: Insulin Detemir (Levemir Vial) 30 units SQ HS [facility] Last Admin: 07/02/20 21:42 Dose: 30 unit Documented by: Metoprolol Succinate (Toprol Xl -) 25 mg PO DAILY [facility] Last Admin: 07/03/20 10:09 Dose: 25 mg Documented by: Pantoprazole Sodium (Protonix -) 20 mg PO DAILY [facility] Last Admin: 07/03/20 10:09 Dose: 20 mg Documented by: Sevelamer Carbonate (Renvela -) 800 mg PO TIDCM [facility] Last Admin: 07/03/20 17:03 Dose: 800 mg Documented by: Zolpidem Tartrate (Ambien -) 5 mg PO HS PRN PRN Reason: INSOMNIA Last Admin: 07/02/20 23:15 Dose: 5 mg Documented by: - Objective Vital Signs: Vital Signs Temperature 98.7 F 07/03/20 13:36 Pulse Rate 70 07/03/20 13:36 Respiratory Rate 07/03/20 13:36 Blood Pressure 127/62 07/03/20 13:36 O2 Sat by Pulse Oximetry (%) 96 07/03/20 09:00 Constitutional: Yes: No Distress, Calm HENT: Yes: Atraumatic Neck: Yes: Supple Cardiovascular: Yes: Regular Rate and Rhythm Respiratory: Yes: Regular Gastrointestinal: Yes: Soft Edema: Yes Edema: LLE: 1+ Neurological: Yes: Alert Labs: CBC, BMP 07/03/20 07:20 07/03/20 07:20 Assessment/Plan 70 year old male with history of CKD stage 4/5, IDDM, hypertension, hyperlipidemia, BOBY, CHF, Aflutter, PVD who presented from home with a fall and generalized weakness and noted to have left lower extremity cellulitis with leukocytosis/WBC of 20k and Cr of 4.5. 1. Lower extremity cellulitis r/o osteomylitis 2. CKD stage 4/5 3. Anemia 4. Hx of CHF w/o evidence of acute exacerbation 5. Hypertension 6. Hyperlipidemia Renal function now graduall worsening, now eGFR ~8 Appears euvolemic on examination No overt electrolyte or acid/base disturbances will discuss with the patient and if pt would be amenable to starting dialysis as pt has a low eGFR and difficultly with volume management as an o utpatient. Continue antibiotics for LE cellulitis Imaging studies showed no abcess or collection f/u final cultures Renal diet No JEWEL/ARB given low eGFR Thank you Jonah Painting DO
--- NOTE | 2020-07-03 20:17 | PN ---
Progress Note (short form) - Note Progress Note: Renal follow up Given low eGFR and repetitive admissions for volume retention/LE swelling and wounds it was decided after a discussion with Mr. Red and his that it was time to start the dialysis. Hopefully with the dialysis we will be able to prevent the fluid retention leading to his edema and minimize the risk of the lower extremity wounds. The risks and benefits of dialysis were explained to them and they were both in agreement to start the dialysis. I will discuss with Dr. Garcia when he would be able to place a tunneled dialysis catheter as his AVF is not yet ready to use. Thank you Jonah Painting DO
[2020-07-03] MEDS: INSULIN (LEVEMIR) 100 UNITS/ML UNITS SQ SCH (21:42)
[2020-07-03] MEDS: ZOLPIDEM TARTRATE 5 MG TABLET PO PRN (21:43)
--- NOTE | 2020-07-03 22:32 | PN ---
Progress Note, Physician History of Present Illness: No new complaints - Current Medication List Current Medications: Active Medications Acetaminophen (Tylenol -) 650 mg PO Q4H PRN PRN Reason: FEVER Last Admin: 06/30/20 21:52 Dose: 650 mg Documented by: Albuterol/Ipratropium (Duoneb -) 1 amp NEB Q6H PRN PRN Reason: WHEEZING Last Admin: 07/02/20 21:50 Dose: 1 amp Documented by: Amlodipine Besylate (Norvasc -) 5 mg PO DAILY [facility] Last Admin: 07/03/20 10:09 Dose: 5 mg Documented by: Apixaban (Eliquis -) 2.5 mg PO BID [facility] Last Admin: 07/03/20 21:43 Dose: 2.5 mg Documented by: Aspirin (Ecotrin -) 81 mg PO DAILY [facility] Last Admin: 07/03/20 10:09 Dose: 81 mg Documented by: Duloxetine HCl (Cymbalta -) 40 mg PO DAILY [facility] Last Admin: 07/03/20 10:08 Dose: 40 mg Documented by: Gabapentin (Neurontin -) 100 mg PO BID [facility] Last Admin: 07/03/20 21:43 Dose: 100 mg Documented by: Guaifenesin (Robitussin -) 5 ml PO Q8H PRN PRN Reason: COUGH Last Admin: 07/02/20 16:57 Dose: 5 ml Documented by: Piperacillin Sod/Tazobactam (Sod 2.25 gm/ Dextrose) 50 mls @ 100 mls/hr IVPB Q8H-IV [facility]; Protocol Last Admin: 07/03/20 17:04 Dose: 100 mls/hr Documented by: Insulin Aspart (Novolog Vial Sliding Scale -) 1 vial SQ ACHS [facility]; Protocol Last Admin: 07/03/20 21:40 Dose: 4 units Documented by: Insulin Detemir (Levemir Vial) 30 units SQ HS [facility] Last Admin: 07/03/20 21:42 Dose: 30 unit Documented by: Metoprolol Succinate (Toprol Xl -) 25 mg PO DAILY [facility] Last Admin: 07/03/20 10:09 Dose: 25 mg Documented by: Pantoprazole Sodium (Protonix -) 20 mg PO DAILY [facility] Last Admin: 07/03/20 10:09 Dose: 20 mg Documented by: Sevelamer Carbonate (Renvela -) 800 mg PO TIDCM [facility] Last Admin: 07/03/20 17:03 Dose: 800 mg Documented by: Zolpidem Tartrate (Ambien -) 5 mg PO HS PRN PRN Reason: INSOMNIA Last Admin: 07/03/20 21:43 Dose: 5 mg Documented by: - Objective Vital Signs: Vital Signs Temperature 98.3 F 07/03/20 20:57 Pulse Rate 69 07/03/20 20:57 Respiratory Rate 18 07/03/20 20:57 Blood Pressure 145/64 07/03/20 20:57 O2 Sat by Pulse Oximetry (%) 96 07/03/20 20:57 Neck: Yes: WNL, Supple Cardiovascular: Yes: WNL, Regular Rate and Rhythm Respiratory: Yes: WNL, Regular, CTA Bilaterally Gastrointestinal: Yes: WNL, Normal Bowel Sounds, Soft Extremities: Yes: Other (Lt foot in dressing) Labs: CBC, BMP 07/03/20 07:20 07/03/20 07:20 Problem List - Problems (1) Cellulitis Assessment/Plan: Cont IV antibxs S/P drainage lt foot ulcer Awaiting cultures MRI lt foot was negative for osteo/abscess Cont wound care Code(s): L03.90 - CELLULITIS, UNSPECIFIED (2) Cough Assessment/Plan: Cont duoneb CAR showed ?LLL atelectasis vs infiltrate Check ct scan chest Code(s): R05 - COUGH (3) ESRF (end stage renal failure) Assessment/Plan: Monitor BUN/creatinine As per renal Code(s): N18.6 - END STAGE RENAL DISEASE (4) Hypertension Assessment/Plan: Cont norvasc/metoprolol Code(s): I10 - ESSENTIAL (PRIMARY) HYPERTENSION Qualifiers: Hypertension type: essential hypertension Qualified Code(s): I10 - Essential (primary) hypertension (5) Diabetes Assessment/Plan: Cont levemir Cont sliding scale w/ coverage Code(s): E11.9 - TYPE 2 DIABETES MELLITUS WITHOUT COMPLICATIONS (6) CHF (congestive heart failure) Assessment/Plan: Cont lasix for now Code(s): I50.9 - HEART FAILURE, UNSPECIFIED (7) Diabetic neuropathy Code(s): E11.40 - TYPE 2 DIABETES MELLITUS WITH DIABETIC NEUROPATHY, UNSP (8) Hx of CABG Code(s): Z95.1 - PRESENCE OF AORTOCORONARY BYPASS GRAFT (9) CAD (coronary artery disease) Code(s): I25.10 - ATHSCL HEART DISEASE OF [place] CORONARY ARTERY W/O ANG PCTRS Qualifiers: Coronary Disease-Associated Artery/Lesion type: [place] artery [place] vs. transplanted heart: [place] heart Associated angina: without angina Qualified Code(s): I25.10 - Atherosclerotic heart disease of [place] coronary artery without angina pectoris (10) Hyperlipidemia Code(s): E78.5 - HYPERLIPIDEMIA, UNSPECIFIED Qualifiers: Hyperlipidemia type: pure hypercholesterolemia Qualified Code(s): E78.00 - Pure hypercholesterolemia, unspecified; E78.0 - Pure hypercholesterolemia (11) PVD (peripheral vascular disease) Code(s): I73.9 - PERIPHERAL VASCULAR DISEASE, UNSPECIFIED
[2020-07-04] MEDS ORDERED: PIPERACILLIN/TAZOBACTAM 2.25 GM VIAL IVPB ONE ×3 (01:27→17:30)
[2020-07-04] MEDS ORDERED: DEXTROSE 5%-WATER - 50 ML IVPB ONE ×3 (01:27→17:30)
[2020-07-04] MEDS: PIPERACILLIN/TAZOB 2.25 GM 2.25 GM in DEXTROSE 5%-WATER - 50 ML IVPB SCH ×3 (01:36→17:34)
[2020-07-04] MEDS: INSULIN SLIDING SCALE (NOVOLOG) 1 VIAL SQ SCH ×4 (06:25→21:27)
[2020-07-04 07:40] LABS: BASO % 0.5 % (0-2.0); EOS % 2.2 % (0-4.5); HEMATOCRIT 24.3 % (35.4-49); HEMOGLOBIN 7.5 GM/dL (11.7-16.9); LYMPH % 9.3 % (8-40); MCH 25.5 pg (25.7-33.7); MCHC 31.1 g/dl (32.0-35.9); MEAN CELL VOLUME 82.1 fl (80-96); MEAN PLT VOLUME 8.8 fl (7.5-11.1); MONO % 7.7 % (3.8-10.2); NEUT % 80.3 % (42.8-82.8); PLATELET COUNT 376 K/MM3 (134-434); RBC 2.96 M/mm3 (4.00-5.60); RDW 15.3 % (11.9-15.9); WHITE BLOOD COUNT 11.5 K/mm3 (4.0-10.0)
[2020-07-04 07:55] LABS: ALBUMIN 1.5 g/dl (3.4-5.0); BILIRUBIN,TOTAL 0.2 mg/dL (0.2-1); CALCIUM 7.2 mg/dL (8.5-10.1); POTASSIUM 4.2 mmol/L (3.5-5.1); TOT PROT 6.2 g/dl (6.4-8.2)
[2020-07-04] MEDS ORDERED: PT OWN MED DRAWER 7, Y5N ONE (09:04)
[2020-07-04] MEDS: SEVELAMER CARBONATE 800 MG TAB (FP) PO SCH ×3 (09:07→17:37)
[2020-07-04] MEDS: DULoxetine HCL 20 MG CAPSULE.DR PO SCH (09:08)
[2020-07-04] MEDS: GABAPENTIN 100 MG CAPSULE PO SCH ×2 (09:08→21:27)
[2020-07-04] MEDS: metoPROLOL SUCCINATE 25 MG TAB.SR.24H (FP) PO SCH (09:08)
[2020-07-04] MEDS: APIXABAN 2.5 MG TABLET PO SCH ×2 (09:08→21:26)
[2020-07-04] MEDS: PANTOPRAZOLE 20 MG TABLET PO SCH (09:08)
[2020-07-04] MEDS: ASPIRIN COATED 81 MG TABLET.EC PO SCH (09:08)
[2020-07-04] MEDS: amLODIPine BESYLATE 5 MG TABLET (FP) PO SCH (09:08)
--- NOTE | 2020-07-04 11:56 | PN ---
Progress Note, Physician History of Present Illness: patient stable no new issues - Current Medication List Current Medications: Active Medications Acetaminophen (Tylenol -) 650 mg PO Q4H PRN PRN Reason: FEVER Last Admin: 06/30/20 21:52 Dose: 650 mg Documented by: Albuterol/Ipratropium (Duoneb -) 1 amp NEB Q6H PRN PRN Reason: WHEEZING Last Admin: 07/02/20 21:50 Dose: 1 amp Documented by: Amlodipine Besylate (Norvasc -) 5 mg PO DAILY [facility] Last Admin: 07/04/20 09:08 Dose: 5 mg Documented by: Apixaban (Eliquis -) 2.5 mg PO BID [facility] Last Admin: 07/04/20 09:08 Dose: 2.5 mg Documented by: Aspirin (Ecotrin -) 81 mg PO DAILY [facility] Last Admin: 07/04/20 09:08 Dose: 81 mg Documented by: Duloxetine HCl (Cymbalta -) 40 mg PO DAILY [facility] Last Admin: 07/04/20 09:08 Dose: 40 mg Documented by: Gabapentin (Neurontin -) 100 mg PO BID [facility] Last Admin: 07/04/20 09:08 Dose: 100 mg Documented by: Guaifenesin (Robitussin -) 5 ml PO Q8H PRN PRN Reason: COUGH Last Admin: 07/02/20 16:57 Dose: 5 ml Documented by: Piperacillin Sod/Tazobactam (Sod 2.25 gm/ Dextrose) 50 mls @ 100 mls/hr IVPB Q8H-IV [facility]; Protocol Last Admin: 07/04/20 09:07 Dose: 100 mls/hr Documented by: Insulin Aspart (Novolog Vial Sliding Scale -) 1 vial SQ ACHS [facility]; Protocol Last Admin: 07/04/20 11:44 Dose: Not Given Documented by: Insulin Detemir (Levemir Vial) 30 units SQ HS [facility] Last Admin: 07/03/20 21:42 Dose: 30 unit Documented by: Metoprolol Succinate (Toprol Xl -) 25 mg PO DAILY [facility] Last Admin: 07/04/20 09:08 Dose: 25 mg Documented by: Pantoprazole Sodium (Protonix -) 20 mg PO DAILY [facility] Last Admin: 07/04/20 09:08 Dose: 20 mg Documented by: Sevelamer Carbonate (Renvela -) 800 mg PO TIDCM [facility] Last Admin: 07/04/20 09:07 Dose: 800 mg Documented by: Zolpidem Tartrate (Ambien -) 5 mg PO HS PRN PRN Reason: INSOMNIA Last Admin: 07/03/20 21:43 Dose: 5 mg Documented by: - Objective Vital Signs: Vital Signs Temperature 98.4 F 07/04/20 08:00 Pulse Rate 78 07/04/20 08:00 Respiratory Rate 19 07/04/20 08:00 Blood Pressure 153/71 07/04/20 08:00 O2 Sat by Pulse Oximetry (%) 98 07/04/20 09:00 Constitutional: Yes: No Distress, Calm Respiratory: Yes: Regular, CTA Bilaterally Gastrointestinal: Yes: Normal Bowel Sounds, Soft Musculoskeletal: Yes: WNL Extremities: Yes: Other Wound/Incision: Yes: Dressing Dry and Intact Neurological: Yes: Alert, Oriented Psychiatric: Yes: Alert, Oriented Labs: CBC, BMP 07/04/20 07:00 07/04/20 07:00 Assessment/Plan Problem List - Problems (1) Cellulitis Code(s): L03.90 - CELLULITIS, UNSPECIFIED (2) Diabetes Code(s): E11.9 - TYPE 2 DIABETES MELLITUS WITHOUT COMPLICATIONS (3) CHF (congestive heart failure) Code(s): I50.9 - HEART FAILURE, UNSPECIFIED (4) Diabetic neuropathy Code(s): E11.40 - TYPE 2 DIABETES MELLITUS WITH DIABETIC NEUROPATHY, UNSP (5) ESRF (end stage renal failure) Code(s): N18.6 - END STAGE RENAL DISEASE (6) Hx of CABG Code(s): Z95.1 - PRESENCE OF AORTOCORONARY BYPASS GRAFT (7) PAD (peripheral artery disease) Code(s): I73.9 - PERIPHERAL VASCULAR DISEASE, UNSPECIFIED (8) CAD (coronary artery disease) Code(s): I25.10 - ATHSCL HEART DISEASE OF [place] CORONARY ARTERY W/O ANG PCTRS Qualifiers: Coronary Disease-Associated Artery/Lesion type: [place] artery [place] vs. transplanted heart: [place] heart Associated angina: without angina Qualified Code(s): I25.10 - Atherosclerotic heart disease of [place] coronary artery without angina pectoris (9) Hyperlipidemia Code(s): E78.5 - HYPERLIPIDEMIA, UNSPECIFIED Qualifiers: Hyperlipidemia type: pure hypercholesterolemia Qualified Code(s): E78.00 - Pure hypercholesterolemia, unspecified; E78.0 - Pure hypercholesterolemia (10) Hypertension Code(s): I10 - ESSENTIAL (PRIMARY) HYPERTENSION Qualifiers: Hypertension type: essential hypertension Qualified Code(s): I10 - Essential (primary) hypertension (11) PVD (peripheral vascular disease) Code(s): I73.9 - PERIPHERAL VASCULAR DISEASE, UNSPECIFIED Assessment/Plan LLE cellulitis/foot abscess - s/p drainage Diabetic foot ulcer Fever Leukocytosis Neuropathy PVD CAD s/p CABG CKD wound cx showing mrsa also will add doxy awaiting sensitivities rest as per the team
[2020-07-04] MEDS: DOXYCYCLINE HYCLATE 100 MG CAPSULE PO SCH ×2 (12:58→17:37)
--- NOTE | 2020-07-04 16:17 | PN ---
Progress Note (short form) - Note Progress Note: Podiatry F/U; Seen/evaluated at bedside NAD. Pain mild to the left foot. Currently afebrile, vitals stable. KOREY: L foot: fifth metatarsal base diabetic ulcer with mostly fibrotic slough, surrounding erythema mildly improved. Probes deep to bone and tracks superiorly to the midfoot. There is mild seropurulent drainage. There is no fluctuance, no soft tissue crepitus, no streaking ascending cellulitis, no signs of acute infection. Wound Cx: MRSA, enterobacter Imp: 70 year old diabetic male with left fifth metatarsal base diabetic ulcer and cellulitis 1. IV abx per infectious disease 2. Packing and DSD applied after saline irrigation to the left foot 3. Will continue to monitor Arsalan Powell DPM
--- NOTE | 2020-07-04 17:17 | PN ---
Progress Note, Physician History of Present Illness: Pt seen and examined at bedside. He denies shortness of breath. - Current Medication List Current Medications: Active Medications Acetaminophen (Tylenol -) 650 mg PO Q4H PRN PRN Reason: FEVER Last Admin: 06/30/20 21:52 Dose: 650 mg Documented by: Albuterol/Ipratropium (Duoneb -) 1 amp NEB Q6H PRN PRN Reason: WHEEZING Last Admin: 07/02/20 21:50 Dose: 1 amp Documented by: Amlodipine Besylate (Norvasc -) 5 mg PO DAILY [facility] Last Admin: 07/04/20 09:08 Dose: 5 mg Documented by: Apixaban (Eliquis -) 2.5 mg PO BID [facility] Last Admin: 07/04/20 09:08 Dose: 2.5 mg Documented by: Aspirin (Ecotrin -) 81 mg PO DAILY [facility] Last Admin: 07/04/20 09:08 Dose: 81 mg Documented by: Doxycycline Hyclate (Vibramycin -) 100 mg PO BID@1000,1800 [facility] Last Admin: 07/04/20 12:58 Dose: 100 mg Documented by: Duloxetine HCl (Cymbalta -) 40 mg PO DAILY [facility] Last Admin: 07/04/20 09:08 Dose: 40 mg Documented by: Gabapentin (Neurontin -) 100 mg PO BID [facility] Last Admin: 07/04/20 09:08 Dose: 100 mg Documented by: Guaifenesin (Robitussin -) 5 ml PO Q8H PRN PRN Reason: COUGH Last Admin: 07/02/20 16:57 Dose: 5 ml Documented by: Piperacillin Sod/Tazobactam (Sod 2.25 gm/ Dextrose) 50 mls @ 100 mls/hr IVPB Q8H-IV [facility]; Protocol Last Admin: 07/04/20 09:07 Dose: 100 mls/hr Documented by: Insulin Aspart (Novolog Vial Sliding Scale -) 1 vial SQ ACHS [facility]; Protocol Last Admin: 07/04/20 16:34 Dose: 2 units Documented by: Insulin Detemir (Levemir Vial) 30 units SQ HS [facility] Last Admin: 07/03/20 21:42 Dose: 30 unit Documented by: Metoprolol Succinate (Toprol Xl -) 25 mg PO DAILY [facility] Last Admin: 09/01/20 09:08 Dose: 25 mg Documented by: Pantoprazole Sodium (Protonix -) 20 mg PO DAILY [facility] Last Admin: 07/04/20 09:08 Dose: 20 mg Documented by: Sevelamer Carbonate (Renvela -) 800 mg PO TIDCM [facility] Last Admin: 07/04/20 12:57 Dose: 800 mg Documented by: Zolpidem Tartrate (Ambien -) 5 mg PO HS PRN PRN Reason: INSOMNIA Last Admin: 07/03/20 21:43 Dose: 5 mg Documented by: - Objective Vital Signs: Vital Signs Temperature 98.5 F 07/04/20 12:00 Pulse Rate 61 07/04/20 12:00 Respiratory Rate 19 07/04/20 12:00 Blood Pressure 134/62 07/04/20 12:00 O2 Sat by Pulse Oximetry (%) 92 L 07/04/20 12:00 Constitutional: Yes: Calm Eyes: Yes: Conjunctiva Clear HENT: Yes: Atraumatic Neck: Yes: Supple Cardiovascular: Yes: S1, S2 Respiratory: Yes: CTA Bilaterally Gastrointestinal: Yes: Soft Genitourinary: Yes: WNL Edema: Yes Edema: LLE: 1+, RLE: 1+ Neurological: Yes: Oriented Psychiatric: Yes: Oriented Labs: CBC, BMP 07/04/20 07:00 07/04/20 07:00 Assessment/Plan Current Medications Generic Name Dose Route Start Last Admin Trade Name Freq PRN Reason Stop Dose Admin Acetaminophen 650 mg 06/29/20 01:02 06/30/20 21:52 Tylenol - PO 650 mg Q4H PRN Administration FEVER Albuterol/Ipratropium 1 amp 07/02/20 16:39 07/02/20 21:50 Duoneb - NEB 1 amp Q6H PRN Administration WHEEZING Amlodipine Besylate 5 mg 06/28/20 18:00 07/04/20 09:08 Norvasc - PO 5 mg DAILY [facility] Administration Apixaban 2.5 mg 06/28/20 22:00 07/04/20 09:08 Eliquis - PO 2.5 mg BID [facility] Administration Aspirin 81 mg 06/29/20 10:00 07/04/20 09:08 Ecotrin - PO 81 mg DAILY [facility] Administration Doxycycline Hyclate 100 mg 07/04/20 11:53 07/04/20 12:58 Vibramycin - PO 100 mg BID@1000,1800 [facility] Administration Duloxetine HCl 40 mg 06/29/20 10:00 07/04/20 09:08 Cymbalta - PO 40 mg DAILY [facility] Administration Gabapentin 100 mg 06/28/20 22:00 07/04/20 09:08 Neurontin - PO 100 mg BID [facility] Administration Guaifenesin 5 ml 07/02/20 16:05 07/02/20 16:57 Robitussin - PO 5 ml Q8H PRN Administration COUGH Piperacillin Sod/Tazobactam 50 mls @ 100 mls/hr 06/28/20 18:00 07/04/20 09:07 Sod 2.25 gm/ Dextrose IVPB 100 mls/hr Q8H-IV [facility] Administration Protocol Insulin Aspart 1 vial 06/29/20 07:00 07/04/20 16:34 Novolog Vial Sliding Scale - SQ 2 units ACHS [facility] Administration Protocol Insulin Detemir 30 units 06/28/20 22:00 07/03/20 21:42 Levemir Vial SQ 30 unit HS [facility] Administration Metoprolol Succinate 25 mg 06/28/20 18:00 07/04/20 09:08 Toprol Xl - PO 25 mg DAILY [facility] Administration Pantoprazole Sodium 20 mg 06/29/20 10:00 07/04/20 09:08 Protonix - PO 20 mg DAILY [facility] Administration Sevelamer Carbonate 800 mg 07/01/20 17:30 07/04/20 12:57 Renvela - PO 800 mg TIDCM [facility] Administration Zolpidem Tartrate 5 mg 07/02/20 22:20 07/03/20 21:43 Ambien - PO 5 mg HS PRN Administration INSOMNIA 1. Lower extremity cellulitis r/o osteomylitis 2. CKD stage 4/5 3. Anemia 4. Hx of CHF w/o evidence of acute exacerbation 5. Hypertension 6. Hyperlipidemia Plan - cont to monitor renal function - potassium stable - renal diet - start po bicarb - hold whit or arb - Dr Painting to discuss HD with pt further tomorrow
--- NOTE | 2020-07-04 17:23 | PN ---
Progress Note (short form) - Note Progress Note: Vascular Surgery Pt seen and examined. Feels better. Cultures show mrsa. Awaiting sensitivities. Wound repacked today. Pt needs permacath for HD Will do morning at 8am. Matt Garcia DO
[2020-07-04] MEDS: SODIUM BICARBONATE 650 MG TABLET PO SCH ×2 (17:38→21:26)
[2020-07-04] MEDS: ALBUTEROL SO4 2.5/IPRATROPIUM 0.5 INH SOL 3 ML VIAL.NEB. NEB PRN (20:25)
[2020-07-04] MEDS ORDERED: INSULIN (NOVOLOG) ASPART 100 UNITS/ML 10ML VIAL ONE (21:24)
[2020-07-04] MEDS: ZOLPIDEM TARTRATE 5 MG TABLET PO PRN (21:26)
[2020-07-04] MEDS: INSULIN (LEVEMIR) 100 UNITS/ML UNITS SQ SCH (21:27)
--- NOTE | 2020-07-04 22:16 | PN ---
Progress Note, Physician History of Present Illness: No new complaints - Current Medication List Current Medications: Active Medications Acetaminophen (Tylenol -) 650 mg PO Q4H PRN PRN Reason: FEVER Last Admin: 06/30/20 21:52 Dose: 650 mg Documented by: Albuterol/Ipratropium (Duoneb -) 1 amp NEB Q6H PRN PRN Reason: WHEEZING Last Admin: 07/04/20 20:25 Dose: 1 amp Documented by: Amlodipine Besylate (Norvasc -) 5 mg PO DAILY [facility] Last Admin: 07/04/20 09:08 Dose: 5 mg Documented by: Apixaban (Eliquis -) 2.5 mg PO BID [facility] Last Admin: 07/04/20 21:26 Dose: 2.5 mg Documented by: Aspirin (Ecotrin -) 81 mg PO DAILY [facility] Last Admin: 07/04/20 09:08 Dose: 81 mg Documented by: Doxycycline Hyclate (Vibramycin -) 100 mg PO BID@1000,1800 [facility] Last Admin: 07/04/20 17:37 Dose: 100 mg Documented by: Duloxetine HCl (Cymbalta -) 40 mg PO DAILY [facility] Last Admin: 07/04/20 09:08 Dose: 40 mg Documented by: Gabapentin (Neurontin -) 100 mg PO BID [facility] Last Admin: 07/04/20 21:27 Dose: 100 mg Documented by: Guaifenesin (Robitussin -) 5 ml PO Q8H PRN PRN Reason: COUGH Last Admin: 07/02/20 16:57 Dose: 5 ml Documented by: Piperacillin Sod/Tazobactam (Sod 2.25 gm/ Dextrose) 50 mls @ 100 mls/hr IVPB Q8H-IV [facility]; Protocol Last Admin: 07/04/20 17:34 Dose: 100 mls/hr Documented by: Insulin Aspart (Novolog Vial Sliding Scale -) 1 vial SQ ACHS [facility]; Protocol Last Admin: 07/04/20 21:27 Dose: 2 units Documented by: Insulin Detemir (Levemir Vial) 30 units SQ HS [facility] Last Admin: 07/04/20 21:27 Dose: 30 unit Documented by: Metoprolol Succinate (Toprol Xl -) 25 mg PO DAILY [facility] Last Admin: 07/04/20 09:08 Dose: 25 mg Documented by: Pantoprazole Sodium (Protonix -) 20 mg PO DAILY [facility] Last Admin: 07/04/20 09:08 Dose: 20 mg Documented by: Sevelamer Carbonate (Renvela -) 800 mg PO TIDCM [facility] Last Admin: 07/04/20 17:37 Dose: 800 mg Documented by: Sodium Bicarbonate (Sodium Bicarbonate -) 650 mg PO BID [facility] Last Admin: 07/04/20 21:26 Dose: 650 mg Documented by: Zolpidem Tartrate (Ambien -) 5 mg PO HS PRN PRN Reason: INSOMNIA Last Admin: 07/04/20 21:26 Dose: 5 mg Documented by: - Objective Vital Signs: Vital Signs Temperature 98.2 F 07/04/20 20:28 Pulse Rate 73 07/04/20 20:28 Respiratory Rate 07/04/20 20:28 Blood Pressure 157/67 07/04/20 20:28 O2 Sat by Pulse Oximetry (%) 99 07/04/20 20:28 Cardiovascular: Yes: WNL, Regular Rate and Rhythm Respiratory: Yes: WNL, Regular, CTA Bilaterally Gastrointestinal: Yes: WNL, Normal Bowel Sounds, Soft Extremities: Yes: Other (Lt foot w/ dressing) Labs: CBC, BMP 07/04/20 07:00 07/04/20 07:00 Problem List - Problems (1) Cellulitis Assessment/Plan: Cont IV antibxs S/P drainage lt foot ulcer MRI lt foot was negative for osteo/abscess Cont wound care Code(s): L03.90 - CELLULITIS, UNSPECIFIED (2) Cough Assessment/Plan: Cont duoneb CXR showed ?LLL atelectasis vs infiltrate Check ct scan chest Code(s): R05 - COUGH (3) ESRF (end stage renal failure) Assessment/Plan: Monitor BUN/creatinine As per renal Pt for perma cath placement Code(s): N18.6 - END STAGE RENAL DISEASE (4) Hypertension Code(s): I10 - ESSENTIAL (PRIMARY) HYPERTENSION Qualifiers: Hypertension type: essential hypertension Qualified Code(s): I10 - Essential (primary) hypertension (5) Diabetes Code(s): E11.9 - TYPE 2 DIABETES MELLITUS WITHOUT COMPLICATIONS (6) CHF (congestive heart failure) Code(s): I50.9 - HEART FAILURE, UNSPECIFIED (7) Diabetic neuropathy Code(s): E11.40 - TYPE 2 DIABETES MELLITUS WITH DIABETIC NEUROPATHY, UNSP (8) Hx of CABG Code(s): Z95.1 - PRESENCE OF AORTOCORONARY BYPASS GRAFT (9) CAD (coronary artery disease) Code(s): I25.10 - ATHSCL HEART DISEASE OF [place] CORONARY ARTERY W/O ANG PCTRS Qualifiers: Coronary Disease-Associated Artery/Lesion type: [place] artery [place] vs. transplanted heart: [place] heart Associated angina: without angina Qualified Code(s): I25.10 - Atherosclerotic heart disease of [place] coronary artery without angina pectoris (10) Hyperlipidemia Code(s): E78.5 - HYPERLIPIDEMIA, UNSPECIFIED Qualifiers: Hyperlipidemia type: pure hypercholesterolemia Qualified Code(s): E78.00 - Pure hypercholesterolemia, unspecified; E78.0 - Pure hypercholesterolemia (11) PVD (peripheral vascular disease) Code(s): I73.9 - PERIPHERAL VASCULAR DISEASE, UNSPECIFIED
[2020-07-05] MEDS ORDERED: PIPERACILLIN/TAZOBACTAM 2.25 GM VIAL IVPB ONE ×3 (01:07→17:20)
[2020-07-05] MEDS ORDERED: DEXTROSE 5%-WATER - 50 ML IVPB ONE ×3 (01:07→17:20)
[2020-07-05] MEDS: PIPERACILLIN/TAZOB 2.25 GM 2.25 GM in DEXTROSE 5%-WATER - 50 ML IVPB SCH ×3 (01:17→17:29)
[2020-07-05] MEDS: guaiFENesin 200 MG/10 ML 10 ML UNIT-DOSE CUPS PO PRN ×2 (03:28→17:28)
[2020-07-05] MEDS: INSULIN SLIDING SCALE (NOVOLOG) 1 VIAL SQ SCH ×4 (06:01→21:55)
[2020-07-05 07:41] LABS: BASO % 0.6 % (0-2.0); HEMATOCRIT 22.9 % (35.4-49); HEMOGLOBIN 7.2 GM/dL (11.7-16.9); LYMPH % 9.8 % (8-40); MCH 25.6 pg (25.7-33.7); MCHC 31.3 g/dl (32.0-35.9); MEAN CELL VOLUME 81.6 fl (80-96); MEAN PLT VOLUME 8.4 fl (7.5-11.1); NEUT % 81.6 % (42.8-82.8); PLATELET COUNT 393 K/MM3 (134-434); RBC 2.81 M/mm3 (4.00-5.60); RDW 15.1 % (11.9-15.9); WHITE BLOOD COUNT 11.1 K/mm3 (4.0-10.0)
--- NOTE | 2020-07-05 07:47 | SPA.PREOP ---
- PRE-OP NOTE Dx: End stage renal failure Planned Procedure: Permacath placement Surgeon: Matt Garcia DO Last Vital Signs Temp Pulse Resp BP Pulse Ox 98 F 77 20 153/73 97 07/05/20 05:25 07/05/20 05:25 07/05/20 05:25 07/05/20 05:25 07/05/20 05:25 Lab Results WBC 11.5 K/mm3 (4.0-10.0) H 07/04/20 07:00 RBC 2.96 M/mm3 (4.00-5.60) L 07/04/20 07:00 Hgb 7.5 GM/dL (11.7-16.9) L 07/04/20 07:00 Hct 24.3 % (35.4-49) L 07/04/20 07:00 MCV 82.1 fl (80-96) 07/04/20 07:00 MCHC 31.1 g/dl (32.0-35.9) L 07/04/20 07:00 RDW 15.3 % (11.9-15.9) 07/04/20 07:00 Plt Count 376 K/MM3 (134-434) 07/04/20 07:00 Sodium 139 mmol/L (136-145) 07/04/20 07:00 Potassium 4.2 mmol/L (3.5-5.1) 07/04/20 07:00 Chloride 108 mmol/L (98-107) H 07/04/20 07:00 Carbon Dioxide 19 mmol/L (21-32) L 07/04/20 07:00 Anion Gap 12 MMOL/L (8-16) 07/04/20 07:00 BUN 80.0 mg/dL (7-18) H 07/04/20 07:00 Creatinine 6.0 mg/dL (0.55-1.3) H 07/04/20 07:00 Random Glucose 80 mg/dL (74-106) 07/04/20 07:00 Calcium 7.2 mg/dL (8.5-10.1) L 07/04/20 07:00 - ASSESSMENT/PLAN 1. Make NPO after midnight except po meds 2. GI/DVT PPX 3. Medical optimization / clearance 4. Consent to be obtained by surgeon after risks, benefits and alternatives discussed with patient and or Health Care Proxy.
[2020-07-05 08:03] LABS: ALBUMIN 1.5 g/dl (3.4-5.0); BILIRUBIN,TOTAL 0.2 mg/dL (0.2-1); BLOOD UREA NITROGEN 79.3 mg/dL (7-18); CALCIUM 7.6 mg/dL (8.5-10.1); POTASSIUM 4.5 mmol/L (3.5-5.1); TOT PROT 6.3 g/dl (6.4-8.2)
[2020-07-05] MEDS ORDERED: PT OWN MED DRAWER 7, Y5N ONE (08:50)
[2020-07-05] MEDS: metoPROLOL SUCCINATE 25 MG TAB.SR.24H (FP) PO SCH (09:10)
[2020-07-05] MEDS: DULoxetine HCL 20 MG CAPSULE.DR PO SCH (09:10)
[2020-07-05] MEDS: APIXABAN 2.5 MG TABLET PO SCH ×2 (09:10→21:55)
[2020-07-05] MEDS: PANTOPRAZOLE 20 MG TABLET PO SCH (09:10)
[2020-07-05] MEDS: ASPIRIN COATED 81 MG TABLET.EC PO SCH (09:10)
[2020-07-05] MEDS: DOXYCYCLINE HYCLATE 100 MG CAPSULE PO SCH ×2 (09:10→17:28)
[2020-07-05] MEDS: amLODIPine BESYLATE 5 MG TABLET (FP) PO SCH (09:10)
[2020-07-05] MEDS: SODIUM BICARBONATE 650 MG TABLET PO SCH ×2 (09:11→21:55)
[2020-07-05] MEDS: SEVELAMER CARBONATE 800 MG TAB (FP) PO SCH ×3 (09:11→17:28)
[2020-07-05] MEDS: GABAPENTIN 100 MG CAPSULE PO SCH ×2 (09:11→21:55)
--- NOTE | 2020-07-05 10:49 | PN ---
Progress Note (short form) - Note Progress Note: Podiatry F/U: Seen/evaluated at bedside, NAD. Patient states that fevers have broken. Denies F/V/N/C/SOB/CP. Currently afebrile, VSS. Prepared for OR permacath placement tomorrow. Less stinging pain to the left foot. [place]: L foot: pedal pulses 1/4, TG warm-warm, CFT brisk to all digits. There is a fifth metatarsal base diabetic ulcer with fibrotic slough present, probing to capsule. No purulent drainage, no fluctuance, resolving ascending cellulitis. Mild tenderness to palpation. No soft tissue crepitus. Wound Cx: MRSA, enterobacter Imp: 70 year old diabetic male with left fifth metatarsal base diabetic ulcer, cellulitis 1. Abx per infectious disease 2. Packing reapplied after light irrigation 3. Continue monitoring progression of cellulitis 4. Will need close f/u in wound healing center. No operative management for now. 5. For permacath placement tomorrow 6. Will follow
--- NOTE | 2020-07-05 11:27 | PN ---
Progress Note (short form) - Note Progress Note: PULMONARY CONSULTATION DICTATED 07/04/20 IMP COUGH LEFT PLEURAL EFFUSION ?INFECTIOUS,? CHF,? MALIGNANT MEDIASTINAL ADENOPATHY LIKELY REACTIVE DIASTOLIC HF LLE CELLULITIS ASHD S/P CABG H/O AFLUTTER S/P ABLATION CKD PAD DM HTN ANEMIA H/O TIAs PLAN INHALED BRONCHODILATORS ABX PER ID ANTI-TUSSIVES CONSIDER THORACENTESIS F/U CHEST X-RAYS ELIQUIS MONITOR LYTES,RENAL FUNCTION,H+H MONITOR URINE OUTPUT HD PER RENAL F/U CHEST CT OUTPATIENT DR ELIAS Problem List - Problems (1) Cellulitis Code(s): L03.90 - CELLULITIS, UNSPECIFIED (2) Cough Code(s): R05 - COUGH (3) Diabetes Code(s): E11.9 - TYPE 2 DIABETES MELLITUS WITHOUT COMPLICATIONS (4) Atrial fibrillation Code(s): I48.91 - UNSPECIFIED ATRIAL FIBRILLATION (5) CHF (congestive heart failure) Code(s): I50.9 - HEART FAILURE, UNSPECIFIED (6) Diabetic foot infection Code(s): E11.628 - TYPE 2 DIABETES MELLITUS WITH OTHER SKIN COMPLICATIONS; L08.9 - LOCAL INFECTION OF THE SKIN AND SUBCUTANEOUS TISSUE, UNSP (7) Foot ulcer Code(s): L97.509 - NON-PRESSURE CHRONIC ULCER OTH PRT UNSP FOOT W UNSP SEVERITY (8) Hx of CABG Code(s): Z95.1 - PRESENCE OF AORTOCORONARY BYPASS GRAFT (9) PAD (peripheral artery disease) Code(s): I73.9 - PERIPHERAL VASCULAR DISEASE, UNSPECIFIED (10) Hyperlipidemia Code(s): E78.5 - HYPERLIPIDEMIA, UNSPECIFIED Qualifiers: Hyperlipidemia type: pure hypercholesterolemia Qualified Code(s): E78.00 - Pure hypercholesterolemia, unspecified; E78.0 - Pure hypercholesterolemia (11) Hypertension Code(s): I10 - ESSENTIAL (PRIMARY) HYPERTENSION Qualifiers: Hypertension type: essential hypertension Qualified Code(s): I10 - Essential (primary) hypertension (12) PVD (peripheral vascular disease) Code(s): I73.9 - PERIPHERAL VASCULAR DISEASE, UNSPECIFIED
--- NOTE | 2020-07-05 12:21 | PN ---
Progress Note, Physician History of Present Illness: patient stable no new issues leg starting to improve - Current Medication List Current Medications: Active Medications Acetaminophen (Tylenol -) 650 mg PO Q4H PRN PRN Reason: FEVER Last Admin: 06/30/20 21:52 Dose: 650 mg Documented by: Albuterol/Ipratropium (Duoneb -) 1 amp NEB Q6H PRN PRN Reason: WHEEZING Last Admin: 07/04/20 20:25 Dose: 1 amp Documented by: Amlodipine Besylate (Norvasc -) 5 mg PO DAILY [facility] Last Admin: 07/05/20 09:10 Dose: 5 mg Documented by: Apixaban (Eliquis -) 2.5 mg PO BID [facility] Last Admin: 07/05/20 09:10 Dose: 2.5 mg Documented by: Aspirin (Ecotrin -) 81 mg PO DAILY [facility] Last Admin: 07/05/20 09:10 Dose: 81 mg Documented by: Doxycycline Hyclate (Vibramycin -) 100 mg PO BID@1000,1800 [facility] Last Admin: 07/05/20 09:10 Dose: 100 mg Documented by: Duloxetine HCl (Cymbalta -) 40 mg PO DAILY [facility] Last Admin: 07/05/20 09:10 Dose: 40 mg Documented by: Gabapentin (Neurontin -) 100 mg PO BID [facility] Last Admin: 07/05/20 09:11 Dose: 100 mg Documented by: Guaifenesin (Robitussin -) 5 ml PO Q8H PRN PRN Reason: COUGH Last Admin: 07/05/20 03:28 Dose: 5 ml Documented by: Piperacillin Sod/Tazobactam (Sod 2.25 gm/ Dextrose) 50 mls @ 100 mls/hr IVPB Q8H-IV [facility]; Protocol Last Admin: 07/05/20 09:10 Dose: 100 mls/hr Documented by: Insulin Aspart (Novolog Vial Sliding Scale -) 1 vial SQ [facility]; Protocol Last Admin: 07/05/20 11:13 Dose: 4 units Documented by: Insulin Detemir (Levemir Vial) 30 units SQ HS [facility] Last Admin: 07/04/20 21:27 Dose: 30 unit Documented by: Metoprolol Succinate (Toprol Xl -) 25 mg PO DAILY [facility] Last Admin: 07/05/20 09:10 Dose: 25 mg Documented by: Pantoprazole Sodium (Protonix -) 20 mg PO DAILY [facility] Last Admin: 07/05/20 09:10 Dose: 20 mg Documented by: Sevelamer Carbonate (Renvela -) 800 mg PO TIDCM [facility] Last Admin: 07/05/20 09:11 Dose: 800 mg Documented by: Sodium Bicarbonate (Sodium Bicarbonate -) 650 mg PO BID [facility] Last Admin: 07/05/20 09:11 Dose: 650 mg Documented by: Zolpidem Tartrate (Ambien -) 5 mg PO HS PRN PRN Reason: INSOMNIA Last Admin: 07/04/20 21:26 Dose: 5 mg Documented by: - Objective Vital Signs: Vital Signs Temperature 98 F 07/05/20 05:25 Pulse Rate 77 07/05/20 05:25 Respiratory Rate 20 07/05/20 05:25 Blood Pressure 153/73 07/05/20 05:25 O2 Sat by Pulse Oximetry (%) 97 07/05/20 05:25 Constitutional: Yes: No Distress, Calm Cardiovascular: Yes: S1, S2 Gastrointestinal: Yes: Normal Bowel Sounds, Soft Musculoskeletal: Yes: WNL Extremities: Yes: Other Neurological: Yes: Alert, Oriented Psychiatric: Yes: Alert, Oriented Labs: CBC, BMP 07/05/20 06:40 07/05/20 06:40 Assessment/Plan Problem List - Problems (1) Cellulitis Code(s): L03.90 - CELLULITIS, UNSPECIFIED (2) Diabetes Code(s): E11.9 - TYPE 2 DIABETES MELLITUS WITHOUT COMPLICATIONS (3) CHF (congestive heart failure) Code(s): I50.9 - HEART FAILURE, UNSPECIFIED (4) Diabetic neuropathy Code(s): E11.40 - TYPE 2 DIABETES MELLITUS WITH DIABETIC NEUROPATHY, UNSP (5) ESRF (end stage renal failure) Code(s): N18.6 - END STAGE RENAL DISEASE (6) Hx of CABG Code(s): Z95.1 - PRESENCE OF AORTOCORONARY BYPASS GRAFT (7) PAD (peripheral artery disease) Code(s): I73.9 - PERIPHERAL VASCULAR DISEASE, UNSPECIFIED (8) CAD (coronary artery disease) Code(s): I25.10 - ATHSCL HEART DISEASE OF [place] CORONARY ARTERY W/O ANG PCTRS Qualifiers: Coronary Disease-Associated Artery/Lesion type: [place] artery [place] vs. transplanted heart: [place] heart Associated angina: without angina Qualified Code(s): I25.10 - Atherosclerotic heart disease of [place] coronary artery without angina pectoris (9) Hyperlipidemia Code(s): E78.5 - HYPERLIPIDEMIA, UNSPECIFIED Qualifiers: Hyperlipidemia type: pure hypercholesterolemia Qualified Code(s): E78.00 - Pure hypercholesterolemia, unspecified; E78.0 - Pure hypercholesterolemia (10) Hypertension Code(s): I10 - ESSENTIAL (PRIMARY) HYPERTENSION Qualifiers: Hypertension type: essential hypertension Qualified Code(s): I10 - Essential (primary) hypertension (11) PVD (peripheral vascular disease) Code(s): I73.9 - PERIPHERAL VASCULAR DISEASE, UNSPECIFIED Assessment/Plan LLE cellulitis/foot abscess - s/p drainage Diabetic foot ulcer Fever Leukocytosis Neuropathy PVD CAD s/p CABG CKD continue current mgmt wound care rest as per the team
--- NOTE | 2020-07-05 14:27 | PN ---
Progress Note, Physician History of Present Illness: STABLE - Current Medication List Current Medications: Active Medications Acetaminophen (Tylenol -) 650 mg PO Q4H PRN PRN Reason: FEVER Last Admin: 06/30/20 21:52 Dose: 650 mg Documented by: Albuterol/Ipratropium (Duoneb -) 1 amp NEB Q6H PRN PRN Reason: WHEEZING Last Admin: 07/04/20 20:25 Dose: 1 amp Documented by: Amlodipine Besylate (Norvasc -) 5 mg PO DAILY [facility] Last Admin: 07/05/20 09:10 Dose: 5 mg Documented by: Apixaban (Eliquis -) 2.5 mg PO BID [facility] Last Admin: 07/05/20 09:10 Dose: 2.5 mg Documented by: Aspirin (Ecotrin -) 81 mg PO DAILY [facility] Last Admin: 07/05/20 09:10 Dose: 81 mg Documented by: Doxycycline Hyclate (Vibramycin -) 100 mg PO BID@1000,1800 [facility] Last Admin: 07/05/20 09:10 Dose: 100 mg Documented by: Duloxetine HCl (Cymbalta -) 40 mg PO DAILY [facility] Last Admin: 07/05/20 09:10 Dose: 40 mg Documented by: Gabapentin (Neurontin -) 100 mg PO BID [facility] Last Admin: 07/05/20 09:11 Dose: 100 mg Documented by: Guaifenesin (Robitussin -) 5 ml PO Q8H PRN PRN Reason: COUGH Last Admin: 07/05/20 03:28 Dose: 5 ml Documented by: Piperacillin Sod/Tazobactam (Sod 2.25 gm/ Dextrose) 50 mls @ 100 mls/hr IVPB Q8H-IV [facility]; Protocol Last Admin: 07/05/20 09:10 Dose: 100 mls/hr Documented by: Insulin Aspart (Novolog Vial Sliding Scale -) 1 vial SQ ACHS [facility]; Protocol Last Admin: 07/05/20 11:13 Dose: 4 units Documented by: Insulin Detemir (Levemir Vial) 30 units SQ HS [facility] Last Admin: 07/04/20 21:27 Dose: 30 unit Documented by: Metoprolol Succinate (Toprol Xl -) 25 mg PO DAILY [facility] Last Admin: 07/05/20 09:10 Dose: 25 mg Documented by: Pantoprazole Sodium (Protonix -) 20 mg PO DAILY [facility] Last Admin: 07/05/20 09:10 Dose: 20 mg Documented by: Sevelamer Carbonate (Renvela -) 800 mg PO TIDCM [facility] Last Admin: 07/05/20 13:00 Dose: 800 mg Documented by: Sodium Bicarbonate (Sodium Bicarbonate -) 650 mg PO BID [facility] Last Admin: 07/05/20 09:11 Dose: 650 mg Documented by: Zolpidem Tartrate (Ambien -) 5 mg PO HS PRN PRN Reason: INSOMNIA Last Admin: 07/04/20 21:26 Dose: 5 mg Documented by: - Objective Vital Signs: Vital Signs Temperature 97.8 F 07/05/20 13:00 Pulse Rate 67 07/05/20 13:00 Respiratory Rate 07/05/20 13:00 Blood Pressure 140/61 07/05/20 13:00 O2 Sat by Pulse Oximetry (%) 92 L 07/05/20 13:00 Constitutional: Yes: No Distress HENT: Yes: Atraumatic Neck: Yes: Supple Cardiovascular: Yes: Regular Rate and Rhythm Respiratory: Yes: CTA Bilaterally Gastrointestinal: Yes: Normal Bowel Sounds Extremities: Yes: Other (llex cellulitis) Edema: Yes Edema: LLE: Trace, RLE: Trace Neurological: Yes: Alert, Oriented Labs: CBC, BMP 07/05/20 06:40 07/05/20 06:40 Problem List - Problems (1) Cellulitis Assessment/Plan: iv abx improving Code(s): L03.90 - CELLULITIS, UNSPECIFIED (2) Diabetes Assessment/Plan: on insulin bgms Code(s): E11.9 - TYPE 2 DIABETES MELLITUS WITHOUT COMPLICATIONS (3) ARF (acute renal failure) Assessment/Plan: monitor renal on board FOR PERMACATH IN AM FOR HD Code(s): N17.9 - ACUTE KIDNEY FAILURE, UNSPECIFIED (4) Hx of CABG Code(s): Z95.1 - PRESENCE OF AORTOCORONARY BYPASS GRAFT (5) PAD (peripheral artery disease) Code(s): I73.9 - PERIPHERAL VASCULAR DISEASE, UNSPECIFIED (6) Hypertension Assessment/Plan: on meds monitor Code(s): I10 - ESSENTIAL (PRIMARY) HYPERTENSION Qualifiers: Hypertension type: essential hypertension Qualified Code(s): I10 - Essential (primary) hypertension (7) Atrial fibrillation Assessment/Plan: on meds Code(s): I48.91 - UNSPECIFIED ATRIAL FIBRILLATION (8) Hyperlipidemia Code(s): E78.5 - HYPERLIPIDEMIA, UNSPECIFIED Qualifiers: Hyperlipidemia type: pure hypercholesterolemia Qualified Code(s): E78.00 - Pure hypercholesterolemia, unspecified; E78.0 - Pure hypercholesterolemia Assessment/Plan COVERING FOR DR GALEAS TODAY
[2020-07-05] MEDS ORDERED: SODIUM CHLORIDE 250 ML IV PRN (16:19)
[2020-07-05] MEDS: ALBUTEROL SO4 2.5/IPRATROPIUM 0.5 INH SOL 3 ML VIAL.NEB. NEB PRN (19:04)
--- NOTE | 2020-07-05 20:07 | PN ---
Progress Note, Physician Chief Complaint: Weakness History of Present Illness: Seen and examined at the bedside awake and alert denies any shortness of breath or chest pain no abdominal discomfort making urine - Current Medication List Current Medications: Active Medications Acetaminophen (Tylenol -) 650 mg PO Q4H PRN PRN Reason: FEVER Last Admin: 06/30/20 21:52 Dose: 650 mg Documented by: Albuterol/Ipratropium (Duoneb -) 1 amp NEB Q6H PRN PRN Reason: WHEEZING Last Admin: 07/05/20 19:04 Dose: 1 amp Documented by: Amlodipine Besylate (Norvasc -) 5 mg PO DAILY [facility] Last Admin: 07/05/20 09:10 Dose: 5 mg Documented by: Apixaban (Eliquis -) 2.5 mg PO BID [facility] Last Admin: 07/05/20 09:10 Dose: 2.5 mg Documented by: Aspirin (Ecotrin -) 81 mg PO DAILY [facility] Last Admin: 07/05/20 09:10 Dose: 81 mg Documented by: Doxycycline Hyclate (Vibramycin -) 100 mg PO BID@1000,1800 [facility] Last Admin: 07/05/20 17:28 Dose: 100 mg Documented by: Duloxetine HCl (Cymbalta -) 40 mg PO DAILY [facility] Last Admin: 07/05/20 09:10 Dose: 40 mg Documented by: Gabapentin (Neurontin -) 100 mg PO BID [facility] Last Admin: 07/05/20 09:11 Dose: 100 mg Documented by: Guaifenesin (Robitussin -) 5 ml PO Q8H PRN PRN Reason: COUGH Last Admin: 07/05/20 17:28 Dose: 5 ml Documented by: Piperacillin Sod/Tazobactam (Sod 2.25 gm/ Dextrose) 50 mls @ 100 mls/hr IVPB Q8H-IV [facility]; Protocol Last Admin: 07/05/20 17:29 Dose: 100 mls/hr Documented by: Insulin Aspart (Novolog Vial Sliding Scale -) 1 vial SQ [facility]; Protocol Last Admin: 07/05/20 17:27 Dose: 4 units Documented by: Insulin Detemir (Levemir Vial) 30 units SQ HS [facility] Last Admin: 07/04/20 21:27 Dose: 30 unit Documented by: Metoprolol Succinate (Toprol Xl -) 25 mg PO DAILY [facility] Last Admin: 07/05/20 09:10 Dose: 25 mg Documented by: Pantoprazole Sodium (Protonix -) 20 mg PO DAILY [facility] Last Admin: 07/05/20 09:10 Dose: 20 mg Documented by: Sevelamer Carbonate (Renvela -) 800 mg PO TIDCM [facility] Last Admin: 07/05/20 17:28 Dose: 800 mg Documented by: Sodium Bicarbonate (Sodium Bicarbonate -) 650 mg PO BID [facility] Last Admin: 07/05/20 09:11 Dose: 650 mg Documented by: Zolpidem Tartrate (Ambien -) 5 mg PO HS PRN PRN Reason: INSOMNIA Last Admin: 07/04/20 21:26 Dose: 5 mg Documented by: - Objective Vital Signs: Vital Signs Temperature 98.5 F 07/05/20 18:10 Pulse Rate 65 07/05/20 18:10 Respiratory Rate 18 07/05/20 18:10 Blood Pressure 150/66 07/05/20 18:10 O2 Sat by Pulse Oximetry (%) 95 07/05/20 18:10 Constitutional: Yes: No Distress, Calm Eyes: Yes: Conjunctiva Clear HENT: Yes: Atraumatic Neck: Yes: Supple Cardiovascular: Yes: Regular Rate and Rhythm Respiratory: Yes: Regular, CTA Bilaterally, Diminished Gastrointestinal: Yes: Soft, Abdomen, Obese. No: Tenderness Extremities: Yes: Erythema Edema: Yes Edema: LLE: 1+ Neurological: Yes: Alert Labs: CBC, BMP 07/05/20 06:40 07/05/20 06:40 Assessment/Plan 70 year old male with history of CKD stage 4/5, IDDM, hypertension, hyperlipidemia, BOBY, CHF, Aflutter, PVD who presented from home with a fall and generalized weakness and noted to have left lower extremity cellulitis with leukocytosis/WBC of 20k and Cr of 4.5. 1. Lower extremity cellulitis r/o osteomylitis 2. CKD stage 4/5 3. Anemia 4. Hx of CHF w/o evidence of acute exacerbation 5. Hypertension 6. Hyperlipidemia Renal function remains poor, eGFR ~8 Appears euvolemic on examination No overt electrolyte or acid/base disturbances To have tunneled dialysis catheter placed tomorrow and will start dialysis. Discussed risks and benefits of dialysis at length with the patient and he expressed understanding and a willingness to start dialysis. Continue antibiotics for LE cellulitis Imaging studies showed no abcess or collection f/u final cultures Renal diet No JEWEL/ARB given low eGFR Thank you Jonah Painting DO
--- NOTE | 2020-07-05 20:57 | CONS ---
DATE OF CONSULTATION: 07/05/2020 PULMONARY CONSULTATION REFERRING PHYSICIAN: Isa Avila M.D. HISTORY OF PRESENT ILLNESS: The patient is a 70-year-old male known to me from previous hospitalization and past medical history end-stage renal disease, insulin dependent diabetes mellitus, hypertension, hyperlipidemia, obstructive sleep apnea, CHF, atrial flutter, PVD, admitted to [facility] secondary to fall, and generalized weakness. Patient is also known to have left lower extremity cellulitis with leukocytosis on admission with white count of 20,000. Patient states he sat on the sofa and slid off and could not get up. His apparently was unable to lift him up. Patient attended hypobaric therapy for his left lower extremity ulcer. On admission he was noted to have increasing worsening renal failure. He was also evaluated by vascular surgery. Patient was placed on broad-spectrum antibiotics per infectious disease. Patient has history of smoking, quit many years ago. There is no history of occupational exposure to chemicals or fumes. He denies any significant shortness of breath, dyspnea on exertion, PND, or orthopnea. Over the past couple of days he has been complaining of cough which is dry and nonproductive. He denies any wheezing associated with it but states he was started on bronchodilators which offered some improvement. Patient underwent a CT scan of the chest on July 03 which revealed evidence of bilateral pleural effusion, scattered bilateral emphysematous changes and moderate sized left pleural effusion with compressive atelectasis. Of note is the patient was hospitalized in May secondary to congestive heart failure. Patient scheduled to undergo PermCath placement in a.m. PAST MEDICAL HISTORY: Again includes end-stage renal disease, obstructive sleep apnea, hypertension, hyperlipidemia, insulin dependent diabetes mellitus, atrial flutter status post ablation currently on Eliquis, ASHD status post CABG, history of TIAs x2, PAD status post left lower extremity stent. PAST SURGICAL HISTORY: Includes bariatric surgery and quadruple bypass. SOCIAL HISTORY: History of tobacco use, quit greater than 25 years ago. 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 MEDICATION: Include: 1. Sodium bicarbonate. 2. Tylenol. 3. Vibramycin. 4. Piperacillin. 5. Eliquis. 6. Neurontin. 7. Cymbalta. 8. Amlodipine. 9. Ambien. 10. DuoNeb. 11. Toprol. 12. Norvasc. 13. Robitussin. 14. NovoLog. 15. Levemir. 16. Ecotrin. 17. Renvela. PHYSICAL EXAMINATION: General: The patient is a well-developed, well-nourished male awake, alert, in no acute distress. He is afebrile. Vital Signs: Blood pressure 150/66, respiratory rate 18, O2 saturation is 95%. HEENT: Normocephalic, atraumatic. Neck: Supple. Heart: Regular S1, S2. Chest: Diminished breath sounds in the left base . LABORATORY: WBC is 11, hemoglobin 7.2, hematocrit 22.9 with a platelet count of 393,000. BUN 79, creatinine 6.0. Chest CT again moderate sized left pleural effusion, compressive atelectasis, small right pleural effusion, evidence of mediastinal adenopathy. Scattered bilateral emphysematous changes. Mediastinum reveals numerous prominent lymph nodes. IMPRESSION: 1. Cough possibly secondary to left pleural effusion, congestive heart failure, rule out infectious, questionable congestive heart failure, although this patient does not appear in heart failure with acute cardiac decompensation. 2. Mediastinal adenopathy, likely reactive. 3. Diastolic heart failure. 4. Left lower extremity cellulitis. 5. Arteriosclerotic heart disease status post coronary artery bypass graft. 6. History of atrial fibrillation, atrial flutter status post ablation. 7. Chronic kidney disease. 8. PAD. 9. Diabetes. 10. Hypertension. 11. Anemia. 12. History of transient ischemic attack. PLAN: Inhaled bronchodilators, antibiotics as per infectious disease, continue antitussives, followup chest x-rays if no improvement in pleural effusion, scheduled for diagnostic thoracentesis, continue anticoagulation, monitor electrolytes, renal function, hemoglobin and hematocrit, monitor urine output as well as hemodialysis as per renal. MAXIMILIAN ELIAS M.D. DARIA/[id number]
[2020-07-05] MEDS ORDERED: ZOLPIDEM TARTRATE 5 MG TABLET PO PRN (21:23)
[2020-07-05] MEDS ORDERED: INSULIN (NOVOLOG) ASPART 100 UNITS/ML 10ML VIAL ONE (21:52)
[2020-07-05] MEDS: INSULIN (LEVEMIR) 100 UNITS/ML UNITS SQ SCH (21:56)
[2020-07-06] MEDS ORDERED: PIPERACILLIN/TAZOBACTAM 2.25 GM VIAL IVPB ONE ×2 (01:10→09:50)
[2020-07-06] MEDS ORDERED: DEXTROSE 5%-WATER - 50 ML IVPB ONE ×2 (01:11→09:50)
[2020-07-06] MEDS: PIPERACILLIN/TAZOB 2.25 GM 2.25 GM in DEXTROSE 5%-WATER - 50 ML IVPB SCH ×3 (01:23→18:30)
[2020-07-06] MEDS: INSULIN SLIDING SCALE (NOVOLOG) 1 VIAL SQ SCH ×4 (06:12→21:35)
[2020-07-06 08:12] LABS: BASO % 0.6 % (0-2.0); EOS % 2.8 % (0-4.5); HEMOGLOBIN 8.3 GM/dL (11.7-16.9); LYMPH % 9.1 % (8-40); MCH 26.2 pg (25.7-33.7); MEAN CELL VOLUME 81.7 fl (80-96); MEAN PLT VOLUME 8.2 fl (7.5-11.1); MONO % 7.1 % (3.8-10.2); NEUT % 80.4 % (42.8-82.8); PLATELET COUNT 355 K/MM3 (134-434); RBC 3.18 M/mm3 (4.00-5.60); RDW 15.4 % (11.9-15.9); WHITE BLOOD COUNT 9.6 K/mm3 (4.0-10.0)
[2020-07-06] MEDS ORDERED: HEPARIN NA (PORCINE) 5,000 UNITS/ML 1ML VIAL ONE (10:38)
[2020-07-06] MEDS ORDERED: LIDOCAINE HCL 1%, 10 MG/ML (20ML VIAL) ONE ×2 (10:38→11:16)
--- NOTE | 2020-07-06 10:46 | PN ---
Progress Note, Physician History of Present Illness: pulmonary alert,comfortable,-sob,less cough - Current Medication List Current Medications: Active Medications Acetaminophen (Tylenol -) 650 mg PO Q4H PRN PRN Reason: FEVER Last Admin: 06/30/20 21:52 Dose: 650 mg Documented by: Albuterol/Ipratropium (Duoneb -) 1 amp NEB Q6H PRN PRN Reason: WHEEZING Last Admin: 07/05/20 19:04 Dose: 1 amp Documented by: Amlodipine Besylate (Norvasc -) 5 mg PO DAILY [facility] Last Admin: 07/05/20 09:10 Dose: 5 mg Documented by: Apixaban (Eliquis -) 2.5 mg PO BID [facility] Last Admin: 07/05/20 21:55 Dose: 2.5 mg Documented by: Aspirin (Ecotrin -) 81 mg PO DAILY [facility] Last Admin: 07/05/20 09:10 Dose: 81 mg Documented by: Doxycycline Hyclate (Vibramycin -) 100 mg PO BID@1000,1800 [facility] Last Admin: 07/05/20 17:28 Dose: 100 mg Documented by: Duloxetine HCl (Cymbalta -) 40 mg PO DAILY [facility] Last Admin: 07/05/20 09:10 Dose: 40 mg Documented by: Epoetin Errol (Procrit -) 20,000 unit IVPUSH ONCE ONE Stop: 07/06/20 10:01 Gabapentin (Neurontin -) 100 mg PO BID [facility] Last Admin: 07/05/20 21:55 Dose: 100 mg Documented by: Guaifenesin (Robitussin -) 5 ml PO Q8H PRN PRN Reason: COUGH Last Admin: 07/05/20 17:28 Dose: 5 ml Documented by: Piperacillin Sod/Tazobactam (Sod 2.25 gm/ Dextrose) 50 mls @ 100 mls/hr IVPB Q8H-IV [facility]; Protocol Last Admin: 07/06/20 01:23 Dose: 100 mls/hr Documented by: Sodium Chloride (Normal Saline -) 250 mls @ 3,000 mls/hr IV PRN PRN PRN Reason: Hypotension during Dialysis Stop: 07/06/20 20:07 Insulin Aspart (Novolog Vial Sliding Scale -) 1 vial SQ ACHS [facility]; Protocol Last Admin: 07/06/20 06:12 Dose: Not Given Documented by: Insulin Detemir (Levemir Vial) 30 units SQ HS [facility] Last Admin: 07/05/20 21:56 Dose: 30 unit Documented by: Metoprolol Succinate (Toprol Xl -) 25 mg PO DAILY [facility] Last Admin: 07/05/20 09:10 Dose: 25 mg Documented by: Pantoprazole Sodium (Protonix -) 20 mg PO DAILY [facility] Last Admin: 07/05/20 09:10 Dose: 20 mg Documented by: Sevelamer Carbonate (Renvela -) 800 mg PO TIDCM [facility] Last Admin: 07/05/20 17:28 Dose: 800 mg Documented by: Sodium Bicarbonate (Sodium Bicarbonate -) 650 mg PO BID [facility] Last Admin: 07/05/20 21:55 Dose: 650 mg Documented by: Zolpidem Tartrate (Ambien -) 5 mg PO PRN PRN Reason: INSOMNIA Last Admin: 07/05/20 21:55 Dose: 5 mg Documented by: - Objective Vital Signs: Vital Signs Temperature 98.1 F 07/06/20 06:00 Pulse Rate 65 07/06/20 06:00 Respiratory Rate 18 07/06/20 06:00 Blood Pressure 154/65 07/06/20 06:00 O2 Sat by Pulse Oximetry (%) 94 L 07/06/20 06:00 Constitutional: Yes: Well Nourished, Calm Eyes: Yes: WNL HENT: Yes: WNL Neck: Yes: WNL Cardiovascular: Yes: Pulse Irregular, S1, S2 Respiratory: Yes: Diminished (diminished bs left base) Gastrointestinal: Yes: Normal Bowel Sounds, Soft Extremities: Yes: WNL Labs: CBC, BMP 07/06/20 07:28 07/05/20 06:40 Problem List - Problems (1) Cellulitis Code(s): L03.90 - CELLULITIS, UNSPECIFIED (2) Cough Code(s): R05 - COUGH (3) Diabetes Code(s): E11.9 - TYPE 2 DIABETES MELLITUS WITHOUT COMPLICATIONS (4) Atrial fibrillation Code(s): I48.91 - UNSPECIFIED ATRIAL FIBRILLATION (5) CHF (congestive heart failure) Code(s): I50.9 - HEART FAILURE, UNSPECIFIED (6) Diabetic foot infection Code(s): E11.628 - TYPE 2 DIABETES MELLITUS WITH OTHER SKIN COMPLICATIONS; L08.9 - LOCAL INFECTION OF THE SKIN AND SUBCUTANEOUS TISSUE, UNSP (7) Foot ulcer Code(s): L97.509 - NON-PRESSURE CHRONIC ULCER OTH PRT UNSP FOOT W UNSP SEVERITY (8) Hx of CABG Code(s): Z95.1 - PRESENCE OF AORTOCORONARY BYPASS GRAFT (9) PAD (peripheral artery disease) Code(s): I73.9 - PERIPHERAL VASCULAR DISEASE, UNSPECIFIED (10) Hyperlipidemia Code(s): E78.5 - HYPERLIPIDEMIA, UNSPECIFIED Qualifiers: Hyperlipidemia type: pure hypercholesterolemia Qualified Code(s): E78.00 - Pure hypercholesterolemia, unspecified; E78.0 - Pure hypercholesterolemia (11) Hypertension Code(s): I10 - ESSENTIAL (PRIMARY) HYPERTENSION Qualifiers: Hypertension type: essential hypertension Qualified Code(s): I10 - Essential (primary) hypertension (12) PVD (peripheral vascular disease) Code(s): I73.9 - PERIPHERAL VASCULAR DISEASE, UNSPECIFIED Assessment/Plan IMP COUGH LEFT PLEURAL EFFUSION ?INFECTIOUS,? CHF,? MALIGNANT MEDIASTINAL ADENOPATHY LIKELY REACTIVE DIASTOLIC HF LLE CELLULITIS ASHD S/P CABG H/O AFLUTTER S/P ABLATION CKD PAD DM HTN ANEMIA H/O TIAs PLAN INHALED BRONCHODILATORS ABX PER ID ANTI-TUSSIVES THORACENTESIS F/U CHEST X-RAYS ELIQUIS MONITOR LYTES,RENAL FUNCTION,H+H MONITOR URINE OUTPUT HD PER RENAL F/U CHEST CT OUTPATIENT DR ELIAS Problem List - Problems (1) Cellulitis Code(s): L03.90 - CELLULITIS, UNSPECIFIED (2) Cough Code(s): R05 - COUGH (3) Diabetes Code(s): E11.9 - TYPE 2 DIABETES MELLITUS WITHOUT COMPLICATIONS (4) Atrial fibrillation Code(s): I48.91 - UNSPECIFIED ATRIAL FIBRILLATION (5) CHF (congestive heart failure) Code(s): I50.9 - HEART FAILURE, UNSPECIFIED (6) Diabetic foot infection Code(s): E11.628 - TYPE 2 DIABETES MELLITUS WITH OTHER SKIN COMPLICATIONS; L08.9 - LOCAL INFECTION OF THE SKIN AND SUBCUTANEOUS TISSUE, UNSP (7) Foot ulcer Code(s): L97.509 - NON-PRESSURE CHRONIC ULCER OTH PRT UNSP FOOT W UNSP SEVERITY (8) Hx of CABG Code(s): Z95.1 - PRESENCE OF AORTOCORONARY BYPASS GRAFT (9) PAD (peripheral artery disease) Code(s): I73.9 - PERIPHERAL VASCULAR DISEASE, UNSPECIFIED (10) Hyperlipidemia Code(s): E78.5 - HYPERLIPIDEMIA, UNSPECIFIED Qualifiers: Hyperlipidemia type: pure hypercholesterolemia Qualified Code(s): E78.00 - Pure hypercholesterolemia, unspecified; E78.0 - Pure hypercholesterolemia (11) Hypertension Code(s): I10 - ESSENTIAL (PRIMARY) HYPERTENSION Qualifiers: Hypertension type: essential hypertension Qualified Code(s): I10 - Essential (primary) hypertension (12) PVD (peripheral vascular disease) Code(s): I73.9 - PERIPHERAL VASCULAR DISEASE, UNSPECIFIED
[2020-07-06] MEDS: APIXABAN 2.5 MG TABLET PO SCH ×2 (11:17→21:36)
[2020-07-06] MEDS: SEVELAMER CARBONATE 800 MG TAB (FP) PO SCH ×3 (11:17→17:45)
[2020-07-06] MEDS: PANTOPRAZOLE 20 MG TABLET PO SCH (11:17)
[2020-07-06] MEDS: SODIUM BICARBONATE 650 MG TABLET PO SCH ×2 (11:17→21:36)
--- NOTE | 2020-07-06 11:17 | PN ---
Progress Note, Physician History of Present Illness: stable patient going for permacath placement - Current Medication List Current Medications: Active Medications Acetaminophen (Tylenol -) 650 mg PO Q4H PRN PRN Reason: FEVER Last Admin: 06/30/20 21:52 Dose: 650 mg Documented by: Albuterol/Ipratropium (Duoneb -) 1 amp NEB Q6H PRN PRN Reason: WHEEZING Last Admin: 07/05/20 19:04 Dose: 1 amp Documented by: Amlodipine Besylate (Norvasc -) 5 mg PO DAILY [facility] Last Admin: 07/05/20 09:10 Dose: 5 mg Documented by: Apixaban (Eliquis -) 2.5 mg PO BID [facility] Last Admin: 07/05/20 21:55 Dose: 2.5 mg Documented by: Aspirin (Ecotrin -) 81 mg PO DAILY [facility] Last Admin: 07/05/20 09:10 Dose: 81 mg Documented by: Doxycycline Hyclate (Vibramycin -) 100 mg PO BID@1000,1800 [facility] Last Admin: 07/05/20 17:28 Dose: 100 mg Documented by: Duloxetine HCl (Cymbalta -) 40 mg PO DAILY [facility] Last Admin: 07/05/20 09:10 Dose: 40 mg Documented by: Epoetin Errol (Procrit -) 20,000 unit IVPUSH ONCE ONE Stop: 07/06/20 10:01 Gabapentin (Neurontin -) 100 mg PO BID [facility] Last Admin: 07/05/20 21:55 Dose: 100 mg Documented by: Guaifenesin (Robitussin -) 5 ml PO Q8H PRN PRN Reason: COUGH Last Admin: 07/05/20 17:28 Dose: 5 ml Documented by: Piperacillin Sod/Tazobactam (Sod 2.25 gm/ Dextrose) 50 mls @ 100 mls/hr IVPB Q8H-IV [facility]; Protocol Last Admin: 07/06/20 01:23 Dose: 100 mls/hr Documented by: Sodium Chloride (Normal Saline -) 250 mls @ 3,000 mls/hr IV PRN PRN PRN Reason: Hypotension during Dialysis Stop: 07/06/20 20:07 Insulin Aspart (Novolog Vial Sliding Scale -) 1 vial SQ ACHS [facility]; Protocol Last Admin: 07/06/20 06:12 Dose: Not Given Documented by: Insulin Detemir (Levemir Vial) 30 units SQ HS [facility] Last Admin: 07/05/20 21:56 Dose: 30 unit Documented by: Metoprolol Succinate (Toprol Xl -) 25 mg PO DAILY [facility] Last Admin: 07/05/20 09:10 Dose: 25 mg Documented by: Pantoprazole Sodium (Protonix -) 20 mg PO DAILY [facility] Last Admin: 07/05/20 09:10 Dose: 20 mg Documented by: Sevelamer Carbonate (Renvela -) 800 mg PO TIDCM [facility] Last Admin: 07/05/20 17:28 Dose: 800 mg Documented by: Sodium Bicarbonate (Sodium Bicarbonate -) 650 mg PO BID [facility] Last Admin: 07/05/20 21:55 Dose: 650 mg Documented by: Zolpidem Tartrate (Ambien -) 5 mg PO HS PRN PRN Reason: INSOMNIA Last Admin: 07/05/20 21:55 Dose: 5 mg Documented by: - Objective Vital Signs: Vital Signs Temperature 98.1 F 07/06/20 06:00 Pulse Rate 65 07/06/20 06:00 Respiratory Rate 18 07/06/20 06:00 Blood Pressure 154/65 07/06/20 06:00 O2 Sat by Pulse Oximetry (%) 94 L 07/06/20 06:00 Constitutional: Yes: No Distress, Calm Cardiovascular: Yes: S1, S2 Respiratory: Yes: Regular, CTA Bilaterally Gastrointestinal: Yes: Normal Bowel Sounds, Soft Musculoskeletal: Yes: WNL Extremities: Yes: WNL Neurological: Yes: Alert, Oriented Psychiatric: Yes: Alert, Oriented Labs: CBC, BMP 07/06/20 07:28 07/05/20 06:40 Assessment/Plan Problem List - Problems (1) Cellulitis Code(s): L03.90 - CELLULITIS, UNSPECIFIED (2) Diabetes Code(s): E11.9 - TYPE 2 DIABETES MELLITUS WITHOUT COMPLICATIONS (3) CHF (congestive heart failure) Code(s): I50.9 - HEART FAILURE, UNSPECIFIED (4) Diabetic neuropathy Code(s): E11.40 - TYPE 2 DIABETES MELLITUS WITH DIABETIC NEUROPATHY, UNSP (5) ESRF (end stage renal failure) Code(s): N18.6 - END STAGE RENAL DISEASE (6) Hx of CABG Code(s): Z95.1 - PRESENCE OF AORTOCORONARY BYPASS GRAFT (7) PAD (peripheral artery disease) Code(s): I73.9 - PERIPHERAL VASCULAR DISEASE, UNSPECIFIED (8) CAD (coronary artery disease) Code(s): I25.10 - ATHSCL HEART DISEASE OF [place] CORONARY ARTERY W/O ANG PCTRS Qualifiers: Coronary Disease-Associated Artery/Lesion type: [place] artery [place] vs. transplanted heart: [place] heart Associated angina: without angina Qualified Code(s): I25.10 - Atherosclerotic heart disease of [place] coronary artery without angina pectoris (9) Hyperlipidemia Code(s): E78.5 - HYPERLIPIDEMIA, UNSPECIFIED Qualifiers: Hyperlipidemia type: pure hypercholesterolemia Qualified Code(s): E78.00 - Pure hypercholesterolemia, unspecified; E78.0 - Pure hypercholesterolemia (10) Hypertension Code(s): I10 - ESSENTIAL (PRIMARY) HYPERTENSION Qualifiers: Hypertension type: essential hypertension Qualified Code(s): I10 - Essential (primary) hypertension (11) PVD (peripheral vascular disease) Code(s): I73.9 - PERIPHERAL VASCULAR DISEASE, UNSPECIFIED Assessment/Plan LLE cellulitis/foot abscess - s/p drainage Diabetic foot ulcer Fever Leukocytosis Neuropathy PVD CAD s/p CABG CKD continue current mgmt wound care rest as per the team patient for permacath
[2020-07-06] MEDS: ASPIRIN COATED 81 MG TABLET.EC PO SCH (11:18)
[2020-07-06] MEDS: DULoxetine HCL 20 MG CAPSULE.DR PO SCH (11:18)
[2020-07-06] MEDS: GABAPENTIN 100 MG CAPSULE PO SCH ×2 (11:19→21:37)
[2020-07-06] MEDS: DOXYCYCLINE HYCLATE 100 MG CAPSULE PO SCH ×2 (11:19→17:45)
[2020-07-06] MEDS: metoPROLOL SUCCINATE 25 MG TAB.SR.24H (FP) PO SCH (11:20)
[2020-07-06] MEDS: amLODIPine BESYLATE 5 MG TABLET (FP) PO SCH (11:21)
[2020-07-06] MEDS: ALBUTEROL SO4 2.5/IPRATROPIUM 0.5 INH SOL 3 ML VIAL.NEB. NEB PRN (11:26)
[2020-07-06] MEDS ORDERED: MIDAZOLAM HCL 2 MG/2 ML SINGLE DOSE VIAL ONE ×3 (12:24→13:04)
[2020-07-06] MEDS ORDERED: PROPOFOL 20 ML ONE ×2 (13:06→13:46)
[2020-07-06] MEDS ORDERED: LIDOCAINE HCL 1%, 10 MG/ML (20ML VIAL) NR ONE (14:26)
[2020-07-06] MEDS ORDERED: HEPARIN NA (PORCINE) 5,000 UNITS/ML 1ML VIAL SQ ONE (14:30)
--- NOTE | 2020-07-06 14:43 | OP ---
Operative Note - Note: Operative Date: 07/06/20 Pre-Operative Diagnosis: ESRD Operation: Insertion of permacath Post-Operative Diagnosis: Same as Pre-op Surgeon: Matt Garcia Anesthesia: MAC Estimated Blood Loss (mls): 20 Operative Report Dictated: Yes
--- NOTE | 2020-07-06 16:28 | PN ---
Progress Note, Physician Chief Complaint: Weakness History of Present Illness: Seen and examined at the bedside awake and alert offers no acute complaints for permcath insertion and then dialysis later today no sob, cp, abd pain, fever, chills, N/V/D - Current Medication List Current Medications: Active Medications Acetaminophen (Tylenol -) 650 mg PO Q4H PRN PRN Reason: FEVER Last Admin: 06/30/20 21:52 Dose: 650 mg Documented by: Albuterol/Ipratropium (Duoneb -) 1 amp NEB Q6H PRN PRN Reason: WHEEZING Last Admin: 07/06/20 11:26 Dose: 1 amp Documented by: Amlodipine Besylate (Norvasc -) 5 mg PO DAILY [facility] Last Admin: 07/06/20 11:21 Dose: 5 mg Documented by: Apixaban (Eliquis -) 2.5 mg PO BID [facility] Last Admin: 07/06/20 11:17 Dose: Not Given Documented by: Aspirin (Ecotrin -) 81 mg PO DAILY [facility] Last Admin: 07/06/20 11:18 Dose: Not Given Documented by: Doxycycline Hyclate (Vibramycin -) 100 mg PO BID@1000,1800 [facility] Last Admin: 07/06/20 11:19 Dose: 100 mg Documented by: Duloxetine HCl (Cymbalta -) 40 mg PO DAILY [facility] Last Admin: 07/06/20 11:18 Dose: Not Given Documented by: Epoetin Errol (Procrit -) 20,000 unit IVPUSH ONCE ONE Stop: 07/06/20 16:31 Gabapentin (Neurontin -) 100 mg PO BID [facility] Last Admin: 07/06/20 11:19 Dose: 100 mg Documented by: Guaifenesin (Robitussin -) 5 ml PO Q8H PRN PRN Reason: COUGH Last Admin: 07/05/20 17:28 Dose: 5 ml Documented by: Piperacillin Sod/Tazobactam (Sod 2.25 gm/ Dextrose) 50 mls @ 100 mls/hr IVPB Q8H-IV [facility]; Protocol Last Admin: 07/06/20 11:21 Dose: 100 mls/hr Documented by: Insulin Aspart (Novolog Vial Sliding Scale -) 1 vial SQ ACHS [facility]; Protocol Last Admin: 07/06/20 11:49 Dose: Not Given Documented by: Insulin Detemir (Levemir Vial) 30 units SQ HS [facility] Last Admin: 07/05/20 21:56 Dose: 30 unit Documented by: Metoprolol Succinate (Toprol Xl -) 25 mg PO DAILY [facility] Last Admin: 07/06/20 11:20 Dose: 25 mg Documented by: Pantoprazole Sodium (Protonix -) 20 mg PO DAILY [facility] Last Admin: 07/06/20 11:17 Dose: Not Given Documented by: Sevelamer Carbonate (Renvela -) 800 mg PO TIDCM [facility] Last Admin: 07/06/20 11:49 Dose: Not Given Documented by: Sodium Bicarbonate (Sodium Bicarbonate -) 650 mg PO BID [facility] Last Admin: 07/06/20 11:17 Dose: Not Given Documented by: Zolpidem Tartrate (Ambien -) 5 mg PO HS PRN PRN Reason: INSOMNIA Last Admin: 07/05/20 21:55 Dose: 5 mg Documented by: - Objective Vital Signs: Vital Signs Temperature 97.8 F 07/06/20 15:52 Pulse Rate 64 07/06/20 15:52 Respiratory Rate 18 07/06/20 15:52 Blood Pressure 144/60 07/06/20 15:40 O2 Sat by Pulse Oximetry (%) 100 07/06/20 15:52 Constitutional: Yes: No Distress, Calm HENT: Yes: Atraumatic Neck: Yes: Supple Cardiovascular: Yes: Regular Rate and Rhythm Respiratory: Yes: Regular, CTA Bilaterally Gastrointestinal: Yes: Soft. No: Tenderness Extremities: No: Cyanosis Edema: Yes Edema: LLE: 1+ Neurological: Yes: Alert, Oriented Labs: CBC, BMP 07/06/20 07:28 07/05/20 06:40 Assessment/Plan 70 year old male with history of CKD stage 4/5, IDDM, hypertension, hyperlipidemia, BOBY, CHF, Aflutter, PVD who presented from home with a fall and generalized weakness and noted to have left lower extremity cellulitis with leukocytosis/WBC of 20k and Cr of 4.5. 1. Lower extremity cellulitis/ non-healing wound. 2. CKD stage 5 now ESRD on HD 3. Anemia 4. Hx of CHF w/o evidence of acute exacerbation 5. Hypertension 6. Hyperlipidemia For tunneled HD catheter insertion and then frist dialysis today no planned UF on first dialysis treatment. Discussed risks and benefits of dialysis at length with the patient and he expressed understanding and a willingness to start dialysis. Continue antibiotics for LE cellulitis may need antibiotics on discharge depending on extent of soft tissue wound. Imaging studies showed no abcess or collection Renal diet will need outpatient dialysis placement, social work job titles aware. Thank you Jonah Painting DO
[2020-07-06] MEDS ORDERED: SODIUM CHLORIDE 250 ML IV PRN (16:29)
[2020-07-06] MEDS ORDERED: EPOETIN ALFA 20,000 UNIT/1 ML VIAL IVPUSH ONE ×2 (16:30→19:30)
[2020-07-06] MEDS ORDERED: ALBUTEROL SO4 2.5/IPRATROPIUM 0.5 INH SOL 3 ML VIAL.NEB. NEB PRN (16:44)
[2020-07-06] MEDS ORDERED: guaiFENesin 200 MG/10 ML 10 ML UNIT-DOSE CUPS PO PRN (16:44)
[2020-07-06] MEDS ORDERED: ACETAMINOPHEN 325 MG TABLET (FP) PO PRN (16:44)
[2020-07-06 18:58] LABS: HEMOGLOBIN 7.9 GM/dL (11.7-16.9); MCHC 31.4 g/dl (32.0-35.9); MEAN CELL VOLUME 82.7 fl (80-96); MEAN PLT VOLUME 8.3 fl (7.5-11.1); PLATELET COUNT 373 K/MM3 (134-434); RBC 3.03 M/mm3 (4.00-5.60); RDW 15.2 % (11.9-15.9); WHITE BLOOD COUNT 9.6 K/mm3 (4.0-10.0)
[2020-07-06 19:32] LABS: BLOOD UREA NITROGEN 78.6 mg/dL (7-18); CALCIUM 7.7 mg/dL (8.5-10.1); CREATININE 5.9 mg/dL (0.55-1.3); PHOSPHOROUS 7.4 mg/dL (2.5-4.9); POTASSIUM 4.5 mmol/L (3.5-5.1)
--- NOTE | 2020-07-06 20:51 | PN ---
Progress Note, Physician - Current Medication List Current Medications: Active Medications Acetaminophen (Tylenol -) 650 mg PO Q4H PRN PRN Reason: FEVER Albuterol/Ipratropium (Duoneb -) 1 amp NEB Q6H PRN PRN Reason: WHEEZING Amlodipine Besylate (Norvasc -) 5 mg PO DAILY [facility] Apixaban (Eliquis -) 2.5 mg PO BID [facility] Aspirin (Ecotrin -) 81 mg PO DAILY [facility] Doxycycline Hyclate (Vibramycin -) 100 mg PO BID@1000,1800 [facility] Last Admin: 07/06/20 17:45 Dose: Not Given Documented by: Duloxetine HCl (Cymbalta -) 40 mg PO DAILY [facility] Gabapentin (Neurontin -) 100 mg PO BID [facility] Guaifenesin (Robitussin -) 5 ml PO Q8H PRN PRN Reason: COUGH Sodium Chloride (Normal Saline -) 250 mls @ 3,000 mls/hr IV PRN PRN PRN Reason: Hypotension during Dialysis Stop: 07/07/20 16:29 Piperacillin Sod/Tazobactam (Sod 2.25 gm/ Dextrose) 50 mls @ 100 mls/hr IVPB Q8H-IV [facility]; Protocol Last Admin: 07/06/20 18:30 Dose: Not Given Documented by: Insulin Aspart (Novolog Vial Sliding Scale -) 1 vial SQ ACHS [facility]; Protocol Insulin Detemir (Levemir Vial) 30 units SQ HS [facility] Metoprolol Succinate (Toprol Xl -) 25 mg PO DAILY [facility] Pantoprazole Sodium (Protonix -) 20 mg PO DAILY [facility] Sevelamer Carbonate (Renvela -) 800 mg PO TIDCM [facility] Last Admin: 07/06/20 17:45 Dose: Not Given Documented by: Sodium Bicarbonate (Sodium Bicarbonate -) 650 mg PO BID [facility] Zolpidem Tartrate (Ambien -) 5 mg PO HS PRN PRN Reason: INSOMNIA - Objective Vital Signs: Vital Signs Temperature 98.4 F 07/06/20 19:50 Pulse Rate 68 07/06/20 19:55 Respiratory Rate 20 07/06/20 19:55 Blood Pressure 155/73 07/06/20 19:55 O2 Sat by Pulse Oximetry (%) 96 07/06/20 16:00 Labs: CBC, BMP 07/06/20 17:50 07/06/20 17:50 Problem List - Problems (1) Cellulitis Code(s): L03.90 - CELLULITIS, UNSPECIFIED (2) Cough Code(s): R05 - COUGH (3) ESRF (end stage renal failure) Code(s): N18.6 - END STAGE RENAL DISEASE (4) Hypertension Code(s): I10 - ESSENTIAL (PRIMARY) HYPERTENSION Qualifiers: Hypertension type: essential hypertension Qualified Code(s): I10 - Essential (primary) hypertension (5) Diabetes Code(s): E11.9 - TYPE 2 DIABETES MELLITUS WITHOUT COMPLICATIONS (6) CHF (congestive heart failure) Code(s): I50.9 - HEART FAILURE, UNSPECIFIED (7) Diabetic neuropathy Code(s): E11.40 - TYPE 2 DIABETES MELLITUS WITH DIABETIC NEUROPATHY, UNSP (8) Hx of CABG Code(s): Z95.1 - PRESENCE OF AORTOCORONARY BYPASS GRAFT (9) CAD (coronary artery disease) Code(s): I25.10 - ATHSCL HEART DISEASE OF [place] CORONARY ARTERY W/O ANG PCTRS Qualifiers: Coronary Disease-Associated Artery/Lesion type: [place] artery [place] vs. transplanted heart: [place] heart Associated angina: without angina Qualified Code(s): I25.10 - Atherosclerotic heart disease of [place] coronary artery without angina pectoris (10) Hyperlipidemia Code(s): E78.5 - HYPERLIPIDEMIA, UNSPECIFIED Qualifiers: Hyperlipidemia type: pure hypercholesterolemia Qualified Code(s): E78.00 - Pure hypercholesterolemia, unspecified; E78.0 - Pure hypercholesterolemia (11) PVD (peripheral vascular disease) Code(s): I73.9 - PERIPHERAL VASCULAR DISEASE, UNSPECIFIED
[2020-07-06] MEDS: INSULIN (LEVEMIR) 100 UNITS/ML UNITS SQ SCH (21:34)
[2020-07-06] MEDS: ZOLPIDEM TARTRATE 5 MG TABLET PO PRN (21:37)
[2020-07-07] MEDS ORDERED: PIPERACILLIN/TAZOBACTAM 2.25 GM VIAL IVPB ONE ×3 (01:55→17:15)
[2020-07-07] MEDS ORDERED: DEXTROSE 5%-WATER - 50 ML IVPB ONE ×3 (01:56→17:15)
[2020-07-07] MEDS: PIPERACILLIN/TAZOB 2.25 GM 2.25 GM in DEXTROSE 5%-WATER - 50 ML IVPB SCH ×3 (01:57→17:31)
[2020-07-07] MEDS: INSULIN SLIDING SCALE (NOVOLOG) 1 VIAL SQ SCH ×4 (06:21→22:11)
--- NOTE | 2020-07-07 08:07 | PN ---
Progress Note, Physician History of Present Illness: PULMONARY ALERT,COMFORTABLE,-RESP DISTRESS,LESS COUGH - Current Medication List Current Medications: Active Medications Acetaminophen (Tylenol -) 650 mg PO Q4H PRN PRN Reason: FEVER Albuterol/Ipratropium (Duoneb -) 1 amp NEB Q6H PRN PRN Reason: WHEEZING Amlodipine Besylate (Norvasc -) 5 mg PO DAILY [facility] Apixaban (Eliquis -) 2.5 mg PO BID [facility] Last Admin: 07/06/20 21:36 Dose: 2.5 mg Documented by: Aspirin (Ecotrin -) 81 mg PO DAILY [facility] Doxycycline Hyclate (Vibramycin -) 100 mg PO BID@1000,1800 [facility] Last Admin: 07/06/20 17:45 Dose: Not Given Documented by: Duloxetine HCl (Cymbalta -) 40 mg PO DAILY [facility] Gabapentin (Neurontin -) 100 mg PO BID [facility] Last Admin: 07/06/20 21:37 Dose: 100 mg Documented by: Guaifenesin (Robitussin -) 5 ml PO Q8H PRN PRN Reason: COUGH Sodium Chloride (Normal Saline -) 250 mls @ 3,000 mls/hr IV PRN PRN PRN Reason: Hypotension during Dialysis Stop: 07/07/20 16:29 Piperacillin Sod/Tazobactam (Sod 2.25 gm/ Dextrose) 50 mls @ 100 mls/hr IVPB Q8H-IV [facility]; Protocol Last Admin: 07/07/20 01:57 Dose: 100 mls/hr Documented by: Insulin Aspart (Novolog Vial Sliding Scale -) 1 vial SQ ACHS [facility]; Protocol Last Admin: 07/07/20 06:21 Dose: Not Given Documented by: Insulin Detemir (Levemir Vial) 30 units SQ HS [facility] Last Admin: 07/06/20 21:34 Dose: 30 units Documented by: Metoprolol Succinate (Toprol Xl -) 25 mg PO DAILY [facility] Pantoprazole Sodium (Protonix -) 20 mg PO DAILY [facility] Sevelamer Carbonate (Renvela -) 800 mg PO TIDCM [facility] Last Admin: 07/06/20 17:45 Dose: Not Given Documented by: Sodium Bicarbonate (Sodium Bicarbonate -) 650 mg PO BID [facility] Last Admin: 07/06/20 21:36 Dose: 650 mg Documented by: Zolpidem Tartrate (Ambien -) 5 mg PO HS PRN PRN Reason: INSOMNIA Last Admin: 07/06/20 21:37 Dose: 5 mg Documented by: - Objective Vital Signs: Vital Signs Temperature 99.1 F 07/07/20 06:00 Pulse Rate 74 07/07/20 06:00 Respiratory Rate 18 07/07/20 06:00 Blood Pressure 148/65 07/07/20 06:00 O2 Sat by Pulse Oximetry (%) 93 L 07/07/20 06:00 Constitutional: Yes: Well Nourished, Calm Eyes: Yes: WNL HENT: Yes: WNL Neck: Yes: WNL Cardiovascular: Yes: Regular Rate and Rhythm, S1, S2 Respiratory: Yes: CTA Bilaterally Gastrointestinal: Yes: Normal Bowel Sounds, Soft Extremities: Yes: WNL Edema: No Labs: CBC, BMP 07/06/20 17:50 Problem List - Problems (1) Cellulitis Code(s): L03.90 - CELLULITIS, UNSPECIFIED (2) Cough Code(s): R05 - COUGH (3) Diabetes Code(s): E11.9 - TYPE 2 DIABETES MELLITUS WITHOUT COMPLICATIONS (4) Atrial fibrillation Code(s): I48.91 - UNSPECIFIED ATRIAL FIBRILLATION (5) CHF (congestive heart failure) Code(s): I50.9 - HEART FAILURE, UNSPECIFIED (6) Diabetic foot infection Code(s): E11.628 - TYPE 2 DIABETES MELLITUS WITH OTHER SKIN COMPLICATIONS; L08.9 - LOCAL INFECTION OF THE SKIN AND SUBCUTANEOUS TISSUE, UNSP (7) Foot ulcer Code(s): L97.509 - NON-PRESSURE CHRONIC ULCER OTH PRT UNSP FOOT W UNSP SEVERITY (8) Hx of CABG Code(s): Z95.1 - PRESENCE OF AORTOCORONARY BYPASS GRAFT (9) PAD (peripheral artery disease) Code(s): I73.9 - PERIPHERAL VASCULAR DISEASE, UNSPECIFIED (10) Hyperlipidemia Code(s): E78.5 - HYPERLIPIDEMIA, UNSPECIFIED Qualifiers: Hyperlipidemia type: pure hypercholesterolemia Qualified Code(s): E78.00 - Pure hypercholesterolemia, unspecified; E78.0 - Pure hypercholesterolemia (11) Hypertension Code(s): I10 - ESSENTIAL (PRIMARY) HYPERTENSION Qualifiers: Hypertension type: essential hypertension Qualified Code(s): I10 - Essential (primary) hypertension (12) PVD (peripheral vascular disease) Code(s): I73.9 - PERIPHERAL VASCULAR DISEASE, UNSPECIFIED Assessment/Plan IMP COUGH LEFT PLEURAL EFFUSION ?INFECTIOUS,? CHF,? MALIGNANT MEDIASTINAL ADENOPATHY LIKELY REACTIVE DIASTOLIC HF LLE CELLULITIS ASHD S/P CABG H/O AFLUTTER S/P ABLATION CKD PAD DM HTN ANEMIA H/O TIAs PLAN INHALED BRONCHODILATORS ABX PER ID ANTI-TUSSIVES THORACENTESIS ON FRIDAY F/U CHEST X-RAYS hold ELIQUIS on Friday MONITOR LYTES,RENAL FUNCTION,H+H MONITOR URINE OUTPUT HD PER RENAL F/U CHEST CT OUTPATIENT DR ELIAS Problem List - Problems (1) Cellulitis Code(s): L03.90 - CELLULITIS, UNSPECIFIED (2) Cough Code(s): R05 - COUGH (3) Diabetes Code(s): E11.9 - TYPE 2 DIABETES MELLITUS WITHOUT COMPLICATIONS (4) Atrial fibrillation Code(s): I48.91 - UNSPECIFIED ATRIAL FIBRILLATION (5) CHF (congestive heart failure) Code(s): I50.9 - HEART FAILURE, UNSPECIFIED (6) Diabetic foot infection Code(s): E11.628 - TYPE 2 DIABETES MELLITUS WITH OTHER SKIN COMPLICATIONS; L08.9 - LOCAL INFECTION OF THE SKIN AND SUBCUTANEOUS TISSUE, UNSP (7) Foot ulcer Code(s): L97.509 - NON-PRESSURE CHRONIC ULCER OTH PRT UNSP FOOT W UNSP SEVERITY (8) Hx of CABG Code(s): Z95.1 - PRESENCE OF AORTOCORONARY BYPASS GRAFT (9) PAD (peripheral artery disease) Code(s): I73.9 - PERIPHERAL VASCULAR DISEASE, UNSPECIFIED (10) Hyperlipidemia Code(s): E78.5 - HYPERLIPIDEMIA, UNSPECIFIED Qualifiers: Hyperlipidemia type: pure hypercholesterolemia Qualified Code(s): E78.00 - Pure hypercholesterolemia, unspecified; E78.0 - Pure hypercholesterolemia (11) Hypertension Code(s): I10 - ESSENTIAL (PRIMARY) HYPERTENSION Qualifiers: Hypertension type: essential hypertension Qualified Code(s): I10 - Essential (primary) hypertension (12) PVD (peripheral vascular disease) Code(s): I73.9 - PERIPHERAL VASCULAR DISEASE, UNSPECIFIED
[2020-07-07] MEDS ORDERED: SODIUM CHLORIDE 250 ML IV PRN (08:20)
[2020-07-07] MEDS: APIXABAN 2.5 MG TABLET PO SCH ×2 (09:42→22:12)
[2020-07-07] MEDS: amLODIPine BESYLATE 5 MG TABLET (FP) PO SCH (09:42)
[2020-07-07] MEDS: GABAPENTIN 100 MG CAPSULE PO SCH ×2 (09:42→22:12)
[2020-07-07] MEDS: DOXYCYCLINE HYCLATE 100 MG CAPSULE PO SCH ×2 (09:42→17:31)
[2020-07-07] MEDS: PANTOPRAZOLE 20 MG TABLET PO SCH (09:42)
[2020-07-07] MEDS: SODIUM BICARBONATE 650 MG TABLET PO SCH ×2 (09:42→22:12)
[2020-07-07] MEDS: ASPIRIN COATED 81 MG TABLET.EC PO SCH (09:42)
[2020-07-07] MEDS: metoPROLOL SUCCINATE 25 MG TAB.SR.24H (FP) PO SCH (09:42)
[2020-07-07] MEDS: SEVELAMER CARBONATE 800 MG TAB (FP) PO SCH ×3 (09:43→17:30)
--- NOTE | 2020-07-07 09:54 | PN ---
Progress Note (short form) - Note Progress Note: Vascular surgery: Pt states that he is sleepy because he didn't sleep overnight. Vital Signs Period Temp Pulse Resp BP Sys/Snow Pulse Ox Last 24 Hr 97.8 F-99.1 F 63-80 15-28 135-158/56-88 93-100 GEN: A&0x3, NAD Left foot: decreased swelling and edema to the LLE. His forefoot has slight erythema on the dorsal aspect. Packing removed today and the wound probes to anterior aspect of ankle approximately 7 cm. The wound was irrigated and repacked with a Qtip and iodoform packing. Bone palpable Right chest: PC dressing c/d/i CBC, BMP 07/06/20 17:50 07/06/20 17:50 A/P; 70 yo male with chronic Left foot ulcer and now with improved foot infection after bedside drainage, s/p PC placement yesterday D/w Dr. Garcia and recommend to treat empirically with IV abx for os teomyelitis. He clinically does not have it on his MRI but this is a chronic wound with bone exposure and an abscess that was drained. IV antibiotics as per ID Local wound care ordered with iodoform packing Problem List - Problems (1) Diabetic ulcer of left foot Code(s): E11.621 - TYPE 2 DIABETES MELLITUS WITH FOOT ULCER; L97.529 - NON- PRESSURE CHRONIC ULCER OTH PRT LEFT FOOT W UNSP SEVERITY Qualifiers: Diabetic foot ulcer location: unspecified part of foot Diabetes mellitus type: type 2 Non-pressure ulcer stage: unspecified non-pressure ulcer stage Qualified Code(s): E11.621 - Type 2 diabetes mellitus with foot ulcer; L97.529 - Non-pressure chronic ulcer of other part of left foot with unspecified severity
--- NOTE | 2020-07-07 11:15 | PN ---
Progress Note (short form) - Note Progress Note: Podiatry F/U: Seen/evaluated at bedside, NAD. Doing well. Eager to get discharged. [place]: L foot: pedal pulses 1/4, TG warm-warm, CFT brisk to all digits. There is a fifth metatarsal base diabetic ulcer with fibrotic slough present, probing to capsule. No purulent drainage, no fluctuance, minimal erythema.no tenderness to palpation. No soft tissue crepitus. Wound Cx: MRSA, enterobacter Imp: 70 year old diabetic male with left fifth metatarsal base diabetic ulcer, cellulitis Abx per infectious disease Packing reapplied after light irrigation Will need close f/u in wound healing center. No operative management for now. Permacath placed will need home care for changing of packing; every other day iodoform packing + DSD overlying f/u in wound care center.
--- NOTE | 2020-07-07 11:47 | PN ---
Progress Note, Physician History of Present Illness: stable no new issues - Current Medication List Current Medications: Active Medications Acetaminophen (Tylenol -) 650 mg PO Q4H PRN PRN Reason: FEVER Albuterol/Ipratropium (Duoneb -) 1 amp NEB Q6H PRN PRN Reason: WHEEZING Amlodipine Besylate (Norvasc -) 5 mg PO DAILY [facility] Last Admin: 07/07/20 09:42 Dose: 5 mg Documented by: Apixaban (Eliquis -) 2.5 mg PO BID [facility] Last Admin: 07/07/20 09:42 Dose: 2.5 mg Documented by: Aspirin (Ecotrin -) 81 mg PO DAILY [facility] Last Admin: 07/07/20 09:42 Dose: 81 mg Documented by: Doxycycline Hyclate (Vibramycin -) 100 mg PO BID@1000,1800 [facility] Last Admin: 07/07/20 09:42 Dose: 100 mg Documented by: Duloxetine HCl (Cymbalta -) 40 mg PO DAILY [facility] Gabapentin (Neurontin -) 100 mg PO BID [facility] Last Admin: 07/07/20 09:42 Dose: 100 mg Documented by: Guaifenesin (Robitussin -) 5 ml PO Q8H PRN PRN Reason: COUGH Sodium Chloride (Normal Saline -) 250 mls @ 3,000 mls/hr IV PRN PRN PRN Reason: Hypotension during Dialysis Stop: 07/07/20 16:29 Piperacillin Sod/Tazobactam (Sod 2.25 gm/ Dextrose) 50 mls @ 100 mls/hr IVPB Q8H-IV [facility]; Protocol Last Admin: 07/07/20 09:44 Dose: 100 mls/hr Documented by: Sodium Chloride (Normal Saline -) 250 mls @ 3,000 mls/hr IV PRN PRN PRN Reason: Hypotension during Dialysis Stop: 07/08/20 08:20 Insulin Aspart (Novolog Vial Sliding Scale -) 1 vial SQ [facility]; Protocol Last Admin: 07/07/20 06:21 Dose: Not Given Documented by: Insulin Detemir (Levemir Vial) 30 units SQ HS [facility] Last Admin: 07/06/20 21:34 Dose: 30 units Documented by: Metoprolol Succinate (Toprol Xl -) 25 mg PO DAILY [facility] Last Admin: 07/07/20 09:42 Dose: 25 mg Documented by: Pantoprazole Sodium (Protonix -) 20 mg PO DAILY [facility] Last Admin: 07/07/20 09:42 Dose: 20 mg Documented by: Sevelamer Carbonate (Renvela -) 800 mg PO TIDCM [facility] Last Admin: 07/07/20 09:43 Dose: 800 mg Documented by: Sodium Bicarbonate (Sodium Bicarbonate -) 650 mg PO BID [facility] Last Admin: 07/07/20 09:42 Dose: 650 mg Documented by: Zolpidem Tartrate (Ambien -) 5 mg PO PRN PRN Reason: INSOMNIA Last Admin: 07/06/20 21:37 Dose: 5 mg Documented by: - Objective Vital Signs: Vital Signs Temperature 99.2 F 07/07/20 10:00 Pulse Rate 74 07/07/20 10:00 Respiratory Rate 07/07/20 10:00 Blood Pressure 148/66 07/07/20 10:00 O2 Sat by Pulse Oximetry (%) 94 L 07/07/20 10:00 Constitutional: Yes: No Distress, Calm Cardiovascular: Yes: S1, S2 Respiratory: Yes: Regular, CTA Bilaterally Gastrointestinal: Yes: Normal Bowel Sounds, Soft Musculoskeletal: Yes: WNL Extremities: Yes: WNL Neurological: Yes: Alert, Oriented Psychiatric: Yes: Alert, Oriented Labs: CBC, BMP 07/06/20 17:50 07/06/20 17:50 Assessment/Plan Problem List - Problems (1) Cellulitis Code(s): L03.90 - CELLULITIS, UNSPECIFIED (2) Diabetes Code(s): E11.9 - TYPE 2 DIABETES MELLITUS WITHOUT COMPLICATIONS (3) CHF (congestive heart failure) Code(s): I50.9 - HEART FAILURE, UNSPECIFIED (4) Diabetic neuropathy Code(s): E11.40 - TYPE 2 DIABETES MELLITUS WITH DIABETIC NEUROPATHY, UNSP (5) ESRF (end stage renal failure) Code(s): N18.6 - END STAGE RENAL DISEASE (6) Hx of CABG Code(s): Z95.1 - PRESENCE OF AORTOCORONARY BYPASS GRAFT (7) PAD (peripheral artery disease) Code(s): I73.9 - PERIPHERAL VASCULAR DISEASE, UNSPECIFIED (8) CAD (coronary artery disease) Code(s): I25.10 - ATHSCL HEART DISEASE OF [place] CORONARY ARTERY W/O ANG PCTRS Qualifiers: Coronary Disease-Associated Artery/Lesion type: [place] artery [place] vs. transplanted heart: [place] heart Associated angina: without angina Qualified Code(s): I25.10 - Atherosclerotic heart disease of [place] coronary artery without angina pectoris (9) Hyperlipidemia Code(s): E78.5 - HYPERLIPIDEMIA, UNSPECIFIED Qualifiers: Hyperlipidemia type: pure hypercholesterolemia Qualified Code(s): E78.00 - Pure hypercholesterolemia, unspecified; E78.0 - Pure hypercholesterolemia (10) Hypertension Code(s): I10 - ESSENTIAL (PRIMARY) HYPERTENSION Qualifiers: Hypertension type: essential hypertension Qualified Code(s): I10 - Essential (primary) hypertension (11) PVD (peripheral vascular disease) Code(s): I73.9 - PERIPHERAL VASCULAR DISEASE, UNSPECIFIED Assessment/Plan LLE cellulitis/foot abscess - s/p drainage Diabetic foot ulcer Fever Leukocytosis Neuropathy PVD CAD s/p CABG CKD continue current mgmt wound care rest as per the team patient for permacath d/w podiatry and vascular bone too close to skin will treat as osteo with another 5 weeks of iv abx
[2020-07-07] MEDS ORDERED: PT OWN MED DRAWER 7, Y5N ONE (13:27)
[2020-07-07] MEDS: DULoxetine HCL 20 MG CAPSULE.DR PO SCH (13:48)
--- NOTE | 2020-07-07 14:25 | PN ---
Progress Note, Physician History of Present Illness: HAD PERMA CATH AND GOT DIALYSIS - Current Medication List Current Medications: Active Medications Acetaminophen (Tylenol -) 650 mg PO Q4H PRN PRN Reason: FEVER Albuterol/Ipratropium (Duoneb -) 1 amp NEB Q6H PRN PRN Reason: WHEEZING Amlodipine Besylate (Norvasc -) 5 mg PO DAILY [facility] Last Admin: 07/07/20 09:42 Dose: 5 mg Documented by: Apixaban (Eliquis -) 2.5 mg PO BID [facility] Last Admin: 07/07/20 09:42 Dose: 2.5 mg Documented by: Aspirin (Ecotrin -) 81 mg PO DAILY [facility] Last Admin: 07/07/20 09:42 Dose: 81 mg Documented by: Doxycycline Hyclate (Vibramycin -) 100 mg PO BID@1000,1800 [facility] Last Admin: 07/07/20 09:42 Dose: 100 mg Documented by: Duloxetine HCl (Cymbalta -) 40 mg PO DAILY [facility] Last Admin: 07/07/20 13:48 Dose: 40 mg Documented by: Gabapentin (Neurontin -) 100 mg PO BID [facility] Last Admin: 07/07/20 09:42 Dose: 100 mg Documented by: Guaifenesin (Robitussin -) 5 ml PO Q8H PRN PRN Reason: COUGH Sodium Chloride (Normal Saline -) 250 mls @ 3,000 mls/hr IV PRN PRN PRN Reason: Hypotension during Dialysis Stop: 07/07/20 16:29 Piperacillin Sod/Tazobactam (Sod 2.25 gm/ Dextrose) 50 mls @ 100 mls/hr IVPB Q8H-IV [facility]; Protocol Last Admin: 07/07/20 09:44 Dose: 100 mls/hr Documented by: Sodium Chloride (Normal Saline -) 250 mls @ 3,000 mls/hr IV PRN PRN PRN Reason: Hypotension during Dialysis Stop: 07/08/20 08:20 Insulin Aspart (Novolog Vial Sliding Scale -) 1 vial SQ ACHS [facility]; Protocol Last Admin: 07/07/20 11:50 Dose: 2 units Documented by: Insulin Detemir (Levemir Vial) 30 units SQ HS [facility] Last Admin: 07/06/20 21:34 Dose: 30 units Documented by: Metoprolol Succinate (Toprol Xl -) 25 mg PO DAILY [facility] Last Admin: 07/07/20 09:42 Dose: 25 mg Documented by: Pantoprazole Sodium (Protonix -) 20 mg PO DAILY [facility] Last Admin: 07/07/20 09:42 Dose: 20 mg Documented by: Sevelamer Carbonate (Renvela -) 800 mg PO TIDCM [facility] Last Admin: 07/07/20 11:49 Dose: 800 mg Documented by: Sodium Bicarbonate (Sodium Bicarbonate -) 650 mg PO BID [facility] Last Admin: 07/07/20 09:42 Dose: 650 mg Documented by: Zolpidem Tartrate (Ambien -) 5 mg PO PRN PRN Reason: INSOMNIA Last Admin: 07/06/20 21:37 Dose: 5 mg Documented by: - Objective Vital Signs: Vital Signs Temperature 99.2 F 07/07/20 10:00 Pulse Rate 74 07/07/20 10:00 Respiratory Rate 07/07/20 10:00 Blood Pressure 148/66 07/07/20 10:00 O2 Sat by Pulse Oximetry (%) 94 L 07/07/20 10:00 Constitutional: Yes: No Distress HENT: Yes: Atraumatic Neck: Yes: Supple Cardiovascular: Yes: Regular Rate and Rhythm Respiratory: Yes: Rhonchi Gastrointestinal: Yes: Normal Bowel Sounds Extremities: Yes: WNL Neurological: Yes: Alert, Oriented Labs: CBC, BMP 07/06/20 17:50 07/06/20 17:50 Problem List - Problems (1) Cellulitis Assessment/Plan: iv abx improving Code(s): L03.90 - CELLULITIS, UNSPECIFIED (2) Diabetes Assessment/Plan: on insulin bgms Code(s): E11.9 - TYPE 2 DIABETES MELLITUS WITHOUT COMPLICATIONS (3) ARF (acute renal failure) Assessment/Plan: ON DIALYSIS NOW Code(s): N17.9 - ACUTE KIDNEY FAILURE, UNSPECIFIED (4) Hx of CABG Code(s): Z95.1 - PRESENCE OF AORTOCORONARY BYPASS GRAFT (5) PAD (peripheral artery disease) Code(s): I73.9 - PERIPHERAL VASCULAR DISEASE, UNSPECIFIED (6) Hypertension Assessment/Plan: on meds monitor Code(s): I10 - ESSENTIAL (PRIMARY) HYPERTENSION Qualifiers: Hypertension type: essential hypertension Qualified Code(s): I10 - Essential (primary) hypertension (7) Atrial fibrillation Assessment/Plan: on meds Code(s): I48.91 - UNSPECIFIED ATRIAL FIBRILLATION (8) Hyperlipidemia Code(s): E78.5 - HYPERLIPIDEMIA, UNSPECIFIED Qualifiers: Hyperlipidemia type: pure hypercholesterolemia Qualified Code(s): E78.00 - Pure hypercholesterolemia, unspecified; E78.0 - Pure hypercholesterolemia (9) ESRF (end stage renal failure) Code(s): N18.6 - END STAGE RENAL DISEASE (10) PVD (peripheral vascular disease) Code(s): I73.9 - PERIPHERAL VASCULAR DISEASE, UNSPECIFIED Assessment/Plan COVERING FOR DR GALEAS TODAY D/W DR ELIAS THORACENTESIS CAN BE DONE OUT PATIENT HE WILL REEVALUATE TOMORROW
[2020-07-07 15:49] VITALS: BMI 30.4
--- NOTE | 2020-07-07 19:34 | PN ---
Progress Note, Physician Chief Complaint: Weakness History of Present Illness: Seen and examined at the bedside awake and alert offers no acute complaints s/p fist dialysis yesterday via permcath, tolerated it well no sob, cp, abd pain, fever, chills, N/V/D - Current Medication List Current Medications: Active Medications Acetaminophen (Tylenol -) 650 mg PO Q4H PRN PRN Reason: FEVER Albuterol/Ipratropium (Duoneb -) 1 amp NEB Q6H PRN PRN Reason: WHEEZING Amlodipine Besylate (Norvasc -) 5 mg PO DAILY [facility] Last Admin: 07/07/20 09:42 Dose: 5 mg Documented by: Apixaban (Eliquis -) 2.5 mg PO BID [facility] Last Admin: 07/07/20 09:42 Dose: 2.5 mg Documented by: Aspirin (Ecotrin -) 81 mg PO DAILY [facility] Last Admin: 07/07/20 09:42 Dose: 81 mg Documented by: Doxycycline Hyclate (Vibramycin -) 100 mg PO BID@1000,1800 [facility] Last Admin: 07/07/20 17:31 Dose: 100 mg Documented by: Duloxetine HCl (Cymbalta -) 40 mg PO DAILY [facility] Last Admin: 07/07/20 13:48 Dose: 40 mg Documented by: Gabapentin (Neurontin -) 100 mg PO BID [facility] Last Admin: 07/07/20 09:42 Dose: 100 mg Documented by: Guaifenesin (Robitussin -) 5 ml PO Q8H PRN PRN Reason: COUGH Piperacillin Sod/Tazobactam (Sod 2.25 gm/ Dextrose) 50 mls @ 100 mls/hr IVPB Q8H-IV [facility]; Protocol Last Admin: 07/07/20 17:31 Dose: 100 mls/hr Documented by: Sodium Chloride (Normal Saline -) 250 mls @ 3,000 mls/hr IV PRN PRN PRN Reason: Hypotension during Dialysis Stop: 07/08/20 08:20 Insulin Aspart (Novolog Vial Sliding Scale -) 1 vial SQ ACHS [facility]; Protocol Last Admin: 07/07/20 17:30 Dose: 4 units Documented by: Insulin Detemir (Levemir Vial) 30 units SQ HS [facility] Last Admin: 07/06/20 21:34 Dose: 30 units Documented by: Metoprolol Succinate (Toprol Xl -) 25 mg PO DAILY [facility] Last Admin: 07/07/20 09:42 Dose: 25 mg Documented by: Pantoprazole Sodium (Protonix -) 20 mg PO DAILY [facility] Last Admin: 07/07/20 09:42 Dose: 20 mg Documented by: Sevelamer Carbonate (Renvela -) 800 mg PO TIDCM [facility] Last Admin: 07/07/20 17:30 Dose: 800 mg Documented by: Sodium Bicarbonate (Sodium Bicarbonate -) 650 mg PO BID [facility] Last Admin: 07/07/20 09:42 Dose: 650 mg Documented by: Zolpidem Tartrate (Ambien -) 5 mg PO HS PRN PRN Reason: INSOMNIA Last Admin: 07/06/20 21:37 Dose: 5 mg Documented by: - Objective Vital Signs: Vital Signs Temperature 98.2 F 07/07/20 18:00 Pulse Rate 66 07/07/20 18:00 Respiratory Rate 07/07/20 18:00 Blood Pressure 149/68 07/07/20 18:00 O2 Sat by Pulse Oximetry (%) 94 L 07/07/20 18:00 Constitutional: Yes: No Distress, Calm HENT: Yes: Atraumatic Neck: Yes: Supple Cardiovascular: Yes: Regular Rate and Rhythm Respiratory: Yes: Regular, CTA Bilaterally Gastrointestinal: Yes: Soft Extremities: No: Cyanosis Edema: Yes Neurological: Yes: Alert Labs: CBC, BMP 07/06/20 17:50 07/06/20 17:50 Assessment/Plan 70 year old male with history of CKD stage 4/5, IDDM, hypertension, hyperlipidemia, BOBY, CHF, A[place], PVD who presented from home with a fall and generalized weakness and noted to have left lower extremity cellulitis with leukocytosis/WBC of 20k and Cr of 4.5. 1. Lower extremity cellulitis/ non-healing wound. 2. CKD stage 5 now ESRD on HD 3. Anemia 4. Hx of CHF w/o evidence of acute exacerbation 5. Hypertension 6. Hyperlipidemia tolerated first dialysis well, for second dialysis today. for minimal UF today. Next planned dialysis will be Friday or Friday. forms submitted for outpatient dialysis placement, awaiting confirmation. Continue antibiotics for LE cellulitis may need antibiotics on discharge depending on extent of soft tissue wound. Imaging studies showed no abcess or collection Renal diet Thank you Jonah Painting DO
[2020-07-07] MEDS: INSULIN (LEVEMIR) 100 UNITS/ML UNITS SQ SCH (22:12)
[2020-07-07] MEDS: ZOLPIDEM TARTRATE 5 MG TABLET PO PRN (22:12)
[2020-07-08] MEDS ORDERED: DEXTROSE 5%-WATER - 50 ML IVPB ONE ×4 (00:59→23:09)
[2020-07-08] MEDS ORDERED: PIPERACILLIN/TAZOBACTAM 2.25 GM VIAL IVPB ONE ×4 (00:59→23:09)
[2020-07-08] MEDS: PIPERACILLIN/TAZOB 2.25 GM 2.25 GM in DEXTROSE 5%-WATER - 50 ML IVPB SCH ×3 (02:06→17:12)
[2020-07-08] MEDS: INSULIN SLIDING SCALE (NOVOLOG) 1 VIAL SQ SCH ×4 (06:10→23:42)
--- NOTE | 2020-07-08 06:46 | PN ---
Progress Note, Physician History of Present Illness: pulmonary alert,comfortable,-sob,less cough,tolerated HD - Current Medication List Current Medications: Active Medications Acetaminophen (Tylenol -) 650 mg PO Q4H PRN PRN Reason: FEVER Albuterol/Ipratropium (Duoneb -) 1 amp NEB Q6H PRN PRN Reason: WHEEZING Amlodipine Besylate (Norvasc -) 5 mg PO DAILY [facility] Last Admin: 07/07/20 09:42 Dose: 5 mg Documented by: Apixaban (Eliquis -) 2.5 mg PO BID [facility] Last Admin: 07/07/20 22:12 Dose: 2.5 mg Documented by: Aspirin (Ecotrin -) 81 mg PO DAILY [facility] Last Admin: 07/07/20 09:42 Dose: 81 mg Documented by: Doxycycline Hyclate (Vibramycin -) 100 mg PO BID@1000,1800 [facility] Last Admin: 07/07/20 17:31 Dose: 100 mg Documented by: Duloxetine HCl (Cymbalta -) 40 mg PO DAILY [facility] Last Admin: 07/07/20 13:48 Dose: 40 mg Documented by: Gabapentin (Neurontin -) 100 mg PO BID [facility] Last Admin: 07/07/20 22:12 Dose: 100 mg Documented by: Guaifenesin (Robitussin -) 5 ml PO Q8H PRN PRN Reason: COUGH Piperacillin Sod/Tazobactam (Sod 2.25 gm/ Dextrose) 50 mls @ 100 mls/hr IVPB Q8H-IV [facility]; Protocol Last Admin: 07/08/20 02:06 Dose: 100 mls/hr Documented by: Sodium Chloride (Normal Saline -) 250 mls @ 3,000 mls/hr IV PRN PRN PRN Reason: Hypotension during Dialysis Stop: 07/08/20 08:20 Insulin Aspart (Novolog Vial Sliding Scale -) 1 vial SQ ACHS [facility]; Protocol Last Admin: 07/08/20 06:10 Dose: Not Given Documented by: Insulin Detemir (Levemir Vial) 30 units SQ HS [facility] Last Admin: 07/07/20 22:12 Dose: 30 units Documented by: Metoprolol Succinate (Toprol Xl -) 25 mg PO DAILY [facility] Last Admin: 07/07/20 09:42 Dose: 25 mg Documented by: Pantoprazole Sodium (Protonix -) 20 mg PO DAILY [facility] Last Admin: 07/07/20 09:42 Dose: 20 mg Documented by: Sevelamer Carbonate (Renvela -) 800 mg PO TIDCM [facility] Last Admin: 07/07/20 17:30 Dose: 800 mg Documented by: Sodium Bicarbonate (Sodium Bicarbonate -) 650 mg PO BID [facility] Last Admin: 07/07/20 22:12 Dose: 650 mg Documented by: Zolpidem Tartrate (Ambien -) 5 mg PO HS PRN PRN Reason: INSOMNIA Last Admin: 07/07/20 22:12 Dose: 5 mg Documented by: - Objective Vital Signs: Vital Signs Temperature 98.1 F 07/08/20 06:00 Pulse Rate 70 07/08/20 06:00 Respiratory Rate 19 07/08/20 06:00 Blood Pressure 146/64 07/08/20 06:00 O2 Sat by Pulse Oximetry (%) 94 L 07/08/20 06:00 Constitutional: Yes: Well Nourished, Calm Eyes: Yes: WNL HENT: Yes: WNL Neck: Yes: WNL Cardiovascular: Yes: Regular Rate and Rhythm, S1, S2 Respiratory: Yes: CTA Bilaterally Gastrointestinal: Yes: Normal Bowel Sounds, Soft Extremities: Yes: WNL Edema: No Labs: CBC, BMP 07/06/20 17:50 Problem List - Problems (1) Cellulitis Code(s): L03.90 - CELLULITIS, UNSPECIFIED (2) Cough Code(s): R05 - COUGH (3) Diabetes Code(s): E11.9 - TYPE 2 DIABETES MELLITUS WITHOUT COMPLICATIONS (4) Atrial fibrillation Code(s): I48.91 - UNSPECIFIED ATRIAL FIBRILLATION (5) CHF (congestive heart failure) Code(s): I50.9 - HEART FAILURE, UNSPECIFIED (6) Diabetic foot infection Code(s): E11.628 - TYPE 2 DIABETES MELLITUS WITH OTHER SKIN COMPLICATIONS; L08.9 - LOCAL INFECTION OF THE SKIN AND SUBCUTANEOUS TISSUE, UNSP (7) Foot ulcer Code(s): L97.509 - NON-PRESSURE CHRONIC ULCER OTH PRT UNSP FOOT W UNSP SEVERITY (8) Hx of CABG Code(s): Z95.1 - PRESENCE OF AORTOCORONARY BYPASS GRAFT (9) PAD (peripheral artery disease) Code(s): I73.9 - PERIPHERAL VASCULAR DISEASE, UNSPECIFIED (10) Hyperlipidemia Code(s): E78.5 - HYPERLIPIDEMIA, UNSPECIFIED Qualifiers: Hyperlipidemia type: pure hypercholesterolemia Qualified Code(s): E78.00 - Pure hypercholesterolemia, unspecified; E78.0 - Pure hypercholesterolemia (11) Hypertension Code(s): I10 - ESSENTIAL (PRIMARY) HYPERTENSION Qualifiers: Hypertension type: essential hypertension Qualified Code(s): I10 - Essential (primary) hypertension (12) PVD (peripheral vascular disease) Code(s): I73.9 - PERIPHERAL VASCULAR DISEASE, UNSPECIFIED Assessment/Plan IMP COUGH LEFT PLEURAL EFFUSION ?INFECTIOUS,? CHF,? MALIGNANT MEDIASTINAL ADENOPATHY LIKELY REACTIVE DIASTOLIC HF LLE CELLULITIS ASHD S/P CABG H/O AFLUTTER S/P ABLATION CKD PAD DM HTN ANEMIA H/O TIAs PLAN INHALED BRONCHODILATORS ABX PER ID ANTI-TUSSIVES THORACENTESIS ON FRIDAY F/U CHEST X-RAY TODAY hold ELIQUIS on Friday MONITOR LYTES,RENAL FUNCTION,H+H HD PER RENAL F/U CHEST CT OUTPATIENT DR ELIAS Problem List - Problems (1) Cellulitis Code(s): L03.90 - CELLULITIS, UNSPECIFIED (2) Cough Code(s): R05 - COUGH (3) Diabetes Code(s): E11.9 - TYPE 2 DIABETES [place]LL[place]US WITHOUT COMPLICATIONS (4) Atrial fibrillation Code(s): I48.91 - UNSPECIFIED ATRIAL FIBRILLATION (5) CHF (congestive heart failure) Code(s): I50.9 - HEART FAILURE, UNSPECIFIED (6) Diabetic foot infection Code(s): E11.628 - TYPE 2 DIABETES MELLITUS WITH OTHER SKIN COMPLICATIONS; L08.9 - LOCAL INFECTION OF THE SKIN AND SUBCUTANEOUS TISSUE, UNSP (7) Foot ulcer Code(s): L97.509 - NON-PRESSURE CHRONIC ULCER OTH PRT UNSP FOOT W UNSP SEVERITY (8) Hx of CABG Code(s): Z95.1 - PRESENCE OF AORTOCORONARY BYPASS GRAFT (9) PAD (peripheral artery disease) Code(s): I73.9 - PERIPHERAL VASCULAR DISEASE, UNSPECIFIED (10) Hyperlipidemia Code(s): E78.5 - HYPERLIPIDEMIA, UNSPECIFIED Qualifiers: Hyperlipidemia type: pure hypercholesterolemia Qualified Code(s): E78.00 - Pure hypercholesterolemia, unspecified; E78.0 - Pure hypercholesterolemia (11) Hypertension Code(s): I10 - ESSENTIAL (PRIMARY) HYPERTENSION Qualifiers: Hypertension type: essential hypertension Qualified Code(s): I10 - Essential (primary) hypertension (12) PVD (peripheral vascular disease) Code(s): I73.9 - PERIPHERAL VASCULAR DISEASE, UNSPECIFIED
[2020-07-08] MEDS: SEVELAMER CARBONATE 800 MG TAB (FP) PO SCH ×3 (09:08→16:31)
[2020-07-08] MEDS: DOXYCYCLINE HYCLATE 100 MG CAPSULE PO SCH ×2 (09:09→17:13)
[2020-07-08] MEDS: PANTOPRAZOLE 20 MG TABLET PO SCH (09:09)
[2020-07-08] MEDS: metoPROLOL SUCCINATE 25 MG TAB.SR.24H (FP) PO SCH (09:09)
[2020-07-08] MEDS: DULoxetine HCL 20 MG CAPSULE.DR PO SCH (09:09)
[2020-07-08] MEDS: SODIUM BICARBONATE 650 MG TABLET PO SCH ×2 (09:09→22:58)
[2020-07-08] MEDS: amLODIPine BESYLATE 5 MG TABLET (FP) PO SCH (09:09)
[2020-07-08] MEDS: ASPIRIN COATED 81 MG TABLET.EC PO SCH (09:09)
[2020-07-08] MEDS: GABAPENTIN 100 MG CAPSULE PO SCH ×2 (09:10→22:58)
--- NOTE | 2020-07-08 11:28 | PN ---
Progress Note, Physician History of Present Illness: stable no new issues - Current Medication List Current Medications: Active Medications Acetaminophen (Tylenol -) 650 mg PO Q4H PRN PRN Reason: FEVER Albuterol/Ipratropium (Duoneb -) 1 amp NEB Q6H PRN PRN Reason: WHEEZING Amlodipine Besylate (Norvasc -) 5 mg PO DAILY [facility] Last Admin: 07/08/20 09:09 Dose: 5 mg Documented by: Apixaban (Eliquis -) 2.5 mg PO BID [facility] Last Admin: 07/07/20 22:12 Dose: 2.5 mg Documented by: Aspirin (Ecotrin -) 81 mg PO DAILY [facility] Last Admin: 07/08/20 09:09 Dose: 81 mg Documented by: Doxycycline Hyclate (Vibramycin -) 100 mg PO BID@1000,1800 [facility] Last Admin: 07/08/20 09:09 Dose: 100 mg Documented by: Duloxetine HCl (Cymbalta -) 40 mg PO DAILY [facility] Last Admin: 07/08/20 09:09 Dose: 40 mg Documented by: Gabapentin (Neurontin -) 100 mg PO BID [facility] Last Admin: 07/08/20 09:10 Dose: 100 mg Documented by: Guaifenesin (Robitussin -) 5 ml PO Q8H PRN PRN Reason: COUGH Piperacillin Sod/Tazobactam (Sod 2.25 gm/ Dextrose) 50 mls @ 100 mls/hr IVPB Q8H-IV [facility]; Protocol Last Admin: 07/08/20 09:10 Dose: 100 mls/hr Documented by: Sodium Chloride (Normal Saline -) 250 mls @ 3,000 mls/hr IV PRN PRN PRN Reason: Hypotension during Dialysis Stop: 07/08/20 08:20 Insulin Aspart (Novolog Vial Sliding Scale -) 1 vial SQ ACHS [facility]; Protocol Last Admin: 07/08/20 06:10 Dose: Not Given Documented by: Insulin Detemir (Levemir Vial) 30 units SQ HS [facility] Last Admin: 07/07/20 22:12 Dose: 30 units Documented by: Metoprolol Succinate (Toprol Xl -) 25 mg PO DAILY [facility] Last Admin: 07/08/20 09:09 Dose: 25 mg Documented by: Pantoprazole Sodium (Protonix -) 20 mg PO DAILY [facility] Last Admin: 07/08/20 09:09 Dose: 20 mg Documented by: Sevelamer Carbonate (Renvela -) 800 mg PO TIDCM [facility] Last Admin: 07/08/20 09:08 Dose: 800 mg Documented by: Sodium Bicarbonate (Sodium Bicarbonate -) 650 mg PO BID [facility] Last Admin: 07/08/20 09:09 Dose: 650 mg Documented by: Zolpidem Tartrate (Ambien -) 5 mg PO HS PRN PRN Reason: INSOMNIA Last Admin: 07/07/20 22:12 Dose: 5 mg Documented by: - Objective Vital Signs: Vital Signs Temperature 97.9 F 07/08/20 08:50 Pulse Rate 78 07/08/20 08:50 Respiratory Rate 20 07/08/20 09:00 Blood Pressure 145/64 07/08/20 08:50 O2 Sat by Pulse Oximetry (%) 98 07/08/20 09:00 Constitutional: Yes: No Distress, Calm Cardiovascular: Yes: S1, S2 Respiratory: Yes: Regular, CTA Bilaterally Gastrointestinal: Yes: Normal Bowel Sounds, Soft Musculoskeletal: Yes: WNL Extremities: Yes: WNL Neurological: Yes: Alert, Oriented Psychiatric: Yes: Alert, Oriented Labs: CBC, BMP 07/06/20 17:50 07/06/20 17:50 Assessment/Plan Problem List - Problems (1) Cellulitis Code(s): L03.90 - CELLULITIS, UNSPECIFIED (2) Diabetes Code(s): E11.9 - TYPE 2 DIABETES MELLITUS WITHOUT COMPLICATIONS (3) CHF (congestive heart failure) Code(s): I50.9 - HEART FAILURE, UNSPECIFIED (4) Diabetic neuropathy Code(s): E11.40 - TYPE 2 DIABETES MELLITUS WITH DIABETIC NEUROPATHY, UNSP (5) ESRF (end stage renal failure) Code(s): N18.6 - END STAGE RENAL DISEASE (6) Hx of CABG Code(s): Z95.1 - PRESENCE OF AORTOCORONARY BYPASS GRAFT (7) PAD (peripheral artery disease) Code(s): I73.9 - PERIPHERAL VASCULAR DISEASE, UNSPECIFIED (8) CAD (coronary artery disease) Code(s): I25.10 - ATHSCL HEART DISEASE OF [place] CORONARY ARTERY W/O ANG PCTRS Qualifiers: Coronary Disease-Associated Artery/Lesion type: [place] artery [place] vs. transplanted heart: [place] heart Associated angina: without angina Qualified Code(s): I25.10 - Atherosclerotic heart disease of [place] coronary artery without angina pectoris (9) Hyperlipidemia Code(s): E78.5 - HYPERLIPIDEMIA, UNSPECIFIED Qualifiers: Hyperlipidemia type: pure hypercholesterolemia Qualified Code(s): E78.00 - Pure hypercholesterolemia, unspecified; E78.0 - Pure hypercholesterolemia (10) Hypertension Code(s): I10 - ESSENTIAL (PRIMARY) HYPERTENSION Qualifiers: Hypertension type: essential hypertension Qualified Code(s): I10 - Essential (primary) hypertension (11) PVD (peripheral vascular disease) Code(s): I73.9 - PERIPHERAL VASCULAR DISEASE, UNSPECIFIED Assessment/Plan LLE cellulitis/foot abscess - s/p drainage Diabetic foot ulcer Fever Leukocytosis Neuropathy PVD CAD s/p CABG CKD we can use vanco and cefatrzidine during dialysis will d/w nephro
[2020-07-08] MEDS ORDERED: ONDANSETRON 4 MG/2 ML VIAL IVPUSH PRN (11:56)
[2020-07-08] MEDS: APIXABAN 2.5 MG TABLET PO SCH (13:28)
--- NOTE | 2020-07-08 16:09 | PN ---
Progress Note, Physician Chief Complaint: Weakness History of Present Illness: Seen and examined at the bedside awake and alert reports episode of dizziness (rooom spinning) and vomiting this am when trying to stand up denies any CP, shortness of breath, palpitations s/p dialysis yesterday with 1kg UF - Current Medication List Current Medications: Active Medications Acetaminophen (Tylenol -) 650 mg PO Q4H PRN PRN Reason: FEVER Albuterol/Ipratropium (Duoneb -) 1 amp NEB Q6H PRN PRN Reason: WHEEZING Amlodipine Besylate (Norvasc -) 5 mg PO DAILY [facility] Last Admin: 07/08/20 09:09 Dose: 5 mg Documented by: Aspirin (Ecotrin -) 81 mg PO DAILY [facility] Last Admin: 07/08/20 09:09 Dose: 81 mg Documented by: Doxycycline Hyclate (Vibramycin -) 100 mg PO BID@1000,1800 [facility] Last Admin: 07/08/20 09:09 Dose: 100 mg Documented by: Duloxetine HCl (Cymbalta -) 40 mg PO DAILY [facility] Last Admin: 07/08/20 09:09 Dose: 40 mg Documented by: Gabapentin (Neurontin -) 100 mg PO BID [facility] Last Admin: 07/08/20 09:10 Dose: 100 mg Documented by: Guaifenesin (Robitussin -) 5 ml PO Q8H PRN PRN Reason: COUGH Piperacillin Sod/Tazobactam (Sod 2.25 gm/ Dextrose) 50 mls @ 100 mls/hr IVPB Q8H-IV [facility]; Protocol Last Admin: 07/08/20 09:10 Dose: 100 mls/hr Documented by: Sodium Chloride (Normal Saline -) 250 mls @ 3,000 mls/hr IV PRN PRN PRN Reason: Hypotension during Dialysis Stop: 07/08/20 08:20 Insulin Aspart (Novolog Vial Sliding Scale -) 1 vial SQ ACHS [facility]; Protocol Last Admin: 07/08/20 12:03 Dose: 2 units Documented by: Insulin Detemir (Levemir Vial) 30 units SQ HS [facility] Last Admin: 07/07/20 22:12 Dose: 30 units Documented by: Metoprolol Succinate (Toprol Xl -) 25 mg PO DAILY [facility] Last Admin: 07/08/20 09:09 Dose: 25 mg Documented by: Ondansetron HCl (Zofran Injection) 4 mg IVPUSH Q6H PRN PRN Reason: NAUSEA AND/OR VOMITING Pantoprazole Sodium (Protonix -) 20 mg PO DAILY [facility] Last Admin: 07/08/20 09:09 Dose: 20 mg Documented by: Sevelamer Carbonate (Renvela -) 800 mg PO TIDCM [facility] Last Admin: 07/08/20 13:28 Dose: 800 mg Documented by: Sodium Bicarbonate (Sodium Bicarbonate -) 650 mg PO BID [facility] Last Admin: 07/08/20 09:09 Dose: 650 mg Documented by: Zolpidem Tartrate (Ambien -) 5 mg PO HS PRN PRN Reason: INSOMNIA Last Admin: 07/07/20 22:12 Dose: 5 mg Documented by: - Objective Vital Signs: Vital Signs Temperature 98.3 F 07/08/20 14:17 Pulse Rate 72 07/08/20 14:17 Respiratory Rate 20 07/08/20 14:17 Blood Pressure 162/68 07/08/20 14:17 O2 Sat by Pulse Oximetry (%) 92 L 07/08/20 14:17 Constitutional: Yes: No Distress HENT: Yes: Atraumatic Cardiovascular: Yes: Regular Rate and Rhythm Respiratory: Yes: Regular, Diminished. No: Rales, Rhonchi, SOB Extremities: No: Cyanosis Edema: No Neurological: Yes: Alert, Oriented Labs: CBC, BMP 07/06/20 17:50 07/06/20 17:50 Assessment/Plan 70 year old male with history of CKD stage 4/5, IDDM, hypertension, hyperlipidemia, BOBY, CHF, Aflutter, PVD who presented from home with a fall and generalized weakness and noted to have left lower extremity cellulitis with leukocytosis/WBC of 20k and Cr of 4.5. 1. Lower extremity cellulitis/ non-healing wound. 2. CKD stage 5 now ESRD on HD 3. Anemia 4. Hx of CHF w/o evidence of acute exacerbation 5. Hypertension 6. Hyperlipidemia 7. Pleural effusion 8. Dizziness r/o orthostatic hypotension vs. vertigo s/p 2 sessions of dialysis this admission no acute need for dialysis today, next planned treatment Friday or Friday forms submitted for outpatient dialysis placement, awaiting confirmation. Unclear why pt was dizzy today. BP is elevated. Will check orthostatics. If orthostatics are normal can consider meclazine as pt has room spinning sensation similar to vertigo. check CBC today to r/o worsening anemia as contributor to dizziness. Continue antibiotics for LE cellulitis may need antibiotics on discharge depending on extent of soft tissue wound. Imaging studies showed no abcess or collection Renal diet Thank you Jonah Painting DO
[2020-07-08 17:37] LABS: HEMATOCRIT 27.1 % (35.4-49); HEMOGLOBIN 8.7 GM/dL (11.7-16.9); MCH 26.9 pg (25.7-33.7); MCHC 32.2 g/dl (32.0-35.9); MEAN CELL VOLUME 83.5 fl (80-96); MEAN PLT VOLUME 8.1 fl (7.5-11.1); PLATELET COUNT 383 K/MM3 (134-434); RBC 3.25 M/mm3 (4.00-5.60); RDW 15.3 % (11.9-15.9); WHITE BLOOD COUNT 10.5 K/mm3 (4.0-10.0)
[2020-07-08 17:59] LABS: BLOOD UREA NITROGEN 37.4 mg/dL (7-18); CALCIUM 7.7 mg/dL (8.5-10.1); CREATININE 3.7 mg/dL (0.55-1.3)
--- NOTE | 2020-07-08 21:09 | PN ---
Progress Note, Physician - Current Medication List Current Medications: Active Medications Acetaminophen (Tylenol -) 650 mg PO Q4H PRN PRN Reason: FEVER Albuterol/Ipratropium (Duoneb -) 1 amp NEB Q6H PRN PRN Reason: WHEEZING Amlodipine Besylate (Norvasc -) 5 mg PO DAILY [facility] Last Admin: 07/08/20 09:09 Dose: 5 mg Documented by: Aspirin (Ecotrin -) 81 mg PO DAILY [facility] Last Admin: 07/08/20 09:09 Dose: 81 mg Documented by: Doxycycline Hyclate (Vibramycin -) 100 mg PO BID@1000,1800 [facility] Last Admin: 07/08/20 17:13 Dose: 100 mg Documented by: Duloxetine HCl (Cymbalta -) 40 mg PO DAILY [facility] Last Admin: 07/08/20 09:09 Dose: 40 mg Documented by: Gabapentin (Neurontin -) 100 mg PO BID [facility] Last Admin: 07/08/20 09:10 Dose: 100 mg Documented by: Guaifenesin (Robitussin -) 5 ml PO Q8H PRN PRN Reason: COUGH Piperacillin Sod/Tazobactam (Sod 2.25 gm/ Dextrose) 50 mls @ 100 mls/hr IVPB Q8H-IV [facility]; Protocol Last Admin: 07/08/20 17:12 Dose: 100 mls/hr Documented by: Sodium Chloride (Normal Saline -) 250 mls @ 3,000 mls/hr IV PRN PRN PRN Reason: Hypotension during Dialysis Stop: 07/08/20 08:20 Insulin Aspart (Novolog Vial Sliding Scale -) 1 vial SQ [facility]; Protocol Last Admin: 07/08/20 16:30 Dose: 4 units Documented by: Insulin Detemir (Levemir Vial) 30 units SQ HS [facility] Last Admin: 07/07/20 22:12 Dose: 30 units Documented by: Meclizine HCl (Antivert -) 12.5 mg PO Q6HPO [facility] Metoprolol Succinate (Toprol Xl -) 25 mg PO DAILY [facility] Last Admin: 07/08/20 09:09 Dose: 25 mg Documented by: Ondansetron HCl (Zofran Injection) 4 mg IVPUSH Q6H PRN PRN Reason: NAUSEA AND/OR VOMITING Pantoprazole Sodium (Protonix -) 20 mg PO DAILY [facility] Last Admin: 07/08/20 09:09 Dose: 20 mg Documented by: Sevelamer Carbonate (Renvela -) 800 mg PO TIDCM [facility] Last Admin: 07/08/20 16:31 Dose: 800 mg Documented by: Sodium Bicarbonate (Sodium Bicarbonate -) 650 mg PO BID [facility] Last Admin: 07/08/20 09:09 Dose: 650 mg Documented by: Zolpidem Tartrate (Ambien -) 5 mg PO HS PRN PRN Reason: INSOMNIA Last Admin: 07/07/20 22:12 Dose: 5 mg Documented by: - Objective Vital Signs: Vital Signs Temperature 98.3 F 07/08/20 14:17 Pulse Rate 84 07/08/20 16:04 Respiratory Rate 20 07/08/20 14:17 Blood Pressure 157/72 07/08/20 16:04 O2 Sat by Pulse Oximetry (%) 92 L 07/08/20 14:17 Labs: CBC, BMP 07/08/20 17:23 07/08/20 17:23 Problem List - Problems (1) Cellulitis Code(s): L03.90 - CELLULITIS, UNSPECIFIED (2) Cough Code(s): R05 - COUGH (3) ESRF (end stage renal failure) Code(s): N18.6 - END STAGE RENAL DISEASE (4) Hypertension Code(s): I10 - ESSENTIAL (PRIMARY) HYPERTENSION Qualifiers: Hypertension type: essential hypertension Qualified Code(s): I10 - Essential (primary) hypertension (5) Diabetes Code(s): E11.9 - TYPE 2 DIABETES MELLITUS WITHOUT COMPLICATIONS (6) CHF (congestive heart failure) Code(s): I50.9 - HEART FAILURE, UNSPECIFIED (7) Diabetic neuropathy Code(s): E11.40 - TYPE 2 DIABETES MELLITUS WITH DIABETIC NEUROPATHY, UNSP (8) Hx of CABG Code(s): Z95.1 - PRESENCE OF AORTOCORONARY BYPASS GRAFT (9) CAD (coronary artery disease) Code(s): I25.10 - ATHSCL HEART DISEASE OF [place] CORONARY ARTERY W/O ANG PCTRS Qualifiers: Coronary Disease-Associated Artery/Lesion type: [place] artery [place] vs. t ransplanted heart: [place] heart Associated angina: without angina Qualified Code(s): I25.10 - Atherosclerotic heart disease of [place] coronary artery without angina pectoris (10) Hyperlipidemia Code(s): E78.5 - HYPERLIPIDEMIA, UNSPECIFIED Qualifiers: Hyperlipidemia type: pure hypercholesterolemia Qualified Code(s): E78.00 - Pure hypercholesterolemia, unspecified; E78.0 - Pure hypercholesterolemia (11) PVD (peripheral vascular disease) Code(s): I73.9 - PERIPHERAL VASCULAR DISEASE, UNSPECIFIED
[2020-07-08] MEDS: INSULIN (LEVEMIR) 100 UNITS/ML UNITS SQ SCH (22:57)
[2020-07-08] MEDS: ZOLPIDEM TARTRATE 5 MG TABLET PO PRN (22:58)
[2020-07-08] MEDS: MECLIZINE HCL 12.5 MG TABLET PO SCH (22:59)
[2020-07-09] MEDS: PIPERACILLIN/TAZOB 2.25 GM 2.25 GM in DEXTROSE 5%-WATER - 50 ML IVPB SCH ×3 (01:26→17:25)
[2020-07-09] MEDS: MECLIZINE HCL 12.5 MG TABLET PO SCH ×3 (06:04→17:25)
[2020-07-09] MEDS: INSULIN SLIDING SCALE (NOVOLOG) 1 VIAL SQ SCH ×4 (06:15→22:32)
--- NOTE | 2020-07-09 07:11 | PN ---
Progress Note, Physician - Current Medication List Current Medications: Active Medications Acetaminophen (Tylenol -) 650 mg PO Q4H PRN PRN Reason: FEVER Albuterol/Ipratropium (Duoneb -) 1 amp NEB Q6H PRN PRN Reason: WHEEZING Amlodipine Besylate (Norvasc -) 5 mg PO DAILY [facility] Last Admin: 07/08/20 09:09 Dose: 5 mg Documented by: Aspirin (Ecotrin -) 81 mg PO DAILY [facility] Last Admin: 07/08/20 09:09 Dose: 81 mg Documented by: Doxycycline Hyclate (Vibramycin -) 100 mg PO BID@1000,1800 [facility] Last Admin: 07/08/20 17:13 Dose: 100 mg Documented by: Duloxetine HCl (Cymbalta -) 40 mg PO DAILY [facility] Last Admin: 07/08/20 09:09 Dose: 40 mg Documented by: Gabapentin (Neurontin -) 100 mg PO BID [facility] Last Admin: 07/08/20 22:58 Dose: 100 mg Documented by: Guaifenesin (Robitussin -) 5 ml PO Q8H PRN PRN Reason: COUGH Piperacillin Sod/Tazobactam (Sod 2.25 gm/ Dextrose) 50 mls @ 100 mls/hr IVPB Q8H-IV [facility]; Protocol Last Admin: 07/09/20 01:26 Dose: 100 mls/hr Documented by: Sodium Chloride (Normal Saline -) 250 mls @ 3,000 mls/hr IV PRN PRN PRN Reason: Hypotension during Dialysis Stop: 07/08/20 08:20 Insulin Aspart (Novolog Vial Sliding Scale -) 1 vial SQ [facility]; Protocol Last Admin: 07/09/20 06:15 Dose: 2 units Documented by: Insulin Detemir (Levemir Vial) 30 units SQ HS [facility] Last Admin: 07/08/20 22:57 Dose: 30 units Documented by: Meclizine HCl (Antivert -) 12.5 mg PO Q6HPO [facility] Last Admin: 07/09/20 06:04 Dose: 12.5 mg Documented by: Metoprolol Succinate (Toprol Xl -) 25 mg PO DAILY [facility] Last Admin: 07/08/20 09:09 Dose: 25 mg Documented by: Ondansetron HCl (Zofran Injection) 4 mg IVPUSH Q6H PRN PRN Reason: NAUSEA AND/OR VOMITING Pantoprazole Sodium (Protonix -) 20 mg PO DAILY [facility] Last Admin: 07/08/20 09:09 Dose: 20 mg Documented by: Sevelamer Carbonate (Renvela -) 800 mg PO TIDCM [facility] Last Admin: 07/08/20 16:31 Dose: 800 mg Documented by: Sodium Bicarbonate (Sodium Bicarbonate -) 650 mg PO BID [facility] Last Admin: 07/08/20 22:58 Dose: 650 mg Documented by: Zolpidem Tartrate (Ambien -) 5 mg PO HS PRN PRN Reason: INSOMNIA Last Admin: 07/08/20 22:58 Dose: 5 mg Documented by: - Objective Vital Signs: Vital Signs Temperature 97.9 F 07/09/20 06:00 Pulse Rate 70 07/09/20 06:00 Respiratory Rate 20 07/09/20 06:00 Blood Pressure 151/69 07/09/20 06:00 O2 Sat by Pulse Oximetry (%) 89 L 07/09/20 06:00 Labs: CBC, BMP 07/08/20 17:23 07/08/20 17:23 Problem List - Problems (1) Cellulitis Code(s): L03.90 - CELLULITIS, UNSPECIFIED (2) Cough Code(s): R05 - COUGH (3) Diabetes Code(s): E11.9 - TYPE 2 DIABETES MELLITUS WITHOUT COMPLICATIONS (4) Atrial fibrillation Code(s): I48.91 - UNSPECIFIED ATRIAL FIBRILLATION (5) CHF (congestive heart failure) Code(s): I50.9 - HEART FAILURE, UNSPECIFIED (6) Diabetic foot infection Code(s): E11.628 - TYPE 2 DIABETES MELLITUS WITH OTHER SKIN COMPLICATIONS; L08.9 - LOCAL INFECTION OF THE SKIN AND SUBCUTANEOUS TISSUE, UNSP (7) Foot ulcer Code(s): L97.509 - NON-PRESSURE CHRONIC ULCER OTH PRT UNSP FOOT W UNSP SEVERITY (8) Hx of CABG Code(s): Z95.1 - PRESENCE OF AORTOCORONARY BYPASS GRAFT (9) PAD (peripheral artery disease) Code(s): I73.9 - PERIPHERAL VASCULAR DISEASE, UNSPECIFIED (10) Hyperlipidemia Code(s): E78.5 - HYPERLIPIDEMIA, UNSPECIFIED Qualifiers: Hyperlipidemia type: pure hypercholesterolemia Qualified Code(s): E78.00 - Pure hypercholesterolemia, unspecified; E78.0 - Pure hypercholesterolemia (11) Hypertension Code(s): I10 - ESSENTIAL (PRIMARY) HYPERTENSION Qualifiers: Hypertension type: essential hypertension Qualified Code(s): I10 - Essential (primary) hypertension (12) PVD (peripheral vascular disease) Code(s): I73.9 - PERIPHERAL VASCULAR DISEASE, UNSPECIFIED Assessment/Plan IMP COUGH LEFT PLEURAL EFFUSION ?INFECTIOUS,? CHF,? MALIGNANT MEDIASTINAL ADENOPATHY LIKELY REACTIVE DIASTOLIC HF LLE CELLULITIS ASHD S/P CABG H/O AFLUTTER S/P ABLATION CKD PAD DM HTN ANEMIA H/O TIAs PLAN INHALED BRONCHODILATORS ABX PER ID ANTI-TUSSIVES THORACENTESIS ON FRIDAY F/U CHEST X-RAY TODAY hold ELIQUIS on Friday MONITOR LYTES,RENAL FUNCTION,H+H HD PER RENAL F/U CHEST CT OUTPATIENT DR ELIAS Problem List - Problems (1) Cellulitis Code(s): L03.90 - CELLULITIS, UNSPECIFIED (2) Cough Code(s): R05 - COUGH (3) Diabetes Code(s): E11.9 - TYPE 2 DIABETES MELLITUS WITHOUT COMPLICATIONS (4) Atrial fibrillation Code(s): I48.91 - UNSPECIFIED ATRIAL FIBRILLATION (5) CHF (congestive heart failure) Code(s): I50.9 - HEART FAILURE, UNSPECIFIED (6) Diabetic foot infection Code(s): E11.628 - TYPE 2 DIABETES MELLITUS WITH OTHER SKIN COMPLICATIONS; L08.9 - LOCAL INFECTION OF THE SKIN AND SUBCUTANEOUS TISSUE, UNSP (7) Foot ulcer Code(s): L97.509 - NON-PRESSURE CHRONIC ULCER OTH PRT UNSP FOOT W UNSP SEVERITY (8) Hx of CABG Code(s): Z95.1 - PRESENCE OF AORTOCORONARY BYPASS GRAFT (9) PAD (peripheral artery disease) Code(s): I73.9 - PERIPHERAL VASCULAR DISEASE, UNSPECIFIED (10) Hyperlipidemia Code(s): E78.5 - HYPERLIPIDEMIA, UNSPECIFIED Qualifiers: Hyperlipidemia type: pure hypercholesterolemia Qualified Code(s): E78.00 - Pure hypercholesterolemia, unspecified; E78.0 - Pure hypercholesterolemia (11) Hypertension Code(s): I10 - ESSENTIAL (PRIMARY) HYPERTENSION Qualifiers: Hypertension type: essential hypertension Qualified Code(s): I10 - Essential (primary) hypertension (12) PVD (peripheral vascular disease) Code(s): I73.9 - PERIPHERAL VASCULAR DISEASE, UNSPECIFIED
--- NOTE | 2020-07-09 07:11 | PN ---
Progress Note, Physician History of Present Illness: PULMONARY ALERT,COMFORTABLE,-SOB,-CP,LESS COUGH. CHEST X-RAY -CHANGE - Current Medication List Current Medications: Active Medications Acetaminophen (Tylenol -) 650 mg PO Q4H PRN PRN Reason: FEVER Albuterol/Ipratropium (Duoneb -) 1 amp NEB Q6H PRN PRN Reason: WHEEZING Amlodipine Besylate (Norvasc -) 5 mg PO DAILY [facility] Last Admin: 07/08/20 09:09 Dose: 5 mg Documented by: Aspirin (Ecotrin -) 81 mg PO DAILY [facility] Last Admin: 07/08/20 09:09 Dose: 81 mg Documented by: Doxycycline Hyclate (Vibramycin -) 100 mg PO BID@1000,1800 [facility] Last Admin: 07/08/20 17:13 Dose: 100 mg Documented by: Duloxetine HCl (Cymbalta -) 40 mg PO DAILY [facility] Last Admin: 07/08/20 09:09 Dose: 40 mg Documented by: Gabapentin (Neurontin -) 100 mg PO BID [facility] Last Admin: 07/08/20 22:58 Dose: 100 mg Documented by: Guaifenesin (Robitussin -) 5 ml PO Q8H PRN PRN Reason: COUGH Piperacillin Sod/Tazobactam (Sod 2.25 gm/ Dextrose) 50 mls @ 100 mls/hr IVPB Q8H-IV [facility]; Protocol Last Admin: 07/09/20 01:26 Dose: 100 mls/hr Documented by: Sodium Chloride (Normal Saline -) 250 mls @ 3,000 mls/hr IV PRN PRN PRN Reason: Hypotension during Dialysis Stop: 07/08/20 08:20 Insulin Aspart (Novolog Vial Sliding Scale -) 1 vial SQ ACHS [facility]; Protocol Last Admin: 07/09/20 06:15 Dose: 2 units Documented by: Insulin Detemir (Levemir Vial) 30 units SQ HS [facility] Last Admin: 07/08/20 22:57 Dose: 30 units Documented by: Meclizine HCl (Antivert -) 12.5 mg PO Q6HPO [facility] Last Admin: 07/09/20 06:04 Dose: 12.5 mg Documented by: Metoprolol Succinate (Toprol Xl -) 25 mg PO DAILY [facility] Last Admin: 07/08/20 09:09 Dose: 25 mg Documented by: Ondansetron HCl (Zofran Injection) 4 mg IVPUSH Q6H PRN PRN Reason: NAUSEA AND/OR VOMITING Pantoprazole Sodium (Protonix -) 20 mg PO DAILY [facility] Last Admin: 07/08/20 09:09 Dose: 20 mg Documented by: Sevelamer Carbonate (Renvela -) 800 mg PO TIDCM [facility] Last Admin: 07/08/20 16:31 Dose: 800 mg Documented by: Sodium Bicarbonate (Sodium Bicarbonate -) 650 mg PO BID [facility] Last Admin: 07/08/20 22:58 Dose: 650 mg Documented by: Zolpidem Tartrate (Ambien -) 5 mg PO HS PRN PRN Reason: INSOMNIA Last Admin: 07/08/20 22:58 Dose: 5 mg Documented by: - Objective Vital Signs: Vital Signs Temperature 97.9 F 07/09/20 06:00 Pulse Rate 70 07/09/20 06:00 Respiratory Rate 20 07/09/20 06:00 Blood Pressure 151/69 07/09/20 06:00 O2 Sat by Pulse Oximetry (%) 89 L 07/09/20 06:00 Constitutional: Yes: Well Nourished, Calm Eyes: Yes: WNL HENT: Yes: WNL Neck: Yes: WNL Cardiovascular: Yes: Regular Rate and Rhythm, S1, S2 Respiratory: Yes: CTA Bilaterally Gastrointestinal: Yes: Normal Bowel Sounds, Soft Extremities: Yes: WNL Edema: No Labs: CBC, BMP Problem List - Problems (1) Cellulitis Code(s): L03.90 - CELLULITIS, UNSPECIFIED (2) Cough Code(s): R05 - COUGH (3) Diabetes Code(s): E11.9 - TYPE 2 DIABETES MELLITUS WITHOUT COMPLICATIONS (4) Atrial fibrillation Code(s): I48.91 - UNSPECIFIED ATRIAL FIBRILLATION (5) CHF (congestive heart failure) Code(s): I50.9 - HEART FAILURE, UNSPECIFIED (6) Diabetic foot infection Code(s): E11.628 - TYPE 2 DIABETES MELLITUS WITH OTHER SKIN COMPLICATIONS; L08.9 - LOCAL INFECTION OF THE SKIN AND SUBCUTANEOUS TISSUE, UNSP (7) Foot ulcer Code(s): L97.509 - NON-PRESSURE CHRONIC ULCER OTH PRT UNSP FOOT W UNSP SEVERITY (8) Hx of CABG Code(s): Z95.1 - PRESENCE OF AORTOCORONARY BYPASS GRAFT (9) PAD (peripheral artery disease) Code(s): I73.9 - PERIPHERAL VASCULAR DISEASE, UNSPECIFIED (10) Hyperlipidemia Code(s): E78.5 - HYPERLIPIDEMIA, UNSPECIFIED Qualifiers: Hyperlipidemia type: pure hypercholesterolemia Qualified Code(s): E78.00 - Pure hypercholesterolemia, unspecified; E78.0 - Pure hypercholesterolemia (11) Hypertension Code(s): I10 - ESSENTIAL (PRIMARY) HYPERTENSION Qualifiers: Hypertension type: essential hypertension Qualified Code(s): I10 - Essential (primary) hypertension (12) PVD (peripheral vascular disease) Code(s): I73.9 - PERIPHERAL VASCULAR DISEASE, UNSPECIFIED Assessment/Plan IMP COUGH LEFT PLEURAL EFFUSION ?INFECTIOUS,? CHF,? MALIGNANT MEDIASTINAL ADENOPATHY LIKELY REACTIVE DIASTOLIC HF LLE CELLULITIS ASHD S/P CABG H/O AFLUTTER S/P ABLATION CKD PAD DM HTN ANEMIA H/O TIAs PLAN INHALED BRONCHODILATORS ABX PER ID ANTI-TUSSIVES THORACENTESIS ON FRIDAY F/U CHEST X-RAY TODAY hold [employer] MONITOR LYTES,RENAL FUNCTION,H+H HD PER RENAL F/U CHEST CT OUTPATIENT IV [facility]PARIN DR ELIAS Problem List - Problems (1) Cellulitis Code(s): L03.90 - CELLULITIS, UNSPECIFIED (2) Cough Code(s): R05 - COUGH (3) Diabetes Code(s): E11.9 - TYPE 2 DIABETES MELLITUS WITHOUT COMPLICATIONS (4) Atrial fibrillation Code(s): I48.91 - UNSPECIFIED ATRIAL FIBRILLATION (5) CHF (congestive heart failure) Code(s): I50.9 - HEART FAILURE, UNSPECIFIED (6) Diabetic foot infection Code(s): E11.628 - TYPE 2 DIABETES MELLITUS WITH OTHER SKIN COMPLICATIONS; L08.9 - LOCAL INFECTION OF THE SKIN AND SUBCUTANEOUS TISSUE, UNSP (7) Foot ulcer Code(s): L97.509 - NON-PRESSURE CHRONIC ULCER OTH PRT UNSP FOOT W UNSP SEVERITY (8) Hx of CABG Code(s): Z95.1 - PRESENCE OF AORTOCORONARY BYPASS GRAFT (9) PAD (peripheral artery disease) Code(s): I73.9 - PERIPHERAL VASCULAR DISEASE, UNSPECIFIED (10) Hyperlipidemia Code(s): E78.5 - HYPERLIPIDEMIA, UNSPECIFIED Qualifiers: Hyperlipidemia type: pure hypercholesterolemia Qualified Code(s): E78.00 - Pure hypercholesterolemia, unspecified; E78.0 - Pure hypercholesterolemia (11) Hypertension Code(s): I10 - ESSENTIAL (PRIMARY) HYPERTENSION Qualifiers: Hypertension type: essential hypertension Qualified Code(s): I10 - Essential (primary) hypertension (12) PVD (peripheral vascular disease) Code(s): I73.9 - PERIPHERAL VASCULAR DISEASE, UNSPECIFIED
[2020-07-09 07:33] LABS: BASO % 0.7 % (0-2.0); EOS % 2.6 % (0-4.5); HEMOGLOBIN 8.4 GM/dL (11.7-16.9); LYMPH % 13.8 % (8-40); MCH 26.9 pg (25.7-33.7); MCHC 32.2 g/dl (32.0-35.9); MEAN CELL VOLUME 83.6 fl (80-96); MEAN PLT VOLUME 8.1 fl (7.5-11.1); MONO % 6.3 % (3.8-10.2); NEUT % 76.6 % (42.8-82.8); PLATELET COUNT 380 K/MM3 (134-434); RBC 3.11 M/mm3 (4.00-5.60); RDW 15.1 % (11.9-15.9); WHITE BLOOD COUNT 9.3 K/mm3 (4.0-10.0)
[2020-07-09 07:59] LABS: BLOOD UREA NITROGEN 39.7 mg/dL (7-18); CALCIUM 7.6 mg/dL (8.5-10.1); MAGNESIUM 1.7 mg/dL (1.8-2.4); PHOSPHOROUS 4.1 mg/dL (2.5-4.9)
[2020-07-09] MEDS ORDERED: DEXTROSE 5%-WATER - 50 ML IVPB ONE ×2 (10:14→16:42)
[2020-07-09] MEDS ORDERED: PIPERACILLIN/TAZOBACTAM 2.25 GM VIAL IVPB ONE ×2 (10:14→16:42)
[2020-07-09] MEDS ORDERED: HEPARIN NA (PORCINE) 5,000 UNITS/ML 1ML VIAL IVPUSH PRN ×2 (10:22→11:29)
[2020-07-09] MEDS: metoPROLOL SUCCINATE 25 MG TAB.SR.24H (FP) PO SCH (10:39)
[2020-07-09] MEDS: amLODIPine BESYLATE 5 MG TABLET (FP) PO SCH (10:39)
[2020-07-09] MEDS: DOXYCYCLINE HYCLATE 100 MG CAPSULE PO SCH ×2 (10:39→17:25)
[2020-07-09] MEDS: SODIUM BICARBONATE 650 MG TABLET PO SCH ×2 (10:39→22:33)
[2020-07-09] MEDS: PANTOPRAZOLE 20 MG TABLET PO SCH (10:39)
[2020-07-09] MEDS: GABAPENTIN 100 MG CAPSULE PO SCH ×2 (10:40→22:33)
[2020-07-09] MEDS: SEVELAMER CARBONATE 800 MG TAB (FP) PO SCH ×3 (10:40→17:25)
--- NOTE | 2020-07-09 11:21 | PN ---
Progress Note, Physician Chief Complaint: Weakness History of Present Illness: Seen and examined at the bedside awake and alert denies any dizziness today denies any CP, shortness of breath, palpitations making urine - Current Medication List Current Medications: Active Medications Acetaminophen (Tylenol -) 650 mg PO Q4H PRN PRN Reason: FEVER Albuterol/Ipratropium (Duoneb -) 1 amp NEB Q6H PRN PRN Reason: WHEEZING Amlodipine Besylate (Norvasc -) 5 mg PO DAILY [facility] Last Admin: 07/09/20 10:39 Dose: 5 mg Documented by: Amlodipine Besylate (Norvasc -) 5 mg PO ONCE ONE Stop: 07/09/20 11:18 Aspirin (Ecotrin -) 81 mg PO DAILY [facility] Last Admin: 07/08/20 09:09 Dose: 81 mg Documented by: Doxycycline Hyclate (Vibramycin -) 100 mg PO BID@1000,1800 [facility] Last Admin: 07/09/20 10:39 Dose: 100 mg Documented by: Duloxetine HCl (Cymbalta -) 40 mg PO DAILY [facility] Last Admin: 07/08/20 09:09 Dose: 40 mg Documented by: Gabapentin (Neurontin -) 100 mg PO BID [facility] Last Admin: 07/09/20 10:40 Dose: 100 mg Documented by: Guaifenesin (Robitussin -) 5 ml PO Q8H PRN PRN Reason: COUGH Heparin Sodium (Porcine) (Heparin -) 1,000 unit IVPUSH PRN PRN PRN Reason: Heparin Piperacillin Sod/Tazobactam (Sod 2.25 gm/ Dextrose) 50 mls @ 100 mls/hr IVPB Q8H-IV [facility]; Protocol Last Admin: 07/09/20 10:40 Dose: 100 mls/hr Documented by: Sodium Chloride (Normal Saline -) 250 mls @ 3,000 mls/hr IV PRN PRN PRN Reason: Hypotension during Dialysis Stop: 07/08/20 08:20 Insulin Aspart (Novolog Vial Sliding Scale -) 1 vial SQ ACHS [facility]; Protocol Last Admin: 07/09/20 06:15 Dose: 2 units Documented by: Insulin Detemir (Levemir Vial) 30 units SQ HS [facility] Last Admin: 07/08/20 22:57 Dose: 30 units Documented by: Meclizine HCl (Antivert -) 12.5 mg PO Q6HPO [facility] Last Admin: 07/09/20 06:04 Dose: 12.5 mg Documented by: Metoprolol Succinate (Toprol Xl -) 25 mg PO DAILY [facility] Last Admin: 07/09/20 10:39 Dose: 25 mg Documented by: Ondansetron HCl (Zofran Injection) 4 mg IVPUSH Q6H PRN PRN Reason: NAUSEA AND/OR VOMITING Pantoprazole Sodium (Protonix -) 20 mg PO DAILY [facility] Last Admin: 07/09/20 10:39 Dose: 20 mg Documented by: Sevelamer Carbonate (Renvela -) 800 mg PO TIDCM [facility] Last Admin: 07/09/20 10:40 Dose: 800 mg Documented by: Sodium Bicarbonate (Sodium Bicarbonate -) 650 mg PO BID [facility] Last Admin: 07/09/20 10:39 Dose: 650 mg Documented by: Zolpidem Tartrate (Ambien -) 5 mg PO HS PRN PRN Reason: INSOMNIA Last Admin: 07/08/20 22:58 Dose: 5 mg Documented by: - Objective Vital Signs: Vital Signs Temperature 98.8 F 07/09/20 10:00 Pulse Rate 80 07/09/20 10:00 Respiratory Rate 20 07/09/20 10:00 Blood Pressure 183/79 H 07/09/20 10:00 O2 Sat by Pulse Oximetry (%) 93 L 07/09/20 10:00 Constitutional: Yes: No Distress HENT: Yes: Atraumatic Neck: Yes: Supple Cardiovascular: Yes: Regular Rate and Rhythm Respiratory: Yes: Regular, Diminished. No: Rales, Rhonchi Gastrointestinal: Yes: Soft Extremities: No: Cyanosis Edema: Yes Edema: LLE: Trace, RLE: Trace Neurological: Yes: Alert, Oriented Labs: CBC, BMP 07/09/20 06:20 07/09/20 06:20 Assessment/Plan 70 year old male with history of CKD stage 4/5, IDDM, hypertension, hyperlipidemia, BOBY, CHF, Aflutter, PVD who presented from home with a fall and generalized weakness and noted to have left lower extremity cellulitis with leukocytosis/WBC of 20k and Cr of 4.5. 1. Lower extremity cellulitis/ non-healing wound. 2. CKD stage 5 now ESRD on HD 3. Anemia 4. Hx of CHF w/o evidence of acute exacerbation 5. Hypertension 6. Hyperlipidemia 7. Pleural effusion 8. Dizziness r/o orthostatic hypotension vs. vertigo next planned dialysis is tomorrow, will attempt more UF to see if we can decrease size of pleural effusion forms submitted for outpatient dialysis placement, awaiting confirmation. dizziness improved with meclazine recheck orthostatics today BP elevated, increase amlodipine to 10mg check CBC today to r/o worsening anemia as contributor to dizziness. Continue antibiotics for LE cellulitis may need antibiotics on discharge depending on extent of soft tissue wound. Imaging studies showed no abcess or collection Renal diet Thank you Jonah Painting DO
[2020-07-09] MEDS: ASPIRIN COATED 81 MG TABLET.EC PO SCH (11:33)
[2020-07-09] MEDS ORDERED: PT OWN MED DRAWER 7, Y5N ONE ×2 (11:42→22:34)
[2020-07-09] MEDS: DULoxetine HCL 20 MG CAPSULE.DR PO SCH (11:43)
[2020-07-09] MEDS ORDERED: amLODIPine BESYLATE 5 MG TABLET (FP) PO ONE (11:45)
[2020-07-09] MEDS: HEPARIN SOD,PORK IN 0.45% NACL 25,000 UNITS/500 ML INFUS.BAG IVPB SCH (12:53)
--- NOTE | 2020-07-09 14:38 | PN ---
Progress Note (short form) - Note Progress Note: Podiatry F/U: Seen/evaluated at bedside NAD. Pain controlled, denies F/V/N/C/SOB/CP. AFebrile. Feels less pain to the left foot. S/p permacath placement for dialysis access. [place]OREY: L foot: Pedal pulses weakly palpable, TG wnl, CFT brisk to all digits. There is a left midfoot diabetic ulcer with exposed styloid process of fifth metatarsal. Underlying fibrotic base with some eschar noted. Serosanguinous drainage present. No deep purulence, no fluctuance, no soft tissue crepitus, no streaking ascending cellulitis, no signs of active infection. Resolved periwound cellulitis. Wound Cx: MRSA, enterobacter Imp: 70 year old diabetic male with left foot styloid process diabetic ulcer 1. IV abx per ID 2. Plan for IV vancomycin and ceftazidine post-HD for treatment of osteomyelitis 3. Will continue packing. Will need home services for local wound care 4. Will follow
--- NOTE | 2020-07-09 15:36 | PN ---
Progress Note, Physician History of Present Illness: for possible thoracentesis on friday eliquis/asa on hold on iv heparin - Current Medication List Current Medications: Active Medications Acetaminophen (Tylenol -) 650 mg PO Q4H PRN PRN Reason: FEVER Albuterol/Ipratropium (Duoneb -) 1 amp NEB Q6H PRN PRN Reason: WHEEZING Amlodipine Besylate (Norvasc -) 5 mg PO DAILY [facility] Last Admin: 07/09/20 10:39 Dose: 5 mg Documented by: Doxycycline Hyclate (Vibramycin -) 100 mg PO BID@1000,1800 [facility] Last Admin: 07/09/20 10:39 Dose: 100 mg Documented by: Duloxetine HCl (Cymbalta -) 40 mg PO DAILY [facility] Last Admin: 07/09/20 11:43 Dose: 40 mg Documented by: Epoetin Errol (Procrit -) 20,000 unit IVPUSH ONCE ONE Stop: 07/10/20 06:01 Gabapentin (Neurontin -) 100 mg PO BID [facility] Last Admin: 07/09/20 10:40 Dose: 100 mg Documented by: Guaifenesin (Robitussin -) 5 ml PO Q8H PRN PRN Reason: COUGH Heparin Sodium (Porcine) (Heparin -) 1,000 unit IVPUSH PRN PRN PRN Reason: Heparin Heparin Sodium (Porcine) (Heparin -) 5,000 unit IVPUSH PRN PRN PRN Reason: Heparin Piperacillin Sod/Tazobactam (Sod 2.25 gm/ Dextrose) 50 mls @ 100 mls/hr IVPB Q8H-IV [facility]; Protocol Last Admin: 07/09/20 10:40 Dose: 100 mls/hr Documented by: Sodium Chloride (Normal Saline -) 250 mls @ 3,000 mls/hr IV PRN PRN PRN Reason: Hypotension during Dialysis Stop: 07/10/20 11:21 HEPARIN SOD,PORK IN 0.45% NACL (Heparin-1/2ns 25,000 Units/500) 25,000 units in 500 mls @ 20 mls/hr IVPB TITR [facility]; Protocol Last Admin: 07/09/20 12:53 Dose: 1,000 units/hr, 20 mls/hr Documented by: Insulin Aspart (Novolog Vial Sliding Scale -) 1 vial SQ ACHS [facility]; Protocol Last Admin: 07/09/20 11:39 Dose: 6 units Documented by: Insulin Detemir (Levemir Vial) 30 units SQ HS [facility] Last Admin: 07/08/20 22:57 Dose: 30 units Documented by: Meclizine HCl (Antivert -) 12.5 mg PO Q6HPO [facility] Last Admin: 07/09/20 11:43 Dose: 12.5 mg Documented by: Metoprolol Succinate (Toprol Xl -) 25 mg PO DAILY [facility] Last Admin: 07/09/20 10:39 Dose: 25 mg Documented by: Ondansetron HCl (Zofran Injection) 4 mg IVPUSH Q6H PRN PRN Reason: NAUSEA AND/OR VOMITING Pantoprazole Sodium (Protonix -) 20 mg PO DAILY [facility] Last Admin: 07/09/20 10:39 Dose: 20 mg Documented by: Sevelamer Carbonate (Renvela -) 800 mg PO TIDCM [facility] Last Admin: 07/09/20 11:45 Dose: 800 mg Documented by: Sodium Bicarbonate (Sodium Bicarbonate -) 650 mg PO BID [facility] Last Admin: 07/09/20 10:39 Dose: 650 mg Documented by: Zolpidem Tartrate (Ambien -) 5 mg PO HS PRN PRN Reason: INSOMNIA Last Admin: 07/08/20 22:58 Dose: 5 mg Documented by: - Objective Vital Signs: Vital Signs Temperature 98.3 F 07/09/20 13:51 Pulse Rate 72 07/09/20 13:51 Respiratory Rate 20 07/09/20 13:51 Blood Pressure 156/63 07/09/20 13:51 O2 Sat by Pulse Oximetry (%) 94 L 07/09/20 13:51 Constitutional: Yes: No Distress HENT: Yes: Atraumatic Neck: Yes: Supple Cardiovascular: Yes: Pulse Irregular Respiratory: Yes: Rhonchi Gastrointestinal: Yes: Normal Bowel Sounds Extremities: Yes: Other (llex wound in dressing) Neurological: Yes: Alert, Oriented Labs: CBC, BMP 07/09/20 06:20 07/09/20 06:20 Problem List - Problems (1) Cellulitis Assessment/Plan: iv abx improving wound care dressing change Code(s): L03.90 - CELLULITIS, UNSPECIFIED (2) Diabetes Assessment/Plan: on insulin bgms Code(s): E11.9 - TYPE 2 DIABETES MELLITUS WITHOUT COMPLICATIONS (3) ARF (acute renal failure) Assessment/Plan: ON DIALYSIS NOW Code(s): N17.9 - ACUTE KIDNEY FAILURE, UNSPECIFIED (4) Hx of CABG Code(s): Z95.1 - PRESENCE OF AORTOCORONARY BYPASS GRAFT (5) PAD (peripheral artery disease) Code(s): I73.9 - PERIPHERAL VASCULAR DISEASE, UNSPECIFIED (6) Hypertension Assessment/Plan: on meds monitor Code(s): I10 - ESSENTIAL (PRIMARY) HYPERTENSION Qualifiers: Hypertension type: essential hypertension Qualified Code(s): I10 - Essential (primary) hypertension (7) Atrial fibrillation Assessment/Plan: on iv heparin now Code(s): I48.91 - UNSPECIFIED ATRIAL FIBRILLATION (8) Hyperlipidemia Code(s): E78.5 - HYPERLIPIDEMIA, UNSPECIFIED Qualifiers: Hyperlipidemia type: pure hypercholesterolemia Qualified Code(s): E78.00 - Pure hypercholesterolemia, unspecified; E78.0 - Pure hypercholesterolemia (9) ESRF (end stage renal failure) Code(s): N18.6 - END STAGE RENAL DISEASE (10) PVD (peripheral vascular disease) Code(s): I73.9 - PERIPHERAL VASCULAR DISEASE, UNSPECIFIED Assessment/Plan COVERING FOR DR ADAL BRUCE
[2020-07-09] MEDS: HEPARIN NA (PORCINE) 5,000 UNITS/ML 1ML VIAL IVPUSH PRN (19:44)
[2020-07-09] MEDS: INSULIN (LEVEMIR) 100 UNITS/ML UNITS SQ SCH (22:32)
[2020-07-09] MEDS: ZOLPIDEM TARTRATE 5 MG TABLET PO PRN (22:33)
[2020-07-09] MEDS ORDERED: INSULIN (NOVOLOG) ASPART 100 UNITS/ML 10ML VIAL ONE (22:44)
[2020-07-10] MEDS: MECLIZINE HCL 12.5 MG TABLET PO SCH ×2 (00:50→05:51)
[2020-07-10] MEDS ORDERED: DEXTROSE 5%-WATER - 50 ML IVPB ONE ×3 (01:33→16:10)
[2020-07-10] MEDS ORDERED: PIPERACILLIN/TAZOBACTAM 2.25 GM VIAL IVPB ONE ×3 (01:33→16:09)
[2020-07-10] MEDS: PIPERACILLIN/TAZOB 2.25 GM 2.25 GM in DEXTROSE 5%-WATER - 50 ML IVPB SCH ×3 (01:44→17:08)
[2020-07-10 02:27] LABS: INR 1.17 (0.83-1.09); PROTHROMBIN TIME (PATIENT) 13.8 SEC (9.7-13.0)
[2020-07-10 02:30] LABS: ACTIVATED PTT 39.4 SECONDS (25.2-36.5)
[2020-07-10] MEDS: HEPARIN NA (PORCINE) 5,000 UNITS/ML 1ML VIAL IVPUSH PRN ×2 (02:44→21:59)
[2020-07-10] MEDS: INSULIN SLIDING SCALE (NOVOLOG) 1 VIAL SQ SCH ×4 (06:08→22:01)
[2020-07-10] MEDS ORDERED: INSULIN (NOVOLOG) ASPART 100 UNITS/ML 10ML VIAL ONE (08:40)
[2020-07-10] MEDS: DOXYCYCLINE HYCLATE 100 MG CAPSULE PO SCH ×2 (09:17→17:09)
[2020-07-10] MEDS: SEVELAMER CARBONATE 800 MG TAB (FP) PO SCH ×3 (09:17→17:25)
[2020-07-10] MEDS: amLODIPine BESYLATE 5 MG TABLET (FP) PO SCH (09:17)
[2020-07-10] MEDS: PANTOPRAZOLE 20 MG TABLET PO SCH (09:17)
[2020-07-10] MEDS: metoPROLOL SUCCINATE 25 MG TAB.SR.24H (FP) PO SCH (09:18)
[2020-07-10] MEDS: DULoxetine HCL 20 MG CAPSULE.DR PO SCH (09:18)
[2020-07-10] MEDS: SODIUM BICARBONATE 650 MG TABLET PO SCH ×2 (09:18→21:59)
[2020-07-10] MEDS: GABAPENTIN 100 MG CAPSULE PO SCH ×2 (09:19→22:00)
[2020-07-10] MEDS ORDERED: EPOETIN ALFA-EPBX 10,000 UNIT/ML VIAL IVPUSH ONE (10:00)
[2020-07-10] MEDS ORDERED: SODIUM CHLORIDE 250 ML IV PRN (10:00)
--- NOTE | 2020-07-10 10:03 | PN ---
Progress Note, Physician History of Present Illness: stable no new issues - Current Medication List Current Medications: Active Medications Acetaminophen (Tylenol -) 650 mg PO Q4H PRN PRN Reason: FEVER Albuterol/Ipratropium (Duoneb -) 1 amp NEB Q6H PRN PRN Reason: WHEEZING Amlodipine Besylate (Norvasc -) 5 mg PO DAILY [facility] Last Admin: 07/10/20 09:17 Dose: 5 mg Documented by: Doxycycline Hyclate (Vibramycin -) 100 mg PO BID@1000,1800 [facility] Last Admin: 07/10/20 09:17 Dose: 100 mg Documented by: Duloxetine HCl (Cymbalta -) 40 mg PO DAILY [facility] Last Admin: 07/10/20 09:18 Dose: 40 mg Documented by: Gabapentin (Neurontin -) 100 mg PO BID [facility] Last Admin: 07/10/20 09:19 Dose: 100 mg Documented by: Guaifenesin (Robitussin -) 5 ml PO Q8H PRN PRN Reason: COUGH Heparin Sodium (Porcine) (Heparin -) 1,000 unit IVPUSH PRN PRN PRN Reason: Heparin Heparin Sodium (Porcine) (Heparin -) 5,000 unit IVPUSH PRN PRN PRN Reason: Heparin Last Admin: 07/10/20 02:44 Dose: 5,000 unit Documented by: Piperacillin Sod/Tazobactam (Sod 2.25 gm/ Dextrose) 50 mls @ 100 mls/hr IVPB Q8H-IV [facility]; Protocol Last Admin: 07/10/20 09:16 Dose: 100 mls/hr Documented by: HEPARIN SOD,PORK IN 0.45% NACL (Heparin-1/2ns 25,000 Units/500) 25,000 units in 500 mls @ 20 mls/hr IVPB TITR [facility]; Protocol Last Titration: 07/10/20 02:44 Dose: 1,300 units/hr, 26 mls/hr Documented by: Insulin Aspart (Novolog Vial Sliding Scale -) 1 vial SQ ACHS [facility]; Protocol Last Admin: 07/10/20 06:08 Dose: Not Given Documented by: Insulin Detemir (Levemir Vial) 30 units SQ HS [facility] Last Admin: 07/09/20 22:32 Dose: 30 units Documented by: Meclizine HCl (Antivert -) 12.5 mg PO Q6HPO [facility] Last Admin: 07/10/20 05:51 Dose: 12.5 mg Documented by: Metoprolol Succinate (Toprol Xl -) 25 mg PO DAILY [facility] Last Admin: 07/10/20 09:18 Dose: 25 mg Documented by: Ondansetron HCl (Zofran Injection) 4 mg IVPUSH Q6H PRN PRN Reason: NAUSEA AND/OR VOMITING Pantoprazole Sodium (Protonix -) 20 mg PO DAILY [facility] Last Admin: 07/10/20 09:17 Dose: 20 mg Documented by: Senna (Senna -) 1 tab PO HS PRN PRN Reason: CONSTIPATION Sevelamer Carbonate (Renvela -) 800 mg PO TIDCM [facility] Last Admin: 07/10/20 09:17 Dose: 800 mg Documented by: Sodium Bicarbonate (Sodium Bicarbonate -) 650 mg PO BID [facility] Last Admin: 07/10/20 09:18 Dose: 650 mg Documented by: Zolpidem Tartrate (Ambien -) 5 mg PO HS PRN PRN Reason: INSOMNIA Last Admin: 07/09/20 22:33 Dose: 5 mg Documented by: - Objective Vital Signs: Vital Signs Temperature 97.5 F L 07/10/20 08:58 Pulse Rate 74 07/10/20 08:58 Respiratory Rate 20 07/10/20 08:58 Blood Pressure 145/82 07/10/20 08:58 O2 Sat by Pulse Oximetry (%) 94 L 07/10/20 08:58 Constitutional: Yes: No Distress, Calm Cardiovascular: Yes: S1, S2 Respiratory: Yes: Regular, CTA Bilaterally Gastrointestinal: Yes: Normal Bowel Sounds, Soft Musculoskeletal: Yes: WNL Extremities: Yes: WNL Neurological: Yes: Alert, Oriented Psychiatric: Yes: Alert, Oriented Labs: CBC, BMP 07/09/20 06:20 07/09/20 06:20 INR, PTT INR 1.17 (0.83-1.09) H 07/10/20 02:08 Assessment/Plan Problem List - Problems (1) Cellulitis Code(s): L03.90 - CELLULITIS, UNSPECIFIED (2) Diabetes Code(s): E11.9 - TYPE 2 DIABETES MELLITUS WITHOUT COMPLICATIONS (3) CHF (congestive heart failure) Code(s): I50.9 - HEART FAILURE, UNSPECIFIED (4) Diabetic neuropathy Code(s): E11.40 - TYPE 2 DIABETES MELLITUS WITH DIABETIC NEUROPATHY, UNSP (5) ESRF (end stage renal failure) Code(s): N18.6 - END STAGE RENAL DISEASE (6) Hx of CABG Code(s): Z95.1 - PRESENCE OF AORTOCORONARY BYPASS GRAFT (7) PAD (peripheral artery disease) Code(s): I73.9 - PERIPHERAL VASCULAR DISEASE, UNSPECIFIED (8) CAD (coronary artery disease) Code(s): I25.10 - ATHSCL HEART DISEASE OF [place] CORONARY ARTERY W/O ANG PCTRS Qualifiers: Coronary Disease-Associated Artery/Lesion type: [place] artery [place] vs. transplanted heart: [place] heart Associated angina: without angina Qualified Code(s): I25.10 - Atherosclerotic heart disease of [place] coronary artery without angina pectoris (9) Hyperlipidemia Code(s): E78.5 - HYPERLIPIDEMIA, UNSPECIFIED Qualifiers: Hyperlipidemia type: pure hypercholesterolemia Qualified Code(s): E78.00 - Pure hypercholesterolemia, unspecified; E78.0 - Pure hypercholesterolemia (10) Hypertension Code(s): I10 - ESSENTIAL (PRIMARY) HYPERTENSION Qualifiers: Hypertension type: essential hypertension Qualified Code(s): I10 - E ssential (primary) hypertension (11) PVD (peripheral vascular disease) Code(s): I73.9 - PERIPHERAL VASCULAR DISEASE, UNSPECIFIED Assessment/Plan LLE cellulitis/foot abscess - s/p drainage Diabetic foot ulcer Fever Leukocytosis Neuropathy PVD CAD s/p CABG CKD we can use vanco and cefatrzidine during dialysis will d/w nephro
--- NOTE | 2020-07-10 10:04 | PN ---
Progress Note (short form) - Note Progress Note: PULMONARY Denies shortness of breath, cough. No fevers. For HD today. Vital Signs Period Temp Pulse Resp BP Sys/Snow Pulse Ox Last 24 Hr 97.5 F-98.4 F 63-79 18-22 139-172/53-82 94-95 Gen: NAD at rest Heart: RRR Lung: decreased breath sounds at the bases Abd: soft, nontender Ext: no edema CBC, BMP 07/09/20 06:20 07/09/20 06:20 Active Medications Acetaminophen (Tylenol -) 650 mg PO Q4H PRN PRN Reason: FEVER Albuterol/Ipratropium (Duoneb -) 1 amp NEB Q6H PRN PRN Reason: WHEEZING Amlodipine Besylate (Norvasc -) 5 mg PO DAILY [facility] Last Admin: 07/10/20 09:17 Dose: 5 mg Documented by: Doxycycline Hyclate (Vibramycin -) 100 mg PO BID@1000,1800 [facility] Last Admin: 07/10/20 09:17 Dose: 100 mg Documented by: Duloxetine HCl (Cymbalta -) 40 mg PO DAILY [facility] Last Admin: 07/10/20 09:18 Dose: 40 mg Documented by: Gabapentin (Neurontin -) 100 mg PO BID [facility] Last Admin: 07/10/20 09:19 Dose: 100 mg Documented by: Guaifenesin (Robitussin -) 5 ml PO Q8H PRN PRN Reason: COUGH Heparin Sodium (Porcine) (Heparin -) 1,000 unit IVPUSH PRN PRN PRN Reason: Heparin Heparin Sodium (Porcine) (Heparin -) 5,000 unit IVPUSH PRN PRN PRN Reason: Heparin Last Admin: 07/10/20 02:44 Dose: 5,000 unit Documented by: Piperacillin Sod/Tazobactam (Sod 2.25 gm/ Dextrose) 50 mls @ 100 mls/hr IVPB Q8H-IV [facility]; Protocol Last Admin: 07/10/20 09:16 Dose: 100 mls/hr Documented by: HEPARIN SOD,PORK IN 0.45% NACL (Heparin-1/2ns 25,000 Units/500) 25,000 units in 500 mls @ 20 mls/hr IVPB TITR [facility]; Protocol Last Titration: 07/10/20 02:44 Dose: 1,300 units/hr, 26 mls/hr Documented by: Insulin Aspart (Novolog Vial Sliding Scale -) 1 vial SQ ACHS [facility]; Protocol Last Admin: 07/10/20 06:08 Dose: Not Given Documented by: Insulin Detemir (Levemir Vial) 30 units SQ HS [facility] Last Admin: 07/09/20 22:32 Dose: 30 units Documented by: Meclizine HCl (Antivert -) 12.5 mg PO Q6HPO [facility] Last Admin: 07/10/20 05:51 Dose: 12.5 mg Documented by: Metoprolol Succinate (Toprol Xl -) 25 mg PO DAILY [facility] Last Admin: 07/10/20 09:18 Dose: 25 mg Documented by: Ondansetron HCl (Zofran Injection) 4 mg IVPUSH Q6H PRN PRN Reason: NAUSEA AND/OR VOMITING Pantoprazole Sodium (Protonix -) 20 mg PO DAILY [facility] Last Admin: 07/10/20 09:17 Dose: 20 mg Documented by: Senna (Senna -) 1 tab PO HS PRN PRN Reason: CONSTIPATION Sevelamer Carbonate (Renvela -) 800 mg PO TIDCM [facility] Last Admin: 07/10/20 09:17 Dose: 800 mg Documented by: Sodium Bicarbonate (Sodium Bicarbonate -) 650 mg PO BID [facility] Last Admin: 07/10/20 09:18 Dose: 650 mg Documented by: Zolpidem Tartrate (Ambien -) 5 mg PO HS PRN PRN Reason: INSOMNIA Last Admin: 07/09/20 22:33 Dose: 5 mg Documented by: A/P Left Pleural Effusion Acute on Chronic Diastolic Heart Failure Cellulitis ESRD on HD CAD s/p CABG h/o Atrial Flutter PAD HTN DM Anemia - antibiotics per ID - HD per renal - repeat CXR in AM - if no improvement in effusion, for thoracentesis - DVT prophylaxis
--- NOTE | 2020-07-10 11:19 | PN ---
Progress Note, Physician Chief Complaint: Weakness History of Present Illness: Seen and examined at the bedside awake and alert no acute complaints denies any CP, shortness of breath, palpitations making urine for dialysis today - Current Medication List Current Medications: Active Medications Acetaminophen (Tylenol -) 650 mg PO Q4H PRN PRN Reason: FEVER Albuterol/Ipratropium (Duoneb -) 1 amp NEB Q6H PRN PRN Reason: WHEEZING Amlodipine Besylate (Norvasc -) 5 mg PO DAILY [facility] Last Admin: 07/10/20 09:17 Dose: 5 mg Documented by: Doxycycline Hyclate (Vibramycin -) 100 mg PO BID@1000,1800 [facility] Last Admin: 07/10/20 09:17 Dose: 100 mg Documented by: Duloxetine HCl (Cymbalta -) 40 mg PO DAILY [facility] Last Admin: 07/10/20 09:18 Dose: 40 mg Documented by: Gabapentin (Neurontin -) 100 mg PO BID [facility] Last Admin: 07/10/20 09:19 Dose: 100 mg Documented by: Guaifenesin (Robitussin -) 5 ml PO Q8H PRN PRN Reason: COUGH Heparin Sodium (Porcine) (Heparin -) 1,000 unit IVPUSH PRN PRN PRN Reason: Heparin Heparin Sodium (Porcine) (Heparin -) 5,000 unit IVPUSH PRN PRN PRN Reason: Heparin Last Admin: 07/10/20 02:44 Dose: 5,000 unit Documented by: Piperacillin Sod/Tazobactam (Sod 2.25 gm/ Dextrose) 50 mls @ 100 mls/hr IVPB Q8H-IV [facility]; Protocol Last Admin: 07/10/20 09:16 Dose: 100 mls/hr Documented by: HEPARIN SOD,PORK IN 0.45% NACL (Heparin-1/2ns 25,000 Units/500) 25,000 units in 500 mls @ 20 mls/hr IVPB TITR [facility]; Protocol Last Titration: 07/10/20 02:44 Dose: 1,300 units/hr, 26 mls/hr Documented by: Insulin Aspart (Novolog Vial Sliding Scale -) 1 vial SQ ACHS [facility]; Protocol Last Admin: 07/10/20 06:08 Dose: Not Given Documented by: Insulin Detemir (Levemir Vial) 30 units SQ HS [facility] Last Admin: 07/09/20 22:32 Dose: 30 units Documented by: Meclizine HCl (Antivert -) 12.5 mg PO Q6HPO [facility] Last Admin: 07/10/20 05:51 Dose: 12.5 mg Documented by: Metoprolol Succinate (Toprol Xl -) 25 mg PO DAILY [facility] Last Admin: 07/10/20 09:18 Dose: 25 mg Documented by: Ondansetron HCl (Zofran Injection) 4 mg IVPUSH Q6H PRN PRN Reason: NAUSEA AND/OR VOMITING Pantoprazole Sodium (Protonix -) 20 mg PO DAILY [facility] Last Admin: 07/10/20 09:17 Dose: 20 mg Documented by: Senna (Senna -) 1 tab PO HS PRN PRN Reason: CONSTIPATION Sevelamer Carbonate (Renvela -) 800 mg PO TIDCM [facility] Last Admin: 07/10/20 09:17 Dose: 800 mg Documented by: Sodium Bicarbonate (Sodium Bicarbonate -) 650 mg PO BID [facility] Last Admin: 07/10/20 09:18 Dose: 650 mg Documented by: Zolpidem Tartrate (Ambien -) 5 mg PO HS PRN PRN Reason: INSOMNIA Last Admin: 07/09/20 22:33 Dose: 5 mg Documented by: - Objective Vital Signs: Vital Signs Temperature 97.5 F L 07/10/20 08:58 Pulse Rate 74 07/10/20 08:58 Respiratory Rate 20 07/10/20 08:58 Blood Pressure 145/82 07/10/20 08:58 O2 Sat by Pulse Oximetry (%) 94 L 07/10/20 08:58 Constitutional: Yes: No Distress HENT: Yes: Atraumatic Neck: Yes: Supple Cardiovascular: Yes: Regular Rate and Rhythm Respiratory: Yes: Regular, Diminished. No: Rales, Rhonchi Gastrointestinal: Yes: Soft Extremities: No: Cyanosis Edema: No Neurological: Yes: Alert, Oriented Labs: CBC, BMP 07/09/20 06:20 07/09/20 06:20 INR, PTT INR 1.17 (0.83-1.09) H 07/10/20 02:08 Assessment/Plan 70 year old male with history of CKD stage 4/5, IDDM, hypertension, hyperlipidemia, BOBY, CHF, Aflutter, PVD who presented from home with a fall and generalized weakness and noted to have left lower extremity cellulitis with leukocytosis/WBC of 20k and Cr of 4.5. 1. Lower extremity cellulitis/ non-healing wound. 2. CKD stage 5 now ESRD on HD 3. Anemia 4. Hx of CHF w/o evidence of acute exacerbation 5. Hypertension 6. Hyperlipidemia 7. Pleural effusion 8. Dizziness r/o orthostatic hypotension vs. vertigo Dialysis today with additional UF to improve volume status repeat CXR in AM to determine need for thoracentesis forms submitted for outpatient dialysis placement, awaiting confirmation. dizziness improved with meclazine, make PRN Continue current antihypertensives Continue antibiotics for LE cellulitis may need antibiotics on discharge depending on extent of soft tissue wound. Imaging studies showed no abcess or collection Renal diet Thank you Jonah Painting DO
[2020-07-10] MEDS: HEPARIN SOD,PORK IN 0.45% NACL 25,000 UNITS/500 ML INFUS.BAG IVPB SCH (11:41)
[2020-07-10 18:54] LABS: HEMATOCRIT 25.8 % (35.4-49); HEMOGLOBIN 8.1 GM/dL (11.7-16.9); MCH 26.4 pg (25.7-33.7); MCHC 31.6 g/dl (32.0-35.9); MEAN CELL VOLUME 83.5 fl (80-96); MEAN PLT VOLUME 8.2 fl (7.5-11.1); PLATELET COUNT 389 K/MM3 (134-434); RBC 3.09 M/mm3 (4.00-5.60); RDW 15.5 % (11.9-15.9); WHITE BLOOD COUNT 10.4 K/mm3 (4.0-10.0)
[2020-07-10 19:09] LABS: BLOOD UREA NITROGEN 41.6 mg/dL (7-18); CALCIUM 7.5 mg/dL (8.5-10.1); CREATININE 4.2 mg/dL (0.55-1.3); PHOSPHOROUS 4.2 mg/dL (2.5-4.9); POTASSIUM 3.8 mmol/L (3.5-5.1)
--- NOTE | 2020-07-10 21:27 | PN ---
Progress Note, Physician - Current Medication List Current Medications: Active Medications Acetaminophen (Tylenol -) 650 mg PO Q4H PRN PRN Reason: FEVER Albuterol/Ipratropium (Duoneb -) 1 amp NEB Q6H PRN PRN Reason: WHEEZING Amlodipine Besylate (Norvasc -) 5 mg PO DAILY [facility] Last Admin: 07/10/20 09:17 Dose: 5 mg Documented by: Doxycycline Hyclate (Vibramycin -) 100 mg PO BID@1000,1800 [facility] Last Admin: 07/10/20 17:09 Dose: 100 mg Documented by: Duloxetine HCl (Cymbalta -) 40 mg PO DAILY [facility] Last Admin: 07/10/20 09:18 Dose: 40 mg Documented by: Gabapentin (Neurontin -) 100 mg PO BID [facility] Last Admin: 07/10/20 09:19 Dose: 100 mg Documented by: Guaifenesin (Robitussin -) 5 ml PO Q8H PRN PRN Reason: COUGH Heparin Sodium (Porcine) (Heparin -) 1,000 unit IVPUSH PRN PRN PRN Reason: Heparin Heparin Sodium (Porcine) (Heparin -) 5,000 unit IVPUSH PRN PRN PRN Reason: Heparin Last Admin: 07/10/20 02:44 Dose: 5,000 unit Documented by: Piperacillin Sod/Tazobactam (Sod 2.25 gm/ Dextrose) 50 mls @ 100 mls/hr IVPB Q8H-IV [facility]; Protocol Last Admin: 07/10/20 17:08 Dose: 100 mls/hr Documented by: HEPARIN SOD,PORK IN 0.45% NACL (Heparin-1/2ns 25,000 Units/500) 25,000 units in 500 mls @ 20 mls/hr IVPB TITR [facility]; Protocol Last Titration: 07/10/20 14:11 Dose: 1,000 units/hr, 20 mls/hr Documented by: Insulin Aspart (Novolog Vial Sliding Scale -) 1 vial SQ ACHS [facility]; Protocol Last Admin: 07/10/20 16:23 Dose: 4 units Documented by: Insulin Detemir (Levemir Vial) 30 units SQ HS [facility] Last Admin: 07/09/20 22:32 Dose: 30 units Documented by: Meclizine HCl (Antivert -) 12.5 mg PO Q6HPO PRN PRN Reason: VERTIGO Metoprolol Succinate (Toprol Xl -) 25 mg PO DAILY [facility] Last Admin: 07/10/20 09:18 Dose: 25 mg Documented by: Ondansetron HCl (Zofran Injection) 4 mg IVPUSH Q6H PRN PRN Reason: NAUSEA AND/OR VOMITING Pantoprazole Sodium (Protonix -) 20 mg PO DAILY [facility] Last Admin: 07/10/20 09:17 Dose: 20 mg Documented by: Senna (Senna -) 1 tab PO HS PRN PRN Reason: CONSTIPATION Sevelamer Carbonate (Renvela -) 800 mg PO TIDCM [facility] Last Admin: 07/10/20 17:25 Dose: 800 mg Documented by: Sodium Bicarbonate (Sodium Bicarbonate -) 650 mg PO BID [facility] Last Admin: 07/10/20 09:18 Dose: 650 mg Documented by: Zolpidem Tartrate (Ambien -) 5 mg PO HS PRN PRN Reason: INSOMNIA Last Admin: 07/09/20 22:33 Dose: 5 mg Documented by: - Objective Vital Signs: Vital Signs Temperature 98.4 F 07/10/20 17:55 Pulse Rate 66 07/10/20 21:16 Respiratory Rate 18 07/10/20 21:16 Blood Pressure 162/76 07/10/20 21:16 O2 Sat by Pulse Oximetry (%) 94 L 07/10/20 09:00 Labs: CBC, BMP 07/10/20 18:08 07/10/20 18:08 INR, PTT INR 1.17 (0.83-1.09) H 07/10/20 02:08 Problem List - Problems (1) Cellulitis Code(s): L03.90 - CELLULITIS, UNSPECIFIED (2) Cough Code(s): R05 - COUGH (3) ESRF (end stage renal failure) Code(s): N18.6 - END STAGE RENAL DISEASE (4) Hypertension Code(s): I10 - ESSENTIAL (PRIMARY) HYPERTENSION Qualifiers: Hypertension type: essential hypertension Qualified Code(s): I10 - Essential (primary) hypertension (5) Diabetes Code(s): E11.9 - TYPE 2 DIABETES MELLITUS WITHOUT COMPLICATIONS (6) CHF (congestive heart failure) Code(s): I50.9 - HEART FAILURE, UNSPECIFIED (7) Diabetic neuropathy Code(s): E11.40 - TYPE 2 DIABETES MELLITUS WITH DIABETIC NEUROPATHY, UNSP (8) Hx of CABG Code(s): Z95.1 - PRESENCE OF AORTOCORONARY BYPASS GRAFT (9) CAD (coronary artery disease) Code(s): I25.10 - ATHSCL HEART DISEASE OF [place] CORONARY ARTERY W/O ANG PCTRS Qualifiers: Coronary Disease-Associated Artery/Lesion type: [place] artery [place] vs. transplanted heart: [place] heart Associated angina: without angina Qualified Code(s): I25.10 - Atherosclerotic heart disease of [place] coronary artery without angina pectoris (10) Hyperlipidemia Code(s): E78.5 - HYPERLIPIDEMIA, UNSPECIFIED Qualifiers: Hyperlipidemia type: pure hypercholesterolemia Qualified Code(s): E78.00 - Pure hypercholesterolemia, unspecified; E78.0 - Pure hypercholesterolemia (11) PVD (peripheral vascular disease) Code(s): I73.9 - PERIPHERAL VASCULAR DISEASE, UNSPECIFIED
[2020-07-10] MEDS: ZOLPIDEM TARTRATE 5 MG TABLET PO PRN (22:39)
[2020-07-10] MEDS: INSULIN (LEVEMIR) 100 UNITS/ML UNITS SQ SCH (22:48)
[2020-07-11] MEDS ORDERED: PIPERACILLIN/TAZOBACTAM 2.25 GM VIAL IVPB ONE ×3 (00:35→17:00)
[2020-07-11] MEDS ORDERED: DEXTROSE 5%-WATER - 50 ML IVPB ONE ×3 (00:36→17:00)
[2020-07-11] MEDS: SENNOSIDES 8.6MG TABLET (FP) PO PRN (01:02)
[2020-07-11] MEDS: PIPERACILLIN/TAZOB 2.25 GM 2.25 GM in DEXTROSE 5%-WATER - 50 ML IVPB SCH ×3 (01:02→17:29)
[2020-07-11] MEDS: INSULIN SLIDING SCALE (NOVOLOG) 1 VIAL SQ SCH ×4 (06:13→22:54)
[2020-07-11] MEDS ORDERED: INSULIN (NOVOLOG) ASPART 100 UNITS/ML 10ML VIAL ONE ×2 (07:24→23:07)
[2020-07-11 07:33] LABS: HEMATOCRIT 27.2 % (35.4-49); HEMOGLOBIN 8.8 GM/dL (11.7-16.9); MCH 26.7 pg (25.7-33.7); MCHC 32.4 g/dl (32.0-35.9); MEAN CELL VOLUME 82.5 fl (80-96); MEAN PLT VOLUME 7.9 fl (7.5-11.1); PLATELET COUNT 413 K/MM3 (134-434); RBC 3.29 M/mm3 (4.00-5.60); RDW 15.4 % (11.9-15.9); WHITE BLOOD COUNT 9.4 K/mm3 (4.0-10.0)
--- NOTE | 2020-07-11 10:21 | PN ---
Progress Note (short form) - Note Progress Note: PULMONARY Denies shortness of breath, cough. No fevers. AM CXR still with left effusion/atelectasis. Vital Signs Period Temp Pulse Resp BP Sys/Snow Pulse Ox Last 24 Hr 98.4 F-98.6 F 66-78 18-20 144-172/64-85 93-96 Gen: NAD at rest Heart: RRR Lung: decreased breath sounds at the bases Abd: soft, nontender Ext: no edema CBC, BMP 07/11/20 06:50 07/10/20 18:08 Active Medications Acetaminophen (Tylenol -) 650 mg PO Q4H PRN PRN Reason: FEVER Albuterol/Ipratropium (Duoneb -) 1 amp NEB Q6H PRN PRN Reason: WHEEZING Amlodipine Besylate (Norvasc -) 5 mg PO DAILY [facility] Last Admin: 07/10/20 09:17 Dose: 5 mg Documented by: Doxycycline Hyclate (Vibramycin -) 100 mg PO BID@1000,1800 [facility] Last Admin: 07/10/20 17:09 Dose: 100 mg Documented by: Duloxetine HCl (Cymbalta -) 40 mg PO DAILY [facility] Last Admin: 07/10/20 09:18 Dose: 40 mg Documented by: Gabapentin (Neurontin -) 100 mg PO BID [facility] Last Admin: 07/10/20 22:00 Dose: 100 mg Documented by: Guaifenesin (Robitussin -) 5 ml PO Q8H PRN PRN Reason: COUGH Heparin Sodium (Porcine) (Heparin -) 1,000 unit IVPUSH PRN PRN PRN Reason: Heparin Heparin Sodium (Porcine) (Heparin -) 5,000 unit IVPUSH PRN PRN PRN Reason: Heparin Last Admin: 07/10/20 21:59 Dose: 5,000 unit Documented by: Piperacillin Sod/Tazobactam (Sod 2.25 gm/ Dextrose) 50 mls @ 100 mls/hr IVPB Q8H-IV [facility]; Protocol Last Admin: 07/11/20 01:02 Dose: 100 mls/hr Documented by: HEPARIN SOD,PORK IN 0.45% NACL (Heparin-1/2ns 25,000 Units/500) 25,000 units in 500 mls @ 20 mls/hr IVPB TITR [facility]; Protocol Last Titration: 07/10/20 21:49 Dose: 1,150 units/hr, 23 mls/hr Documented by: Insulin Aspart (Novolog Vial Sliding Scale -) 1 vial SQ [facility]; Protocol Last Admin: 07/11/20 06:13 Dose: Not Given Documented by: Insulin Detemir (Levemir Vial) 30 units SQ HS [facility] Last Admin: 07/10/20 22:48 Dose: Not Given Documented by: Meclizine HCl (Antivert -) 12.5 mg PO Q6HPO PRN PRN Reason: VERTIGO Metoprolol Succinate (Toprol Xl -) 25 mg PO DAILY [facility] Last Admin: 07/10/20 09:18 Dose: 25 mg Documented by: Ondansetron HCl (Zofran Injection) 4 mg IVPUSH Q6H PRN PRN Reason: NAUSEA AND/OR VOMITING Pantoprazole Sodium (Protonix -) 20 mg PO DAILY [facility] Last Admin: 07/10/20 09:17 Dose: 20 mg Documented by: Senna (Senna -) 1 tab PO HS PRN PRN Reason: CONSTIPATION Last Admin: 07/11/20 01:02 Dose: 1 tab Documented by: Sevelamer Carbonate (Renvela -) 800 mg PO TIDCM [facility] Last Admin: 07/10/20 17:25 Dose: 800 mg Documented by: Sodium Bicarbonate (Sodium Bicarbonate -) 650 mg PO BID [facility] Last Admin: 07/10/20 21:59 Dose: 650 mg Documented by: Zolpidem Tartrate (Ambien -) 5 mg PO HS PRN PRN Reason: INSOMNIA Last Admin: 07/10/20 22:39 Dose: 5 mg Documented by: A/P Left Pleural Effusion Acute on Chronic Diastolic Heart Failure Cellulitis ESRD on HD CAD s/p CABG h/o Atrial Flutter PAD HTN DM Anemia - antibiotics per ID - HD per renal - on anticoagulation - for thoracentesis - DVT prophylaxis
[2020-07-11] MEDS ORDERED: PT OWN MED DRAWER 7, Y5N ONE ×3 (10:41→12:29)
[2020-07-11] MEDS: SEVELAMER CARBONATE 800 MG TAB (FP) PO SCH ×3 (10:57→17:28)
[2020-07-11] MEDS: metoPROLOL SUCCINATE 25 MG TAB.SR.24H (FP) PO SCH (10:58)
[2020-07-11] MEDS: SODIUM BICARBONATE 650 MG TABLET PO SCH ×2 (10:58→22:37)
[2020-07-11] MEDS: PANTOPRAZOLE 20 MG TABLET PO SCH (10:58)
[2020-07-11] MEDS: amLODIPine BESYLATE 5 MG TABLET (FP) PO SCH (10:59)
[2020-07-11] MEDS: DULoxetine HCL 20 MG CAPSULE.DR PO SCH (10:59)
[2020-07-11] MEDS: DOXYCYCLINE HYCLATE 100 MG CAPSULE PO SCH ×2 (10:59→17:28)
[2020-07-11] MEDS: GABAPENTIN 100 MG CAPSULE PO SCH ×2 (11:00→22:37)
--- NOTE | 2020-07-11 11:22 | PN ---
Progress Note, Physician History of Present Illness: patient stable - Current Medication List Current Medications: Active Medications Acetaminophen (Tylenol -) 650 mg PO Q4H PRN PRN Reason: FEVER Albuterol/Ipratropium (Duoneb -) 1 amp NEB Q6H PRN PRN Reason: WHEEZING Amlodipine Besylate (Norvasc -) 5 mg PO DAILY [facility] Last Admin: 07/11/20 10:59 Dose: 5 mg Documented by: Doxycycline Hyclate (Vibramycin -) 100 mg PO BID@1000,1800 [facility] Last Admin: 07/11/20 10:59 Dose: 100 mg Documented by: Duloxetine HCl (Cymbalta -) 40 mg PO DAILY [facility] Last Admin: 07/11/20 10:59 Dose: 40 mg Documented by: Gabapentin (Neurontin -) 100 mg PO BID [facility] Last Admin: 07/11/20 11:00 Dose: 100 mg Documented by: Guaifenesin (Robitussin -) 5 ml PO Q8H PRN PRN Reason: COUGH Heparin Sodium (Porcine) (Heparin -) 1,000 unit IVPUSH PRN PRN PRN Reason: Heparin Heparin Sodium (Porcine) (Heparin -) 5,000 unit IVPUSH PRN PRN PRN Reason: Heparin Last Admin: 07/10/20 21:59 Dose: 5,000 unit Documented by: Piperacillin Sod/Tazobactam (Sod 2.25 gm/ Dextrose) 50 mls @ 100 mls/hr IVPB Q8H-IV [facility]; Protocol Last Admin: 07/11/20 10:57 Dose: 100 mls/hr Documented by: HEPARIN SOD,PORK IN 0.45% NACL (Heparin-1/2ns 25,000 Units/500) 25,000 units in 500 mls @ 20 mls/hr IVPB TITR [facility]; Protocol Last Titration: 07/10/20 21:49 Dose: 1,150 units/hr, 23 mls/hr Documented by: Insulin Aspart (Novolog Vial Sliding Scale -) 1 vial SQ ACHS [facility]; Protocol Last Admin: 07/11/20 06:13 Dose: Not Given Documented by: Insulin Detemir (Levemir Vial) 30 units SQ HS [facility] Last Admin: 07/10/20 22:48 Dose: Not Given Documented by: Meclizine HCl (Antivert -) 12.5 mg PO Q6HPO PRN PRN Reason: VERTIGO Metoprolol Succinate (Toprol Xl -) 25 mg PO DAILY [facility] Last Admin: 07/11/20 10:58 Dose: 25 mg Documented by: Ondansetron HCl (Zofran Injection) 4 mg IVPUSH Q6H PRN PRN Reason: NAUSEA AND/OR VOMITING Pantoprazole Sodium (Protonix -) 20 mg PO DAILY [facility] Last Admin: 07/11/20 10:58 Dose: 20 mg Documented by: Senna (Senna -) 1 tab PO HS PRN PRN Reason: CONSTIPATION Last Admin: 07/11/20 01:02 Dose: 1 tab Documented by: Sevelamer Carbonate (Renvela -) 800 mg PO TIDCM [facility] Last Admin: 07/11/20 10:57 Dose: 800 mg Documented by: Sodium Bicarbonate (Sodium Bicarbonate -) 650 mg PO BID [facility] Last Admin: 07/11/20 10:58 Dose: 650 mg Documented by: Zolpidem Tartrate (Ambien -) 5 mg PO HS PRN PRN Reason: INSOMNIA Last Admin: 07/10/20 22:39 Dose: 5 mg Documented by: - Objective Vital Signs: Vital Signs Temperature 98.5 F 07/11/20 06:00 Pulse Rate 78 07/11/20 06:00 Respiratory Rate 18 07/11/20 06:00 Blood Pressure 164/67 07/11/20 06:00 O2 Sat by Pulse Oximetry (%) 93 L 07/11/20 06:00 Constitutional: Yes: No Distress, Calm Cardiovascular: Yes: S1, S2 Respiratory: Yes: Regular, CTA Bilaterally Gastrointestinal: Yes: Normal Bowel Sounds, Soft Musculoskeletal: Yes: WNL Extremities: Yes: Other Neurological: Yes: Alert, Oriented Psychiatric: Yes: Alert, Oriented Labs: CBC, BMP 07/11/20 06:50 07/10/20 18:08 INR, PTT INR 1.17 (0.83-1.09) H 07/10/20 02:08 Assessment/Plan Problem List - Problems (1) Cellulitis Code(s): L03.90 - CELLULITIS, UNSPECIFIED (2) Diabetes Code(s): E11.9 - TYPE 2 DIABETES MELLITUS WITHOUT COMPLICATIONS (3) CHF (congestive heart failure) Code(s): I50.9 - HEART FAILURE, UNSPECIFIED (4) Diabetic neuropathy Code(s): E11.40 - TYPE 2 DIABETES MELLITUS WITH DIABETIC NEUROPATHY, UNSP (5) ESRF (end stage renal failure) Code(s): N18.6 - END STAGE RENAL DISEASE (6) Hx of CABG Code(s): Z95.1 - PRESENCE OF AORTOCORONARY BYPASS GRAFT (7) PAD (peripheral artery disease) Code(s): I73.9 - PERIPHERAL VASCULAR DISEASE, UNSPECIFIED (8) CAD (coronary artery disease) Code(s): I25.10 - ATHSCL HEART DISEASE OF [place] CORONARY ARTERY W/O ANG PCTRS Qualifiers: Coronary Disease-Associated Artery/Lesion type: [place] artery [place] vs. transplanted heart: [place] heart Associated angina: without angina Qualified Code(s): I25.10 - Atherosclerotic heart disease of [place] coronary artery without angina pectoris (9) Hyperlipidemia Code(s): E78.5 - HYPERLIPIDEMIA, UNSPECIFIED Qualifiers: Hyperlipidemia type: pure hypercholesterolemia Qualified Code(s): E78.00 - Pure hypercholesterolemia, unspecified; E78.0 - Pure hypercholesterolemia (10) Hypertension Code(s): I10 - ESSENTIAL (PRIMARY) HYPERTENSION Qualifiers: Hypertension type: essential hypertension Qualified Code(s): I10 - Essential (primary) hypertension (11) PVD (peripheral vascular disease) Code(s): I73.9 - PERIPHERAL VASCULAR DISEASE, UNSPECIFIED Assessment/Plan LLE cellulitis/foot abscess - s/p drainage Diabetic foot ulcer Fever Leukocytosis Neuropathy PVD CAD s/p CABG CKD we can use vanco and cefatrzidine during dialysis discused with nephro give it for another 4 weeks
--- NOTE | 2020-07-11 12:36 | PN ---
Progress Note (short form) - Note Progress Note: Podiatry F/U: Seen/evaluated at bedside NAD. Denies fever, chills. Afebrile. Complains of nausea currently. S/p permacath placement for HD access. KOREY: L foot: pedal pulses weakly palpable, TG wnl, CFT brisk to all digits. There is a fifth metatarsal base diabetic ulcer with mixed fibrogranular base, regular borders with eschar present. There is probing to bone. There is serous drainage expressed from the ulcer site. There is no purulence, no soft tissue crepitus, no streaking ascending cellulitis, no signs of infection. Periwound erythema resolving. Wound Cx: MRSA, enterobacter Imp: 70 year old diabetic male with left fifth metatarsal base diabetic ulcer and osteomyelitis 1. Discussed case with Dr. Null; plan for IV vancomycin and ceftazidine for treatment of ostemyelitis 2. Packing to the left foot. Upon discharge will need home nursing services. Dressing changes with algidex packing to the ulcer changed every other day. 3. Upon discharge will f/u with me 07/18/20 in [facility] healing center. [phone] Arsalan Powell DPM
[2020-07-11] MEDS: MECLIZINE HCL 12.5 MG TABLET PO PRN (12:39)
[2020-07-11] MEDS: HEPARIN SOD,PORK IN 0.45% NACL 25,000 UNITS/500 ML INFUS.BAG IVPB SCH (12:41)
--- NOTE | 2020-07-11 13:13 | OP ---
DATE OF OPERATION: 07/06/2020 DATE OF DICTATION: 07/06/2020 PREOPERATIVE DIAGNOSIS: End-stage renal disease. POSTOPERATIVE DIAGNOSIS: End-stage renal disease. PROCEDURE: Insertion of permacath. SURGEON: Matt Mix DO ANESTHESIA: Fractional. BLOOD LOSS: 20 mL. INDICATIONS: The patient is a 70-year-old male who has a right basilic vein fistula but it is not mature yet and needs a permacatheter to be inserted for temporary dialysis catheter for temporary dialysis. Patient was consented for the procedure, understanding all risks, benefits, alternatives. He was then taken to the operating room. Once in the operating room, he was laid on the operating table in supine manner. The area of the right neck and chest were prepped and draped in a sterile surgical manner. We then went ahead and under ultrasound guidance visualized the right internal jugular vein and 10 mL lidocaine 1% was injected there. We then went ahead and used our micropuncture needle and punctured the right internal jugular vein under ultrasound guidance. Micropuncture wire was inserted, micropuncture sheath was inserted. A traditional 0.035 floppy guidewire was inserted under fluoroscopy. We then injected 10 mL lidocaine 1% above and below the clavicle. We then took an 11 blade, made a 1-cm incision on the puncture site. We took a 15 blade, made a 1-cm incision below the clavicle. We then tunneled the permacath up to the puncture site. We then took our breakaway sheath, placed it over the guidewire into the vein under fluoroscopy, and the cannula and guidewire were removed. The catheter was placed inside the sheath, sheath was broken away as the catheter was placed inside the vein. The neck of the catheter was nice and smooth. The tip of the catheter was located at the site of the right atrium. We then jessica back on each port of the catheter, there was good flow. Heparinized saline was injected, 2000 units of IV heparin was injected into each port. Then 4-0 Biosyn was used and 2 simple stitches were placed at puncture site, 3-0 nylon was used and the catheter was attached to the skin. BioPatch, Steri-Strips, 4 x 4, Tegaderms were placed. Patient tolerated the procedure with no complications. Patient transferred to PACU in stable condition, where a chest x-ray will be ordered. MATT MIX DO CNC OPERATOR MACHINIST/[id number]
--- NOTE | 2020-07-11 16:29 | PN ---
Progress Note, Physician - Current Medication List Current Medications: Active Medications Acetaminophen (Tylenol -) 650 mg PO Q4H PRN PRN Reason: FEVER Last Admin: 07/11/20 12:40 Dose: 650 mg Documented by: Albuterol/Ipratropium (Duoneb -) 1 amp NEB Q6H PRN PRN Reason: WHEEZING Amlodipine Besylate (Norvasc -) 5 mg PO DAILY [facility] Last Admin: 07/11/20 10:59 Dose: 5 mg Documented by: Doxycycline Hyclate (Vibramycin -) 100 mg PO BID@1000,1800 [facility] Last Admin: 07/11/20 10:59 Dose: 100 mg Documented by: Duloxetine HCl (Cymbalta -) 40 mg PO DAILY [facility] Last Admin: 07/11/20 10:59 Dose: 40 mg Documented by: Gabapentin (Neurontin -) 100 mg PO BID [facility] Last Admin: 07/11/20 11:00 Dose: 100 mg Documented by: Guaifenesin (Robitussin -) 5 ml PO Q8H PRN PRN Reason: COUGH Heparin Sodium (Porcine) (Heparin -) 1,000 unit IVPUSH PRN PRN PRN Reason: Heparin Last Admin: 07/11/20 12:42 Dose: 1,000 unit Documented by: Heparin Sodium (Porcine) (Heparin -) 5,000 unit IVPUSH PRN PRN PRN Reason: Heparin Last Admin: 07/10/20 21:59 Dose: 5,000 unit Documented by: Piperacillin Sod/Tazobactam (Sod 2.25 gm/ Dextrose) 50 mls @ 100 mls/hr IVPB Q8H-IV [facility]; Protocol Last Admin: 07/11/20 10:57 Dose: 100 mls/hr Documented by: HEPARIN SOD,PORK IN 0.45% NACL (Heparin-1/2ns 25,000 Units/500) 25,000 units in 500 mls @ 20 mls/hr IVPB TITR [facility]; Protocol Last Admin: 07/11/20 12:41 Dose: 1,250 units/hr, 25 mls/hr Documented by: Insulin Aspart (Novolog Vial Sliding Scale -) 1 vial SQ ACHS [facility]; Protocol Last Admin: 07/11/20 12:39 Dose: 2 units Documented by: Insulin Detemir (Levemir Vial) 30 units SQ HS [facility] Last Admin: 07/10/20 22:48 Dose: Not Given Documented by: Meclizine HCl (Antivert -) 12.5 mg PO Q6HPO PRN PRN Reason: VERTIGO Last Admin: 07/11/20 12:39 Dose: 12.5 mg Documented by: Metoprolol Succinate (Toprol Xl -) 25 mg PO DAILY [facility] Last Admin: 07/11/20 10:58 Dose: 25 mg Documented by: Ondansetron HCl (Zofran Injection) 4 mg IVPUSH Q6H PRN PRN Reason: NAUSEA AND/OR VOMITING Pantoprazole Sodium (Protonix -) 20 mg PO DAILY [facility] Last Admin: 07/11/20 10:58 Dose: 20 mg Documented by: Senna (Senna -) 1 tab PO HS PRN PRN Reason: CONSTIPATION Last Admin: 07/11/20 01:02 Dose: 1 tab Documented by: Sevelamer Carbonate (Renvela -) 800 mg PO TIDCM [facility] Last Admin: 07/11/20 12:40 Dose: 800 mg Documented by: Sodium Bicarbonate (Sodium Bicarbonate -) 650 mg PO BID [facility] Last Admin: 07/11/20 10:58 Dose: 650 mg Documented by: Zolpidem Tartrate (Ambien -) 5 mg PO HS PRN PRN Reason: INSOMNIA Last Admin: 07/10/20 22:39 Dose: 5 mg Documented by: - Objective Vital Signs: Vital Signs Temperature 98.5 F 07/11/20 13:45 Pulse Rate 78 07/11/20 13:45 Respiratory Rate 18 07/11/20 13:45 Blood Pressure 162/75 07/11/20 13:45 O2 Sat by Pulse Oximetry (%) 93 L 07/11/20 06:00 Constitutional: Yes: No Distress HENT: Yes: Atraumatic Neck: Yes: Supple Cardiovascular: Yes: Regular Rate and Rhythm Respiratory: Yes: Rhonchi Gastrointestinal: Yes: Normal Bowel Sounds Extremities: Yes: Other (llex in dressing) Edema: Yes Neurological: Yes: Alert, Oriented Labs: CBC, BMP 07/11/20 06:50 07/10/20 18:08 INR, PTT INR 1.17 (0.83-1.09) H 07/10/20 02:08 Problem List - Problems (1) Cellulitis Assessment/Plan: iv abx improving wound care dressing change dc planning Code(s): L03.90 - CELLULITIS, UNSPECIFIED (2) Diabetes Assessment/Plan: on insulin bgms Code(s): E11.9 - TYPE 2 DIABETES MELLITUS WITHOUT COMPLICATIONS (3) ARF (acute renal failure) Assessment/Plan: ON DIALYSIS NOW Code(s): N17.9 - ACUTE KIDNEY FAILURE, UNSPECIFIED (4) Hx of CABG Code(s): Z95.1 - PRESENCE OF AORTOCORONARY BYPASS GRAFT (5) PAD (peripheral artery disease) Code(s): I73.9 - PERIPHERAL VASCULAR DISEASE, UNSPECIFIED (6) Hypertension Assessment/Plan: on meds monitor Code(s): I10 - ESSENTIAL (PRIMARY) HYPERTENSION Qualifiers: Hypertension type: essential hypertension Qualified Code(s): I10 - Essential (primary) hypertension (7) Atrial fibrillation Assessment/Plan: on iv heparin now Code(s): I48.91 - UNSPECIFIED ATRIAL FIBRILLATION (8) Hyperlipidemia Code(s): E78.5 - HYPERLIPIDEMIA, UNSPECIFIED Qualifiers: Hyperlipidemia type: pure hypercholesterolemia Qualified Code(s): E78.00 - Pure hypercholesterolemia, unspecified; E78.0 - Pure hypercholesterolemia (9) ESRF (end stage renal failure) Code(s): N18.6 - END STAGE RENAL DISEASE (10) PVD (peripheral vascular disease) Code(s): I73.9 - PERIPHERAL VASCULAR DISEASE, UNSPECIFIED Assessment/Plan for thoracentesis as per pulmonary COVERING FOR DR ADAL BRUCE
[2020-07-11] MEDS ORDERED: POLYETHYLENE GLYCOL 3350 119 GM BTL PO ONE (16:45)
--- NOTE | 2020-07-11 18:58 | PN ---
Progress Note, Physician Chief Complaint: Weakness History of Present Illness: Seen and examined at the bedside awake and alert no acute complaints denies any CP, shortness of breath, palpitations making urine - Current Medication List Current Medications: Active Medications Acetaminophen (Tylenol -) 650 mg PO Q4H PRN PRN Reason: FEVER Last Admin: 07/11/20 12:40 Dose: 650 mg Documented by: Amlodipine Besylate (Norvasc -) 5 mg PO DAILY [facility] Last Admin: 07/11/20 10:59 Dose: 5 mg Documented by: Doxycycline Hyclate (Vibramycin -) 100 mg PO BID@1000,1800 [facility] Last Admin: 07/11/20 17:28 Dose: 100 mg Documented by: Duloxetine HCl (Cymbalta -) 40 mg PO DAILY [facility] Last Admin: 07/11/20 10:59 Dose: 40 mg Documented by: Gabapentin (Neurontin -) 100 mg PO BID [facility] Last Admin: 07/11/20 11:00 Dose: 100 mg Documented by: Guaifenesin (Robitussin -) 5 ml PO Q8H PRN PRN Reason: COUGH Heparin Sodium (Porcine) (Heparin -) 1,000 unit IVPUSH PRN PRN PRN Reason: Heparin Last Admin: 07/11/20 12:42 Dose: 1,000 unit Documented by: Heparin Sodium (Porcine) (Heparin -) 5,000 unit IVPUSH PRN PRN PRN Reason: Heparin Last Admin: 07/10/20 21:59 Dose: 5,000 unit Documented by: Piperacillin Sod/Tazobactam (Sod 2.25 gm/ Dextrose) 50 mls @ 100 mls/hr IVPB Q8H-IV [facility]; Protocol Last Admin: 07/11/20 17:29 Dose: 100 mls/hr Documented by: HEPARIN SOD,PORK IN 0.45% NACL (Heparin-1/2ns 25,000 Units/500) 25,000 units in 500 mls @ 20 mls/hr IVPB TITR [facility]; Protocol Last Admin: 07/11/20 12:41 Dose: 1,250 units/hr, 25 mls/hr Documented by: Insulin Aspart (Novolog Vial Sliding Scale -) 1 vial SQ ACHS [facility]; Protocol Last Admin: 07/11/20 17:25 Dose: 4 units Documented by: Insulin Detemir (Levemir Vial) 30 units SQ HS [facility] Last Admin: 07/10/20 22:48 Dose: Not Given Documented by: Meclizine HCl (Antivert -) 12.5 mg PO Q6HPO PRN PRN Reason: VERTIGO Last Admin: 07/11/20 12:39 Dose: 12.5 mg Documented by: Metoprolol Succinate (Toprol Xl -) 25 mg PO DAILY [facility] Last Admin: 07/11/20 10:58 Dose: 25 mg Documented by: Ondansetron HCl (Zofran Injection) 4 mg IVPUSH Q6H PRN PRN Reason: NAUSEA AND/OR VOMITING Pantoprazole Sodium (Protonix -) 20 mg PO DAILY [facility] Last Admin: 07/11/20 10:58 Dose: 20 mg Documented by: Senna (Senna -) 1 tab PO HS PRN PRN Reason: CONSTIPATION Last Admin: 07/11/20 01:02 Dose: 1 tab Documented by: Sevelamer Carbonate (Renvela -) 800 mg PO TIDCM [facility] Last Admin: 07/11/20 17:28 Dose: 800 mg Documented by: Sodium Bicarbonate (Sodium Bicarbonate -) 650 mg PO BID [facility] Last Admin: 07/11/20 10:58 Dose: 650 mg Documented by: Zolpidem Tartrate (Ambien -) 5 mg PO HS PRN PRN Reason: INSOMNIA Last Admin: 07/10/20 22:39 Dose: 5 mg Documented by: - Objective Vital Signs: Vital Signs Temperature 98.5 F 07/11/20 13:45 Pulse Rate 78 07/11/20 13:45 Respiratory Rate 18 07/11/20 13:45 Blood Pressure 162/75 07/11/20 13:45 O2 Sat by Pulse Oximetry (%) 93 L 07/11/20 06:00 Constitutional: Yes: No Distress, Calm Neck: Yes: Supple Cardiovascular: Yes: Regular Rate and Rhythm Respiratory: Yes: Regular Gastrointestinal: Yes: Normal Bowel Sounds, Soft Extremities: Yes: Other (dressing in place). No: Cyanosis Edema: No Neurological: Yes: Alert, Oriented Labs: CBC, BMP 07/11/20 06:50 07/10/20 18:08 INR, PTT INR 1.17 (0.83-1.09) H 07/10/20 02:08 Assessment/Plan 70 year old male with history of CKD stage 4/5, IDDM, hypertension, hyperlipidemia, BOBY, CHF, Aflutter, PVD who presented from home with a fall and generalized weakness and noted to have left lower extremity cellulitis with leukocytosis/WBC of 20k and Cr of 4.5. 1. Lower extremity cellulitis/ non-healing wound. 2. CKD stage 5 now ESRD on HD 3. Anemia 4. Hx of CHF w/o evidence of acute exacerbation 5. Hypertension 6. Hyperlipidemia 7. Pleural effusion 8. Dizziness r/o orthostatic hypotension vs. vertigo No acute need for dialysis today Dialysis tomorrow with UF as tolerated CXR shows persistent collection at the lung base Outpatient dialysis placement secured at [facility], [place], operated by [facility], to start on Friday. dizziness improved with meclazine, make PRN Continue current antihypertensives Continue antibiotics for LE cellulitis To continue Vanco and Ceftazidine for 3 more week with dialysis per ID Imaging studies showed no abcess or collection Renal diet Thank you Jonah Painting DO
[2020-07-11] MEDS: ZOLPIDEM TARTRATE 5 MG TABLET PO PRN (22:37)
[2020-07-11] MEDS: INSULIN (LEVEMIR) 100 UNITS/ML UNITS SQ SCH (22:53)
[2020-07-11] MEDS ORDERED: INSULIN (LEVEMIR) 100 UNITS/ML UNITS SQ ONE (23:07)
[2020-07-12] MEDS ORDERED: DEXTROSE 5%-WATER - 50 ML IVPB ONE ×2 (01:21→09:23)
[2020-07-12] MEDS ORDERED: PIPERACILLIN/TAZOBACTAM 2.25 GM VIAL IVPB ONE ×2 (01:21→09:23)
[2020-07-12] MEDS: PIPERACILLIN/TAZOB 2.25 GM 2.25 GM in DEXTROSE 5%-WATER - 50 ML IVPB SCH ×2 (01:35→09:31)
[2020-07-12] MEDS ORDERED: PT OWN MED DRAWER 7, Y5N ONE ×2 (06:30→09:23)
[2020-07-12] MEDS: INSULIN SLIDING SCALE (NOVOLOG) 1 VIAL SQ SCH ×4 (06:51→21:20)
--- NOTE | 2020-07-12 07:52 | PN ---
Progress Note, Physician History of Present Illness: PULMONARY ALERT,COMFORTABLE,-SOB - Current Medication List Current Medications: Active Medications Acetaminophen (Tylenol -) 650 mg PO Q4H PRN PRN Reason: FEVER Last Admin: 07/11/20 12:40 Dose: 650 mg Documented by: Amlodipine Besylate (Norvasc -) 5 mg PO DAILY [facility] Last Admin: 07/11/20 10:59 Dose: 5 mg Documented by: Doxycycline Hyclate (Vibramycin -) 100 mg PO BID@1000,1800 [facility] Last Admin: 07/11/20 17:28 Dose: 100 mg Documented by: Duloxetine HCl (Cymbalta -) 40 mg PO DAILY [facility] Last Admin: 07/11/20 10:59 Dose: 40 mg Documented by: Epoetin Errol (Procrit -) 20,000 unit IVPUSH ONCE ONE Stop: 07/12/20 08:01 Gabapentin (Neurontin -) 100 mg PO BID [facility] Last Admin: 07/11/20 22:37 Dose: 100 mg Documented by: Guaifenesin (Robitussin -) 5 ml PO Q8H PRN PRN Reason: COUGH Heparin Sodium (Porcine) (Heparin -) 1,000 unit IVPUSH PRN PRN PRN Reason: Heparin Last Admin: 07/11/20 12:42 Dose: 1,000 unit Documented by: Heparin Sodium (Porcine) (Heparin -) 5,000 unit IVPUSH PRN PRN PRN Reason: Heparin Last Admin: 07/10/20 21:59 Dose: 5,000 unit Documented by: Piperacillin Sod/Tazobactam (Sod 2.25 gm/ Dextrose) 50 mls @ 100 mls/hr IVPB Q8H-IV [facility]; Protocol Last Admin: 07/12/20 01:35 Dose: 100 mls/hr Documented by: HEPARIN SOD,PORK IN 0.45% NACL (Heparin-1/2ns 25,000 Units/500) 25,000 units in 500 mls @ 20 mls/hr IVPB TITR [facility]; Protocol Last Admin: 07/11/20 12:41 Dose: 1,250 units/hr, 25 mls/hr Documented by: Sodium Chloride (Normal Saline -) 250 mls @ 3,000 mls/hr IV PRN PRN PRN Reason: Hypotension during Dialysis Stop: 07/12/20 18:58 Vancomycin HCl (Vancomycin (Pre-Docked)) 1,000 mg in 250 mls @ 166.667 mls/hr IVPB ONCE ONE; Protocol Stop: 07/12/20 10:29 Insulin Aspart (Novolog Vial Sliding Scale -) 1 vial SQ [facility]; Protocol Last Admin: 07/12/20 06:51 Dose: Not Given Documented by: Insulin Detemir (Levemir Vial) 30 units SQ [facility] Last Admin: 07/11/20 22:53 Dose: 30 units Documented by: Meclizine HCl (Antivert -) 12.5 mg PO Q6HPO PRN PRN Reason: VERTIGO Last Admin: 07/11/20 12:39 Dose: 12.5 mg Documented by: Metoprolol Succinate (Toprol Xl -) 25 mg PO DAILY [facility] Last Admin: 07/11/20 10:58 Dose: 25 mg Documented by: Ondansetron HCl (Zofran Injection) 4 mg IVPUSH Q6H PRN PRN Reason: NAUSEA AND/OR VOMITING Pantoprazole Sodium (Protonix -) 20 mg PO DAILY [facility] Last Admin: 07/11/20 10:58 Dose: 20 mg Documented by: Senna (Senna -) 1 tab PO HS PRN PRN Reason: CONSTIPATION Last Admin: 07/11/20 01:02 Dose: 1 tab Documented by: Sevelamer Carbonate (Renvela -) 800 mg PO TIDCM [facility] Last Admin: 07/11/20 17:28 Dose: 800 mg Documented by: Sodium Bicarbonate (Sodium Bicarbonate -) 650 mg PO BID [facility] Last Admin: 07/11/20 22:37 Dose: 650 mg Documented by: Zolpidem Tartrate (Ambien -) 5 mg PO HS PRN PRN Reason: INSOMNIA Last Admin: 07/11/20 22:37 Dose: 5 mg Documented by: - Objective Vital Signs: Vital Signs Temperature 98.2 F 07/12/20 06:00 Pulse Rate 69 07/12/20 06:00 Respiratory Rate 18 07/12/20 06:00 Blood Pressure 131/54 L 07/12/20 06:00 O2 Sat by Pulse Oximetry (%) 98 07/12/20 06:00 Constitutional: Yes: Well Nourished, Calm Eyes: Yes: WNL HENT: Yes: WNL Neck: Yes: WNL Cardiovascular: Yes: Regular Rate and Rhythm, S1, S2 Respiratory: Yes: Diminished (DIMINISHED BS LEFT BASE) Gastrointestinal: Yes: Normal Bowel Sounds, Soft Extremities: Yes: WNL Edema: No Labs: CBC, BMP 07/11/20 06:50 Problem List - Problems (1) Cellulitis Code(s): L03.90 - CELLULITIS, UNSPECIFIED (2) Cough Code(s): R05 - COUGH (3) Diabetes Code(s): E11.9 - TYPE 2 DIABETES MELLITUS WITHOUT COMPLICATIONS (4) Atrial fibrillation Code(s): I48.91 - UNSPECIFIED ATRIAL FIBRILLATION (5) CHF (congestive heart failure) Code(s): I50.9 - HEART FAILURE, UNSPECIFIED (6) Diabetic foot infection Code(s): E11.628 - TYPE 2 DIABETES MELLITUS WITH OTHER SKIN COMPLICATIONS; L08.9 - LOCAL INFECTION OF THE SKIN AND SUBCUTANEOUS TISSUE, UNSP (7) Foot ulcer Code(s): L97.509 - NON-PRESSURE CHRONIC ULCER OTH PRT UNSP FOOT W UNSP SEVERITY (8) Hx of CABG Code(s): Z95.1 - PRESENCE OF AORTOCORONARY BYPASS GRAFT (9) PAD (peripheral artery disease) Code(s): I73.9 - PERIPHERAL VASCULAR DISEASE, UNSPECIFIED (10) Hyperlipidemia Code(s): E78.5 - HYPERLIPIDEMIA, UNSPECIFIED Qualifiers: Hyperlipidemia type: pure hypercholesterolemia Qualified Code(s): E78.00 - Pure hypercholesterolemia, unspecified; E78.0 - Pure hypercholesterolemia (11) Hypertension Code(s): I10 - ESSENTIAL (PRIMARY) HYPERTENSION Qualifiers: Hypertension type: essential hypertension Qualified Code(s): I10 - Essential (primary) hypertension (12) PVD (peripheral vascular disease) Code(s): I73.9 - PERIPHERAL VASCULAR DISEASE, UNSPECIFIED Assessment/Plan IMP COUGH LEFT PLEURAL EFFUSION ?INFECTIOUS,? CHF,? MALIGNANT MEDIASTINAL ADENOPATHY LIKELY REACTIVE DIASTOLIC HF LLE CELLULITIS ASHD S/P CABG H/O AFLUTTER S/P ABLATION CKD PAD DM HTN ANEMIA H/O TIAs PLAN INHALED BRONCHODILATORS ABX PER ID ANTI-TUSSIVES THORACENTESIS TODAY MONITOR LYTES,RENAL FUNCTION,H+H HD PER RENAL F/U CHEST CT OUTPATIENT IV HEPARIN DR ELIAS Problem List - Problems (1) Cellulitis Code(s): L03.90 - CELLULITIS, UNSPECIFIED (2) Cough Code(s): R05 - COUGH (3) Diabetes Code(s): E11.9 - TYPE 2 DIABETES MELLITUS WITHOUT COMPLICATIONS (4) Atrial fibrillation Code(s): I48.91 - UNSPECIFIED ATRIAL FIBRILLATION (5) CHF (congestive heart failure) Code(s): I50.9 - HEART FAILURE, UNSPECIFIED (6) Diabetic foot infection Code(s): E11.628 - TYPE 2 DIABETES MELLITUS WITH OTHER SKIN COMPLICATIONS; L08.9 - LOCAL INFECTION OF THE SKIN AND SUBCUTANEOUS TISSUE, UNSP (7) Foot ulcer Code(s): L97.509 - NON-PRESSURE CHRONIC ULCER OTH PRT UNSP FOOT W UNSP SEVERITY (8) Hx of CABG Code(s): Z95.1 - PRESENCE OF AORTOCORONARY BYPASS GRAFT (9) PAD (peripheral artery disease) Code(s): I73.9 - PERIPHERAL VASCULAR DISEASE, UNSPECIFIED (10) Hyperlipidemia Code(s): E78.5 - HYPERLIPIDEMIA, UNSPECIFIED Qualifiers: Hyperlipidemia type: pure hypercholesterolemia Qualified Code(s): E78.00 - Pure hypercholesterolemia, unspecified; E78.0 - Pure hypercholesterolemia (11) Hypertension Code(s): I10 - ESSENTIAL (PRIMARY) HYPERTENSION Qualifiers: Hypertension type: essential hypertension Qualified Code(s): I10 - Essential (primary) hypertension (12) PVD (peripheral vascular disease) Code(s): I73.9 - PERIPHERAL VASCULAR DISEASE, UNSPECIFIED
[2020-07-12 08:29] LABS: HEMATOCRIT 29.3 % (35.4-49); HEMOGLOBIN 9.2 GM/dL (11.7-16.9); MCHC 31.5 g/dl (32.0-35.9); MEAN CELL VOLUME 82.6 fl (80-96); MEAN PLT VOLUME 8.1 fl (7.5-11.1); PLATELET COUNT 451 K/MM3 (134-434); RBC 3.55 M/mm3 (4.00-5.60); RDW 15.4 % (11.9-15.9); WHITE BLOOD COUNT 9.9 K/mm3 (4.0-10.0)
[2020-07-12] MEDS: SEVELAMER CARBONATE 800 MG TAB (FP) PO SCH ×3 (08:42→17:36)
[2020-07-12] MEDS ORDERED: VANCOMYCIN 1 GRAM (PRE-DOCKED) 1,000 MG/250 ML BAG IVPB ONE ×2 (09:00→16:00)
[2020-07-12] MEDS: SODIUM BICARBONATE 650 MG TABLET PO SCH ×2 (09:31→21:17)
[2020-07-12] MEDS: DOXYCYCLINE HYCLATE 100 MG CAPSULE PO SCH (09:31)
[2020-07-12] MEDS: amLODIPine BESYLATE 5 MG TABLET (FP) PO SCH (09:31)
[2020-07-12] MEDS: PANTOPRAZOLE 20 MG TABLET PO SCH (09:31)
[2020-07-12] MEDS: metoPROLOL SUCCINATE 25 MG TAB.SR.24H (FP) PO SCH (09:31)
[2020-07-12] MEDS: DULoxetine HCL 20 MG CAPSULE.DR PO SCH (09:31)
[2020-07-12] MEDS: GABAPENTIN 100 MG CAPSULE PO SCH ×2 (09:32→21:17)
--- NOTE | 2020-07-12 10:06 | PN ---
Progress Note (short form) - Note Progress Note: Podiatry F/U: Seen/evaluated at bedside NAD. Pain controlled, denies F/V/N/C/SOB/CP. Afebrile. For thoracentesis hopefully today. Less pain to the left foot. [place]: L foot: pedal pulses weakly palpable, TG wnl, CFT brisk to all digits. There are no ischemic changes to the foot. The foot is warm and well perfused. There is a fifth metatarsal base diabetic ulcer with mixed fibrogranular base, regular borders. The ulcer probes to bone. There is serous drainage. There is no purulent drainage, no fluctuance, no soft tissue crepitus, no streaking cellulitis, no signs of infection. Resolved periwound erythema. Wound Cx: MRSA, enterobacter Imp: 70 year old diabetic male with left fifth metatarsal base diabetic ulcer 1. IV abx per infectious disease. Per Dr. Null, will treat with vancomycin and ceftazidime post-HD 2. Will need home nursing services with algidex packing with dry sterile dressing changed every other day 3. Partial WB L heel with surgical shoe 4. Will need f/u with me in wound healing center 07/18/20. [phone] Arsalan Powell DPM
[2020-07-12] MEDS: MECLIZINE HCL 12.5 MG TABLET PO PRN ×2 (10:19→21:16)
[2020-07-12] MEDS ORDERED: INSULIN (NOVOLOG) ASPART 100 UNITS/ML 10ML VIAL ONE ×2 (12:01→21:03)
--- NOTE | 2020-07-12 12:04 | PN ---
Progress Note, Physician History of Present Illness: stable no new issues - Current Medication List Current Medications: Active Medications Acetaminophen (Tylenol -) 650 mg PO Q4H PRN PRN Reason: FEVER Last Admin: 07/11/20 12:40 Dose: 650 mg Documented by: Amlodipine Besylate (Norvasc -) 5 mg PO DAILY [facility] Last Admin: 07/12/20 09:31 Dose: 5 mg Documented by: Doxycycline Hyclate (Vibramycin -) 100 mg PO BID@1000,1800 [facility] Last Admin: 07/12/20 09:31 Dose: 100 mg Documented by: Duloxetine HCl (Cymbalta -) 40 mg PO DAILY [facility] Last Admin: 07/12/20 09:31 Dose: 40 mg Documented by: Epoetin Errol (Procrit -) 20,000 unit IVPUSH ONCE ONE Stop: 07/12/20 08:01 Gabapentin (Neurontin -) 100 mg PO BID [facility] Last Admin: 07/12/20 09:32 Dose: 100 mg Documented by: Guaifenesin (Robitussin -) 5 ml PO Q8H PRN PRN Reason: COUGH Heparin Sodium (Porcine) (Heparin -) 1,000 unit IVPUSH PRN PRN PRN Reason: Heparin Last Admin: 07/11/20 12:42 Dose: 1,000 unit Documented by: Heparin Sodium (Porcine) (Heparin -) 5,000 unit IVPUSH PRN PRN PRN Reason: Heparin Last Admin: 07/10/20 21:59 Dose: 5,000 unit Documented by: Piperacillin Sod/Tazobactam (Sod 2.25 gm/ Dextrose) 50 mls @ 100 mls/hr IVPB Q8H-IV [facility]; Protocol Last Admin: 07/12/20 09:31 Dose: 100 mls/hr Documented by: HEPARIN SOD,PORK IN 0.45% NACL (Heparin-1/2ns 25,000 Units/500) 25,000 units in 500 mls @ 20 mls/hr IVPB TITR [facility]; Protocol Last Admin: 07/11/20 12:41 Dose: 1,250 units/hr, 25 mls/hr Documented by: Sodium Chloride (Normal Saline -) 250 mls @ 3,000 mls/hr IV PRN PRN PRN Reason: Hypotension during Dialysis Stop: 07/12/20 18:58 Vancomycin HCl (Vancomycin (Pre-Docked)) 1,000 mg in 250 mls @ 166.667 mls/hr IVPB ONCE ONE; Protocol Stop: 07/12/20 10:29 Insulin Aspart (Novolog Vial Sliding Scale -) 1 vial SQ [facility]; Protocol Last Admin: 07/12/20 06:51 Dose: Not Given Documented by: Insulin Detemir (Levemir Vial) 30 units SQ [facility] Last Admin: 07/11/20 22:53 Dose: 30 units Documented by: Meclizine HCl (Antivert -) 12.5 mg PO Q6HPO PRN PRN Reason: VERTIGO Last Admin: 07/12/20 10:19 Dose: 12.5 mg Documented by: Metoprolol Succinate (Toprol Xl -) 25 mg PO DAILY [facility] Last Admin: 07/12/20 09:31 Dose: 25 mg Documented by: Ondansetron HCl (Zofran Injection) 4 mg IVPUSH Q6H PRN PRN Reason: NAUSEA AND/OR VOMITING Pantoprazole Sodium (Protonix -) 20 mg PO DAILY [facility] Last Admin: 07/12/20 09:31 Dose: 20 mg Documented by: Senna (Senna -) 1 tab PO HS PRN PRN Reason: CONSTIPATION Last Admin: 07/11/20 01:02 Dose: 1 tab Documented by: Sevelamer Carbonate (Renvela -) 800 mg PO TIDCM [facility] Last Admin: 07/12/20 08:42 Dose: 800 mg Documented by: Sodium Bicarbonate (Sodium Bicarbonate -) 650 mg PO BID [facility] Last Admin: 07/12/20 09:31 Dose: 650 mg Documented by: Zolpidem Tartrate (Ambien -) 5 mg PO HS PRN PRN Reason: INSOMNIA Last Admin: 07/11/20 22:37 Dose: 5 mg Documented by: - Objective Vital Signs: Vital Signs Temperature 98.0 F 07/12/20 10:00 Pulse Rate 66 07/12/20 10:00 Respiratory Rate 20 07/12/20 10:00 Blood Pressure 148/65 07/12/20 10:00 O2 Sat by Pulse Oximetry (%) 97 07/12/20 10:00 Constitutional: Yes: No Distress, Calm Cardiovascular: Yes: S1, S2 Respiratory: Yes: Regular, CTA Bilaterally Gastrointestinal: Yes: Normal Bowel Sounds, Soft Musculoskeletal: Yes: WNL Extremities: Yes: Other Neurological: Yes: Alert, Oriented Psychiatric: Yes: Alert, Oriented Labs: CBC, BMP 07/12/20 07:10 07/10/20 18:08 INR, PTT INR 1.17 (0.83-1.09) H 07/10/20 02:08 Assessment/Plan Problem List - Problems (1) Cellulitis Code(s): L03.90 - CELLULITIS, UNSPECIFIED (2) Diabetes Code(s): E11.9 - TYPE 2 DIABETES MELLITUS WITHOUT COMPLICATIONS (3) CHF (congestive heart failure) Code(s): I50.9 - HEART FAILURE, UNSPECIFIED (4) Diabetic neuropathy Code(s): E11.40 - TYPE 2 DIABETES MELLITUS WITH DIABETIC NEUROPATHY, UNSP (5) ESRF (end stage renal failure) Code(s): N18.6 - END STAGE RENAL DISEASE (6) Hx of CABG Code(s): Z95.1 - PRESENCE OF AORTOCORONARY BYPASS GRAFT (7) PAD (peripheral artery disease) Code(s): I73.9 - PERIPHERAL VASCULAR DISEASE, UNSPECIFIED (8) CAD (coronary artery disease) Code(s): I25.10 - ATHSCL HEART DISEASE OF [place] CORONARY ARTERY W/O ANG PCTRS Qualifiers: Coronary Disease-Associated Artery/Lesion type: [place] artery [place] vs. transplanted heart: [place] heart Associated angina: without angina Qualified Code(s): I25.10 - Atherosclerotic heart disease of [place] coronary artery without angina pectoris (9) Hyperlipidemia Code(s): E78.5 - HYPERLIPIDEMIA, UNSPECIFIED Qualifiers: Hyperlipidemia type: pure hypercholesterolemia Qualified Code(s): E78.00 - Pure hypercholesterolemia, unspecified; E78.0 - Pure hypercholesterolemia (10) Hypertension Code(s): I10 - ESSENTIAL (PRIMARY) HYPERTENSION Qualifiers: Hypertension type: essential hypertension Qualified Code(s): I10 - Essential (primary) hypertension (11) PVD (peripheral vascular disease) Code(s): I73.9 - PERIPHERAL VASCULAR DISEASE, UNSPECIFIED Assessment/Plan LLE cellulitis/foot abscess - s/p drainage Diabetic foot ulcer Fever Leukocytosis Neuropathy PVD CAD s/p CABG CKD we can use vanco and cefatrzidine during dialysis discused with nephro give it for another 4 weeks
[2020-07-12] MEDS ORDERED: VANCOMYCIN 1,000 MG in DEXTROSE 5%-WATER - 250 ML IVPB ONE (12:07)
--- NOTE | 2020-07-12 13:23 | PN ---
Progress Note, Physician Chief Complaint: Weakness History of Present Illness: Seen and examined at the bedside awake and alert no acute complaints denies any CP, shortness of breath, palpitations making urine for thoracentesis today - Current Medication List Current Medications: Active Medications Acetaminophen (Tylenol -) 650 mg PO Q4H PRN PRN Reason: FEVER Last Admin: 07/11/20 12:40 Dose: 650 mg Documented by: Amlodipine Besylate (Norvasc -) 5 mg PO DAILY [facility] Last Admin: 07/12/20 09:31 Dose: 5 mg Documented by: Duloxetine HCl (Cymbalta -) 40 mg PO DAILY [facility] Last Admin: 07/12/20 09:31 Dose: 40 mg Documented by: Epoetin Errol (Procrit -) 20,000 unit IVPUSH ONCE ONE Stop: 07/12/20 08:01 Gabapentin (Neurontin -) 100 mg PO BID [facility] Last Admin: 07/12/20 09:32 Dose: 100 mg Documented by: Guaifenesin (Robitussin -) 5 ml PO Q8H PRN PRN Reason: COUGH Heparin Sodium (Porcine) (Heparin -) 1,000 unit IVPUSH PRN PRN PRN Reason: Heparin Last Admin: 07/11/20 12:42 Dose: 1,000 unit Documented by: Heparin Sodium (Porcine) (Heparin -) 5,000 unit IVPUSH PRN PRN PRN Reason: Heparin Last Admin: 07/10/20 21:59 Dose: 5,000 unit Documented by: HEPARIN SOD,PORK IN 0.45% NACL (Heparin-1/2ns 25,000 Units/500) 25,000 units in 500 mls @ 20 mls/hr IVPB [facility]; Protocol Last Admin: 07/11/20 12:41 Dose: 1,250 units/hr, 25 mls/hr Documented by: Sodium Chloride (Normal Saline -) 250 mls @ 3,000 mls/hr IV PRN PRN PRN Reason: Hypotension during Dialysis Stop: 07/12/20 18:58 Vancomycin HCl (Vancomycin (Pre-Docked)) 1,000 mg in 250 mls @ 166.667 mls/hr IVPB ONCE ONE; Protocol Stop: 07/12/20 10:29 Ceftazidime 1 gm/ Dextrose 100 mls @ 200 mls/hr IVPB ONCE ONE; Protocol Stop: 07/12/20 12:44 Insulin Aspart (Novolog Vial Sliding Scale -) 1 vial SQ [facility]; Protocol Last Admin: 07/12/20 12:18 Dose: 2 units Documented by: Insulin Detemir (Levemir Vial) 30 units SQ [facility] Last Admin: 07/11/20 22:53 Dose: 30 units Documented by: Meclizine HCl (Antivert -) 12.5 mg PO Q6HPO PRN PRN Reason: VERTIGO Last Admin: 07/12/20 10:19 Dose: 12.5 mg Documented by: Metoprolol Succinate (Toprol Xl -) 25 mg PO DAILY [facility] Last Admin: 07/12/20 09:31 Dose: 25 mg Documented by: Ondansetron HCl (Zofran Injection) 4 mg IVPUSH Q6H PRN PRN Reason: NAUSEA AND/OR VOMITING Pantoprazole Sodium (Protonix -) 20 mg PO DAILY [facility] Last Admin: 07/12/20 09:31 Dose: 20 mg Documented by: Senna (Senna -) 1 tab PO HS PRN PRN Reason: CONSTIPATION Last Admin: 07/11/20 01:02 Dose: 1 tab Documented by: Sevelamer Carbonate (Renvela -) 800 mg PO TIDCM [facility] Last Admin: 07/12/20 12:15 Dose: 800 mg Documented by: Sodium Bicarbonate (Sodium Bicarbonate -) 650 mg PO BID [facility] Last Admin: 07/12/20 09:31 Dose: 650 mg Documented by: Zolpidem Tartrate (Ambien -) 5 mg PO HS PRN PRN Reason: INSOMNIA Last Admin: 07/11/20 22:37 Dose: 5 mg Documented by: - Objective Vital Signs: Vital Signs Temperature 98.0 F 07/12/20 10:00 Pulse Rate 66 07/12/20 10:00 Respiratory Rate 20 07/12/20 10:00 Blood Pressure 148/65 07/12/20 10:00 O2 Sat by Pulse Oximetry (%) 97 07/12/20 10:00 Constitutional: Yes: No Distress, Calm HENT: Yes: Atraumatic Neck: Yes: Supple Cardiovascular: Yes: Regular Rate and Rhythm. No: Murmur, Rub Respiratory: Yes: Regular, Diminished. No: Rales, Rhonchi, SOB Gastrointestinal: Yes: Soft, Abdomen, Obese. No: Tenderness Genitourinary: No: Bladder Distention Extremities: No: Cyanosis Edema: No Labs: CBC, BMP 07/12/20 07:10 07/10/20 18:08 INR, PTT INR 1.17 (0.83-1.09) H 07/10/20 02:08 Assessment/Plan 70 year old male with history of CKD stage 4/5, IDDM, hypertension, hyperlipidemia, BOBY, CHF, Aflutter, PVD who presented from home with a fall and generalized weakness and noted to have left lower extremity cellulitis with leukocytosis/WBC of 20k and Cr of 4.5. 1. Lower extremity cellulitis/ non-healing wound. 2. CKD stage 5 now ESRD on HD 3. Anemia 4. Hx of CHF w/o evidence of acute exacerbation 5. Hypertension 6. Hyperlipidemia 7. Pleural effusion 8. Dizziness r/o orthostatic hypotension vs. vertigo Dialysis later today with UF as tolerated CXR shows persistent collection at the lung base, planned for US guided thoracentesis today Outpatient dialysis placement secured at [facility], to start on Friday. Meclazine Q6h for dizziness. Will need ENT evaluation as an outpatient. To continue Vanco and Ceftazidine for 3 more week with dialysis per ID Imaging studies showed no abcess or collection Renal diet discharge planning as per primary team Thank you Jonah Painting DO
[2020-07-12] MEDS ORDERED: CEFTAZIDIME PENTAHYDRATE 1 GM in DEXTROSE 5%-WATER - 100 ML IVPB ONE (15:45)
[2020-07-12] MEDS ORDERED: SODIUM CHLORIDE 250 ML IV PRN (15:48)
[2020-07-12] MEDS ORDERED: EPOETIN ALFA 20,000 UNIT/1 ML VIAL IVPUSH ONE (16:00)
--- NOTE | 2020-07-12 17:08 | PN ---
Progress Note, Physician - Current Medication List Current Medications: Active Medications Acetaminophen (Tylenol -) 650 mg PO Q4H PRN PRN Reason: FEVER Last Admin: 07/11/20 12:40 Dose: 650 mg Documented by: Amlodipine Besylate (Norvasc -) 5 mg PO DAILY [facility] Last Admin: 07/12/20 09:31 Dose: 5 mg Documented by: Duloxetine HCl (Cymbalta -) 40 mg PO DAILY [facility] Last Admin: 07/12/20 09:31 Dose: 40 mg Documented by: Gabapentin (Neurontin -) 100 mg PO BID [facility] Last Admin: 07/12/20 09:32 Dose: 100 mg Documented by: Guaifenesin (Robitussin -) 5 ml PO Q8H PRN PRN Reason: COUGH Heparin Sodium (Porcine) (Heparin -) 1,000 unit IVPUSH PRN PRN PRN Reason: Heparin Last Admin: 07/11/20 12:42 Dose: 1,000 unit Documented by: Heparin Sodium (Porcine) (Heparin -) 5,000 unit IVPUSH PRN PRN PRN Reason: Heparin Last Admin: 07/10/20 21:59 Dose: 5,000 unit Documented by: HEPARIN SOD,PORK IN 0.45% NACL (Heparin-1/2ns 25,000 Units/500) 25,000 units in 500 mls @ 20 mls/hr IVPB TITR [facility]; Protocol Last Admin: 07/11/20 12:41 Dose: 1,250 units/hr, 25 mls/hr Documented by: Sodium Chloride (Normal Saline -) 250 mls @ 3,000 mls/hr IV PRN PRN PRN Reason: Hypotension during Dialysis Stop: 07/12/20 22:00 Vancomycin HCl (Vancomycin (Pre-Docked)) 1,000 mg in 250 mls @ 166.667 mls/hr IVPB ONCE ONE; Protocol Stop: 07/12/20 17:29 Insulin Aspart (Novolog Vial Sliding Scale -) 1 vial SQ [facility]; Protocol Last Admin: 07/12/20 12:18 Dose: 2 units Documented by: Insulin Detemir (Levemir Vial) 30 units SQ HS [facility] Last Admin: 07/11/20 22:53 Dose: 30 units Documented by: Meclizine HCl (Antivert -) 12.5 mg PO Q6HPO PRN PRN Reason: VERTIGO Last Admin: 07/12/20 10:19 Dose: 12.5 mg Documented by: Metoprolol Succinate (Toprol Xl -) 25 mg PO DAILY [facility] Last Admin: 07/12/20 09:31 Dose: 25 mg Documented by: Ondansetron HCl (Zofran Injection) 4 mg IVPUSH Q6H PRN PRN Reason: NAUSEA AND/OR VOMITING Pantoprazole Sodium (Protonix -) 20 mg PO DAILY [facility] Last Admin: 07/12/20 09:31 Dose: 20 mg Documented by: Senna (Senna -) 1 tab PO HS PRN PRN Reason: CONSTIPATION Last Admin: 07/11/20 01:02 Dose: 1 tab Documented by: Sevelamer Carbonate (Renvela -) 800 mg PO TIDCM [facility] Last Admin: 07/12/20 12:15 Dose: 800 mg Documented by: Sodium Bicarbonate (Sodium Bicarbonate -) 650 mg PO BID [facility] Last Admin: 07/12/20 09:31 Dose: 650 mg Documented by: Zolpidem Tartrate (Ambien -) 5 mg PO HS PRN PRN Reason: INSOMNIA Last Admin: 07/11/20 22:37 Dose: 5 mg Documented by: - Objective Vital Signs: Vital Signs Temperature 97.8 F 07/12/20 16:23 Pulse Rate 62 07/12/20 16:23 Respiratory Rate 20 07/12/20 16:23 Blood Pressure 143/63 07/12/20 16:23 O2 Sat by Pulse Oximetry (%) 95 07/12/20 16:23 Labs: CBC, BMP 07/12/20 07:10 07/10/20 18:08 INR, PTT INR 1.17 (0.83-1.09) H 07/10/20 02:08 Problem List - Problems (1) Cellulitis Code(s): L03.90 - CELLULITIS, UNSPECIFIED (2) Cough Code(s): R05 - COUGH (3) ESRF (end stage renal failure) Code(s): N18.6 - END STAGE RENAL DISEASE (4) Hypertension Code(s): I10 - ESSENTIAL (PRIMARY) HYPERTENSION Qualifiers: Hypertension type: essential hypertension Qualified Code(s): I10 - Esse ntial (primary) hypertension (5) Diabetes Code(s): E11.9 - TYPE 2 DIABETES MELLITUS WITHOUT COMPLICATIONS (6) CHF (congestive heart failure) Code(s): I50.9 - HEART FAILURE, UNSPECIFIED (7) Diabetic neuropathy Code(s): E11.40 - TYPE 2 DIABETES MELLITUS WITH DIABETIC NEUROPATHY, UNSP (8) Hx of CABG Code(s): Z95.1 - PRESENCE OF AORTOCORONARY BYPASS GRAFT (9) CAD (coronary artery disease) Code(s): I25.10 - ATHSCL HEART DISEASE OF [place] CORONARY ARTERY W/O ANG PCTRS Qualifiers: Coronary Disease-Associated Artery/Lesion type: [place] artery [place] vs. transplanted heart: [place] heart Associated angina: without angina Qualified Code(s): I25.10 - Atherosclerotic heart disease of [place] coronary artery without angina pectoris (10) Hyperlipidemia Code(s): E78.5 - HYPERLIPIDEMIA, UNSPECIFIED Qualifiers: Hyperlipidemia type: pure hypercholesterolemia Qualified Code(s): E78.00 - Pure hypercholesterolemia, unspecified; E78.0 - Pure hypercholesterolemia (11) PVD (peripheral vascular disease) Code(s): I73.9 - PERIPHERAL VASCULAR DISEASE, UNSPECIFIED
[2020-07-12 19:12] LABS: CALCIUM 7.5 mg/dL (8.5-10.1); CREATININE 3.8 mg/dL (0.55-1.3); PHOSPHOROUS 3.9 mg/dL (2.5-4.9); POTASSIUM 3.9 mmol/L (3.5-5.1)
[2020-07-12] MEDS: ZOLPIDEM TARTRATE 5 MG TABLET PO PRN (21:17)
[2020-07-12] MEDS: SENNOSIDES 8.6MG TABLET (FP) PO PRN (21:18)
[2020-07-12] MEDS: INSULIN (LEVEMIR) 100 UNITS/ML UNITS SQ SCH (21:21)
[2020-07-13] MEDS: APIXABAN 2.5 MG TABLET PO SCH ×2 (05:29→09:39)
[2020-07-13] MEDS: INSULIN SLIDING SCALE (NOVOLOG) 1 VIAL SQ SCH ×3 (06:17→16:42)
[2020-07-13 07:53] LABS: BF WBC & OTHER NUCLEATED CELLS 334 /mm3
[2020-07-13 08:07] LABS: HEMOGLOBIN 9.7 GM/dL (11.7-16.9); MCHC 31.3 g/dl (32.0-35.9); MEAN PLT VOLUME 8.1 fl (7.5-11.1); PLATELET COUNT 386 K/MM3 (134-434); RBC 3.74 M/mm3 (4.00-5.60); RDW 15.6 % (11.9-15.9); WHITE BLOOD COUNT 9.4 K/mm3 (4.0-10.0)
--- NOTE | 2020-07-13 09:03 | PN ---
Progress Note, Physician History of Present Illness: patient post thoracentesis stable - Current Medication List Current Medications: Active Medications Acetaminophen (Tylenol -) 650 mg PO Q4H PRN PRN Reason: FEVER Last Admin: 07/11/20 12:40 Dose: 650 mg Documented by: Amlodipine Besylate (Norvasc -) 5 mg PO DAILY [facility] Last Admin: 07/12/20 09:31 Dose: 5 mg Documented by: Apixaban (Eliquis -) 2.5 mg PO BID [facility] Last Admin: 07/13/20 05:29 Dose: 2.5 mg Documented by: Duloxetine HCl (Cymbalta -) 40 mg PO DAILY [facility] Last Admin: 07/12/20 09:31 Dose: 40 mg Documented by: Gabapentin (Neurontin -) 100 mg PO BID [facility] Last Admin: 07/12/20 21:17 Dose: 100 mg Documented by: Guaifenesin (Robitussin -) 5 ml PO Q8H PRN PRN Reason: COUGH Insulin Aspart (Novolog Vial Sliding Scale -) 1 vial SQ [facility]; Protocol Last Admin: 07/13/20 06:17 Dose: Not Given Documented by: Insulin Detemir (Levemir Vial) 30 units SQ [facility] Last Admin: 07/12/20 21:21 Dose: 30 units Documented by: Meclizine HCl (Antivert -) 12.5 mg PO Q6HPO PRN PRN Reason: VERTIGO Last Admin: 07/12/20 21:16 Dose: 12.5 mg Documented by: Metoprolol Succinate (Toprol Xl -) 25 mg PO DAILY [facility] Last Admin: 07/12/20 09:31 Dose: 25 mg Documented by: Ondansetron HCl (Zofran Injection) 4 mg IVPUSH Q6H PRN PRN Reason: NAUSEA AND/OR VOMITING Pantoprazole Sodium (Protonix -) 20 mg PO DAILY [facility] Last Admin: 07/12/20 09:31 Dose: 20 mg Documented by: Senna (Senna -) 1 tab PO HS PRN PRN Reason: CONSTIPATION Last Admin: 07/12/20 21:18 Dose: 1 tab Documented by: Sevelamer Carbonate (Renvela -) 800 mg PO TIDCM [facility] Last Admin: 07/12/20 17:36 Dose: Not Given Documented by: Sodium Bicarbonate (Sodium Bicarbonate -) 650 mg PO BID [facility] Last Admin: 07/12/20 21:17 Dose: 650 mg Documented by: Zolpidem Tartrate (Ambien -) 5 mg PO HS PRN PRN Reason: INSOMNIA Last Admin: 07/12/20 21:17 Dose: 5 mg Documented by: - Objective Vital Signs: Vital Signs Temperature 99.1 F 07/13/20 08:49 Pulse Rate 70 07/13/20 08:49 Respiratory Rate 18 07/13/20 08:49 Blood Pressure 143/59 L 07/13/20 08:49 O2 Sat by Pulse Oximetry (%) 95 07/13/20 08:49 Constitutional: Yes: No Distress, Calm Cardiovascular: Yes: S1, S2 Respiratory: Yes: Regular, CTA Bilaterally Gastrointestinal: Yes: Normal Bowel Sounds, Soft Musculoskeletal: Yes: WNL Extremities: Yes: WNL Neurological: Yes: Alert, Oriented Psychiatric: Yes: Alert, Oriented Labs: CBC, BMP 07/13/20 06:15 07/12/20 17:10 INR, PTT INR 1.17 (0.83-1.09) H 07/10/20 02:08 Assessment/Plan Problem List - Problems (1) Cellulitis Code(s): L03.90 - CELLULITIS, UNSPECIFIED (2) Diabetes Code(s): E11.9 - TYPE 2 DIABETES MELLITUS WITHOUT COMPLICATIONS (3) CHF (congestive heart failure) Code(s): I50.9 - HEART FAILURE, UNSPECIFIED (4) Diabetic neuropathy Code(s): E11.40 - TYPE 2 DIABETES MELLITUS WITH DIABETIC NEUROPATHY, UNSP (5) ESRF (end stage renal failure) Code(s): N18.6 - END STAGE RENAL DISEASE (6) Hx of CABG Code(s): Z95.1 - PRESENCE OF AORTOCORONARY BYPASS GRAFT (7) PAD (peripheral artery disease) Code(s): I73.9 - PERIPHERAL VASCULAR DISEASE, UNSPECIFIED (8) CAD (coronary artery disease) Code(s): I25.10 - ATHSCL HEART DISEASE OF [place] CORONARY ARTERY W/O ANG PCTRS Qualifiers: Coronary Disease-Associated Artery/Lesion type: [place] artery [place] vs. transplanted heart: [place] heart Associated angina: without angina Qualified Code(s): I25.10 - Atherosclerotic heart disease of [place] coronary artery without angina pectoris (9) Hyperlipidemia Code(s): E78.5 - HYPERLIPIDEMIA, UNSPECIFIED Qualifiers: Hyperlipidemia type: pure hypercholesterolemia Qualified Code(s): E78.00 - Pure hypercholesterolemia, unspecified; E78.0 - Pure hypercholesterolemia (10) Hypertension Code(s): I10 - ESSENTIAL (PRIMARY) HYPERTENSION Qualifiers: Hypertension type: essential hypertension Qualified Code(s): I10 - Essential (primary) hypertension (11) PVD (peripheral vascular disease) Code(s): I73.9 - PERIPHERAL VASCULAR DISEASE, UNSPECIFIED Assessment/Plan LLE cellulitis/foot abscess - s/p drainage Diabetic foot ulcer Fever Leukocytosis Neuropathy PVD CAD s/p CABG CKD plan abx as planned rest as per the team
[2020-07-13] MEDS: SEVELAMER CARBONATE 800 MG TAB (FP) PO SCH ×3 (09:38→16:55)
[2020-07-13] MEDS: SODIUM BICARBONATE 650 MG TABLET PO SCH (09:38)
[2020-07-13] MEDS: amLODIPine BESYLATE 5 MG TABLET (FP) PO SCH (09:39)
[2020-07-13] MEDS: PANTOPRAZOLE 20 MG TABLET PO SCH (09:39)
[2020-07-13] MEDS: DULoxetine HCL 20 MG CAPSULE.DR PO SCH (09:39)
[2020-07-13] MEDS: metoPROLOL SUCCINATE 25 MG TAB.SR.24H (FP) PO SCH (09:39)
[2020-07-13] MEDS: GABAPENTIN 100 MG CAPSULE PO SCH (09:39)
--- NOTE | 2020-07-13 10:17 | PN ---
Progress Note (short form) - Note Progress Note: PULMONARY s/p left thoracentesis draining 1L serosanguinous fluid. States breathing improved s/p thoracentesis. Denies shortness of breath, cough. No fevers. Vital Signs Period Temp Pulse Resp BP Sys/Snow Pulse Ox Last 24 Hr 97.5 F-99.1 F 60-78 18-20 135-157/57-77 95-98 Gen: NAD at rest Heart: RRR Lung: decreased breath sounds at the bases Abd: soft, nontender Ext: no edema CBC, BMP 07/13/20 06:15 07/12/20 17:10 Active Medications Acetaminophen (Tylenol -) 650 mg PO Q4H PRN PRN Reason: FEVER Last Admin: 07/11/20 12:40 Dose: 650 mg Documented by: Amlodipine Besylate (Norvasc -) 5 mg PO DAILY [facility] Last Admin: 07/13/20 09:39 Dose: 5 mg Documented by: Apixaban (Eliquis -) 2.5 mg PO BID [facility] Last Admin: 07/13/20 09:39 Dose: 2.5 mg Documented by: Duloxetine HCl (Cymbalta -) 40 mg PO DAILY [facility] Last Admin: 07/13/20 09:39 Dose: 40 mg Documented by: Gabapentin (Neurontin -) 100 mg PO BID [facility] Last Admin: 07/13/20 09:39 Dose: 100 mg Documented by: Guaifenesin (Robitussin -) 5 ml PO Q8H PRN PRN Reason: COUGH Insulin Aspart (Novolog Vial Sliding Scale -) 1 vial SQ [facility]; Protocol Last Admin: 07/13/20 06:17 Dose: Not Given Documented by: Insulin Detemir (Levemir Vial) 30 units SQ [facility] Last Admin: 07/12/20 21:21 Dose: 30 units Documented by: Meclizine HCl (Antivert -) 12.5 mg PO Q6HPO PRN PRN Reason: VERTIGO Last Admin: 07/12/20 21:16 Dose: 12.5 mg Documented by: Metoprolol Succinate (Toprol Xl -) 25 mg PO DAILY [facility] Last Admin: 07/13/20 09:39 Dose: 25 mg Documented by: Ondansetron HCl (Zofran Injection) 4 mg IVPUSH Q6H PRN PRN Reason: NAUSEA AND/OR VOMITING Pantoprazole Sodium (Protonix -) 20 mg PO DAILY [facility] Last Admin: 07/13/20 09:39 Dose: 20 mg Documented by: Senna (Senna -) 1 tab PO HS PRN PRN Reason: CONSTIPATION Last Admin: 07/12/20 21:18 Dose: 1 tab Documented by: Sevelamer Carbonate (Renvela -) 800 mg PO TIDCM [facility] Last Admin: 07/13/20 09:38 Dose: 800 mg Documented by: Sodium Bicarbonate (Sodium Bicarbonate -) 650 mg PO BID [facility] Last Admin: 07/13/20 09:38 Dose: 650 mg Documented by: Zolpidem Tartrate (Ambien -) 5 mg PO HS PRN PRN Reason: INSOMNIA Last Admin: 07/12/20 21:17 Dose: 5 mg Documented by: A/P Left Pleural Effusion Acute on Chronic Diastolic Heart Failure Cellulitis ESRD on HD CAD s/p CABG h/o Atrial Flutter PAD HTN DM Anemia - antibiotics per ID - HD per renal - on anticoagulation - f/u pleural fluid chemistries, cultures, cytology - can f/u as outpt for results - DVT prophylaxis
[2020-07-13 10:46] LABS: BODY FLUID HISTIOCYTES 49 %; BODY FLUID MONOCYTE 2 %
--- NOTE | 2020-07-13 14:48 | PN ---
Progress Note, Physician Chief Complaint: Weakness History of Present Illness: Seen and examined at the bedside awake and alert no acute complaints denies any CP, shortness of breath, palpitations making urine s/p thoracentesis yesterday with ~1L of serosangrenous fluid removed - Current Medication List Current Medications: Active Medications Acetaminophen (Tylenol -) 650 mg PO Q4H PRN PRN Reason: FEVER Last Admin: 07/11/20 12:40 Dose: 650 mg Documented by: Amlodipine Besylate (Norvasc -) 5 mg PO DAILY [facility] Last Admin: 07/13/20 09:39 Dose: 5 mg Documented by: Apixaban (Eliquis -) 2.5 mg PO BID [facility] Last Admin: 07/13/20 09:39 Dose: 2.5 mg Documented by: Duloxetine HCl (Cymbalta -) 40 mg PO DAILY [facility] Last Admin: 07/13/20 09:39 Dose: 40 mg Documented by: Gabapentin (Neurontin -) 100 mg PO BID [facility] Last Admin: 07/13/20 09:39 Dose: 100 mg Documented by: Guaifenesin (Robitussin -) 5 ml PO Q8H PRN PRN Reason: COUGH Insulin Aspart (Novolog Vial Sliding Scale -) 1 vial SQ [facility]; Protocol Last Admin: 07/13/20 11:17 Dose: 2 units Documented by: Insulin Detemir (Levemir Vial) 30 units SQ [facility] Last Admin: 07/12/20 21:21 Dose: 30 units Documented by: Meclizine HCl (Antivert -) 12.5 mg PO Q6HPO PRN PRN Reason: VERTIGO Last Admin: 07/12/20 21:16 Dose: 12.5 mg Documented by: Metoprolol Succinate (Toprol Xl -) 25 mg PO DAILY [facility] Last Admin: 07/13/20 09:39 Dose: 25 mg Documented by: Ondansetron HCl (Zofran Injection) 4 mg IVPUSH Q6H PRN PRN Reason: NAUSEA AND/OR VOMITING Pantoprazole Sodium (Protonix -) 20 mg PO DAILY [facility] Last Admin: 07/13/20 09:39 Dose: 20 mg Documented by: Senna (Senna -) 1 tab PO HS PRN PRN Reason: CONSTIPATION Last Admin: 07/12/20 21:18 Dose: 1 tab Documented by: Sevelamer Carbonate (Renvela -) 800 mg PO TIDCM [facility] Last Admin: 07/13/20 11:26 Dose: 800 mg Documented by: Sodium Bicarbonate (Sodium Bicarbonate -) 650 mg PO BID [facility] Last Admin: 07/13/20 09:38 Dose: 650 mg Documented by: Zolpidem Tartrate (Ambien -) 5 mg PO HS PRN PRN Reason: INSOMNIA Last Admin: 07/12/20 21:17 Dose: 5 mg Documented by: - Objective Vital Signs: Vital Signs Temperature 99.1 F 07/13/20 08:49 Pulse Rate 70 07/13/20 08:49 Respiratory Rate 18 07/13/20 08:49 Blood Pressure 143/59 L 07/13/20 08:49 O2 Sat by Pulse Oximetry (%) 95 07/13/20 08:49 Constitutional: Yes: No Distress, Calm HENT: Yes: Atraumatic Neck: Yes: Supple Cardiovascular: Yes: Regular Rate and Rhythm Respiratory: Yes: Regular, Diminished. No: Rales, Rhonchi Gastrointestinal: Yes: Soft, Abdomen, Obese. No: Tenderness Extremities: No: Cyanosis Edema: No Neurological: Yes: Alert Labs: CBC, BMP 07/13/20 06:15 07/12/20 17:10 INR, PTT INR 1.17 (0.83-1.09) H 07/10/20 02:08 Assessment/Plan 70 year old male with history of CKD stage 4/5, IDDM, hypertension, hyperlipidem ia, BOBY, CHF, Aflutter, PVD who presented from home with a fall and generalized weakness and noted to have left lower extremity cellulitis with leukocytosis/WBC of 20k and Cr of 4.5. 1. Lower extremity cellulitis/ non-healing wound. 2. CKD stage 5 now ESRD on HD 3. Anemia 4. Hx of CHF w/o evidence of acute exacerbation 5. Hypertension 6. Hyperlipidemia 7. Pleural effusion 8. Dizziness r/o orthostatic hypotension vs. vertigo s/p dialysis yesterday with 2.5L UF, no acute need for dialysis today s/p thoracentesis, f/u cytolocygy Outpatient dialysis placement secured at [facility], to start on Friday. Meclazine Q6h for dizziness. Will need ENT evaluation as an outpatient. To continue Vanco and Ceftazidine for 3 more week with dialysis per ID Imaging studies showed no abcess or collection Renal diet discharge planning as per primary team stable for discharge form renal perspective. Thank you Jonah Painting DO
[2020-07-13 14:58] VITALS: BP 135/75; PULSE 69; TEMP 98.2
--- NOTE | 2020-07-13 15:23 | DS ---
Physical Examination Vital Signs: Vital Signs Temperature 98.2 F 07/13/20 14:56 Pulse Rate 69 07/13/20 14:56 Respiratory Rate 18 07/13/20 14:56 Blood Pressure 135/75 07/13/20 14:56 O2 Sat by Pulse Oximetry (%) 99 07/13/20 14:56 Labs: CBC, BMP 07/13/20 06:15 07/12/20 17:10 Discharge Summary Problems reviewed: Yes Reason For Visit: LEUKOCYTOSIS, WEAKNESS Current Active Problems Cellulitis (Acute) Cough (Acute) Diabetes (Acute) Near syncope (Acute) Weakness (Acute) ESRD on dialysis HTN HLD CAD CHF Aflutter PVD Hospital Course: Pt is a 70 year old male with history of CKD stage 4/5, IDDM, hypertension, hyperlipidemia, BOBY, CHF, CAD(S/P CABG), Aflutter, and PVD. Pt presented from home with a fall and generalized weakness and noted to have left lower extremity cellulitis with leukocytosis/WBC of 20k and Cr of 4.5. Pt was seen by vascular surgery/renal/pulmonary and had perma-cath placement and started on dialysis. Pt also had debridement and I&D of lt foot and has been on IV antibiotics wc he will continue for another 3 weeks during dialysis. Pt needs continued wound care at home. Condition: Good - Instructions Diet, Activity, Other Instructions: 2 gram sodium diabetic and renal diet See Dr Joaquín Adam in 1 week Patient to have dialysis tomorrow Patient to receive antibiotics with dialysis Referrals: Matt Garcia DO [Staff Physician] - Joaquín Adam MD [Primary Care Provider] - Disposition: HOME - Home Medications Comprehensive Discharge Medication List: Ambulatory Orders Aspirin Coated [Ecotrin -] 81 mg PO DAILY 11/18/17 Zolpidem Tartrate [Ambien] 10 mg PO HS 01/06/18 Duloxetine HCl 40 mg PO DAILY 07/20/19 Gabapentin [Neurontin -] 100 mg PO BID 04/12/20 Amlodipine Besylate [Norvasc -] 5 mg PO DAILY #30 tablet 04/18/20 Calcium 500Mg/Vit-D 200 Units [Os-Osvaldo 500+D -] 1 tab PO DAILY #30 tab 04/18/20 Metoprolol Succinate [Toprol XL -] 25 mg PO DAILY #30 tab.sr.24h 04/18/20 Insulin (Novolog 70/30) [Novolog Mix 70/30 Vial -] 35 units SQ BIDAC #0 units 05/23/20 Omeprazole 20 mg PO DAILY 06/07/20 Apixaban [Eliquis -] 2.5 mg PO BID tablet 06/09/20 Apixaban [Eliquis -] 2.5 mg PO BID tablet 07/13/20 Doxycycline Hyclate [Vibramycin -] 100 mg PO BID@1000,1800 #30 capsule 07/13/20 Meclizine HCl [Antivert -] 12.5 mg PO Q6HPO PRN tablet 07/13/20 Piperacillin/Tazob 2.25 gm [Zosyn -] 2.25 gm IVPB Q8H-IV vial 07/13/20 Sennosides [Senna -] 1 tab PO HS PRN #30 tablet 07/13/20 Sevelamer Carbonate [Renvela -] 800 mg PO TIDCM #90 tab 07/13/20 Sodium Bicarbonate - 650 mg PO BID #60 tablet 07/13/20 Zolpidem Tartrate [Ambien] 5 mg PO HS PRN tablet 07/13/20
[2020-07-13] MEDS: MECLIZINE HCL 12.5 MG TABLET PO PRN (17:25)
[2020-07-14 12:08] LABS: BODY FLUID ALBUMIN 1.4 g/dL (Not Estab.)
--- NOTE | 2020-07-17 10:39 | PATH ---
Cytology Non-Gynecological Report Patient Name: KATHERINE RODRIGUEZ Med. Rec. #: [id number] /Age/Gender: 1950 (Age: 70) / M Account: [id number] Location: [facility] Taken: 07/13/2020 Received: 07/13/2020 Reported: 07/17/2020 Physicians: Jenni Rueda M.D. Specimen(s) Received A: LEFT PLEURAL FLUID RECEIVED UNFIXED B: LEFT PLEURAL FLUID RECEIVED IN 50% ALCOHOL Clinical History Left pleural effusion Final Diagnosis A&B: PLEURAL FLUID, THORACENTESIS: SATISFACTORY FOR EVALUATION. NO MALIGNANT CELLS IDENTIFIED. MESOTHELIAL CELLS AND MACROPHAGES PRESENT. Electronically Signed Gildardo Atkinson M.D. Gross Description A. Approximately 1000cc of bloody fluid received fresh. One cytospin and one cellblock prepared. B. Approximately 50cc of bloody fluid received fixed in 50% alcohol. One cytospin and one cellblock prepared.
== END 2020-07-13 17:56 | disposition home or self-care (01) | DRG 299 ==
LOC: JER 21:51 → JERBED 06-28 05:48 → J7W 06-28 23:55
PROVIDERS: ADMIT Internal Medicine; ATTEND Internal Medicine
PROC: 0HDNXZZ Extraction of Left Foot Skin, External Approach (ICD-10-PCS; 2020-07-05)
PROC: 0Y9N0ZX Drainage of Left Foot, Open Approach, Diagnostic (ICD-10-PCS; 2020-07-05)
PROC: 30233N1 Transfusion of Nonautologous Red Blood Cells into Peripheral Vein, Percutaneous Approach (ICD-10-PCS; 2020-07-05)
PROC: 0JH63XZ Insertion of Tunneled Vascular Access Device into Chest Subcutaneous Tissue and Fascia, Percutaneous Approach (ICD-10-PCS; principal; 2020-07-11)
PROC: 05HM33Z Insertion of Infusion Device into Right Internal Jugular Vein, Percutaneous Approach (ICD-10-PCS; 2020-07-11)
PROC: B513ZZA Fluoroscopy of Right Jugular Veins, Guidance (ICD-10-PCS; 2020-07-11)
PROC: 0W9B3ZX Drainage of Left Pleural Cavity, Percutaneous Approach, Diagnostic (ICD-10-PCS; 2020-07-12)
PROC: 5A1D70Z Performance of Urinary Filtration, Intermittent, Less than 6 Hours Per Day (ICD-10-PCS; 2020-07-12)
DX: E11.51 Type 2 diabetes mellitus with diabetic peripheral angiopathy without gangrene (principal); N18.6 End stage renal disease; L03.116 Cellulitis of left lower limb; I13.2 Hypertensive heart and chronic kidney disease with heart failure and with stage 5 chronic kidney disease, or end stage renal disease; J90 Pleural effusion, not elsewhere classified; I50.32 Chronic diastolic (congestive) heart failure; I48.92 Unspecified atrial flutter; M86.9 Osteomyelitis, unspecified; E11.621 Type 2 diabetes mellitus with foot ulcer; D64.9 Anemia, unspecified; E78.5 Hyperlipidemia, unspecified; D72.829 Elevated white blood cell count, unspecified; L97.529 Non-pressure chronic ulcer of other part of left foot with unspecified severity; E11.40 Type 2 diabetes mellitus with diabetic neuropathy, unspecified; A49.02 Methicillin resistant Staphylococcus aureus infection, unspecified site; G47.33 Obstructive sleep apnea (adult) (pediatric); I25.10 Atherosclerotic heart disease of native coronary artery without angina pectoris; Z95.1 Presence of aortocoronary bypass graft; R42 Dizziness and giddiness; E11.69 Type 2 diabetes mellitus with other specified complication
CPT/HCPCS: 36415; 36430; 70450-TC; 71045-TC-FY; 71250-TC; 72125-TC; 72131-TC; 73700-TC-RT; 73718-TC-LT; 76000-TC-FY; 76942; 80048; 80053; 80074; 81003; 82042; 82150; 82465; 82550; 82553; 82803; 82945; 82962; 83036; 83605; 83615; 83735; 83986; 84100; 84157; 84478; 84484; 85025; 85027; 85610; 85730; 86850; 86900; 86901; 86922; 87040; 87070; 87075; 87086; 87102; 87116; 87186; 87205; 87206; 87210; 88108; 88305-TC; 93005; 93010; 94640; 94760; 97116-GP; 97162-GP; 99285-25; G0277; G0480; J0885; J1644; P9058; Q5106; U0003

== ENCOUNTER 2020-08-03 04:53 | Day surgery (SDC) | payer OTHER, BC ==
--- OUTSIDE RECORDS SUMMARY | 2020-07-28 14:43 | XMS ---
:1950 [facility] Organization [facility] Care Team Providers Name Role Phone CLIF MCKINNEY Unavailable Unavailable MILLY LINDSEY Unavailable Unavailable JUAN, MIAN Unavailable Unavailable GATES, DIWAKAR Unavailable Unavailable CHURCH, HUMAYUN Unavailable Unavailable EMERGENCY SERVICE, X Unavailable Unavailable Carolin (Gus), Cristóbal Holguin MD Unavailable Unavailable Carolin (Gus), Ezio MOHAN Unavailable Unavailable Carolin (Gus), M Unavailable Unavailable Carolin (Gus), M Unavailable Unavailable Carolin (Gus), M Unavailable Unavailable Carolin (Gus), M Unavailable Unavailable Carolin (Gus), M Unavailable Unavailable Carolin (Gus), M Unavailable Unavailable Carolin (Gus), M Unavailable Unavailable Carolin (Gus), M Unavailable Unavailable Carolin (Gus), M Unavailable Unavailable Carolin (Gus), M Unavailable Unavailable Carolin (Gus), M Unavailable Unavailable Carolin (Weber), M Unavailable Unavailable Caorlin (Gus), M MD Unavailable Unavailable Iwai Unavailable Unavailable Iwai Unavailable Unavailable Iwai Unavailable Unavailable Iwai Unavailable Unavailable Iwai Unavailable Unavailable Iwai Unavailable Unavailable Iwai Unavailable Unavailable Iwai Unavailable Unavailable Iwai Unavailable Unavailable Iwai Unavailable Unavailable Iwai Unavailable Unavailable MD Phyllis Unavailable Unavailable MD Phyllis Unavailable Unavailable MD Phyllis Unavailable Unavailable MD Phyllis Unavailable Unavailable MD Phyllis Unavailable Unavailable MD Phyllis Unavailable Unavailable MD Phyllis Unavailable Unavailable MD Phyllis Unavailable Unavailable MD Phyllis Unavailable Unavailable MD Phyllis Unavailable Unavailable MD Phyllis Unavailable Unavailable MD Phyllis Unavailable Unavailable MD Phyllis Unavailable Unavailable MD Phyllis Unavailable Unavailable JESS TURNER Unavailable Unavailable KRYSTYNA PRABHAKAR Unavailable Unavailable Re-disclosure Warning The records that you are about to access may contain information from federally- assisted alcohol or drug abuse programs. If such information is present, then the following federally mandated warning applies: This information has been disclosed to you from records protected by federal confidentiality rules (42 CFR part 2). The federal rules prohibit you from making any further disclosure of this information unless further disclosure is expressly permitted by the written consent of the person to whom it pertains or as otherwise permitted by 42 CFR part 2. A general authorization for the release of medical or other information is NOT sufficient for this purpose. The Federal rules restrict any use of the information to criminally investigate or prosecute any alcohol or drug abuse patient.The records that you are about to access may contain highly sensitive health information, the redisclosure of which is protected by Article 27-F of the [facility] Public Health law. If you continue you may haveaccess to information: Regarding HIV / AIDS; Provided by facilities licensed or operated by the [facility] Office of Mental Health; or Provided by the [facility] Office for People With Developmental Disabilities. If such information is present, then the following [facility] mandated warning applies: This information has been disclosed to you from confidential records which are protected by state law. State law prohibits you from making any further disclosure of this information without the specific written consent of the person to whom it pertains, or as otherwise permitted by law. Any unauthorized further disclosure in violation of state law may result in a fine or prison sentence or both. A general authorization for the release of medical or other information is NOT sufficient authorization for further disclosure. Allergies and Adverse Reactions Type Description Substance Reaction Status Data Source(s ) Drug allergy levofloxacin levofloxacin Vomiting [facility] Corporati on Drug allergy morphine morphine Vomiting [facility] Corporati on Drug allergy codeine [facility] Encounter Providers Location Date Indications Data Source(s ) Outpatient Attender: 01/17/2020 I25.10,I65.23 [facility], 06:00:00 AM Health Care ROBERTAttender: EDT Corporati on VANNA, TANYAAdmitter: CLIF MCKINNEYReferrer: CLIF MCKINNEY I25.10,I65.23 Emergency Attender: JOHNNY, 10/01/2019 FLUID KIDNEY [facility] SAMARAttender: 07:59:00 PM EST [facility] EMERGENCY SERVICE, Corpor ation XAdmitter: JESS TURNER FLUID KIDNEY Inpatient Attender: FAYE 08/31/2019 05:20:00 Z95.1 [facility] ROBERTAdmitter: PM EDT - 09/02/2019 Health Care FAYE, 05:30:00 PM EDT Corporat ion ROBERTReferrer: CLIF MCKINNEY Z95.1 Outpatient Attender: FAYE, 08/31/2019 08:14:00 Z95.1 [facility] ROBERTAdmitter: AM EDT Health Ca re [employer] ROBERTReferrer: CLIF MCKINNEY Z95.1 Outpatient Attender: FAYE, 08/31/2019 06:00:00 Z95.1 [facility] ROBERTAdmitter: AM EDT Health Ca re [employer] ROBERTReferrer: CLIF MCKINNEY Z95.1 Outpatient Attender: CHURCH, 08/25/2019 10:20:00 E11.65 [facility] LUISITOAYUNAttender: AM EDT Health are [employer] ROBERTAdmitter: SUZANNA CLARKUNReferrer: Daron Ferguson MD E11.65 Outpatient Attender: FAYE 08/13/2019 06:00:00 Z95.1 [facility] ROBERTAdmitter: AM EDT Health Ca re [employer] ROBERTReferrer: CLIF MCKINNEY Z95.1 Outpatient Attender: FAYE 08/10/2019 06:00:00 Z95.1 [facility] ROBERTAdmitter: AM EDT Health Ca re [employer] ROBERTReferrer: CLIF MCKINNEY Z95.1 Outpatient Attender: KODY, 07/23/2019 08:58:00 I25.10 [facility] DIWAKARAdmitter: GATES, AM EDT He alth Care DIWAKARReferrer: Corporat ion CLIF MCKINNEY I25.10 Outpatient Attender: KODY, 07/23/2019 06:00:00 I25.10 [facility] DIWAKARAdmitter: GATES, AM EDT He alth Care DIWAKARReferrer: Corporat ion CLIF MCKINNEY I25.10 Outpatient Attender: Sei 06/09/2019 06:39:00 I48.4 [facility] IwaiAdmitter: Sei AM EDT Health Care IwaiReferrer: Sei Iwai Co rporation I48.4 Outpatient Attender: Sei 06/09/2019 06:00:00 [facility]48.[facility] Care IwaiReferrer: Sei Iwai Co rporation I48.4 Outpatient Attender: JUAN, 05/24/2019 K21.9 R13.10 [facility] ASHUTOSHAdmitter: JUAN, 09:57:00 AM EDT Health Care ASHUTOSHReferrer: Theodore MARTINEZ orporation MIAN K21.9 R13.10 Outpatient Attender: JUAN, 05/24/2019 K21.9 R13.10 [facility] ASHUTOSHAdmitter: JUAN, 06:00:00 AM EDT Health Care ASHUTOSHReferrer: Theodore MARTINEZ orporation MIAN K21.9 R13.10 Outpatient Attender: JUAN, 04/27/2019 K21.9 R13.10 [facility] ASHUTOSHAdmitter: JUAN, 06:00:00 AM EDT Health Care ASHUTOSHReferrer: Theodore MARTINEZ orporation MIAN K21.9 R13.10 Outpatient Attender: CÉSAR, 03/23/2019 06:00:00 I65.22 [facility] MILLY RodriguezAdmitter: AM EDT Healt h Care MILLY LINDSEYReferrer: MILLY LINDSEY I65.22 Outpatient Attender: CÉSAR, 02/22/2019 06:00:00 M79.89 [facility] MILLY RodriguezAdmitter: AM EDT Healt Care CÉSAR [facility] MichaelReferrer: MILLY LINDSEY M79.89 Inpatient Attender: Cristóbal Coe 12/12/2018 02:01:00 PM TIA [facility] (Gus) MDAdmitter: Cristóbal EST - 12/18/2018 [facility] Carolin Oliveira) 06:00:00 PM EST TIA Medications Medication Brand Start Product Dose Route Administrative Pharmacy [facility] Indications Reaction Description Data Name Date Form Instructions Instructions Source(s) Metolazone metOLa UNK complet metOLaz one [place] 2.5 MG Oral zone 2019 MG ed 2.5 MG Oral [facility] Tablet 2.5 MG 11:39: Tablet Take He alth metOLazone Oral 22 PM one tablet Ca re 2.5 MG Oral Tablet EST once daily Corporatio Tablet in the n morning by mouth Dispense: 14 Supervising physician: Jean Paul Whitehead MD Lasix Lasix 10/01/ 40 mg UNK active Lasix [facility] ty (Furosemide ( 2019 (Furosemide ) r [facility] ) emide) 08:46: Injection Health 40 PM Give 40 mg Care EST IVP Corporatio n Medication administered onsite Ozempic [id number] 08/31/2019 pardeep Acuna (semaglutide) 12:00:00 AM [facility]0.25 [facility] dose (2 Corporati on mg/1.5]: 1 Unit Subcutaneous DIRECTED Zolpidem Ambien 08/31/2019 completed [place] tartrate 10 MG (Zolpidem) 12:00:00 AM [facility] Oral Tablet [10 mg [facility] Ambien Tablet]: 1 Corpora tion (Zolpidem) [10 Tablet Oral mg Tablet]: 1 BEDTIME Tablet Oral BEDTIME V-GO (Free Text 08/31/2019 completed [facility] Medication) [20 12:00:00 AM [facility] units]: 1 Unit EDT Healt h Care Subcutaneous Carmen oration DIRECTEDComment: continous insulin pump alpha lipic acid 08/31/2019 pardeep Acuna (Free Text 12:00:00 AM Co unty Medication) [250 EDT Hea lth Care mg]: 1 Tablet Corpor ation Oral DAILY pregabalin 100 Lyrica 08/31/2019 completed [facility] MG Oral Capsule (Pregabalin) 12:00:00 AM [facility] Lyrica [100 mg EDT Health Car e (Pregabalin) Capsule]: 1 Corporation [100 mg Tablet Oral 2 Capsule]: 1 TIMES A DAY Tablet Oral 2 TIMES A DAY Atorvastatin [40 [id number] 07/17/2017 completed [facility] mg Tablet]: 1 12:00:00 AM [facility] Tablet Oral EDT Health C are DAILY IN EVENING Cor poration Lyrica [id number] 07/17/2017 completed [place] (Pregabalin) [75 12:00:00 AM [facility] mg Capsule]: 1 EDT Healt h Care Tablet Oral 2 Corpor ation TIMES A DAY Gas Relief [id number] 07/17/2017 completed [place] (Simethicone) 12:00:00 AM [facility] [80 mg Tablet]: EDT Heal th Care 80 MG Oral Corporati on Q6HPRN PRN BLOATING Insulin Lispro Humalog completed [place] 100 UNT/ML (Insulin Count y Injectable Lispro) [100 H ealth Care Solution Humalog unit/mL Corporation (Insulin Vial]: Lispro) [100 Subcutaneous unit/mL Vial]: QHS Subcutaneous QHS Cymbalta [id number] completed Emiliano garrison (Duloxetine) [30 Cou nty mg]: 1 Capsule Healt h Care Oral DAILY IN Corpor ation MORNING Aspirin [325 mg [id number] completed [place] Tablet]: 1 [facility] Tablet Oral Health C are DAILY IN MORNING Cor poration Aspirin 81 MG aspirin 999 oral completed asp ir [place] Delayed Release MG in Coun ty Oral Capsule Health Care [YSP Aspirin] Corpor ation aspirin icosapent ethyl Vascepa 999 oral completed V asce [place] 1000 MG Oral MG pa [facility] Capsule Health Care [Vascepa] Corporatio n Diluting Medium Diluting 999 inject completed Dilut [place] for Novolog Medium for MG ion ing Co unty Novolog Mediu Health Care m for Corporation Novol og Amlodipine 10 MG amlodipine 999 oral completed amlod [place] Oral Tablet MG ipine [facility] [Norvasc] Health Car e amlodipine Corporati on atorvastatin 10 Lipitor 999 oral completed L ipit [place] MG Oral Tablet MG or Count y [Lipitor] Health Car e Corporation Lisinopril 2.5 lisinopril 999 oral completed lisin [place] MG Oral Tablet MG opril Coun ty [Prinivil] Health Ca re lisinopril Corporati on apixaban 5 MG Eliquis [5 mg completed [place] Oral Tablet Tablet]: 1 Co unty Eliquis [5 mg Tablet Oral 2 Health Care Tablet]: 1 TIMES A DAY Co rporation Tablet Oral 2 TIMES A DAY Cholecalciferol Vitamin D3 999 oral completed Vitam [place] 400 UNT Oral MG in D3 [facility] Capsule Vitamin [facility] D3 Corporation Aspirin 325 MG Aspirin [325 completed [place] Oral Tablet mg Tablet]: C ounty Aspirin [325 mg 325 MG Oral Health Care Tablet]: 325 MG Q10AM Cor poration Oral Q10AM Insulin Glargine Lantus completed [place] 100 UNT/ML (Insulin Count y Injectable Glargine) [facility] Solution Lantus [100 unit/mL Corporation (Insulin Unit]: 20 Glargine) [100 Unit unit/mL Unit]: Subcutaneous 20 Unit Q10AM Subcutaneous Q10AM Ambien [id number] completed Anibal strausster (Zolpidem) [10 Count y mg Tablet]: 1 Health Care Tablet Oral Corporat ion BEDTIME Zolpidem Ambien 999 oral completed Miguelangel sortohester tartrate 5 MG MG n [facility] Oral Tablet Health are [Ambien] Corporation Insulin Lispro Humalog completed [place] 100 UNT/ML (Insulin Count y Injectable Lispro) [100 H eauc health Care Solution Humalog unit/mL Corporation (Insulin Vial]: Lispro) [100 Subcutaneous unit/mL Vial]: W/MEALS Subcutaneous W/MEALS Sodium Kayexalate 999 oral completed [place] W estcarleenter polystyrene [facility] sulfonate 250 Health Care MG/ML Oral Corporati on Suspension [Kayexalate] Linagliptin 2.5 Jentadueto 999 oral discontinued Jenta [place] MG / Metformin MG dueto Coun ty hydrochloride Health Care 1000 MG Oral Corpora tion Tablet [Jentadueto] Metoprolol XL [id number] completed [place] [50 mg Tablet]: Coun ty 50 MG Oral Q10AM [facility]a [facility] Care [employer] Ferrous Sulfate [id number] completed [place] [325 mg (65 mg Count y iron) Tablet]: Healt h Care 325 MG Oral Corporat ion Q10AM ferrous sulfate ferrous 999 oral completed f erro [place] 134 MG Oral sulfate MG us Count y Tablet sulfa Health Care te Corporation Metformin metformin 999 oral discontinued me tfo [place] hydrochloride MG rmin [facility] 500 MG Oral Health C are Tablet [Orabet Corpo ration Metformin] metformin Vitamin B vitamin B 999 oral discontinued vi joya [place] Complex vitamin complex MG in B C ounty B complex compl Health Ca re ex Corporation Insulin Lispro Humalog completed [place] 100 UNT/ML (Insulin Count y Injectable Lispro) [100 H ealt Care Solution Humalog unit/mL Corporation (Insulin Vial]: 2 Unit Lispro) [100 Subcutaneous unit/mL Vial]: 2 W/MEALS Unit Subcutaneous W/MEALS Amlodipine 10 MG Amlodipine completed [place] Oral Tablet [10 mg [facility] Amlodipine [10 Tablet]: 10 Health Care mg Tablet]: 10 MG Oral Q8AM Corporation MG Oral Q8AM pregabalin 25 MG Lyrica 999 oral discontinued Flor [place] Oral Capsule MG a [facility] [Lyrica] [facility] Care [facility] Tramadol [50 mg [id number] completed [place] Tablet]: 50 MG Count y Oral Q6HPRN PRN [facility] Corporation duloxetine 60 MG Duloxetine completed [place] Delayed Release [60 mg Co unty Oral Capsule Capsule DR]: [facility] Duloxetine [60 60 MG Oral Corporation mg Capsule DR]: Q10AM 60 MG Oral Q10AM 24 HR metoprolol metoprolol 999 oral completed metop [place] succinate 25 MG succinate [facility] Extended Release succi He alth [facility] Oral Tablet sukhdev Corporat ion [Toprol] duloxetine 60 MG duloxetine 999 oral completed dulox [place] Delayed Release MG etine Cou nty Oral Capsule [facility] [Cymbalta] Corporati on 1.5 ML Insulin insulin 999 subcut discontinued insul [place] Glargine 300 glargine MG aneous in C ounty UNT/ML Pen glarg Health C are Injector [facility] Corporation [Toujeo] insulin glargine Famotidine 20 MG Famotidine completed [place] Oral Tablet [20 mg [facility] Famotidine [20 Tablet]: 40 Health Care mg Tablet]: 40 MG Oral Q10AM Corporation MG Oral Q10AM pregabalin 100 Lyrica 999 oral completed Lyr ic [place] MG Oral Capsule MG a Coun ty [Lyrica] Electric Imp Care [employer] Aspirin 81 MG Aspir-81 completed [place] Delayed Release (Aspirin) [81 County Oral Tablet mg]: 1 Tablet [facility] Aspir-81 Oral DAILY Corpo ration (Aspirin) [81 mg]: 1 Tablet Oral DAILY Insurance Providers Payer name Policy type Policy ID Covered Covered alliance party's Policy P jose manuel / Coverage alliance party ID relationship to [facility] type [place] [id number] SP [id number] HEALTHCARE PPO BC PPO [id number] SP [id number] MEDICARE [id number] SP [id number] BC PPO [id number] SP [id number] SP [id number] HEALTHCARE [place] [id number] SP [id number] HEALTHCARE PPO UNK [id number] [place] [id number] SP [id number] HEALTHCARE PPO [place] [id number] SP [id number] HEALTHCARE PPO MEDICARE [id number] SP [id number] A Problems, Conditions, and Diagnoses Code Display Name Description Problem Type Effective Data Sour ce(s) Dates Z95.1 Presence of PRESENCE OF Diagnosis 01/17/2020 [place] aortocoronary AORTOCORONARY 06:00:00 AM [facility] bypass graft BYPASS GRAFT EDT [employer] I73.9 Peripheral vascular PERIPHERAL Diagnosis 01/17/2020 [facility] ordaz disease, VASCULAR DISEASE, 06:00:00 AM [facility] unspecified UNSPECIFIED TrunqShowT [employer] 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 0 [place] aortic valve AORTIC VALVE 06:00:00 AM [facility] alth disorders DISORDERS [employer] Care [employer] I34.8 Other nonrheumatic OTHER NONRHEUMATIC Diagnosis 0 [place] mitral valve MITRAL VALVE 06:00:00 AM [facility] alth disorders DISORDERS [employer] Care [employer] I51.7 Cardiomegaly CARDIOMEGALY Diagnosis 01/17/2020 [facility] r 06:00:00 AM [facility] TrunqShowT [facility] [employer] I65.23 Occlusion and OCCLUSION AND Diagnosis 01/17/2020 [facility] stenosis of STENOSIS OF 06:00:00 AM [facility] bilateral carotid BILATERAL CAROTID EDT Care arteries [employer] Corporation I25.10 Atherosclerotic ATHSCL HEART Diagnosis 01/17/2020 [facility] heart disease of DISEASE OF OHKAY OWINGEH 06:00:00 AM [facility] [place] coronary CORONARY ARTERY EDT Care artery without W/O ANG PCTRS Corpora tion angina pectoris 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 10/01/2019 [facility] use of aspirin (CURRENT) USE OF 07:59:00 PM [facility] [employer] ASPIRIN EST Care [employer] Z90.3 Acquired absence of ACQUIRED ABSENCE Diagnosis 10/01/2019 [place] stomach [part of] OF STOMACH (PART 07:59:00 PM [facility]) EST Care [employer] E78.00 Pure PURE Diagnosis 10/01/2019 [place] hypercholesterolemi HYPERCHOLESTEROLEM 07:59:00 PM [facility] a, unspecified IA, UNSPECIFIED EST Care [employer] E11.9 Type 2 diabetes TYPE 2 DIABETES Diagnosis 10/01/2019 [place] mellitus without MELLITUS WITHOUT 07:59:[facility] complications COMPLICATIONS EST Care [employer] R60.9 Edema, unspecified EDEMA, UNSPECIFIED Diagnosis [address] [place] [address] 07:59:00 PM [facility] EST Care [employer] N17.9 Acute kidney ACUTE KIDNEY Diagnosis 10/01/2019 [facility] r failure, FAILURE, 07:59:00 PM [facility] unspecified UNSPECIFIED EST Care [employer] N18.9 Chronic kidney CHRONIC KIDNEY Diagnosis 10/01/2019 [facility] benny disease, DISEASE, 07:59:00 PM [facility] unspecified UNSPECIFIED EST Care [employer] I12.9 Hypertensive HYPERTENSIVE Diagnosis 10/01/2019 [facility] r chronic kidney CHRONIC KIDNEY 07:59:00 PM Count y Health disease with stage DISEASE W STG EST Car e 1 through stage 4 1-4/[facility] [employer] chronic kidney disease, or unspecified chronic kidney disease E87.70 Fluid overload, FLUID OVERLOAD, Diagnosis 10/01/2019 [place] unspecified UNSPECIFIED 07:59:00 PM [facility] EST Care [employer] Z86.73 Personal history of PRSNL HX OF TIA Diagnosis 09/02/2019 [place] transient ischemic (TIA), AND CEREB 05:30:00 PM [facility] attack (TIA), and INFRC W/O RESID EDT Ca re cerebral infarction DEFICITS Corpo ration without residual deficits Z95.820 Peripheral vascular PERIPHERAL Diagnosis 09/02/2019 [facility] angioplasty status VASCULAR 05:30:00 PM [facility] y Health with implants and ANGIOPLASTY STATUS EDT Care grafts W IMPLANTS AND Corporatio n GRAFTS Z98.84 Bariatric surgery BARIATRIC SURGERY Diagnosis 09/02/2019 [place] status STATUS 05:30:00 PM [facility] EDT Care [employer] N28.9 Disorder of kidney DISORDER OF KIDNEY Diagnosis 9 [place] and ureter, AND URETER, 05:30:00 PM [facility] unspecified UNSPECIFIED EDT Care [employer] R19.7 Diarrhea, DIARRHEA, Diagnosis 09/02/2019 [place] unspecified UNSPECIFIED 05:30:00 PM [facility] EDT Care [employer] Z87.891 Personal history of PERSONAL HISTORY Diagnosis 09/02/2019 [place] nicotine dependence OF NICOTINE 05:30:00 PM [employer] DEPENDENCE EDT Care Corporation R94.39 Abnormal result of ABNORMAL RESULT OF Diagnosis 9 [place] other OTHER 05:30:00 PM [facility] cardiovascular CARDIOVASCULAR EDT Care function study FUNCTION STUDY Corpor atYABUY Z96.41 Presence of insulin PRESENCE OF Diagnosis 09/02/2019 [place] pump (external) INSULIN PUMP 05:30:00 PM [facility] (internal) (EXTERNAL) EDT Care (INTERNAL) Corporation N18.3 Chronic kidney CHRONIC KIDNEY Diagnosis 09/02/2019 [facility] benny disease, stage 3 DISEASE, STAGE 3 05:30:00 PM [employer] (moderate) (MODERATE) EDT Care [employer] E11.22 Type 2 diabetes TYPE 2 DIABETES Diagnosis 09/02/2019 [place] mellitus with MELLITUS W 05:30:00 PM [facility] diabetic chronic DIABETIC CHRONIC EDT Ca re kidney disease KIDNEY DISEASE Corpor ation E11.65 Type 2 diabetes TYPE 2 DIABETES Diagnosis 08/25/2019 [place] mellitus with MELLITUS WITH 10:20:00 AM [facility] hyperglycemia HYPERGLYCEMIA EDT Care [employer] M10.00 Idiopathic gout, IDIOPATHIC GOUT, Diagnosis 08/25/2019 [facility] unspecified site UNSPECIFIED SITE 10:20:00 AM [employer] EDT Care Corporation R80.9 Proteinuria, PROTEINURIA, Diagnosis 08/25/2019 [facility] r unspecified UNSPECIFIED 10:20:00 AM [facility] EDT Care [employer] N42.9 Disorder of DISORDER OF Diagnosis 08/25/2019 [place] prostate, PROSTATE, 10:20:00 AM [facility] unspecified UNSPECIFIED EDT Care [employer] E55.9 Vitamin D VITAMIN D Diagnosis 08/25/2019 [place] deficiency, DEFICIENCY, 10:20:00 AM [facility] unspecified UNSPECIFIED EDT Care [employer] E83.39 Other disorders of OTHER DISORDERS OF Diagnosis 9 [place] phosphorus PHOSPHORUS 10:20:00 AM [facility] metabolism METABOLISM EDT Care [employer] Z01.812 Encounter for ENCOUNTER FOR Diagnosis 08/25/2019 [facility] preprocedural PREPROCEDURAL 10:20:00 AM [facility] laboratory LABORATORY T [facility] examination EXAMINATION Corporation 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 Diagnosis 06/09/2019 [facility] ordaz use of insulin (CURRENT) USE OF 06:39:00 AM [facility] INSULIN EDT Care [employer] 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 Diagnosis 06/09/2019 [facility] ordaz use of (CURRENT) USE OF 06:39:00 AM [facility] anticoagulants ANTICOAGULANTS EDT Care [employer] E78.5 Hyperlipidemia, HYPERLIPIDEMIA, Diagnosis 06/09/2019 [place] unspecified UNSPECIFIED 06:39:00 AM [facility] EDT Care [employer] J98.4 Other disorders of OTHER DISORDERS OF Diagnosis 9 [place] lung LUNG 06:39:00 AM [facility] EDT Care [employer] I45.89 Other specified OTHER SPECIFIED Diagnosis 06/09/2019 [place] conduction CONDUCTION 06:39:00 AM [facility] disorders DISORDERS EDT Care [employer] 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 06/09/2019 [facility] benny flutter FLUTTER 06:39:00 AM [facility] TrunqShowT Care [employer] I48.4 Atypical atrial ATYPICAL ATRIAL Diagnosis 06/09/2019 [place] flutter FLUTTER 06:39:00 AM [facility] EDT Care [employer] R13.10 Dysphagia, DYSPHAGIA, Diagnosis 04/27/2019 [place] unspecified UNSPECIFIED 06:00:00 AM [facility] TrunqShowT [employer] / hellof[employer] K21.9 Gastro-esophageal GASTRO-ESOPHAGEAL Diagnosis 04/27/2019 [place] reflux disease REFLUX DISEASE 06:00:00 AM [facility] [employer] without esophagitis WITHOUT EDT Care ESOPHAGITIS Corporation M79.89 Other specified OTHER SPECIFIED Diagnosis 02/22/2019 [place] soft tissue SOFT TISSUE 06:00:00 AM [facility] disorders DISORDERS EDT Care [employer] Z88.5 Allergy status to ALLERGY STATUS TO Diagnosis 12/18/2018 [place] narcotic agent NARCOTIC AGENT 06:00:00 PM Count y Health status STATUS EST Care [employer] Z88.1 Allergy status to ALLERGY STATUS TO Diagnosis 12/18/2018 [place] other antibiotic OTHER ANTIBIOTIC 06:00:00 PM [facility] agents status AGENTS STATUS EST Care [employer] Z79.84 detention (current) JAIL Diagnosis 12/18/2018 [facility] use of oral (CURRENT) USE OF 06:00:00 PM [facility] hypoglycemic drugs ORAL HYPOGLYCEMIC EST Care DRUGS Corporation E11.40 Type 2 diabetes TYPE 2 DIABETES Diagnosis 12/18/2018 [place] mellitus with MELLITUS WITH 06:00:00 PM [facility] diabetic DIABETIC EST Care neuropathy, NEUROPATHY, UNSP Corpora tion unspecified E11.51 Type 2 diabetes TYPE 2 DIABETES W Diagnosis 12/18/2018 [facility] mellitus with DIABETIC 06:00:00 PM [facility] diabetic peripheral PERIPHERAL EST Care angiopathy without ANGIOPATH W/O Cor poration gangrene GANGRENE I63.233 Cerebral infarction CEREB INFRC DUE TO Diagnosis 12/12/19 [place] due to unspecified UNSP OCCLS OR 02:01:00 PM [facility] occlusion or STENOSIS OF BI EST Care stenosis of CAROTID ART [facility] bilateral carotid arteries Results ID Date Data Source [id number] 06/28/2020 04:00:00 AM EDT [facility] Name Value Range Interpretation Description Data Sup porting Code Source(s) Document(s ) SARS [facility] coronavirus 2 RNA This lab was ordered by [facility] and reported by [facility]. ID Date Data Source [id number] 06/05/2020 10:45:00 AM EDT [facility] Name Value Range Interpretation Description Data Sup porting Code Source(s) Document(s ) SARS [facility] coronavirus 2 RNA This lab was ordered by [facility] and reported by [facility]. ID Date Data Source [id number] 05/17/2020 06:00:00 AM EDT [facility] Name Value Range Interpretation Description Data Sup porting Code Source(s) Document(s ) SARS [facility] coronavirus 2 RNA This lab was ordered by [facility] and reported by [facility]. ID Date Data Source [id number] 05/13/2020 10:00:00 AM EDT [facility] Name Value Range Interpretation Description Data Sup porting Code Source(s) Document(s ) SARS [facility] coronavirus 2 RNA This lab was ordered by [facility] and reported by [facility]. ID Date Data Source [id number] 04/12/2020 11:18:00 PM EDT [facility] Name Value Range Interpretation Description Data Sup porting Code Source(s) Document(s ) SARS [facility] CORONAVIRUS 2 RNA This lab was ordered by [facility] and reported by [facility]. ID Date Data Source [id number] 09/02/2019 06:06:00 AM EDT [facility] [id number] Corporation Name Value Range Interpretation Description Data Sup porting Code Source(s) Document(s ) Leukocytes 6.4 k/mm3 4.8-10 <td> 09/02/2019 [place] [#/volume] in .8 06:06</td><td> [facility] Blood by k/mm3 WBC </td><td> Health Care Automated count Corporation 6.4
(4.8-10.8) k/mm3 </td> Erythrocyte 87.8 fL 80.0-9 <td> 09/02/2019 [place] mean 4.0 fL 06:06</td><td> [facility] corpuscular MCV </td><td> Health Care volume [[employer] volume] by 87.8 Automated count
(80.0-94.0) fL </td> Hemoglobin 10.7 g/dL 14.0-1 <td> 09/02/2019 [place] [Mass/volume] 8.0 06:06</td><td> [facility] in Blood g/dL HGB Health Care </td><td><david Corporation raph styleCode="Bold "> 10.7 L </paragraph>
(14.0-18.0) g/dL </td> Hematocrit 34.4 % 40.8-4 <td> 09/02/2019 [place] [Volume 6.9 % 06:06</td><td> [facility] Fraction] of HCT Health Care Blood by </td><td><david Corporation Automated count raph styleCode="Bold "> 34.4 L </paragraph>
(40.8-46.9) % </td> Erythrocytes 3.92 m/mm3 4.70-6 <td> 09/02/2019 [facility] r [#/volume] in .10 06:06</td><td> County Blood m/mm3 RBC Health Care </td><td><[employer] raph styleCode="Bold "> 3.92 L </paragraph>
(4.70-6.10) m/mm3 </td> Platelets 257 k/mm3 160-41 <td> 09/02/2019 [place] [#/volume] in 0 06:06</td><td> [facility] Blood by k/mm3 Platelet Count Health Care Automated count </td><td> [employer] 257
(160-410) k/mm3 </td> Erythrocyte 15.7 % 11.5-1 <td> 09/02/2019 [place] distribution 4.5 % 06:06</td><td> County width [Entitic RDW Health Care volume] by </td><td><[employer] Automated count raph styleCode="Bold "> 15.7 H </paragraph>
(11.5-14.5) % </td> Platelet mean 11.1 fL 9.8-12 <td> 09/02/2019 [facility] r volume [Entitic .8 fL 06:06</td><td> County volume] in MPV </td><td> Health Care Blood by [employer] Automated count 11.1
(9.8-12.8) fL </td> Erythrocyte 27.3 pg 27.0-3 <td> 09/02/2019 [place] mean 1.5 pg 06:06</td><td> County corpuscular MCH </td><td> Health Care hemoglobin Corporation [[employer] mass] 27.3 by Automated count
(27.0-31.5) pg </td> Erythrocyte 31.1 % 32.0-3 <td> 09/02/2019 [place] mean 6.0 % 06:06</td><td> County corpuscular [facility] Health Care hemoglobin </td><td><[employer] concentration raph [Mass/volume] styleCode="Bold in Blood from "> Fetus by 31.1 Automated count L </paragraph>
(32.0-36.0) % </td> Glucose 131 mg/dL 70-105 <td> 09/02/2019 [place] [Mass/volume] mg/dL 06:06</td><td> County in Blood Glucose-Serum Health Care </td><td><[employer] raph styleCode="Bold "> 131 H </paragraph>
(70-105) mg/dL </td> Sodium 141 mEq/L 135-14 <td> 09/02/2019 [place] [Moles/volume] 5 06:06</td><td> County in Serum or mEq/L Sodium-Serum Health Care Plasma </td><td> [employer] 141
(135-145) mEq/L </td> Potassium 4.3 mEq/L 3.5-5. <td> 09/02/2019 [place] [Moles/volume] 1 06:06</td><td> County in Serum or mEq/L Potassium-Serum Health Care Plasma </td><td> [employer] 4.3
(3.5-5.1) mEq/L </td> Creatinine 2.74 mg/dL 0.72-1 <td> 09/02/2019 [place] [Moles/volume] .25 06:06</td><td> County in Serum or mg/dL Creatinine. Health Care Plasma </td><td><[employer] raph styleCode="Bold "> 2.74 H </paragraph>
(0.72-1.25) mg/dL </td> Chloride 109 mEq/L 98-107 <td> 09/02/2019 [place] [Moles/volume] mEq/L 06:06</td><td> County in Serum or Chloride Health Care Plasma </td><td><[employer] raph styleCode="Bold "> 109 H </paragraph>
(98-107) mEq/L </td> Urea nitrogen 21 mg/dL 6-22 <td> 09/02/2019 [facility] r [Mass/volume] mg/dL 06:06</td><td> County in Blood BUN </td><td> Health Care Corporation 21
(6-22) mg/dL </td> Carbon dioxide, 26 mEq/L 22-30 <td> 09/02/2019 [facility] total mEq/L 06:06</td><td> County [Moles/volume] CO2 </td><td> Health Car e in Serum or Corporation Plasma 26
(22-30) mEq/L </td> Aspartate 12 U/L 4-35 <td> 08/31/2019 [place] aminotransferas U/L 18:00</td><td> County e [Enzymatic AST (SGOT) Health Care activity/volume </td><td> Corporation ] in Serum or Plasma 12
(4-35) U/L </td> Alanine 7 U/L 6-55 <td> 08/31/2019 [place] aminotransferas U/L 18:00</td><td> County e [Enzymatic ALT (SGPT) Health Care activity/volume </td><td> [employer] ] in Serum or Plasma 7
(6-55) U/L </td> Albumin 3.2 g/dL 3.4-4. <td> 08/31/2019 [place] [Mass/volume] 8 g/dL 18:00</td><td> County in Serum or Albumin Health Care Plasma </td><td><[employer] raph styleCode="Bold "> 3.2 L </paragraph>
(3.4-4.8) g/dL </td> Calcium 8.3 mg/dL 8.6-10 <td> 09/02/2019 [place] [Mass/volume] .2 06:06</td><td> [place] in Blood mg/dL Calcium Health Care </td><td><[employer] raph styleCode="Bold "> 8.3 L </paragraph>
(8.6-10.2) mg/dL </td> Bilirubin.total 0.3 mg/dL 0.2-1. <td> 08/31/2019 [facility] [Mass/volume] 3 18:00</td><td> [facility] in Blood mg/dL Bilirubin - [facility] </td><td> 0.3
(0.2-1.3) mg/dL </td> Proteins - 6.3 g/dL 6.4-8. <td> 08/31/2019 [place] Total 3 g/dL 18:00</td><td> [facility] Proteins - [facility] [employer] [facility] </td><td><david raph styleCode="Bold "> 6.3 L </paragraph>
(6.4-8.3) g/dL </td> Hemolysis index No <td> 09/02/2019 [facility] of Serum or Hemolysis 06:06</td><td> [facility] Plasma Hemolysis Index [facility] </td><td> [employer] No Hemolysis
</td> Lipemic index No Lipemia <td> 09/02/2019 [facility] er of Serum or 06:06</td><td> [facility] Plasma Lipemia Index [facility] </td><td> [employer] No Lipemia
</td> Globulin 3.1 gm/dL 2.9-4. <td> 08/31/2019 [place] [Mass/volume] 0 18:00</td><td> [facility] in Serum gm/dL Globulin [facility] </td><td> [employer] 3.1
(2.9-4.0) gm/dL </td> Anion gap in 6 mEq/L 7-13 <td> 09/02/2019 [place] Serum or Plasma mEq/L 06:06</td><td> [facility] Anion Gap [facility] </td><td><david [employer] raph styleCode="Bold "> 6 L </paragraph>
(7-13) mEq/L </td> aPTT panel - 27.9 secs 25.0-3 <td> 09/02/2019 [place] Platelet poor 2.0 06:06</td><td> [facility] plasma secs Partial Health Care Thromboplastin Corporation Time </td><td> 27.9
(25.0-32.0) secs </td> Specific 1.010 {} 1.000- <td> 09/01/2019 [place] gravity of 1.035 04:45</td><td> [facility] Urine by Test Specific Health Care strip [employer] </td><td> 1.010
(1.000-1.035) </td> Prothrombin 10.2 secs 9.8-12 <td> 09/02/2019 [place] time (PT) .0 06:06</td><td> [facility] secs Prothrombin Health Care Time. Corporation </td><td> 10.2
(9.8-12.0) secs </td> Appearance of Clear <td> 09/01/2019 [facility] r Urine 04:45</td><td> [facility] Appearance Health Care </td><td> Corporation Clear
(CLEAR) </td> Icteric index Non <td> 09/02/2019 [facility] r of Serum or Icteric 06:06</td><td> [facility] Plasma Icteric Index Health Care </td><td> [employer] Non Icteric
</td> Leukocyte Negative <td> 09/01/2019 [place] esterase 04:45</td><td> [facility] [Presence] in Leukocytes Health Care Urine by Test Esterase Corporation strip </td><td> Negative
(NEGATIVE) </td> Urobilinogen 0.2 mg/dL 0.0-2. <td> 09/01/2019 [place] [Presence] in 0 04:45</td><td> [facility] Urine by mg/dL Urobilinogen Health Care Automated test </td><td> Corporation strip 0.2
(0.0-2.0) mg/dL </td> Nitrite Negative <td> 09/01/2019 [place] [Presence] in 04:45</td><td> [facility] Urine by Test Nitrites Health Care strip </td><td> Corporation Negative
(NEGATIVE) </td> Glucose 1+ (50 <td> 09/01/2019 [place] [Presence] in MG/DL) 04:45</td><td> [facility] Urine by Test Glucose_ Health Care strip </td><td><david Corporation raph styleCode="Bold "> 1+ (50 MG/DL) * AB </paragraph>
(NEGATIVE) </td> Protein 3+ (>=500 <td> 09/01/2019 [place] [Presence] in MG/DL 04:45</td><td> [facility] Urine by Protein Health Care Automated test [employer]itative Corporation strip </td><td><david raph styleCode="Bold "> 3+ (>=500 MG/DL * AB </paragraph>
(NEGATIVE) </td> Leukocytes <1 <td> 09/01/2019 [place] [Presence] in 04:45</td><td> [facility] Urine by WBC </td><td> Health Care Automated Corporation <1
(0-5) /HPF </td> Bacteria NONE SEEN <td> 09/01/2019 [place] [#/area] in <= FEW 04:45</td><td> [facility] Urine sediment Epithelial Health Care by Microscopy Cells Corporation high power </td><td> field NONE SEEN
<= FEW

/LPF </td> Bacteria NONE SEEN <td> 09/01/2019 [place] [#/area] in 04:45</td><td> [facility] Urine sediment Bacteria Health Care by Microscopy </td><td> Corporation high power field NONE SEEN
(NONE) /HPF </td> Erythrocytes 2 /HPF 0-2 <td> 09/01/2019 [place] [#/area] in /HPF 04:45</td><td> [facility] Urine sediment RBC </td><td> Health Car e by Automated Corporation count 2
(0-2) /HPF </td> Magnesium 2.2 mg/dL 1.6-2. <td> 09/02/2019 [place] [Mass/volume] 6 06:06</td><td> [facility] in Serum or mg/dL Magnesium Level Health Care Plasma </td><td> [employer] 2.2
(1.6-2.6) mg/dL </td> Glucose 158 mg/dL 70-105 <td> 09/02/2019 [place] [Mass/volume] mg/dL 12:12</td><td> County in Capillary Glucose - Health Care blood by Finger Stick [employer] Glucometer </td><td><david raph styleCode="Bold "> 158 H </paragraph>
(70-105) mg/dL </td> ID Date Data Source [id number] 09/01/2019 10:31:00 AM EDT [facility] [id number] Corporation Name Value Range Interpretation Description Data Sup porting Code Source(s) Document(s ) Echo 2D [id number] <td> 09/01/2019 [place] M-Mode [id number] 10:31</td><td> [facility] [id number] Echo 2D M-Mode Health Care (TTE) [facility] (TTE) [employer] Non-Invasive </td><td> Cardiology [id number] Laboratory
Advanced [id number] Physician
Services, [id number] [facility] [id number] Phone

([phone] Non-Invasive [phone] Cardiology Adult
Echocardiogram Laboratory Report Name:
Charanjit RODRIGUEZ V
Physician Study Date:
09/01/2019 Services, 10:[address] BP: 186/83
mmHg : TRES [place] 1950
[id number] Gender:
Male Age: 69 Phone [phone]
[phone] Fax Height: 71 in
Account (104) Number: [id number]
Adult Weight: 225 lb Echocardiogram BSA: 2.2 m2 Report Patient
Location: [facility] Name: MICHAEL, Reason For KATHERINE Frias Study: CHEST PAIN, Study Date: UNSPECIFIED 09/01/2019 Ordering 10:31 AM Physician:
SHREE YOSI Referring Physician: BP: FAYE, 186/83 mmHg CLIF
Performed By: : CAMACHO Villanueva 1950 [place] Interpretation Gender: Summary The Male left ventricle
Age: is normal in 69 yrs size. Moderate left Height: 71 ventricular in hypertrophy.
Left Account Number: ventricular [id number] ejection fraction is Weight: 225 lb 60%. The left
ventricular BSA: 2.2 m2 wall motion is normal. The
right Patient ventricular Location: 5NW systolic
function is Reason For normal. Study: CHEST Indexed left PAIN, atrial volume UNSPECIFIED is normal. The atrial

septum is Ordering aneurysmal. Physician: There is no GLORIA SWANNEctor atrial septal
defect or Referring patent foramen Physician: ovale by color FAYE, Doppler. CLIF There is no
aortic Performed By: stenosis. CAMACHO Villanueva Trivial mitral [place] valve

regurgitation. Trivial Interpretation tricuspid valve Summary regurgitation.
The aortic The left root is normal ventricle is in size. normal in size. There was insufficient
tricuspid Moderate left regurgitation ventricular detected to hypertrophy. calculate
pulmonary Left artery systolic ventricular pressure. The ejection inferior vena fraction is cava is normal 60%. in size and
The collapses left normally with ventricular respiration, wall motion is suggestive of normal. normal right
atrial pressure The right (3 mmHg). ventricular There is no systolic pericardial function is effusion. normal. ICD-10 Chest
pain, unspec - Indexed left R07.9. atrial volume Procedure A is normal. complete
two-dimensional The atrial transthoracic septum is echocardiogram aneurysmal. was performed
(2D, M-mode, There is no spectral and atrial septal color flow defect or Doppler). patent foramen (00887). Study ovale by color quality is Doppler. good. A
Definity There is no contrast aortic injection was stenosis. performed to
opacify the Trivial mitral left ventricle. valve Left regurgitation. Ventricle The
left ventricle Trivial is normal in tricuspid valve size. Moderate regurgitation. left
ventricular The aortic hypertrophy. root is normal The left in size. ventricular
ejection There was fraction is insufficient normal. Left tricuspid ventricular regurgitation ejection detected to fraction is calculate 60%. The left
ventricular pulmonary wall motion is artery systolic normal. pressure. Right Ventricle
The right The inferior ventricle is vena cava is normal in size. normal in size The right and collapses ventricular normally with systolic
function is respiration, normal. suggestive of Left Atrium normal right Indexed left atrial pressure atrial volume (3 mmHg). is normal.
Right Atrium There is no The right pericardial atrium is effusion. dilated.

Atrial Septum ICD-10 The atrial
septum is Chest pain, aneurysmal. unspec - R07.9. There is no atrial septal

defect or Procedure patent
foramen ovale A complete by color two-dimensional Doppler. transthoracic Aortic Valve echocardiogram The aortic was performed valve is (2D, trileaflet.
There is mild M-mode, aortic valve spectral and calcification. color flow There is no Doppler). aortic (85183). Study stenosis. No quality is aortic good. A regurgitation.
Mitral Definity Valve Mild contrast mitral annular injection was calcification. performed to There is no opacify the mitral valve left ventricle. stenosis. Trivial mitral

valve Left Ventricle regurgitation.
The left Tricuspid Valve ventricle is Structurally normal in size. normal Moderate left tricuspid ventricular valve. There is
no tricuspid hypertrophy. stenosis. The left Trivial ventricular tricuspid valve ejection regurgitation. fraction is Aorta The normal. Left aortic root is
normal in size. ventricular The visualized ejection area of fraction is ascending aorta 60%. The left is normal in ventricular size. The wall motion is visualized area
of aortic arch normal. is normal in size.

Pulmonary Right Ventricle Artery There was
The insufficient right ventricle tricuspid is normal in regurgitation size. The right detected to ventricular calculate systolic pulmonary
artery systolic function is pressure. normal. Venous The inferior vena

cava is normal Left Atrium in size and collapses
normally with Indexed left respiration, atrial volume suggestive of is normal. normal right atrial pressure

(3 mmHg). Right Atrium Pericardium
There is no The right pericardial atrium is effusion. dilated. MMode/2D

Measurements & Atrial Calculations Septum IVSd: 1.5 cm
The LVIDd: 4.4 atrial septum cm is aneurysmal. LV mass(C)d: There is no 244.3 grams atrial septal LVIDs: 3.0 cm defect or LV patent mass(C)dI:
LVPWd: 1.3 cm foramen ovale 110.2 by color grams/m2 Doppler.

Aortic Valve
The _ Ao root aortic valve is diam: 3.3 cm trileaflet. Asc Aorta diam: There is mild 3.4 cm LVOT aortic valve diam: 2.1 cm calcification. LA dimension:
4.3 cm Ao arch There is no diam: 2.7 cm aortic stenosis. No aortic regurgitation. _ Left

atrial volume Mitral Valve Left atrial
volume index Mild mitral Left atrial annular volume index calcification. (2c): 54.9 ml There is no (2c): 24.8 mitral valve ml/m2 stenosis. (4c): 28.4
ml/m2 Left Trivial mitral atrial volume valve (4c): 63.0 ml regurgitation. Doppler Measurements &

Calculations Tricuspid MV E max latonia: Valve 89.7 cm/sec MV
dec time: 0.29 Structurally sec Lat E' normal latonia: MV A max tricuspid [place]: 130.0 valve. There is cm/sec no tricuspid stenosis. 12.2 cm/sec
Trivial tricuspid valve regurgitation. _ Med E'

latonia: 7.5 cm/sec Aorta E/E'
The Lateral: 7.4 aortic root is AV v max: normal in size. E/E' Medial: The visualized 11.9 area of 161.9 cm/sec ascending aorta AV max P.5 mmHg
is normal in size. The visualized area of aortic arch is normal _ LVOT max in size. P.3 mmHg

Stroke Pulmonary volume: 102.0 Artery ml PA max
P.7 mmHg There was LVOT v max: insufficient 125.6 cm/sec tricuspid Stroke volume regurgitation index: LVOT detected to VTI: 28.2 cm calculate 46.0
ml/m2 pulmonary artery systolic pressure.

Venous _ Right
atrial The inferior pressure: vena cava is RV S latonia: 13.1 normal in size cm/sec and collapses E/E' Average: normally with 9.7 3.0 mmHg
respiration, suggestive of normal right atrial pressure (3 mmHg).

_ Pericardium Reading Physician:
There Krystyna Prabhakar MD is no 09/01/2019 pericardial 01:05 PM effusion.

MMode/2D Measurements & Calculations
IVSd: 1.5 cm LVIDd: 4.4 cm LV mass(C)d: 244.3 grams
LVIDs: 3.0 cm LV mass(C)dI:
LVPWd: 1.3 cm 110.2 grams/m2
_

Ao root diam: 3.3 cm Asc Aorta diam: 3.4 cm LVOT diam: 2.1 cm
LA dimension: 4.3 cm Ao arch diam: 2.7 cm
_

Left atrial volume Left atrial volume index Left atrial volume index
(2c): 54.9 ml (2c): 24.8 ml/m2 (4c): 28.4 ml/m2
Left atrial volume
(4c): 63.0 ml

Doppler Measurements & Calculations
MV E max latonia: 89.7 cm/sec MV dec time: 0.29 sec Lat E' latonia:
MV A max latonia: 130.0 cm/sec 12.2 cm/sec
_

Med E' latonia: 7.5 cm/sec E/E' Lateral: 7.4 AV v max:
E/E' Medial: 11.9 161.9 cm/sec
AV max P.5 mmHg
_

LVOT max P.3 mmHg Stroke volume: 102.0 ml PA max P.7 mmHg
LVOT v max: 125.6 cm/sec Stroke volume index:
LVOT VTI: 28.2 cm 46.0 ml/m2
__

Right atrial pressure: RV S latonia: 13.1 cm/sec E/E' Average: 9.7
3.0 mmHg

_

Reading Physician:
Krystyna Prabhakar MD 09/01/2019 01:05 PM

</td> ID Date Data Source [id number] 08/31/2019 05:30:00 PM EDT [facility] [id number] Corporation Name Value Range Interpretation Description Data Sup porting Code Source(s) Document(s ) Renal/Blad (PACSIMAGE <td> 09/02/2019 [facility] 06:32</td><td> [facility] ) Final Renal/Bladder Health Care Result [employer] Name: MICHAEL, </td><td>dennis philip styleCode="Ital Sex: M : ics">(PACSIMAGE 1950 Location: M Admitting )</paragraph><b Physician: r/>
CLIF Final Result FAYE Requesting

Physician: Name: BARBARA RODRIGUEZ SLIM KATHERINE Frias Exam: US
BLADDER/RENAL 09/02/2019 Sex: M 09:00
CLINICAL : 1950 STATEMENT: Location: M Acute kidney
injury Admitting TECHNIQUE: Physician: Sonogram of the CLIF kidneys and FAYE urinary bladder
was performed. Requesting Physician: COMPARISON: CT BARBARA SMALLS abdomen/pelvis 05/14/2017

FINDINGS: Exam: US KIDNEYS: The BLADDER/RENAL right kidney 09/02/2019 measures 13.8 09:00 cm in length.

<br/ No right-sided > CLINICAL hydronephrosis STATEMENT: or shadowing Acute kidney calculus. injury The left kidney

measures 13.9 TECHNIQUE: cm in length. Sonogram of the No left-sided kidneys and hydronephrosis urinary bladder or shadowing was performed. calculus. There is a left lower

pole renal cyst COMPARISON: measuring [address] 2.5 x 1.6 cm. abdomen/pelvis URINARY 05/14/2017 BLADDER: The

prevoid urinary FINDINGS: bladder volume is 193 mL.

Penile implant KIDNEYS: reservoir seen
adjacent to the The right urinary kidney measures bladder.. 13.8 cm in IMPRESSION: length. No No right-sided hydronephrosis. hydronephrosis
Resident or Radiologist: vasiliy Poole MD calculus. Resident

Radiologist The left Attending kidney measures Radiologist: 13.9 cm in Christine Raibanner length. No Finalizing left-sided Radiologist: hydronephrosis Christine Valverde
Transcribed or Date: shadowing 09/02/2019 calculus. There 09:49 is a left lower Finalized Date: pole renal cyst 09/02/2019 10:16
measuring 2 x 2.5 x 1.6 cm.

URINARY BLADDER:
The prevoid urinary bladder volume is 193 mL.
Penile implant reservoir seen adjacent to the urinary bladder..

IMPRESSION:

No hydronephrosis.

Resident Radiologist: Andrew Poole MD Resident Radiologist
Attending Radiologist: Christine Valverde
Finalizing Radiologist: Christine Valverde
Transcribed Date: 09/02/2019 09:49
Finalized Date: 09/02/2019 10:16

</td > Chest (PACSIMAGE <td> 08/31/2019 [facility] Portable 17:30</td><td> [facility] ) Final Chest Portable Health Care Result </td><td>[employer] Name: cedrick RODRIGUEZ V styleCode="Ital ics">(PACSIMAGE Sex: M : 1950 Location: M )</paragraph><b Admitting r/>
Physician: Final Result CLIF MCKINNEY

Requesting Name: MICHAEL Physician: KATHERINE SWANN
Exam: CHEST PORTABLE Sex: M 08/31/2019
18:36 : 1950 Portable chest Location: M August 31,
2018 Admitting CLINICAL Physician: HISTORY: CLIF MCKINNEY Correlation is
made with the Requesting previous Physician: radiograph YOSI SWANN performed on April 10, 2017.

The lung apices Exam: CHEST are partially PORTABLE cut from the 08/31/2019 film and not 18:36 evaluated.

<br/ There are some > Portable mild elevation chest August of the 2018 hemidiaphragm

again noted. CLINICAL The heart and HISTORY: mediastinum are Congestion distorted on this portable

AP projection Correlation is which is also a made with the poor previous inspiration radiograph film limiting performed on evaluation.
Post median April 10, 2017. sternotomy with The lung apices one of the are partially lower sternal cut from the sutures noted film to be broken.
and There is a loop not evaluated. recorder There are some projecting over mild elevation the left heart of the right border. In the
visualized hemidiaphragm lung [place] again noted. there is some The heart and foci of mediastinum are atelectasis distorted noted at the
right base. on this IMPRESSION: portable AP Post median projection sternotomy. which is also a Lung apices cut poor from film and inspiration not evaluated.
Foci of film limiting atelectasis at evaluation. the right base Post median with some sternotomy with elevation of one of the right
the hemidiaphragm. lower sternal A follow-up sutures noted radiograph to to be broken. include the There is a loop lung apices may be obtained for
further recorder evaluation.. projecting over the left heart Resident border. In the Radiologist: visualized Attending
Radiologist: lung [place] Donte Kimball MD there is some Finalizing foci of Radiologist: atelectasis Donte Kimball MD noted at the Transcribed right Date:
09/01/2019 base. 06:00

Finalized Date: IMPRESSION: 09/01/2019 Post median 06:02 sternotomy. Lung apices cut from film
and not evaluated. Foci of atelectasis at the right base with
some elevation of the right hemidiaphragm. A follow-up radiograph
to include the lung apices may be obtained for further evaluation..

Resident Radiologist:
Attending Radiologist: Donte Kimball MD
Finalizing Radiologist: Donte Kimball MD
Transcribed Date: 09/01/2019 06:00
Finalized Date: 09/01/2019 06:02

</td > ID Date Data Source [id number] 12/18/2018 06:54:39 PM EST [facility] [id number] Corporation Name Value Range Interpretation Description Data Source(s ) Supporting Code Document(s ) Specimen 12/19/19 <td> [facility] expiration 19 23:59 12/16/2018 [facility] date of Blood 11:01</td><td> Care Specimen [employer] Expiration Date </td><td> 12/19/2018 23:59
</td> Antibody NEG <td> [facility] 12/16/2018 [facility] 11:01</td><td> Care [employer] Screen </td><td> NEG
</td> ABO-Rh Type A POS <td> [facility] 12/16/2018 [facility] 11:01</td><td> Care ABO-Rh Type Corporation </td><td> A POS
</td> ABO-Rh Type A POS <td> [facility] 12/16/2018 [facility] 11:01</td><td> Care ABO-Rh [employer] </td><td> A POS
</td> Specimen 12/19/19 <td> [facility] expiration 19 23:59 12/16/2018 [facility] date of Blood 11:01</td><td> Care [employer] Expiration Date </td><td> 12/19/2018 23:59
</td> Antibody NEG <td> [facility] Screen 12/16/2018 [facility] 11:01</td><td> Care [employer] Screen </td><td> NEG
</td> ID Date Data Source [id number] 12/18/2018 06:54:39 PM EST [facility] [id number] Corporation Name Value Range Interpretation Description Data Sup porting Code Source(s) Document(s ) Echo 2D [id number] <td> 12/15/2018 [facility]-Mode [facility] 07:42</td><td> [facility] Complete [id number] Echo 2D M-Mode Health Care (TTE) [id number] Complete (TTE) [employer] Non-Invasive </td><td> Cardiology [id number] Laboratory
[facility] Advanced
Physician [id number] [facility]
[address] [place] [phone]

[place], [place] Non-Invasive [address]
Phone [phone]) Cardiology [phone] Fax
[phone]) Laboratory [phone]
Adult Advanced Echocardiogra
m Report Physician Name:
Tyrone RODRIGUEZ PC MICHAEL V
[address] [facility] Study Date:
12/15/2018 [place], [place] 07:42 AM
[id number]
Phone [phone] BP: 138/76
[phone] mmHg : Fax 1950

Adult Gender: Male Echocardiogram Age: 68 yrs Report
Name: KATHERINE RODRIGUEZ V Height: 71 in Account Study Date: Number: 12/15/2018 07:42 [id number] AM
MRN: Weight: [id number] lb BSA: 2.2 m2 Patient BP: 138/76 mmHg Location: 3SW
Reason For : 1950 Study: ATRIAL FIBRILLATION Gender: Male Ordering
Physician: Age: 68 yrs JOSSUE MORRIS, Height: 71 in Performed By:
Mono, Account Number: KAZ Salgado [id number] Weight: 225 Interpretatio lb n Summary
BSA: 2.2 The left m2 ventricle is
Patient normal in Location: 3SW size. Mild
left Reason For Study: ventricular ATRIAL hypertrophy. FIBRILLATION Left

ventricular Ordering ejection Physician: fraction is JOSSUE MORRIS, 65%. The
left Performed By: ventricular Villareal, Naomi, wall motion RDCS is normal.

The right Interpretation ventricular Summary systolic
The left function is ventricle is normal. normal in size. Indexed left
atrial volume Mild left is normal. ventricular The atrial hypertrophy. septum is
aneurysmal. Left ventricular There is no ejection fraction atrial septal is 65%. defect or
The left patent ventricular wall foramen ovale motion is normal. by color
Doppler. The right There is no ventricular aortic systolic function stenosis. is normal. Trivial
mitral valve Indexed left regurgitation atrial volume is . Trivial normal. tricuspid
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 . The
aortic root There is no atrial is normal in septal defect or size. The patent foramen inferior vena ovale by color cava is Doppler. normal in
There size and is no aortic collapses stenosis. normally with
Trivial mitral respiration, valve suggestive of regurgitation. normal right
atrial Trivial tricuspid pressure (3 valve mmHg). regurgitation. There is a
small The aortic root is pericardial normal in size. effusion.
ICD-10 The inferior vena Atrial cava is normal in fibrillation size and collapses - I48.91. normally with Procedure
A complete respiration, two-dimension suggestive of al normal right transthoracic atrial pressure (3 echocardiogra mmHg). m was
There is performed a small (2D, pericardial M-mode, effusion. spectral and

color flow ICD-10 Doppler).
Atrial (70077). fibrillation - Study quality I48.91. is good. A

Definity Procedure contrast
A injection was complete performed to two-dimensional opacify the transthoracic left echocardiogram was ventricle. performed (2D, Left
Ventricle M-mode, spectral The left and color flow ventricle is Doppler). (88602). normal in Study quality is size. Mild good. A left
Definity ventricular contrast injection hypertrophy. was performed to The left opacify the left ventricular ventricle. ejection

fraction is Left Ventricle normal. Left
ventricular The left ventricle ejection is normal in size. fraction is Mild left 65%. The left ventricular ventricular hypertrophy. wall motion
The is normal. left ventricular Grade I ejection fraction diastolic is normal. Left dysfunction, ventricular consistent ejection with abnormal
LV fraction is 65%. relaxation. The left Right ventricular wall Ventricle motion is normal. The right Grade I ventricle is
normal in diastolic size. The dysfunction, right consistent with ventricular abnormal LV systolic relaxation. function is normal.

Left Atrium Right Ventricle Indexed left
atrial volume The right is normal. ventricle is Right normal in size. Atrium The right Normal right ventricular atrial size. systolic Atrial
Septum The function is atrial septum normal. is

aneurysmal. Left Atrium There is no
atrial septal Indexed left defect or atrial volume is patent normal. foramen ovale

by color Right Atrium Doppler.
Aortic Valve Normal right The aortic atrial size. valve is

trileaflet. Atrial Septum Focal
calcification The atrial septum . There is no is aneurysmal. aortic There is no atrial stenosis. No septal defect or aortic patent regurgitation
foramen . Mitral ovale by color Valve Mild Doppler. mitral

annular Aortic Valve calcification
The . There is no aortic valve is mitral valve trileaflet. Focal stenosis. calcification. Trivial There is no aortic mitral valve
regurgitation stenosis. No . aortic Tricuspid regurgitation. Valve

Structurally Mitral Valve normal
tricuspid Mild mitral valve. There annular is no calcification. tricuspid There is no mitral stenosis. valve stenosis. Trivial
tricuspid Trivial mitral valve valve regurgitation regurgitation. . Pulmonic

Valve Tricuspid Valve Structurally
normal Structurally pulmonic normal tricuspid valve. There valve. There is no is no tricuspid pulmonic stenosis. valve
stenosis. Trivial tricuspid Mild pulmonic valve valve regurgitation. regurgitation

. Aorta Pulmonic Valve The aortic
root is Structurally normal in normal pulmonic size. The valve. There is no visualized pulmonic valve area of stenosis. ascending
Mild aorta is pulmonic valve normal in regurgitation. size. The

visualized Aorta area of
The aortic arch aortic root is is normal in normal in size. size. The visualized Pulmonary area of ascending Artery aorta There was
is insufficient normal in size. tricuspid The visualized regurgitation area of aortic detected to arch is normal in calculate size. pulmonary

artery Pulmonary Artery systolic
pressure. There was Venous The insufficient inferior vena tricuspid cava is regurgitation normal in detected to size and calculate collapses
normally with pulmonary artery systolic pressure. respiration, suggestive of

normal right Venous atrial
The pressure (3 inferior vena cava mmHg). is normal in size Pericardium and collapses There is a normally with small
pericardial respiration, effusion. suggestive of MMode/2D normal right Measurements atrial pressure (3 & mmHg). Calculations

IVSd: 1.4 cm Pericardium
LVIDd: 4.4 There is a small cm pericardial Ao root effusion. diam:

LVIDs: 3.1 cm MMode/2D Measurements & 3.1 cm Calculations LVPWd: 1.4 cm
IVSd: 1.4 cm LA LVIDd: dimension: 4.4 cm 4.2 cm Ao root diam:
LVIDs: 3.1 cm 3.1 cm
LVPWd: 1.4 cm Asc Aorta LA diam: 3.2 cm dimension: Left
4.2 atrial volume cm (2c):
TAPSE: 1.5 cm Ao arch diam: 2.8 cm 38.5 ml Left

Asc atrial volume Aorta diam: 3.2 cm (4c): 40.0 Left atrial ml volume (2c): TAPSE: 1.5 cm
Ao arch diam: 2.8 cm 38.5 ml
Left atrial Left atrial volume volume index (4c): Left
40.0 ml atrial volume
index (2c): 17.4 ml/m2 (4c): 18.0 ml/m2

Doppler Left atrial volume Measurements index Left & atrial volume Calculations index MV E max
(2c): latonia: 67.4 17.4 ml/m2 cm/secMV dec (4c): 18.0 time: 0.28 ml/m2 sec Lat

E' latonia: MV Doppler A max latonia: Measurements & 86.3 cm/sec Calculations
MV E max latonia: 67.4 8.1 cm/sec cm/secMV dec time: MV E/A: 0.78 0.28 sec Lat E' latonia:
MV A max latonia: 86.3 cm/sec 8.1 cm/sec
Med E' latonia: MV E/A: 0.78 6.1 cm/sec

E/E' Lateral: 8.4 AV v max: E/E' Medial: 11.1
Med E' 136.8 cm/sec latonia: 6.1 cm/sec AV max PG: E/E' Lateral: 8.4 7.5 mmHg AV AV v max: v mean:
86.2 cm/sec E/E' Medial: AV mean P.1 3.6 mmHg AV 136.8 cm/sec VTI: 26.6 cm
AV max P.5 mmHg
AV v mean:
86.2 cm/sec LVOT max
AV mean P.3 mmHg P.6 mmHg PA v max:
AV 112.7 cm/sec VTI: 26.6 cm PI end-d
latonia: LVOT mean P.7 mmHg PA max P.1 mmHg 130.3

cm/sec LVOT LVOT max P.3 v max: 115.4 mmHg PA v max: cm/sec LVOT 112.7 cm/sec v mean: 73.6 PI end-d latonia: cm/sec LVOT
VTI: 24.1 cm LVOT mean P.7 mmHg PA max PG: 5.1 mmHg 130.3 cm/sec
LVOT v max: 115.4 Right cm/sec atrial
LVOT v pressure: mean: 73.6 cm/sec Pulm venous
sys latonia: LVOT VTI: 24.1 cm RV A' latonia:
9.8 cm/sec 3.0 mmHg 57.8 cm/sec RV E' latonia:

4.4 cm/sec Right atrial Pulm venous pressure: Pulm turner latonia: venous sys latonia: RV S latonia: RV A' latonia: 9.8 7.1 cm/sec cm/sec 42.2 cm/sec
3.0 mmHg Pulm A venous revs latonia: 57.8 cm/sec 21.6 cm/sec RV E' Pulm venous A latonia: 4.4 cm/sec Revs Dur:
0.11 sec Pulm venous turner Pulm S/D: 1.4 latonia: RV S latonia: 7.1 cm/sec
42.2 cm/sec
Pulm A venous revs latonia:
E/E' 21.6 cm/sec Average: 9.7
Pulm venous A Revs Dur:
0.11 sec
Pulm S/D: 1.4
Reading Physician: Krystyna Prabhakar,

12/15/2018 E/E' Average: 9.7 09:38 AM

____

Reading Physician:
Krystyna Prabhakar MD 12/15/2018 09:38 AM

</td> Nuclear [id number] <td> 12/14/2018 [facility] Stress [facility] 12:05</td><td> [place] Test,Walk [id number] Nuclear Stress Health [facility] [id number] Test,[employer] Non-Invasive </td><td> Cardiology [id number] Laboratory
[facility] Advanced
Physician [id number] [facility],
[address] [place] [phone]

[place] [address]
Phone [phone] Cardiology [phone] Fax
[phone] Laboratory [phone]
Myocardial Advanced Perfusion
Imaging Physician Regadenoson
(Lexiscan) Services, Name:
100 MICHAEL Ngo Curtis MURPHY V
[place] Study Date:
12/14/2018 [address] 12:05 PM
Phone [phone]
[phone] Fax BP: 140/82
(914) mmHg : [phone]

Myocardial Perfusion Imaging Gender: Male
Age: 68 yrs Regadenoson (Lexiscan)
Name: Height: 71 KATHERINE RODRIGUEZ V in Account Number: Study Date: [id number] 12/14/2018 12:05 PM Weight: 220
MRN: lb HR: [id number] BP: 140/82 mmHg BSA: 2.2
m2 Patient : 1950 Location: 3SW Reason For Gender: Male Study: Pre-Op
CV Exam - Age: 68 yrs Z01.810. History: Height: 71 in Bariatric
surgery, Lap Account Number: gastric [id number] sleeve Weight: 220 Medications: lb Humalog
HR: 71 Insulin, Lantus BSA: Solostar, 2.2 m2 Lasix,
Patient Lisinopril Location: 3SW Ordering
Physician: Reason For Study: Carolin, Pre-Op CV Exam - Brig Z01.810. Performed By:

Yessica, History: Bariatric MD Joaquín surgery, Lap Interpretati gastric sleeve on Summary
Abnormal Medications: study Small Humalog Insulin, area of mild Lantus Solostar, ischemia Lasix, Lisinopril involving the
inferolateral Ordering wall. Normal Physician: global and Carolin, Brig regional wall
motion in all Performed By: Joaquín Patterson MD The image interpretatio

n was Interpretation complicated Summary by
Abnormal significant study diaphragmatic
Small area of mild attenuation. ischemia involving Incidentally the inferolateral , wall. Normal splenomegaly global was noticed
and on this regional wall study. motion in all Stress territories. Results
The Protocol: image Lexiscan interpretation was Maximum complicated by Predicted HR: significant 151 bpm diaphragmatic Target HR:
128 bpm attenuation. % Maximum
Predicted HR: Incidentally, 58 % splenomegaly was Duration noticed on this Heart Stage study.

(mm:ss) Stress Results Rate BP
Dose Protocol: Comment Lexiscan (bpm) Maximum Predicted Baseline HR: 151 bpm
71 140/82 Target HR: 128 bpm Sinus % Maximum Rhythm Predicted HR: 58 % (Lexiscan) Bolus 0.4

Duration Heart / 31.90mCi
(Sestamibi Stage mg (mm:ss) Rate BP Dose Comment injection)
(bpm) Lexiscan; 1
minute Baseline 1:00 74 71 142/62 140/82 Sinus Sinus Rhythm, Rhythm Unchanged
Lexiscan; 2 (Lexiscan) Bolus minutes 0.4 1:00 87 / 31.90mCi 117/65 (Sestamibi Sinus Rhythm,
mg Unchanged Lexiscan; 3 minutes injection) 1:00 85
116/64 Lexiscan; 1 minute Sinus Rhythm, 1:00 74 Unchanged 142/62 Sinus Recovery 2 Rhythm, Unchanged minutes
83 Lexiscan; 2 106/66 minutes 1:00 Sinus Rhythm, 87 117/65 Unchanged Sinus Rhythm, Recovery; 4 Unchanged minutes
83 Lexiscan; 3 110/65 minutes 1:00 Sinus Rhythm, 85 116/64 Unchanged Sinus Rhythm, Stress Unchanged Duration:
3:00 mm:ss Recovery 2 minutes Maximum 83 Stress HR: 87 106/66 Sinus bpm * Rhythm, Unchanged ICD-10
Pre-Op CV Recovery; 4 Exam - minutes Z01.810. 83 110/65 Risk Factors Sinus Rhythm, The patient Unchanged has a

previous Stress history of Duration: 3:00 Hypertension. mm:ss The patient
Maximum has a Stress HR: 87 bpm previous * history of

Diabetes ICD-10 mellitus.
Pre-Op Former CV Exam - Z01.810. smoker.

Medications/A Risk Factors llergies
The Morphine, patient has a Levaquin. previous history Codiene. of Hypertension. Consent The patient has a This patient
has been previous history consented for of Diabetes this mellitus. Former procedure. smoker. Procedure

The patient Medications/Aller was injected gies with 10.70mCi
Tc99m Morphine, Sestamibi IV Levaquin. Codiene. at rest. Injected by

SL. Injection Consent site: right
This hand. Stress patient has been Protocol: consented for this Lexiscan. The procedure. patient was

injected with Procedure 31.90mCi
The Tc99m patient was Sestamibi IV injected with at stress. 10.70mCi Tc99m Injected by Sestamibi IV at SL. rest. Injected Injection
Site: right by SL. Injection hand. The site: right hand. Lexiscan Stress Protocol: protocol was Lexiscan. The completed. patient Lexiscan
was stress with injected with isotope. 31.90mCi Tc99m Rest ECG Sestamibi IV at Sinus Rhythm. stress. Injected Stress by SL. ECG At peak
stress ECG Injection Site: showed No right hand. The ST-T wave Lexiscan protocol changes from was completed. baseline. At Lexiscan peak stress
stress the rhythm with isotope. showedNo

significant Rest ECG changes from
Sinus baseline. Rhythm. Rest

Perfusion Stress ECG This is a
At normal rest peak stress ECG perfusion showed No ST-T study. wave changes from Stress baseline. At peak Perfusion
Small area of stress the rhythm mild showedNo perfusion significant abnormality changes from involving the baseline. inferolateral

wall. This Rest Perfusion is reversible
on rest This is a normal imaging. rest perfusion Wall Motion study. The patient's

ejection Stress Perfusion fraction was
calculated at Small area of 78%. Normal mild perfusion global and abnormality regional wall involving the motion in all inferolateral territories. wall. LV/RV
This is Size The reversible on rest left imaging. ventricle

size is Wall Motion normal. The
The right patient's ejection ventricle fraction was size is calculated at 78%. normal. Normal global and Study Quality
Overall regional wall image quality motion in all for this territories. study is

Fair. Rest LV/RV Size images are of
The Fair left ventricle quality. Rest size is normal. images The right artifacts are ventricle size is due to normal. Severediaphar

matic Study Quality attentution.
Stress Overall image images are of quality for this Fair quality. study is Fair. Stress images Rest images are of artifacts are Fair due to
quality. Severe Rest images diapharmatic artifacts are due attentution. to Severediapharmatic attentution.
Stress images are of Fair quality. Stress images artifacts are due to Reading
Severe Physician: sushil Gates attentution. 12/14/2018 07:43 PM

Ordering Physician: Carolin, Brig Performed By: Yessica,

<grzegorz Yanes MD />
Reading Physician:
Allison Gates MD 12/14/2018 07:43 PM
Ordering Physician: Pamela Coe
Performed By: Joaquín Juan MD

</td> Echo 2D [id number] <td> 12/15/2018 [facility] 07:42</td><td> [facility] [id number] Echo 2D M-Mode Health Care (TTE) [id number] Complete (TTE) [facility] Non-Invasive </td><td> Cardiology [id number] Laboratory
[facility] Advanced
Physician [id number] Services,
[address] [place] [phone]

[place] Non-Invasive [address]
Phone [phone] Cardiology [phone] Fax
[phone] Laboratory [phone]
Adult Advanced Echocardiogra
m Report Physician Name:
Tyrone RODRIGUEZ PC MICHAEL V
[address] [place] [address] Study Date:
12/15/2018 [place], [place] 07:42 AM
[address]
Phone [phone] BP: 138/76
[phone] mmHg : Fax 1950

Adult Gender: Male Echocardiogram Age: 68 yrs Report
Name: KATHERINE RODRIGUEZ V Height: 71 in Account Study Date: Number: 12/15/2018 07:42 [id number] AM
MRN: Weight: [id number] lb BSA: 2.2 m2 Patient BP: 138/76 mmHg Location: 3SW
Reason For : 1950 Study: ATRIAL FIBRILLATION Gender: Male Ordering
Physician: Age: 68 yrs JOSSUE MORRIS, Height: 71 in Performed By:
Mono, Account Number: Naomi, [facility] [id number] Weight: 225 Interpretatio lb n Summary
BSA: 2.2 The left m2 ventricle is
Patient normal in Location: 3SW size. Mild
left Reason For Study: ventricular ATRIAL hypertrophy. FIBRILLATION Left

ventricular Ordering ejection Physician: fraction is JOSSUE MORRIS, 65%. The
left Performed By: ventricular Villareal, Naomi, wall motion RDCS is normal.

The right Interpretation ventricular Summary systolic
The left function is ventricle is normal. normal in size. Indexed left
atrial volume Mild left is normal. ventricular The atrial hypertrophy. septum is
aneurysmal. Left ventricular There is no ejection fraction atrial septal is 65%. defect or
The left patent ventricular wall foramen ovale motion is normal. by color
Doppler. The right There is no ventricular aortic systolic function stenosis. is normal. Trivial
mitral valve Indexed left regurgitation atrial volume is . Trivial normal. tricuspid
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 . The
aortic root There is no atrial is normal in septal defect or size. The patent foramen inferior vena ovale by color cava is Doppler. normal in
There size and is no aortic collapses stenosis. normally with
Trivial mitral respiration, valve suggestive of regurgitation. normal right
atrial Trivial tricuspid pressure (3 valve mmHg). regurgitation. There is a
small The aortic root is pericardial normal in size. effusion.
ICD-10 The inferior vena Atrial cava is normal in fibrillation size and collapses - I48.91. normally with Procedure
A complete respiration, two-dimension suggestive of al normal right transthoracic atrial pressure (3 echocardiogra mmHg). m was
There is performed a small (2D, pericardial M-mode, effusion. spectral and

color flow ICD-10 Doppler).
Atrial (82185). fibrillation - Study quality I48.91. is good. A

Definity Procedure contrast
A injection was complete performed to two-dimensional opacify the transthoracic left echocardiogram was ventricle. performed (2D, Left
Ventricle M-mode, spectral The left and color flow ventricle is Doppler). (41210). normal in Study quality is size. Mild good. A left
Definity ventricular contrast injection hypertrophy. was performed to The left opacify the left ventricular ventricle. ejection

fraction is Left Ventricle normal. Left
ventricular The left ventricle ejection is normal in size. fraction is Mild left 65%. The left ventricular ventricular hypertrophy. wall motion
The is normal. left ventricular Grade I ejection fraction diastolic is normal. Left dysfunction, ventricular consistent ejection with abnormal
LV fraction is 65%. relaxation. The left Right ventricular wall Ventricle motion is normal. The right Grade I ventricle is
normal in diastolic size. The dysfunction, right consistent with ventricular abnormal LV systolic relaxation. function is normal.

Left Atrium Right Ventricle Indexed left
atrial volume The right is normal. ventricle is Right normal in size. Atrium The right Normal right ventricular atrial size. systolic Atrial
Septum The function is atrial septum normal. is

aneurysmal. Left Atrium There is no
atrial septal Indexed left defect or atrial volume is patent normal. foramen ovale

by color Right Atrium Doppler.
Aortic Valve Normal right The aortic atrial size. valve is

trileaflet. Atrial Septum Focal
calcification The atrial septum . There is no is aneurysmal. aortic There is no atrial stenosis. No septal defect or aortic patent regurgitation
foramen . Mitral ovale by color Valve Mild Doppler. mitral

annular Aortic Valve calcification
The . There is no aortic valve is mitral valve trileaflet. Focal stenosis. calcification. Trivial There is no aortic mitral valve
regurgitation stenosis. No . aortic Tricuspid regurgitation. Valve

Structurally Mitral Valve normal
tricuspid Mild mitral valve. There annular is no calcification. tricuspid There is no mitral stenosis. valve stenosis. Trivial
tricuspid Trivial mitral valve valve regurgitation regurgitation. . Pulmonic

Valve Tricuspid Valve Structurally
normal Structurally pulmonic normal tricuspid valve. There valve. There is no is no tricuspid pulmonic stenosis. valve
stenosis. Trivial tricuspid Mild pulmonic valve valve regurgitation. regurgitation

. Aorta Pulmonic Valve The aortic
root is Structurally normal in normal pulmonic size. The valve. There is no visualized pulmonic valve area of stenosis. ascending
Mild aorta is pulmonic valve normal in regurgitation. size. The

visualized Aorta area of
The aortic arch aortic root is is normal in normal in size. size. The visualized Pulmonary area of ascending Artery aorta There was
is insufficient normal in size. tricuspid The visualized regurgitation area of aortic detected to arch is normal in calculate size. pulmonary

artery Pulmonary Artery systolic
pressure. There was Venous The insufficient inferior vena tricuspid cava is regurgitation normal in detected to size and calculate collapses
normally with pulmonary artery systolic pressure. respiration, suggestive of

normal right Venous atrial
The pressure (3 inferior vena cava mmHg). is normal in size Pericardium and collapses There is a normally with small
pericardial respiration, effusion. suggestive of MMode/2D normal right Measurements atrial pressure (3 & mmHg). Calculations

IVSd: 1.4 cm Pericardium
LVIDd: 4.4 There is a small cm pericardial Ao root effusion. diam:

LVIDs: 3.1 cm MMode/2D Measurements & 3.1 cm Calculations LVPWd: 1.4 cm
IVSd: 1.4 cm LA LVIDd: dimension: 4.4 cm 4.2 cm Ao root diam:
LVIDs: 3.1 cm 3.1 cm
LVPWd: 1.4 cm Asc Aorta LA diam: 3.2 cm dimension: Left
4.2 atrial volume cm (2c):
TAPSE: 1.5 cm Ao arch diam: 2.8 cm 38.5 ml Left

Asc atrial volume Aorta diam: 3.2 cm (4c): 40.0 Left atrial ml volume (2c): TAPSE: 1.5 cm
Ao arch diam: 2.8 cm 38.5 ml
Left atrial Left atrial volume volume index (4c): Left
40.0 ml atrial volume
index (2c): 17.4 ml/m2 (4c): 18.0 ml/m2

Doppler Left atrial volume Measurements index Left & atrial volume Calculations index MV E max
(2c): lat[place]: 67.4 17.4 ml/m2 cm/secMV dec (4c): 18.0 time: 0.28 ml/m2 sec Lat

E' lat[place]: MV Doppler A max latonia: Measurements & 86.3 cm/sec Calculations
MV E max latonia: 67.4 8.1 cm/sec cm/secMV dec time: MV E/A: 0.78 0.28 sec Lat E' latonia:
MV A max latonia: 86.3 cm/sec 8.1 cm/sec
Med E' lat[place]: MV E/A: 0.78 6.1 cm/sec

E/E' Lateral: 8.4 AV v max: E/E' Medial: 11.1
Med E' 136.8 cm/sec latonia: 6.1 cm/sec AV max PG: E/E' Lateral: 8.4 7.5 mmHg AV AV v max: v mean:
86.2 cm/sec E/E' Medial: AV mean P.1 3.6 mmHg AV 136.8 cm/sec VTI: 26.6 cm
AV max P.5 mmHg
AV v mean:
86.2 cm/sec LVOT max
AV mean P.3 mmHg P.6 mmHg PA v max:
AV 112.7 cm/sec VTI: 26.6 cm PI end-d
latonia: LVOT mean P.7 mmHg PA max P.1 mmHg 130.3

cm/sec LVOT LVOT max P.3 v max: 115.4 mmHg PA v max: cm/sec LVOT 112.7 cm/sec v mean: 73.6 PI end-d latonia: cm/sec LVOT
VTI: 24.1 cm LVOT mean P.7 mmHg PA max PG: 5.1 mmHg 130.3 cm/sec
LVOT v max: 115.4 Right cm/sec atrial
LVOT v pressure: mean: 73.6 cm/sec Pulm venous
sys latonia: LVOT VTI: 24.1 cm RV A' [place]:
9.8 cm/sec 3.0 mmHg 57.8 cm/sec RV E' [place]:

4.4 cm/sec Right atrial Pulm venous pressure: Pulm turner latonia: venous sys latonia: RV S lat[place]: RV A' lat[place]: 9.8 7.1 cm/sec cm/sec 42.2 cm/sec
3.0 mmHg Pulm A venous revs latonia: 57.8 cm/sec 21.6 cm/sec RV E' Pulm venous A latonia: 4.4 cm/sec Revs Dur:
0.11 sec Pulm venous turner Pulm S/D: 1.4 latonia: RV S latonia: 7.1 cm/sec
42.2 cm/sec
Pulm A venous revs lat[place]:
E/E' 21.6 cm/sec Average: 9.7
Pulm venous A Revs Dur:
0.11 sec
Pulm S/D: 1.4
Reading Physician: Krystyna Prabhakar,

12/15/2018 E/E' Average: 9.7 09:38 AM

____

Reading Physician:
Krystyna Prabhakar MD 12/15/2018 09:38 AM

</td> Nuclear [id number] <td> 12/14/2018 [place] Stress [facility] 12:05</td><td> [facility] Test,Walk [id number] Nuclear Stress [facility] [phone] Test,[employer] Non-Invasive </td><td> Cardiology [id number] Laboratory
[facility] Advanced
Physician [id number] [facility],
[address] [id number]

[place] Non-Invasive [id number]
Phone [phone] Cardiology [phone] Fax
[phone] Laboratory [phone]
Myocardial Advanced Perfusion
Imaging Physician Regadenoson
(Lexiscan) Services, Name:
[address]
[place], [place] Study Date:
12/14/2018 11588 12:05 PM
Phone [phone]
[phone] Fax BP: 140/82
(564) mmHg : [phone]

Myocardial Perfusion Imaging Gender: Male
Age: 68 yrs Regadenoson (Lexiscan)
Name: Height: 71 KATHERINE RODRIGUEZ V in Account Number: Study Date: [id number] 12/14/2018 12:05 PM Weight: 220
MRN: lb HR: [id number] BP: 140/82 mmHg BSA: 2.2
m2 Patient : 1950 Location: 3SW Reason For Gender: Male Study: Pre-Op
CV Exam - Age: 68 yrs Z01.810. History: Height: 71 in Bariatric
surgery, Lap Account Number: gastric [id number] sleeve Weight: 220 Medications: lb Humalog
HR: 71 Insulin, Lantus BSA: Solostar, 2.2 m2 Lasix,
Patient Lisinopril Location: 3SW Ordering
Physician: Reason For Study: Carolin, Pre-Op CV Exam - Brig Z01.810. Performed By:

Yessica, History: Bariatric MD Joaquín surgery, Lap Interpretati gastric sleeve on Summary
Abnormal Medications: study Small Humalog Insulin, area of mild Lantus Solostar, ischemia Lasix, Lisinopril involving the
inferolateral Ordering wall. Normal Physician: global and Carolin, Brig regional wall
motion in all Performed By: Joaquín Patterson MD The image interpretatio

n was Interpretation complicated Summary by
Abnormal significant study diaphragmatic
Small area of mild attenuation. ischemia involving Incidentally the inferolateral , wall. Normal splenomegaly global was noticed
and on this regional wall study. motion in all Stress territories. Results
The Protocol: image Lexiscan interpretation was Maximum complicated by Predicted HR: significant 151 bpm diaphragmatic Target HR:
128 bpm attenuation. % Maximum
Predicted HR: Incidentally, 58 % splenomegaly was Duration noticed on this Heart Stage study.

(mm:ss) Stress Results Rate BP
Dose Protocol: Comment Lexiscan (bpm) Maximum Predicted Baseline HR: 151 bpm
71 140/82 Target HR: 128 bpm Sinus % Maximum Rhythm Predicted HR: 58 % (Lexiscan) Bolus 0.4

Duration Heart / 31.90mCi
(Sestamibi Stage mg (mm:ss) Rate BP Dose Comment injection)
(bpm) Lexiscan; 1
minute Baseline 1:00 74 71 142/62 140/82 Sinus Sinus Rhythm, Rhythm Unchanged
Lexiscan; 2 (Lexiscan) Bolus minutes 0.4 1:00 87 / 31.90mCi 117/65 (Sestamibi Sinus Rhythm,
mg Unchanged Lexiscan; 3 minutes injection) 1:00 85
116/64 Lexiscan; 1 minute Sinus Rhythm, 1:00 74 Unchanged 142/62 Sinus Recovery 2 Rhythm, Unchanged minutes
83 Lexiscan; 2 106/66 minutes 1:00 Sinus Rhythm, 87 117/65 Unchanged Sinus Rhythm, Recovery; 4 Unchanged minutes
83 Lexiscan; 3 110/65 minutes 1:00 Sinus Rhythm, 85 116/64 Unchanged Sinus Rhythm, Stress Unchanged Duration:
3:00 mm:ss Recovery 2 minutes Maximum 83 Stress HR: 87 106/66 Sinus bpm * Rhythm, Unchanged ICD-10
Pre-Op CV Recovery; 4 Exam - minutes Z01.810. 83 110/65 Risk Factors Sinus Rhythm, The patient Unchanged has a

previous Stress history of Duration: 3:00 Hypertension. mm:ss The patient
Maximum has a Stress HR: 87 bpm previous * history of

Diabetes ICD-10 mellitus.
Pre-Op Former CV Exam - Z01.810. smoker.

Medications/A Risk Factors llergies
The Morphine, patient has a Levaquin. previous history Codiene. of Hypertension. Consent The patient has a This patient
has been previous history consented for of Diabetes this mellitus. Former procedure. smoker. Procedure

The patient Medications/Aller was injected gies with 10.70mCi
Tc99m Morphine, Sestamibi IV Levaquin. Codiene. at rest. Injected by

SL. Injection Consent site: right
This hand. Stress patient has been Protocol: consented for this Lexiscan. The procedure. patient was

injected with Procedure 31.90mCi
The Tc99m patient was Sestamibi IV injected with at stress. 10.70mCi Tc99m Injected by Sestamibi IV at SL. rest. Injected Injection
Site: right by SL. Injection hand. The site: right hand. Lexiscan Stress Protocol: protocol was Lexiscan. The completed. patient Lexiscan
was stress with injected with isotope. 31.90mCi Tc99m Rest ECG Sestamibi IV at Sinus Rhythm. stress. Injected Stress by SL. ECG At peak
stress ECG Injection Site: showed No right hand. The ST-T wave Lexiscan protocol changes from was completed. baseline. At Lexiscan peak stress
stress the rhythm with isotope. showedNo

significant Rest ECG changes from
Sinus baseline. Rhythm. Rest

Perfusion Stress ECG This is a
At normal rest peak stress ECG perfusion showed No ST-T study. wave changes from Stress baseline. At peak Perfusion
Small area of stress the rhythm mild showedNo perfusion significant abnormality changes from involving the baseline. inferolateral

wall. This Rest Perfusion is reversible
on rest This is a normal imaging. rest perfusion Wall Motion study. The patient's

ejection Stress Perfusion fraction was
calculated at Small area of 78%. Normal mild perfusion global and abnormality regional wall involving the motion in all inferolateral territories. wall. LV/RV
This is Size The reversible on rest left imaging. ventricle

size is Wall Motion normal. The
The right patient's ejection ventricle fraction was size is calculated at 78%. normal. Normal global and Study Quality
Overall regional wall image quality motion in all for this territories. study is

Fair. Rest LV/RV Size images are of
The Fair left ventricle quality. Rest size is normal. images The right artifacts are ventricle size is due to normal. Severediaphar

matic Study Quality attentution.
Stress Overall image images are of quality for this Fair quality. study is Fair. Stress images Rest images are of artifacts are Fair due to
quality. Severe Rest images diapharmatic artifacts are due attentution. to Severediapharmatic attentution.
Stress images are of Fair quality. Stress images artifacts are due to Reading
Severe Physician: lisa Herron. 12/14/2018 07:43 PM

Ordering Physician: Carolin, Brig Performed By: Yessica,

<grzegorz Yanes MD />
Reading Physician:
Allison Gates MD 12/14/2018 07:43 PM
Ordering Physician: Pamela Coe
Performed By: Joaquín Juan MD

</td> ID Date Data Source [id number] 12/18/2018 06:54:39 PM EST [facility] [id number] Corporation Name Value Range Interpretation Description Data Sup porting Code Source(s) Document(s ) Carotid/V (PACSIMAGE <td> 12/15/2018 [facility] 15:15</td><td> [facility] Arteries ) [facility] [employer] [employer] Name: MICHAEL, </td><td>cheyanne henry styleCode="Itali Sex: M : cs">(PACSIMAGE 1950 Location: Admitting )</paragraph><br Physician: CRISTÓBAL />
Final GUS COE Result Requesting

Physician: Name: JOSSUE RODRIGUEZ
Exam: US DPLX CAROTID/VERT Sex: M ART 12/15/2018
: 16:37 1950 CLINICAL Location: M INFORMATION:
Stroke. CEA Admitting workup. Physician: CRISTÓBAL TECHNIQUE: GUS COE Sonogram of the
vertebral and Requesting carotid Physician: arteries with JOSSUE MORRIS color and spectral

Doppler Exam: US DPLX supplementation CAROTID/VERT ART . 12/15/2018 16:37 COMPARISON: 03/22/2016

FINDINGS: CLINICAL Scattered INFORMATION: atherosclerotic Stroke. CEA plaques. workup. Peak systolic

velocities on TECHNIQUE: the right: Sonogram of the Right common vertebral and carotid artery: carotid arteries proximal 1:30 with cm/s, mid 107
color cm/s, distal and spectral 124 cm/s. Doppler Right external supplementation. carotid artery: 169-224 cm/s.

Right internal COMPARISON: carotid artery: 03/22/2016 proximal 392

cm/s, mid 245 FINDINGS: cm/s, distal

131 cm/s. Scattered Right ICA /CCA atherosclerotic ratio: 3.2 . plaques. Right vertebral

artery: normal Peak systolic cephalad flow. velocities on Peak the right: systolic
velocities on Right common the left: carotid artery: Left common proximal 1:30 carotid artery: cm/s, mid 107 proximal 106 cm/s, cm/s, mid 133
distal cm/s, distal 124 cm/s. 137 cm/s.
Left external Right external carotid artery: carotid artery: 116 cm/s. 169-224 cm/s. Left internal
carotid artery: Right internal proximal 94 carotid artery: cm/s, mid 196 proximal 392 cm/s, distal cm/s, mid 245 115 cm/s. cm/s, Left ICA /CCA
distal ratio: 1.8 . 131 cm/s. Left vertebral
artery: normal Right ICA /CCA cephalad flow. ratio: 3.2 . IMPRESSION:
1. 70-79% Right vertebral stenosis of the artery: normal proximal right cephalad flow. internal carotid artery,

< by NASCET br/> Peak criteria. 2. systolic 50-69% stenosis velocities on of the mid the left: right internal
carotid Left common artery.. 3. carotid artery: 50-69% stenosis proximal 106 of the mid left cm/s, mid 133 internal cm/s, carotid artery.
distal 137 cm/s. Resident
Radiologist: Left external Attending carotid artery: Radiologist: 116 cm/s. Christine Valverde
Finalizing Left internal Radiologist: carotid artery: Christine Valverde proximal 94 Transcribed cm/s, mid 196 Date: cm/s, 12/15/2018
distal 16:43 115 cm/s. Finalized Date:
12/15/2018 Left ICA /CCA 16:51 ratio: 1.8 .
Left vertebral artery: normal cephalad flow.

IMPRESSION:

1. 70-79% stenosis of the proximal right internal carotid artery,
by NASCET criteria.
2. 50-69% stenosis of the mid right internal carotid artery..
3. 50-69% stenosis of the mid left internal carotid artery.

< br/>

Resident Radiologist:
Attending Radiologist: Christine Valverde
Finalizing Radiologist: Christine Valverde
Transcribed Date: 12/15/2018 16:43
Finalized Date: 12/15/2018 16:51

</td> Carotid/V (PACSIMAGE <td> 12/15/2018 [facility] 15:15</td><td> [place] Arteries ) Final Carotid/Vertebrl [facility] Dpl-US Result Arteries Dpl[employer] Name: DONNATERENCE, </td><td><eliasgr KATHERINE henry styleCode="Itali Sex: M : cs">(PACSIMAGE 1950 Location: Admitting )</paragraph><br Physician: CRISTÓBAL />
Final GUS COE Result Requesting

Physician: Name: JOSSUE RODRIGUEZ
Exam: US DPLX CAROTID/VERT Sex: M ART 12/15/2018
: 16:37 1950 CLINICAL Location: M INFORMATION:
Stroke. CEA Admitting workup. Physician: CRISTÓBAL TECHNIQUE: GUS COE Sonogram of the
vertebral and Requesting carotid Physician: arteries with JOSSUE MORRIS color and spectral

Doppler Exam: US DPLX supplementation CAROTID/VERT ART . 12/15/2018 16:37 COMPARISON: 03/22/2016

FINDINGS: CLINICAL Scattered INFORMATION: atherosclerotic Stroke. CEA plaques. workup. Peak systolic

velocities on TECHNIQUE: the right: Sonogram of the Right common vertebral and carotid artery: carotid arteries proximal 1:30 with cm/s, mid 107
color cm/s, distal and spectral 124 cm/s. Doppler Right external supplementation. carotid artery: 169-224 cm/s.

Right internal COMPARISON: carotid artery: 03/22/2016 proximal 392

cm/s, mid 245 FINDINGS: cm/s, distal

131 cm/s. Scattered Right ICA /CCA atherosclerotic ratio: 3.2 . plaques. Right vertebral

artery: normal Peak systolic cephalad flow. velocities on Peak the right: systolic
velocities on Right common the left: carotid artery: Left common proximal 1:30 carotid artery: cm/s, mid 107 proximal 106 cm/s, cm/s, mid 133
distal cm/s, distal 124 cm/s. 137 cm/s.
Left external Right external carotid artery: carotid artery: 116 cm/s. 169-224 cm/s. Left internal
carotid artery: Right internal proximal 94 carotid artery: cm/s, mid 196 proximal 392 cm/s, distal cm/s, mid 245 115 cm/s. cm/s, Left ICA /CCA
distal ratio: 1.8 . 131 cm/s. Left vertebral
artery: normal Right ICA /CCA cephalad flow. ratio: 3.2 . IMPRESSION:
1. 70-79% Right vertebral stenosis of the artery: normal proximal right cephalad flow. internal carotid artery,

< by NASCET br/> Peak criteria. 2. systolic 50-69% stenosis velocities on of the mid the left: right internal
carotid Left common artery.. 3. carotid artery: 50-69% stenosis proximal 106 of the mid left cm/s, mid 133 internal cm/s, carotid artery.
distal 137 cm/s. Resident
Radiologist: Left external Attending carotid artery: Radiologist: 116 cm/s. Christine Valverde
Finalizing Left internal Radiologist: carotid artery: Christine Valverde proximal 94 Transcribed cm/s, mid 196 Date: cm/s, 12/15/2018
distal 16:43 115 cm/s. Finalized Date:
12/15/2018 Left ICA /CCA 16:51 ratio: 1.8 .
Left vertebral artery: normal cephalad flow.

IMPRESSION:

1. 70-79% stenosis of the proximal right internal carotid artery,
by NASCET criteria.
2. 50-69% stenosis of the mid right internal carotid artery..
3. 50-69% stenosis of the mid left internal carotid artery.

< br/>

Resident Radiologist:
Attending Radiologist: Christine Valverde
Finalizing Radiologist: Christine Valverde
Transcribed Date: 12/15/2018 16:43
Finalized Date: 12/15/2018 16:51

</td> ID Date Data Source [id number] 12/18/2018 06:54:39 [place] [facility] [id number] Name Value Range Interpretation Description Data Sup porting Code Source(s) Document(s ) Erythrocytes 3.67 m/mm3 4.70-6 <td> 12/18/2018 [facility] [#/volume] in .10 07:51</td><td> [facility] Blood m/mm3 [facility] Health Care </td><td><david Corporation raph styleCode="Bold "> 3.67 L </paragraph>
(4.70-6.10) m/mm3 </td> Leukocytes 6.8 k/mm3 4.8-10 <td> 12/18/2018 [place] [#/volume] in .8 07:51</td><td> [place] Blood by k/mm3 WBC </td><td> Health Care Automated count Corporation 6.8
(4.8-10.8) k/mm3 </td> Hemoglobin 9.4 g/dL 14.0-1 <td> 12/18/2018 [place] [Mass/volume] 8.0 07:51</td><td> [place] in Blood g/dL [facility] </td><td><[employer]id [employer] raph styleCode="Bold "> 9.4 L </paragraph>
(14.0-18.0) g/dL </td> Erythrocyte 30.2 % 32.0-3 <td> 12/18/2018 [place] mean 6.0 % 07:51</td><td> [facility] corpuscular [facility] Health Care hemoglobin </td><td><david [employer] concentration raph [Mass/volume] styleCode="Bold in Blood from "> Fetus by 30.2 Automated count L </paragraph>
(32.0-36.0) % </td> Erythrocyte 25.6 pg 27.0-3 <td> 12/18/2018 [place] mean 1.5 pg 07:51</td><td> [facility] corpuscular [facility] hemoglobin </td><td><david [employer] [Entitic mass] raph by Automated styleCode="Bold count "> 25.6 L </paragraph>
(27.0-31.5) pg </td> Erythrocyte 84.7 fL 80.0-9 <td> 12/18/2018 [place] mean 4.0 fL 07:51</td><td> [facility] corpuscular [facility]CV </td><td> Health Care volume [[employer] volume] by 84.7 Automated count
(80.0-94.0) fL </td> Hematocrit 31.1 % 40.8-4 <td> 12/18/2018 [place] [Volume 6.9 % 07:51</td><td> County Fraction] of HCT Health Care Blood by </td><td><david [employer] Automated count raph styleCode="Bold "> 31.1 L </paragraph>
(40.8-46.9) % </td> Platelets 233 k/mm3 160-41 <td> 12/18/2018 [place] [#/volume] in 0 07:51</td><td> [facility] Blood by k/mm3 Platelet Count Health Care Automated count </td><td> [employer] 233
(160-410) k/mm3 </td> Platelet mean 12.0 fL 9.8-12 <td> 12/18/2018 [facility] r volume [Entitic .8 fL 07:51</td><td> County volume] in MPV </td><td> Health Care Blood by [employer] Automated count 12.0
(9.8-12.8) fL </td> Erythrocyte 14.4 % 11.5-1 <td> 12/18/2018 [place] distribution 4.5 % 07:51</td><td> County width [Entitic RDW </td><td> Health Car e volume] by [employer] Automated count 14.4
(11.5-14.5) % </td> Glucose 170 mg/dL 70-105 <td> 12/18/2018 [place] [Mass/volume] mg/dL 07:51</td><td> County in Blood Glucose-Serum Health Care </td><td><[employer] raph styleCode="Bold "> 170 H </paragraph>
(70-105) mg/dL </td> Chloride 108 mEq/L 98-107 <td> 12/18/2018 [place] [Moles/volume] mEq/L 07:51</td><td> County in Serum or Chloride Health Care Plasma </td><td><[employer] raph styleCode="Bold "> 108 H </paragraph>
(98-107) mEq/L </td> Sodium 137 mEq/L 135-14 <td> 12/18/2018 [place] [Moles/volume] 5 07:51</td><td> County in Serum or mEq/L Sodium-Serum Health Care Plasma </td><td> [employer] 137
(135-145) mEq/L </td> Potassium 5.0 mEq/L 3.5-5. <td> 12/18/2018 [place] [Moles/volume] 1 07:51</td><td> County in Serum or mEq/L Potassium-Serum Health Care Plasma </td><td> [employer] 5.0
(3.5-5.1) mEq/L </td> Carbon dioxide, 22 mEq/L 22-30 <td> 12/18/2018 [facility] total mEq/L 07:51</td><td> County [Moles/volume] CO2 </td><td> Health Car e in Serum or Corporation Plasma 22
(22-30) mEq/L </td> Aspartate 17 U/L 4-35 <td> 12/18/2018 [place] aminotransferas U/L 07:51</td><td> County e [Enzymatic AST (SGOT) Health Care activity/volume </td><td> Corporation ] in Serum or Plasma 17
(4-35) U/L </td> Urea nitrogen 29 mg/dL 6-22 <td> 12/18/2018 [facility] r [Mass/volume] mg/dL 07:51</td><td> County in Blood BUN Health Care </td><td><[employer] raph styleCode="Bold "> 29 H </paragraph>
(6-22) mg/dL </td> Creatinine 2.46 mg/dL 0.72-1 <td> 12/18/2018 [place] [Moles/volume] .25 07:51</td><td> County in Serum or mg/dL Creatinine. Health Care Plasma </td><td><[employer] raph styleCode="Bold "> 2.46 H </paragraph>
(0.72-1.25) mg/dL </td> Bilirubin.total 0.4 mg/dL 0.2-1. <td> 12/18/2018 [facility] [Mass/volume] 3 07:51</td><td> County in Blood mg/dL Bilirubin - Health Care [employer] </td><td> 0.4
(0.2-1.3) mg/dL </td> Proteins - 5.8 g/dL 6.4-8. <td> 12/18/2018 [place] Total 3 g/dL 07:51</td><td> [facility] Proteins - Health Care [employer] </td><td><[employer] raph styleCode="Bold "> 5.8 L </paragraph>
(6.4-8.3) g/dL </td> Alanine 11 U/L 6-55 <td> 12/18/2018 [place] aminotransferas U/L 07:51</td><td> County e [Enzymatic ALT (SGPT) Health Care activity/volume </td><td> Corporation ] in Serum or Plasma 11
(6-55) U/L </td> Albumin 3.1 g/dL 3.4-4. <td> 12/18/2018 [place] [Mass/volume] 8 g/dL 07:51</td><td> County in Serum or Albumin Health Care Plasma </td><td><[employer] raph styleCode="Bold "> 3.1 L </paragraph>
(3.4-4.8) g/dL </td> Globulin 2.7 gm/dL 2.9-4. <td> 12/18/2018 [place] [Mass/volume] 0 07:51</td><td> County in Serum gm/dL Globulin Health Care </td><td><[employer] raph styleCode="Bold "> 2.7 L </paragraph>
(2.9-4.0) gm/dL </td> Calcium 7.8 mg/dL 8.6-10 <td> 12/18/2018 [place] [Mass/volume] .2 07:51</td><td> County in Blood mg/dL Calcium Health Care </td><td><[employer] raph styleCode="Bold "> 7.8 L </paragraph>
(8.6-10.2) mg/dL </td> Hemolysis index No <td> 12/18/2018 [facility] of Serum or Hemolysis 07:51</td><td> [facility] Plasma Hemolysis Index Health Care </td><td> [facility] No Hemolysis
</td> Anion gap in 7 mEq/L 7-13 <td> 12/18/2018 [place] Serum or Plasma mEq/L 07:51</td><td> [facility] Anion [facility] [place] [facility] </td><td> [facility] 7
(7-13) mEq/L </td> Phosphate 3.2 mg/dL 2.3-4. <td> 12/18/2018 [place] [Mass/volume] 7 07:51</td><td> [facility] in Serum or mg/dL Inorganic Health Care Plasma Phosphorus [facility] </td><td> 3.2
(2.3-4.7) mg/dL </td> Prothrombin 10.1 secs 9.8-12 <td> 12/18/2018 [place] time (PT) .0 07:51</td><td> [facility] secs Prothrombin Health Care Time. [facility] </td><td> 10.1
(9.8-12.0) secs </td> Lipemic index No Lipemia <td> 12/18/2018 [facility] er of Serum or 07:51</td><td> [facility] Plasma Lipemia Index [facility] [place] [facility] </td><td> [facility] No Lipemia
</td> Icteric index Non <td> 12/18/2018 [facility] r of Serum or Icteric 07:51</td><td> [facility] Plasma Icteric Index [facility] </td><td> [facility] Non Icteric
</td> Hemoglobin A1C 9.1 % 4.0-5. <td> 12/13/2018 [facility] 6 % 07:39</td><td> [facility] Hemoglobin A1C [facility] </td><td><[facility] graph styleCode="Bold "> 9.1 H </paragraph>
(4.0-5.6) %
Increased risk for diabetes mellitus is seen in patients with HgA1C values
between 5.7-6.4%. Values > or = 6.5% are considered diagnostic of diabetes
mellitus.
===
ESTIMATED AVERAGE GLUCOSE (eAG)
---
RELATIONSHIP BETWEEN A1C AND eAG
===
A1C(%) eAG(mg/dL)
6 1 26
7 1 54
8 1 83
9 2 12
10 240
11 269
12 298
Source: Adapted from [place] [employer]. Standards of medical
care in diabetes-2014. Diabetes Care.2014;37(Duran pp 1):S14-S80, table 8.

(4.0-5.6) % </td> Cholesterol 144 mg/dL 125-24 <td> 12/13/2018 [place] [Moles/volume] 0 07:39</td><td> [facility] in Serum or mg/dL Cholesterol Health Care Plasma </td><td> Corporation 144
(125-240) mg/dL </td> aPTT panel - 27.6 secs 25.0-3 <td> 12/18/2018 [place] Platelet poor 2.0 07:51</td><td> [facility] plasma secs Partial [facility] Care Thromboplastin [facility] Time </td><td> 27.6
(25.0-32.0) secs </td> Magnesium 2.1 mg/dL 1.6-2. <td> 12/18/2018 [place] [Mass/volume] 6 07:51</td><td> [facility] in Serum or mg/dL Magnesium Level Health Care Plasma </td><td> [employer] 2.1
(1.6-2.6) mg/dL </td> Cholesterol in 38 mg/dL >60 <td> 12/13/2018 [facility] HDL mg/dL 07:39</td><td> [facility] [Mass/volume] HDL Cholesterol Health Car e in Serum or </td><td> [employer] Plasma 38
(>60) mg/dL </td> Cholesterol in 70 mg/dL <150 <td> 12/13/2018 [facility] LDL mg/dL 07:39</td><td> [facility] [Mass/volume] LDL Cholesterol Health Car e in Serum or </td><td> [employer] Plasma 70
(<150) mg/dL </td> Triglyceride 182 mg/dL 30-200 <td> 12/13/2018 [place] [Mass/volume] mg/dL 07:39</td><td> [facility] in Serum or Triglyceride Health Care Plasma </td><td> [employer] 182
(30-200) mg/dL </td> Glucose 250 mg/dL 70-105 <td> 12/18/2018 [place] [Mass/volume] mg/dL 16:42</td><td> [facility] in Capillary Glucose - Health Care blood by Finger Stick [employer] Glucometer </td><td><david raph styleCode="Bold "> 250 H </paragraph>
(70-105) mg/dL </td> Erythrocytes 3.67 m/mm3 4.70-6 <td> 12/18/2018 [place] r [#/volume] in .10 07:51</td><td> [facility] Blood m/mm3 RBC Health Care </td><td><[employer] raph styleCode="Bold "> 3.67 L </paragraph>
(4.70-6.10) m/mm3 </td> Leukocytes 6.8 k/mm3 4.8-10 <td> 12/18/2018 [place] [#/volume] in .8 07:51</td><td> [facility] Blood by k/mm3 WBC </td><td> Health Care Automated count Corporation 6.8
(4.8-10.8) k/mm3 </td> Erythrocyte 25.6 pg 27.0-3 <td> 12/18/2018 [place] mean 1.5 pg 07:51</td><td> [facility] corpuscular MCH Health Care hemoglobin </td><td><[employer] [Entitic mass] raph by Automated styleCode="Bold count "> 25.6 L </paragraph>
(27.0-31.5) pg </td> Erythrocyte 84.7 fL 80.0-9 <td> 12/18/2018 [place] mean 4.0 fL 07:51</td><td> [facility] corpuscular MCV </td><td> Health Care volume [[employer] volume] by 84.7 Automated count
(80.0-94.0) fL </td> Hematocrit 31.1 % 40.8-4 <td> 12/18/2018 [place] [Volume 6.9 % 07:51</td><td> County Fraction] of HCT Health Care Blood by </td><td><[employer] Automated count raph styleCode="Bold "> 31.1 L </paragraph>
(40.8-46.9) % </td> Hemoglobin 9.4 g/dL 14.0-1 <td> 12/18/2018 [place] [Mass/volume] 8.0 07:51</td><td> [facility] in Blood g/dL HGB Health Care </td><td><[employer] raph styleCode="Bold "> 9.4 L </paragraph>
(14.0-18.0) g/dL </td> Platelets 233 k/mm3 160-41 <td> 12/18/2018 [place] [#/volume] in 0 07:51</td><td> [facility] Blood by k/mm3 Platelet Count Health Care Automated count </td><td> [employer] 233
(160-410) k/mm3 </td> Platelet mean 12.0 fL 9.8-12 <td> 12/18/2018 [facility] r volume [Entitic .8 fL 07:51</td><td> County volume] in MPV </td><td> Health Care Blood by [employer] Automated count 12.0
(9.8-12.8) fL </td> Erythrocyte 14.4 % 11.5-1 <td> 12/18/2018 [place] distribution 4.5 % 07:51</td><td> County width [Entitic RDW </td><td> Health Car e volume] by [employer] Automated count 14.4
(11.5-14.5) % </td> Erythrocyte 30.2 % 32.0-3 <td> 12/18/2018 [place] mean 6.0 % 07:51</td><td> [facility] corpuscular [facility] Health Care hemoglobin </td><td><david [employer] concentration raph [Mass/volume] styleCode="Bold in Blood from "> Fetus by 30.2 Automated count L </paragraph>
(32.0-36.0) % </td> Potassium 5.0 mEq/L 3.5-5. <td> 12/18/2018 [place] [Moles/volume] 1 07:51</td><td> County in Serum or mEq/L Potassium-Serum Health Care Plasma </td><td> [employer] 5.0
(3.5-5.1) mEq/L </td> Sodium 137 mEq/L 135-14 <td> 12/18/2018 [place] [Moles/volume] 5 07:51</td><td> County in Serum or mEq/L Sodium-Serum Health Care Plasma </td><td> [employer] 137
(135-145) mEq/L </td> Glucose 170 mg/dL 70-105 <td> 12/18/2018 [place] [Mass/volume] mg/dL 07:51</td><td> County in Blood Glucose-Serum Health Care </td><td><[employer] raph styleCode="Bold "> 170 H </paragraph>
(70-105) mg/dL </td> Creatinine 2.46 mg/dL 0.72-1 <td> 12/18/2018 [place] [Moles/volume] .25 07:51</td><td> County in Serum or mg/dL Creatinine. Health Care Plasma </td><td><[employer] raph styleCode="Bold "> 2.46 H </paragraph>
(0.72-1.25) mg/dL </td> Urea nitrogen 29 mg/dL 6-22 <td> 12/18/2018 [facility] r [Mass/volume] mg/dL 07:51</td><td> County in Blood BUN Health Care </td><td><[employer] raph styleCode="Bold "> 29 H </paragraph>
(6-22) mg/dL </td> Carbon dioxide, 22 mEq/L 22-30 <td> 12/18/2018 [facility] total mEq/L 07:51</td><td> [facility] [Moles/volume] CO2 </td><td> Health Car e in Serum or Corporation Plasma 22
(22-30) mEq/L </td> Chloride 108 mEq/L 98-107 <td> 12/18/2018 [place] [Moles/volume] mEq/L 07:51</td><td> County in Serum or Chloride Health Care Plasma </td><td><[employer] raph styleCode="Bold "> 108 H </paragraph>
(98-107) mEq/L </td> Bilirubin.total 0.4 mg/dL 0.2-1. <td> 12/18/2018 [facility] [Mass/volume] 3 07:51</td><td> County in Blood mg/dL Bilirubin - Health Care [employer] </td><td> 0.4
(0.2-1.3) mg/dL </td> Alanine 11 U/L 6-55 <td> 12/18/2018 [place] aminotransferas U/L 07:51</td><td> [facility] e [Enzymatic ALT (SGPT) Health Care activity/volume </td><td> [employer] ] in Serum or Plasma 11
(6-55) U/L </td> Aspartate 17 U/L 4-35 <td> 12/18/2018 [place] aminotransferas U/L 07:51</td><td> [facility] e [Enzymatic AST (SGOT) Health Care activity/volume </td><td> [employer] ] in Serum or Plasma 17
(4-35) U/L </td> Anion gap in 7 mEq/L 7-13 <td> 12/18/2018 [place] Serum or Plasma mEq/L 07:51</td><td> [facility] Anion Gap Health Care </td><td> [employer] 7
(7-13) mEq/L </td> Calcium 7.8 mg/dL 8.6-10 <td> 12/18/2018 [place] [Mass/volume] .2 07:51</td><td> [facility] in Blood mg/dL Calcium Health Care </td><td><[employer] raph styleCode="Bold "> 7.8 L </paragraph>
(8.6-10.2) mg/dL </td> Albumin 3.1 g/dL 3.4-4. <td> 12/18/2018 [place] [Mass/volume] 8 g/dL 07:51</td><td> [facility] in Serum or Albumin Health Care Plasma </td><td><[employer] raph styleCode="Bold "> 3.1 L </paragraph>
(3.4-4.8) g/dL </td> Proteins - 5.8 g/dL 6.4-8. <td> 12/18/2018 [place] Total 3 g/dL 07:51</td><td> [facility] Proteins - Health Care [employer] </td><td><david raph styleCode="Bold "> 5.8 L </paragraph>
(6.4-8.3) g/dL </td> Icteric index Non <td> 12/18/2018 [facility] r of Serum or Icteric 07:51</td><td> [facility] Plasma Icteric Index [facility] [place] [facility] </td><td> [facility] Non Icteric
</td> Lipemic index No Lipemia <td> 12/18/2018 [facility] er of Serum or 07:51</td><td> [facility] Plasma Lipemia Index [facility] [place] [facility] </td><td> [facility] No Lipemia
</td> Hemolysis index No <td> 12/18/2018 [facility] of Serum or Hemolysis 07:51</td><td> [facility] Plasma Hemolysis Index [facility] </td><td> [facility] No Hemolysis
</td> Globulin 2.7 gm/dL 2.9-4. <td> 12/18/2018 [place] [Mass/volume] 0 07:51</td><td> [facility] in Serum gm/dL Globulin Health Care </td><td><[facility] raph styleCode="Bold "> 2.7 L </paragraph>
(2.9-4.0) gm/dL </td> aPTT panel - 27.6 secs 25.0-3 <td> 12/18/2018 [place] Platelet poor 2.0 07:51</td><td> [facility] plasma secs Partial [facility] Care Thromboplastin [facility] Time </td><td> 27.6
(25.0-32.0) secs </td> Prothrombin 10.1 secs 9.8-12 <td> 12/18/2018 [place] time (PT) .0 07:51</td><td> [facility] secs Prothrombin Health Care Time. [facility] </td><td> 10.1
(9.8-12.0) secs </td> Phosphate 3.2 mg/dL 2.3-4. <td> 12/18/2018 [place] [Mass/volume] 7 07:51</td><td> County in Serum or mg/dL Inorganic Health Care Plasma [employer] </td><td> 3.2
(2.3-4.7) mg/dL </td> Cholesterol in 38 mg/dL >60 <td> 12/13/2018 [facility] er HDL mg/dL 07:39</td><td> [facility] [Mass/volume] HDL Cholesterol Health Car e in Serum or </td><td> Corporation Plasma 38
(>60) mg/dL </td> Cholesterol 144 mg/dL 125-24 <td> 12/13/2018 [place] [Moles/volume] 0 07:39</td><td> [facility] in Serum or mg/dL Cholesterol Health Care Plasma </td><td> [employer] 144
(125-240) mg/dL </td> Hemoglobin A1C 9.1 % 4.0-5. <td> 12/13/2018 [facility] 6 % 07:39</td><td> [facility] Hemoglobin A1C Health Care </td><td><para [employer] graph styleCode="Bold "> 9.1 H </paragraph>
(4.0-5.6) %
Increased risk for diabetes mellitus is seen in patients with HgA1C values
between 5.7-6.4%. Values > or = 6.5% are considered diagnostic of diabetes
mellitus.
===
ESTIMATED AVERAGE GLUCOSE (eAG)
---
RELATIONSHIP BETWEEN A1C AND eAG
===
A1C(%) eAG(mg/dL)
6 1 26
7 1 54
8 1 83
9 2 12
10 240
11 269
12 298
Source: Adapted from [place] [employer]. Standards of medical
care in diabetes-2014. Diabetes Care.2014;37(Duran pp 1):S14-S80, table 8.

(4.0-5.6) % </td> Magnesium 2.1 mg/dL 1.6-2. <td> 12/18/2018 [place] [Mass/volume] 6 07:51</td><td> County in Serum or mg/dL Magnesium Level Health Care Plasma </td><td> [employer] 2.1
(1.6-2.6) mg/dL </td> Glucose 250 mg/dL 70-105 <td> 12/18/2018 [place] [Mass/volume] mg/dL 16:42</td><td> County in Capillary Glucose - Health Care blood by Finger Stick [employer] Glucometer </td><td><david raph styleCode="Bold "> 250 H </paragraph>
(70-105) mg/dL </td> Triglyceride 182 mg/dL 30-200 <td> 12/13/2018 [place] [Mass/volume] mg/dL 07:39</td><td> County in Serum or Triglyceride Health Care Plasma </td><td> [employer] 182
(30-200) mg/dL </td> Cholesterol in 70 mg/dL <150 <td> 12/13/2018 [facility] LDL mg/dL 07:39</td><td> County [Mass/volume] LDL Cholesterol Health Car e in Serum or </td><td> [employer] Plasma 70
(<150) mg/dL </td> Procedure Social History Code Duration Value Status Description Data Source(s ) Smoking Former smoker completed Former smoker [facility] Vital Signs ID Date Data Source UNK Name Value Range Interpretation Code Description Data Source(s) Diastolic blood 63 {} Normal (applies to 63 {} [place] pressure non-numeric results) [facility] Systolic blood 130 {} Normal (applies to 130 {} [place] pressure non-numeric results) [facility] First Respiration 20.0000 {} Normal (applies to 20.0000 {} [place] rate Set non-numeric results) [facility] ty [facility] on Heart rate 60.0000 {} Normal (applies to 60.0000 {} [place] non-numeric results) [facility] Body temperature 98.2000 {} Normal (applies to 98.2000 {} [place] non-numeric results) [facility] wt - obtain Normal (applies to {} [place] non-numeric results) [facility] weight - kg 102.2720 {} Normal (applies to 102.2720 {} [place] non-numeric results) [facility] on Diastolic blood 72 {} Normal (applies to 72 {} [place] pressure non-numeric results) [facility] on Systolic blood 158 {} Normal (applies to 158 {} [place] pressure non-numeric results) Coun ty [facility] on First Respiration 17.0000 {} Normal (applies to 17.0000 {} [place] rate Set non-numeric results) Coun ty [facility] on Heart rate 84.0000 {} Normal (applies to 84.0000 {} [place] non-numeric results) [facility] on Body temperature 98.3000 {} Normal (applies to 98.3000 {} [place] non-numeric results) [facility] ty [facility] on Diastolic blood 70 {} Normal (applies to 70 {} [place] pressure non-numeric results) [facility] on Systolic blood 150 {} Normal (applies to 150 {} [facility] pressure non-numeric results) Coun ty [facility] on First Respiration 14.0000 {} Normal (applies to 14.0000 {} [place] rate Set non-numeric results) [facility] on Heart rate 75.0000 {} Normal (applies to 75.0000 {} [place] non-numeric results) [facility] on Body temperature 98.0000 {} Normal (applies to 98.0000 {} [place] non-numeric results) [facility] on wt - obtain Normal (applies to {} [place] non-numeric results) [facility] on weight - kg 102.2720 {} Normal (applies to 102.2720 {} [place] non-numeric results) [facility] on Patient Treatment Plan of Care Planned Activity Planned Date Details Description Data Source (s) uLcas (Furosemide) 10/01/2019 08:46:40 We [facility] Corpor[facility]
[2020-08-02 09:51] VITALS: BMI 28.1
--- NOTE | 2020-08-03 10:58 | HP ---
Admitting History and Physical - Admission Chief Complaint: RLE ulcer on foot. S/P amputation site. 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 Cardiovascular: Yes: CAD, HTN, Other Renal/: Yes: Renal Failure, Renal Inusuff Infectious Disease: Yes: MRSA (Lt finger abscess) Endocrine: Yes: Diabetes Mellitus Dermatology: Yes: Cellulitis - Past Surgical History Past Surgical History: Yes: Bariatric Surgery, CABG, Carotid Endarterectomy - Advance Directives Advance Directives: Yes: Health Care Proxy - Smoking History Smoking history: Never smoked Have you smoked in the past 12 months: No If you are a former smoker, when did you quit?: 25 years ago - Alcohol/Substance Use Hx Alcohol Use: No History of Substance Use: reports: None - Social History ADL: Independent History of Recent Travel: No Home Medications - Allergies Allergies/Adverse Reactions: Allergies Allergy/AdvReac Type Severity Reaction Status Date / Time levofloxacin [From Levaquin] Allergy Intermediate Verified 08/02/20 09:41 morphine Allergy Intermediate Vomiting Verified 08/02/20 09:41 codeine AdvReac Verified 08/02/20 09:41 - Home Medications Home Medications: Ambulatory Orders Zolpidem Tartrate [Ambien] 10 mg PO HS 01/06/18 Duloxetine HCl 40 mg PO DAILY 07/20/19 Gabapentin [Neurontin -] 100 mg PO BID 04/12/20 Omeprazole 20 mg PO DAILY 06/07/20 Sennosides [Senna -] 1 tab PO HS PRN #30 tablet 07/13/20 Sodium Bicarbonate - 650 mg PO BID #60 tablet 07/13/20 Apixaban [Eliquis -] 2.5 mg PO BID 07/25/20 Insulin Pump [Insulin Pump - (Nf)] 100 units SQ PRN PRN 07/28/20 Metoprolol Succinate [Toprol XL -] 12.5 mg PO DAILY 07/28/20 Review of Systems - Review of Systems Constitutional: reports: No Symptoms Eyes: reports: No Symptoms HENT: reports: No Symptoms Neck: reports: No Symptoms Cardiovascular: reports: No Symptoms Respiratory: reports: No Symptoms Gastrointestinal: reports: No Symptoms Genitourinary: reports: No Symptoms Breasts: reports: No Symptoms Reported Musculoskeletal: reports: No Symptoms Integumentary: reports: No Symptoms Neurological: reports: No Symptoms Endocrine: reports: No Symptoms Hematology/Lymphatic: reports: No Symptoms Psychiatric: reports: No Symptoms Physical Examination Constitutional: Yes: Well Nourished, No Distress, Calm Eyes: Yes: WNL, Conjunctiva Clear, EOM Intact HENT: Yes: WNL, Atraumatic, Normocephalic Neck: Yes: WNL, Supple, Trachea Midline Cardiovascular: Yes: WNL, Regular Rate and Rhythm Respiratory: Yes: WNL, Regular, CTA Bilaterally Gastrointestinal: Yes: WNL, Normal Bowel Sounds Musculoskeletal: Yes: WNL Extremities: Yes: WNL Edema: No Peripheral Pulses WNL: No Integumentary: Yes: WNL Neurological: Yes: WNL, Alert, Oriented ...Motor Strength: WNL Psychiatric: Yes: WNL Problem List - Problems (1) Type 2 diabetes mellitus with foot ulcer Assessment/Plan: for angiogram today Problems reviewed: Yes Code(s): E11.621 - TYPE 2 DIABETES MELLITUS WITH FOOT ULCER; L97.509 - NON- PRESSURE CHRONIC ULCER OTH PRT UNSP FOOT W UNSP SEVERITY
[2020-08-03 11:16] LABS: POTASSIUM 3.4 mmol/L (3.5-5.1)
[2020-08-03] MEDS ORDERED: DEXTROSE 50%-WATER 25 GM/50 ML DISP.SYRIN ONE (12:06)
[2020-08-03] MEDS ORDERED: LIDOCAINE HCL 1%, 10 MG/ML (20ML VIAL) ONE (13:14)
[2020-08-03] MEDS ORDERED: HEPARIN NA (PORCINE) 5,000 UNITS/ML 1ML VIAL ONE (13:15)
[2020-08-03] MEDS ORDERED: PROPOFOL 20 ML ONE (13:34)
[2020-08-03] MEDS ORDERED: MIDAZOLAM HCL 2 MG/2 ML SINGLE DOSE VIAL ONE (13:34)
[2020-08-03] MEDS ORDERED: ceFAZolin SODIUM 1 GM VIAL IVPB ONE (13:55)
[2020-08-03] MEDS ORDERED: ceFAZolin SODIUM 1 GM VIAL ONE ×2 (13:57)
[2020-08-03] MEDS ORDERED: PROPOFOL 1,000,000 MCG/100 ML VIAL ONE (14:37)
--- NOTE | 2020-08-03 14:54 | OP ---
Operative Note - Note: Operative Date: 08/03/20 Pre-Operative Diagnosis: left lateral foot ulcer Operation: Aortogram, LLE angiogram , anterior tibial artery angioplasty Findings: Severe ant tibial artery disease Post-Operative Diagnosis: Same as Pre-op Surgeon: Matt Garcia Anesthesia: MAC Estimated Blood Loss (mls): 50 Operative Report Dictated: Yes
[2020-08-03 16:20] VITALS: TEMP 97.1
[2020-08-03 17:09] VITALS: BP 169/75; PULSE 77
--- NOTE | 2020-08-09 08:19 | OP ---
DATE OF OPERATION: 08/03/2020 PREOPERATIVE DIAGNOSIS: Bilateral foot ulcer. POSTOPERATIVE DIAGNOSIS: Bilateral foot ulcer. PROCEDURE: Aortogram, left lower extremity angiogram, anterior tibial artery angioplasty. SURGEON: Matt Mix DO ANESTHESIA: Fractional. BLOOD LOSS: 50 mL. INDICATION: Patient is a 70-year-old male that comes in through Ambulatory Surgery because he has a left lateral foot ulcer nonhealing. He has been treated with antibiotics before finding it to be MRI negative for osteomyelitis. Preoperative ultrasound in the office showed that he has tibial disease and that he needs an angiogram. Patient was cleared by Cardiology and Medicine and then came into Ambulatory Surgery. Patient was thought to be COVID-19 negative. Patient was consented for the procedure, understanding all risks, benefits, alternatives, then taken to the operating room. DESCRIPTION OF PROCEDURE: Once in the operating room, he was laid on the operating table in the supine manner and the areas of the right and left groin were prepped and draped in the sterile surgical manner. We then injected 10 mL of lidocaine 1% over the right common femoral artery. We then went ahead and used a Micropuncture needle and punctured the right common femoral artery. A Micropuncture wire was inserted. Micropuncture sheath inserted. Traditional 5-Czech sheath was inserted. We then placed a 0.035 floppy guidewire up into the aorta followed by Omni Flush catheter. We then shot an aortogram via hand injection, showing that the aorta and iliac arteries were without any disease. We then used a 0.035 floppy guidewire, went up and over to the left common femoral artery. An Omni Flush catheter followed. We then shot an angiogram of the left lower extremity, showing that the common femoral artery, the profunda and the SFA were patent. The popliteal artery was patent and the TP trunk was patent, but the anterior tibial artery had disease in the proximal portion going down about 10 cm and the peroneal artery was patent. At this point we placed a 0.035 stiff guidewire into the SFA. Omni Flush catheter was removed. A 6 x 45 crossover sheath was placed; 5000 units of IV heparin were administered to the patient. We then placed a 0.035 stiff guidewire down into the distal popliteal artery and using a Quick-Cross catheter into the anterior tibial artery and the wire was placed into the distal anterior tibial artery. We then exchanged the wire for a 300 Field Naturalist wire which was a 0.014 wire. We then went ahead and used a 2.5 x 220 Ultraverse balloon and performed angioplasty of the entire anterior tibial artery. Completion angiogram now showed that the anterior tibial artery was patent. There was good brisk flow into the foot. There were some branches that were lighting up going to the lateral aspect of the foot. No more intervention is needed now. There is blood flow getting to the forefoot, and now we will have to see if the ulcer heals. We went ahead and brought our sheath up and over and StarClose device was successfully deployed in the right common femoral artery. Pressure was held for 5 minutes. After there was no more bleeding. The area was wet and dried, and Dermabond was placed. Patient tolerated the procedure with no complications. Patient transferred to PACU in stable condition. MATT MIX DO [id number]
== END 2020-08-03 17:30 | disposition home or self-care (01) ==
LOC: JASU-SURG 04:53
PROVIDERS: ATTEND Surgery Vascular Surgery
PROC: 047 Lower Arteries, Dilation (ICD-10-PCS; principal; 2020-08-03 12:00)
DX: E13.621 Other specified diabetes mellitus with foot ulcer (principal); L97.519 Non-pressure chronic ulcer of other part of right foot with unspecified severity; I25.10 Atherosclerotic heart disease of native coronary artery without angina pectoris; I13.10 Hypertensive heart and chronic kidney disease without heart failure, with stage 1 through stage 4 chronic kidney disease, or unspecified chronic kidney disease; N18.9 Chronic kidney disease, unspecified; Z96.41 Presence of insulin pump (external) (internal); Z79.4 Long term (current) use of insulin; I77.89 Other specified disorders of arteries and arterioles
CPT/HCPCS: 37228; C1725; 36415; 76000-TC-FY; 82947; 82962; 84132; 94760; J1644

== ENCOUNTER 2020-09-05 11:41 | Inpatient (IN) | payer OTHER, BC ==
[2020-09-05] MEDS ORDERED: ACETAMINOPHEN 1000 MG/100 ML VIAL (NON FORMULARY) IVPB ONE (12:30)
[2020-09-05] MEDS ORDERED: VANCOMYCIN 2,000 MG in DEXTROSE 5%-WATER - 250 ML IVPB ONE (12:31)
[2020-09-05] MEDS ORDERED: ACETAMINOPHEN INJECTION 100 ML IVPB ONE (12:31)
[2020-09-05] MEDS ORDERED: CEFEPIME 0.5 GM in DEXTROSE 5%-WATER - 100 ML IVPB ONE (12:34)
[2020-09-05] MEDS ORDERED: VANCOMYCIN 1 GRAM (PRE-DOCKED) 2,000 MG/500 ML BAG IVPB ONE (12:36)
[2020-09-05] MEDS ORDERED: CEFEPIME 1 GM/100 ML BAG IVPB ONE (12:42)
[2020-09-05 12:48] LABS: VENOUS BASE EXCESS -2.4 mmol/L (-2-2); VENOUS O2 SATURATION 34.3 % (70-80); VENOUS PCO2 41.8 mmHg (38-52); VENOUS PH 7.357 (7.310-7.410)
[2020-09-05 13:02] LABS: BASO % 0.3 % (0-2.0); EOS % 0.7 % (0-4.5); HEMATOCRIT 29.7 % (35.4-49); HEMOGLOBIN 9.3 GM/dL (11.7-16.9); LYMPH % 4.2 % (8-40); MCH 25.8 pg (25.7-33.7); MCHC 31.3 g/dl (32.0-35.9); MEAN CELL VOLUME 82.7 fl (80-96); MEAN PLT VOLUME 8.4 fl (7.5-11.1); MONO % 4.9 % (3.8-10.2); NEUT % 89.9 % (42.8-82.8); PLATELET COUNT 346 K/MM3 (134-434); RBC 3.59 M/mm3 (4.00-5.60); RDW 16.7 % (11.9-15.9); WHITE BLOOD COUNT 10.2 K/mm3 (4.0-10.0)
[2020-09-05 13:07] LABS: EPI CELLS >36 /uL (0-25.1); HYALINE CASTS 2 /uL (0-3.1); PH,URINE 5.5 (5.0-8.0); URINE APPEARANCE CLOUDY; URINE BACTERIA 10 /uL (0-1359); URINE BILIRUBIN NEGATIVE (NEGATIVE); URINE COLOR YELLOW; URINE GLUCOSE (UA) 3+ (NEGATIVE); URINE KETONE TRACE (NEGATIVE); URINE LEUK ESTERASE NEGATIVE (NEGATIVE); URINE NITRITE NEGATIVE (NEGATIVE); URINE PROTEIN 4+ (NEGATIVE); URINE RBC 164 /uL (0-23.9); URINE UROBILINOGEN 0.2 mg/dL (0.2-1.0)
[2020-09-05 13:14] LABS: INR 1.35 (0.83-1.09); PROTHROMBIN TIME (PATIENT) 16.5 SEC (9.7-13.0)
[2020-09-05 13:16] LABS: ACTIVATED PTT 36.9 SECONDS (25.2-36.5)
[2020-09-05 13:28] LABS: CALCIUM 8.5 mg/dL (8.5-10.1)
[2020-09-05 13:29] LABS: ALBUMIN 2.3 g/dl (3.4-5.0)
[2020-09-05 13:33] LABS: BILIRUBIN,TOTAL 0.4 mg/dL (0.2-1); TOT PROT 7.1 g/dl (6.4-8.2)
[2020-09-05] MEDS ORDERED: INSULIN REGULAR HUMAN 100 UNITS/ML *VIAL IVPUSH ONE (13:39)
[2020-09-05] MEDS ORDERED: INSULIN REGULAR HUMAN 100 UNITS/ML *VIAL ONE (14:02)
[2020-09-05 15:59] LABS: URINE WBC 70.3 /uL (0-25.8)
[2020-09-05] MEDS ORDERED: INSULIN REGULAR HUMAN 100 UNITS/ML *VIAL SQ PRN (17:02)
[2020-09-05 18:59] VITALS: BMI 29.4
[2020-09-05] MEDS ORDERED: HYDROCORTISONE 1% TOPICAL CREAM 30 GM TUBE TP PRN (21:14)
[2020-09-05] MEDS: INSULIN SLIDING SCALE (NOVOLOG) 1 VIAL SQ SCH (21:26)
[2020-09-05] MEDS: GABAPENTIN 100 MG CAPSULE PO SCH (21:27)
[2020-09-05] MEDS: APIXABAN 2.5 MG TABLET PO SCH (21:27)
[2020-09-05] MEDS: ZOLPIDEM TARTRATE 5 MG TABLET PO PRN (21:53)
[2020-09-05] MEDS ORDERED: INSULIN SLIDING SCALE (NOVOLOG) 1 VIAL SQ SCH (22:00)
[2020-09-06] MEDS: INSULIN SLIDING SCALE (NOVOLOG) 1 VIAL SQ SCH ×4 (06:16→22:34)
[2020-09-06] MEDS ORDERED: INSULIN (NOVOLOG) ASPART 100 UNITS/ML 10ML VIAL ONE ×2 (06:19→22:31)
[2020-09-06 07:45] LABS: INR 1.39 (0.83-1.09); PROTHROMBIN TIME (PATIENT) 16.9 SEC (9.7-13.0)
[2020-09-06 07:46] LABS: BASO % 0.5 % (0-2.0); EOS % 2.6 % (0-4.5); HEMATOCRIT 27.1 % (35.4-49); HEMOGLOBIN 8.5 GM/dL (11.7-16.9); LYMPH % 9.8 % (8-40); MCH 25.8 pg (25.7-33.7); MCHC 31.3 g/dl (32.0-35.9); MEAN CELL VOLUME 82.6 fl (80-96); MEAN PLT VOLUME 8.6 fl (7.5-11.1); MONO % 6.9 % (3.8-10.2); NEUT % 80.2 % (42.8-82.8); PLATELET COUNT 298 K/MM3 (134-434); RBC 3.28 M/mm3 (4.00-5.60); RDW 17.1 % (11.9-15.9); WHITE BLOOD COUNT 6.4 K/mm3 (4.0-10.0)
[2020-09-06 07:48] LABS: ACTIVATED PTT 33.1 SECONDS (25.2-36.5)
[2020-09-06 08:03] LABS: POTASSIUM 3.7 mmol/L (3.5-5.1)
[2020-09-06 08:14] LABS: ALBUMIN 1.8 g/dl (3.4-5.0); BLOOD UREA NITROGEN 34.2 mg/dL (7-18)
[2020-09-06 08:15] LABS: CREATININE 4.6 mg/dL (0.55-1.3)
[2020-09-06 08:16] LABS: BILIRUBIN,TOTAL 0.4 mg/dL (0.2-1)
[2020-09-06 08:17] LABS: TOT PROT 6.1 g/dl (6.4-8.2)
[2020-09-06] MEDS: APIXABAN 2.5 MG TABLET PO SCH ×2 (09:40→22:24)
[2020-09-06] MEDS: metoPROLOL SUCCINATE 25 MG TAB.SR.24H (FP) PO SCH (09:40)
[2020-09-06] MEDS: GABAPENTIN 100 MG CAPSULE PO SCH ×2 (09:41→22:24)
[2020-09-06] MEDS ORDERED: SODIUM CHLORIDE 250 ML IV PRN ×2 (09:56→13:00)
[2020-09-06] MEDS ORDERED: HYDROCHLOROTHIAZIDE 25 MG TABLET (FP) PO SCH (10:00)
[2020-09-06] MEDS ORDERED: PIPERACILLIN/TAZOBACTAM 2.25 GM VIAL IVPB ONE ×2 (11:45→17:55)
[2020-09-06] MEDS ORDERED: DEXTROSE 5%-WATER - 50 ML IVPB ONE ×2 (11:45→17:55)
[2020-09-06] MEDS: PIPERACILLIN/TAZOB 2.25 GM 2.25 GM in DEXTROSE 5%-WATER - 50 ML IVPB SCH ×2 (12:00→18:07)
[2020-09-06] MEDS ORDERED: EPOETIN ALFA-EPBX 10,000 UNIT/ML VIAL IVPUSH ONE (15:00)
[2020-09-06] MEDS: ZOLPIDEM TARTRATE 5 MG TABLET PO PRN (22:40)
[2020-09-07] MEDS ORDERED: PIPERACILLIN/TAZOBACTAM 2.25 GM VIAL IVPB ONE ×3 (02:00→17:23)
[2020-09-07] MEDS ORDERED: DEXTROSE 5%-WATER - 50 ML IVPB ONE ×3 (02:00→17:23)
[2020-09-07] MEDS: PIPERACILLIN/TAZOB 2.25 GM 2.25 GM in DEXTROSE 5%-WATER - 50 ML IVPB SCH ×3 (02:35→17:28)
[2020-09-07] MEDS: INSULIN SLIDING SCALE (NOVOLOG) 1 VIAL SQ SCH ×4 (06:12→21:49)
[2020-09-07 06:45] LABS: BASO % 0.8 % (0-2.0); EOS % 2.2 % (0-4.5); HEMATOCRIT 28.9 % (35.4-49); HEMOGLOBIN 8.9 GM/dL (11.7-16.9); LYMPH % 18.9 % (8-40); MCH 25.4 pg (25.7-33.7); MEAN CELL VOLUME 82.1 fl (80-96); MEAN PLT VOLUME 8.3 fl (7.5-11.1); MONO % 12.1 % (3.8-10.2); PLATELET COUNT 353 K/MM3 (134-434); RBC 3.52 M/mm3 (4.00-5.60); RDW 16.7 % (11.9-15.9); WHITE BLOOD COUNT 4.9 K/mm3 (4.0-10.0)
[2020-09-07 07:11] LABS: POTASSIUM 3.6 mmol/L (3.5-5.1)
[2020-09-07 07:33] LABS: BLOOD UREA NITROGEN 21.6 mg/dL (7-18)
[2020-09-07 07:34] LABS: CREATININE 3.3 mg/dL (0.55-1.3)
[2020-09-07 07:35] LABS: ALBUMIN 1.8 g/dl (3.4-5.0)
[2020-09-07 07:36] LABS: CALCIUM 8.1 mg/dL (8.5-10.1); TOT PROT 6.3 g/dl (6.4-8.2)
[2020-09-07 07:41] LABS: BILIRUBIN,TOTAL 0.5 mg/dL (0.2-1)
[2020-09-07] MEDS: DULoxetine HCL 20 MG CAPSULE.DR PO SCH (09:07)
[2020-09-07] MEDS: metoPROLOL SUCCINATE 25 MG TAB.SR.24H (FP) PO SCH (09:07)
[2020-09-07] MEDS: GABAPENTIN 100 MG CAPSULE PO SCH ×2 (09:08→21:52)
[2020-09-07] MEDS: APIXABAN 2.5 MG TABLET PO SCH ×2 (09:08→21:51)
[2020-09-07] MEDS ORDERED: PORTA CATH FLUSH 10 ML IVPUSH PRN (11:57)
[2020-09-07] MEDS ORDERED: BISACODYL 5 MG TABLET.DR (FP) PO PRN (12:00)
[2020-09-07] MEDS ORDERED: INSULIN (NOVOLOG) ASPART 100 UNITS/ML 10ML VIAL SQ ONE (17:00)
[2020-09-07] MEDS ORDERED: SODIUM CHLORIDE 250 ML IV PRN (17:16)
[2020-09-07] MEDS: AMINO ACIDS/PROTEIN HYDROLYS 30 ML LIQUID.PKT PO SCH (17:28)
[2020-09-07] MEDS ORDERED: PT OWN MED DRAWER 7, Y5N ONE ×2 (17:44→21:38)
[2020-09-07] MEDS ORDERED: PANTOPRAZOLE 40 MG TABLET PO ONE (21:30)
[2020-09-07] MEDS ORDERED: INSULIN (NOVOLOG) ASPART 100 UNITS/ML 10ML VIAL ONE (21:47)
[2020-09-07] MEDS: ZOLPIDEM TARTRATE 5 MG TABLET PO PRN (21:51)
[2020-09-07] MEDS: ASCORBIC ACID 250 MG TABLET (FP) PO SCH (21:51)
[2020-09-08] MEDS ORDERED: PIPERACILLIN/TAZOBACTAM 2.25 GM VIAL IVPB ONE ×3 (01:53→17:49)
[2020-09-08] MEDS ORDERED: DEXTROSE 5%-WATER - 50 ML IVPB ONE ×3 (01:54→17:50)
[2020-09-08] MEDS: PIPERACILLIN/TAZOB 2.25 GM 2.25 GM in DEXTROSE 5%-WATER - 50 ML IVPB SCH ×3 (02:28→17:54)
[2020-09-08] MEDS: AMINO ACIDS/PROTEIN HYDROLYS 30 ML LIQUID.PKT PO SCH ×2 (08:55→17:53)
[2020-09-08] MEDS: DULoxetine HCL 20 MG CAPSULE.DR PO SCH (09:20)
[2020-09-08] MEDS: APIXABAN 2.5 MG TABLET PO SCH (09:21)
[2020-09-08] MEDS: GABAPENTIN 100 MG CAPSULE PO SCH ×2 (09:21→22:13)
[2020-09-08] MEDS: metoPROLOL SUCCINATE 25 MG TAB.SR.24H (FP) PO SCH (09:22)
[2020-09-08] MEDS: ASCORBIC ACID 250 MG TABLET (FP) PO SCH ×2 (09:25→22:12)
[2020-09-08] MEDS: INSULIN SLIDING SCALE (NOVOLOG) 1 VIAL SQ SCH ×4 (11:30→22:18)
[2020-09-08] MEDS ORDERED: EPOETIN ALFA-EPBX 10,000 UNIT/ML VIAL IVPUSH ONE (12:30)
[2020-09-08] MEDS ORDERED: LIDOCAINE HCL 1%, 10 MG/ML (20ML VIAL) ONE (12:44)
[2020-09-08] MEDS ORDERED: HEPARIN NA (PORCINE) 5,000 UNITS/ML 1ML VIAL ONE (12:44)
[2020-09-08 12:45] LABS: HEMATOCRIT 26.1 % (35.4-49); HEMOGLOBIN 8.4 GM/dL (11.7-16.9); MCH 26.6 pg (25.7-33.7); MCHC 32.2 g/dl (32.0-35.9); MEAN CELL VOLUME 82.7 fl (80-96); MEAN PLT VOLUME 8.5 fl (7.5-11.1); PLATELET COUNT 380 K/MM3 (134-434); RBC 3.16 M/mm3 (4.00-5.60); RDW 16.7 % (11.9-15.9); WHITE BLOOD COUNT 6.1 K/mm3 (4.0-10.0)
[2020-09-08 13:03] LABS: POTASSIUM 3.7 mmol/L (3.5-5.1)
[2020-09-08 13:04] LABS: CALCIUM 7.4 mg/dL (8.5-10.1)
[2020-09-08 13:05] LABS: BLOOD UREA NITROGEN 32.9 mg/dL (7-18)
[2020-09-08 13:08] LABS: CREATININE 4.3 mg/dL (0.55-1.3); PHOSPHOROUS 3.5 mg/dL (2.5-4.9)
[2020-09-08] MEDS ORDERED: PROPOFOL 20 ML ONE (14:58)
[2020-09-08] MEDS ORDERED: LIDOCAINE HCL/PF 2% SDV 5ML VIAL ONE (14:58)
[2020-09-08] MEDS ORDERED: LIDOCAINE HCL 1%, 10 MG/ML (20ML VIAL) INF ONE ×2 (15:13)
[2020-09-08] MEDS ORDERED: ONDANSETRON 4 MG/2 ML VIAL IVPUSH PRN ×2 (15:15→21:02)
[2020-09-08] MEDS ORDERED: PROTAMINE SULFATE 50 MG/5 ML VIAL ONE (15:55)
[2020-09-08] MEDS ORDERED: INSULIN (NOVOLOG) ASPART 100 UNITS/ML 10ML VIAL ONE (17:49)
[2020-09-08] MEDS ORDERED: BISACODYL 5 MG TABLET.DR (FP) PO PRN (21:02)
[2020-09-08] MEDS ORDERED: HYDROCORTISONE 1% TOPICAL CREAM 30 GM TUBE TP PRN (21:02)
[2020-09-08] MEDS ORDERED: PORTA CATH FLUSH 10 ML IVPUSH PRN (21:02)
[2020-09-09] MEDS ORDERED: ZOLPIDEM TARTRATE 5 MG TABLET PO ONE (00:45)
[2020-09-09] MEDS ORDERED: PANTOPRAZOLE 40 MG TABLET PO ONE (00:45)
[2020-09-09] MEDS ORDERED: PIPERACILLIN/TAZOBACTAM 2.25 GM VIAL IVPB ONE ×3 (00:46→16:45)
[2020-09-09] MEDS ORDERED: DEXTROSE 5%-WATER - 50 ML IVPB ONE ×3 (00:47→16:45)
[2020-09-09] MEDS: PIPERACILLIN/TAZOB 2.25 GM 2.25 GM in DEXTROSE 5%-WATER - 50 ML IVPB SCH ×3 (01:11→17:00)
[2020-09-09] MEDS: INSULIN SLIDING SCALE (NOVOLOG) 1 VIAL SQ SCH ×4 (06:45→21:48)
[2020-09-09] MEDS ORDERED: PT OWN MED DRAWER 7, Y5N ONE ×3 (09:14→21:37)
[2020-09-09] MEDS: AMINO ACIDS/PROTEIN HYDROLYS 30 ML LIQUID.PKT PO SCH ×2 (09:21→17:01)
[2020-09-09] MEDS: DULoxetine HCL 20 MG CAPSULE.DR PO SCH (09:21)
[2020-09-09] MEDS: metoPROLOL SUCCINATE 25 MG TAB.SR.24H (FP) PO SCH (09:22)
[2020-09-09] MEDS: ASCORBIC ACID 250 MG TABLET (FP) PO SCH ×2 (09:22→21:48)
[2020-09-09] MEDS: GABAPENTIN 100 MG CAPSULE PO SCH ×2 (09:22→21:48)
[2020-09-09] MEDS ORDERED: APIXABAN 2.5 MG TABLET PO SCH (10:00)
[2020-09-09] MEDS ORDERED: INSULIN (NOVOLOG) ASPART 100 UNITS/ML 10ML VIAL ONE ×2 (19:49→21:26)
[2020-09-09] MEDS: ENOXAPARIN NA (PORCINE) 30 MG/0.3 ML DISP.SYRIN SQ SCH (21:48)
[2020-09-09] MEDS ORDERED: ZOLPIDEM TARTRATE 5 MG TABLET PO PRN (22:00)
[2020-09-10] MEDS ORDERED: PIPERACILLIN/TAZOBACTAM 2.25 GM VIAL IVPB ONE ×3 (01:02→17:17)
[2020-09-10] MEDS ORDERED: DEXTROSE 5%-WATER - 50 ML IVPB ONE ×3 (01:03→17:17)
[2020-09-10] MEDS: PIPERACILLIN/TAZOB 2.25 GM 2.25 GM in DEXTROSE 5%-WATER - 50 ML IVPB SCH ×3 (01:48→17:26)
[2020-09-10] MEDS: INSULIN SLIDING SCALE (NOVOLOG) 1 VIAL SQ SCH ×4 (06:01→21:41)
[2020-09-10] MEDS ORDERED: PT OWN MED DRAWER 7, Y5N ONE ×3 (09:43→21:00)
[2020-09-10] MEDS: AMINO ACIDS/PROTEIN HYDROLYS 30 ML LIQUID.PKT PO SCH ×2 (09:56→17:23)
[2020-09-10] MEDS: GABAPENTIN 100 MG CAPSULE PO SCH ×2 (09:57→21:33)
[2020-09-10] MEDS: ASCORBIC ACID 250 MG TABLET (FP) PO SCH ×2 (09:57→21:34)
[2020-09-10] MEDS: ENOXAPARIN NA (PORCINE) 30 MG/0.3 ML DISP.SYRIN SQ SCH ×2 (09:57→21:33)
[2020-09-10] MEDS: DULoxetine HCL 20 MG CAPSULE.DR PO SCH (09:57)
[2020-09-10] MEDS: metoPROLOL SUCCINATE 25 MG TAB.SR.24H (FP) PO SCH (09:58)
[2020-09-10] MEDS ORDERED: SODIUM CHLORIDE 250 ML IV PRN (14:17)
[2020-09-10] MEDS ORDERED: INSULIN (NOVOLOG) ASPART 100 UNITS/ML 10ML VIAL ONE (17:18)
[2020-09-11] MEDS ORDERED: DEXTROSE 5%-WATER - 50 ML IVPB ONE ×3 (01:45→17:02)
[2020-09-11] MEDS ORDERED: PIPERACILLIN/TAZOBACTAM 2.25 GM VIAL IVPB ONE ×3 (01:45→17:01)
[2020-09-11] MEDS: PIPERACILLIN/TAZOB 2.25 GM 2.25 GM in DEXTROSE 5%-WATER - 50 ML IVPB SCH ×3 (01:48→17:31)
[2020-09-11 06:35] LABS: BASO % 0.9 % (0-2.0); EOS % 2.5 % (0-4.5); HEMATOCRIT 28.5 % (35.4-49); LYMPH % 18.1 % (8-40); MCH 25.8 pg (25.7-33.7); MCHC 31.6 g/dl (32.0-35.9); MEAN CELL VOLUME 81.7 fl (80-96); MEAN PLT VOLUME 8.1 fl (7.5-11.1); NEUT % 70.5 % (42.8-82.8); PLATELET COUNT 391 K/MM3 (134-434); RBC 3.49 M/mm3 (4.00-5.60); RDW 16.2 % (11.9-15.9); WHITE BLOOD COUNT 6.8 K/mm3 (4.0-10.0)
[2020-09-11] MEDS: INSULIN SLIDING SCALE (NOVOLOG) 1 VIAL SQ SCH ×3 (07:00→17:32)
[2020-09-11 08:32] LABS: HEMOGLOBIN 9.2 GM/dL (11.7-16.9); MCH 26.5 pg (25.7-33.7); MCHC 31.8 g/dl (32.0-35.9); MEAN CELL VOLUME 83.3 fl (80-96); MEAN PLT VOLUME 7.9 fl (7.5-11.1); PLATELET COUNT 376 K/MM3 (134-434); RBC 3.48 M/mm3 (4.00-5.60); RDW 16.8 % (11.9-15.9); WHITE BLOOD COUNT 7.1 K/mm3 (4.0-10.0)
[2020-09-11 08:56] LABS: POTASSIUM 3.7 mmol/L (3.5-5.1)
[2020-09-11 09:00] LABS: BLOOD UREA NITROGEN 42.2 mg/dL (7-18)
[2020-09-11 09:04] LABS: BILIRUBIN,TOTAL 0.5 mg/dL (0.2-1); TOT PROT 6.2 g/dl (6.4-8.2)
[2020-09-11] MEDS: AMINO ACIDS/PROTEIN HYDROLYS 30 ML LIQUID.PKT PO SCH ×2 (09:44→17:25)
[2020-09-11] MEDS: DULoxetine HCL 20 MG CAPSULE.DR PO SCH (09:47)
[2020-09-11] MEDS: GABAPENTIN 100 MG CAPSULE PO SCH (09:47)
[2020-09-11] MEDS: metoPROLOL SUCCINATE 25 MG TAB.SR.24H (FP) PO SCH (09:48)
[2020-09-11] MEDS: ASCORBIC ACID 250 MG TABLET (FP) PO SCH (09:49)
[2020-09-11] MEDS ORDERED: SUCCINYLCHOLINE CHLORIDE 200 MG/10 ML SYRINGE ONE (14:19)
[2020-09-11] MEDS ORDERED: ROCURONIUM BROMIDE 50 MG/5 ML SYRINGE ONE (14:19)
[2020-09-11] MEDS ORDERED: MIDAZOLAM HCL 2 MG/2 ML SINGLE DOSE VIAL ONE (14:19)
[2020-09-11] MEDS ORDERED: PROPOFOL 20 ML ONE ×2 (14:19)
[2020-09-11] MEDS ORDERED: ONDANSETRON 4 MG/2 ML VIAL IVPUSH PRN (14:56)
[2020-09-11] MEDS: EPOETIN ALFA 10,000 UNIT/1 ML VIAL IVPUSH ONE ×2 (17:35→23:32)
[2020-09-12] MEDS: ENOXAPARIN NA (PORCINE) 30 MG/0.3 ML DISP.SYRIN SQ SCH (00:25)
[2020-09-12] MEDS: INSULIN SLIDING SCALE (NOVOLOG) 1 VIAL SQ SCH ×5 (00:26→21:23)
[2020-09-12] MEDS: GABAPENTIN 100 MG CAPSULE PO SCH ×3 (00:26→21:22)
[2020-09-12] MEDS: ASCORBIC ACID 250 MG TABLET (FP) PO SCH ×3 (00:29→21:22)
[2020-09-12] MEDS ORDERED: DEXTROSE 5%-WATER - 50 ML IVPB ONE ×3 (01:24→16:33)
[2020-09-12] MEDS ORDERED: PIPERACILLIN/TAZOBACTAM 2.25 GM VIAL IVPB ONE ×3 (01:24→16:33)
[2020-09-12] MEDS: PIPERACILLIN/TAZOB 2.25 GM 2.25 GM in DEXTROSE 5%-WATER - 50 ML IVPB SCH ×3 (01:47→17:04)
[2020-09-12] MEDS ORDERED: MIDAZOLAM HCL 2 MG/2 ML SINGLE DOSE VIAL ONE (07:02)
[2020-09-12] MEDS ORDERED: LIDOCAINE HCL/PF 2% SDV 5ML VIAL ONE (07:09)
[2020-09-12] MEDS ORDERED: DEXAMETHASONE SOD PHOSPHATE 4 MG/1 ML VIAL ONE (07:09)
[2020-09-12] MEDS ORDERED: SUCCINYLCHOLINE CHLORIDE 200 MG/10 ML SYRINGE ONE (07:09)
[2020-09-12] MEDS ORDERED: KETOROLAC TROMETHAMINE 30 MG/1 ML VIAL ONE (07:09)
[2020-09-12] MEDS ORDERED: ROCURONIUM BROMIDE 50 MG/5 ML SYRINGE ONE (07:10)
[2020-09-12] MEDS ORDERED: PROPOFOL 20 ML ONE (07:11)
[2020-09-12] MEDS ORDERED: NEOSTIGMINE METHYLSULFATE 0.5 MG/ML - 10 ML MDV ONE (07:13)
[2020-09-12] MEDS ORDERED: BUPIVACAINE HCL/PF 0.5% (5MG/ML) 10 ML VIAL IJ ONE (07:58)
[2020-09-12] MEDS: AMINO ACIDS/PROTEIN HYDROLYS 30 ML LIQUID.PKT PO SCH ×2 (08:00→17:08)
[2020-09-12] MEDS ORDERED: HEPARIN NA (PORCINE) 5,000 UNITS/ML 1ML VIAL SQ ONE (08:22)
[2020-09-12 08:39] LABS: POTASSIUM 3.8 mmol/L (3.5-5.1)
[2020-09-12 08:40] LABS: BASO % 0.7 % (0-2.0); EOS % 1.6 % (0-4.5); HEMATOCRIT 29.3 % (35.4-49); HEMOGLOBIN 9.2 GM/dL (11.7-16.9); LYMPH % 13.4 % (8-40); MCH 26.2 pg (25.7-33.7); MCHC 31.6 g/dl (32.0-35.9); MEAN CELL VOLUME 83.1 fl (80-96); MEAN PLT VOLUME 8.3 fl (7.5-11.1); MONO % 6.9 % (3.8-10.2); NEUT % 77.4 % (42.8-82.8); PLATELET COUNT 384 K/MM3 (134-434); RBC 3.52 M/mm3 (4.00-5.60); RDW 16.7 % (11.9-15.9); WHITE BLOOD COUNT 7.6 K/mm3 (4.0-10.0)
[2020-09-12 08:46] LABS: BLOOD UREA NITROGEN 23.2 mg/dL (7-18); CALCIUM 8.4 mg/dL (8.5-10.1)
[2020-09-12 08:48] LABS: BILIRUBIN,TOTAL 0.4 mg/dL (0.2-1)
[2020-09-12 08:49] LABS: TOT PROT 6.6 g/dl (6.4-8.2)
[2020-09-12 08:51] LABS: CREATININE 4.2 mg/dL (0.55-1.3)
[2020-09-12] MEDS ORDERED: HYDROCORTISONE 1% TOPICAL CREAM 30 GM TUBE TP PRN (09:14)
[2020-09-12] MEDS ORDERED: PORTA CATH FLUSH 10 ML IVPUSH PRN (09:14)
[2020-09-12] MEDS ORDERED: ONDANSETRON 4 MG/2 ML VIAL IVPUSH PRN (09:14)
[2020-09-12] MEDS ORDERED: BISACODYL 5 MG TABLET.DR (FP) PO PRN (09:14)
[2020-09-12] MEDS ORDERED: ENOXAPARIN NA (PORCINE) 30 MG/0.3 ML DISP.SYRIN SQ SCH (10:00)
[2020-09-12] MEDS ORDERED: PT OWN MED DRAWER 7, Y5N ONE (12:36)
[2020-09-12] MEDS: DULoxetine HCL 20 MG CAPSULE.DR PO SCH (12:44)
[2020-09-12] MEDS: metoPROLOL SUCCINATE 25 MG TAB.SR.24H (FP) PO SCH (12:46)
[2020-09-12] MEDS ORDERED: INSULIN (NOVOLOG) ASPART 100 UNITS/ML 10ML VIAL ONE (18:14)
[2020-09-12] MEDS ORDERED: SODIUM CHLORIDE 250 ML IV PRN (18:21)
[2020-09-12] MEDS: APIXABAN 2.5 MG TABLET PO SCH (21:22)
[2020-09-12] MEDS: ZOLPIDEM TARTRATE 5 MG TABLET PO PRN (21:22)
[2020-09-12] MEDS ORDERED: MAG HYDROX/AL HYDROX/SIMETH 30 ML UNIT-DOSE CUP PO ONE (22:15)
[2020-09-13] MEDS ORDERED: DEXTROSE 5%-WATER - 50 ML IVPB ONE ×3 (01:27→17:10)
[2020-09-13] MEDS ORDERED: PIPERACILLIN/TAZOBACTAM 2.25 GM VIAL IVPB ONE ×3 (01:27→17:10)
[2020-09-13] MEDS: PIPERACILLIN/TAZOB 2.25 GM 2.25 GM in DEXTROSE 5%-WATER - 50 ML IVPB SCH ×4 (01:46→17:15)
[2020-09-13] MEDS: INSULIN SLIDING SCALE (NOVOLOG) 1 VIAL SQ SCH ×5 (06:02→21:52)
[2020-09-13] MEDS ORDERED: EPOETIN ALFA 10,000 UNIT/1 ML VIAL IVPUSH ONE (09:00)
[2020-09-13 09:34] LABS: HEMATOCRIT 27.5 % (35.4-49); HEMOGLOBIN 8.6 GM/dL (11.7-16.9); MCH 25.8 pg (25.7-33.7); MCHC 31.1 g/dl (32.0-35.9); MEAN CELL VOLUME 82.8 fl (80-96); MEAN PLT VOLUME 8.1 fl (7.5-11.1); PLATELET COUNT 390 K/MM3 (134-434); RBC 3.32 M/mm3 (4.00-5.60); RDW 16.9 % (11.9-15.9); WHITE BLOOD COUNT 8.2 K/mm3 (4.0-10.0)
[2020-09-13 10:07] LABS: POTASSIUM 3.9 mmol/L (3.5-5.1)
[2020-09-13 10:09] LABS: BLOOD UREA NITROGEN 35.9 mg/dL (7-18); CALCIUM 7.4 mg/dL (8.5-10.1)
[2020-09-13 10:13] LABS: CREATININE 5.7 mg/dL (0.55-1.3)
[2020-09-13] MEDS: AMINO ACIDS/PROTEIN HYDROLYS 30 ML LIQUID.PKT PO SCH ×3 (10:40→17:15)
[2020-09-13] MEDS ORDERED: PT OWN MED DRAWER 7, Y5N ONE ×2 (11:36→21:48)
[2020-09-13] MEDS: ASCORBIC ACID 250 MG TABLET (FP) PO SCH ×2 (11:42→21:50)
[2020-09-13] MEDS: DULoxetine HCL 20 MG CAPSULE.DR PO SCH (11:42)
[2020-09-13] MEDS: metoPROLOL SUCCINATE 25 MG TAB.SR.24H (FP) PO SCH (11:43)
[2020-09-13] MEDS: GABAPENTIN 100 MG CAPSULE PO SCH ×2 (11:43→21:50)
[2020-09-13] MEDS: APIXABAN 2.5 MG TABLET PO SCH ×2 (11:43→21:49)
[2020-09-13] MEDS: PANTOPRAZOLE 40 MG TABLET PO SCH (13:58)
[2020-09-13] MEDS ORDERED: MAG HYDROX/AL HYDROX/SIMETH 30 ML UNIT-DOSE CUP PO ONE (18:00)
[2020-09-13] MEDS: ZOLPIDEM TARTRATE 5 MG TABLET PO PRN (23:33)
[2020-09-14] MEDS ORDERED: PIPERACILLIN/TAZOBACTAM 2.25 GM VIAL IVPB ONE ×2 (02:52→09:01)
[2020-09-14] MEDS ORDERED: DEXTROSE 5%-WATER - 50 ML IVPB ONE ×2 (02:52→09:02)
[2020-09-14] MEDS: PIPERACILLIN/TAZOB 2.25 GM 2.25 GM in DEXTROSE 5%-WATER - 50 ML IVPB SCH ×2 (02:54→09:10)
[2020-09-14] MEDS: INSULIN SLIDING SCALE (NOVOLOG) 1 VIAL SQ SCH ×4 (06:29→22:17)
[2020-09-14] MEDS: metoPROLOL SUCCINATE 25 MG TAB.SR.24H (FP) PO SCH (09:10)
[2020-09-14] MEDS: PANTOPRAZOLE 40 MG TABLET PO SCH (09:10)
[2020-09-14] MEDS: APIXABAN 2.5 MG TABLET PO SCH ×2 (09:13→22:17)
[2020-09-14] MEDS: GABAPENTIN 100 MG CAPSULE PO SCH ×2 (09:20→22:17)
[2020-09-14] MEDS ORDERED: PT OWN MED DRAWER 7, Y5N ONE ×2 (09:22→23:36)
[2020-09-14] MEDS: AMINO ACIDS/PROTEIN HYDROLYS 30 ML LIQUID.PKT PO SCH ×2 (09:24→16:51)
[2020-09-14] MEDS: ASCORBIC ACID 250 MG TABLET (FP) PO SCH ×2 (10:29→22:17)
[2020-09-14] MEDS: DULoxetine HCL 20 MG CAPSULE.DR PO SCH (10:29)
[2020-09-14] MEDS ORDERED: INSULIN (NOVOLOG) ASPART 100 UNITS/ML 10ML VIAL ONE (11:22)
[2020-09-14] MEDS ORDERED: SODIUM CHLORIDE 250 ML IV PRN (13:53)
[2020-09-15] MEDS: INSULIN SLIDING SCALE (NOVOLOG) 1 VIAL SQ SCH ×2 (06:13→11:00)
[2020-09-15] MEDS: AMINO ACIDS/PROTEIN HYDROLYS 30 ML LIQUID.PKT PO SCH (08:01)
[2020-09-15] MEDS ORDERED: EPOETIN ALFA 10,000 UNIT/1 ML VIAL IVPUSH ONE (10:45)
[2020-09-15 10:55] LABS: HEMOGLOBIN 8.8 GM/dL (11.7-16.9); MCH 26.8 pg (25.7-33.7); MCHC 31.4 g/dl (32.0-35.9); MEAN CELL VOLUME 85.3 fl (80-96); MEAN PLT VOLUME 8.4 fl (7.5-11.1); PLATELET COUNT 317 K/MM3 (134-434); RBC 3.29 M/mm3 (4.00-5.60); RDW 17.6 % (11.9-15.9); WHITE BLOOD COUNT 7.5 K/mm3 (4.0-10.0)
[2020-09-15 11:20] LABS: POTASSIUM 3.8 mmol/L (3.5-5.1)
[2020-09-15 11:24] LABS: BLOOD UREA NITROGEN 31.9 mg/dL (7-18); CALCIUM 7.5 mg/dL (8.5-10.1)
[2020-09-15 11:27] LABS: CREATININE 5.1 mg/dL (0.55-1.3)
[2020-09-15 11:28] LABS: PHOSPHOROUS 4.7 mg/dL (2.5-4.9)
[2020-09-15 12:51] VITALS: PULSE 72
[2020-09-15] MEDS: metoPROLOL SUCCINATE 25 MG TAB.SR.24H (FP) PO SCH (13:58)
[2020-09-15] MEDS: PANTOPRAZOLE 40 MG TABLET PO SCH (13:59)
[2020-09-15] MEDS: ASCORBIC ACID 250 MG TABLET (FP) PO SCH (13:59)
[2020-09-15] MEDS: APIXABAN 2.5 MG TABLET PO SCH (14:00)
[2020-09-15] MEDS: GABAPENTIN 100 MG CAPSULE PO SCH (14:00)
[2020-09-15] MEDS: DULoxetine HCL 20 MG CAPSULE.DR PO SCH (14:00)
[2020-09-15 15:35] VITALS: BP 117/51; TEMP 98.1
== END 2020-09-15 17:55 | disposition home or self-care (01) | DRG 252 ==
LOC: JER 11:41 → JERBED 13:58 → J8W 18:41
PROVIDERS: ADMIT Internal Medicine; ATTEND Internal Medicine
PROC: 047S3ZZ Dilation of Left Posterior Tibial Artery, Percutaneous Approach (ICD-10-PCS; 2020-09-08)
PROC: 0QBP0ZZ Excision of Left Metatarsal, Open Approach (ICD-10-PCS; 2020-09-08)
PROC: 0KBW0ZZ Excision of Left Foot Muscle, Open Approach (ICD-10-PCS; 2020-09-08)
PROC: X27 New Technology, Cardiovascular System, Dilation (ICD-10-PCS; principal; 2020-09-08 14:30)
PROC: 0WHG43Z Insertion of Infusion Device into Peritoneal Cavity, Percutaneous Endoscopic Approach (ICD-10-PCS; 2020-09-12)
PROC: 5A1D70Z Performance of Urinary Filtration, Intermittent, Less than 6 Hours Per Day (ICD-10-PCS; 2020-09-15)
DX: E11.51 Type 2 diabetes mellitus with diabetic peripheral angiopathy without gangrene (principal); N18.6 End stage renal disease; L03.115 Cellulitis of right lower limb; M86.9 Osteomyelitis, unspecified; R78.81 Bacteremia; I13.2 Hypertensive heart and chronic kidney disease with heart failure and with stage 5 chronic kidney disease, or end stage renal disease; E11.69 Type 2 diabetes mellitus with other specified complication; E11.22 Type 2 diabetes mellitus with diabetic chronic kidney disease; I50.9 Heart failure, unspecified; Z99.2 Dependence on renal dialysis; I25.10 Atherosclerotic heart disease of native coronary artery without angina pectoris; Z95.1 Presence of aortocoronary bypass graft; E78.5 Hyperlipidemia, unspecified; E11.40 Type 2 diabetes mellitus with diabetic neuropathy, unspecified; E66.9 Obesity, unspecified; Z68.29 Body mass index [BMI] 29.0-29.9, adult; B95.2 Enterococcus as the cause of diseases classified elsewhere
CPT/HCPCS: 36415; 71045-TC-FY; 76000-TC-FY; 80048; 80053; 81003; 82550; 82553; 82803; 82947; 82962; 83605; 84100; 84484; 85025; 85027; 85610; 85730; 86850; 86900; 86901; 87040; 87086; 87186; 88304-TC; 93005; 93010; 94760; 99291; C9803; J0131; J0885; J1644; Q5106; U0003

== ENCOUNTER 2020-09-19 12:14 | Inpatient (IN) | payer OTHER, BC ==
[2020-09-19 14:48] LABS: EPI CELLS 3 /uL (0-25.1); HYALINE CASTS 0 /uL (0-3.1); PH,URINE 5.5 (5.0-8.0); URINE APPEARANCE CLOUDY; URINE BACTERIA 30 /uL (0-1359); URINE BILIRUBIN NEGATIVE (NEGATIVE); URINE COLOR YELLOW; URINE GLUCOSE (UA) TRACE (NEGATIVE); URINE KETONE TRACE (NEGATIVE); URINE LEUK ESTERASE 1+ (NEGATIVE); URINE NITRITE NEGATIVE (NEGATIVE); URINE PROTEIN 3+ (NEGATIVE); URINE RBC 28 /uL (0-23.9); URINE UROBILINOGEN 0.2 mg/dL (0.2-1.0); URINE WBC 1560 /uL (0-25.8)
[2020-09-19 14:54] LABS: BASO % 1.1 % (0-2.0); EOS % 0.5 % (0-4.5); HEMATOCRIT 30.6 % (35.4-49); HEMOGLOBIN 9.7 GM/dL (11.7-16.9); LYMPH % 5.2 % (8-40); MCHC 31.6 g/dl (32.0-35.9); MEAN CELL VOLUME 85.3 fl (80-96); MEAN PLT VOLUME 9.4 fl (7.5-11.1); MONO % 10.1 % (3.8-10.2); NEUT % 83.1 % (42.8-82.8); PLATELET COUNT 286 K/MM3 (134-434); RBC 3.59 M/mm3 (4.00-5.60); RDW 18.6 % (11.9-15.9); WHITE BLOOD COUNT 9.6 K/mm3 (4.0-10.0)
[2020-09-19 15:16] LABS: POTASSIUM 4.1 mmol/L (3.5-5.1)
[2020-09-19 15:18] LABS: CALCIUM 8.4 mg/dL (8.5-10.1)
[2020-09-19 15:19] LABS: ALBUMIN 2.6 g/dl (3.4-5.0); BLOOD UREA NITROGEN 26.3 mg/dL (7-18)
[2020-09-19 15:21] LABS: CREATININE 4.7 mg/dL (0.55-1.3)
[2020-09-19 15:23] LABS: BILIRUBIN,TOTAL 0.4 mg/dL (0.2-1)
[2020-09-19] MEDS ORDERED: CEFTRIAXONE 1,000 MG in DEXTROSE 5%-WATER - 50 ML IVPB ONE (15:38)
[2020-09-19 15:54] LABS: INR 1.22 (0.83-1.09); PROTHROMBIN TIME (PATIENT) 14.7 SEC (9.7-13.0)
[2020-09-19] MEDS ORDERED: CEFTRIAXONE 1 GM/50 ML BAG ONE (16:27)
[2020-09-19] MEDS ORDERED: INSULIN REGULAR HUMAN 100 UNITS/ML *VIAL SQ PRN (18:42)
[2020-09-19] MEDS ORDERED: SODIUM CHLORIDE 250 ML IV PRN (18:43)
[2020-09-20] MEDS: ZOLPIDEM TARTRATE 5 MG TABLET PO PRN ×2 (00:32→21:41)
[2020-09-20] MEDS: ASCORBIC ACID 250 MG TABLET (FP) PO SCH ×3 (00:33→21:41)
[2020-09-20] MEDS: GABAPENTIN 100 MG CAPSULE PO SCH ×3 (00:33→21:41)
[2020-09-20] MEDS: APIXABAN 2.5 MG TABLET PO SCH ×3 (00:33→21:41)
[2020-09-20 00:53] VITALS: BMI 28.5
[2020-09-20] MEDS ORDERED: EPOETIN ALFA-EPBX 10,000 UNIT/ML VIAL IVPUSH ONE (10:00)
[2020-09-20 11:34] LABS: HEMATOCRIT 25.3 % (35.4-49); HEMOGLOBIN 7.9 GM/dL (11.7-16.9); MCH 26.1 pg (25.7-33.7); MCHC 31.1 g/dl (32.0-35.9); MEAN CELL VOLUME 83.9 fl (80-96); PLATELET COUNT 209 K/MM3 (134-434); RBC 3.02 M/mm3 (4.00-5.60); RDW 18.4 % (11.9-15.9); WHITE BLOOD COUNT 3.7 K/mm3 (4.0-10.0)
[2020-09-20 11:46] LABS: BLOOD UREA NITROGEN 35.6 mg/dL (7-18); CALCIUM 7.1 mg/dL (8.5-10.1); POTASSIUM 3.8 mmol/L (3.5-5.1)
[2020-09-20 11:50] LABS: CREATININE 5.2 mg/dL (0.55-1.3); PHOSPHOROUS 4.6 mg/dL (2.5-4.9)
[2020-09-20] MEDS ORDERED: SODIUM CHLORIDE 250 ML IV PRN (12:00)
[2020-09-20] MEDS: PANTOPRAZOLE 40 MG TABLET PO SCH (13:11)
[2020-09-20] MEDS: metoPROLOL SUCCINATE 25 MG TAB.SR.24H (FP) PO SCH (13:11)
[2020-09-20] MEDS: DULoxetine HCL 20 MG CAPSULE.DR PO SCH (13:12)
[2020-09-20] MEDS ORDERED: FAMOTIDINE 20 MG TABLET PO ONE (16:26)
[2020-09-21] MEDS: INSULIN SLIDING SCALE (NOVOLOG) 1 VIAL SQ SCH ×4 (06:15→21:19)
[2020-09-21] MEDS: metoPROLOL SUCCINATE 25 MG TAB.SR.24H (FP) PO SCH (09:54)
[2020-09-21] MEDS: ASCORBIC ACID 250 MG TABLET (FP) PO SCH ×2 (09:54→21:01)
[2020-09-21] MEDS: GABAPENTIN 100 MG CAPSULE PO SCH ×2 (09:54→21:01)
[2020-09-21] MEDS: PANTOPRAZOLE 40 MG TABLET PO SCH (09:54)
[2020-09-21] MEDS: APIXABAN 2.5 MG TABLET PO SCH ×2 (09:54→21:00)
[2020-09-21] MEDS: DULoxetine HCL 20 MG CAPSULE.DR PO SCH (09:54)
[2020-09-21] MEDS: ZOLPIDEM TARTRATE 5 MG TABLET PO PRN (21:03)
[2020-09-22] MEDS ORDERED: SODIUM CHLORIDE 250 ML IV PRN (06:00)
[2020-09-22] MEDS: INSULIN SLIDING SCALE (NOVOLOG) 1 VIAL SQ SCH ×4 (06:44→22:28)
[2020-09-22 07:46] LABS: EOS % 4.1 % (0-4.5); HEMATOCRIT 28.3 % (35.4-49); HEMOGLOBIN 8.8 GM/dL (11.7-16.9); LYMPH % 24.8 % (8-40); MEAN CELL VOLUME 83.9 fl (80-96); MONO % 10.3 % (3.8-10.2); NEUT % 59.8 % (42.8-82.8); PLATELET COUNT 208 K/MM3 (134-434); RBC 3.38 M/mm3 (4.00-5.60); RDW 18.1 % (11.9-15.9); WHITE BLOOD COUNT 3.4 K/mm3 (4.0-10.0)
[2020-09-22 07:54] LABS: POTASSIUM 3.4 mmol/L (3.5-5.1)
[2020-09-22 08:00] LABS: BLOOD UREA NITROGEN 32.8 mg/dL (7-18); CALCIUM 7.3 mg/dL (8.5-10.1); MAGNESIUM 1.8 mg/dL (1.8-2.4)
[2020-09-22 08:02] LABS: CREATININE 4.8 mg/dL (0.55-1.3)
[2020-09-22 08:03] LABS: PHOSPHOROUS 4.7 mg/dL (2.5-4.9)
[2020-09-22 08:05] LABS: BILIRUBIN,TOTAL 0.2 mg/dL (0.2-1); TOT PROT 5.7 g/dl (6.4-8.2)
[2020-09-22] MEDS: GABAPENTIN 100 MG CAPSULE PO SCH ×2 (09:17→22:28)
[2020-09-22] MEDS: metoPROLOL SUCCINATE 25 MG TAB.SR.24H (FP) PO SCH (09:17)
[2020-09-22] MEDS: DULoxetine HCL 20 MG CAPSULE.DR PO SCH (09:17)
[2020-09-22] MEDS: APIXABAN 2.5 MG TABLET PO SCH ×2 (09:17→22:28)
[2020-09-22] MEDS: PANTOPRAZOLE 40 MG TABLET PO SCH (09:18)
[2020-09-22] MEDS: ASCORBIC ACID 250 MG TABLET (FP) PO SCH ×2 (09:18→22:28)
[2020-09-22] MEDS ORDERED: EPOETIN ALFA 20,000 UNIT/1 ML VIAL IVPUSH ONE (09:30)
[2020-09-22] MEDS ORDERED: EPOETIN ALFA-EPBX 10,000 UNIT/ML VIAL IVPUSH ONE (09:45)
[2020-09-22] MEDS: DEXAMETHASONE SOD PHOSPHATE 4 MG/1 ML VIAL IVPUSH SCH ×2 (14:52→17:45)
[2020-09-22] MEDS: ACETAMINOPHEN 325 MG TABLET (FP) PO PRN (15:55)
[2020-09-22] MEDS ORDERED: INSULIN (NOVOLOG) ASPART 100 UNITS/ML 10ML VIAL ONE ×2 (21:14→22:15)
[2020-09-23] MEDS: DEXAMETHASONE SOD PHOSPHATE 4 MG/1 ML VIAL IVPUSH SCH ×4 (03:16→19:11)
[2020-09-23 07:20] LABS: POTASSIUM 3.8 mmol/L (3.5-5.1)
[2020-09-23 07:24] LABS: BLOOD UREA NITROGEN 21.6 mg/dL (7-18); CALCIUM 7.5 mg/dL (8.5-10.1)
[2020-09-23 07:28] LABS: CREATININE 3.6 mg/dL (0.55-1.3)
[2020-09-23] MEDS: INSULIN SLIDING SCALE (NOVOLOG) 1 VIAL SQ SCH ×4 (07:48→21:41)
[2020-09-23] MEDS: GABAPENTIN 100 MG CAPSULE PO SCH ×3 (08:41→21:40)
[2020-09-23] MEDS: APIXABAN 2.5 MG TABLET PO SCH ×3 (08:41→21:39)
[2020-09-23] MEDS: DULoxetine HCL 20 MG CAPSULE.DR PO SCH ×2 (08:41→15:18)
[2020-09-23] MEDS: PANTOPRAZOLE 40 MG TABLET PO SCH ×2 (08:41→15:19)
[2020-09-23] MEDS: metoPROLOL SUCCINATE 25 MG TAB.SR.24H (FP) PO SCH ×2 (08:41→15:19)
[2020-09-23] MEDS: ASCORBIC ACID 250 MG TABLET (FP) PO SCH ×3 (08:42→21:40)
[2020-09-23] MEDS: ZOLPIDEM TARTRATE 5 MG TABLET PO PRN (21:40)
[2020-09-24] MEDS: DEXAMETHASONE SOD PHOSPHATE 4 MG/1 ML VIAL IVPUSH SCH ×4 (01:30→22:57)
[2020-09-24] MEDS: INSULIN SLIDING SCALE (NOVOLOG) 1 VIAL SQ SCH ×4 (06:45→22:39)
[2020-09-24 07:22] LABS: BASO % 0.1 % (0-2.0); HEMATOCRIT 32.7 % (35.4-49); HEMOGLOBIN 10.2 GM/dL (11.7-16.9); LYMPH % 11.1 % (8-40); MCH 25.9 pg (25.7-33.7); MCHC 31.3 g/dl (32.0-35.9); MEAN CELL VOLUME 82.8 fl (80-96); NEUT % 80.8 % (42.8-82.8); PLATELET COUNT 213 K/MM3 (134-434); RBC 3.95 M/mm3 (4.00-5.60); RDW 17.8 % (11.9-15.9); WHITE BLOOD COUNT 3.7 K/mm3 (4.0-10.0)
[2020-09-24 07:46] LABS: POTASSIUM 4.2 mmol/L (3.5-5.1)
[2020-09-24 07:50] LABS: ALBUMIN 2.2 g/dl (3.4-5.0); BLOOD UREA NITROGEN 35.6 mg/dL (7-18); CALCIUM 7.4 mg/dL (8.5-10.1)
[2020-09-24 07:53] LABS: CREATININE 4.6 mg/dL (0.55-1.3)
[2020-09-24 07:54] LABS: TOT PROT 6.4 g/dl (6.4-8.2)
[2020-09-24] MEDS: ASCORBIC ACID 250 MG TABLET (FP) PO SCH ×2 (10:41→22:39)
[2020-09-24] MEDS: metoPROLOL SUCCINATE 25 MG TAB.SR.24H (FP) PO SCH (10:41)
[2020-09-24] MEDS: PANTOPRAZOLE 40 MG TABLET PO SCH (10:42)
[2020-09-24] MEDS: GABAPENTIN 100 MG CAPSULE PO SCH ×2 (10:42→22:39)
[2020-09-24] MEDS: APIXABAN 2.5 MG TABLET PO SCH ×2 (10:42→22:39)
[2020-09-24] MEDS: DULoxetine HCL 20 MG CAPSULE.DR PO SCH (10:42)
[2020-09-25] MEDS ORDERED: ZOLPIDEM TARTRATE 5 MG TABLET PO ONE (00:30)
[2020-09-25] MEDS: INSULIN SLIDING SCALE (NOVOLOG) 1 VIAL SQ SCH ×4 (06:39→21:37)
[2020-09-25 07:33] LABS: BASO % 0.3 % (0-2.0); HEMATOCRIT 31.2 % (35.4-49); HEMOGLOBIN 9.7 GM/dL (11.7-16.9); LYMPH % 5.9 % (8-40); MCH 25.6 pg (25.7-33.7); MCHC 30.9 g/dl (32.0-35.9); MEAN CELL VOLUME 82.8 fl (80-96); MEAN PLT VOLUME 9.1 fl (7.5-11.1); MONO % 5.6 % (3.8-10.2); NEUT % 88.2 % (42.8-82.8); PLATELET COUNT 231 K/MM3 (134-434); RBC 3.77 M/mm3 (4.00-5.60); RDW 17.3 % (11.9-15.9); WHITE BLOOD COUNT 5.8 K/mm3 (4.0-10.0)
[2020-09-25 07:59] LABS: ALBUMIN 2.1 g/dl (3.4-5.0); BLOOD UREA NITROGEN 51.9 mg/dL (7-18)
[2020-09-25 08:02] LABS: CREATININE 4.9 mg/dL (0.55-1.3); POTASSIUM 3.9 mmol/L (3.5-5.1)
[2020-09-25 08:04] LABS: BILIRUBIN,TOTAL 0.4 mg/dL (0.2-1)
[2020-09-25] MEDS: metoPROLOL SUCCINATE 25 MG TAB.SR.24H (FP) PO SCH (10:00)
[2020-09-25] MEDS: DULoxetine HCL 20 MG CAPSULE.DR PO SCH (10:00)
[2020-09-25] MEDS: PANTOPRAZOLE 40 MG TABLET PO SCH (10:01)
[2020-09-25] MEDS: ASCORBIC ACID 250 MG TABLET (FP) PO SCH ×2 (10:01→21:34)
[2020-09-25] MEDS: GABAPENTIN 100 MG CAPSULE PO SCH ×2 (10:01→21:34)
[2020-09-25] MEDS: DEXAMETHASONE SOD PHOSPHATE 4 MG/1 ML VIAL IVPUSH SCH ×2 (10:01→21:34)
[2020-09-25] MEDS: APIXABAN 2.5 MG TABLET PO SCH ×2 (10:01→21:34)
[2020-09-25] MEDS ORDERED: SODIUM CHLORIDE 250 ML IV PRN (13:06)
[2020-09-25] MEDS: TORSEMIDE 20 MG TABLET (FP) PO SCH (14:03)
[2020-09-25] MEDS: AMINO ACIDS/PROTEIN HYDROLYS 30 ML LIQUID.PKT PO SCH (21:34)
[2020-09-25] MEDS: ZOLPIDEM TARTRATE 5 MG TABLET PO PRN (22:22)
[2020-09-26] MEDS: INSULIN SLIDING SCALE (NOVOLOG) 1 VIAL SQ SCH ×4 (06:21→22:17)
[2020-09-26] MEDS ORDERED: EPOETIN ALFA 10,000 UNIT/1 ML VIAL IVPUSH ONE (09:30)
[2020-09-26 09:43] LABS: HEMATOCRIT 29.4 % (35.4-49); HEMOGLOBIN 9.5 GM/dL (11.7-16.9); MCH 26.9 pg (25.7-33.7); MCHC 32.3 g/dl (32.0-35.9); MEAN CELL VOLUME 83.3 fl (80-96); MEAN PLT VOLUME 9.2 fl (7.5-11.1); PLATELET COUNT 210 K/MM3 (134-434); RBC 3.53 M/mm3 (4.00-5.60); RDW 17.7 % (11.9-15.9); WHITE BLOOD COUNT 3.9 K/mm3 (4.0-10.0)
[2020-09-26 10:02] LABS: POTASSIUM 3.9 mmol/L (3.5-5.1)
[2020-09-26 10:06] LABS: BLOOD UREA NITROGEN 66.1 mg/dL (7-18)
[2020-09-26 10:09] LABS: CREATININE 5.2 mg/dL (0.55-1.3)
[2020-09-26 10:10] LABS: PHOSPHOROUS 4.8 mg/dL (2.5-4.9)
[2020-09-26 10:25] LABS: CALCIUM 6.8 mg/dL (8.5-10.1)
[2020-09-26] MEDS: AMINO ACIDS/PROTEIN HYDROLYS 30 ML LIQUID.PKT PO SCH ×2 (10:39→17:18)
[2020-09-26] MEDS: PANTOPRAZOLE 40 MG TABLET PO SCH (12:24)
[2020-09-26] MEDS: DULoxetine HCL 20 MG CAPSULE.DR PO SCH (12:24)
[2020-09-26] MEDS: metoPROLOL SUCCINATE 25 MG TAB.SR.24H (FP) PO SCH (12:25)
[2020-09-26] MEDS: ASCORBIC ACID 250 MG TABLET (FP) PO SCH ×2 (12:25→22:16)
[2020-09-26] MEDS: APIXABAN 2.5 MG TABLET PO SCH ×2 (12:25→22:17)
[2020-09-26] MEDS: GABAPENTIN 100 MG CAPSULE PO SCH ×2 (12:25→22:17)
[2020-09-26] MEDS: DEXAMETHASONE SOD PHOSPHATE 4 MG/1 ML VIAL IVPUSH SCH ×2 (12:26→22:16)
[2020-09-26] MEDS: TORSEMIDE 20 MG TABLET (FP) PO SCH (12:37)
[2020-09-26] MEDS: ACETAMINOPHEN 325 MG TABLET (FP) PO PRN (12:37)
[2020-09-26] MEDS ORDERED: INSULIN (NOVOLOG) ASPART 100 UNITS/ML 10ML VIAL ONE (17:16)
[2020-09-26] MEDS: ZOLPIDEM TARTRATE 5 MG TABLET PO PRN (22:16)
[2020-09-27] MEDS: INSULIN SLIDING SCALE (NOVOLOG) 1 VIAL SQ SCH ×4 (07:06→23:06)
[2020-09-27 07:38] LABS: POTASSIUM 4.2 mmol/L (3.5-5.1)
[2020-09-27 07:44] LABS: CALCIUM 7.2 mg/dL (8.5-10.1)
[2020-09-27 07:45] LABS: BLOOD UREA NITROGEN 45.7 mg/dL (7-18)
[2020-09-27 07:48] LABS: CREATININE 3.8 mg/dL (0.55-1.3)
[2020-09-27] MEDS: DULoxetine HCL 20 MG CAPSULE.DR PO SCH (10:02)
[2020-09-27] MEDS: TORSEMIDE 20 MG TABLET (FP) PO SCH (10:02)
[2020-09-27] MEDS: GABAPENTIN 100 MG CAPSULE PO SCH ×2 (10:02→23:06)
[2020-09-27] MEDS: DEXAMETHASONE SOD PHOSPHATE 4 MG/1 ML VIAL IVPUSH SCH ×2 (10:02→23:06)
[2020-09-27] MEDS: APIXABAN 2.5 MG TABLET PO SCH ×2 (10:02→23:06)
[2020-09-27] MEDS: PANTOPRAZOLE 40 MG TABLET PO SCH (10:02)
[2020-09-27] MEDS: AMINO ACIDS/PROTEIN HYDROLYS 30 ML LIQUID.PKT PO SCH ×2 (10:03→17:09)
[2020-09-27] MEDS: ASCORBIC ACID 250 MG TABLET (FP) PO SCH ×2 (10:03→23:07)
[2020-09-27] MEDS: metoPROLOL SUCCINATE 25 MG TAB.SR.24H (FP) PO SCH (10:03)
[2020-09-27] MEDS: ZOLPIDEM TARTRATE 5 MG TABLET PO PRN (23:08)
[2020-09-28] MEDS: INSULIN SLIDING SCALE (NOVOLOG) 1 VIAL SQ SCH ×4 (06:51→21:33)
[2020-09-28 07:31] LABS: POTASSIUM 4.5 mmol/L (3.5-5.1)
[2020-09-28 07:36] LABS: BLOOD UREA NITROGEN 59.5 mg/dL (7-18); CALCIUM 7.5 mg/dL (8.5-10.1)
[2020-09-28 07:39] LABS: CREATININE 4.5 mg/dL (0.55-1.3)
[2020-09-28] MEDS ORDERED: PT OWN MED DRAWER 7, Y5N ONE (09:25)
[2020-09-28] MEDS: DEXAMETHASONE SOD PHOSPHATE 4 MG/1 ML VIAL IVPUSH SCH ×2 (09:29→21:23)
[2020-09-28] MEDS: GABAPENTIN 100 MG CAPSULE PO SCH ×2 (09:29→21:24)
[2020-09-28] MEDS: TORSEMIDE 20 MG TABLET (FP) PO SCH (09:29)
[2020-09-28] MEDS: ASCORBIC ACID 250 MG TABLET (FP) PO SCH ×2 (09:29→21:24)
[2020-09-28] MEDS: metoPROLOL SUCCINATE 25 MG TAB.SR.24H (FP) PO SCH (09:29)
[2020-09-28] MEDS: PANTOPRAZOLE 40 MG TABLET PO SCH (09:29)
[2020-09-28] MEDS: DULoxetine HCL 20 MG CAPSULE.DR PO SCH (09:29)
[2020-09-28] MEDS: APIXABAN 2.5 MG TABLET PO SCH ×2 (09:29→21:23)
[2020-09-28] MEDS: AMINO ACIDS/PROTEIN HYDROLYS 30 ML LIQUID.PKT PO SCH ×3 (09:29→17:14)
[2020-09-28] MEDS ORDERED: SODIUM CHLORIDE 250 ML IV PRN (09:59)
[2020-09-28] MEDS: ZOLPIDEM TARTRATE 5 MG TABLET PO PRN (21:24)
[2020-09-29] MEDS: INSULIN SLIDING SCALE (NOVOLOG) 1 VIAL SQ SCH ×4 (06:21→23:15)
[2020-09-29] MEDS: AMINO ACIDS/PROTEIN HYDROLYS 30 ML LIQUID.PKT PO SCH ×2 (09:17→17:15)
[2020-09-29] MEDS: DEXAMETHASONE SOD PHOSPHATE 4 MG/1 ML VIAL IVPUSH SCH ×2 (09:19→23:01)
[2020-09-29] MEDS: DULoxetine HCL 20 MG CAPSULE.DR PO SCH (09:19)
[2020-09-29] MEDS: GABAPENTIN 100 MG CAPSULE PO SCH ×2 (09:20→23:01)
[2020-09-29] MEDS: PANTOPRAZOLE 40 MG TABLET PO SCH (09:20)
[2020-09-29] MEDS: APIXABAN 2.5 MG TABLET PO SCH ×2 (09:20→23:01)
[2020-09-29] MEDS: TORSEMIDE 20 MG TABLET (FP) PO SCH (09:20)
[2020-09-29] MEDS: metoPROLOL SUCCINATE 25 MG TAB.SR.24H (FP) PO SCH (09:21)
[2020-09-29] MEDS: ASCORBIC ACID 250 MG TABLET (FP) PO SCH ×2 (09:21→23:15)
[2020-09-29] MEDS ORDERED: EPOETIN ALFA 20,000 UNIT/1 ML VIAL IVPUSH ONE (13:00)
[2020-09-29 14:34] LABS: HEMATOCRIT 31.3 % (35.4-49); HEMOGLOBIN 9.6 GM/dL (11.7-16.9); MCH 25.3 pg (25.7-33.7); MCHC 30.7 g/dl (32.0-35.9); MEAN CELL VOLUME 82.3 fl (80-96); MEAN PLT VOLUME 8.9 fl (7.5-11.1); PLATELET COUNT 220 K/MM3 (134-434); RBC 3.81 M/mm3 (4.00-5.60); RDW 17.9 % (11.9-15.9); WHITE BLOOD COUNT 4.8 K/mm3 (4.0-10.0)
[2020-09-29 15:00] LABS: POTASSIUM 4.1 mmol/L (3.5-5.1)
[2020-09-29 15:01] LABS: CALCIUM 7.2 mg/dL (8.5-10.1)
[2020-09-29 15:02] LABS: BLOOD UREA NITROGEN 76.9 mg/dL (7-18)
[2020-09-29] MEDS ORDERED: ZOLPIDEM TARTRATE 5 MG TABLET PO ONE (23:00)
[2020-09-30] MEDS: INSULIN SLIDING SCALE (NOVOLOG) 1 VIAL SQ SCH ×4 (07:17→22:06)
[2020-09-30] MEDS: AMINO ACIDS/PROTEIN HYDROLYS 30 ML LIQUID.PKT PO SCH ×2 (08:20→17:08)
[2020-09-30] MEDS: ASCORBIC ACID 250 MG TABLET (FP) PO SCH ×2 (10:02→22:10)
[2020-09-30] MEDS: DEXAMETHASONE SOD PHOSPHATE 4 MG/1 ML VIAL IVPUSH SCH ×2 (10:02→22:10)
[2020-09-30] MEDS: TORSEMIDE 20 MG TABLET (FP) PO SCH (10:03)
[2020-09-30] MEDS: PANTOPRAZOLE 40 MG TABLET PO SCH (10:03)
[2020-09-30] MEDS: metoPROLOL SUCCINATE 25 MG TAB.SR.24H (FP) PO SCH (10:03)
[2020-09-30] MEDS: APIXABAN 2.5 MG TABLET PO SCH ×2 (10:03→22:10)
[2020-09-30] MEDS: GABAPENTIN 100 MG CAPSULE PO SCH ×2 (10:04→22:10)
[2020-09-30] MEDS: DULoxetine HCL 20 MG CAPSULE.DR PO SCH (10:04)
[2020-09-30] MEDS: SENNOSIDES 8.6MG TABLET (FP) PO PRN (22:26)
[2020-09-30] MEDS: ZOLPIDEM TARTRATE 5 MG TABLET PO PRN (22:26)
[2020-10-01] MEDS: INSULIN SLIDING SCALE (NOVOLOG) 1 VIAL SQ SCH ×4 (06:00→23:00)
[2020-10-01 07:04] LABS: BASO % 0.3 % (0-2.0); HEMOGLOBIN 9.9 GM/dL (11.7-16.9); LYMPH % 6.6 % (8-40); MCH 25.7 pg (25.7-33.7); MCHC 30.9 g/dl (32.0-35.9); MEAN CELL VOLUME 83.1 fl (80-96); MEAN PLT VOLUME 9.2 fl (7.5-11.1); NEUT % 87.1 % (42.8-82.8); PLATELET COUNT 228 K/MM3 (134-434); RBC 3.85 M/mm3 (4.00-5.60); RDW 17.6 % (11.9-15.9); WHITE BLOOD COUNT 4.7 K/mm3 (4.0-10.0)
[2020-10-01 07:34] LABS: POTASSIUM 4.3 mmol/L (3.5-5.1)
[2020-10-01 07:41] LABS: ALBUMIN 1.8 g/dl (3.4-5.0); BLOOD UREA NITROGEN 54.1 mg/dL (7-18); CALCIUM 7.2 mg/dL (8.5-10.1)
[2020-10-01 07:44] LABS: BILIRUBIN,TOTAL 0.4 mg/dL (0.2-1); CREATININE 3.7 mg/dL (0.55-1.3); TOT PROT 5.8 g/dl (6.4-8.2)
[2020-10-01] MEDS: AMINO ACIDS/PROTEIN HYDROLYS 30 ML LIQUID.PKT PO SCH ×2 (09:21→16:42)
[2020-10-01] MEDS: DEXAMETHASONE SOD PHOSPHATE 4 MG/1 ML VIAL IVPUSH SCH ×2 (09:22→22:49)
[2020-10-01] MEDS: APIXABAN 2.5 MG TABLET PO SCH ×2 (09:22→22:49)
[2020-10-01] MEDS: ASCORBIC ACID 250 MG TABLET (FP) PO SCH ×2 (09:22→22:49)
[2020-10-01] MEDS: TORSEMIDE 20 MG TABLET (FP) PO SCH (09:22)
[2020-10-01] MEDS: GABAPENTIN 100 MG CAPSULE PO SCH ×2 (09:22→22:49)
[2020-10-01] MEDS: DULoxetine HCL 20 MG CAPSULE.DR PO SCH (09:22)
[2020-10-01] MEDS: PANTOPRAZOLE 40 MG TABLET PO SCH (09:22)
[2020-10-01] MEDS: metoPROLOL SUCCINATE 25 MG TAB.SR.24H (FP) PO SCH (09:22)
[2020-10-01] MEDS ORDERED: INSULIN (NOVOLOG) ASPART 100 UNITS/ML 10ML VIAL SQ ONE (12:00)
[2020-10-01] MEDS: ZOLPIDEM TARTRATE 5 MG TABLET PO PRN (22:49)
[2020-10-01] MEDS: SENNOSIDES 8.6MG TABLET (FP) PO PRN (22:49)
[2020-10-02] MEDS: INSULIN SLIDING SCALE (NOVOLOG) 1 VIAL SQ SCH ×4 (06:13→22:20)
[2020-10-02] MEDS: AMINO ACIDS/PROTEIN HYDROLYS 30 ML LIQUID.PKT PO SCH ×2 (08:07→16:50)
[2020-10-02 09:21] LABS: HEMATOCRIT 32.2 % (35.4-49); HEMOGLOBIN 9.9 GM/dL (11.7-16.9); MCH 25.4 pg (25.7-33.7); MCHC 30.7 g/dl (32.0-35.9); MEAN CELL VOLUME 82.7 fl (80-96); MEAN PLT VOLUME 9.3 fl (7.5-11.1); PLATELET COUNT 259 K/MM3 (134-434); RBC 3.89 M/mm3 (4.00-5.60); RDW 17.5 % (11.9-15.9); WHITE BLOOD COUNT 6.9 K/mm3 (4.0-10.0)
[2020-10-02] MEDS: ASCORBIC ACID 250 MG TABLET (FP) PO SCH ×2 (10:00→22:19)
[2020-10-02] MEDS: APIXABAN 2.5 MG TABLET PO SCH ×2 (10:00→22:19)
[2020-10-02] MEDS: metoPROLOL SUCCINATE 25 MG TAB.SR.24H (FP) PO SCH (10:00)
[2020-10-02] MEDS: GABAPENTIN 100 MG CAPSULE PO SCH ×2 (10:00→22:19)
[2020-10-02] MEDS: PANTOPRAZOLE 40 MG TABLET PO SCH (10:01)
[2020-10-02] MEDS: DULoxetine HCL 20 MG CAPSULE.DR PO SCH (10:01)
[2020-10-02] MEDS: TORSEMIDE 20 MG TABLET (FP) PO SCH (10:01)
[2020-10-02] MEDS: DEXAMETHASONE SOD PHOSPHATE 4 MG/1 ML VIAL IVPUSH SCH ×2 (10:01→22:19)
[2020-10-02] MEDS ORDERED: SODIUM CHLORIDE 250 ML IV PRN (10:44)
[2020-10-02] MEDS ORDERED: PARICALCITOL 5 MCG/ML VIAL IVPUSH ONE (11:30)
[2020-10-02] MEDS ORDERED: EPOETIN ALFA 20,000 UNIT/1 ML VIAL SQ ONE (11:30)
[2020-10-02 13:08] LABS: POTASSIUM 4.5 mmol/L (3.5-5.1)
[2020-10-02 13:10] LABS: BLOOD UREA NITROGEN 68.8 mg/dL (7-18); CALCIUM 7.5 mg/dL (8.5-10.1)
[2020-10-02 13:14] LABS: CREATININE 4.1 mg/dL (0.55-1.3); PHOSPHOROUS 4.4 mg/dL (2.5-4.9)
[2020-10-02] MEDS: INSULIN (LEVEMIR) 100 UNITS/ML UNITS SQ SCH ×2 (15:24→23:40)
[2020-10-02] MEDS: ZOLPIDEM TARTRATE 5 MG TABLET PO PRN (22:22)
[2020-10-03] MEDS: INSULIN (LEVEMIR) 100 UNITS/ML UNITS SQ SCH ×2 (06:30→22:22)
[2020-10-03] MEDS: INSULIN SLIDING SCALE (NOVOLOG) 1 VIAL SQ SCH ×4 (06:31→22:24)
[2020-10-03] MEDS: INSULIN (NOVOLOG MIX 70/30) 100 UNITS/ML MDV SQ SCH ×2 (06:31→16:07)
[2020-10-03 08:38] LABS: BASO % 0.2 % (0-2.0); EOS % 0.6 % (0-4.5); HEMATOCRIT 30.6 % (35.4-49); HEMOGLOBIN 9.7 GM/dL (11.7-16.9); LYMPH % 10.1 % (8-40); MCH 26.4 pg (25.7-33.7); MCHC 31.8 g/dl (32.0-35.9); MEAN CELL VOLUME 82.9 fl (80-96); MEAN PLT VOLUME 9.1 fl (7.5-11.1); MONO % 6.9 % (3.8-10.2); NEUT % 82.2 % (42.8-82.8); PLATELET COUNT 265 K/MM3 (134-434); RBC 3.69 M/mm3 (4.00-5.60); RDW 17.5 % (11.9-15.9); WHITE BLOOD COUNT 6.4 K/mm3 (4.0-10.0)
[2020-10-03 08:52] LABS: POTASSIUM 3.5 mmol/L (3.5-5.1)
[2020-10-03 09:04] LABS: ALBUMIN 1.7 g/dl (3.4-5.0); CALCIUM 7.1 mg/dL (8.5-10.1)
[2020-10-03 09:09] LABS: BILIRUBIN,TOTAL 0.4 mg/dL (0.2-1); TOT PROT 5.5 g/dl (6.4-8.2)
[2020-10-03 09:22] LABS: BLOOD UREA NITROGEN 41.5 mg/dL (7-18)
[2020-10-03] MEDS: AMINO ACIDS/PROTEIN HYDROLYS 30 ML LIQUID.PKT PO SCH ×2 (09:36→16:35)
[2020-10-03] MEDS: DEXAMETHASONE SOD PHOSPHATE 4 MG/1 ML VIAL IVPUSH SCH ×2 (09:37→22:22)
[2020-10-03] MEDS: metoPROLOL SUCCINATE 25 MG TAB.SR.24H (FP) PO SCH (09:38)
[2020-10-03] MEDS: TORSEMIDE 20 MG TABLET (FP) PO SCH (09:38)
[2020-10-03] MEDS: PANTOPRAZOLE 40 MG TABLET PO SCH (09:38)
[2020-10-03] MEDS: APIXABAN 2.5 MG TABLET PO SCH ×2 (09:38→22:22)
[2020-10-03] MEDS: DULoxetine HCL 20 MG CAPSULE.DR PO SCH (09:38)
[2020-10-03] MEDS: GABAPENTIN 100 MG CAPSULE PO SCH ×2 (09:38→22:22)
[2020-10-03] MEDS: ASCORBIC ACID 250 MG TABLET (FP) PO SCH ×2 (09:39→22:22)
[2020-10-03] MEDS ORDERED: INSULIN (NOVOLOG) ASPART 100 UNITS/ML 10ML VIAL ONE (11:04)
[2020-10-03] MEDS: ZOLPIDEM TARTRATE 5 MG TABLET PO PRN (23:06)
[2020-10-04] MEDS: INSULIN (NOVOLOG MIX 70/30) 100 UNITS/ML MDV SQ SCH ×2 (06:45→17:26)
[2020-10-04] MEDS: INSULIN (LEVEMIR) 100 UNITS/ML UNITS SQ SCH ×2 (06:46→21:38)
[2020-10-04] MEDS: INSULIN SLIDING SCALE (NOVOLOG) 1 VIAL SQ SCH ×4 (06:47→21:37)
[2020-10-04] MEDS: AMINO ACIDS/PROTEIN HYDROLYS 30 ML LIQUID.PKT PO SCH ×2 (08:24→17:44)
[2020-10-04 08:46] LABS: POTASSIUM 4.3 mmol/L (3.5-5.1)
[2020-10-04] MEDS: DEXAMETHASONE SOD PHOSPHATE 4 MG/1 ML VIAL IVPUSH SCH ×2 (09:00→21:22)
[2020-10-04] MEDS: metoPROLOL SUCCINATE 25 MG TAB.SR.24H (FP) PO SCH (09:00)
[2020-10-04] MEDS: ASCORBIC ACID 250 MG TABLET (FP) PO SCH ×2 (09:01→21:22)
[2020-10-04] MEDS: GABAPENTIN 100 MG CAPSULE PO SCH ×2 (09:01→21:23)
[2020-10-04] MEDS: APIXABAN 2.5 MG TABLET PO SCH ×2 (09:01→21:22)
[2020-10-04] MEDS: DULoxetine HCL 20 MG CAPSULE.DR PO SCH (09:01)
[2020-10-04] MEDS: TORSEMIDE 20 MG TABLET (FP) PO SCH (09:01)
[2020-10-04 09:02] LABS: CALCIUM 7.5 mg/dL (8.5-10.1)
[2020-10-04] MEDS: PANTOPRAZOLE 40 MG TABLET PO SCH (09:02)
[2020-10-04] MEDS: ACETAMINOPHEN 325 MG TABLET (FP) PO PRN (09:02)
[2020-10-04 09:03] LABS: BLOOD UREA NITROGEN 53.2 mg/dL (7-18)
[2020-10-04 09:06] LABS: CREATININE 3.5 mg/dL (0.55-1.3)
[2020-10-04] MEDS: ZOLPIDEM TARTRATE 5 MG TABLET PO PRN (21:23)
[2020-10-05 03:34] VITALS: BP 141/64; PULSE 84; TEMP 97.5
[2020-10-05] MEDS: INSULIN (LEVEMIR) 100 UNITS/ML UNITS SQ SCH (07:07)
[2020-10-05] MEDS: INSULIN (NOVOLOG MIX 70/30) 100 UNITS/ML MDV SQ SCH (07:07)
[2020-10-05] MEDS: INSULIN SLIDING SCALE (NOVOLOG) 1 VIAL SQ SCH (07:07)
[2020-10-05 07:54] LABS: POTASSIUM 4.3 mmol/L (3.5-5.1)
[2020-10-05 08:04] LABS: BLOOD UREA NITROGEN 69.5 mg/dL (7-18); CALCIUM 7.3 mg/dL (8.5-10.1)
[2020-10-05 08:08] LABS: CREATININE 3.9 mg/dL (0.55-1.3)
[2020-10-05] MEDS: GABAPENTIN 100 MG CAPSULE PO SCH (09:46)
[2020-10-05] MEDS: TORSEMIDE 20 MG TABLET (FP) PO SCH (09:46)
[2020-10-05] MEDS: APIXABAN 2.5 MG TABLET PO SCH (09:46)
[2020-10-05] MEDS: DULoxetine HCL 20 MG CAPSULE.DR PO SCH (09:46)
[2020-10-05] MEDS: PANTOPRAZOLE 40 MG TABLET PO SCH (09:46)
[2020-10-05] MEDS: metoPROLOL SUCCINATE 25 MG TAB.SR.24H (FP) PO SCH (09:46)
[2020-10-05] MEDS: ASCORBIC ACID 250 MG TABLET (FP) PO SCH (09:46)
[2020-10-05] MEDS: DEXAMETHASONE SOD PHOSPHATE 4 MG/1 ML VIAL IVPUSH SCH (09:46)
[2020-10-05] MEDS: AMINO ACIDS/PROTEIN HYDROLYS 30 ML LIQUID.PKT PO SCH (09:47)
== END 2020-10-05 11:12 | DRG 177 ==
LOC: JER 12:14 → JERBED 16:28 → J4W 23:33
PROVIDERS: ADMIT Internal Medicine; ATTEND Internal Medicine
PROC: 8E0ZXY6 Isolation (ICD-10-PCS; 2020-09-19)
PROC: 2W1TX6Z Compression of Left Foot using Pressure Dressing (ICD-10-PCS; 2020-09-26)
PROC: XW13325 Transfusion of Convalescent Plasma (Nonautologous) into Peripheral Vein, Percutaneous Approach, New Technology Group 5 (ICD-10-PCS; principal; 2020-09-30)
DX: U07.1 COVID-19 (principal); N18.6 End stage renal disease; J12.89 Other viral pneumonia; I13.2 Hypertensive heart and chronic kidney disease with heart failure and with stage 5 chronic kidney disease, or end stage renal disease; I50.32 Chronic diastolic (congestive) heart failure; M86.9 Osteomyelitis, unspecified; I69.354 Hemiplegia and hemiparesis following cerebral infarction affecting left non-dominant side; E11.51 Type 2 diabetes mellitus with diabetic peripheral angiopathy without gangrene; L89.156 Pressure-induced deep tissue damage of sacral region; E11.621 Type 2 diabetes mellitus with foot ulcer; I25.10 Atherosclerotic heart disease of native coronary artery without angina pectoris; E78.5 Hyperlipidemia, unspecified; D63.1 Anemia in chronic kidney disease; N25.0 Renal osteodystrophy; I48.0 Paroxysmal atrial fibrillation; Z95.1 Presence of aortocoronary bypass graft; F41.8 Other specified anxiety disorders; E66.9 Obesity, unspecified; Z68.28 Body mass index [BMI] 28.0-28.9, adult
CPT/HCPCS: 36415; 36430; 71045-TC-FY; 71250-TC; 80048; 80053; 81003; 82550; 82553; 82728; 82962; 83615; 83735; 84100; 84484; 85025; 85027; 85379; 85610; 86140; 86803; 86850; 86900; 86901; 87040; 87086; 87340; 93005; 93010; 97116-GP; 97161-GP; 99285-25; C9803; J0885; P9017; Q5106; U0003

== ENCOUNTER 2020-12-11 14:27 | Inpatient (IN) | payer OTHER, BC ==
[2020-12-11] MEDS ORDERED: SODIUM CHLORIDE 0.9% 500 ML INFUS.BAG IV ONE (15:03)
[2020-12-11] MEDS ORDERED: ACETAMINOPHEN 500 MG TABLET (FP) PO ONE (15:08)
[2020-12-11] MEDS ORDERED: ACETAMINOPHEN 325 MG TABLET (FP) ONE (15:22)
[2020-12-11 15:52] VITALS: BMI 27.1
[2020-12-11 18:15] LABS: BASO % 0.7 % (0-2.0); EOS % 0.9 % (0-4.5); HEMATOCRIT 29.3 % (35.4-49); HEMOGLOBIN 8.9 GM/dL (11.7-16.9); LYMPH % 6.2 % (8-40); MCH 25.1 pg (25.7-33.7); MCHC 30.2 g/dl (32.0-35.9); MEAN PLT VOLUME 8.2 fl (7.5-11.1); MONO % 4.3 % (3.8-10.2); NEUT % 87.9 % (42.8-82.8); PLATELET COUNT 593 K/MM3 (134-434); RBC 3.53 M/mm3 (4.00-5.60); RDW 19.9 % (11.9-15.9); WHITE BLOOD COUNT 14.8 K/mm3 (4.0-10.0)
[2020-12-11 18:27] LABS: INR 1.34 (0.83-1.09); PROTHROMBIN TIME (PATIENT) 16.3 SEC (9.7-13.0)
[2020-12-11 18:50] LABS: POTASSIUM 3.8 mmol/L (3.5-5.1)
[2020-12-11 18:52] LABS: BLOOD UREA NITROGEN 49.4 mg/dL (7-18); CALCIUM 8.3 mg/dL (8.5-10.1)
[2020-12-11 18:57] LABS: BILIRUBIN,TOTAL 0.4 mg/dL (0.2-1); TOT PROT 7.3 g/dl (6.4-8.2)
[2020-12-11] MEDS ORDERED: VANCOMYCIN 1 GM in D5W (PRE-DOCKED) 1,000 MG/250 ML IVPB ONE (19:49)
[2020-12-11] MEDS ORDERED: VANCOMYCIN 1 GRAM (PRE-DOCKED) 1,000 MG/250 ML BAG IVPB ONE (20:17)
[2020-12-11] MEDS ORDERED: INSULIN REGULAR HUMAN 100 UNITS/ML *VIAL SQ PRN (23:59)
[2020-12-12] MEDS ORDERED: VANCOMYCIN 1 GM PREMIX - 1 GM/200 ML BAG IVPB SCH (00:15)
[2020-12-12] MEDS: APIXABAN 2.5 MG TABLET PO SCH ×3 (01:07→22:47)
[2020-12-12] MEDS ORDERED: PERITONEAL DIALYSIS 2.5% SOLN 2,500 ML IP SCH (09:15)
[2020-12-12] MEDS: DULoxetine HCL 20 MG CAPSULE.DR PO SCH (11:17)
[2020-12-12] MEDS: SODIUM BICARBONATE 650 MG TABLET PO SCH ×2 (11:17→22:46)
[2020-12-12] MEDS: GABAPENTIN 100 MG CAPSULE PO SCH ×2 (11:18→22:47)
[2020-12-12] MEDS: metoPROLOL SUCCINATE 25 MG TAB.SR.24H (FP) PO SCH (11:19)
[2020-12-12 12:23] LABS: BASO % 0.7 % (0-2.0); EOS % 1.6 % (0-4.5); HEMATOCRIT 25.5 % (35.4-49); HEMOGLOBIN 7.8 GM/dL (11.7-16.9); LYMPH % 8.5 % (8-40); MCH 25.2 pg (25.7-33.7); MCHC 30.6 g/dl (32.0-35.9); MEAN CELL VOLUME 82.5 fl (80-96); NEUT % 83.2 % (42.8-82.8); PLATELET COUNT 433 K/MM3 (134-434); RDW 19.7 % (11.9-15.9)
[2020-12-12] MEDS ORDERED: SODIUM CHLORIDE 250 ML IV PRN ×2 (12:35→14:51)
[2020-12-12 12:42] LABS: POTASSIUM 3.6 mmol/L (3.5-5.1)
[2020-12-12 12:45] LABS: CALCIUM 7.5 mg/dL (8.5-10.1)
[2020-12-12 12:46] LABS: ALBUMIN 1.6 g/dl (3.4-5.0); BLOOD UREA NITROGEN 52.9 mg/dL (7-18)
[2020-12-12 12:49] LABS: CREATININE 6.3 mg/dL (0.55-1.3)
[2020-12-12 12:51] LABS: TOT PROT 5.9 g/dl (6.4-8.2)
[2020-12-12] MEDS: ALBUMIN HUMAN 25% 12.5 GM/50 ML VIAL IVPB SCH ×4 (15:00→16:30)
[2020-12-12] MEDS ORDERED: EPOETIN ALFA-EPBX 20,000 UNIT/ML VIAL IVPUSH ONE (15:00)
[2020-12-12] MEDS ORDERED: DEXTROSE 5%-WATER - 50 ML IVPB ONE (15:20)
[2020-12-12] MEDS ORDERED: PIPERACILLIN/TAZOBACTAM 2.25 GM VIAL IVPB ONE (15:20)
[2020-12-12] MEDS: PIPERACILLIN/TAZOB 2.25 GM 2.25 GM in DEXTROSE 5%-WATER - 50 ML IVPB SCH ×2 (18:07)
[2020-12-12] MEDS: ZOLPIDEM TARTRATE 5 MG TABLET PO SCH (22:47)
[2020-12-13] MEDS ORDERED: DEXTROSE 5%-WATER - 50 ML IVPB ONE ×3 (02:25→17:03)
[2020-12-13] MEDS ORDERED: PIPERACILLIN/TAZOBACTAM 2.25 GM VIAL IVPB ONE ×3 (02:25→17:03)
[2020-12-13] MEDS: PIPERACILLIN/TAZOB 2.25 GM 2.25 GM in DEXTROSE 5%-WATER - 50 ML IVPB SCH ×3 (02:37→18:07)
[2020-12-13] MEDS: DULoxetine HCL 20 MG CAPSULE.DR PO SCH (10:00)
[2020-12-13] MEDS: SODIUM BICARBONATE 650 MG TABLET PO SCH ×2 (10:00→21:39)
[2020-12-13] MEDS: GABAPENTIN 100 MG CAPSULE PO SCH ×2 (10:01→21:40)
[2020-12-13] MEDS: APIXABAN 2.5 MG TABLET PO SCH (10:01)
[2020-12-13] MEDS: metoPROLOL SUCCINATE 25 MG TAB.SR.24H (FP) PO SCH (10:02)
[2020-12-13 10:05] LABS: BASO % 0.5 % (0-2.0); EOS % 1.5 % (0-4.5); HEMATOCRIT 25.7 % (35.4-49); LYMPH % 12.6 % (8-40); MCH 25.6 pg (25.7-33.7); MCHC 31.1 g/dl (32.0-35.9); MEAN CELL VOLUME 82.3 fl (80-96); MONO % 6.7 % (3.8-10.2); NEUT % 78.7 % (42.8-82.8); PLATELET COUNT 464 K/MM3 (134-434); RBC 3.12 M/mm3 (4.00-5.60); RDW 19.6 % (11.9-15.9); WHITE BLOOD COUNT 7.6 K/mm3 (4.0-10.0)
[2020-12-13 10:13] LABS: POTASSIUM 3.2 mmol/L (3.5-5.1)
[2020-12-13 10:14] LABS: CALCIUM 7.5 mg/dL (8.5-10.1)
[2020-12-13 10:15] LABS: ALBUMIN 1.6 g/dl (3.4-5.0)
[2020-12-13 10:18] LABS: CREATININE 4.2 mg/dL (0.55-1.3)
[2020-12-13 10:20] LABS: BILIRUBIN,TOTAL 0.4 mg/dL (0.2-1); TOT PROT 6.4 g/dl (6.4-8.2)
[2020-12-13] MEDS: ZOLPIDEM TARTRATE 5 MG TABLET PO SCH (21:39)
[2020-12-14] MEDS ORDERED: PIPERACILLIN/TAZOBACTAM 2.25 GM VIAL IVPB ONE ×3 (02:34→16:25)
[2020-12-14] MEDS ORDERED: DEXTROSE 5%-WATER - 50 ML IVPB ONE ×3 (02:34→16:25)
[2020-12-14] MEDS: PIPERACILLIN/TAZOB 2.25 GM 2.25 GM in DEXTROSE 5%-WATER - 50 ML IVPB SCH ×3 (02:55→17:41)
[2020-12-14] MEDS: INSULIN SLIDING SCALE (NOVOLOG) 1 VIAL SQ SCH ×4 (07:10→21:35)
[2020-12-14 07:31] LABS: BASO % 1.5 % (0-2.0); HEMOGLOBIN 7.9 GM/dL (11.7-16.9); MCH 25.7 pg (25.7-33.7); MCHC 31.8 g/dl (32.0-35.9); MEAN CELL VOLUME 80.9 fl (80-96); MEAN PLT VOLUME 7.7 fl (7.5-11.1); MONO % 5.8 % (3.8-10.2); NEUT % 82.7 % (42.8-82.8); PLATELET COUNT 463 K/MM3 (134-434); RBC 3.09 M/mm3 (4.00-5.60); RDW 19.4 % (11.9-15.9); WHITE BLOOD COUNT 8.5 K/mm3 (4.0-10.0)
[2020-12-14 07:49] LABS: POTASSIUM 3.3 mmol/L (3.5-5.1)
[2020-12-14 07:53] LABS: ALBUMIN 1.6 g/dl (3.4-5.0); CALCIUM 7.4 mg/dL (8.5-10.1); MAGNESIUM 1.7 mg/dL (1.8-2.4)
[2020-12-14 07:55] LABS: BLOOD UREA NITROGEN 41.4 mg/dL (7-18)
[2020-12-14 07:56] LABS: CREATININE 5.2 mg/dL (0.55-1.3)
[2020-12-14 07:58] LABS: BILIRUBIN,TOTAL 0.5 mg/dL (0.2-1); TOT PROT 6.2 g/dl (6.4-8.2)
[2020-12-14 07:59] LABS: PHOSPHOROUS 5.3 mg/dL (2.5-4.9)
[2020-12-14] MEDS: GABAPENTIN 100 MG CAPSULE PO SCH (09:21)
[2020-12-14] MEDS: DULoxetine HCL 20 MG CAPSULE.DR PO SCH (09:21)
[2020-12-14] MEDS: SODIUM BICARBONATE 650 MG TABLET PO SCH (09:22)
[2020-12-14] MEDS: metoPROLOL SUCCINATE 25 MG TAB.SR.24H (FP) PO SCH (09:22)
[2020-12-14 10:19] LABS: ANISOCYTOSIS 1+; MACROCYTOSIS 0; PLATELET ESTIMATE INCREASED
[2020-12-14] MEDS ORDERED: SODIUM CHLORIDE 250 ML IV PRN (12:04)
[2020-12-14] MEDS ORDERED: POTASSIUM CHLORIDE ORAL LIQUID 20 MEQ/15 ML PO ONE (14:23)
[2020-12-14] MEDS ORDERED: HEPARIN NA (PORCINE) 5,000 UNITS/ML 1ML VIAL ONE ×2 (16:01→22:38)
[2020-12-14] MEDS ORDERED: LIDOCAINE HCL 1%, 10 MG/ML (20ML VIAL) ONE ×2 (16:02→22:38)
[2020-12-14 21:06] LABS: HEP B CORE AB, TOT Negative (Negative)
[2020-12-14] MEDS ORDERED: POTASSIUM CHLORIDE TABS 20 MEQ TABLET.ER (FP) PO ONE (21:17)
[2020-12-14] MEDS ORDERED: MIDAZOLAM HCL 2 MG/2 ML SINGLE DOSE VIAL ONE ×2 (23:07→23:20)
[2020-12-14] MEDS ORDERED: PROPOFOL 20 ML ONE ×2 (23:07)
[2020-12-14] MEDS ORDERED: ceFAZolin SODIUM 1 GM VIAL IVPB ONE ×2 (23:35)
[2020-12-14] MEDS ORDERED: LIDOCAINE HCL 1%, 10 MG/ML (20ML VIAL) INF ONE (23:39)
[2020-12-15] MEDS ORDERED: INSULIN REGULAR HUMAN 100 UNITS/ML *VIAL SQ PRN (01:04)
[2020-12-15] MEDS: ZOLPIDEM TARTRATE 5 MG TABLET PO SCH ×2 (01:25→23:18)
[2020-12-15] MEDS ORDERED: ONDANSETRON 4 MG/2 ML VIAL IVPUSH PRN (01:25)
[2020-12-15] MEDS: APIXABAN 2.5 MG TABLET PO SCH ×3 (01:25→21:12)
[2020-12-15] MEDS ORDERED: POTASSIUM CHLORIDE TABS 20 MEQ TABLET.ER (FP) PO ONE (01:45)
[2020-12-15] MEDS: GABAPENTIN 100 MG CAPSULE PO SCH ×3 (01:50→21:12)
[2020-12-15] MEDS: SODIUM BICARBONATE 650 MG TABLET PO SCH ×3 (01:50→21:11)
[2020-12-15] MEDS ORDERED: PIPERACILLIN/TAZOBACTAM 2.25 GM VIAL IVPB ONE ×3 (01:56→17:05)
[2020-12-15] MEDS ORDERED: DEXTROSE 5%-WATER - 50 ML IVPB ONE ×3 (01:56→17:05)
[2020-12-15] MEDS: PIPERACILLIN/TAZOB 2.25 GM 2.25 GM in DEXTROSE 5%-WATER - 50 ML IVPB SCH ×3 (02:09→17:18)
[2020-12-15] MEDS: INSULIN SLIDING SCALE (NOVOLOG) 1 VIAL SQ SCH ×4 (06:06→21:11)
[2020-12-15] MEDS ORDERED: EPOETIN ALFA 10,000 UNIT/1 ML VIAL IVPUSH ONE (08:00)
[2020-12-15] MEDS ORDERED: EPOETIN ALFA-EPBX 2,000 UNIT/ML VIAL IVPUSH ONE (08:00)
[2020-12-15] MEDS ORDERED: SODIUM CHLORIDE 250 ML IV PRN (08:00)
[2020-12-15] MEDS: metoPROLOL SUCCINATE 25 MG TAB.SR.24H (FP) PO SCH (09:11)
[2020-12-15] MEDS: DULoxetine HCL 20 MG CAPSULE.DR PO SCH (09:11)
[2020-12-15 09:49] LABS: HEMATOCRIT 23.3 % (35.4-49); HEMOGLOBIN 7.3 GM/dL (11.7-16.9); MCH 25.6 pg (25.7-33.7); MCHC 31.2 g/dl (32.0-35.9); MEAN CELL VOLUME 81.9 fl (80-96); MEAN PLT VOLUME 7.9 fl (7.5-11.1); PLATELET COUNT 505 K/MM3 (134-434); RBC 2.84 M/mm3 (4.00-5.60); RDW 19.4 % (11.9-15.9); WHITE BLOOD COUNT 10.2 K/mm3 (4.0-10.0)
[2020-12-15 10:13] LABS: POTASSIUM 4.2 mmol/L (3.5-5.1)
[2020-12-15 10:17] LABS: BLOOD UREA NITROGEN 49.4 mg/dL (7-18); CALCIUM 7.3 mg/dL (8.5-10.1)
[2020-12-15 10:21] LABS: CREATININE 6.4 mg/dL (0.55-1.3)
[2020-12-15] MEDS ORDERED: VANCOMYCIN 1 GM PREMIX - 1 GM/200 ML BAG IVPB SCH (12:15)
[2020-12-15] MEDS: ATORVASTATIN CA 10 MG TABLET (FP) PO SCH (21:12)
[2020-12-16] MEDS ORDERED: PIPERACILLIN/TAZOBACTAM 2.25 GM VIAL IVPB ONE ×3 (01:10→17:19)
[2020-12-16] MEDS ORDERED: DEXTROSE 5%-WATER - 50 ML IVPB ONE ×3 (01:10→17:19)
[2020-12-16] MEDS: PIPERACILLIN/TAZOB 2.25 GM 2.25 GM in DEXTROSE 5%-WATER - 50 ML IVPB SCH ×3 (01:29→17:30)
[2020-12-16] MEDS: INSULIN SLIDING SCALE (NOVOLOG) 1 VIAL SQ SCH ×4 (06:25→23:01)
[2020-12-16] MEDS: APIXABAN 2.5 MG TABLET PO SCH ×2 (10:25→23:00)
[2020-12-16] MEDS: SODIUM BICARBONATE 650 MG TABLET PO SCH ×2 (10:25→23:01)
[2020-12-16] MEDS: DULoxetine HCL 20 MG CAPSULE.DR PO SCH (10:25)
[2020-12-16] MEDS: metoPROLOL SUCCINATE 25 MG TAB.SR.24H (FP) PO SCH (10:25)
[2020-12-16] MEDS: GABAPENTIN 100 MG CAPSULE PO SCH ×2 (10:26→23:00)
[2020-12-16 10:28] LABS: BASO % 0.7 % (0-2.0); EOS % 1.7 % (0-4.5); HEMATOCRIT 25.8 % (35.4-49); HEMOGLOBIN 8.1 GM/dL (11.7-16.9); LYMPH % 12.9 % (8-40); MCH 25.5 pg (25.7-33.7); MCHC 31.2 g/dl (32.0-35.9); MEAN CELL VOLUME 81.6 fl (80-96); MEAN PLT VOLUME 7.5 fl (7.5-11.1); MONO % 6.2 % (3.8-10.2); NEUT % 78.5 % (42.8-82.8); PLATELET COUNT 455 K/MM3 (134-434); RBC 3.16 M/mm3 (4.00-5.60); RDW 19.7 % (11.9-15.9); WHITE BLOOD COUNT 8.3 K/mm3 (4.0-10.0)
[2020-12-16 11:22] LABS: ALBUMIN 1.5 g/dl (3.4-5.0); BILIRUBIN,TOTAL 0.4 mg/dL (0.2-1)
[2020-12-16 11:23] LABS: BLOOD UREA NITROGEN 24.5 mg/dL (7-18); CALCIUM 7.9 mg/dL (8.5-10.1); CREATININE 4.1 mg/dL (0.55-1.3)
[2020-12-16 11:24] LABS: TOT PROT 6.2 g/dl (6.4-8.2)
[2020-12-16 11:28] LABS: POTASSIUM 3.7 mmol/L (3.5-5.1)
[2020-12-16] MEDS ORDERED: INSULIN (NOVOLOG) ASPART 100 UNITS/ML 10ML VIAL ONE (11:33)
[2020-12-16] MEDS: ATORVASTATIN CA 10 MG TABLET (FP) PO SCH (23:00)
[2020-12-16] MEDS: ZOLPIDEM TARTRATE 5 MG TABLET PO SCH (23:01)
[2020-12-17] MEDS ORDERED: PIPERACILLIN/TAZOBACTAM 2.25 GM VIAL IVPB ONE ×3 (02:14→16:32)
[2020-12-17] MEDS ORDERED: DEXTROSE 5%-WATER - 50 ML IVPB ONE ×3 (02:15→16:32)
[2020-12-17] MEDS: PIPERACILLIN/TAZOB 2.25 GM 2.25 GM in DEXTROSE 5%-WATER - 50 ML IVPB SCH ×3 (02:46→17:19)
[2020-12-17] MEDS: INSULIN SLIDING SCALE (NOVOLOG) 1 VIAL SQ SCH ×4 (06:28→22:15)
[2020-12-17] MEDS: APIXABAN 2.5 MG TABLET PO SCH ×2 (09:43→22:10)
[2020-12-17] MEDS: metoPROLOL SUCCINATE 25 MG TAB.SR.24H (FP) PO SCH (09:43)
[2020-12-17] MEDS: DULoxetine HCL 20 MG CAPSULE.DR PO SCH (09:43)
[2020-12-17] MEDS: GABAPENTIN 100 MG CAPSULE PO SCH ×2 (09:43→22:11)
[2020-12-17] MEDS: SODIUM BICARBONATE 650 MG TABLET PO SCH ×2 (09:43→22:10)
[2020-12-17 10:14] LABS: BASO % 1.5 % (0-2.0); EOS % 2.3 % (0-4.5); HEMATOCRIT 24.3 % (35.4-49); HEMOGLOBIN 7.6 GM/dL (11.7-16.9); LYMPH % 14.3 % (8-40); MCH 25.3 pg (25.7-33.7); MCHC 31.3 g/dl (32.0-35.9); MEAN PLT VOLUME 7.2 fl (7.5-11.1); MONO % 5.8 % (3.8-10.2); NEUT % 76.1 % (42.8-82.8); PLATELET COUNT 479 K/MM3 (134-434); RBC 3.01 M/mm3 (4.00-5.60); RDW 19.2 % (11.9-15.9); WHITE BLOOD COUNT 8.7 K/mm3 (4.0-10.0)
[2020-12-17 10:45] LABS: POTASSIUM 3.4 mmol/L (3.5-5.1)
[2020-12-17 10:56] LABS: ALBUMIN 1.5 g/dl (3.4-5.0); CALCIUM 7.7 mg/dL (8.5-10.1)
[2020-12-17 10:59] LABS: CREATININE 4.7 mg/dL (0.55-1.3)
[2020-12-17 11:01] LABS: BILIRUBIN,TOTAL 0.4 mg/dL (0.2-1); TOT PROT 6.2 g/dl (6.4-8.2)
[2020-12-17] MEDS: ZOLPIDEM TARTRATE 5 MG TABLET PO SCH (22:10)
[2020-12-17] MEDS: ATORVASTATIN CA 10 MG TABLET (FP) PO SCH (22:10)
[2020-12-18] MEDS ORDERED: DEXTROSE 5%-WATER - 50 ML IVPB ONE ×3 (01:04→16:48)
[2020-12-18] MEDS ORDERED: PIPERACILLIN/TAZOBACTAM 2.25 GM VIAL IVPB ONE ×3 (01:04→16:47)
[2020-12-18] MEDS: PIPERACILLIN/TAZOB 2.25 GM 2.25 GM in DEXTROSE 5%-WATER - 50 ML IVPB SCH ×3 (01:33→17:39)
[2020-12-18] MEDS: INSULIN SLIDING SCALE (NOVOLOG) 1 VIAL SQ SCH ×4 (06:13→21:58)
[2020-12-18] MEDS ORDERED: EPOETIN ALFA-EPBX 20,000 UNIT/ML VIAL IVPUSH ONE (09:00)
[2020-12-18] MEDS ORDERED: EPOETIN ALFA-EPBX 20,000 UNIT/ML VIAL SQ ONE (09:00)
[2020-12-18] MEDS ORDERED: SODIUM CHLORIDE 250 ML IV PRN (09:00)
[2020-12-18 09:03] LABS: HEMATOCRIT 23.1 % (35.4-49); HEMOGLOBIN 7.3 GM/dL (11.7-16.9); MCH 25.7 pg (25.7-33.7); MCHC 31.7 g/dl (32.0-35.9); MEAN PLT VOLUME 7.4 fl (7.5-11.1); PLATELET COUNT 495 K/MM3 (134-434); RBC 2.85 M/mm3 (4.00-5.60); RDW 19.1 % (11.9-15.9); WHITE BLOOD COUNT 9.4 K/mm3 (4.0-10.0)
[2020-12-18] MEDS: DULoxetine HCL 20 MG CAPSULE.DR PO SCH (09:26)
[2020-12-18] MEDS: SODIUM BICARBONATE 650 MG TABLET PO SCH ×2 (09:26→21:40)
[2020-12-18] MEDS: metoPROLOL SUCCINATE 25 MG TAB.SR.24H (FP) PO SCH (09:27)
[2020-12-18] MEDS: GABAPENTIN 100 MG CAPSULE PO SCH ×2 (09:27→21:47)
[2020-12-18] MEDS: APIXABAN 2.5 MG TABLET PO SCH ×2 (09:27→21:40)
[2020-12-18 09:34] LABS: POTASSIUM 3.5 mmol/L (3.5-5.1)
[2020-12-18 09:35] LABS: CALCIUM 7.5 mg/dL (8.5-10.1)
[2020-12-18 09:36] LABS: BLOOD UREA NITROGEN 32.8 mg/dL (7-18)
[2020-12-18 09:39] LABS: PHOSPHOROUS 4.6 mg/dL (2.5-4.9)
[2020-12-18] MEDS ORDERED: IRON SUCROSE INJECTION 100 MG in SODIUM CHLORIDE 95 ML IVPB ONE (10:41)
[2020-12-18] MEDS: AMINO ACIDS/PROTEIN HYDROLYS 30 ML LIQUID.PKT PO SCH (17:40)
[2020-12-18] MEDS: ATORVASTATIN CA 10 MG TABLET (FP) PO SCH (21:40)
[2020-12-18] MEDS: ZOLPIDEM TARTRATE 5 MG TABLET PO SCH (21:40)
[2020-12-19] MEDS ORDERED: DEXTROSE 5%-WATER - 50 ML IVPB ONE ×3 (00:48→16:59)
[2020-12-19] MEDS ORDERED: PIPERACILLIN/TAZOBACTAM 2.25 GM VIAL IVPB ONE ×3 (00:48→16:58)
[2020-12-19] MEDS: PIPERACILLIN/TAZOB 2.25 GM 2.25 GM in DEXTROSE 5%-WATER - 50 ML IVPB SCH ×3 (02:00→17:19)
[2020-12-19] MEDS: INSULIN SLIDING SCALE (NOVOLOG) 1 VIAL SQ SCH ×4 (06:23→21:12)
[2020-12-19] MEDS: AMINO ACIDS/PROTEIN HYDROLYS 30 ML LIQUID.PKT PO SCH ×2 (07:58→17:00)
[2020-12-19] MEDS: DULoxetine HCL 20 MG CAPSULE.DR PO SCH (09:27)
[2020-12-19] MEDS: SODIUM BICARBONATE 650 MG TABLET PO SCH ×2 (09:28→21:01)
[2020-12-19] MEDS: GABAPENTIN 100 MG CAPSULE PO SCH ×2 (09:28→21:02)
[2020-12-19] MEDS: metoPROLOL SUCCINATE 25 MG TAB.SR.24H (FP) PO SCH (09:28)
[2020-12-19] MEDS: APIXABAN 2.5 MG TABLET PO SCH ×2 (09:28→21:01)
[2020-12-19] MEDS ORDERED: levoFLOXacin 750 MG TABLET PO SCH (12:15)
[2020-12-19] MEDS: ATORVASTATIN CA 10 MG TABLET (FP) PO SCH (21:01)
[2020-12-19] MEDS: ZOLPIDEM TARTRATE 5 MG TABLET PO SCH (21:01)
[2020-12-20] MEDS ORDERED: PIPERACILLIN/TAZOBACTAM 2.25 GM VIAL IVPB ONE ×3 (04:14→16:43)
[2020-12-20] MEDS ORDERED: DEXTROSE 5%-WATER - 50 ML IVPB ONE ×3 (04:14→16:43)
[2020-12-20] MEDS: PIPERACILLIN/TAZOB 2.25 GM 2.25 GM in DEXTROSE 5%-WATER - 50 ML IVPB SCH ×3 (04:32→17:42)
[2020-12-20] MEDS: INSULIN SLIDING SCALE (NOVOLOG) 1 VIAL SQ SCH ×4 (06:08→22:02)
[2020-12-20] MEDS ORDERED: SODIUM CHLORIDE 250 ML IV PRN (10:00)
[2020-12-20] MEDS ORDERED: PT OWN MED DRAWER 7, Y5N ONE ×2 (10:58→13:09)
[2020-12-20] MEDS ORDERED: EPOETIN ALFA-EPBX 20,000 UNIT/ML VIAL SQ ONE (11:00)
[2020-12-20] MEDS: APIXABAN 2.5 MG TABLET PO SCH ×2 (13:15→22:02)
[2020-12-20] MEDS: GABAPENTIN 100 MG CAPSULE PO SCH ×2 (13:15→22:02)
[2020-12-20] MEDS: SODIUM BICARBONATE 650 MG TABLET PO SCH (13:15)
[2020-12-20] MEDS: AMINO ACIDS/PROTEIN HYDROLYS 30 ML LIQUID.PKT PO SCH ×3 (13:15→17:49)
[2020-12-20] MEDS: metoPROLOL SUCCINATE 25 MG TAB.SR.24H (FP) PO SCH (13:16)
[2020-12-20] MEDS: DULoxetine HCL 20 MG CAPSULE.DR PO SCH (17:29)
[2020-12-20] MEDS: PANTOPRAZOLE 40 MG TABLET PO SCH (18:59)
[2020-12-20] MEDS: LACTOBACILLUS ACIDOPHILUS 1 TABLET PO SCH (18:59)
[2020-12-20] MEDS: ATORVASTATIN CA 10 MG TABLET (FP) PO SCH (22:01)
[2020-12-20] MEDS: ZOLPIDEM TARTRATE 5 MG TABLET PO SCH (22:02)
[2020-12-20] MEDS ORDERED: MAG HYDROX/AL HYDROX/SIMETH 30 ML UNIT-DOSE CUP PO PRN (22:30)
[2020-12-21] MEDS ORDERED: ONDANSETRON 4 MG/2 ML VIAL IVPUSH PRN (01:16)
[2020-12-21] MEDS ORDERED: EPOETIN ALFA-EPBX 20,000 UNIT/ML VIAL SQ ONE (01:16)
[2020-12-21] MEDS ORDERED: INSULIN REGULAR HUMAN 100 UNITS/ML *VIAL SQ PRN (01:16)
[2020-12-21] MEDS ORDERED: PIPERACILLIN/TAZOBACTAM 2.25 GM VIAL IVPB ONE ×3 (02:27→17:17)
[2020-12-21] MEDS ORDERED: DEXTROSE 5%-WATER - 50 ML IVPB ONE ×3 (02:27→17:17)
[2020-12-21] MEDS: PIPERACILLIN/TAZOB 2.25 GM 2.25 GM in DEXTROSE 5%-WATER - 50 ML IVPB SCH ×3 (02:32→17:23)
[2020-12-21] MEDS: INSULIN SLIDING SCALE (NOVOLOG) 1 VIAL SQ SCH ×4 (06:26→21:16)
[2020-12-21 10:12] LABS: BASO % 1.2 % (0-2.0); EOS % 2.1 % (0-4.5); HEMATOCRIT 25.6 % (35.4-49); LYMPH % 18.8 % (8-40); MCH 25.8 pg (25.7-33.7); MCHC 31.4 g/dl (32.0-35.9); MEAN CELL VOLUME 82.3 fl (80-96); MEAN PLT VOLUME 7.4 fl (7.5-11.1); MONO % 7.7 % (3.8-10.2); NEUT % 70.2 % (42.8-82.8); PLATELET COUNT 476 K/MM3 (134-434); RBC 3.12 M/mm3 (4.00-5.60); RDW 20.3 % (11.9-15.9); WHITE BLOOD COUNT 8.5 K/mm3 (4.0-10.0)
[2020-12-21 10:25] LABS: POTASSIUM 3.4 mmol/L (3.5-5.1)
[2020-12-21 10:49] LABS: BILIRUBIN,TOTAL 0.4 mg/dL (0.2-1); TOT PROT 6.4 g/dl (6.4-8.2)
[2020-12-21 10:52] LABS: ALBUMIN 1.6 g/dl (3.4-5.0)
[2020-12-21 10:53] LABS: BLOOD UREA NITROGEN 15.9 mg/dL (7-18)
[2020-12-21 10:54] LABS: CALCIUM 8.1 mg/dL (8.5-10.1)
[2020-12-21] MEDS: LACTOBACILLUS ACIDOPHILUS 1 TABLET PO SCH (12:29)
[2020-12-21] MEDS: DULoxetine HCL 20 MG CAPSULE.DR PO SCH (12:29)
[2020-12-21] MEDS: GABAPENTIN 100 MG CAPSULE PO SCH ×2 (12:29→21:17)
[2020-12-21] MEDS: PANTOPRAZOLE 40 MG TABLET PO SCH (12:30)
[2020-12-21] MEDS: APIXABAN 2.5 MG TABLET PO SCH ×2 (12:30→21:17)
[2020-12-21] MEDS: metoPROLOL SUCCINATE 25 MG TAB.SR.24H (FP) PO SCH (12:35)
[2020-12-21] MEDS: AMINO ACIDS/PROTEIN HYDROLYS 30 ML LIQUID.PKT PO SCH ×2 (12:35→17:23)
[2020-12-21] MEDS ORDERED: INSULIN (NOVOLOG) ASPART 100 UNITS/ML 10ML VIAL ONE (21:06)
[2020-12-21] MEDS: ZOLPIDEM TARTRATE 5 MG TABLET PO SCH (21:16)
[2020-12-21] MEDS: ATORVASTATIN CA 10 MG TABLET (FP) PO SCH (21:17)
[2020-12-22] MEDS ORDERED: PIPERACILLIN/TAZOBACTAM 2.25 GM VIAL IVPB ONE ×3 (01:11→18:21)
[2020-12-22] MEDS ORDERED: DEXTROSE 5%-WATER - 50 ML IVPB ONE ×3 (01:11→18:21)
[2020-12-22] MEDS: PIPERACILLIN/TAZOB 2.25 GM 2.25 GM in DEXTROSE 5%-WATER - 50 ML IVPB SCH ×3 (01:17→18:38)
[2020-12-22] MEDS: INSULIN SLIDING SCALE (NOVOLOG) 1 VIAL SQ SCH ×4 (06:30→22:27)
[2020-12-22] MEDS ORDERED: SODIUM CHLORIDE 250 ML IV PRN (08:55)
[2020-12-22] MEDS ORDERED: EPOETIN ALFA-EPBX 20,000 UNIT/ML VIAL SQ ONE (09:00)
[2020-12-22] MEDS: AMINO ACIDS/PROTEIN HYDROLYS 30 ML LIQUID.PKT PO SCH ×2 (10:44→17:42)
[2020-12-22] MEDS: LACTOBACILLUS ACIDOPHILUS 1 TABLET PO SCH (10:44)
[2020-12-22] MEDS: GABAPENTIN 100 MG CAPSULE PO SCH ×2 (14:50→22:30)
[2020-12-22] MEDS: metoPROLOL SUCCINATE 25 MG TAB.SR.24H (FP) PO SCH (14:50)
[2020-12-22] MEDS: PANTOPRAZOLE 40 MG TABLET PO SCH (14:50)
[2020-12-22] MEDS ORDERED: PT OWN MED DRAWER 7, Y5N ONE (15:09)
[2020-12-22] MEDS: APIXABAN 2.5 MG TABLET PO SCH ×2 (15:13→22:30)
[2020-12-22] MEDS: DULoxetine HCL 20 MG CAPSULE.DR PO SCH (15:13)
[2020-12-22] MEDS ORDERED: SIMETHICONE 40 MG/0.6 ML BOTTLE PO PRN (21:13)
[2020-12-22] MEDS: SIMETHICONE 80 MG TAB.CHEW (FP) PO PRN (22:28)
[2020-12-22] MEDS: ATORVASTATIN CA 10 MG TABLET (FP) PO SCH (22:30)
[2020-12-22] MEDS: ZOLPIDEM TARTRATE 5 MG TABLET PO SCH (22:30)
[2020-12-23] MEDS ORDERED: DEXTROSE 5%-WATER - 50 ML IVPB ONE ×3 (02:27→18:33)
[2020-12-23] MEDS ORDERED: PIPERACILLIN/TAZOBACTAM 2.25 GM VIAL IVPB ONE ×3 (02:27→18:33)
[2020-12-23] MEDS: PIPERACILLIN/TAZOB 2.25 GM 2.25 GM in DEXTROSE 5%-WATER - 50 ML IVPB SCH ×3 (02:34→18:41)
[2020-12-23] MEDS: INSULIN SLIDING SCALE (NOVOLOG) 1 VIAL SQ SCH ×4 (06:48→23:21)
[2020-12-23] MEDS: AMINO ACIDS/PROTEIN HYDROLYS 30 ML LIQUID.PKT PO SCH ×2 (08:20→17:32)
[2020-12-23] MEDS ORDERED: PT OWN MED DRAWER 7, Y5N ONE ×2 (10:36→10:59)
[2020-12-23] MEDS: LACTOBACILLUS ACIDOPHILUS 1 TABLET PO SCH (11:04)
[2020-12-23] MEDS: APIXABAN 2.5 MG TABLET PO SCH ×2 (11:04→23:22)
[2020-12-23] MEDS: GABAPENTIN 100 MG CAPSULE PO SCH ×2 (11:04→23:22)
[2020-12-23] MEDS: metoPROLOL SUCCINATE 25 MG TAB.SR.24H (FP) PO SCH (11:05)
[2020-12-23] MEDS: DULoxetine HCL 20 MG CAPSULE.DR PO SCH (11:05)
[2020-12-23] MEDS: PANTOPRAZOLE 40 MG TABLET PO SCH (11:05)
[2020-12-23] MEDS: ATORVASTATIN CA 10 MG TABLET (FP) PO SCH (23:21)
[2020-12-23] MEDS: ZOLPIDEM TARTRATE 5 MG TABLET PO SCH (23:22)
[2020-12-24] MEDS ORDERED: DEXTROSE 5%-WATER - 50 ML IVPB ONE ×3 (02:13→17:36)
[2020-12-24] MEDS ORDERED: PIPERACILLIN/TAZOBACTAM 2.25 GM VIAL IVPB ONE ×3 (02:13→17:35)
[2020-12-24] MEDS: PIPERACILLIN/TAZOB 2.25 GM 2.25 GM in DEXTROSE 5%-WATER - 50 ML IVPB SCH ×3 (02:18→17:55)
[2020-12-24] MEDS: INSULIN SLIDING SCALE (NOVOLOG) 1 VIAL SQ SCH ×4 (05:59→22:06)
[2020-12-24] MEDS ORDERED: PT OWN MED DRAWER 7, Y5N ONE (09:41)
[2020-12-24] MEDS: AMINO ACIDS/PROTEIN HYDROLYS 30 ML LIQUID.PKT PO SCH ×2 (11:08→16:32)
[2020-12-24] MEDS: DULoxetine HCL 20 MG CAPSULE.DR PO SCH (11:09)
[2020-12-24] MEDS: APIXABAN 2.5 MG TABLET PO SCH ×2 (11:09→22:06)
[2020-12-24] MEDS: PANTOPRAZOLE 40 MG TABLET PO SCH (11:09)
[2020-12-24] MEDS: LACTOBACILLUS ACIDOPHILUS 1 TABLET PO SCH (11:09)
[2020-12-24] MEDS: metoPROLOL SUCCINATE 25 MG TAB.SR.24H (FP) PO SCH (11:10)
[2020-12-24] MEDS: GABAPENTIN 100 MG CAPSULE PO SCH ×2 (11:10→22:06)
[2020-12-24] MEDS: ZOLPIDEM TARTRATE 5 MG TABLET PO SCH (22:06)
[2020-12-24] MEDS: ATORVASTATIN CA 10 MG TABLET (FP) PO SCH (22:06)
[2020-12-25] MEDS ORDERED: PIPERACILLIN/TAZOBACTAM 2.25 GM VIAL IVPB ONE ×2 (01:24→17:49)
[2020-12-25] MEDS ORDERED: DEXTROSE 5%-WATER - 50 ML IVPB ONE ×2 (01:24→17:49)
[2020-12-25] MEDS: PIPERACILLIN/TAZOB 2.25 GM 2.25 GM in DEXTROSE 5%-WATER - 50 ML IVPB SCH ×3 (01:28→17:55)
[2020-12-25] MEDS: INSULIN SLIDING SCALE (NOVOLOG) 1 VIAL SQ SCH ×4 (06:32→21:30)
[2020-12-25] MEDS ORDERED: EPOETIN ALFA-EPBX 20,000 UNIT/ML VIAL SQ ONE (09:15)
[2020-12-25 09:22] LABS: HEMATOCRIT 25.6 % (35.4-49); MCH 26.1 pg (25.7-33.7); MCHC 31.2 g/dl (32.0-35.9); MEAN CELL VOLUME 83.7 fl (80-96); MEAN PLT VOLUME 7.6 fl (7.5-11.1); PLATELET COUNT 386 K/MM3 (134-434); RBC 3.05 M/mm3 (4.00-5.60); RDW 21.1 % (11.9-15.9); WHITE BLOOD COUNT 10.2 K/mm3 (4.0-10.0)
[2020-12-25] MEDS ORDERED: SODIUM CHLORIDE 250 ML IV PRN ×2 (09:30)
[2020-12-25 09:49] LABS: POTASSIUM 3.5 mmol/L (3.5-5.1)
[2020-12-25 10:01] LABS: BLOOD UREA NITROGEN 28.1 mg/dL (7-18); CALCIUM 7.7 mg/dL (8.5-10.1)
[2020-12-25 10:05] LABS: CREATININE 4.3 mg/dL (0.55-1.3); PHOSPHOROUS 3.8 mg/dL (2.5-4.9)
[2020-12-25] MEDS: AMINO ACIDS/PROTEIN HYDROLYS 30 ML LIQUID.PKT PO SCH (11:01)
[2020-12-25] MEDS ORDERED: PT OWN MED DRAWER 7, Y5N ONE (12:20)
[2020-12-25] MEDS: metoPROLOL SUCCINATE 25 MG TAB.SR.24H (FP) PO SCH (12:28)
[2020-12-25] MEDS: LACTOBACILLUS ACIDOPHILUS 1 TABLET PO SCH (12:28)
[2020-12-25] MEDS: GABAPENTIN 100 MG CAPSULE PO SCH ×2 (12:28→21:30)
[2020-12-25] MEDS: PANTOPRAZOLE 40 MG TABLET PO SCH (12:29)
[2020-12-25] MEDS: APIXABAN 2.5 MG TABLET PO SCH ×2 (12:29→21:30)
[2020-12-25] MEDS: DULoxetine HCL 20 MG CAPSULE.DR PO SCH (12:29)
[2020-12-25] MEDS ORDERED: INSULIN (NOVOLOG) ASPART 100 UNITS/ML 10ML VIAL ONE (21:18)
[2020-12-25] MEDS: ATORVASTATIN CA 10 MG TABLET (FP) PO SCH (21:30)
[2020-12-25] MEDS: ZOLPIDEM TARTRATE 5 MG TABLET PO SCH (21:30)
[2020-12-26] MEDS ORDERED: PIPERACILLIN/TAZOBACTAM 2.25 GM VIAL IVPB ONE ×3 (01:33→17:02)
[2020-12-26] MEDS ORDERED: DEXTROSE 5%-WATER - 50 ML IVPB ONE ×3 (01:33→17:02)
[2020-12-26] MEDS: PIPERACILLIN/TAZOB 2.25 GM 2.25 GM in DEXTROSE 5%-WATER - 50 ML IVPB SCH ×3 (01:38→17:08)
[2020-12-26] MEDS: INSULIN SLIDING SCALE (NOVOLOG) 1 VIAL SQ SCH ×4 (06:17→21:36)
[2020-12-26] MEDS ORDERED: INSULIN (NOVOLOG) ASPART 100 UNITS/ML 10ML VIAL ONE (06:31)
[2020-12-26] MEDS ORDERED: PT OWN MED DRAWER 7, Y5N ONE (09:05)
[2020-12-26] MEDS: DULoxetine HCL 20 MG CAPSULE.DR PO SCH (09:08)
[2020-12-26] MEDS: GABAPENTIN 100 MG CAPSULE PO SCH ×2 (09:08→21:36)
[2020-12-26] MEDS: PANTOPRAZOLE 40 MG TABLET PO SCH (09:08)
[2020-12-26] MEDS: LACTOBACILLUS ACIDOPHILUS 1 TABLET PO SCH (09:08)
[2020-12-26] MEDS: metoPROLOL SUCCINATE 25 MG TAB.SR.24H (FP) PO SCH (09:08)
[2020-12-26] MEDS: APIXABAN 2.5 MG TABLET PO SCH ×2 (09:08→21:36)
[2020-12-26] MEDS: COLLAGENASE CLOSTRIDIUM HIST. 30 GRAMS TUBE TP SCH (12:43)
[2020-12-26] MEDS ORDERED: SODIUM CHLORIDE 250 ML IV PRN (14:00)
[2020-12-26] MEDS: ATORVASTATIN CA 10 MG TABLET (FP) PO SCH (21:36)
[2020-12-26] MEDS: SIMETHICONE 80 MG TAB.CHEW (FP) PO PRN (21:36)
[2020-12-26] MEDS: ZOLPIDEM TARTRATE 5 MG TABLET PO SCH (21:36)
[2020-12-27] MEDS ORDERED: PIPERACILLIN/TAZOBACTAM 2.25 GM VIAL IVPB ONE ×2 (02:47→17:17)
[2020-12-27] MEDS ORDERED: DEXTROSE 5%-WATER - 50 ML IVPB ONE ×2 (02:47→17:17)
[2020-12-27] MEDS: PIPERACILLIN/TAZOB 2.25 GM 2.25 GM in DEXTROSE 5%-WATER - 50 ML IVPB SCH ×3 (02:56→17:39)
[2020-12-27] MEDS: SIMETHICONE 80 MG TAB.CHEW (FP) PO PRN ×2 (05:22→20:09)
[2020-12-27] MEDS: INSULIN SLIDING SCALE (NOVOLOG) 1 VIAL SQ SCH ×4 (06:23→21:38)
[2020-12-27] MEDS ORDERED: EPOETIN ALFA-EPBX 20,000 UNIT/ML VIAL IVPUSH ONE (09:45)
[2020-12-27] MEDS: APIXABAN 2.5 MG TABLET PO SCH ×2 (10:00→21:38)
[2020-12-27] MEDS: GABAPENTIN 100 MG CAPSULE PO SCH ×2 (10:00→21:38)
[2020-12-27 10:27] LABS: HEMATOCRIT 26.6 % (35.4-49); HEMOGLOBIN 8.2 GM/dL (11.7-16.9); MCH 26.2 pg (25.7-33.7); MCHC 31.1 g/dl (32.0-35.9); MEAN CELL VOLUME 84.3 fl (80-96); MEAN PLT VOLUME 8.1 fl (7.5-11.1); PLATELET COUNT 383 K/MM3 (134-434); RBC 3.15 M/mm3 (4.00-5.60); RDW 21.6 % (11.9-15.9); WHITE BLOOD COUNT 9.9 K/mm3 (4.0-10.0)
[2020-12-27 10:51] LABS: POTASSIUM 3.7 mmol/L (3.5-5.1)
[2020-12-27 10:52] LABS: CALCIUM 7.8 mg/dL (8.5-10.1)
[2020-12-27 10:53] LABS: BLOOD UREA NITROGEN 25.9 mg/dL (7-18)
[2020-12-27 10:56] LABS: PHOSPHOROUS 4.1 mg/dL (2.5-4.9)
[2020-12-27] MEDS: LACTOBACILLUS ACIDOPHILUS 1 TABLET PO SCH (17:23)
[2020-12-27] MEDS: PANTOPRAZOLE 40 MG TABLET PO SCH (17:23)
[2020-12-27] MEDS: DULoxetine HCL 20 MG CAPSULE.DR PO SCH (17:24)
[2020-12-27] MEDS: COLLAGENASE CLOSTRIDIUM HIST. 30 GRAMS TUBE TP SCH (17:26)
[2020-12-27] MEDS: metoPROLOL SUCCINATE 25 MG TAB.SR.24H (FP) PO SCH (17:26)
[2020-12-27] MEDS ORDERED: INSULIN (NOVOLOG) ASPART 100 UNITS/ML 10ML VIAL ONE (18:28)
[2020-12-27] MEDS: ZOLPIDEM TARTRATE 5 MG TABLET PO SCH (21:38)
[2020-12-27] MEDS: ATORVASTATIN CA 10 MG TABLET (FP) PO SCH (21:38)
[2020-12-28] MEDS ORDERED: PIPERACILLIN/TAZOBACTAM 2.25 GM VIAL IVPB ONE (01:34)
[2020-12-28] MEDS ORDERED: DEXTROSE 5%-WATER - 50 ML IVPB ONE (01:34)
[2020-12-28] MEDS: INSULIN SLIDING SCALE (NOVOLOG) 1 VIAL SQ SCH ×4 (06:06→21:32)
[2020-12-28] MEDS: APIXABAN 2.5 MG TABLET PO SCH ×2 (10:00→21:31)
[2020-12-28] MEDS: PANTOPRAZOLE 40 MG TABLET PO SCH (10:01)
[2020-12-28] MEDS: GABAPENTIN 100 MG CAPSULE PO SCH ×2 (10:01→21:32)
[2020-12-28] MEDS: LACTOBACILLUS ACIDOPHILUS 1 TABLET PO SCH (10:01)
[2020-12-28] MEDS: metoPROLOL SUCCINATE 25 MG TAB.SR.24H (FP) PO SCH (10:01)
[2020-12-28] MEDS: DULoxetine HCL 20 MG CAPSULE.DR PO SCH (10:02)
[2020-12-28] MEDS: COLLAGENASE CLOSTRIDIUM HIST. 30 GRAMS TUBE TP SCH (11:59)
[2020-12-28] MEDS ORDERED: PT OWN MED DRAWER 7, Y5N ONE ×3 (16:50→22:45)
[2020-12-28] MEDS: AMOX TR/POT CLAV 250MG/125MG TABLETS PO SCH (18:37)
[2020-12-28] MEDS: ATORVASTATIN CA 10 MG TABLET (FP) PO SCH (21:31)
[2020-12-28] MEDS: ZOLPIDEM TARTRATE 5 MG TABLET PO PRN (22:34)
[2020-12-29] MEDS: INSULIN SLIDING SCALE (NOVOLOG) 1 VIAL SQ SCH ×4 (06:05→21:54)
[2020-12-29] MEDS ORDERED: SODIUM CHLORIDE 250 ML IV PRN (07:19)
[2020-12-29] MEDS ORDERED: EPOETIN ALFA-EPBX 20,000 UNIT/ML VIAL IVPUSH ONE (08:00)
[2020-12-29 09:50] LABS: HEMATOCRIT 27.2 % (35.4-49); HEMOGLOBIN 8.4 GM/dL (11.7-16.9); MCH 25.9 pg (25.7-33.7); MCHC 30.8 g/dl (32.0-35.9); MEAN CELL VOLUME 83.9 fl (80-96); PLATELET COUNT 346 K/MM3 (134-434); RBC 3.24 M/mm3 (4.00-5.60); RDW 20.8 % (11.9-15.9); WHITE BLOOD COUNT 7.8 K/mm3 (4.0-10.0)
[2020-12-29 10:14] LABS: POTASSIUM 3.3 mmol/L (3.5-5.1)
[2020-12-29 10:16] LABS: BLOOD UREA NITROGEN 18.9 mg/dL (7-18); CALCIUM 7.8 mg/dL (8.5-10.1)
[2020-12-29 10:20] LABS: CREATININE 3.4 mg/dL (0.55-1.3); PHOSPHOROUS 3.2 mg/dL (2.5-4.9)
[2020-12-29] MEDS: DULoxetine HCL 20 MG CAPSULE.DR PO SCH (12:48)
[2020-12-29] MEDS: PANTOPRAZOLE 40 MG TABLET PO SCH (12:48)
[2020-12-29] MEDS: GABAPENTIN 100 MG CAPSULE PO SCH ×2 (12:48→21:54)
[2020-12-29] MEDS: APIXABAN 2.5 MG TABLET PO SCH ×2 (12:49→21:54)
[2020-12-29] MEDS: AMOX TR/POT CLAV 250MG/125MG TABLETS PO SCH ×2 (12:49→16:59)
[2020-12-29] MEDS: COLLAGENASE CLOSTRIDIUM HIST. 30 GRAMS TUBE TP SCH (12:49)
[2020-12-29] MEDS: LACTOBACILLUS ACIDOPHILUS 1 TABLET PO SCH (12:49)
[2020-12-29] MEDS: metoPROLOL SUCCINATE 25 MG TAB.SR.24H (FP) PO SCH (12:50)
[2020-12-29] MEDS: ZOLPIDEM TARTRATE 5 MG TABLET PO PRN (21:54)
[2020-12-29] MEDS: ATORVASTATIN CA 10 MG TABLET (FP) PO SCH (21:54)
[2020-12-29] MEDS: SIMETHICONE 80 MG TAB.CHEW (FP) PO PRN (22:15)
[2020-12-30] MEDS: INSULIN SLIDING SCALE (NOVOLOG) 1 VIAL SQ SCH ×4 (06:13→21:20)
[2020-12-30] MEDS ORDERED: PT OWN MED DRAWER 7, Y5N ONE ×2 (08:42→17:26)
[2020-12-30] MEDS: AMOX TR/POT CLAV 250MG/125MG TABLETS PO SCH ×2 (09:09→17:29)
[2020-12-30] MEDS: APIXABAN 2.5 MG TABLET PO SCH ×2 (09:09→21:20)
[2020-12-30] MEDS: GABAPENTIN 100 MG CAPSULE PO SCH ×2 (09:10→21:20)
[2020-12-30] MEDS: PANTOPRAZOLE 40 MG TABLET PO SCH (09:10)
[2020-12-30] MEDS: metoPROLOL SUCCINATE 25 MG TAB.SR.24H (FP) PO SCH (09:10)
[2020-12-30] MEDS: LACTOBACILLUS ACIDOPHILUS 1 TABLET PO SCH (09:10)
[2020-12-30] MEDS: DULoxetine HCL 20 MG CAPSULE.DR PO SCH (09:10)
[2020-12-30] MEDS: SIMETHICONE 80 MG TAB.CHEW (FP) PO PRN (09:18)
[2020-12-30] MEDS: COLLAGENASE CLOSTRIDIUM HIST. 30 GRAMS TUBE TP SCH (10:00)
[2020-12-30] MEDS: ATORVASTATIN CA 10 MG TABLET (FP) PO SCH (21:20)
[2020-12-30] MEDS: ZOLPIDEM TARTRATE 5 MG TABLET PO PRN (21:20)
[2020-12-31] MEDS: INSULIN SLIDING SCALE (NOVOLOG) 1 VIAL SQ SCH ×4 (06:28→23:08)
[2020-12-31] MEDS: AMOX TR/POT CLAV 250MG/125MG TABLETS PO SCH ×2 (08:21→16:58)
[2020-12-31] MEDS: metoPROLOL SUCCINATE 25 MG TAB.SR.24H (FP) PO SCH (10:00)
[2020-12-31] MEDS: APIXABAN 2.5 MG TABLET PO SCH ×2 (10:00→23:07)
[2020-12-31] MEDS: DULoxetine HCL 20 MG CAPSULE.DR PO SCH (10:00)
[2020-12-31] MEDS: PANTOPRAZOLE 40 MG TABLET PO SCH (10:00)
[2020-12-31] MEDS: GABAPENTIN 100 MG CAPSULE PO SCH ×2 (10:00→23:07)
[2020-12-31] MEDS: LACTOBACILLUS ACIDOPHILUS 1 TABLET PO SCH (10:00)
[2020-12-31] MEDS: SIMETHICONE 80 MG TAB.CHEW (FP) PO PRN ×2 (10:01→16:58)
[2020-12-31] MEDS: COLLAGENASE CLOSTRIDIUM HIST. 30 GRAMS TUBE TP SCH (12:02)
[2020-12-31] MEDS ORDERED: PT OWN MED DRAWER 7, Y5N ONE (16:39)
[2020-12-31] MEDS ORDERED: ZOLPIDEM TARTRATE 5 MG TABLET PO PRN (22:43)
[2020-12-31] MEDS: ATORVASTATIN CA 10 MG TABLET (FP) PO SCH (23:07)
[2021-01-01] MEDS: INSULIN SLIDING SCALE (NOVOLOG) 1 VIAL SQ SCH ×4 (06:08→21:13)
[2021-01-01] MEDS ORDERED: EPOETIN ALFA-EPBX 10,000 UNIT/ML VIAL SQ ONE (07:00)
[2021-01-01] MEDS ORDERED: SODIUM CHLORIDE 250 ML IV PRN (07:00)
[2021-01-01 10:14] LABS: HEMATOCRIT 27.6 % (35.4-49); HEMOGLOBIN 8.6 GM/dL (11.7-16.9); MCH 26.2 pg (25.7-33.7); MCHC 31.4 g/dl (32.0-35.9); MEAN CELL VOLUME 83.4 fl (80-96); MEAN PLT VOLUME 8.2 fl (7.5-11.1); PLATELET COUNT 317 K/MM3 (134-434); RDW 20.9 % (11.9-15.9); WHITE BLOOD COUNT 7.6 K/mm3 (4.0-10.0)
[2021-01-01 10:44] LABS: POTASSIUM 3.4 mmol/L (3.5-5.1)
[2021-01-01 10:45] LABS: CALCIUM 7.8 mg/dL (8.5-10.1)
[2021-01-01 10:46] LABS: BLOOD UREA NITROGEN 35.8 mg/dL (7-18)
[2021-01-01 10:49] LABS: CREATININE 4.1 mg/dL (0.55-1.3)
[2021-01-01] MEDS: metoPROLOL SUCCINATE 25 MG TAB.SR.24H (FP) PO SCH (14:36)
[2021-01-01] MEDS: LACTOBACILLUS ACIDOPHILUS 1 TABLET PO SCH (14:36)
[2021-01-01] MEDS: DULoxetine HCL 20 MG CAPSULE.DR PO SCH (14:36)
[2021-01-01] MEDS: PANTOPRAZOLE 40 MG TABLET PO SCH (14:36)
[2021-01-01] MEDS: AMOX TR/POT CLAV 250MG/125MG TABLETS PO SCH ×2 (14:37→17:16)
[2021-01-01] MEDS: GABAPENTIN 100 MG CAPSULE PO SCH ×2 (14:37→21:14)
[2021-01-01] MEDS: APIXABAN 2.5 MG TABLET PO SCH ×2 (14:37→21:13)
[2021-01-01] MEDS: COLLAGENASE CLOSTRIDIUM HIST. 30 GRAMS TUBE TP SCH (14:38)
[2021-01-01] MEDS ORDERED: INSULIN (NOVOLOG) ASPART 100 UNITS/ML 10ML VIAL ONE (21:07)
[2021-01-01] MEDS: ATORVASTATIN CA 10 MG TABLET (FP) PO SCH (21:13)
[2021-01-01 21:22] VITALS: BP 161/76; PULSE 75; TEMP 98.6
== END 2021-01-01 22:45 | DRG 871 ==
LOC: JER 14:27 → JERBED 16:30 → J4W 12-12 02:54 → J7W 12-20 01:02
PROVIDERS: ADMIT Internal Medicine; ATTEND Internal Medicine
PROC: 5A1D70Z Performance of Urinary Filtration, Intermittent, Less than 6 Hours Per Day (ICD-10-PCS; 2020-12-12)
PROC: B40DYZZ Plain Radiography of Aorta and Bilateral Lower Extremity Arteries using Other Contrast (ICD-10-PCS; principal; 2020-12-15)
PROC: B40FYZZ Plain Radiography of Right Lower Extremity Arteries using Other Contrast (ICD-10-PCS; 2020-12-15)
PROC: 5A1D70Z Performance of Urinary Filtration, Intermittent, Less than 6 Hours Per Day (ICD-10-PCS; 2020-12-15)
PROC: 5A1D70Z Performance of Urinary Filtration, Intermittent, Less than 6 Hours Per Day (ICD-10-PCS; 2020-12-18)
PROC: 5A1D70Z Performance of Urinary Filtration, Intermittent, Less than 6 Hours Per Day (ICD-10-PCS; 2020-12-20)
PROC: 5A1D70Z Performance of Urinary Filtration, Intermittent, Less than 6 Hours Per Day (ICD-10-PCS; 2020-12-22)
PROC: 5A1D70Z Performance of Urinary Filtration, Intermittent, Less than 6 Hours Per Day (ICD-10-PCS; 2020-12-25)
PROC: 5A1D70Z Performance of Urinary Filtration, Intermittent, Less than 6 Hours Per Day (ICD-10-PCS; 2020-12-27)
PROC: 5A1D70Z Performance of Urinary Filtration, Intermittent, Less than 6 Hours Per Day (ICD-10-PCS; 2020-12-29)
PROC: 5A1D70Z Performance of Urinary Filtration, Intermittent, Less than 6 Hours Per Day (ICD-10-PCS; 2021-01-01)
DX: A41.89 Other specified sepsis (principal); N18.6 End stage renal disease; I13.2 Hypertensive heart and chronic kidney disease with heart failure and with stage 5 chronic kidney disease, or end stage renal disease; I50.32 Chronic diastolic (congestive) heart failure; L97.528 Non-pressure chronic ulcer of other part of left foot with other specified severity; E11.52 Type 2 diabetes mellitus with diabetic peripheral angiopathy with gangrene; L03.115 Cellulitis of right lower limb; L03.116 Cellulitis of left lower limb; I96 Gangrene, not elsewhere classified; L97.519 Non-pressure chronic ulcer of other part of right foot with unspecified severity; I25.10 Atherosclerotic heart disease of native coronary artery without angina pectoris; E11.22 Type 2 diabetes mellitus with diabetic chronic kidney disease; Z99.2 Dependence on renal dialysis; E11.621 Type 2 diabetes mellitus with foot ulcer; I48.0 Paroxysmal atrial fibrillation; D63.1 Anemia in chronic kidney disease; Z95.1 Presence of aortocoronary bypass graft; R19.7 Diarrhea, unspecified; F41.8 Other specified anxiety disorders; E78.00 Pure hypercholesterolemia, unspecified; E87.6 Hypokalemia; E11.628 Type 2 diabetes mellitus with other skin complications; L08.9 Local infection of the skin and subcutaneous tissue, unspecified; Z86.73 Personal history of transient ischemic attack (TIA), and cerebral infarction without residual deficits; Z98.84 Bariatric surgery status; Z86.16 Personal history of COVID-19
CPT/HCPCS: 36415; 71045-TC-FY; 72132-TC; 74177-TC; 76000-TC-FY; 76870-TC; 80048; 80053; 80061; 82272; 82962; 83036; 83605; 83721; 83735; 84100; 84443; 84484; 85025; 85027; 85610; 85730; 86704; 86705; 86706; 86707; 86803; 86850; 86900; 86901; 87040; 87070; 87186; 87205; 87324; 87340; 87449; 93005; 93010; 94760; 97116-GP; 97161-GP; 99285-25; C9803; G0480; J1644; J1756; Q5106; Q9967; U0003

== ENCOUNTER 2021-02-19 15:13 | Inpatient (IN) | payer OTHER, BC ==
[2021-02-19 19:12] LABS: BASO % 1.1 % (0-2.0); HEMATOCRIT 24.6 % (35.4-49); HEMOGLOBIN 7.7 GM/dL (11.7-16.9); LYMPH % 18.8 % (8-40); MCH 26.1 pg (25.7-33.7); MCHC 31.5 g/dl (32.0-35.9); MEAN CELL VOLUME 82.8 fl (80-96); MEAN PLT VOLUME 7.2 fl (7.5-11.1); MONO % 7.2 % (3.8-10.2); NEUT % 70.9 % (42.8-82.8); PLATELET COUNT 381 K/MM3 (134-434); RBC 2.97 M/mm3 (4.00-5.60); RDW 18.1 % (11.9-15.9); WHITE BLOOD COUNT 8.2 K/mm3 (4.0-10.0)
[2021-02-19 19:19] LABS: INR 1.38 (0.83-1.09); PROTHROMBIN TIME (PATIENT) 16.5 SEC (9.7-13.0)
[2021-02-19 19:21] LABS: ACTIVATED PTT 35.6 SECONDS (25.2-36.5)
[2021-02-19 19:42] LABS: ALBUMIN 1.8 g/dl (3.4-5.0); BLOOD UREA NITROGEN 49.7 mg/dL (7-18); MAGNESIUM 1.9 mg/dL (1.8-2.4)
[2021-02-19 19:45] LABS: CREATININE 4.8 mg/dL (0.55-1.3)
[2021-02-19 19:46] LABS: PHOSPHOROUS 4.4 mg/dL (2.5-4.9)
[2021-02-19 19:47] LABS: BILIRUBIN,TOTAL 0.3 mg/dL (0.2-1)
[2021-02-19] MEDS ORDERED: SODIUM CHLORIDE 250 ML IV PRN (21:48)
[2021-02-19] MEDS ORDERED: APIXABAN 2.5 MG TABLET ONE (23:04)
[2021-02-19] MEDS: APIXABAN 2.5 MG TABLET PO SCH (23:08)
[2021-02-19] MEDS ORDERED: ZOLPIDEM TARTRATE 5 MG TABLET ONE (23:09)
[2021-02-19] MEDS: ZOLPIDEM TARTRATE 5 MG TABLET PO PRN (23:11)
[2021-02-20] MEDS ORDERED: ACETAMINOPHEN 325 MG TABLET (FP) PO ONE (01:35)
[2021-02-20] MEDS: INSULIN SLIDING SCALE (NOVOLOG) 1 VIAL SQ SCH ×4 (06:29→22:09)
[2021-02-20 08:53] LABS: HEMATOCRIT 22.7 % (35.4-49); HEMOGLOBIN 7.3 GM/dL (11.7-16.9); MCH 26.3 pg (25.7-33.7); MCHC 32.2 g/dl (32.0-35.9); MEAN CELL VOLUME 81.8 fl (80-96); MEAN PLT VOLUME 7.3 fl (7.5-11.1); PLATELET COUNT 360 K/MM3 (134-434); RBC 2.78 M/mm3 (4.00-5.60); RDW 18.2 % (11.9-15.9); WHITE BLOOD COUNT 7.5 K/mm3 (4.0-10.0)
[2021-02-20 09:38] LABS: BLOOD UREA NITROGEN 56.1 mg/dL (7-18); CALCIUM 8.2 mg/dL (8.5-10.1); CREATININE 5.1 mg/dL (0.55-1.3); PHOSPHOROUS 4.2 mg/dL (2.5-4.9)
[2021-02-20] MEDS ORDERED: SODIUM BICARBONATE 650 MG TABLET PO SCH (10:00)
[2021-02-20] MEDS: GABAPENTIN 100 MG CAPSULE PO SCH ×2 (10:35→22:09)
[2021-02-20] MEDS: DULoxetine HCL 20 MG CAPSULE.DR PO SCH (10:35)
[2021-02-20] MEDS: metoPROLOL SUCCINATE 25 MG TAB.SR.24H (FP) PO SCH (10:35)
[2021-02-20] MEDS: APIXABAN 2.5 MG TABLET PO SCH ×2 (10:35→22:09)
[2021-02-20] MEDS ORDERED: POTASSIUM CHLORIDE TABS 20 MEQ TABLET.ER (FP) PO ONE (15:51)
[2021-02-20] MEDS: ATORVASTATIN CA 10 MG TABLET (FP) PO SCH (22:09)
[2021-02-21] MEDS: ZOLPIDEM TARTRATE 5 MG TABLET PO PRN ×2 (00:01→21:14)
[2021-02-21] MEDS: INSULIN SLIDING SCALE (NOVOLOG) 1 VIAL SQ SCH ×4 (06:32→21:15)
[2021-02-21 09:11] LABS: CALCIUM 7.9 mg/dL (8.5-10.1)
[2021-02-21 09:15] LABS: CREATININE 3.1 mg/dL (0.55-1.3)
[2021-02-21 09:20] LABS: BLOOD UREA NITROGEN 26.6 mg/dL (7-18)
[2021-02-21] MEDS: metoPROLOL SUCCINATE 25 MG TAB.SR.24H (FP) PO SCH (09:50)
[2021-02-21] MEDS: DULoxetine HCL 20 MG CAPSULE.DR PO SCH (09:50)
[2021-02-21] MEDS: GABAPENTIN 100 MG CAPSULE PO SCH ×2 (09:50→21:08)
[2021-02-21] MEDS: APIXABAN 2.5 MG TABLET PO SCH ×2 (09:50→21:08)
[2021-02-21 11:07] LABS: BLOOD UREA NITROGEN 28.3 mg/dL (7-18); CALCIUM 8.4 mg/dL (8.5-10.1)
[2021-02-21 11:11] LABS: CREATININE 3.4 mg/dL (0.55-1.3)
[2021-02-21] MEDS: POVIDONE-IODINE 10% SOLN 118 ML BOTTLE TP SCH (12:00)
[2021-02-21] MEDS: ATORVASTATIN CA 10 MG TABLET (FP) PO SCH (21:08)
[2021-02-22] MEDS: INSULIN SLIDING SCALE (NOVOLOG) 1 VIAL SQ SCH ×4 (06:38→21:46)
[2021-02-22 07:46] LABS: BLOOD UREA NITROGEN 34.8 mg/dL (7-18)
[2021-02-22 07:50] LABS: CALCIUM 8.5 mg/dL (8.5-10.1); CREATININE 3.9 mg/dL (0.55-1.3)
[2021-02-22] MEDS: APIXABAN 2.5 MG TABLET PO SCH ×2 (09:09→21:28)
[2021-02-22] MEDS: POVIDONE-IODINE 10% SOLN 118 ML BOTTLE TP SCH (09:09)
[2021-02-22] MEDS: DULoxetine HCL 20 MG CAPSULE.DR PO SCH (09:09)
[2021-02-22] MEDS: metoPROLOL SUCCINATE 25 MG TAB.SR.24H (FP) PO SCH (09:09)
[2021-02-22] MEDS: GABAPENTIN 100 MG CAPSULE PO SCH ×2 (09:09→21:28)
[2021-02-22] MEDS ORDERED: SODIUM CHLORIDE 250 ML IV PRN (11:55)
[2021-02-22 14:44] VITALS: BMI 23.1
[2021-02-22] MEDS: ACETAMINOPHEN 325 MG TABLET (FP) PO PRN (19:42)
[2021-02-22] MEDS: ATORVASTATIN CA 10 MG TABLET (FP) PO SCH (21:28)
[2021-02-22] MEDS: ZOLPIDEM TARTRATE 5 MG TABLET PO PRN (21:28)
[2021-02-23] MEDS: INSULIN SLIDING SCALE (NOVOLOG) 1 VIAL SQ SCH ×4 (06:10→21:45)
[2021-02-23 08:33] LABS: HEMATOCRIT 22.9 % (35.4-49); HEMOGLOBIN 7.4 GM/dL (11.7-16.9); MCH 26.7 pg (25.7-33.7); MCHC 32.3 g/dl (32.0-35.9); MEAN CELL VOLUME 82.6 fl (80-96); MEAN PLT VOLUME 7.4 fl (7.5-11.1); PLATELET COUNT 305 K/MM3 (134-434); RBC 2.78 M/mm3 (4.00-5.60); RDW 18.3 % (11.9-15.9); WHITE BLOOD COUNT 7.7 K/mm3 (4.0-10.0)
[2021-02-23 08:49] LABS: CALCIUM 7.9 mg/dL (8.5-10.1)
[2021-02-23 08:50] LABS: BLOOD UREA NITROGEN 48.5 mg/dL (7-18)
[2021-02-23 08:53] LABS: CREATININE 4.3 mg/dL (0.55-1.3)
[2021-02-23] MEDS ORDERED: PT OWN MED DRAWER 7, Y5N ONE (11:09)
[2021-02-23] MEDS: DULoxetine HCL 20 MG CAPSULE.DR PO SCH (11:13)
[2021-02-23] MEDS: GABAPENTIN 100 MG CAPSULE PO SCH ×2 (11:13→21:45)
[2021-02-23] MEDS: metoPROLOL SUCCINATE 25 MG TAB.SR.24H (FP) PO SCH (11:13)
[2021-02-23] MEDS: APIXABAN 2.5 MG TABLET PO SCH ×2 (11:14→21:45)
[2021-02-23] MEDS ORDERED: PIPERACILLIN/TAZOBACTAM 2.25 GM VIAL IVPB ONE ×2 (13:36→16:42)
[2021-02-23] MEDS ORDERED: DEXTROSE 5%-WATER - 50 ML IVPB ONE ×2 (13:36→16:42)
[2021-02-23] MEDS: PIPERACILLIN/TAZOB 2.25 GM 2.25 GM in DEXTROSE 5%-WATER - 50 ML IVPB SCH ×2 (13:52→17:07)
[2021-02-23] MEDS: POVIDONE-IODINE 10% SOLN 118 ML BOTTLE TP SCH (13:55)
[2021-02-23] MEDS: ACETAMINOPHEN 325 MG TABLET (FP) PO PRN (16:54)
[2021-02-23] MEDS: ATORVASTATIN CA 10 MG TABLET (FP) PO SCH (21:45)
[2021-02-23] MEDS: ZOLPIDEM TARTRATE 5 MG TABLET PO PRN (21:52)
[2021-02-24] MEDS ORDERED: DEXTROSE 5%-WATER - 50 ML IVPB ONE ×3 (01:01→16:30)
[2021-02-24] MEDS ORDERED: PIPERACILLIN/TAZOBACTAM 2.25 GM VIAL IVPB ONE ×3 (01:01→16:30)
[2021-02-24] MEDS: PIPERACILLIN/TAZOB 2.25 GM 2.25 GM in DEXTROSE 5%-WATER - 50 ML IVPB SCH ×3 (01:24→17:42)
[2021-02-24] MEDS: INSULIN SLIDING SCALE (NOVOLOG) 1 VIAL SQ SCH ×4 (06:24→21:30)
[2021-02-24 08:08] LABS: BLOOD UREA NITROGEN 27.4 mg/dL (7-18); CALCIUM 7.8 mg/dL (8.5-10.1)
[2021-02-24 08:12] LABS: CREATININE 3.2 mg/dL (0.55-1.3)
[2021-02-24] MEDS: DULoxetine HCL 20 MG CAPSULE.DR PO SCH (09:31)
[2021-02-24] MEDS: GABAPENTIN 100 MG CAPSULE PO SCH ×2 (09:31→21:30)
[2021-02-24] MEDS: APIXABAN 2.5 MG TABLET PO SCH ×2 (09:32→21:30)
[2021-02-24] MEDS: metoPROLOL SUCCINATE 25 MG TAB.SR.24H (FP) PO SCH (09:32)
[2021-02-24] MEDS: POVIDONE-IODINE 10% SOLN 118 ML BOTTLE TP SCH (15:04)
[2021-02-24] MEDS: ZOLPIDEM TARTRATE 5 MG TABLET PO PRN (21:30)
[2021-02-24] MEDS: ATORVASTATIN CA 10 MG TABLET (FP) PO SCH (21:30)
[2021-02-25] MEDS ORDERED: PIPERACILLIN/TAZOBACTAM 2.25 GM VIAL IVPB ONE ×3 (01:06→16:57)
[2021-02-25] MEDS ORDERED: DEXTROSE 5%-WATER - 50 ML IVPB ONE ×3 (01:07→16:57)
[2021-02-25] MEDS: PIPERACILLIN/TAZOB 2.25 GM 2.25 GM in DEXTROSE 5%-WATER - 50 ML IVPB SCH ×3 (01:53→17:12)
[2021-02-25] MEDS: INSULIN SLIDING SCALE (NOVOLOG) 1 VIAL SQ SCH ×4 (06:47→21:21)
[2021-02-25] MEDS: DULoxetine HCL 20 MG CAPSULE.DR PO SCH (09:00)
[2021-02-25] MEDS: APIXABAN 2.5 MG TABLET PO SCH ×2 (09:00→21:20)
[2021-02-25] MEDS: GABAPENTIN 100 MG CAPSULE PO SCH ×2 (09:00→21:20)
[2021-02-25] MEDS: metoPROLOL SUCCINATE 25 MG TAB.SR.24H (FP) PO SCH (09:01)
[2021-02-25 10:18] LABS: BASO % 0.6 % (0-2.0); EOS % 1.7 % (0-4.5); HEMATOCRIT 22.2 % (35.4-49); HEMOGLOBIN 7.1 GM/dL (11.7-16.9); LYMPH % 13.3 % (8-40); MCH 26.9 pg (25.7-33.7); MCHC 31.9 g/dl (32.0-35.9); MEAN CELL VOLUME 84.3 fl (80-96); MEAN PLT VOLUME 7.8 fl (7.5-11.1); MONO % 5.7 % (3.8-10.2); NEUT % 78.7 % (42.8-82.8); PLATELET COUNT 251 K/MM3 (134-434); RBC 2.64 M/mm3 (4.00-5.60); RDW 18.2 % (11.9-15.9); WHITE BLOOD COUNT 7.7 K/mm3 (4.0-10.0)
[2021-02-25 10:32] LABS: CHLORIDE 98 mmol/L (98-107); SODIUM 134 mmol/L (136-145)
[2021-02-25 10:35] LABS: CALCIUM 7.8 mg/dL (8.5-10.1)
[2021-02-25 10:36] LABS: ALBUMIN 1.7 g/dl (3.4-5.0); ANION GAP 7 MMOL/L (8-16); BLOOD UREA NITROGEN 37.5 mg/dL (7-18); CO2 29 mmol/L (21-32)
[2021-02-25 10:39] LABS: SGOT/AST 13 U/L (15-37); SGPT/ALT 12 U/L (13-61)
[2021-02-25 10:41] LABS: BILIRUBIN,TOTAL 0.3 mg/dL (0.2-1); TOT PROT 6.7 g/dl (6.4-8.2)
[2021-02-25 10:42] LABS: ALK PHOS 75 U/L (45-117)
[2021-02-25 10:51] LABS: GLUCOSE,RANDOM 412 mg/dL (74-106)
[2021-02-25] MEDS ORDERED: PANTOPRAZOLE 40 MG TABLET PO ONE (11:45)
[2021-02-25] MEDS: ACETAMINOPHEN 325 MG TABLET (FP) PO PRN (14:51)
[2021-02-25] MEDS: POVIDONE-IODINE 10% SOLN 118 ML BOTTLE TP SCH (15:34)
[2021-02-25] MEDS: ATORVASTATIN CA 10 MG TABLET (FP) PO SCH (21:20)
[2021-02-25] MEDS: ZOLPIDEM TARTRATE 5 MG TABLET PO PRN (21:20)
[2021-02-26] MEDS ORDERED: DEXTROSE 5%-WATER - 50 ML IVPB ONE ×3 (01:37→16:41)
[2021-02-26] MEDS ORDERED: PIPERACILLIN/TAZOBACTAM 2.25 GM VIAL IVPB ONE ×3 (01:37→16:40)
[2021-02-26] MEDS: PIPERACILLIN/TAZOB 2.25 GM 2.25 GM in DEXTROSE 5%-WATER - 50 ML IVPB SCH ×3 (02:01→17:44)
[2021-02-26] MEDS: INSULIN SLIDING SCALE (NOVOLOG) 1 VIAL SQ SCH ×4 (06:25→22:31)
[2021-02-26] MEDS ORDERED: SODIUM CHLORIDE 250 ML IV PRN (08:09)
[2021-02-26] MEDS: ACETAMINOPHEN 325 MG TABLET (FP) PO PRN ×2 (10:37→18:42)
[2021-02-26] MEDS: metoPROLOL SUCCINATE 25 MG TAB.SR.24H (FP) PO SCH (10:40)
[2021-02-26] MEDS: DULoxetine HCL 20 MG CAPSULE.DR PO SCH (10:40)
[2021-02-26] MEDS: GABAPENTIN 100 MG CAPSULE PO SCH ×2 (10:40→22:32)
[2021-02-26] MEDS: APIXABAN 2.5 MG TABLET PO SCH ×2 (10:40→22:32)
[2021-02-26] MEDS: POVIDONE-IODINE 10% SOLN 118 ML BOTTLE TP SCH (14:49)
[2021-02-26] MEDS: ZOLPIDEM TARTRATE 5 MG TABLET PO PRN (22:32)
[2021-02-26] MEDS: ATORVASTATIN CA 10 MG TABLET (FP) PO SCH (22:32)
[2021-02-26] MEDS ORDERED: PANTOPRAZOLE 40 MG TABLET PO ONE (23:00)
[2021-02-27] MEDS ORDERED: DEXTROSE 5%-WATER - 50 ML IVPB ONE ×3 (00:59→16:08)
[2021-02-27] MEDS ORDERED: PIPERACILLIN/TAZOBACTAM 2.25 GM VIAL IVPB ONE ×3 (00:59→16:08)
[2021-02-27] MEDS: PIPERACILLIN/TAZOB 2.25 GM 2.25 GM in DEXTROSE 5%-WATER - 50 ML IVPB SCH ×3 (01:17→17:44)
[2021-02-27] MEDS: INSULIN SLIDING SCALE (NOVOLOG) 1 VIAL SQ SCH ×4 (06:34→21:29)
[2021-02-27] MEDS: ACETAMINOPHEN 325 MG TABLET (FP) PO PRN ×2 (06:40→18:28)
[2021-02-27] MEDS ORDERED: PT OWN MED DRAWER 7, Y5N ONE (08:49)
[2021-02-27] MEDS: metoPROLOL SUCCINATE 25 MG TAB.SR.24H (FP) PO SCH (09:20)
[2021-02-27] MEDS: VITAMIN B COMP W-C 1 EA TABLET (NEPHRO-VITE) PO SCH (09:20)
[2021-02-27] MEDS: APIXABAN 2.5 MG TABLET PO SCH ×2 (09:20→21:21)
[2021-02-27] MEDS: DULoxetine HCL 20 MG CAPSULE.DR PO SCH (09:20)
[2021-02-27] MEDS: GABAPENTIN 100 MG CAPSULE PO SCH ×2 (09:20→21:21)
[2021-02-27] MEDS ORDERED: SODIUM CHLORIDE 250 ML IV PRN (10:29)
[2021-02-27] MEDS: POVIDONE-IODINE 10% SOLN 118 ML BOTTLE TP SCH (13:56)
[2021-02-27] MEDS: COLLAGENASE CLOSTRIDIUM HIST. 30 GRAMS TUBE TP SCH (18:06)
[2021-02-27] MEDS ORDERED: IRON SUCROSE INJECTION 100 MG in SODIUM CHLORIDE 95 ML IVPB ONE (20:44)
[2021-02-27] MEDS: ZOLPIDEM TARTRATE 5 MG TABLET PO PRN ×2 (21:21→22:13)
[2021-02-27] MEDS: ATORVASTATIN CA 10 MG TABLET (FP) PO SCH (21:21)
[2021-02-27] MEDS: PANTOPRAZOLE 40 MG TABLET PO SCH (21:21)
[2021-02-27] MEDS: INSULIN (LEVEMIR) 100 UNITS/ML UNITS SQ SCH (21:32)
[2021-02-28] MEDS ORDERED: DEXTROSE 5%-WATER - 50 ML IVPB ONE ×2 (03:27→14:48)
[2021-02-28] MEDS ORDERED: PIPERACILLIN/TAZOBACTAM 2.25 GM VIAL IVPB ONE ×2 (03:27→14:48)
[2021-02-28] MEDS: PIPERACILLIN/TAZOB 2.25 GM 2.25 GM in DEXTROSE 5%-WATER - 50 ML IVPB SCH ×3 (03:30→17:54)
[2021-02-28] MEDS: INSULIN SLIDING SCALE (NOVOLOG) 1 VIAL SQ SCH ×4 (06:17→21:45)
[2021-02-28] MEDS: INSULIN (LEVEMIR) 100 UNITS/ML UNITS SQ SCH ×2 (06:22→21:45)
[2021-02-28] MEDS: ACETAMINOPHEN 325 MG TABLET (FP) PO PRN (10:02)
[2021-02-28] MEDS ORDERED: EPOETIN ALFA-EPBX 20,000 UNIT/ML VIAL SQ ONE (11:00)
[2021-02-28] MEDS ORDERED: IRON SUCROSE INJECTION 100 MG in SODIUM CHLORIDE 95 ML IVPB ONE (11:15)
[2021-02-28 12:32] LABS: BASO % 0.8 % (0-2.0); EOS % 3.1 % (0-4.5); HEMOGLOBIN 7.1 GM/dL (11.7-16.9); MCH 26.4 pg (25.7-33.7); MCHC 32.1 g/dl (32.0-35.9); MEAN CELL VOLUME 82.1 fl (80-96); MEAN PLT VOLUME 7.8 fl (7.5-11.1); NEUT % 66.1 % (42.8-82.8); PLATELET COUNT 291 K/MM3 (134-434); RBC 2.68 M/mm3 (4.00-5.60); RDW 18.2 % (11.9-15.9); WHITE BLOOD COUNT 6.4 K/mm3 (4.0-10.0)
[2021-02-28 12:53] LABS: ALBUMIN 1.6 g/dl (3.4-5.0); BLOOD UREA NITROGEN 36.1 mg/dL (7-18); CALCIUM 7.3 mg/dL (8.5-10.1)
[2021-02-28 12:57] LABS: CREATININE 3.8 mg/dL (0.55-1.3)
[2021-02-28 12:58] LABS: BILIRUBIN,TOTAL 0.2 mg/dL (0.2-1); TOT PROT 6.4 g/dl (6.4-8.2)
[2021-02-28] MEDS: POVIDONE-IODINE 10% SOLN 118 ML BOTTLE TP SCH (14:44)
[2021-02-28] MEDS: metoPROLOL SUCCINATE 25 MG TAB.SR.24H (FP) PO SCH (14:45)
[2021-02-28] MEDS: COLLAGENASE CLOSTRIDIUM HIST. 30 GRAMS TUBE TP SCH (14:45)
[2021-02-28] MEDS: VITAMIN B COMP W-C 1 EA TABLET (NEPHRO-VITE) PO SCH (15:14)
[2021-02-28] MEDS: APIXABAN 2.5 MG TABLET PO SCH ×2 (15:14→21:45)
[2021-02-28] MEDS: PANTOPRAZOLE 40 MG TABLET PO SCH (15:14)
[2021-02-28] MEDS: GABAPENTIN 100 MG CAPSULE PO SCH ×2 (15:14→21:45)
[2021-02-28] MEDS: DULoxetine HCL 20 MG CAPSULE.DR PO SCH (16:25)
[2021-02-28] MEDS: ATORVASTATIN CA 10 MG TABLET (FP) PO SCH (21:45)
[2021-02-28] MEDS ORDERED: ZOLPIDEM TARTRATE 5 MG TABLET PO PRN (23:00)
[2021-03-01] MEDS ORDERED: PIPERACILLIN/TAZOBACTAM 2.25 GM VIAL IVPB ONE ×2 (01:03→09:24)
[2021-03-01] MEDS ORDERED: DEXTROSE 5%-WATER - 50 ML IVPB ONE ×2 (01:03→09:24)
[2021-03-01] MEDS: PIPERACILLIN/TAZOB 2.25 GM 2.25 GM in DEXTROSE 5%-WATER - 50 ML IVPB SCH ×2 (01:14→09:34)
[2021-03-01] MEDS: INSULIN (LEVEMIR) 100 UNITS/ML UNITS SQ SCH (06:30)
[2021-03-01] MEDS: INSULIN SLIDING SCALE (NOVOLOG) 1 VIAL SQ SCH ×2 (06:30→11:20)
[2021-03-01] MEDS: metoPROLOL SUCCINATE 25 MG TAB.SR.24H (FP) PO SCH (09:36)
[2021-03-01] MEDS: VITAMIN B COMP W-C 1 EA TABLET (NEPHRO-VITE) PO SCH (09:36)
[2021-03-01] MEDS: GABAPENTIN 100 MG CAPSULE PO SCH (09:36)
[2021-03-01] MEDS: PANTOPRAZOLE 40 MG TABLET PO SCH (09:36)
[2021-03-01] MEDS: APIXABAN 2.5 MG TABLET PO SCH (09:36)
[2021-03-01] MEDS ORDERED: PT OWN MED DRAWER 7, Y5N ONE (09:41)
[2021-03-01] MEDS: DULoxetine HCL 20 MG CAPSULE.DR PO SCH (09:42)
[2021-03-01] MEDS: COLLAGENASE CLOSTRIDIUM HIST. 30 GRAMS TUBE TP SCH (11:19)
[2021-03-01] MEDS: POVIDONE-IODINE 10% SOLN 118 ML BOTTLE TP SCH (11:19)
[2021-03-01 11:36] VITALS: TEMP 98
[2021-03-01 13:13] VITALS: BP 154/64; PULSE 69
== END 2021-03-01 14:15 | DRG 291 ==
LOC: JER 15:13 → JERBED 20:00 → OBSVTOIN 22:28 → J4W 02-20 00:23 → J4S 02-21 16:45 → J6S 02-27 23:26
PROVIDERS: ADMIT Internal Medicine; ATTEND Internal Medicine
PROC: 5A1D70Z Performance of Urinary Filtration, Intermittent, Less than 6 Hours Per Day (ICD-10-PCS; principal; 2021-02-28)
DX: I13.2 Hypertensive heart and chronic kidney disease with heart failure and with stage 5 chronic kidney disease, or end stage renal disease (principal); N18.6 End stage renal disease; I50.32 Chronic diastolic (congestive) heart failure; E11.51 Type 2 diabetes mellitus with diabetic peripheral angiopathy without gangrene; R55 Syncope and collapse; I48.0 Paroxysmal atrial fibrillation; E11.22 Type 2 diabetes mellitus with diabetic chronic kidney disease; E11.40 Type 2 diabetes mellitus with diabetic neuropathy, unspecified; I73.9 Peripheral vascular disease, unspecified; D63.1 Anemia in chronic kidney disease; E78.00 Pure hypercholesterolemia, unspecified; F41.8 Other specified anxiety disorders; E11.621 Type 2 diabetes mellitus with foot ulcer; Z99.2 Dependence on renal dialysis; E78.5 Hyperlipidemia, unspecified; Z95.1 Presence of aortocoronary bypass graft; E11.65 Type 2 diabetes mellitus with hyperglycemia; I25.119 Atherosclerotic heart disease of native coronary artery with unspecified angina pectoris; E66.9 Obesity, unspecified; Z68.26 Body mass index [BMI] 26.0-26.9, adult
CPT/HCPCS: 36415; 71045-TC-FY; 73630-TC-LT; 73630-TC-RT-FY; 80048; 80053; 80061; 82550; 82962; 83721; 83735; 84100; 84484; 85025; 85027; 85610; 85730; 86803; 86850; 86900; 86901; 87070; 87186; 87205; 87340; 93005; 93010; 93880-TC; 93990-TC; 97161-GP; 99285-25; C9803; G0378; G0463-25; J1756; U0003; U0005

== ENCOUNTER 2021-03-19 15:38 | Inpatient (IN) | payer OTHER, BC ==
[2021-03-19 17:40] LABS: BASO % 0.3 % (0-2.0); EOS % 1.2 % (0-4.5); HEMATOCRIT 25.7 % (35.4-49); HEMOGLOBIN 8.2 GM/dL (11.7-16.9); LYMPH % 8.4 % (8-40); MCH 27.5 pg (25.7-33.7); MCHC 32.1 g/dl (32.0-35.9); MEAN CELL VOLUME 85.7 fl (80-96); MEAN PLT VOLUME 7.5 fl (7.5-11.1); MONO % 4.6 % (3.8-10.2); NEUT % 85.5 % (42.8-82.8); PLATELET COUNT 312 K/MM3 (134-434); RDW 19.3 % (11.9-15.9); WHITE BLOOD COUNT 10.8 K/mm3 (4.0-10.0)
[2021-03-19 17:46] LABS: INR 1.45 (0.83-1.09); PROTHROMBIN TIME (PATIENT) 17.4 SEC (9.7-13.0)
[2021-03-19 17:48] LABS: ACTIVATED PTT 34.3 SECONDS (25.2-36.5)
[2021-03-19 17:51] LABS: CALCIUM 7.6 mg/dL (8.5-10.1)
[2021-03-19 17:52] LABS: BLOOD UREA NITROGEN 36.5 mg/dL (7-18)
[2021-03-19 17:55] LABS: CREATININE 4.2 mg/dL (0.55-1.3)
[2021-03-19 17:57] LABS: BILIRUBIN,TOTAL 0.4 mg/dL (0.2-1); TOT PROT 6.9 g/dl (6.4-8.2)
[2021-03-19] MEDS ORDERED: VANCOMYCIN PREMIX 1.5 GM 1,500 MG/300 ML BAG IVPB ONE (19:08)
[2021-03-19] MEDS ORDERED: VANCOMYCIN 500 MG VIAL (RESTRICTED TO ID ONLY) ONE (19:35)
[2021-03-19] MEDS ORDERED: VANCOMYCIN 1 GRAM (PRE-DOCKED) 1,000 MG/250 ML BAG IVPB ONE (19:36)
[2021-03-19] MEDS ORDERED: SIMETHICONE 80 MG TAB.CHEW (FP) PO PRN (21:17)
[2021-03-19] MEDS: GABAPENTIN 100 MG CAPSULE PO SCH (22:20)
[2021-03-19] MEDS: ZOLPIDEM TARTRATE 5 MG TABLET PO PRN (22:20)
[2021-03-19] MEDS: ATORVASTATIN CA 10 MG TABLET (FP) PO SCH (22:20)
[2021-03-19] MEDS: INSULIN SLIDING SCALE (NOVOLOG) 1 VIAL SQ SCH (22:20)
[2021-03-19] MEDS: APIXABAN 2.5 MG TABLET PO SCH (22:20)
[2021-03-19] MEDS: SODIUM BICARBONATE 650 MG TABLET PO SCH (22:20)
[2021-03-19] MEDS: INSULIN (LEVEMIR) 100 UNITS/ML UNITS SQ SCH (22:22)
[2021-03-20] MEDS: INSULIN SLIDING SCALE (NOVOLOG) 1 VIAL SQ SCH ×4 (06:15→23:04)
[2021-03-20] MEDS: INSULIN (LEVEMIR) 100 UNITS/ML UNITS SQ SCH ×2 (06:15→23:02)
[2021-03-20] MEDS ORDERED: SODIUM CHLORIDE 250 ML IV PRN (07:00)
[2021-03-20] MEDS ORDERED: EPOETIN ALFA-EPBX 20,000 UNIT/ML VIAL IVPUSH ONE (07:00)
[2021-03-20 09:43] LABS: BASO % 0.7 % (0-2.0); EOS % 3.3 % (0-4.5); HEMATOCRIT 21.9 % (35.4-49); LYMPH % 17.9 % (8-40); MCH 27.1 pg (25.7-33.7); MCHC 31.8 g/dl (32.0-35.9); MEAN CELL VOLUME 85.2 fl (80-96); MEAN PLT VOLUME 7.6 fl (7.5-11.1); MONO % 7.5 % (3.8-10.2); NEUT % 70.6 % (42.8-82.8); PLATELET COUNT 263 K/MM3 (134-434); RBC 2.58 M/mm3 (4.00-5.60); RDW 18.9 % (11.9-15.9); WHITE BLOOD COUNT 6.8 K/mm3 (4.0-10.0)
[2021-03-20 10:08] LABS: ALBUMIN 1.7 g/dl (3.4-5.0); BLOOD UREA NITROGEN 42.2 mg/dL (7-18); CALCIUM 7.6 mg/dL (8.5-10.1)
[2021-03-20 10:12] LABS: BILIRUBIN,TOTAL 0.3 mg/dL (0.2-1); CREATININE 4.5 mg/dL (0.55-1.3); PHOSPHOROUS 3.7 mg/dL (2.5-4.9); TOT PROT 6.8 g/dl (6.4-8.2)
[2021-03-20] MEDS ORDERED: PT OWN MED DRAWER 7, Y5N ONE (11:03)
[2021-03-20] MEDS ORDERED: PIPERACILLIN/TAZOBACTAM 2.25 GM VIAL IVPB ONE ×2 (11:39→17:43)
[2021-03-20] MEDS ORDERED: DEXTROSE 5%-WATER - 50 ML IVPB ONE ×2 (11:39→17:43)
[2021-03-20 11:41] LABS: N-TERMINAL BNP 9991.6 pg/ml (5-125)
[2021-03-20] MEDS: GABAPENTIN 100 MG CAPSULE PO SCH ×2 (13:09→23:01)
[2021-03-20] MEDS: metoPROLOL SUCCINATE 25 MG TAB.SR.24H (FP) PO SCH (13:09)
[2021-03-20] MEDS: DULoxetine HCL 20 MG CAPSULE.DR PO SCH (13:09)
[2021-03-20] MEDS: APIXABAN 2.5 MG TABLET PO SCH ×2 (13:09→13:14)
[2021-03-20] MEDS: SODIUM BICARBONATE 650 MG TABLET PO SCH (13:09)
[2021-03-20] MEDS: AMMONIUM LACTATE 12% LOTION 225 GM BOTTLE TP SCH ×2 (13:12→23:05)
[2021-03-20] MEDS: PIPERACILLIN/TAZOB 2.25 GM 2.25 GM in DEXTROSE 5%-WATER - 50 ML IVPB SCH ×2 (13:12→17:52)
[2021-03-20] MEDS ORDERED: INSULIN (NOVOLOG) ASPART 100 UNITS/ML 10ML VIAL ONE ×2 (17:22→21:06)
[2021-03-20] MEDS: ATORVASTATIN CA 10 MG TABLET (FP) PO SCH (23:01)
[2021-03-20] MEDS: ZOLPIDEM TARTRATE 5 MG TABLET PO PRN (23:22)
[2021-03-21] MEDS ORDERED: PIPERACILLIN/TAZOBACTAM 2.25 GM VIAL IVPB ONE ×3 (02:53→17:16)
[2021-03-21] MEDS ORDERED: DEXTROSE 5%-WATER - 50 ML IVPB ONE ×2 (02:53→08:57)
[2021-03-21] MEDS: PIPERACILLIN/TAZOB 2.25 GM 2.25 GM in DEXTROSE 5%-WATER - 50 ML IVPB SCH ×3 (03:16→19:59)
[2021-03-21] MEDS: INSULIN SLIDING SCALE (NOVOLOG) 1 VIAL SQ SCH ×4 (07:29→21:23)
[2021-03-21] MEDS: INSULIN (LEVEMIR) 100 UNITS/ML UNITS SQ SCH ×2 (08:55→22:10)
[2021-03-21] MEDS ORDERED: PT OWN MED DRAWER 7, Y5N ONE (08:56)
[2021-03-21] MEDS: metoPROLOL SUCCINATE 25 MG TAB.SR.24H (FP) PO SCH (09:02)
[2021-03-21] MEDS: GABAPENTIN 100 MG CAPSULE PO SCH ×2 (09:02→21:24)
[2021-03-21] MEDS: DULoxetine HCL 20 MG CAPSULE.DR PO SCH (09:02)
[2021-03-21] MEDS: AMMONIUM LACTATE 12% LOTION 225 GM BOTTLE TP SCH ×2 (09:03→21:24)
[2021-03-21 09:09] LABS: BASO % 0.6 % (0-2.0); EOS % 3.4 % (0-4.5); HEMATOCRIT 22.7 % (35.4-49); HEMOGLOBIN 7.4 GM/dL (11.7-16.9); LYMPH % 24.7 % (8-40); MCH 27.6 pg (25.7-33.7); MCHC 32.7 g/dl (32.0-35.9); MEAN CELL VOLUME 84.4 fl (80-96); MEAN PLT VOLUME 7.2 fl (7.5-11.1); MONO % 9.8 % (3.8-10.2); NEUT % 61.5 % (42.8-82.8); PLATELET COUNT 281 K/MM3 (134-434); RDW 18.9 % (11.9-15.9); WHITE BLOOD COUNT 6.5 K/mm3 (4.0-10.0)
[2021-03-21 10:01] LABS: BLOOD UREA NITROGEN 19.4 mg/dL (7-18)
[2021-03-21 10:06] LABS: CREATININE 2.8 mg/dL (0.55-1.3)
[2021-03-21] MEDS ORDERED: INSULIN (NOVOLOG) ASPART 100 UNITS/ML 10ML VIAL ONE (21:07)
[2021-03-21] MEDS: ATORVASTATIN CA 10 MG TABLET (FP) PO SCH (21:24)
[2021-03-22] MEDS ORDERED: PIPERACILLIN/TAZOBACTAM 2.25 GM VIAL IVPB ONE ×2 (02:16→10:26)
[2021-03-22] MEDS ORDERED: DEXTROSE 5%-WATER - 50 ML IVPB ONE ×2 (02:16→10:26)
[2021-03-22] MEDS: PIPERACILLIN/TAZOB 2.25 GM 2.25 GM in DEXTROSE 5%-WATER - 50 ML IVPB SCH ×3 (02:32→17:09)
[2021-03-22] MEDS: INSULIN (LEVEMIR) 100 UNITS/ML UNITS SQ SCH ×2 (07:01→21:16)
[2021-03-22] MEDS: INSULIN SLIDING SCALE (NOVOLOG) 1 VIAL SQ SCH ×4 (07:02→21:17)
[2021-03-22] MEDS ORDERED: SODIUM CHLORIDE 250 ML IV PRN (08:22)
[2021-03-22] MEDS ORDERED: PT OWN MED DRAWER 7, Y5N ONE ×2 (10:27→13:58)
[2021-03-22 10:34] LABS: HEMATOCRIT 29.2 % (35.4-49); HEMOGLOBIN 9.4 GM/dL (11.7-16.9); MCH 27.4 pg (25.7-33.7); MCHC 32.2 g/dl (32.0-35.9); MEAN CELL VOLUME 85.1 fl (80-96); MEAN PLT VOLUME 7.1 fl (7.5-11.1); PLATELET COUNT 273 K/MM3 (134-434); RBC 3.43 M/mm3 (4.00-5.60); RDW 18.1 % (11.9-15.9); WHITE BLOOD COUNT 6.2 K/mm3 (4.0-10.0)
[2021-03-22 11:00] LABS: BLOOD UREA NITROGEN 27.8 mg/dL (7-18); CALCIUM 8.1 mg/dL (8.5-10.1)
[2021-03-22 11:04] LABS: CREATININE 3.9 mg/dL (0.55-1.3)
[2021-03-22] MEDS ORDERED: EPOETIN ALFA-EPBX 20,000 UNIT/ML VIAL IVPUSH ONE (13:00)
[2021-03-22] MEDS: GABAPENTIN 100 MG CAPSULE PO SCH ×2 (13:19→21:15)
[2021-03-22] MEDS: DULoxetine HCL 20 MG CAPSULE.DR PO SCH (13:19)
[2021-03-22] MEDS: metoPROLOL SUCCINATE 25 MG TAB.SR.24H (FP) PO SCH (14:01)
[2021-03-22] MEDS: APIXABAN 2.5 MG TABLET PO SCH ×2 (14:01→21:15)
[2021-03-22] MEDS: AMMONIUM LACTATE 12% LOTION 225 GM BOTTLE TP SCH ×3 (14:02→21:20)
[2021-03-22] MEDS ORDERED: INSULIN (NOVOLOG) ASPART 100 UNITS/ML 10ML VIAL ONE (21:07)
[2021-03-22] MEDS: ATORVASTATIN CA 10 MG TABLET (FP) PO SCH (21:15)
[2021-03-22] MEDS: ZOLPIDEM TARTRATE 5 MG TABLET PO PRN (22:17)
[2021-03-23] MEDS ORDERED: DEXTROSE 5%-WATER - 50 ML IVPB ONE ×3 (02:20→17:09)
[2021-03-23] MEDS ORDERED: PIPERACILLIN/TAZOBACTAM 2.25 GM VIAL IVPB ONE ×3 (02:20→17:08)
[2021-03-23] MEDS: PIPERACILLIN/TAZOB 2.25 GM 2.25 GM in DEXTROSE 5%-WATER - 50 ML IVPB SCH ×3 (02:29→17:10)
[2021-03-23] MEDS: INSULIN SLIDING SCALE (NOVOLOG) 1 VIAL SQ SCH ×4 (06:08→21:39)
[2021-03-23] MEDS: INSULIN (LEVEMIR) 100 UNITS/ML UNITS SQ SCH ×2 (06:09→21:39)
[2021-03-23] MEDS: GABAPENTIN 100 MG CAPSULE PO SCH ×2 (10:12→21:38)
[2021-03-23] MEDS: AMMONIUM LACTATE 12% LOTION 225 GM BOTTLE TP SCH ×2 (10:12→21:48)
[2021-03-23] MEDS: APIXABAN 2.5 MG TABLET PO SCH ×2 (10:12→21:38)
[2021-03-23] MEDS: metoPROLOL SUCCINATE 25 MG TAB.SR.24H (FP) PO SCH (10:12)
[2021-03-23] MEDS ORDERED: PT OWN MED DRAWER 7, Y5N ONE (10:16)
[2021-03-23] MEDS: DULoxetine HCL 20 MG CAPSULE.DR PO SCH (10:17)
[2021-03-23] MEDS ORDERED: INSULIN (NOVOLOG) ASPART 100 UNITS/ML 10ML VIAL ONE (11:46)
[2021-03-23] MEDS: ATORVASTATIN CA 10 MG TABLET (FP) PO SCH (21:38)
[2021-03-23] MEDS: ZOLPIDEM TARTRATE 5 MG TABLET PO PRN (21:38)
[2021-03-24] MEDS ORDERED: DEXTROSE 5%-WATER - 50 ML IVPB ONE ×3 (00:57→17:53)
[2021-03-24] MEDS ORDERED: PIPERACILLIN/TAZOBACTAM 2.25 GM VIAL IVPB ONE ×3 (00:57→17:53)
[2021-03-24] MEDS: PIPERACILLIN/TAZOB 2.25 GM 2.25 GM in DEXTROSE 5%-WATER - 50 ML IVPB SCH ×3 (01:03→18:05)
[2021-03-24] MEDS: INSULIN SLIDING SCALE (NOVOLOG) 1 VIAL SQ SCH ×4 (06:41→22:14)
[2021-03-24] MEDS: INSULIN (LEVEMIR) 100 UNITS/ML UNITS SQ SCH ×2 (06:41→22:11)
[2021-03-24] MEDS ORDERED: SODIUM CHLORIDE 250 ML IV PRN (09:00)
[2021-03-24] MEDS: AMMONIUM LACTATE 12% LOTION 225 GM BOTTLE TP SCH ×2 (09:04→22:11)
[2021-03-24] MEDS ORDERED: EPOETIN ALFA-EPBX 10,000 UNIT/ML VIAL SQ ONE (09:15)
[2021-03-24 09:50] LABS: HEMATOCRIT 29.4 % (35.4-49); HEMOGLOBIN 9.7 GM/dL (11.7-16.9); MCH 28.3 pg (25.7-33.7); MCHC 32.9 g/dl (32.0-35.9); MEAN CELL VOLUME 85.8 fl (80-96); MEAN PLT VOLUME 7.5 fl (7.5-11.1); PLATELET COUNT 284 K/MM3 (134-434); RBC 3.42 M/mm3 (4.00-5.60); RDW 17.5 % (11.9-15.9); WHITE BLOOD COUNT 7.4 K/mm3 (4.0-10.0)
[2021-03-24 10:09] LABS: CALCIUM 7.3 mg/dL (8.5-10.1)
[2021-03-24 10:10] LABS: BLOOD UREA NITROGEN 27.8 mg/dL (7-18)
[2021-03-24 10:12] LABS: CREATININE 3.7 mg/dL (0.55-1.3)
[2021-03-24 10:13] LABS: PHOSPHOROUS 2.4 mg/dL (2.5-4.9)
[2021-03-24] MEDS: metoPROLOL SUCCINATE 25 MG TAB.SR.24H (FP) PO SCH (12:23)
[2021-03-24] MEDS: GABAPENTIN 100 MG CAPSULE PO SCH ×2 (12:24→22:11)
[2021-03-24] MEDS: DULoxetine HCL 20 MG CAPSULE.DR PO SCH (12:24)
[2021-03-24] MEDS: APIXABAN 2.5 MG TABLET PO SCH ×2 (12:24→22:11)
[2021-03-24] MEDS: ATORVASTATIN CA 10 MG TABLET (FP) PO SCH (22:11)
[2021-03-24] MEDS: ZOLPIDEM TARTRATE 5 MG TABLET PO PRN (22:38)
[2021-03-25] MEDS ORDERED: PIPERACILLIN/TAZOBACTAM 2.25 GM VIAL IVPB ONE ×3 (01:34→17:34)
[2021-03-25] MEDS ORDERED: DEXTROSE 5%-WATER - 50 ML IVPB ONE ×3 (01:34→17:34)
[2021-03-25] MEDS: PIPERACILLIN/TAZOB 2.25 GM 2.25 GM in DEXTROSE 5%-WATER - 50 ML IVPB SCH ×3 (01:38→17:39)
[2021-03-25] MEDS: INSULIN (LEVEMIR) 100 UNITS/ML UNITS SQ SCH ×2 (07:00→21:20)
[2021-03-25] MEDS: INSULIN SLIDING SCALE (NOVOLOG) 1 VIAL SQ SCH ×4 (07:00→21:21)
[2021-03-25] MEDS ORDERED: PT OWN MED DRAWER 7, Y5N ONE (10:11)
[2021-03-25] MEDS: APIXABAN 2.5 MG TABLET PO SCH (10:53)
[2021-03-25] MEDS: GABAPENTIN 100 MG CAPSULE PO SCH ×2 (10:54→21:20)
[2021-03-25] MEDS: AMMONIUM LACTATE 12% LOTION 225 GM BOTTLE TP SCH ×2 (10:54→21:19)
[2021-03-25] MEDS: DULoxetine HCL 20 MG CAPSULE.DR PO SCH (10:54)
[2021-03-25] MEDS: metoPROLOL SUCCINATE 25 MG TAB.SR.24H (FP) PO SCH (10:54)
[2021-03-25 11:42] LABS: BASO % 0.9 % (0-2.0); EOS % 4.6 % (0-4.5); HEMATOCRIT 33.3 % (35.4-49); HEMOGLOBIN 10.8 GM/dL (11.7-16.9); LYMPH % 27.6 % (8-40); MCH 28.2 pg (25.7-33.7); MCHC 32.4 g/dl (32.0-35.9); MEAN CELL VOLUME 86.9 fl (80-96); MEAN PLT VOLUME 7.3 fl (7.5-11.1); MONO % 8.8 % (3.8-10.2); NEUT % 58.1 % (42.8-82.8); PLATELET COUNT 292 K/MM3 (134-434); RBC 3.82 M/mm3 (4.00-5.60); RDW 17.7 % (11.9-15.9); WHITE BLOOD COUNT 6.7 K/mm3 (4.0-10.0)
[2021-03-25 12:07] LABS: BILIRUBIN,TOTAL 0.4 mg/dL (0.2-1); TOT PROT 7.1 g/dl (6.4-8.2)
[2021-03-25] MEDS ORDERED: amLODIPine BESYLATE 2.5 MG TABLET (FP) PO ONE (20:20)
[2021-03-25] MEDS: ZOLPIDEM TARTRATE 5 MG TABLET PO PRN (21:20)
[2021-03-25] MEDS: ATORVASTATIN CA 10 MG TABLET (FP) PO SCH (21:20)
[2021-03-26] MEDS ORDERED: DEXTROSE 5%-WATER - 50 ML IVPB ONE ×3 (02:20→16:12)
[2021-03-26] MEDS ORDERED: PIPERACILLIN/TAZOBACTAM 2.25 GM VIAL IVPB ONE ×4 (02:20→18:25)
[2021-03-26] MEDS: PIPERACILLIN/TAZOB 2.25 GM 2.25 GM in DEXTROSE 5%-WATER - 50 ML IVPB SCH ×2 (02:23→10:17)
[2021-03-26] MEDS: INSULIN (LEVEMIR) 100 UNITS/ML UNITS SQ SCH ×2 (06:10→22:49)
[2021-03-26] MEDS: INSULIN SLIDING SCALE (NOVOLOG) 1 VIAL SQ SCH ×3 (06:10→23:05)
[2021-03-26] MEDS ORDERED: PT OWN MED DRAWER 7, Y5N ONE (10:11)
[2021-03-26] MEDS: DULoxetine HCL 20 MG CAPSULE.DR PO SCH (10:17)
[2021-03-26] MEDS: AMMONIUM LACTATE 12% LOTION 225 GM BOTTLE TP SCH (10:17)
[2021-03-26] MEDS: metoPROLOL SUCCINATE 25 MG TAB.SR.24H (FP) PO SCH (10:17)
[2021-03-26] MEDS: GABAPENTIN 100 MG CAPSULE PO SCH ×2 (10:17→22:49)
[2021-03-26] MEDS ORDERED: SODIUM CHLORIDE 250 ML IV PRN ×2 (12:20→21:26)
[2021-03-26] MEDS ORDERED: MIDAZOLAM HCL 2 MG/2 ML SINGLE DOSE VIAL ONE (16:26)
[2021-03-26] MEDS ORDERED: PROPOFOL 20 ML ONE (16:26)
[2021-03-26] MEDS ORDERED: ROCURONIUM BROMIDE 50 MG/5 ML SYRINGE ONE (18:29)
[2021-03-26] MEDS ORDERED: VASOPRESSIN 20 UNITS/ML VIAL IV ONE (18:36)
[2021-03-26] MEDS ORDERED: DEXAMETHASONE SOD PHOSPHATE 4 MG/1 ML VIAL ONE (19:11)
[2021-03-26] MEDS ORDERED: GLYCOPYRROLATE 0.2 MG/1 ML VIAL ONE (20:01)
[2021-03-26] MEDS ORDERED: NEOSTIGMINE METHYLSULFATE 0.5 MG/ML - 10 ML MDV ONE (20:01)
[2021-03-26] MEDS ORDERED: morphine SULFATE 4 MG/ML VIAL IVPUSH PRN (20:19)
[2021-03-26] MEDS ORDERED: SODIUM CHLORIDE 1,000 ML IV SCH (20:30)
[2021-03-26] MEDS ORDERED: SIMETHICONE 80 MG TAB.CHEW (FP) PO PRN (21:26)
[2021-03-26] MEDS: HYDROmorphone HCl 2 MG/ML VIAL IVPB PRN (22:35)
[2021-03-26] MEDS: ATORVASTATIN CA 10 MG TABLET (FP) PO SCH (22:49)
[2021-03-26] MEDS: ZOLPIDEM TARTRATE 5 MG TABLET PO PRN (22:49)
[2021-03-27] MEDS ORDERED: PIPERACILLIN/TAZOBACTAM 2.25 GM VIAL IVPB ONE ×3 (01:24→17:48)
[2021-03-27] MEDS ORDERED: DEXTROSE 5%-WATER - 50 ML IVPB ONE ×3 (01:25→17:48)
[2021-03-27] MEDS: PIPERACILLIN/TAZOB 2.25 GM 2.25 GM in DEXTROSE 5%-WATER - 50 ML IVPB SCH ×3 (01:30→17:49)
[2021-03-27] MEDS: INSULIN (LEVEMIR) 100 UNITS/ML UNITS SQ SCH ×2 (06:15→21:19)
[2021-03-27] MEDS: INSULIN SLIDING SCALE (NOVOLOG) 1 VIAL SQ SCH ×4 (06:16→22:05)
[2021-03-27] MEDS: HYDROmorphone HCl 2 MG/ML VIAL IVPB PRN ×3 (06:59→15:35)
[2021-03-27 10:34] LABS: HEMATOCRIT 27.4 % (35.4-49); HEMOGLOBIN 8.6 GM/dL (11.7-16.9); MCH 27.9 pg (25.7-33.7); MCHC 31.5 g/dl (32.0-35.9); MEAN CELL VOLUME 88.6 fl (80-96); PLATELET COUNT 309 K/MM3 (134-434); RBC 3.09 M/mm3 (4.00-5.60); RDW 17.7 % (11.9-15.9); WHITE BLOOD COUNT 11.3 K/mm3 (4.0-10.0)
[2021-03-27] MEDS ORDERED: PT OWN MED DRAWER 7, Y5N ONE ×2 (10:52→12:59)
[2021-03-27 10:59] LABS: CALCIUM 7.3 mg/dL (8.5-10.1)
[2021-03-27 11:00] LABS: BLOOD UREA NITROGEN 35.7 mg/dL (7-18)
[2021-03-27 11:03] LABS: CREATININE 4.4 mg/dL (0.55-1.3)
[2021-03-27] MEDS ORDERED: EPOETIN ALFA-EPBX 10,000 UNIT/ML VIAL IVPUSH ONE (11:15)
[2021-03-27] MEDS: GABAPENTIN 100 MG CAPSULE PO SCH ×2 (13:01→21:19)
[2021-03-27] MEDS: DULoxetine HCL 20 MG CAPSULE.DR PO SCH (13:03)
[2021-03-27] MEDS: metoPROLOL SUCCINATE 25 MG TAB.SR.24H (FP) PO SCH (13:34)
[2021-03-27] MEDS ORDERED: ACETAMINOPHEN 500 MG TABLET (FP) PO PRN (13:41)
[2021-03-27] MEDS: AMMONIUM LACTATE 12% LOTION 225 GM BOTTLE TP SCH ×2 (13:52→21:18)
[2021-03-27] MEDS: ACETAMINOPHEN 1000 MG/100 ML VIAL (NON FORMULARY) IVPB PRN ×2 (13:53→21:59)
[2021-03-27 19:22] VITALS: BMI 23.3
[2021-03-27] MEDS ORDERED: INSULIN (NOVOLOG) ASPART 100 UNITS/ML 10ML VIAL ONE (20:51)
[2021-03-27] MEDS: APIXABAN 2.5 MG TABLET PO SCH (21:19)
[2021-03-27] MEDS: ATORVASTATIN CA 10 MG TABLET (FP) PO SCH (21:20)
[2021-03-27] MEDS: ZOLPIDEM TARTRATE 5 MG TABLET PO PRN (21:22)
[2021-03-28] MEDS ORDERED: PIPERACILLIN/TAZOBACTAM 2.25 GM VIAL IVPB ONE ×3 (01:22→17:38)
[2021-03-28] MEDS ORDERED: DEXTROSE 5%-WATER - 50 ML IVPB ONE ×3 (01:23→17:39)
[2021-03-28] MEDS: PIPERACILLIN/TAZOB 2.25 GM 2.25 GM in DEXTROSE 5%-WATER - 50 ML IVPB SCH ×3 (01:37→17:40)
[2021-03-28] MEDS: HYDROmorphone HCl 2 MG/ML VIAL IVPB PRN ×5 (03:06→23:18)
[2021-03-28] MEDS: INSULIN SLIDING SCALE (NOVOLOG) 1 VIAL SQ SCH ×4 (06:20→22:17)
[2021-03-28] MEDS: INSULIN (LEVEMIR) 100 UNITS/ML UNITS SQ SCH ×2 (06:20→22:17)
[2021-03-28 09:06] LABS: HEMATOCRIT 29.6 % (35.4-49); HEMOGLOBIN 9.3 GM/dL (11.7-16.9); MCH 28.3 pg (25.7-33.7); MCHC 31.4 g/dl (32.0-35.9); MEAN CELL VOLUME 90.2 fl (80-96); MEAN PLT VOLUME 7.8 fl (7.5-11.1); PLATELET COUNT 254 K/MM3 (134-434); RBC 3.28 M/mm3 (4.00-5.60); WHITE BLOOD COUNT 8.1 K/mm3 (4.0-10.0)
[2021-03-28 09:15] LABS: BLOOD UREA NITROGEN 22.2 mg/dL (7-18); CALCIUM 7.9 mg/dL (8.5-10.1)
[2021-03-28 09:19] LABS: CREATININE 3.3 mg/dL (0.55-1.3)
[2021-03-28] MEDS: metoPROLOL SUCCINATE 25 MG TAB.SR.24H (FP) PO SCH (09:19)
[2021-03-28] MEDS: AMMONIUM LACTATE 12% LOTION 225 GM BOTTLE TP SCH ×2 (09:37→21:16)
[2021-03-28] MEDS: APIXABAN 2.5 MG TABLET PO SCH ×2 (09:37→21:16)
[2021-03-28] MEDS: GABAPENTIN 100 MG CAPSULE PO SCH ×2 (09:37→21:16)
[2021-03-28] MEDS: DULoxetine HCL 20 MG CAPSULE.DR PO SCH (09:37)
[2021-03-28] MEDS: ACETAMINOPHEN 1000 MG/100 ML VIAL (NON FORMULARY) IVPB PRN (10:20)
[2021-03-28] MEDS ORDERED: BUPIVACAINE HCL/PF 0.5% (5MG/ML) 10 ML VIAL ONE (11:09)
[2021-03-28] MEDS ORDERED: LIDOCAINE HCL 1%, 10 MG/ML (50 mL VIAL) SQ ONE (11:28)
[2021-03-28] MEDS ORDERED: BUPIVACAINE HCL/PF 0.5% (5 MG/ML) 30 ML VIAL IJ ONE (11:28)
[2021-03-28] MEDS: ONDANSETRON 4 MG/2 ML VIAL IVPUSH PRN (16:35)
[2021-03-28] MEDS: ATORVASTATIN CA 10 MG TABLET (FP) PO SCH (21:16)
[2021-03-29] MEDS ORDERED: DEXTROSE 5%-WATER - 50 ML IVPB ONE ×2 (02:20→09:34)
[2021-03-29] MEDS ORDERED: PIPERACILLIN/TAZOBACTAM 2.25 GM VIAL IVPB ONE ×2 (02:20→09:34)
[2021-03-29] MEDS: ACETAMINOPHEN 325 MG TABLET (FP) PO PRN ×3 (02:36→18:38)
[2021-03-29] MEDS: PIPERACILLIN/TAZOB 2.25 GM 2.25 GM in DEXTROSE 5%-WATER - 50 ML IVPB SCH ×2 (02:37→09:42)
[2021-03-29] MEDS: INSULIN (LEVEMIR) 100 UNITS/ML UNITS SQ SCH ×2 (05:59→21:54)
[2021-03-29] MEDS: INSULIN SLIDING SCALE (NOVOLOG) 1 VIAL SQ SCH ×4 (06:00→21:53)
[2021-03-29] MEDS ORDERED: INSULIN (LEVEMIR) 100 UNITS/ML UNITS SQ ONE (06:35)
[2021-03-29 08:17] LABS: BASO % 0.4 % (0-2.0); HEMATOCRIT 23.9 % (35.4-49); HEMOGLOBIN 7.7 GM/dL (11.7-16.9); LYMPH % 15.2 % (8-40); MCH 28.6 pg (25.7-33.7); MCHC 32.5 g/dl (32.0-35.9); MEAN PLT VOLUME 7.4 fl (7.5-11.1); MONO % 7.2 % (3.8-10.2); NEUT % 75.2 % (42.8-82.8); PLATELET COUNT 202 K/MM3 (134-434); RBC 2.71 M/mm3 (4.00-5.60); RDW 18.7 % (11.9-15.9); WHITE BLOOD COUNT 6.6 K/mm3 (4.0-10.0)
[2021-03-29 08:45] LABS: CALCIUM 7.1 mg/dL (8.5-10.1)
[2021-03-29 08:46] LABS: ALBUMIN 1.7 g/dl (3.4-5.0)
[2021-03-29 08:49] LABS: CREATININE 4.2 mg/dL (0.55-1.3)
[2021-03-29 08:50] LABS: BILIRUBIN,TOTAL 0.5 mg/dL (0.2-1); BLOOD UREA NITROGEN 33.2 mg/dL (7-18)
[2021-03-29 08:51] LABS: TOT PROT 5.7 g/dl (6.4-8.2)
[2021-03-29] MEDS: APIXABAN 2.5 MG TABLET PO SCH ×2 (09:42→21:51)
[2021-03-29] MEDS: metoPROLOL SUCCINATE 25 MG TAB.SR.24H (FP) PO SCH (09:42)
[2021-03-29] MEDS: GABAPENTIN 100 MG CAPSULE PO SCH ×2 (09:42→21:50)
[2021-03-29] MEDS ORDERED: PT OWN MED DRAWER 7, Y5N ONE (09:44)
[2021-03-29] MEDS: DULoxetine HCL 20 MG CAPSULE.DR PO SCH (09:45)
[2021-03-29] MEDS: ATORVASTATIN CA 10 MG TABLET (FP) PO SCH (21:50)
[2021-03-29] MEDS: AMMONIUM LACTATE 12% LOTION 225 GM BOTTLE TP SCH (21:52)
[2021-03-30] MEDS: ACETAMINOPHEN 325 MG TABLET (FP) PO PRN ×3 (06:05→18:56)
[2021-03-30] MEDS: INSULIN (LEVEMIR) 100 UNITS/ML UNITS SQ SCH ×2 (06:06→21:36)
[2021-03-30] MEDS: INSULIN SLIDING SCALE (NOVOLOG) 1 VIAL SQ SCH ×4 (06:07→21:39)
[2021-03-30] MEDS ORDERED: SODIUM CHLORIDE 250 ML IV PRN (10:00)
[2021-03-30] MEDS ORDERED: EPOETIN ALFA-EPBX 20,000 UNIT/ML VIAL IVPUSH ONE (10:00)
[2021-03-30] MEDS: AMMONIUM LACTATE 12% LOTION 225 GM BOTTLE TP SCH ×2 (10:00→21:34)
[2021-03-30] MEDS: DULoxetine HCL 20 MG CAPSULE.DR PO SCH ×2 (10:19→14:03)
[2021-03-30] MEDS: GABAPENTIN 100 MG CAPSULE PO SCH ×3 (10:19→21:34)
[2021-03-30] MEDS: APIXABAN 2.5 MG TABLET PO SCH ×3 (10:19→21:34)
[2021-03-30] MEDS: metoPROLOL SUCCINATE 25 MG TAB.SR.24H (FP) PO SCH ×2 (10:19→14:02)
[2021-03-30 11:22] LABS: HEMOGLOBIN 7.7 GM/dL (11.7-16.9); MCH 28.5 pg (25.7-33.7); MCHC 32.2 g/dl (32.0-35.9); MEAN CELL VOLUME 88.5 fl (80-96); MEAN PLT VOLUME 8.3 fl (7.5-11.1); PLATELET COUNT 220 K/MM3 (134-434); RBC 2.71 M/mm3 (4.00-5.60); RDW 18.4 % (11.9-15.9); WHITE BLOOD COUNT 6.1 K/mm3 (4.0-10.0)
[2021-03-30 12:48] LABS: CALCIUM 7.2 mg/dL (8.5-10.1)
[2021-03-30 12:49] LABS: BLOOD UREA NITROGEN 43.3 mg/dL (7-18)
[2021-03-30 12:52] LABS: CREATININE 4.9 mg/dL (0.55-1.3)
[2021-03-30 12:53] LABS: PHOSPHOROUS 4.1 mg/dL (2.5-4.9)
[2021-03-30] MEDS ORDERED: PT OWN MED DRAWER 7, Y5N ONE (13:56)
[2021-03-30] MEDS: ATORVASTATIN CA 10 MG TABLET (FP) PO SCH (21:34)
[2021-03-31] MEDS: ACETAMINOPHEN 325 MG TABLET (FP) PO PRN ×2 (01:25→16:14)
[2021-03-31] MEDS: INSULIN (LEVEMIR) 100 UNITS/ML UNITS SQ SCH ×2 (06:05→21:22)
[2021-03-31] MEDS: INSULIN SLIDING SCALE (NOVOLOG) 1 VIAL SQ SCH ×4 (06:06→21:22)
[2021-03-31] MEDS: HYDROmorphone HCl 2 MG/ML VIAL IVPB PRN ×2 (09:13→22:33)
[2021-03-31] MEDS: metoPROLOL SUCCINATE 25 MG TAB.SR.24H (FP) PO SCH (09:13)
[2021-03-31] MEDS: GABAPENTIN 100 MG CAPSULE PO SCH ×2 (09:13→21:22)
[2021-03-31] MEDS: APIXABAN 2.5 MG TABLET PO SCH ×2 (09:13→21:21)
[2021-03-31] MEDS: AMMONIUM LACTATE 12% LOTION 225 GM BOTTLE TP SCH ×2 (09:43→22:35)
[2021-03-31] MEDS: DULoxetine HCL 20 MG CAPSULE.DR PO SCH (10:45)
[2021-03-31] MEDS ORDERED: PT OWN MED DRAWER 7, Y5N ONE (20:57)
[2021-03-31] MEDS: ATORVASTATIN CA 10 MG TABLET (FP) PO SCH (21:21)
[2021-04-01] MEDS: INSULIN SLIDING SCALE (NOVOLOG) 1 VIAL SQ SCH ×4 (06:00→22:12)
[2021-04-01] MEDS: ACETAMINOPHEN 325 MG TABLET (FP) PO PRN ×2 (06:31→16:39)
[2021-04-01] MEDS: INSULIN (LEVEMIR) 100 UNITS/ML UNITS SQ SCH ×2 (06:32→21:02)
[2021-04-01] MEDS ORDERED: PT OWN MED DRAWER 7, Y5N ONE (10:22)
[2021-04-01] MEDS: metoPROLOL SUCCINATE 25 MG TAB.SR.24H (FP) PO SCH (10:23)
[2021-04-01] MEDS: APIXABAN 2.5 MG TABLET PO SCH ×2 (10:23→21:01)
[2021-04-01] MEDS: GABAPENTIN 100 MG CAPSULE PO SCH ×2 (10:23→21:01)
[2021-04-01] MEDS: DULoxetine HCL 20 MG CAPSULE.DR PO SCH (10:24)
[2021-04-01] MEDS: AMMONIUM LACTATE 12% LOTION 225 GM BOTTLE TP SCH ×2 (10:48→21:06)
[2021-04-01] MEDS ORDERED: INSULIN (NOVOLOG) ASPART 100 UNITS/ML 10ML VIAL ONE (20:51)
[2021-04-01] MEDS: ATORVASTATIN CA 10 MG TABLET (FP) PO SCH (21:02)
[2021-04-02] MEDS: HYDROmorphone HCl 2 MG/ML VIAL IVPB PRN (02:26)
[2021-04-02] MEDS: INSULIN (LEVEMIR) 100 UNITS/ML UNITS SQ SCH ×2 (06:06→22:25)
[2021-04-02] MEDS: INSULIN SLIDING SCALE (NOVOLOG) 1 VIAL SQ SCH ×4 (06:07→22:25)
[2021-04-02] MEDS ORDERED: SODIUM CHLORIDE 250 ML IV PRN (09:06)
[2021-04-02] MEDS ORDERED: PT OWN MED DRAWER 7, Y5N ONE (09:13)
[2021-04-02] MEDS: DULoxetine HCL 20 MG CAPSULE.DR PO SCH (09:14)
[2021-04-02] MEDS: AMMONIUM LACTATE 12% LOTION 225 GM BOTTLE TP SCH ×2 (09:14→22:27)
[2021-04-02] MEDS: metoPROLOL SUCCINATE 25 MG TAB.SR.24H (FP) PO SCH (09:14)
[2021-04-02] MEDS: APIXABAN 2.5 MG TABLET PO SCH ×2 (09:14→22:21)
[2021-04-02] MEDS: GABAPENTIN 100 MG CAPSULE PO SCH ×2 (09:14→22:21)
[2021-04-02 09:53] LABS: EOS % 3.2 % (0-4.5); HEMATOCRIT 26.3 % (35.4-49); HEMOGLOBIN 8.5 GM/dL (11.7-16.9); LYMPH % 18.5 % (8-40); MCH 28.6 pg (25.7-33.7); MCHC 32.3 g/dl (32.0-35.9); MEAN CELL VOLUME 88.3 fl (80-96); MEAN PLT VOLUME 7.3 fl (7.5-11.1); NEUT % 70.3 % (42.8-82.8); PLATELET COUNT 330 K/MM3 (134-434); RBC 2.98 M/mm3 (4.00-5.60); RDW 17.8 % (11.9-15.9); WHITE BLOOD COUNT 6.4 K/mm3 (4.0-10.0)
[2021-04-02] MEDS ORDERED: EPOETIN ALFA-EPBX 20,000 UNIT/ML VIAL SQ ONE (10:00)
[2021-04-02 10:55] LABS: CALCIUM 8.1 mg/dL (8.5-10.1)
[2021-04-02 10:56] LABS: ALBUMIN 1.7 g/dl (3.4-5.0); BLOOD UREA NITROGEN 37.4 mg/dL (7-18)
[2021-04-02 10:58] LABS: BILIRUBIN,TOTAL 0.3 mg/dL (0.2-1)
[2021-04-02] MEDS: ATORVASTATIN CA 10 MG TABLET (FP) PO SCH (22:21)
[2021-04-03] MEDS: HYDROmorphone HCl 2 MG/ML VIAL IVPB PRN ×2 (01:24→09:14)
[2021-04-03] MEDS: ACETAMINOPHEN 325 MG TABLET (FP) PO PRN ×2 (05:52→13:48)
[2021-04-03] MEDS: INSULIN SLIDING SCALE (NOVOLOG) 1 VIAL SQ SCH ×4 (06:01→22:19)
[2021-04-03] MEDS: INSULIN (LEVEMIR) 100 UNITS/ML UNITS SQ SCH ×2 (06:02→22:18)
[2021-04-03] MEDS ORDERED: PT OWN MED DRAWER 7, Y5N ONE (09:13)
[2021-04-03] MEDS: metoPROLOL SUCCINATE 25 MG TAB.SR.24H (FP) PO SCH (09:14)
[2021-04-03] MEDS: DULoxetine HCL 20 MG CAPSULE.DR PO SCH (09:14)
[2021-04-03] MEDS: GABAPENTIN 100 MG CAPSULE PO SCH ×2 (09:14→22:18)
[2021-04-03] MEDS: APIXABAN 2.5 MG TABLET PO SCH ×2 (09:14→22:18)
[2021-04-03] MEDS: AMMONIUM LACTATE 12% LOTION 225 GM BOTTLE TP SCH ×2 (09:16→22:22)
[2021-04-03 14:07] LABS: HEP B CORE AB, TOT Negative (Negative)
[2021-04-03] MEDS: amLODIPine BESYLATE 2.5 MG TABLET (FP) PO SCH (14:49)
[2021-04-03] MEDS: ATORVASTATIN CA 10 MG TABLET (FP) PO SCH (22:18)
[2021-04-04] MEDS: INSULIN SLIDING SCALE (NOVOLOG) 1 VIAL SQ SCH ×4 (06:00→21:24)
[2021-04-04] MEDS ORDERED: SODIUM CHLORIDE 250 ML IV PRN (07:00)
[2021-04-04] MEDS: INSULIN (LEVEMIR) 100 UNITS/ML UNITS SQ SCH ×2 (07:14→21:24)
[2021-04-04] MEDS ORDERED: EPOETIN ALFA-EPBX 20,000 UNIT/ML VIAL IVPUSH ONE (08:00)
[2021-04-04 09:24] LABS: HEMATOCRIT 26.6 % (35.4-49); HEMOGLOBIN 8.6 GM/dL (11.7-16.9); MCH 28.4 pg (25.7-33.7); MCHC 32.2 g/dl (32.0-35.9); MEAN CELL VOLUME 88.1 fl (80-96); MEAN PLT VOLUME 7.2 fl (7.5-11.1); PLATELET COUNT 331 K/MM3 (134-434); RBC 3.01 M/mm3 (4.00-5.60); RDW 18.6 % (11.9-15.9)
[2021-04-04 09:53] LABS: CALCIUM 8.1 mg/dL (8.5-10.1)
[2021-04-04 09:54] LABS: BLOOD UREA NITROGEN 31.6 mg/dL (7-18)
[2021-04-04 09:57] LABS: CREATININE 3.3 mg/dL (0.55-1.3)
[2021-04-04 09:58] LABS: PHOSPHOROUS 1.7 mg/dL (2.5-4.9)
[2021-04-04] MEDS ORDERED: PT OWN MED DRAWER 7, Y5N ONE (12:08)
[2021-04-04] MEDS: APIXABAN 2.5 MG TABLET PO SCH ×2 (12:13→21:23)
[2021-04-04] MEDS: amLODIPine BESYLATE 2.5 MG TABLET (FP) PO SCH (12:13)
[2021-04-04] MEDS: AMMONIUM LACTATE 12% LOTION 225 GM BOTTLE TP SCH ×3 (12:14→21:23)
[2021-04-04] MEDS: DULoxetine HCL 20 MG CAPSULE.DR PO SCH (12:14)
[2021-04-04] MEDS: GABAPENTIN 100 MG CAPSULE PO SCH ×2 (12:14→21:23)
[2021-04-04] MEDS: metoPROLOL SUCCINATE 25 MG TAB.SR.24H (FP) PO SCH (12:14)
[2021-04-04] MEDS: ATORVASTATIN CA 10 MG TABLET (FP) PO SCH (21:23)
[2021-04-05] MEDS: INSULIN (LEVEMIR) 100 UNITS/ML UNITS SQ SCH ×2 (06:11→21:58)
[2021-04-05] MEDS: INSULIN SLIDING SCALE (NOVOLOG) 1 VIAL SQ SCH ×4 (06:11→21:59)
[2021-04-05] MEDS ORDERED: PT OWN MED DRAWER 7, Y5N ONE (09:35)
[2021-04-05] MEDS: DULoxetine HCL 20 MG CAPSULE.DR PO SCH (09:36)
[2021-04-05] MEDS: GABAPENTIN 100 MG CAPSULE PO SCH ×2 (09:37→21:55)
[2021-04-05] MEDS: amLODIPine BESYLATE 2.5 MG TABLET (FP) PO SCH (09:37)
[2021-04-05] MEDS: AMMONIUM LACTATE 12% LOTION 225 GM BOTTLE TP SCH ×2 (09:37→21:55)
[2021-04-05] MEDS: metoPROLOL SUCCINATE 25 MG TAB.SR.24H (FP) PO SCH (09:37)
[2021-04-05] MEDS: APIXABAN 2.5 MG TABLET PO SCH ×2 (09:37→21:55)
[2021-04-05] MEDS: ACETAMINOPHEN 325 MG TABLET (FP) PO PRN (12:11)
[2021-04-05] MEDS ORDERED: SODIUM CHLORIDE 250 ML IV PRN (12:25)
[2021-04-05] MEDS: ATORVASTATIN CA 10 MG TABLET (FP) PO SCH (21:55)
[2021-04-05] MEDS ORDERED: metoPROLOL SUCCINATE 25 MG TAB.SR.24H (FP) PO ONE (22:39)
[2021-04-05] MEDS ORDERED: MELATONIN 5 MG TABLETS PO ONE (23:30)
[2021-04-06] MEDS: INSULIN SLIDING SCALE (NOVOLOG) 1 VIAL SQ SCH ×4 (06:05→22:05)
[2021-04-06] MEDS: INSULIN (LEVEMIR) 100 UNITS/ML UNITS SQ SCH ×2 (06:19→22:04)
[2021-04-06] MEDS: ACETAMINOPHEN 325 MG TABLET (FP) PO PRN (10:00)
[2021-04-06] MEDS: GABAPENTIN 100 MG CAPSULE PO SCH ×2 (10:00→22:04)
[2021-04-06] MEDS: APIXABAN 2.5 MG TABLET PO SCH ×2 (10:00→22:03)
[2021-04-06] MEDS: DULoxetine HCL 20 MG CAPSULE.DR PO SCH (10:00)
[2021-04-06] MEDS: AMINO ACIDS/PROTEIN HYDROLYS 30 ML LIQUID.PKT PO SCH (10:00)
[2021-04-06] MEDS: amLODIPine BESYLATE 2.5 MG TABLET (FP) PO SCH (10:00)
[2021-04-06] MEDS: AMMONIUM LACTATE 12% LOTION 225 GM BOTTLE TP SCH ×2 (10:01→22:00)
[2021-04-06] MEDS ORDERED: EPOETIN ALFA-EPBX 20,000 UNIT/ML VIAL IVPUSH ONE (11:00)
[2021-04-06 12:35] LABS: HEMATOCRIT 28.5 % (35.4-49); MCH 28.2 pg (25.7-33.7); MCHC 31.6 g/dl (32.0-35.9); MEAN CELL VOLUME 89.2 fl (80-96); MEAN PLT VOLUME 7.6 fl (7.5-11.1); PLATELET COUNT 300 K/MM3 (134-434); RBC 3.19 M/mm3 (4.00-5.60); WHITE BLOOD COUNT 3.7 K/mm3 (4.0-10.0)
[2021-04-06 12:48] LABS: CALCIUM 8.5 mg/dL (8.5-10.1)
[2021-04-06 12:49] LABS: BLOOD UREA NITROGEN 23.3 mg/dL (7-18)
[2021-04-06 12:52] LABS: CREATININE 2.2 mg/dL (0.55-1.3); PHOSPHOROUS 1.9 mg/dL (2.5-4.9)
[2021-04-06] MEDS: COLLAGENASE CLOSTRIDIUM HIST. 30 GRAMS TUBE TP SCH (16:26)
[2021-04-06] MEDS ORDERED: INSULIN (NOVOLOG) ASPART 100 UNITS/ML 10ML VIAL ONE (21:24)
[2021-04-06] MEDS ORDERED: MELATONIN 5 MG TABLETS PO ONE (22:00)
[2021-04-06] MEDS: ATORVASTATIN CA 10 MG TABLET (FP) PO SCH (22:04)
[2021-04-07] MEDS: INSULIN SLIDING SCALE (NOVOLOG) 1 VIAL SQ SCH ×4 (06:23→21:43)
[2021-04-07] MEDS: INSULIN (LEVEMIR) 100 UNITS/ML UNITS SQ SCH ×2 (06:23→21:43)
[2021-04-07] MEDS: ONDANSETRON 4 MG/2 ML VIAL IVPUSH PRN (09:06)
[2021-04-07] MEDS ORDERED: PT OWN MED DRAWER 7, Y5N ONE ×2 (10:08→11:53)
[2021-04-07] MEDS: amLODIPine BESYLATE 2.5 MG TABLET (FP) PO SCH (10:16)
[2021-04-07] MEDS: AMINO ACIDS/PROTEIN HYDROLYS 30 ML LIQUID.PKT PO SCH (10:16)
[2021-04-07] MEDS: DULoxetine HCL 20 MG CAPSULE.DR PO SCH (10:16)
[2021-04-07] MEDS: APIXABAN 2.5 MG TABLET PO SCH ×2 (10:16→21:43)
[2021-04-07] MEDS: GABAPENTIN 100 MG CAPSULE PO SCH ×2 (10:16→21:43)
[2021-04-07] MEDS: AMMONIUM LACTATE 12% LOTION 225 GM BOTTLE TP SCH ×2 (10:17→21:26)
[2021-04-07] MEDS ORDERED: INSULIN (NOVOLOG) ASPART 100 UNITS/ML 10ML VIAL ONE ×3 (11:54→21:13)
[2021-04-07] MEDS: COLLAGENASE CLOSTRIDIUM HIST. 30 GRAMS TUBE TP SCH (12:00)
[2021-04-07] MEDS: MELATONIN 5 MG TABLETS PO PRN (21:43)
[2021-04-07] MEDS: ATORVASTATIN CA 10 MG TABLET (FP) PO SCH (21:43)
[2021-04-08] MEDS: INSULIN SLIDING SCALE (NOVOLOG) 1 VIAL SQ SCH ×4 (06:37→21:36)
[2021-04-08] MEDS: INSULIN (LEVEMIR) 100 UNITS/ML UNITS SQ SCH ×2 (06:39→21:36)
[2021-04-08 08:43] LABS: HEMATOCRIT 28.5 % (35.4-49); HEMOGLOBIN 9.2 GM/dL (11.7-16.9); MCH 28.5 pg (25.7-33.7); MCHC 32.2 g/dl (32.0-35.9); MEAN CELL VOLUME 88.6 fl (80-96); PLATELET COUNT 277 K/MM3 (134-434); RBC 3.22 M/mm3 (4.00-5.60); RDW 19.8 % (11.9-15.9); WHITE BLOOD COUNT 7.8 K/mm3 (4.0-10.0)
[2021-04-08] MEDS: AMINO ACIDS/PROTEIN HYDROLYS 30 ML LIQUID.PKT PO SCH (08:58)
[2021-04-08] MEDS: GABAPENTIN 100 MG CAPSULE PO SCH ×2 (09:43→21:33)
[2021-04-08] MEDS: amLODIPine BESYLATE 2.5 MG TABLET (FP) PO SCH (09:43)
[2021-04-08] MEDS: APIXABAN 2.5 MG TABLET PO SCH ×2 (09:43→21:32)
[2021-04-08] MEDS: AMMONIUM LACTATE 12% LOTION 225 GM BOTTLE TP SCH ×2 (09:43→21:33)
[2021-04-08] MEDS: COLLAGENASE CLOSTRIDIUM HIST. 30 GRAMS TUBE TP SCH (09:46)
[2021-04-08] MEDS ORDERED: PT OWN MED DRAWER 7, Y5N ONE (09:52)
[2021-04-08] MEDS: DULoxetine HCL 20 MG CAPSULE.DR PO SCH (09:54)
[2021-04-08] MEDS: ATORVASTATIN CA 10 MG TABLET (FP) PO SCH (21:32)
[2021-04-08] MEDS: MELATONIN 5 MG TABLETS PO PRN (21:33)
[2021-04-09] MEDS: ACETAMINOPHEN 325 MG TABLET (FP) PO PRN ×2 (03:55→11:33)
[2021-04-09] MEDS: INSULIN (LEVEMIR) 100 UNITS/ML UNITS SQ SCH ×2 (06:30→22:06)
[2021-04-09] MEDS: INSULIN SLIDING SCALE (NOVOLOG) 1 VIAL SQ SCH ×4 (06:30→22:06)
[2021-04-09] MEDS ORDERED: SODIUM CHLORIDE 250 ML IV PRN (08:02)
[2021-04-09] MEDS: AMINO ACIDS/PROTEIN HYDROLYS 30 ML LIQUID.PKT PO SCH (08:32)
[2021-04-09] MEDS ORDERED: EPOETIN ALFA-EPBX 10,000 UNIT/ML VIAL IVPUSH ONE (09:00)
[2021-04-09 10:38] LABS: HEMATOCRIT 28.4 % (35.4-49); HEMOGLOBIN 9.1 GM/dL (11.7-16.9); MCH 28.6 pg (25.7-33.7); MCHC 32.1 g/dl (32.0-35.9); MEAN PLT VOLUME 7.6 fl (7.5-11.1); PLATELET COUNT 301 K/MM3 (134-434); RBC 3.19 M/mm3 (4.00-5.60); RDW 20.1 % (11.9-15.9); WHITE BLOOD COUNT 8.7 K/mm3 (4.0-10.0)
[2021-04-09] MEDS ORDERED: PT OWN MED DRAWER 7, Y5N ONE (10:57)
[2021-04-09 10:58] LABS: BLOOD UREA NITROGEN 36.5 mg/dL (7-18); CALCIUM 8.6 mg/dL (8.5-10.1)
[2021-04-09 11:00] LABS: CREATININE 3.5 mg/dL (0.55-1.3); PHOSPHOROUS 3.7 mg/dL (2.5-4.9)
[2021-04-09] MEDS: APIXABAN 2.5 MG TABLET PO SCH ×2 (12:59→21:30)
[2021-04-09] MEDS: COLLAGENASE CLOSTRIDIUM HIST. 30 GRAMS TUBE TP SCH (12:59)
[2021-04-09] MEDS: GABAPENTIN 100 MG CAPSULE PO SCH ×2 (12:59→21:31)
[2021-04-09] MEDS: AMMONIUM LACTATE 12% LOTION 225 GM BOTTLE TP SCH ×2 (12:59→21:31)
[2021-04-09] MEDS: DULoxetine HCL 20 MG CAPSULE.DR PO SCH (12:59)
[2021-04-09] MEDS: amLODIPine BESYLATE 2.5 MG TABLET (FP) PO SCH (12:59)
[2021-04-09] MEDS: ATORVASTATIN CA 10 MG TABLET (FP) PO SCH (21:31)
[2021-04-10] MEDS: INSULIN (LEVEMIR) 100 UNITS/ML UNITS SQ SCH ×2 (06:02→21:31)
[2021-04-10] MEDS: INSULIN SLIDING SCALE (NOVOLOG) 1 VIAL SQ SCH ×4 (06:03→21:31)
[2021-04-10] MEDS ORDERED: PT OWN MED DRAWER 7, Y5N ONE (09:29)
[2021-04-10] MEDS: AMMONIUM LACTATE 12% LOTION 225 GM BOTTLE TP SCH ×2 (09:31→21:30)
[2021-04-10] MEDS: GABAPENTIN 100 MG CAPSULE PO SCH ×2 (09:31→21:30)
[2021-04-10] MEDS: APIXABAN 2.5 MG TABLET PO SCH ×2 (09:31→21:30)
[2021-04-10] MEDS: amLODIPine BESYLATE 2.5 MG TABLET (FP) PO SCH (09:31)
[2021-04-10] MEDS: AMINO ACIDS/PROTEIN HYDROLYS 30 ML LIQUID.PKT PO SCH (09:31)
[2021-04-10] MEDS: COLLAGENASE CLOSTRIDIUM HIST. 30 GRAMS TUBE TP SCH (09:32)
[2021-04-10] MEDS: DULoxetine HCL 20 MG CAPSULE.DR PO SCH (09:33)
[2021-04-10] MEDS ORDERED: INSULIN (NOVOLOG) ASPART 100 UNITS/ML 10ML VIAL ONE (11:39)
[2021-04-10] MEDS: ACETAMINOPHEN 325 MG TABLET (FP) PO PRN ×2 (15:52→21:29)
[2021-04-10] MEDS: MELATONIN 5 MG TABLETS PO PRN (21:29)
[2021-04-10] MEDS: ATORVASTATIN CA 10 MG TABLET (FP) PO SCH (21:30)
[2021-04-11] MEDS: ACETAMINOPHEN 325 MG TABLET (FP) PO PRN ×3 (03:05→15:13)
[2021-04-11] MEDS: INSULIN SLIDING SCALE (NOVOLOG) 1 VIAL SQ SCH ×3 (06:07→17:18)
[2021-04-11] MEDS: INSULIN (LEVEMIR) 100 UNITS/ML UNITS SQ SCH (06:07)
[2021-04-11] MEDS ORDERED: INSULIN (LEVEMIR) 100 UNITS/ML UNITS SQ ONE (07:01)
[2021-04-11] MEDS ORDERED: SODIUM CHLORIDE 250 ML IV PRN (08:15)
[2021-04-11] MEDS: AMINO ACIDS/PROTEIN HYDROLYS 30 ML LIQUID.PKT PO SCH (08:43)
[2021-04-11 08:47] VITALS: TEMP 97.9
[2021-04-11] MEDS: GABAPENTIN 100 MG CAPSULE PO SCH (09:29)
[2021-04-11] MEDS: DULoxetine HCL 20 MG CAPSULE.DR PO SCH ×2 (09:29→15:37)
[2021-04-11] MEDS: AMMONIUM LACTATE 12% LOTION 225 GM BOTTLE TP SCH (09:29)
[2021-04-11] MEDS: APIXABAN 2.5 MG TABLET PO SCH (09:29)
[2021-04-11] MEDS: amLODIPine BESYLATE 2.5 MG TABLET (FP) PO SCH ×2 (09:30→15:36)
[2021-04-11] MEDS ORDERED: EPOETIN ALFA-EPBX 20,000 UNIT/ML VIAL IVPUSH ONE (10:00)
[2021-04-11 10:05] LABS: HEMATOCRIT 28.7 % (35.4-49); HEMOGLOBIN 9.3 GM/dL (11.7-16.9); MCH 28.8 pg (25.7-33.7); MCHC 32.2 g/dl (32.0-35.9); MEAN CELL VOLUME 89.5 fl (80-96); MEAN PLT VOLUME 7.8 fl (7.5-11.1); PLATELET COUNT 263 K/MM3 (134-434); RBC 3.21 M/mm3 (4.00-5.60)
[2021-04-11 10:25] LABS: CALCIUM 8.7 mg/dL (8.5-10.1)
[2021-04-11 12:32] VITALS: BP 122/56; PULSE 52
[2021-04-11] MEDS ORDERED: PT OWN MED DRAWER 7, Y5N ONE (15:32)
[2021-04-11] MEDS: COLLAGENASE CLOSTRIDIUM HIST. 30 GRAMS TUBE TP SCH (15:38)
== END 2021-04-11 18:46 | disposition home health service (06) | DRG 239 ==
LOC: JER 15:38 → JERBED 16:47 → J5S 20:37 → J6S 03-20 15:04
PROVIDERS: ADMIT Internal Medicine; ATTEND Internal Medicine
PROC: 30233N1 Transfusion of Nonautologous Red Blood Cells into Peripheral Vein, Percutaneous Approach (ICD-10-PCS; 2021-03-21)
PROC: 0Y6H0Z3 Detachment at Right Lower Leg, Low, Open Approach (ICD-10-PCS; principal; 2021-03-26 16:00)
PROC: 0WPG03Z Removal of Infusion Device from Peritoneal Cavity, Open Approach (ICD-10-PCS; 2021-03-28)
PROC: 5A1D70Z Performance of Urinary Filtration, Intermittent, Less than 6 Hours Per Day (ICD-10-PCS; 2021-04-11)
DX: E11.52 Type 2 diabetes mellitus with diabetic peripheral angiopathy with gangrene (principal); N18.6 End stage renal disease; I13.2 Hypertensive heart and chronic kidney disease with heart failure and with stage 5 chronic kidney disease, or end stage renal disease; I50.32 Chronic diastolic (congestive) heart failure; E11.621 Type 2 diabetes mellitus with foot ulcer; L89.620 Pressure ulcer of left heel, unstageable; L89.152 Pressure ulcer of sacral region, stage 2; I73.9 Peripheral vascular disease, unspecified; E78.5 Hyperlipidemia, unspecified; D63.1 Anemia in chronic kidney disease; I25.10 Atherosclerotic heart disease of native coronary artery without angina pectoris; Z95.1 Presence of aortocoronary bypass graft; E11.40 Type 2 diabetes mellitus with diabetic neuropathy, unspecified; F41.8 Other specified anxiety disorders; I48.0 Paroxysmal atrial fibrillation
CPT/HCPCS: 11042; 36415; 36430; 71045-TC-FY; 75635-TC; 80048; 80053; 82962; 83036; 83735; 83880; 84100; 84484; 85025; 85027; 85610; 85730; 86704; 86706; 86707; 86708; 86709; 86803; 86850; 86900; 86901; 86922; 87040; 87340; 88300-TC; 93005; 93010; 94760; 97162-GP; 99285-25; C9803; J0131; P9058; Q5106; Q9967; U0003; U0005